=== PATIENT | male | born 1955 | race Caucasian/White ===

== ENCOUNTER 2023-07-15 16:07 | Outpatient (OUT) | payer MEDICARE, SELFPAY ==
[2023-07-15 16:53] LABS: Anion Gap 14.5; Calcium 9.2 mg/dL (8.5-10.1); Carbon Dioxide 23.5 mmol/L (21.0-32.0); Chloride 100 mmol/L (98-107); Estimated GFR (African America >60 (>=60); Estimated GFR (Non-African Ame >60 (>=60); Glucose 136 mg/dL (74-106); Magnesium 2.2 mg/dL (1.8-2.4); Sodium 134 mmol/L (136-145)
== END 2023-07-15 16:08 | disposition home or self-care (01) ==
PROVIDERS: PCP Family Medicine; Visit Provider Internal Medicine Interventional Cardiology
DX: I50.22 Chronic systolic (congestive) heart failure (principal)
CPT/HCPCS: 36415; 80048; 83735; 83880

== ENCOUNTER 2023-08-10 12:55 | Outpatient (OUT) | payer MEDICARE, SELFPAY ==
[2023-08-10 13:34] LABS: Basophils Absolute Auto 0.1 10^3/uL (0.0-0.1); Basophils Percent Auto 0.7 % (0.2-2.0); Eosinophils Absolute Auto 0.1 10^3/uL (0.0-0.7); Eosinophils Percent Auto 1.1 % (0.9-7.0); Hematocrit 38.8 % (42.0-54.0); Hemoglobin 12.3 g/dL (14.0-18.0); Immature Granulocytes Abs Auto 0.03 10^3/uL (0.00-0.03); Immature Granulocytes Pct Auto 0.3 % (0.0-0.5); Lymphocytes Absolute Auto 0.7 10^3/uL (1.2-3.8); Lymphocytes Percent Auto 6.9 % (20.5-60.0); Mean Corpuscular HGB Conc 31.7 g/dL (29.9-35.2); Mean Corpuscular Hemoglobin 27.3 pg (25.9-34.0); Mean Corpuscular Volume 86.2 fL (80.0-94.0); Monocytes Absolute Auto 0.7 10^3/uL (0.3-0.8); Monocytes Percent Auto 6.9 % (1.7-12.0); Neutrophils Absolute Auto 7.9 10^3/uL (1.4-6.5); Neutrophils Percent Auto 84.1 % (43.0-75.0); Platelet Count 334 10^3/uL (150-450); Red Cell Distribution Width 16.2 % (11.0-15.0); White Blood Count 9.4 10^3/uL (4.0-11.0)
[2023-08-10 13:50] LABS: Estimated Average Glucose 183 mg/dL
[2023-08-10 14:00] LABS: Creatinine Urine Random 42.58 mg/dL (20.00-300.00); Microalbumin Urine Random 2.3 mg/dL (<=30.0)
[2023-08-10 14:34] LABS: Alanine Aminotransferase 25 U/L (16-63); Albumin Globulin Ratio 0.7; Alkaline Phosphatase 135 U/L (46-116); Anion Gap 14.8; Aspartate Amino Transferase 17 U/L (15-37); BUN Creatinine Ratio 18.3; Bilirubin Total 0.6 mg/dL (0.2-1.0); Calcium 8.8 mg/dL (8.5-10.1); Carbon Dioxide 24.3 mmol/L (21.0-32.0); Chloride 99 mmol/L (98-107); Cholesterol 127 mg/dL (<=200); Creatine Kinase 49 U/L (39-308); Estimated GFR (African America >60 (>=60); Estimated GFR (Non-African Ame >60 (>=60); Globulin 4.4 g/dL; Glucose 209 mg/dL (74-106); HDL Cholesterol 32 mg/dL (40-60); Potassium 4.1 mmol/L (3.5-5.1); Sodium 134 mmol/L (136-145); Total Protein 7.4 g/dL (6.4-8.2); Triglycerides 53 mg/dL (<=150); VLDL CHOLESTEROL 10.6 mg/dL
== END 2023-08-10 12:56 | disposition home or self-care (01) ==
LOC: LAB 12:56
PROVIDERS: PCP Internal Medicine; Visit Provider Internal Medicine
DX: M79.10 Myalgia, unspecified site (principal); E11.9 Type 2 diabetes mellitus without complications; E78.5 Hyperlipidemia, unspecified
CPT/HCPCS: 36415; 80053; 80061; 82043; 82550; 82570; 83036; 85025

== ENCOUNTER 2023-08-30 10:48 | Outpatient (OUT) | payer MEDICARE, SELFPAY ==
--- OUTSIDE RECORDS SUMMARY | 2023-08-30 10:55 | XMS_ITS | CCD ---
Author Name Unknown Address [address] [place] [address] Organization [facility] Care Team Providers Care Furnace Repairer Name Role Phone DEEP, QUYEN Unavailable Unavailable DEEP, QUYEN Unavailable Unavailable HOUSE, MARK Unavailable Unavailable HOUSE, MARK Unavailable Unavailable CARSON ASHLEY Consulting Unavailable JENNY, FRANCA Attending Unavailable JENNY, FRANCA Admitting Unavailable JENNY, FRANCA Consulting Unavailable House DO, Mark P Primary Care Provider House DOMark P Primary Care Provider HOUSE, MARK P Referring Unavailable HOUSE, MARK P Primary Care Unavailable HOUSE, MARK P Referring Unavailable HOUSE, MARK P Primary Care Unavailable Shaikh Bautista MD Primary Care Provider SHAIKH BAUTISTA Attending Unavailable Zeeshan Carmichael MD Attending Unavailable HOUSE, MARK P Primary Care Unavailable Amol BARRAGAN, Zeeshan Trammell Attending Unavailable HOUSE, MARK P Primary Care Unavailable HOUSE, MARK P Primary Care Unavailable Zeeshan Carmichael MD Attending Unavailable HOUSE, MARK P Primary Care Unavailable Zeeshan Carmichael MD Attending Unavailable HOUSE, MARK P Primary Care Unavailable Zeeshan Carmcihael MD Attending Unavailable HOUSE, MARK P Primary Care Unavailable Zeeshan Carmichael MD Attending Unavailable HOUSE, MARK P Primary Care Unavailable HOUSE, MARK P Attending Unavailable HOUSE, MARK P Referring Unavailable HOUSE, MARK P Primary Care Unavailable HOUSE, MARK P Referring Unavailable HOUSE, MARK P Primary Care Unavailable HOUSE, MARK P Referring Unavailable HOUSE, MARK P Primary Care Unavailable HOUSE, MARK P Referring Unavailable HOUSE, MARK P Primary Care Unavailable HOUSE, MARK P Referring Unavailable HOUSE, MARK P Primary Care Unavailable HOUSE, MARK P Referring Unavailable HOUSE, MARK P Primary Care Unavailable HOUSE, MARK P Referring Unavailable HOUSE, MARK P Primary Care Unavailable HOUSE, MARK P Referring Unavailable HOUSE, MARK P Primary Care Unavailable HOUSE, MARK P Referring Unavailable HOUSE, MARK P Primary Care Unavailable HOUSE, MARK P Referring Unavailable HOUSE, MARK P Primary Care Unavailable HOUSE, MARK P Referring Unavailable HOUSE, MARK P Primary Care Unavailable HOUSE, MARK P Referring Unavailable HOUSE, MARK P Primary Care Unavailable HOUSE, MARK P Referring Unavailable HOUSE, MARK P Primary Care Unavailable HOUSE, MARK P Referring Unavailable HOUSE, MARK P Primary Care Unavailable HOUSE, MARK P Referring Unavailable HOUSE, MARK P Primary Care Unavailable HOUSE, MARK P Referring Unavailable HOUSE, MARK P Primary Care Unavailable HOUSE, MARK P Referring Unavailable HOUSE, MARK P Primary Care Unavailable HOUSE, MARK P Referring Unavailable HOUSE, MARK P Primary Care Unavailable JAVIER, BRI Referring Unavailable DEEP, QUYEN Attending Unavailable DEEP, QUYEN Referring Unavailable SHAWNA, SHELDON Attending Unavailable EFRAIN, SARMED Referring Unavailable SANAULLAH, KATY Referring Unavailable SANAULLAH, KATY Referring Unavailable JAVIER, BRI Referring Unavailable JAVIER, BRI Admitting Unavailable GANGWANI, YUSUF MARISCAL Attending Unavailab le MOUKARBELCLARISSA Attending Unavailable HERCHER, LETICIA Referring Unavailable HERCHER, LETICIA Referring Unavailable JOY, ZAKI Attending Unavailable RENETTA, HANI Referring Unavailable EFRAIN, SARMED Referring Unavailable RICHARD, TOMÁS Referring Unavailable SANAULLAH, KATY Referring Unavailable RENETTA, HANI Referring Unavailable GANGWANI, YUSUF MARISCAL Referring Unavailab le RENETTA, HANI Referring Unavailable EFRAIN, SARMED Referring Unavailable EFRAIN, SARMED Referring Unavailable JAVIER, BRI Admitting Unavailable EFRAIN, SARMED Attending Unavailable LOYOLA, LACEY Referring Unavailable LOYOLA, LACEY Referring Unavailable EFRAIN, SARMED Referring Unavailable EFRAIN, SARMED Referring Unavailable Allergies Allergy Classification Reported Allergen(s) Allergy Type Date of Onset Reaction(s) Facility (2 sources) codeine; Translations: [CODEINE PHOSPHATE] Drug Allergy 05-08-[address] [facility] Repository (4 sources) Codeine; Translations: [CODEINE] Drug Allergy 05-10-2023 [facility] Repository (5 sources) Codeine Drug Allergy 05-10-2023 [facility] Medications Current Medications Medication Drug Class(es) Dates Sig (Normalized) Sig (Original) aspirin 81 mg delayed release oral tablet (3 sources) Platelet Aggregation Inhibitor, Nonsteroidal Anti-inflammatory Drug take 1 tablet by mouth in the morning aspirin 81 MG EC tablet Take 81 mg by mouth in the morning. 0 Active atenolol 25 mg oral tablet (5 sources) beta-Adrenergic Yue take 1 tablet by mouth in the morning atenoloL (TENORMIN) 25 mg tablet Take 1 tablet (25 mg total) by mouth in the morning. 0 Active clopidogrel 75 mg oral tablet (8 sources) P2Y12 Platelet Inhibitor take 1 tablet by mouth in the morning clopidogrel (Plavix) 75 MG tablet Take 75 mg by mouth in the morning. 0 Active empagliflozin 25 mg oral tablet (8 sources) Sodium-Glucose Cotransporter 2 Inhibitor take 25 mg by mouth in the morning empagliflozin (Jardiance) 25 MG Indications: Heart Failure Take 25 mg by mouth in the morning. 0 Active take 1 tablet by mouth in the mo rning empagliflozin (JARDIANCE) 10 mg tablet tablet Take 1 tablet (10 mg total) by mouth in the morning. 0 Active isosorbide dinitrate 5 mg oral tablet (5 sources) Nitrate Vasodilator take 1 tablet by mouth three times daily at mealtime isosorbide dinitrate (ISORDIL) 5 mg tablet Take 1 tablet (5 mg total) by mouth 3 (three) times a day with meals. 0 Active losartan potassium 25 mg oral tablet (5 sources) Angiotensin 2 Receptor Yue take 1 tablet by mouth in the morning losartan (COZAAR) 25 mg tablet Take 1 tablet (25 mg total) by mouth in the morning. 0 Active 24 hr metoprolol succinate 50 mg extended release oral tablet (3 sources) beta-Adrenergic Yue Start: 06-16-20 take 1 tablet by mouth every twenty-four hours in the morning metoprolol succinate XL (Toprol-XL) 50 MG 24 hr tablet Take 50 mg by mouth in the morning. 0 06/16/2023 Active rosuvastatin calcium 20 mg oral tablet (8 sources) HMG-CoA Reductase Inhibitor Start: 06-16-20 End: 06-15-20 24 take 1 tablet by mouth in the morning rosuvastatin (Crestor) 20 MG tablet Take 20 mg by mouth in the morning. 0 06/16/2023 06/15/2024 Active take 1 tablet by mouth in the mo rning rosuvastatin (CRESTOR) 5 mg tablet Take 1 tablet (5 mg total) by mouth in the morning. 0 Active sacubitril 24 mg / valsartan 26 mg oral tablet (3 sources) Angiotensin 2 Receptor Yue Start: 06-16-2023 take 1 tablet by mouth in the morning sacubitril-valsartan (Entresto) 24-26 MG tablet Take 1 tablet by mouth in the morning and 1 tablet before bedtime. 0 06/16/2023 Active spironolactone 25 mg oral tablet (3 sources) Aldosterone Antagonist Start: 06-16-2023 take 1 tablet by mouth in the morning spironolactone (Aldactone) 25 MG tablet Take 25 mg by mouth in the morning. 0 06/16/2023 Active tamsulosin hydrochloride 0.4 mg oral capsule (8 sources) alpha-Adrenergic Yue Start: 02-17-2023 take 1 capsule by mouth every twenty-four hours in the morning tamsulosin (Flomax) 0.4 MG 24 hr capsule Take 0.4 mg by mouth in the morning. 0 02/17/2023 Active take 1 capsule by mouth once kiara ly tamsulosin (FLOMAX) 0.4 mg capsule Take 1 capsule (0.4 mg total) by mouth nightly. 0 Active Completed/Discontinued Medications Medication Drug Class(es) Dates Sig (Normalized) Sig (Original) alogliptin 12.5 mg oral tablet (7 sources) End: 08-09-2023 take 1 tablet by mouth in the morning alogliptin (Nesina) 12.5 MG tablet Take 12.5 mg by mouth in the morning. 0 08/09/2023 Discontinued (Therapy completed) diclofenac sodium 75 mg delayed release oral tablet (2 sources) Nonsteroidal Anti-inflammatory Drug End: 08-09-2023 take 1 tablet by mouth in the morning diclofenac (Voltaren) 75 MG EC tablet Take 75 mg by mouth in the morning and 75 mg before bedtime. Do not crush, chew, or split.. 0 08/09/2023 Discontinued (Side effects) 24 hr isosorbide mononitrate 30 mg extended release oral tablet (2 sources) Nitrate Vasodilator Start: 02-16-2023 End: 08-09-2023 take 1 tablet by mouth in the morning, then take 1 tablet by mouth every twenty-four hours isosorbide mononitrate ER (Imdur) 30 MG 24 hr tablet Take 30 mg by mouth in the morning. 0 02/16/2023 08/09/2023 Discontinued (Therapy completed) Problems Active Problems Problem Classification Problem Date Documented Date Episodic/Chronic Acute myocardial infarction (7 sources) Acute subendocardial infarction; Translations: [Non-ST elevation (NSTEMI) myocardial infarction] Onset: 07-13-2023 07-13-2023 Chronic Administrative/social admission (5 sources) Patient encounter status; Translations: [Persons encountering health services in other specified circumstances] Onset: 08-09-2023 08-09-2023 Episodic Cardiac dysrhythmias (8 sources) Ventricular tachycardia; Translations: [Paroxysmal ventricular tachycardia] Onset: 06-12-2011 08-09-2023 Chronic Chronic obstructive pulmonary disease and bronchiectasis (5 sources) Chronic obstructive lung disease; Translations: [Chronic obstructive pulmonary disease, unspecified] Onset: 06-08-2023 08-09-2023 Chronic Conduction disorders (9 sources) Encounter for adjustment and management of automatic implantable cardiac defibrillator; Translations: [Automatic implantable cardiac defibrillator in situ] Onset: 11-13-2011 08-09-2023 Chronic Congestive heart failure; nonhypertensive (14 sources) Heart failure with reduced ejection fraction; Translations: [Unspecified systolic (congestive) heart failure] Onset: 06-05-2023 08-09-2023 Chronic Coronary atherosclerosis and other heart disease (11 sources) Atherosclerotic heart disease of [place] coronary artery without angina pectoris; Translations: [Coronary arteriosclerosis] Onset: 03-23-2018 08-09-2023 Chronic Coronary atherosclerosis and other heart disease (4 sources) Presence of coronary angioplasty implant and graft; Translations: [Presence of aortocoronary bypass graft] Onset: 03-23-2018 Episodic Diabetes mellitus without complication (5 sources) Type 2 diabetes mellitus without complication; Translations: [Type 2 diabetes mellitus without complications] Onset: 08-09-2023 08-09-2023 Chronic Disorders of lipid metabolism (9 sources) Hyperlipidemia, unspecified; Translations: [Hyperlipidemia] Onset: 01-30-2011 Resolved: 08-09-2023 08-09-2023 Chronic Esophageal disorders (3 sources) Gastroesophageal reflux disease; Translations: [Gastro-esophageal reflux disease without esophagitis] Onset: 06-11-2023 08-09-2023 Chronic Essential hypertension (8 sources) Essential (primary) hypertension; Translations: [Essential hypertension] Onset: 01-30-2011 08-09-2023 Chronic Hypertension with complications and secondary hypertension (2 sources) Hypertensive heart disease with heart failure; Translations: [Hypertensive heart disease with heart failure] Onset: 06-11-2023 Chronic Open wounds of extremities (3 sources) Amputated left lower limb above knee; Translations: [Complete traumatic amputation at level between left hip and knee, initial encounter] Onset: 08-09-2023 08-09-2023 Chronic Osteoarthritis (3 sources) Osteoarthritis; Translations: [Unspecified osteoarthritis, unspecified site] Onset: 06-11-2023 08-09-2023 Chronic Other aftercare (1 source) [facility] (current) use of aspirin; Translations: [RETIREMENT (CURRENT) USE OF ASPIRIN] Onset: 03-23-2018 Episodic Other aftercare (1 source) 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 (current) use of antithrombotics/antipl atelets; Translations: [PLANNER (CURRENT) USE OF ANTITHROMBOTICS/ANTIPL ATELETS] Onset: 03-23-2018 Episodic Other bone disease and musculoskeletal deformities (3 sources) History of amputation of lower limb above knee; Translations: [Acquired absence of unspecified leg above knee] Onset: 03-17-2018 08-09-2023 Chronic Other connective tissue disease (2 sources) Muscle pain; Translations: [Myalgia, unspecified site] 08-09-2023 Episodic Other connective tissue disease (3 sources) Pain in right foot; Translations: [Pain in right foot] Onset: 08-09-2023 08-09-2023 Episodic Other lower respiratory disease (3 sources) Cough; Translations: [COUGH] Onset: 02-24-2021 Episodic Other lower respiratory disease (2 sources) Shortness of breath; Translations: [Shortness of breath] Onset: 06-05-2023 Episodic Other nervous system disorders (3 sources) Phantom limb syndrome with pain; Translations: [Phantom limb syndrome with pain] Onset: 06-11-2023 08-09-2023 Chronic Other non-traumatic joint disorders (4 sources) Pain in right shoulder; Translations: [Pain in joint, shoulder region] Onset: 07-21-2023 08-09-2023 Episodic Other non-traumatic joint disorders (1 source) Pain in left shoulder; Translations: [Pain in left shoulder] Onset: 07-21-2023 Episodic Meli-; endo-; and myocarditis; cardiomyopathy (3 sources) Dilated cardiomyopathy; Translations: [Cardiomyopathy in diseases classified elsewhere] Onset: 03-23-2018 Chronic Screening or history of mental health and substance abuse (2 sources) Personal history of nicotine dependence; Translations: [PERSONAL HISTORY OF NICOTINE DEPENDENCE] Onset: 03-23-2018 Episodic Unclassified (2 sources) Unknown / UNK(Unknown) Onset: 03-23-2018 Unclassified (1 source) Other ventricular tachycardia; Translations: [Other ventricular tachycardia] Onset: 06-08-2023 Viral infection (1 source) COVID-19; Translations: [COVID-19] Onset: 02-26-2021 Past or Other Problems Problem Classification Problem Date Documented Da te Episodic/Chronic Cardiac dysrhythmias (2 sources) Palpitations; Translations: [Palpitations] Onset: 09-03-2022 Episodic Rheumatoid arthritis and related disease (4 sources) Rheumatoid arthritis, unspecified; Translations: [Rheumatoid arthritis] Onset: 01-30-2011 Resolved: 08-09-2023 08-09-2023 Chronic Unclassified (1 source) Other ventricular tachycardia; Translations: [Other ventricular tachycardia] Onset: 06-11-2023 Results Test Name Value Interpretation Reference Range Facility 36on 08-27-2023 36 LM for patient to re turn my call. Note faxed to Jessica at [facility] in [place]. Normal [facility] 36on 08-26-2023 36 [facility] 36 Jessica from [facility] (fax#: [phone]) called requesting clearance for Mr. Bolton to return to cardiac rehab. You can always put it in your note if you prefer, and then let me know once it's finished. I'll fax it over to them. Thanks!! [facility] 36on 08-23-2023 36 [facility] Telephoneon 08-23-2023 Telephone [facility] 30on 08-21-2023 30 [facility] BASIC METABOLIC PANELon 07-30 Anion gap [Moles/Vol] 13 mmol/L Normal 7-20 [facility] Comment on above: Performed By: #### [id number] ####[facility] (BEAKER)[address] [place] [address] Calcium [Mass/Vol] 8.3 mg/dL Low 8.6-10.3 [facility] Comment on above: Performed By: #### [id number] ####[facility] ([facility])[address] [place] [address] Chloride [Moles/Vol] 106 mmol/L Normal 98-107 [facility] Comment on above: Performed By: #### [id number] ####[facility] [place] [address] CO2 [Moles/Vol] 19 mmol/L Low 21-31 [facility] Comment on above: Performed By: #### [id number] ####[facility] [place] [address] Creatinine [Mass/Vol] 0.95 mg/dL Normal 0.70-1.30 [facility] Comment on above: Performed By: #### [id number] ####[facility] [place] [address] GLOMERULAR FILTRATION RATE ML/MIN/1.73 SQ M.PREDICTED 87.2 mL/min/1.73m*2 Normal >60.0 [facility] Comment on above: Result Comment: [facility]???s estimated glomerular filtration rate (eGFR) will no longer include consideration of race in its calculation. The National Kidney Foundation???s eGFR Task Force developed new recommendations for the estimation of the glomerular filtration rate in the [place] They recommend immediate implementation of the new equation refit without the race variable in all laboratories because the calculation does not include race. In addition to not including race in the calculation and reporting, it included diversity in its development, and has acceptable performance characteristics and potential consequences that do not disproportionately affect any one group of individuals. Performed By: #### L [id number] ####[facility] ([facility])[address] [place] [address] Glucose [Mass/Vol] 154 mg/dL High 70-100 [facility] Comment on above: Performed By: #### [id number] ####[facility] (BEAKER)[address] [place] [address] Potassium [Moles/Vol] 3.9 mmol/L Normal 3.5-5.1 [facility] Comment on above: Performed By: #### [id number] ####[facility] ([facility]ER)[address] [place] [address] Sodium [Moles/Vol] 134 mmol/L Low 136-145 [facility] Comment on above: Performed By: #### [id number] ####[facility] ([facility]ER)[address] [place] [address] Urea nitrogen [Mass/Vol] 22 mg/dL Normal 7-25 [facility] Comment on above: Performed By: #### [id number] ####[facility] ([facility]ER)[address] [place] [address] UREA NITROGEN/CREATIN INE (MASS RATIO) IN SER/PLAS 23.[address] [facility] Comment on above: Performed By: #### [id number] ####[facility] ([facility])[address] [place] [address] CBC WITH AUTO DIFFERENTIALon 08-21-2023 Basophils (Bld) [#/Vol] 0.06 10*3/uL Normal 0.00-0.20 [facility] Comment on above: Performed By: #### [id number] ####[facility] (BEAKER)[address] [place] [address] Basophils/100 WBC (Bld) 0.8 % Normal 0.0-1.0 [facility] Comment on above: Performed By: #### [id number] ####[facility] ([facility]ER)[address] [place] [address] Eosinophils (Bld) [#/Vol] 0.38 10*3/uL Normal 0.00-0.50 [facility] Comment on above: Performed By: #### [id number] ####[facility] ([facility]ER)[address] [place] [address] Eosinophils/100 WBC (Bld) 4.8 % Normal 0.0-6.0 [facility] Comment on above: Performed By: #### [id number] ####[facility] (BEAKER)[address] [place] [address] Erythrocyte distribution width (RBC) [Ratio] 18.4 % High 11.5-15.0 [facility] Comment on above: Performed By: #### [id number] ####[facility] (BEAKER)[address] [place] [address] ERYTHROCYTE MEAN CORPUSCULAR HEMOGLOBIN CONCENTRATION (G/DL) BY AUTOMATED 32.6 g/dL Normal 32.0-35.0 [facility] Comment on above: Performed By: #### [id number] ####[facility] (BEAKER)[address] [place] [address] Hematocrit (Bld) [Volume fraction] 35.3 % Low 39.0-55.0 [facility] Comment on above: Performed By: #### [id number] ####[facility] (BE[facility]ER)[address] [place] [address] Hemoglobin (Bld) [Mass/Vol] 11.5 g/dL Low 13.0-17.0 [facility] Comment on above: Performed By: #### [id number] ####[facility] (BE[facility]ER)[address] [place] [address] Immature granulocytes (Bld) [#/Vol] 0.06 10*3/uL Normal 0.00-0.20 [facility] Comment on above: Performed By: #### [id number] ####[facility] (BEAKER)[address] [place] [address] Immature granulocytes/100 WBC (Bld) 0.8 % Normal 0.0-1.0 [facility] Comment on above: Performed By: #### [id number] ####[facility] (BEAKER)[address] [place] [address] Lymphocytes (Bld) [#/Vol] 0.94 10*3/uL Low 1.20-4.00 [facility] Comment on above: Performed By: #### [id number] ####[facility] (BEAKER)[address] [place] [address] Lymphocytes/100 WBC (Bld) 11.8 % Low 20.0-45.0 [facility] Comment on above: Performed By: #### [id number] ####[facility] (BE[facility]ER)[address] [place] [address] MCH (RBC) [Entitic mass] 27.5 pg Normal 27.0-33.0 [facility] Comment on above: Performed By: #### [id number] ####[facility] ([facility]ER)[address] [place] [address] MCV (RBC) [Entitic vol] 84.4 fL Normal 82.0-98.0 [facility] Comment on above: Performed By: #### [id number] ####[facility] ([facility]ER)[address] [place] [address] Monocytes (Bld) [#/Vol] 0.86 10*3/uL Normal 0.10-1.00 [facility] Comment on above: Performed By: #### [id number] ####[facility] ([facility]ER)[address] [place] [address] Monocytes/100 WBC (Bld) 10.8 % Normal 5.0-12.0 [facility] Comment on above: Performed By: #### [id number] ####[facility] ([facility]AKER)[address] [place] [address] Neutrophils (Bld) [#/Vol] 5.67 10*3/uL Normal 1.60-7.60 [facility] Comment on above: Performed By: #### [id number] ####[facility] (BEAKER)[address] [place] [address] Neutrophils/100 WBC (Bld) 71.0 % Normal 40.0-72.0 [facility] Comment on above: Performed By: #### [id number] ####[facility] (BEAKER)[address] [place] [address] NRBC (PER 100 WBCS) BY AUTOMATED COUNT 0.0 % Normal 0 [facility] Comment on above: Performed By: #### [id number] ####[facility] ([facility]ER)[address] [place] [address] PLATELETS (10*3/UL) IN BLOOD AUTOMATED COUNT 288 10*3/uL Normal 150-400 [facility] Comment on above: Performed By: #### [id number] ####[facility] ([facility]ER)[address] [place] [address] RBC (Bld) [#/Vol] 4.18 10*6/uL Low 4.20-5.70 [facility] Comment on above: Performed By: #### [id number] ####[facility] ([facility]ER)[address] [place] [address] WBC (Bld) [#/Vol] 7.97 10*3/uL Normal 4.00-10.60 [facility] Comment on above: Performed By: #### [id number] ####[facility] ([facility])[address] [place] [address] DSon 08-21-[address] [facility] MAGNESIUMon 08-21-2023 Magnesium [Mass/Vol] 2.1 mg/dL Normal 1.9-2.7 [facility] Comment on above: Performed By: #### [id number] ####[facility] (BEAKER)[address] [place] [address] POCT GLUCOSE METER UNSOLICIT ED RESULTSon 08-21-2023 Glucose [Mass/Vol] 141 mg/dL High 70-105 [facility] Comment on above: Order Comment: Waived Testing in the ED is performed under the ED CLIA certificate #[id number]. Result Comment: og hardy Performed By: #### L [id number] ####[facility] ([facility]ER)[address] [place] [address] 30on 08-20-2023 30 The patient is Moder ately Stable - Low risk of patient condition declining or worsening The patient's goals for the shift include comfort, rest The clinical goals for the shift include Stable VS, comfort Normal [facility] [address] [facility] [address] [facility] BASIC METABOLIC PANELon 07-30 Anion gap [Moles/Vol] 13 mmol/L Normal 7-20 [facility] Comment on above: Performed By: #### [id number] ####[facility] (BEAKER)[address] [place] [address] Calcium [Mass/Vol] 8.7 mg/dL Normal 8.6-10.3 [facility] Comment on above: Performed By: #### [id number] ####[facility] ([facility]ER)[address] [place] [address] Chloride [Moles/Vol] 106 mmol/L Normal 98-107 [facility] Comment on above: Performed By: #### [id number] ####[facility] ([facility]ER)[address] [place] [address] CO2 [Moles/Vol] 20 mmol/L Low 21-31 [facility] Comment on above: Performed By: #### [id number] ####[facility] ([facility]AKER)[address] [place] [address] Creatinine [Mass/Vol] 1.12 mg/dL Normal 0.70-1.30 [facility] Comment on above: Performed By: #### [id number] ####[facility] (BEAKER)[address] [place] [address] GLOMERULAR FILTRATION RATE ML/MIN/1.73 SQ M.PREDICTED 71.6 mL/min/1.73m*2 Normal >60.0 [facility] Comment on above: Result Comment: The [facility]???s estimated glomerular filtration rate (eGFR) will no longer include consideration of race in its calculation. The National Kidney Foundation???s eGFR Task Force developed new recommendations for the estimation of the glomerular filtration rate in the [place] They recommend immediate implementation of the new equation refit without the race variable in all laboratories because the calculation does not include race. In addition to not including race in the calculation and reporting, it included diversity in its development, and has acceptable performance characteristics and potential consequences that do not disproportionately affect any one group of individuals. Performed By: #### L [id number] ####[facility] ([facility])[address] [place] [address] Glucose [Mass/Vol] 137 mg/dL High 70-100 [facility] Comment on above: Performed By: #### [id number] ####[facility] ([facility])[address] [place] [address] Potassium [Moles/Vol] 3.9 mmol/L Normal 3.5-5.1 [facility] Comment on above: Performed By: #### [id number] ####[facility] ([facility])[address] [place] [address] Sodium [Moles/Vol] 135 mmol/L Low 136-145 [facility] Comment on above: Performed By: #### [id number] ####[facility] ([facility])[address] [place] [address] Urea nitrogen [Mass/Vol] 25 mg/dL Normal 7-25 [facility] Comment on above: Performed By: #### [id number] ####[facility] ([facility])[address] [place] [address] UREA NITROGEN/CREATIN INE (MASS RATIO) IN SER/PLAS 22.[address] [facility] Comment on above: Performed By: #### [id number] ####[facility] ([facility])[address] [place] [address] CBC WITH AUTO DIFFERENTIALon 08-20-2023 Basophils (Bld) [#/Vol] 0.06 10*3/uL Normal 0.00-0.20 [facility] Comment on above: Performed By: #### [id number] ####[facility] ([facility])[address] [place] [address] Basophils/100 WBC (Bld) 0.7 % Normal 0.0-1.0 [facility] Comment on above: Performed By: #### [id number] ####[facility] (BEAKER)[address] [place] [address] Eosinophils (Bld) [#/Vol] 0.39 10*3/uL Normal 0.00-0.50 [facility] Comment on above: Performed By: #### [id number] ####[facility] (BEAKER)[address] [place] [address] Eosinophils/100 WBC (Bld) 4.3 % Normal 0.0-6.0 [facility] Comment on above: Performed By: #### [id number] ####[facility] (BEAKER)[address] [place] [address] Erythrocyte distribution width (RBC) [Ratio] 18.3 % High 11.5-15.0 [facility] Comment on above: Performed By: #### [id number] ####[facility] (BE[facility]ER)[address] [place] [address] ERYTHROCYTE MEAN CORPUSCULAR HEMOGLOBIN CONCENTRATION (G/DL) BY AUTOMATED 32.5 g/dL Normal 32.0-35.0 [facility] Comment on above: Performed By: #### [id number] ####[facility] (BEAKER)[address] [place] [address] Hematocrit (Bld) [Volume fraction] 36.3 % Low 39.0-55.0 [facility] Comment on above: Performed By: #### [id number] ####[facility] (BE[facility]ER)[address] [place] [address] Hemoglobin (Bld) [Mass/Vol] 11.8 g/dL Low 13.0-17.0 [facility] Comment on above: Performed By: #### [id number] ####[facility] (BEAKER)[address] [place] [address] Immature granulocytes (Bld) [#/Vol] 0.05 10*3/uL Normal 0.00-0.20 [facility] Comment on above: Performed By: #### [id number] ####[facility] (BEAKER)[address] [place] [address] Immature granulocytes/100 WBC (Bld) 0.5 % Normal 0.0-1.0 [facility] Comment on above: Performed By: #### [id number] ####[facility] (BEAKER)[address] [place] [address] Lymphocytes (Bld) [#/Vol] 0.93 10*3/uL Low 1.20-4.00 [facility] Comment on above: Performed By: #### [id number] ####[facility] (BEAKER)[address] [place] [address] Lymphocytes/100 WBC (Bld) 10.2 % Low 20.0-45.0 [facility] Comment on above: Performed By: #### [id number] ####[facility] (BEAKER)[address] [place] [address] MCH (RBC) [Entitic mass] 27.7 pg Normal 27.0-33.0 [facility] Comment on above: Performed By: #### [id number] ####[facility] (BEAKER)[address] [place] [address] MCV (RBC) [Entitic vol] 85.2 fL Normal 82.0-98.0 [facility] Comment on above: Performed By: #### [id number] ####[facility] (BEAKER)[address] [place] [address] Monocytes (Bld) [#/Vol] 0.94 10*3/uL Normal 0.10-1.00 [facility] Comment on above: Performed By: #### [id number] ####[facility] (BEAKER)[address] [place] [address] Monocytes/100 WBC (Bld) 10.3 % Normal 5.0-12.0 [facility] Comment on above: Performed By: #### [id number] ####[facility] (BEAKER)[address] [place] [address] Neutrophils (Bld) [#/Vol] 6.77 10*3/uL Normal 1.60-7.60 [facility] Comment on above: Performed By: #### [id number] ####[facility] (BEAKER)[address] [place] [address] Neutrophils/100 WBC (Bld) 74.0 % High 40.0-72.0 [facility] Comment on above: Performed By: #### [id number] ####[facility] (BEAKER)[address] [place] [address] NRBC (PER 100 WBCS) BY AUTOMATED COUNT 0.0 % Normal 0 [facility] Comment on above: Performed By: #### [id number] ####[facility] (BEAKER)[address] [place] [address] PLATELETS (10*3/UL) IN BLOOD AUTOMATED COUNT 287 10*3/uL Normal 150-400 [facility] Comment on above: Performed By: #### [id number] ####[facility] (BEAKER)[address] [place] [address] RBC (Bld) [#/Vol] 4.26 10*6/uL Normal 4.20-5.70 [facility] Comment on above: Performed By: #### [id number] ####[facility] (BEAKER)[address] [place] [address] WBC (Bld) [#/Vol] 9.14 10*3/uL Normal 4.00-10.60 [facility] Comment on above: Performed By: #### [id number] ####[facility] (BEAKER)[address] [place] [address] MAGNESIUMon 08-20-2023 Magnesium [Mass/Vol] 2.1 mg/dL Normal 1.9-2.7 [facility] Comment on above: Performed By: #### [id number] ####[facility] ([facility])[address] [place] [address] POCT GLUCOSE METER UNSOLICIT ED RESULTSon 08-20-2023 Glucose [Mass/Vol] 229 mg/dL High 70-105 [facility] Comment on above: Order Comment: Waived Testing in the ED is performed under the ED CLIA certificate #[id number]. Result Comment: [email or web address] Performed By: #### L [id number] ####[facility] ([facility])[address] [place] [address] Glucose [Mass/Vol] 179 mg/dL High 70-105 [facility] Comment on above: Order Comment: Waived Testing in the ED is performed under the ED CLIA certificate #[id number]. Result Comment: [email or web address] Performed By: #### L [id number] ####[facility] ([facility])[address] [place] [address] Glucose [Mass/Vol] 242 mg/dL High 70-105 [facility] Comment on above: Order Comment: Waived Testing in the ED is performed under the ED CLIA certificate #[id number]. Result Comment: vcar mon Performed By: #### L [id number] ####[facility] ([facility])[address] [place] [address] Glucose [Mass/Vol] 119 mg/dL High 70-105 [facility] Comment on above: Order Comment: Waived Testing in the ED is performed under the ED CLIA certificate #[id number]. Result Comment: [email or web address] Performed By: #### L [id number] ####[facility] ([facility])[address] [place] [address] 30on 08-19-[address] [facility] [address] [facility] BASIC METABOLIC PANELon 07-30 Anion gap [Moles/Vol] 15 mmol/L Normal 7-20 [facility] Comment on above: Performed By: #### [id number] ####[facility] ([facility])[address] [place] [address] Calcium [Mass/Vol] 8.5 mg/dL Low 8.6-10.3 [facility] Comment on above: Performed By: #### [id number] ####[facility] (BEAKER)[address] [place] [address] Chloride [Moles/Vol] 107 mmol/L Normal 98-107 [facility] Comment on above: Performed By: #### [id number] ####[facility] (BE[facility]ER)[address] [place] [address] CO2 [Moles/Vol] 17 mmol/L Low 21-31 [facility] Comment on above: Performed By: #### [id number] ####[facility] (BE[facility]ER)[address] [place] [address] Creatinine [Mass/Vol] 1.10 mg/dL Normal 0.70-1.30 [facility] Comment on above: Performed By: #### [id number] ####[facility] (BEAKER)[address] [place] [address] GLOMERULAR FILTRATION RATE ML/MIN/1.73 SQ M.PREDICTED 73.1 mL/min/1.73m*2 Normal >60.0 [facility] Comment on above: Result Comment: The [facility]???s estimated glomerular filtration rate (eGFR) will no longer include consideration of race in its calculation. The National Kidney Foundation???s eGFR Task Force developed new recommendations for the estimation of the glomerular filtration rate in the [place] They recommend immediate implementation of the new equation refit without the race variable in all laboratories because the calculation does not include race. In addition to not including race in the calculation and reporting, it included diversity in its development, and has acceptable performance characteristics and potential consequences that do not disproportionately affect any one group of individuals. Performed By: #### L [id number] ####[facility] (BEAKER)[address] [place] [address] Glucose [Mass/Vol] 152 mg/dL High 70-100 [facility] Comment on above: Performed By: #### [id number] ####[facility] (BEAKER)[address] [place] [address] Potassium [Moles/Vol] 3.9 mmol/L Normal 3.5-5.1 [facility] Comment on above: Performed By: #### [id number] ####[facility] (BEAKER)[address] [place] [address] Sodium [Moles/Vol] 135 mmol/L Low 136-145 [facility] Comment on above: Performed By: #### [id number] ####[facility] (BEAKER)[address] [place] [address] Urea nitrogen [Mass/Vol] 24 mg/dL Normal 7-25 [facility] Comment on above: Performed By: #### [id number] ####[facility] (BEAKER)[address] [place] [address] UREA NITROGEN/CREATIN INE (MASS RATIO) IN SER/PLAS 21.[address] [facility] Comment on above: Performed By: #### [id number] ####[facility] (BEAKER)[address] [place] [address] CBC WITH AUTO DIFFERENTIALon 08-19-2023 Basophils (Bld) [#/Vol] 0.05 10*3/uL Normal 0.00-0.20 [facility] Comment on above: Performed By: #### [id number] ####[facility] (BEAKER)[address] [place] [address] Basophils/100 WBC (Bld) 0.5 % Normal 0.0-1.0 [facility] Comment on above: Performed By: #### [id number] ####[facility] (BEAKER)[address] [place] [address] Eosinophils (Bld) [#/Vol] 0.46 10*3/uL Normal 0.00-0.50 [facility] Comment on above: Performed By: #### [id number] ####[facility] (BEAKER)[address] [place] [address] Eosinophils/100 WBC (Bld) 4.7 % Normal 0.0-6.0 [facility] Comment on above: Performed By: #### [id number] ####[facility] (BEAKER)[address] [place] [address] Erythrocyte distribution width (RBC) [Ratio] 18.1 % High 11.5-15.0 [facility] Comment on above: Performed By: #### [id number] ####[facility] (BEAKER)[address] [place] [address] ERYTHROCYTE MEAN CORPUSCULAR HEMOGLOBIN CONCENTRATION (G/DL) BY AUTOMATED 32.0 g/dL Normal 32.0-35.0 [facility] Comment on above: Performed By: #### [id number] ####[facility] (BEAKER)[address] [place] [address] Hematocrit (Bld) [Volume fraction] 36.3 % Low 39.0-55.0 [facility] Comment on above: Performed By: #### [id number] ####[facility] (BEAKER)[address] [place] [address] Hemoglobin (Bld) [Mass/Vol] 11.6 g/dL Low 13.0-17.0 [facility] Comment on above: Performed By: #### [id number] ####[facility] (BEAKER)[address] [place] [address] Immature granulocytes (Bld) [#/Vol] 0.06 10*3/uL Normal 0.00-0.20 [facility] Comment on above: Performed By: #### [id number] ####[facility] (BEAKER)[address] [place] [address] Immature granulocytes/100 WBC (Bld) 0.6 % Normal 0.0-1.0 [facility] Comment on above: Performed By: #### [id number] ####[facility] (BEAKER)[address] [place] [address] Lymphocytes (Bld) [#/Vol] 0.96 10*3/uL Low 1.20-4.00 [facility] Comment on above: Performed By: #### [id number] ####[facility] (BEAKER)[address] [place] [address] Lymphocytes/100 WBC (Bld) 9.9 % Low 20.0-45.0 [facility] Comment on above: Performed By: #### [id number] ####[facility] (BEAKER)[address] [place] [address] MCH (RBC) [Entitic mass] 27.2 pg Normal 27.0-33.0 [facility] Comment on above: Performed By: #### [id number] ####[facility] (BEAKER)[address] [place] [address] MCV (RBC) [Entitic vol] 85.2 fL Normal 82.0-98.0 [facility] Comment on above: Performed By: #### [id number] ####[facility] (BEAKER)[address] [place] [address] Monocytes (Bld) [#/Vol] 1.01 10*3/uL High 0.10-1.00 [facility] Comment on above: Performed By: #### [id number] ####[facility] (BEAKER)[address] [place] [address] Monocytes/100 WBC (Bld) 10.4 % Normal 5.0-12.0 [facility] Comment on above: Performed By: #### [id number] ####[facility] (BEAKER)[address] [place] [address] Neutrophils (Bld) [#/Vol] 7.20 10*3/uL Normal 1.60-7.60 [facility] Comment on above: Performed By: #### [id number] ####[facility] (BEAKER)[address] [place] [address] Neutrophils/100 WBC (Bld) 73.9 % High 40.0-72.0 [facility] Comment on above: Performed By: #### [id number] ####[facility] (BEAKER)[address] [place] [address] NRBC (PER 100 WBCS) BY AUTOMATED COUNT 0.0 % Normal 0 [facility] Comment on above: Performed By: #### [id number] ####[facility] (BEAKER)[address] [place] [address] PLATELETS (10*3/UL) IN BLOOD AUTOMATED COUNT 270 10*3/uL Normal 150-400 [facility] Comment on above: Performed By: #### [id number] ####[facility] (BEAKER)[address] [place] [address] RBC (Bld) [#/Vol] 4.26 10*6/uL Normal 4.20-5.70 [facility] Comment on above: Performed By: #### [id number] ####[facility] (BEAKER)[address] [place] [address] WBC (Bld) [#/Vol] 9.74 10*3/uL Normal 4.00-10.60 [facility] Comment on above: Performed By: #### [id number] ####[facility] (BEAKER)[address] [place] [address] MAGNESIUMon 08-19-2023 Magnesium [Mass/Vol] 2.1 mg/dL Normal 1.9-2.7 [facility] Comment on above: Performed By: #### [id number] ####[facility] (BEAKER)[address] [place] [address] NURSNOTEon 08-19-[address] [facility] POCT GLUCOSE METER UNSOLICIT ED RESULTSon 08-19-2023 Glucose [Mass/Vol] 165 mg/dL High 70-105 [facility] Comment on above: Order Comment: Waived Testing in the ED is performed under the ED CLIA certificate #[id number]. Result Comment: [email or web address] Performed By: #### L [id number] ####[facility] (BEAKER)[address] [place] [address] Glucose [Mass/Vol] 240 mg/dL High 70-105 [facility] Comment on above: Order Comment: Waived Testing in the ED is performed under the ED CLIA certificate #[id number]. Result Comment: [email or web address] Performed By: #### L [id number] ####[facility] (BEAKER)[address] [place] [address] Glucose [Mass/Vol] 244 mg/dL High 70-105 [facility] Comment on above: Order Comment: Waived Testing in the ED is performed under the ED CLIA certificate #[id number]. Result Comment: vcar mon Performed By: #### L [id number] ####[facility] ([facility])[address] [place] [address] Glucose [Mass/Vol] 144 mg/dL High 70-105 [facility] Comment on above: Order Comment: Waived Testing in the ED is performed under the ED CLIA certificate #[id number]. Result Comment: vcar mon Performed By: #### L [id number] ####[facility] ([facility])[address] [place] [address] 30on 08-18-[address] [facility] BASIC METABOLIC PANELon 07-30 Anion gap [Moles/Vol] 11 mmol/L Normal 7-20 [facility] Comment on above: Performed By: #### [id number] ####[facility] (BEAKER)[address] [place] [address] Calcium [Mass/Vol] 8.1 mg/dL Low 8.6-10.3 [facility] Comment on above: Performed By: #### [id number] ####[facility] (BEAKER)[address] [place] [address] Chloride [Moles/Vol] 109 mmol/L High 98-107 [facility] Comment on above: Performed By: #### [id number] ####[facility] (BEAKER)[address] [place] [address] CO2 [Moles/Vol] 17 mmol/L Low 21-31 [facility] Comment on above: Performed By: #### [id number] ####[facility] ([facility])[address] [place] [address] Creatinine [Mass/Vol] 1.16 mg/dL Normal 0.70-1.30 [facility] Comment on above: Performed By: #### [id number] ####[facility] ([facility])[address] [place] [address] GLOMERULAR FILTRATION RATE ML/MIN/1.73 SQ M.PREDICTED 68.6 mL/min/1.73m*2 Normal >60.0 [facility] Comment on above: Result Comment: The [facility]???s estimated glomerular filtration rate (eGFR) will no longer include consideration of race in its calculation. The National Kidney Foundation???s eGFR Task Force developed new recommendations for the estimation of the glomerular filtration rate in the [place] They recommend immediate implementation of the new equation refit without the race variable in all laboratories because the calculation does not include race. In addition to not including race in the calculation and reporting, it included diversity in its development, and has acceptable performance characteristics and potential consequences that do not disproportionately affect any one group of individuals. Performed By: #### L [id number] ####[facility] (BEAKER)[address] [place] [address] Glucose [Mass/Vol] 238 mg/dL High 70-100 [facility] Comment on above: Performed By: #### [id number] ####[facility] [place] [address] Potassium [Moles/Vol] 4.2 mmol/L Normal 3.5-5.1 [facility] Comment on above: Performed By: #### [id number] ####[facility] ([facility])[address] [place] [address] Sodium [Moles/Vol] 133 mmol/L Low 136-145 [facility] Comment on above: Performed By: #### [id number] ####[facility] (BEAKER)[address] [place] [address] Urea nitrogen [Mass/Vol] 22 mg/dL Normal 7-25 [facility] Comment on above: Performed By: #### [id number] ####[facility] (BEAKER)[address] [place] [address] UREA NITROGEN/CREATIN INE (MASS RATIO) IN SER/PLAS 19.[address] [facility] Comment on above: Performed By: #### [id number] ####[facility] (BEAKER)[address] [place] [address] CBC WITH AUTO DIFFERENTIALon 08-18-2023 Basophils (Bld) [#/Vol] 0.05 10*3/uL Normal 0.00-0.20 [facility] Comment on above: Performed By: #### [id number] ####[facility] (BEAKER)[address] [place] [address] Basophils/100 WBC (Bld) 0.6 % Normal 0.0-1.0 [facility] Comment on above: Performed By: #### [id number] ####[facility] (BEAKER)[address] [place] [address] Eosinophils (Bld) [#/Vol] 0.42 10*3/uL Normal 0.00-0.50 [facility] Comment on above: Performed By: #### [id number] ####[facility] (BEAKER)[address] [place] [address] Eosinophils/100 WBC (Bld) 5.0 % Normal 0.0-6.0 [facility] Comment on above: Performed By: #### [id number] ####[facility] (BEAKER)[address] [place] [address] Erythrocyte distribution width (RBC) [Ratio] 17.8 % High 11.5-15.0 [facility] Comment on above: Performed By: #### [id number] ####[facility] LAB (BEAKER)[address] [place] [address] ERYTHROCYTE MEAN CORPUSCULAR HEMOGLOBIN CONCENTRATION (G/DL) BY AUTOMATED 32.6 g/dL Normal 32.0-35.0 [facility] Comment on above: Performed By: #### [id number] ####[facility] (BEAKER)[address] [place] [address] Hematocrit (Bld) [Volume fraction] 34.4 % Low 39.0-55.0 [facility] Comment on above: Performed By: #### [id number] ####[facility] (BEAKER)[address] [place] [address] Hemoglobin (Bld) [Mass/Vol] 11.2 g/dL Low 13.0-17.0 [facility] Comment on above: Performed By: #### [id number] ####[facility] (BEAKER)[address] [place] [address] Immature granulocytes (Bld) [#/Vol] 0.05 10*3/uL Normal 0.00-0.20 [facility] Comment on above: Performed By: #### [id number] ####[facility] ([facility])[address] [place] [address] Immature granulocytes/100 WBC (Bld) 0.6 % Normal 0.0-1.0 [facility] Comment on above: Performed By: #### [id number] ####[facility] ([facility])[address] [place] [address] Lymphocytes (Bld) [#/Vol] 0.69 10*3/uL Low 1.20-4.00 [facility] Comment on above: Performed By: #### [id number] ####[facility] ([facility])[address] [place] [address] Lymphocytes/100 WBC (Bld) 8.2 % Low 20.0-45.0 [facility] Comment on above: Performed By: #### [id number] ####[facility] ([facility])[address] [place] [address] MCH (RBC) [Entitic mass] 27.9 pg Normal 27.0-33.0 [facility] Comment on above: Performed By: #### [id number] ####[facility] ([facility])[address] [place] [address] MCV (RBC) [Entitic vol] 85.6 fL Normal 82.0-98.0 [facility] Comment on above: Performed By: #### [id number] ####[facility] ([facility])[address] [place] [address] Monocytes (Bld) [#/Vol] 0.91 10*3/uL Normal 0.10-1.00 [facility] Comment on above: Performed By: #### [id number] ####[facility] ([facility])[address] [place] [address] Monocytes/100 WBC (Bld) 10.8 % Normal 5.0-12.0 [facility] Comment on above: Performed By: #### [id number] ####[facility] ([facility])[address] [place] [address] Neutrophils (Bld) [#/Vol] 6.34 10*3/uL Normal 1.60-7.60 [facility] Comment on above: Performed By: #### [id number] ####[facility] ([facility])[address] [place] [address] Neutrophils/100 WBC (Bld) 74.8 % High 40.0-72.0 [facility] Comment on above: Performed By: #### [id number] ####[facility] ([facility])[address] [place] [address] NRBC (PER 100 WBCS) BY AUTOMATED COUNT 0.0 % Normal [address] [facility] Comment on above: Performed By: #### [id number] ####[facility] HOSP ITAL LAB (BEAKER)[address] [place] [address] PLATELETS (10*3/UL) IN BLOOD AUTOMATED COUNT 233 10*3/uL Normal 150-400 [facility] Comment on above: Performed By: #### [id number] ####[facility] HOSP ITAL LAB (BEAKER)[address] [place] [address] RBC (Bld) [#/Vol] 4.02 10*6/uL Low 4.20-5.70 [facility] Comment on above: Performed By: #### [id number] ####[facility] HOSP ITAL LAB (BEAKER)[address] [place] [address] WBC (Bld) [#/Vol] 8.46 10*3/uL Normal 4.00-10.60 [facility] Comment on above: Performed By: #### [id number] ####[facility] HOSP ITAL LAB (BEAKER)[address] [place] [address] DIGOXIN LEVELon 08-18-2023 DIGOXIN (NG/ML) IN SER/PLAS 0.9 ng/mL Normal 0.7-2 [facility] Comment on above: Performed By: #### [id number] ####[facility] HOSPIT AL LAB (BEAKER)[address] [place] [address] HEPATIC FUNCTION PANELon Albumin [Mass/Vol] 3.2 g/dL Low 3.5-5.7 [facility] Comment on above: Performed By: #### [id number] ####[facility] HOSPIT AL LAB (BEAKER)[address] [place] [address] ALP [Catalytic activity/Vol] 241 U/L High 34-104 [facility] Comment on above: Performed By: #### [id number] ####[facility] HOSPIT AL LAB (BEAKER)[address] [place] [address] ALT [Catalytic activity/Vol] 690 U/L High 7-52 [facility] Comment on above: Performed By: #### [id number] ####[facility] HOSPIT AL LAB (BEAKER)[address] [place] [address] AST [Catalytic activity/Vol] 111 U/L High 13-39 [facility] Comment on above: Performed By: #### [id number] ####[facility] HOSPIT AL LAB (BEAKER)[address] [place] [address] Bilirubin [Mass/Vol] 0.5 mg/dL Normal 0.3-1.0 [facility] Comment on above: Performed By: #### [id number] ####[facility] HOSPIT AL LAB (BEAKER)[address] [place] [address] Magnesium [Mass/Vol] 0.2 mg/dL Normal 0-0.2 [facility] Comment on above: Performed By: #### [id number] ####[facility] HOSPIT AL LAB (BEAKER)[address] [place] [address] Protein [Mass/Vol] 6.1 g/dL Normal 6.0-8.3 [facility] Comment on above: Performed By: #### [id number] ####[facility] HOSPIT AL LAB (BEAKER)[address] [place] [address] MAGNESIUMon 08-18-2023 Magnesium [Mass/Vol] 2.2 mg/dL Normal 1.9-2.7 [facility] Comment on above: Performed By: #### [id number] ####[facility] HOSPI BRONWYN LAB (BEAKER)[address] [place] [address] NURSNOTEon 08-18-[address] [facility] POCT GLUCOSE METER UNSOLICIT ED RESULTSon 08-18-2023 Glucose [Mass/Vol] 248 mg/dL High 70-105 [facility] Comment on above: Order Comment: Waived Testing in the ED is performed under the ED CLIA certificate #[id number]. Result Comment: [email or web address] Performed By: #### L [id number] ####[facility] HOSPITAL LAB (BEAKER)[address] [place] [address] Glucose [Mass/Vol] 145 mg/dL High 70-105 [facility] Comment on above: Order Comment: Waived Testing in the ED is performed under the ED CLIA certificate #[id number]. Result Comment: [email or web address] mon Performed By: #### L [id number] ####[facility] HOSPITAL LAB (BEAKER)[address] [place] [address] Glucose [Mass/Vol] 240 mg/dL High 70-105 [facility] Comment on above: Order Comment: Waived Testing in the ED is performed under the ED CLIA certificate #[id number]. Result Comment: [email or web address] Performed By: #### L [id number] ####[facility] HOSPITAL LAB (BEAKER)[address] [place] [address] Glucose [Mass/Vol] 188 mg/dL High 70-105 [facility] Comment on above: Order Comment: Waived Testing in the ED is performed under the ED CLIA certificate #[id number]. Result Comment: [email or web address] mon Performed By: #### L [id number] ####[facility] HOSPITAL LAB (BEAKER)[address] [place] [address] 30on 08-17-[address] [facility] CBC WITH AUTO DIFFERENTIALon 08-17-2023 Basophils (Bld) [#/Vol] 0.03 10*3/uL Normal 0.00-0.20 [facility] Comment on above: Performed By: #### [id number] ####[facility] HOSP ITAL LAB (BEAKER)[address] [place] [address] Basophils/100 WBC (Bld) 0.4 % Normal 0.0-1.0 [facility] Comment on above: Performed By: #### [id number] ####[facility] HOSP ITAL LAB (BEAKER)[address] [place] [address] Eosinophils (Bld) [#/Vol] 0.33 10*3/uL Normal 0.00-0.50 [facility] Comment on above: Performed By: #### [id number] ####[facility] HOSP ITAL LAB (BEAKER)[address] [place] [address] Eosinophils/100 WBC (Bld) 3.9 % Normal 0.0-6.0 [facility] Comment on above: Performed By: #### [id number] ####[facility] HOSP ITAL LAB (BEAKER)[address] [place] [address] Erythrocyte distribution width (RBC) [Ratio] 17.2 % High 11.5-15.0 [facility] Comment on above: Performed By: #### [id number] ####[facility] HOSP ITAL LAB (BEAKER)[address] [place] [address] ERYTHROCYTE MEAN CORPUSCULAR HEMOGLOBIN CONCENTRATION (G/DL) BY AUTOMATED 33.4 g/dL Normal 32.0-35.0 [facility] Comment on above: Performed By: #### [id number] ####[facility] HOSP ITAL LAB (BEAKER)[address] [place] [address] Hematocrit (Bld) [Volume fraction] 30.5 % Low 39.0-55.0 [facility] Comment on above: Performed By: #### [id number] ####[facility] HOSP ITAL LAB (BEAKER)[address] [place] [address] Hemoglobin (Bld) [Mass/Vol] 10.2 g/dL Low 13.0-17.0 [facility] Comment on above: Performed By: #### [id number] ####[facility] HOSP ITAL LAB (BEAKER)[address] [place] [address] Immature granulocytes (Bld) [#/Vol] 0.04 10*3/uL Normal 0.00-0.20 [facility] Comment on above: Performed By: #### [id number] ####[facility] HOSP ITAL LAB (BEAKER)[address] [place] [address] Immature granulocytes/100 WBC (Bld) 0.5 % Normal 0.0-1.0 [facility] Comment on above: Performed By: #### [id number] ####[facility] HOSP ITAL LAB (BEAKER)[address] [place] [address] Lymphocytes (Bld) [#/Vol] 0.44 10*3/uL Low 1.20-4.00 [facility] Comment on above: Performed By: #### [id number] ####[facility] HOSP ITAL LAB (BEAKER)[address] [place] [address] Lymphocytes/100 WBC (Bld) 5.2 % Low 20.0-45.0 [facility] Comment on above: Performed By: #### [id number] ####[facility] HOSP ITAL LAB (BEAKER)[address] [place] [address] MCH (RBC) [Entitic mass] 27.9 pg Normal 27.0-33.0 [facility] Comment on above: Performed By: #### [id number] ####[facility] HOSP ITAL LAB (BEAKER)[address] [place] [address] MCV (RBC) [Entitic vol] 83.3 fL Normal 82.0-98.0 [facility] Comment on above: Performed By: #### [id number] ####[facility] HOSP ITAL LAB (BEAKER)[address] [place] [address] Monocytes (Bld) [#/Vol] 0.83 10*3/uL Normal 0.10-1.00 [facility] Comment on above: Performed By: #### [id number] ####[facility] HOSP ITAL LAB (BEAKER)[address] [place] [address] Monocytes/100 WBC (Bld) 9.9 % Normal 5.0-12.0 [facility] Comment on above: Performed By: #### [id number] ####[facility] HOSP ITAL LAB (BEAKER)[address] [place] [address] Neutrophils (Bld) [#/Vol] 6.73 10*3/uL Normal 1.60-7.60 [facility] Comment on above: Performed By: #### [id number] ####[facility] HOSP ITAL LAB (BEAKER)[address] [place] [address] Neutrophils/100 WBC (Bld) 80.1 % High 40.0-72.0 [facility] Comment on above: Performed By: #### [id number] ####[facility] HOSP ITAL LAB (BEAKER)[address] [place] [address] NRBC (PER 100 WBCS) BY AUTOMATED COUNT 0.0 % Normal 0 [facility] Comment on above: Performed By: #### [id number] ####[facility] HOSP ITAL LAB (BEAKER)[address] [place] [address] PLATELETS (10*3/UL) IN BLOOD AUTOMATED COUNT 233 10*3/uL Normal 150-400 [facility] Comment on above: Performed By: #### [id number] ####[facility] HOSP ITAL LAB (BEAKER)[address] [place] [address] RBC (Bld) [#/Vol] 3.66 10*6/uL Low 4.20-5.70 [facility] Comment on above: Performed By: #### [id number] ####[facility] HOSP ITAL LAB (BEAKER)[address] [place] [address] WBC (Bld) [#/Vol] 8.40 10*3/uL Normal 4.00-10.60 [facility] Comment on above: Performed By: #### [id number] ####[facility] HOSP ITAL LAB (BEAKER)[address] [place] [address] COMPREHENSIVE METABOLIC PANE Jayden 08-17-2023 Albumin [Mass/Vol] 2.9 g/dL Low 3.5-5.7 [facility] Comment on above: Performed By: #### [id number] ####[facility] HOSPIT AL LAB (BEAKER)[address] [place] [address] ALP [Catalytic activity/Vol] 216 U/L High 34-104 [facility] Comment on above: Performed By: #### [id number] ####[facility] HOSPIT AL LAB (BEAKER)[address] [place] [address] ALT [Catalytic activity/Vol] 951 U/L High 7-52 [facility] Comment on above: Performed By: #### [id number] ####[facility] HOSPIT AL LAB (BEAKER)[address] [place] [address] Anion gap [Moles/Vol] 11 mmol/L Normal 7-20 [facility] Comment on above: Performed By: #### [id number] ####[facility] HOSPIT AL LAB (BEAKER)[address] [place] [address] AST [Catalytic activity/Vol] 312 U/L High 13-39 [facility] Comment on above: Performed By: #### [id number] ####[facility] HOSPIT AL LAB (BEAKER)[address] [place] [address] Bilirubin [Mass/Vol] 0.6 mg/dL Normal 0.3-1.0 [facility] Comment on above: Performed By: #### [id number] ####[facility] HOSPIT AL LAB (BEAKER)[address] [place] [address] Calcium [Mass/Vol] 7.8 mg/dL Low 8.6-10.3 [facility] Comment on above: Performed By: #### [id number] ####[facility] HOSPIT AL LAB (BEAKER)[address] [place] [address] Chloride [Moles/Vol] 104 mmol/L Normal 98-107 [facility] Comment on above: Performed By: #### [id number] ####[facility] HOSPIT AL LAB (BEAKER)[address] [place] [address] CO2 [Moles/Vol] 20 mmol/L Low 21-31 [facility] Comment on above: Performed By: #### [id number] ####[facility] HOSPIT AL LAB (BEAKER)[address] [place] [address] Creatinine [Mass/Vol] 1.26 mg/dL Normal 0.70-1.30 [facility] Comment on above: Performed By: #### [id number] ####[facility] HOSPIT AL LAB (BEAKER)[address] [place] [address] GLOMERULAR FILTRATION RATE ML/MIN/1.73 SQ M.PREDICTED 62.1 mL/min/1.73m*2 Normal >60.0 [facility] Comment on above: Result Comment: The [facility]???s estimated glomerular filtration rate (eGFR) will no longer include consideration of race in its calculation. The [employer]???s eGFR Task Force developed new recommendations for the estimation of the glomerular filtration rate in the [place] They recommend immediate implementation of the new equation refit without the race variable in all laboratories because the calculation does not include race. In addition to not including race in the calculation and reporting, it included diversity in its development, and has acceptable performance characteristics and potential consequences that do not disproportionately affect any one group of individuals. Performed By: #### L [id number] ####[facility] HOSPITAL LAB ([facility])[address] [place] [address] Glucose [Mass/Vol] 108 mg/dL High 70-100 [facility] Comment on above: Performed By: #### [id number] ####[facility] HOSPIT AL LAB ([facility])[address] [place] [address] Potassium [Moles/Vol] 3.7 mmol/L Normal 3.5-5.1 [facility] Comment on above: Performed By: #### [id number] ####[facility] LAB ([facility])[address] [facility] [address] Protein [Mass/Vol] 5.6 g/dL Low 6.0-8.3 [facility] Comment on above: Performed By: #### [id number] ####[facility] LAB ([facility])[address] [facility] [address] Sodium [Moles/Vol] 131 mmol/L Low 136-145 [facility] Comment on above: Performed By: #### [id number] ####[facility] LAB ([facility])[address] [place] [address] Urea nitrogen [Mass/Vol] 27 mg/dL High 7-25 [facility] Comment on above: Performed By: #### [id number] ####[facility] ([facility])[address] [place] [address] UREA NITROGEN/CREATIN INE (MASS RATIO) IN SER/PLAS 21.[address] [facility] Comment on above: Performed By: #### [id number] ####[facility] HOSPIT AL LAB ([facility])[address] [place] [address] GRAM STAINon 08-17-2023 GRAM STAIN RESULT Normal [facility] Comment on above: Result Comment: >25 Squamous Epithelial Cells Per Low Power Field<10 Polys Per Low Power FieldSpecimen contains >25 Epithelial Cells/LPF, unsuitable for culture. Please submit a new specimen Performed By: #### L [id number] ####[facility] ([facility])[address] [place] [address] MAGNESIUMon 08-17-2023 Magnesium [Mass/Vol] 2.1 mg/dL Normal 1.9-2.7 [facility] Comment on above: Performed By: #### [id number] ####[facility] ([facility])[address] [place] [address] MRSA/MSSA DNA NASALon 2023 MRSA DNA Negative Normal Negative [facility] Comment on above: Order Comment: Testing methodology is an automated qualitative in vitro diagnostic test for the directdetection and differentiation of Staphylococcus aureus (SA) DNA and methicillin-resistant Staphylococcus aureus (MRSA) DNA from nasal swabs in patients at risk for nasal colonization. The test utilizes real-time polymerase chain reaction (PCR) for the amplification of MRSA/SA DNA and fluorogenic target-specific hybridization probes for the detection of the amplified DNA. A negative result does not preclude nasal colonization. Performed By: #### L [id number] ####[facility] LAB ([facility])[address] [place] [address] MSSA DNA Negative Normal Negative [facility] Comment on above: Order Comment: Testing methodology is an automated qualitative in vitro diagnostic test for the directdetection and differentiation of Staphylococcus aureus (SA) DNA and methicillin-resistant Staphylococcus aureus (MRSA) DNA from nasal swabs in patients at risk for nasal colonization. The test utilizes real-time polymerase chain reaction (PCR) for the amplification of MRSA/SA DNA and fluorogenic target-specific hybridization probes for the detection of the amplified DNA. A negative result does not preclude nasal colonization. Performed By: #### L [id number] ####[facility] ([facility])[address] [place] [address] PHOSPHORUSon 08-17-2023 Magnesium [Mass/Vol] 2.5 mg/dL Normal 2.5-5.0 [facility] Comment on above: Performed By: #### [id number] ####[facility] ([facility])[address] [place] [address] POCT GLUCOSE METER UNSOLICIT ED RESULTSon 08-17-2023 Glucose [Mass/Vol] 179 mg/dL High 70-105 [facility] Comment on above: Order Comment: Waived Testing in the ED is performed under the ED CLIA certificate #[id number]. Result Comment: [email or web address] Performed By: #### L [id number] ####[facility] LAB ([facility])[address] [place] [address] Glucose [Mass/Vol] 170 mg/dL High 70-105 [facility] Comment on above: Order Comment: Waived Testing in the ED is performed under the ED CLIA certificate #[id number]. Result Comment: [email or web address] Performed By: #### L [id number] ####[facility] LAB ([facility])[address] [place] [address] Glucose [Mass/Vol] 209 mg/dL High 70-105 [facility] Comment on above: Order Comment: Waived Testing in the ED is performed under the ED CLIA certificate #[id number]. Result Comment: [email or web address] [email or web address] Performed By: #### L [id number] ####[facility] LAB ([facility])[address] [place] [address] Glucose [Mass/Vol] 109 mg/dL High 70-105 [facility] Comment on above: Order Comment: Waived Testing in the ED is performed under the ED CLIA certificate #[id number]. Result Comment: [email or web address] [email or web address] Performed By: #### L [id number] ####[facility] LAB ([facility])[address] [place] [address] VANCOMYCIN TIMEDon VANCOMYCIN IN SER/PLAS - TIMED 10.9 Low 20.0-40.0 [facility] Comment on above: Performed By: #### [id number] ####[facility] HOSP ITAL LAB ([facility])[address] [place] [address] 30on 08-16-[address] [facility] ANESon 08-16-[address] [facility] ARTERIAL BLOOD GAS WITH IONI ZED CALCIUMon 08-16-2023 Base excess Calc (Bld) [Moles/Vol] -0.3000 mmol/L Normal -2.0-3.0 [facility] Comment on above: Performed By: #### [id number] ####[facility] RESP IRATORY [id number] [place] [address] [facility] CALCIUM IONIZED (MMOL/L) IN BLOOD 1.16 mmol/L Normal 1.15-1.33 [facility] Comment on above: Performed By: #### [id number] ####[facility] RESP [facility] [id number] [place] [address] [facility] CO2 (Bld) [Partial pressure] 30 mm[Hg] Low 35-48 [facility] Comment on above: Performed By: #### [id number] ####[facility] RESP IRATORY [id number] [place] [address] [facility] HCO3 (Bld) [Moles/Vol] 22.3 mmol/L Normal 21.0-28.0 [facility] Comment on above: Performed By: #### [id number] ####[facility] RESP [facility] [id number] [place] [address] [facility] Oxygen (Bld) [Partial pressure] 88 mm[Hg] Normal 83-100 [facility] Comment on above: Performed By: #### [id number] ####[facility] RES[facility]ORY [id number] [place] [address] [facility] OXYGEN SATURATION (%) IN ARTERIAL BLOOD 97.5 % Normal 94.0-98.0 [facility] Comment on above: Performed By: #### [id number] ####[facility] RESP IRATORY [id number] [place] [address] [place] pH (Bld) 7.48 [pH] High 7.35-7.45 [facility] Comment on above: Performed By: #### [id number] ####[facility] RESP IRATORY [id number] [place] [address] [place] SOURCE OF OXYGEN Room Air Normal [facility] Comment on above: Performed By: #### [id number] ####[facility] RESP IRATORY [id number] [place] [address] [facility] BLOOD CULTUREon 08-16-2023 Bacteria identified Cx Nom (Bld) No growth at [address] [facility] Comment on above: Order Comment: From a different site avis n #1. Performed By: #### L [id number] ####[facility] HOSPITAL LAB (BEAKER)[address] [place] [address] CBC WITH AUTO DIFFERENTIALon 08-16-2023 Basophils (Bld) [#/Vol] 0.03 10*3/uL Normal 0.00-0.20 [facility] Comment on above: Performed By: #### [id number] ####[facility] HOSP ITAL LAB (BEAKER)[address] [place] [address] Basophils/100 WBC (Bld) 0.3 % Normal 0.0-1.0 [facility] Comment on above: Performed By: #### [id number] ####[facility] ITAL LAB (BEAKER)[address] [place] [address] Eosinophils (Bld) [#/Vol] 0.09 10*3/uL Normal 0.00-0.50 [facility] Comment on above: Performed By: #### [id number] ####[facility] ITAL LAB (BEAKER)[address] [place] [address] Eosinophils/100 WBC (Bld) 0.8 % Normal 0.0-6.0 [facility] Comment on above: Performed By: #### [id number] ####[facility] HOSP ITAL LAB (BEAKER)[address] [place] [address] Erythrocyte distribution width (RBC) [Ratio] 17.2 % High 11.5-15.0 [facility] Comment on above: Performed By: #### [id number] ####[facility] ITAL LAB (BEAKER)[address] [place] [address] ERYTHROCYTE MEAN CORPUSCULAR HEMOGLOBIN CONCENTRATION (G/DL) BY AUTOMATED 33.8 g/dL Normal 32.0-35.0 [facility] Comment on above: Performed By: #### [id number] ####[facility] ITAL LAB (BEAKER)[address] [place] [address] Hematocrit (Bld) [Volume fraction] 32.0 % Low 39.0-55.0 [facility] Comment on above: Performed By: #### [id number] ####[facility] ITAL LAB (BEAKER)[address] [place] [address] Hemoglobin (Bld) [Mass/Vol] 10.8 g/dL Low 13.0-17.0 [facility] Comment on above: Performed By: #### [id number] ####[facility] ITAL LAB (BEAKER)[address] [place] [address] Immature granulocytes (Bld) [#/Vol] 0.07 10*3/uL Normal 0.00-0.20 [facility] Comment on above: Performed By: #### [id number] ####[facility] HOSP ITAL LAB (BEAKER)[address] [place] [address] Immature granulocytes/100 WBC (Bld) 0.7 % Normal 0.0-1.0 [facility] Comment on above: Performed By: #### [id number] ####[facility] HOSP ITAL LAB (BEAKER)[address] [place] [address] Lymphocytes (Bld) [#/Vol] 0.49 10*3/uL Low 1.20-4.00 [facility] Comment on above: Performed By: #### [id number] ####[facility] HOSP ITAL LAB (BEAKER)[address] [place] [address] Lymphocytes/100 WBC (Bld) 4.6 % Low 20.0-45.0 [facility] Comment on above: Performed By: #### [id number] ####[facility] HOSP ITAL LAB (BEAKER)[address] [place] [address] MCH (RBC) [Entitic mass] 27.8 pg Normal 27.0-33.0 [facility] Comment on above: Performed By: #### [id number] ####[facility] HOSP ITAL LAB (BEAKER)[address] [place] [address] MCV (RBC) [Entitic vol] 82.3 fL Normal 82.0-98.0 [facility] Comment on above: Performed By: #### [id number] ####[facility] (BEAKER)[address] [place] [address] Monocytes (Bld) [#/Vol] 0.73 10*3/uL Normal 0.10-1.00 [facility] Comment on above: Performed By: #### [id number] ####[facility]AL [facility] (BEAKER)[address] [place] [address] Monocytes/100 WBC (Bld) 6.8 % Normal 5.0-12.0 [facility] Comment on above: Performed By: #### [id number] ####[facility] ITAL [facility] (BEAKER)[address] [place] [address] Neutrophils (Bld) [#/Vol] 9.34 10*3/uL High 1.60-7.60 [facility] Comment on above: Performed By: #### [id number] ####[facility]AL [facility] (BEAKER)[address] [place] [address] Neutrophils/100 WBC (Bld) 86.8 % High 40.0-72.0 [facility] Comment on above: Performed By: #### [id number] ####[facility]AL [facility] (BEAKER)[address] [place] [address] NRBC (PER 100 WBCS) BY AUTOMATED COUNT 0.0 % Normal 0 [facility] Comment on above: Performed By: #### [id number] ####[facility] ITAL [facility] (BEAKER)[address] [place] [address] PLATELETS (10*3/UL) IN BLOOD AUTOMATED COUNT 233 10*3/uL Normal 150-400 [facility] Comment on above: Performed By: #### [id number] ####[facility] ITAL [facility] (BEAKER)[address] [place] [address] RBC (Bld) [#/Vol] 3.89 10*6/uL Low 4.20-5.70 [facility] Comment on above: Performed By: #### [id number] ####[facility] ITAL [facility] (BEAKER)[address] [place] [address] WBC (Bld) [#/Vol] 10.75 10*3/uL High 4.00-10.60 [facility] Comment on above: Performed By: #### [id number] ####[facility] HOSP ITAL LAB (BEAKER)[address] [place] [address] COMPREHENSIVE METABOLIC PANE Jayden 08-16-2023 Albumin [Mass/Vol] 3.0 g/dL Low 3.5-5.7 [facility] Comment on above: Performed By: #### [id number] ####[facility] HOSPIT AL LAB (BEAKER)[address] [place] [address] ALP [Catalytic activity/Vol] 302 U/L High 34-104 [facility] Comment on above: Performed By: #### [id number] ####[facility] HOSPIT AL LAB (BEAKER)[address] [place] [address] ALT [Catalytic activity/Vol] 1399 U/L High 7-52 [facility] Comment on above: Performed By: #### [id number] ####[facility] HOSPIT AL LAB (BEAKER)[address] [place] [address] Anion gap [Moles/Vol] 12 mmol/L Normal 7-20 [facility] Comment on above: Performed By: #### [id number] ####[facility] HOSPIT AL LAB (BEAKER)[address] [place] [address] AST [Catalytic activity/Vol] 996 U/L High 13-39 [facility] Comment on above: Performed By: #### [id number] ####[facility] HOSPIT AL LAB (BEAKER)[address] [place] [address] Bilirubin [Mass/Vol] 0.7 mg/dL Normal 0.3-1.0 [facility] Comment on above: Performed By: #### [id number] ####[facility] HOSPIT AL LAB (BEAKER)[address] [place] [address] Calcium [Mass/Vol] 8.1 mg/dL Low 8.6-10.3 [facility] Comment on above: Performed By: #### [id number] ####[facility] HOSPIT AL LAB (BEAKER)[address] [place] [address] Chloride [Moles/Vol] 98 mmol/L Normal 98-107 [facility] Comment on above: Performed By: #### [id number] ####[facility] AL LAB (BEAKER)[address] [place] [address] CO2 [Moles/Vol] 23 mmol/L Normal 21-31 [facility] Comment on above: Performed By: #### [id number] ####[facility] AL LAB (BEAKER)[address] [place] [address] Creatinine [Mass/Vol] 1.44 mg/dL High 0.70-1.30 [facility] Comment on above: Performed By: #### [id number] ####[facility] AL LAB (BEAKER)[address] [place] [address] GLOMERULAR FILTRATION RATE ML/MIN/1.73 SQ M.PREDICTED 52.9 mL/min/1.73m*2 Low >60.0 [facility] Comment on above: Result Comment: The [facility]???s estimated glomerular filtration rate (eGFR) will no longer include consideration of race in its calculation. The National Kidney Foundation???s eGFR Task Force developed new recommendations for the estimation of the glomerular filtration rate in the [place] They recommend immediate implementation of the new equation refit without the race variable in all laboratories because the calculation does not include race. In addition to not including race in the calculation and reporting, it included diversity in its development, and has acceptable performance characteristics and potential consequences that do not disproportionately affect any one group of individuals. Performed By: #### L [id number] ####[facility] HOSPITAL LAB (BEAKER)[address] [place] [address] Glucose [Mass/Vol] 145 mg/dL High 70-100 [facility] Comment on above: Performed By: #### [id number] ####[facility] HOSPIT AL LAB (BEAKER)[address] [place] [address] Potassium [Moles/Vol] 3.9 mmol/L Normal 3.5-5.1 [facility] Comment on above: Performed By: #### [id number] ####[facility] HOSPIT AL LAB (BEAKER)[address] [place] [address] Protein [Mass/Vol] 5.9 g/dL Low 6.0-8.3 [facility] Comment on above: Performed By: #### [id number] ####[facility] HOSPIT AL LAB (BEAKER)[address] [place] [address] Sodium [Moles/Vol] 129 mmol/L Low 136-145 [facility] Comment on above: Performed By: #### [id number] ####[facility]OSPIT AL LAB (BEAKER)[address] [place] [address] Urea nitrogen [Mass/Vol] 34 mg/dL High 7-25 [facility] Comment on above: Performed By: #### [id number] ####[facility] HOSPIT AL LAB (BEAKER)[address] [place] [address] UREA NITROGEN/CREATIN INE (MASS RATIO) IN SER/PLAS 23.[address] [facility] Comment on above: Performed By: #### [id number] ####[facility] HOSPIT AL LAB (BEAKER)[address] [place] [address] CORTISOLon 08-16-2023 CORTISOL (UG/DL) IN SER/PLAS 21.6 ug/dL Normal 6-23 [facility] Comment on above: Performed By: #### [id number] ####[facility] HOSPIT AL LAB (BEAKER)[address] [place] [address] HPon 08-16-[address] [facility] LACTIC ACID WITH 4 HOUR REFL EXon 08-16-2023 LACTATE (MMOL/L) IN SER/PLAS 0.6 mmol/L Normal 0.5-2.2 [facility] Comment on above: Performed By: #### [id number] ####[facility] HOS PITAL LAB ([place]uo)[address] [place] [address] LEGIONELLA ANTIGEN, URINEon 08-16-2023 LEGIONELLA AG, UR Negative Normal NEG [facility] Comment on above: Result Comment: L. pneumophila serogroup 1 antigen not detected.A negative result does not exclude infection with Leginella pnemophila serogroup 1 nor does it rule out other microbial-caused respiratory infections of disease caused by other serogroups of Legionella pneumophila.Test Performed by [employer] [id number] [place] [address] - Released 08/17/2023 08:21 Performed By: #### L [id number] ####[facility] [id number] [place] [address] MAGNESIUMon 08-16-2023 Magnesium [Mass/Vol] 2.2 mg/dL Normal 1.9-2.7 [facility] Comment on above: Performed By: #### [id number] ####[facility] HOSPI BRONWYN LAB ([place]uo)[address] [place] [address] PHOSPHORUSon 08-16-2023 Magnesium [Mass/Vol] 2.7 mg/dL Normal 2.5-5.0 [facility] Comment on above: Performed By: #### [id number] ####[facility] ([facility] [place] [address] POCT GLUCOSE METER UNSOLICIT ED RESULTSon 08-16-2023 Glucose [Mass/Vol] 171 mg/dL High 70-105 [facility] Comment on above: Order Comment: Waived Testing in the ED is performed under the ED CLIA certificate #[id number]. Result Comment: anau Performed By: #### L [id number] ####[facility] HOSPITAL LAB ([place]uo)[address] [place] [address] Glucose [Mass/Vol] 114 mg/dL High 70-105 [facility] Comment on above: Order Comment: Waived Testing in the ED is performed under the ED CLIA certificate #[id number]. Result Comment: [email or web address] [email or web address] Performed By: #### L [id number] ####[facility] HOSPITAL LAB (BEAKER)[address] [place] [address] Glucose [Mass/Vol] 137 mg/dL High 70-105 [facility] Comment on above: Order Comment: Waived Testing in the ED is performed under the ED CLIA certificate #[id number]. Result Comment: [email or web address] [email or web address] Performed By: #### L [id number] ####[facility] LAB (BEAKER)[address] [place] [address] Glucose [Mass/Vol] 215 mg/dL High 70-105 [facility] Comment on above: Order Comment: Waived Testing in the ED is performed under the ED CLIA certificate #[id number]. Result Comment: anau Performed By: #### L [id number] ####[facility] LAB (BEAKER)[address] [place] [address] PROCALCITONIN TESTon 024 PROCALCITONIN IN BLOOD 0.88 ng/mL High 0.00-0.10 [facility] Comment on above: Result Comment: Suspected Lower Respirat ory Tract Infection:0.1-0.25 ng/mL - Low likelihood for bacterial infection;Antibiotics discouraged.*>0.25 ng/mL - Increased likelihood bacterial infection;Antibiotics encouraged. Suspected Sepsis: Strongly consider initiating antibiotics in all unstable patients.0.1-0.5 ng/mL - Low likelihood for sepsis; Antibiotics discouraged.*>0.5 ng/mL - Increased likelihood sepsis; Antibiotics encouraged.>2.0 ng/mL - High risk of sepsis/septic shock; Antibiotics strongly encouraged. *Recommend retesting PCT within 6-12 hours if clinically indicated and initial PCT<0.5ng/mL Performed By: #### L [id number] ####[facility] HOSPITAL LAB (BEAKER)[address] [place] [address] STREP PNEUMONIAE ANTIGEN, UR INEon 08-16-2023 STREPTOCOCCUS PNEUMONIAE AG PRESENCE IN URINE Negative Normal Negative [facility] Comment on above: Performed By: #### [id number] ####[facility] HOSP ITAL LAB (BEAKER)[address] [place] [address] URINALYSIS MICROSCOPIC WITH REFLEX CULTUREon 08-16-2023 CASTS IN URINE Normal [facility] Comment on above: Performed By: #### [id number] ####[facility] ITAL LAB (BEAKER)[address] [place] [address] CRYSTALS IN URINE Normal [facility] Comment on above: Performed By: #### [id number] ####[facility] ITAL LAB (BEAKER)[address] [place] [address] OTHER MICROSCOPIC ELEMENTS Normal [facility] Comment on above: Performed By: #### [id number] ####[facility] ITAL LAB (BEAKER)[address] [place] [address] RBC (#/HPF) IN URINE SEDIMENT 6-[address] [facility] Comment on above: Performed By: #### [id number] ####[facility] ITAL LAB (BEAKER)[address] [place] [address] SQUAMOUS EPITHELIAL CELLS (#/HPF) IN URINE SEDIMENT Occasional Normal None Seen, Occasional [facility] Comment on above: Performed By: #### [id number] ####[facility] HOSP ITAL LAB (BEAKER)[address] [place] [address] WBC (LEUKOCYTE) (#/HPF) IN URINE SEDIMENT 3-[address] [facility] Comment on above: Performed By: #### [id number] ####[facility] HOSP ITAL LAB (BEAKER)[address] [place] [address] URINALYSIS WITH REFLEX CULTU REon 08-16-2023 BILIRUBIN, TOTAL PRESENCE IN URINE Negative Normal Negative [facility] Comment on above: Performed By: #### [id number] ####[facility] HOSP ITAL LAB (BEAKER)[address] [place] [address] Clarity (U) Clear Normal Clear [facility] Comment on above: Performed By: #### [id number] ####[facility] HOSP ITAL LAB (BEAKER)[address] [place] [address] Color (U) Yellow Normal Yellow [facility] Comment on above: Performed By: #### [id number] ####[facility] HOSP ITAL LAB (BEAKER)[address] [place] [address] Glucose (U) [Mass/Vol] mg/dL Abnormal Negative [facility] Comment on above: Performed By: #### [id number] ####[facility] HOSP ITAL LAB (BEAKER)[address] [place] [address] HEMOGLOBIN PRESENCE IN URINE Small Abnormal Negative [facility] Comment on above: Performed By: #### [id number] ####[facility] HOSP ITAL LAB (BEAKER)[address] [place] [address] Ketones Ql (U) 20 mg/dL Abnormal Negative [facility] Comment on above: Performed By: #### [id number] ####[facility] HOSP ITAL LAB (BEAKER)[address] [place] [address] LEUKOCYTE ESTERASE PRESENCE IN URINE BY TEST STRIP Negative Normal Negative [facility] Comment on above: Performed By: #### [id number] ####[facility] HOSP ITAL LAB (BEAKER)[address] [place] [address] NITRITE PRESENCE IN URINE Negative Normal Negative [facility] Comment on above: Performed By: #### [id number] ####[facility] HOSP ITAL LAB (BEAKER)[address] [place] [address] pH (U) 7.0 [pH] Normal 5.0-8.0 [facility] Comment on above: Performed By: #### [id number] ####[facility] HOSP ITAL LAB (BEAKER)[address] [place] [address] Protein (U) [Mass/Vol] 100 mg/dL Abnormal Negative [facility] Comment on above: Performed By: #### [id number] ####[facility] HOSP ITAL LAB (BEAKER)[address] [place] [address] Specific gravity (U) [Rel density] 1.013 Low 1.015-1.020 [facility] Comment on above: Performed By: #### [id number] ####[facility] HOSP ITAL LAB (BEAKER)[address] [place] [address] UROBILINOGEN (EU/DL) IN URINE 2.0 EU/dL Abnormal Negative [facility] Comment on above: Performed By: #### [id number] ####[facility] HOSP ITAL LAB (BEAKER)[address] [place] [address] 30on 08-15-[address] [facility] BASIC METABOLIC PANELon 07-29 Anion gap [Moles/Vol] 17 mmol/L Normal 7-20 [facility] Comment on above: Performed By: #### [id number] ####[facility] HOSPIT AL LAB (BEAKER)[address] [place] [address] Calcium [Mass/Vol] 8.7 mg/dL Normal 8.6-10.3 [facility] Comment on above: Performed By: #### [id number] ####[facility] HOSPIT AL LAB (BEAKER)[address] [place] [address] Chloride [Moles/Vol] 95 mmol/L Low 98-107 [facility] Comment on above: Performed By: #### [id number] ####[facility] HOSPIT AL LAB (BEAKER)[address] [place] [address] CO2 [Moles/Vol] 19 mmol/L Low 21-31 [facility] Comment on above: Performed By: #### [id number] ####[facility] HOSPIT AL LAB (BEAKER)[address] [place] [address] Creatinine [Mass/Vol] 1.07 mg/dL Normal 0.70-1.30 [facility] Comment on above: Performed By: #### [id number] ####[facility] [place] [address] GLOMERULAR FILTRATION RATE ML/MIN/1.73 SQ M.PREDICTED 75.6 mL/min/1.73m*2 Normal >60.0 [facility] Comment on above: Result Comment: The [facility]???s estimated glomerular filtration rate (eGFR) will no longer include consideration of race in its calculation. The National Kidney Foundation???s eGFR Task Force developed new recommendations for the estimation of the glomerular filtration rate in the [place] They recommend immediate implementation of the new equation refit without the race variable in all laboratories because the calculation does not include race. In addition to not including race in the calculation and reporting, it included diversity in its development, and has acceptable performance characteristics and potential consequences that do not disproportionately affect any one group of individuals. Performed By: #### L [id number] ####[facility] HOSPITAL LAB ([facility])[address] [facility] [address] Glucose [Mass/Vol] 262 mg/dL High 70-100 [facility] Comment on above: Performed By: #### [id number] ####[facility] AL LAB ([facility] [place] [address] Potassium [Moles/Vol] 4.1 mmol/L Normal 3.5-5.1 [facility] Comment on above: Performed By: #### [id number] ####[facility] AL LAB ([facility] [place] [address] Sodium [Moles/Vol] 127 mmol/L Low 136-145 [facility] Comment on above: Performed By: #### [id number] ####[facility] [place] [address] Urea nitrogen [Mass/Vol] 30 mg/dL High 7-25 [facility] Comment on above: Performed By: #### [id number] ####[facility] HOSPIT AL LAB (BEAKER)[address] [facility] [address] UREA NITROGEN/CREATIN INE (MASS RATIO) IN SER/PLAS 28.[address] [facility] Comment on above: Performed By: #### [id number] ####[facility] HOSPIT AL LAB (BEAKER)[address] [place] [address] CBC WITH AUTO DIFFERENTIALon 08-15-2023 Basophils (Bld) [#/Vol] 0.01 10*3/uL Normal 0.00-0.20 [facility] Comment on above: Performed By: #### [id number] ####[facility] HOSP ITAL LAB (BEAKER)[address] [place] [address] Basophils/100 WBC (Bld) 0.1 % Normal 0.0-1.0 [facility] Comment on above: Performed By: #### [id number] ####[facility] HOSP ITAL LAB (BEAKER)[address] [place] [address] Eosinophils (Bld) [#/Vol] 0.01 10*3/uL Normal 0.00-0.50 [facility] Comment on above: Performed By: #### [id number] ####[facility] HOSP ITAL LAB (BEAKER)[address] [place] [address] Eosinophils/100 WBC (Bld) 0.1 % Normal 0.0-6.0 [facility] Comment on above: Performed By: #### [id number] ####[facility] HOSP ITAL LAB (BEAKER)[address] [place] [address] Erythrocyte distribution width (RBC) [Ratio] 17.2 % High 11.5-15.0 [facility] Comment on above: Performed By: #### [id number] ####[facility] HOSP ITAL LAB (BEAKER)[address] [place] [address] ERYTHROCYTE MEAN CORPUSCULAR HEMOGLOBIN CONCENTRATION (G/DL) BY AUTOMATED 31.9 g/dL Low 32.0-35.0 [facility] Comment on above: Performed By: #### [id number] ####[facility] HOSP ITAL LAB (BEAKER)[address] [place] [address] Hematocrit (Bld) [Volume fraction] 31.0 % Low 39.0-55.0 [facility] Comment on above: Performed By: #### [id number] ####[facility] HOSP ITAL LAB (BEAKER)[address] [place] [address] Hemoglobin (Bld) [Mass/Vol] 9.9 g/dL Low 13.0-17.0 [facility] Comment on above: Performed By: #### [id number] ####[facility] HOSP ITAL LAB (BEAKER)[address] [place] [address] Immature granulocytes (Bld) [#/Vol] 0.15 10*3/uL Normal 0.00-0.20 [facility] Comment on above: Performed By: #### [id number] ####[facility] HOSP ITAL LAB (BEAKER)[address] [place] [address] Immature granulocytes/100 WBC (Bld) 1.6 % High 0.0-1.0 [facility] Comment on above: Performed By: #### [id number] ####[facility] HOSP ITAL LAB (BEAKER)[address] [place] [address] Lymphocytes (Bld) [#/Vol] 0.30 10*3/uL Low 1.20-4.00 [facility] Comment on above: Performed By: #### [id number] ####[facility] HOSP ITAL LAB (BEAKER)[address] [place] [address] Lymphocytes/100 WBC (Bld) 3.2 % Low 20.0-45.0 [facility] Comment on above: Performed By: #### [id number] ####[facility] HOSP ITAL LAB (BEAKER)[address] [place] [address] MCH (RBC) [Entitic mass] 28.0 pg Normal 27.0-33.0 [facility] Comment on above: Performed By: #### [id number] ####[facility] HOSP ITAL LAB (BEAKER)[address] [place] [address] MCV (RBC) [Entitic vol] 87.6 fL Normal 82.0-98.0 [facility] Comment on above: Performed By: #### [id number] ####[facility] HOSP ITAL LAB (BEAKER)[address] [place] [address] Monocytes (Bld) [#/Vol] 0.68 10*3/uL Normal 0.10-1.00 [facility] Comment on above: Performed By: #### [id number] ####[facility] HOSP ITAL LAB (BEAKER)[address] [place] [address] Monocytes/100 WBC (Bld) 7.4 % Normal 5.0-12.0 [facility] Comment on above: Performed By: #### [id number] ####[facility] HOSP ITAL LAB (BEAKER)[address] [place] [address] Neutrophils (Bld) [#/Vol] 8.09 10*3/uL High 1.60-7.60 [facility] Comment on above: Performed By: #### [id number] ####[facility] HOSP ITAL LAB (BEAKER)[address] [place] [address] Neutrophils/100 WBC (Bld) 87.6 % High 40.0-72.0 [facility] Comment on above: Performed By: #### [id number] ####[facility] HOSP ITAL LAB (BEAKER)[address] [place] [address] NRBC (PER 100 WBCS) BY AUTOMATED COUNT 0.3 % High 0 [facility] Comment on above: Performed By: #### [id number] ####[facility] HOSP ITAL LAB (BEAKER)[address] [place] [address] PLATELETS (10*3/UL) IN BLOOD AUTOMATED COUNT 179 10*3/uL Normal 150-400 [facility] Comment on above: Performed By: #### [id number] ####[facility] HOSP ITAL LAB (BEAKER)[address] [place] [address] RBC (Bld) [#/Vol] 3.54 10*6/uL Low 4.20-5.70 [facility] Comment on above: Performed By: #### [id number] ####[facility] HOSP ITAL LAB (BEAKER)[address] [place] [address] WBC (Bld) [#/Vol] 9.24 10*3/uL Normal 4.00-10.60 [facility] Comment on above: Performed By: #### [id number] ####[facility] HOSP ITAL LAB (BEAKER)[address] [place] [address] Basophils (Bld) [#/Vol] 0.03 10*3/uL Normal 0.00-0.20 [facility] Comment on above: Performed By: #### [id number] ####[facility] HOSP ITAL LAB (BEAKER)[address] [place] [address] Basophils/100 WBC (Bld) 0.3 % Normal 0.0-1.0 [facility] Comment on above: Performed By: #### [id number] ####[facility] HOSP ITAL LAB (BEAKER)[address] [place] [address] Eosinophils (Bld) [#/Vol] 0.05 10*3/uL Normal 0.00-0.50 [facility] Comment on above: Performed By: #### [id number] ####[facility] HOSP ITAL LAB (BEAKER)[address] [place] [address] Eosinophils/100 WBC (Bld) 0.5 % Normal 0.0-6.0 [facility] Comment on above: Performed By: #### [id number] ####[facility] HOSP ITAL LAB (BEAKER)[address] [place] [address] Erythrocyte distribution width (RBC) [Ratio] 17.0 % High 11.5-15.0 [facility] Comment on above: Performed By: #### [id number] ####[facility] HOSP ITAL LAB (BEAKER)[address] [place] [address] ERYTHROCYTE MEAN CORPUSCULAR HEMOGLOBIN CONCENTRATION (G/DL) BY AUTOMATED 32.9 g/dL Normal 32.0-35.0 [facility] Comment on above: Performed By: #### [id number] ####[facility] HOSP ITAL LAB (BEAKER)[address] [place] [address] Hematocrit (Bld) [Volume fraction] 35.6 % Low 39.0-55.0 [facility] Comment on above: Performed By: #### [id number] ####[facility] HOSP ITAL LAB (BEAKER)[address] [place] [address] Hemoglobin (Bld) [Mass/Vol] 11.7 g/dL Low 13.0-17.0 [facility] Comment on above: Performed By: #### [id number] ####[facility] ITAL LAB (BEAKER)[address] [place] [address] Immature granulocytes (Bld) [#/Vol] 0.07 10*3/uL Normal 0.00-0.20 [facility] Comment on above: Performed By: #### [id number] ####[facility] ITAL LAB (BEAKER)[address] [place] [address] Immature granulocytes/100 WBC (Bld) 0.6 % Normal 0.0-1.0 [facility] Comment on above: Performed By: #### [id number] ####[facility] ITAL LAB (BEAKER)[address] [place] [address] Lymphocytes (Bld) [#/Vol] 0.38 10*3/uL Low 1.20-4.00 [facility] Comment on above: Performed By: #### [id number] ####[facility] ITAL LAB (BEAKER)[address] [place] [address] Lymphocytes/100 WBC (Bld) 3.4 % Low 20.0-45.0 [facility] Comment on above: Performed By: #### [id number] ####[facility] ITAL LAB (BEAKER)[address] [place] [address] MCH (RBC) [Entitic mass] 27.7 pg Normal 27.0-33.0 [facility] Comment on above: Performed By: #### [id number] ####[facility] ITAL LAB (BEAKER)[address] [place] [address] MCV (RBC) [Entitic vol] 84.4 fL Normal 82.0-98.0 [facility] Comment on above: Performed By: #### [id number] ####[facility] HOS[facility] ITAL LAB (BEAKER)[address] [place] [address] Monocytes (Bld) [#/Vol] 0.73 10*3/uL Normal 0.10-1.00 [facility] Comment on above: Performed By: #### [id number] ####[facility] ITAL [facility] (BEAKER)[address] [place] [address] Monocytes/100 WBC (Bld) 6.6 % Normal 5.0-12.0 [facility] Comment on above: Performed By: #### [id number] ####[facility] ITAL [facility] (BEAKER)[address] [place] [address] Neutrophils (Bld) [#/Vol] 9.82 10*3/uL High 1.60-7.60 [facility] Comment on above: Performed By: #### [id number] ####[facility] ITAL LAB (BEAKER)[address] [place] [address] Neutrophils/100 WBC (Bld) 88.6 % High 40.0-72.0 [facility] Comment on above: Performed By: #### [id number] ####[facility] ITAL LAB (BEAKER)[address] [place] [address] NRBC (PER 100 WBCS) BY AUTOMATED COUNT 0.0 % Normal 0 [facility] Comment on above: Performed By: #### [id number] ####[facility] ITAL LAB (BEAKER)[address] [place] [address] PLATELETS (10*3/UL) IN BLOOD AUTOMATED COUNT 232 10*3/uL Normal 150-400 [facility] Comment on above: Performed By: #### [id number] ####[facility] ITAL LAB (BEAKER)[address] [place] [address] RBC (Bld) [#/Vol] 4.22 10*6/uL Normal 4.20-5.70 [facility] Comment on above: Performed By: #### [id number] ####[facility] ITAL LAB (BEAKER)[address] [place] [address] WBC (Bld) [#/Vol] 11.08 10*3/uL High 4.00-10.60 [facility] Comment on above: Performed By: #### [id number] ####[facility] ITAL LAB (BEAKER)[address] [place] [address] COMPREHENSIVE METABOLIC PANE Jayden 08-15-2023 Albumin [Mass/Vol] 3.2 g/dL Low 3.5-5.7 [facility] Comment on above: Performed By: #### [id number] ####[facility] AL LAB (BEAKER)[address] [place] [id number] ALP [Catalytic activity/Vol] 303 U/L High 34-104 [facility] Comment on above: Performed By: #### [id number] ####[facility] (BEAKER)[address] [place] [address] ALT [Catalytic activity/Vol] 1466 U/L High 7-52 [facility] Comment on above: Performed By: #### [id number] ####[facility] (BEAKER)[address] [place] [address] Anion gap [Moles/Vol] 21 mmol/L High 7-20 [facility] Comment on above: Performed By: #### [id number] ####[facility] (BEAKER)[address] [place] [address] AST [Catalytic activity/Vol] 1141 U/L High 13-39 [facility] Comment on above: Performed By: #### [id number] ####[facility] (BEAKER)[address] [place] [address] Bilirubin [Mass/Vol] 0.9 mg/dL Normal 0.3-1.0 [facility] Comment on above: Performed By: #### [id number] ####[facility] (BEAKER)[address] [place] [address] Calcium [Mass/Vol] 8.0 mg/dL Low 8.6-10.3 [facility] Comment on above: Performed By: #### [id number] ####[facility] ([facility])[address] [place] [address] Chloride [Moles/Vol] 93 mmol/L Low 98-107 [facility] Comment on above: Performed By: #### [id number] ####[facility] ([facility])[address] [place] [address] CO2 [Moles/Vol] 17 mmol/L Low 21-31 [facility] Comment on above: Performed By: #### [id number] ####[facility] ([facility])[address] [place] [address] Creatinine [Mass/Vol] 1.52 mg/dL High 0.70-1.30 [facility] Comment on above: Performed By: #### [id number] ####[facility] ([facility])[address] [place] [address] GLOMERULAR FILTRATION RATE ML/MIN/1.73 SQ M.PREDICTED 49.6 mL/min/1.73m*2 Low >[address].0 [facility] Comment on above: Result Comment: The [facility]???s estimated glomerular filtration rate (eGFR) will no longer include consideration of race in its calculation. The National Kidney Foundation???s eGFR Task Force developed new recommendations for the estimation of the glomerular filtration rate in the [place] They recommend immediate implementation of the new equation refit without the race variable in all laboratories because the calculation does not include race. In addition to not including race in the calculation and reporting, it included diversity in its development, and has acceptable performance characteristics and potential consequences that do not disproportionately affect any one group of individuals. Performed By: #### L [id number] ####[facility] ([facility])[address] [place] [address] Glucose [Mass/Vol] 327 mg/dL High 70-100 [facility] Comment on above: Performed By: #### [id number] ####[facility] (BEAKER)[address] [place] [address] Potassium [Moles/Vol] 4.6 mmol/L Normal 3.5-5.1 [facility] Comment on above: Performed By: #### [id number] ####[facility] (BEAKER)[address] [place] [address] Protein [Mass/Vol] 6.0 g/dL Normal 6.0-8.3 [facility] Comment on above: Performed By: #### [id number] ####[facility] (BEAKER)[address] [place] [address] Sodium [Moles/Vol] 126 mmol/L Low 136-145 [facility] Comment on above: Performed By: #### [id number] ####[facility] (BEAKER)[address] [place] [address] Urea nitrogen [Mass/Vol] 35 mg/dL High 7-25 [facility] Comment on above: Performed By: #### [id number] ####[facility] (BEAKER)[address] [place] [address] UREA NITROGEN/CREATIN INE (MASS RATIO) IN SER/PLAS 23.[address] [facility] Comment on above: Performed By: #### [id number] ####[facility] (BE[facility]ER)[address] [place] [address] HPon 08-15-[address] [facility] MAGNESIUMon 08-15-2023 Magnesium [Mass/Vol] 2.3 mg/dL Normal 1.9-2.7 [facility] Comment on above: Performed By: #### [id number] ####[facility] (BEAKER)[address] [place] [address] Magnesium [Mass/Vol] 2.1 mg/dL Normal 1.9-2.7 [facility] Comment on above: Performed By: #### [id number] ####[facility] ([facility]AKER)[address] [place] [address] PHOSPHORUSon 08-15-2023 Magnesium [Mass/Vol] 4.0 mg/dL Normal 2.5-5.0 [facility] Comment on above: Performed By: #### [id number] ####[facility] ([facility])[address] [place] [address] POCT GLUCOSE METER UNSOLICIT ED RESULTSon 08-15-2023 Glucose [Mass/Vol] 298 mg/dL High 70-105 [facility] Comment on above: Order Comment: Waived Testing in the ED is performed under the ED CLIA certificate #[id number]. Result Comment: [email or web address] Performed By: #### L [id number] ####[facility] (BEAKER)[address] [place] [address] Glucose [Mass/Vol] 367 mg/dL High 70-105 [facility] Comment on above: Order Comment: Waived Testing in the ED is performed under the ED CLIA certificate #[id number]. Result Comment: [email or web address] Performed By: #### L [id number] ####[facility] ([facility] [place] [address] Glucose [Mass/Vol] 264 mg/dL High 70-105 [facility] Comment on above: Order Comment: Waived Testing in the ED is performed under the ED CLIA certificate #[id number]. Result Comment: [email or web address] Performed By: #### L [id number] ####[facility] (BEAKER)[address] [place] [address] 30on 08-14-[address] [facility] BASIC METABOLIC PANELon 07-29 Anion gap [Moles/Vol] 16 mmol/L Normal 7-20 [facility] Comment on above: Performed By: #### [id number] ####[facility] (BEAKER)[address] [place] [address] Calcium [Mass/Vol] 8.8 mg/dL Normal 8.6-10.3 [facility] Comment on above: Performed By: #### [id number] ####[facility] (BEAKER)[address] [place] [address] Chloride [Moles/Vol] 98 mmol/L Normal 98-107 [facility] Comment on above: Performed By: #### [id number] ####[facility] LAB (BEAKER)[address] [place] [address] CO2 [Moles/Vol] 21 mmol/L Normal 21-31 [facility] Comment on above: Performed By: #### [id number] ####[facility] (BEAKER)[address] [place] [address] Creatinine [Mass/Vol] 1.03 mg/dL Normal 0.70-1.30 [facility] Comment on above: Performed By: #### [id number] ####[facility] LAB ([facility])[address] [place] [address] GLOMERULAR FILTRATION RATE ML/MIN/1.73 SQ M.PREDICTED 79.1 mL/min/1.73m*2 Normal >60.0 [facility] Comment on above: Result Comment: The [facility]???s estimated glomerular filtration rate (eGFR) will no longer include consideration of race in its calculation. The National Kidney Foundation???s eGFR Task Force developed new recommendations for the estimation of the glomerular filtration rate in the [place] They recommend immediate implementation of the new equation refit without the race variable in all laboratories because the calculation does not include race. In addition to not including race in the calculation and reporting, it included diversity in its development, and has acceptable performance characteristics and potential consequences that do not disproportionately affect any one group of individuals. Performed By: #### L [id number] ####[facility] (BEAKER)[address] [place] [address] Glucose [Mass/Vol] 118 mg/dL High 70-100 [facility] Comment on above: Performed By: #### [id number] ####[facility] (BE[facility]ER)[address] [place] [address] Potassium [Moles/Vol] 3.7 mmol/L Normal 3.5-5.1 [facility] Comment on above: Performed By: #### [id number] ####[facility] LAB (BEAKER)[address] [place] [address] Sodium [Moles/Vol] 131 mmol/L Low 136-145 [facility] Comment on above: Performed By: #### [id number] ####[facility] (BEAKER)[address] [place] [address] Urea nitrogen [Mass/Vol] 39 mg/dL High 7-25 [facility] Comment on above: Performed By: #### [id number] ####[facility] (BEAKER)[address] [place] [address] UREA NITROGEN/CREATIN INE (MASS RATIO) IN SER/PLAS 37.[address] [facility] Comment on above: Performed By: #### [id number] ####[facility] (BEAKER)[address] [place] [address] CBC WITH AUTO DIFFERENTIALon 08-14-2023 Basophils (Bld) [#/Vol] 0.03 10*3/uL Normal 0.00-0.20 [facility] Comment on above: Performed By: #### [id number] ####[facility] ITAL LAB (BEAKER)[address] [place] [address] Basophils/100 WBC (Bld) 0.3 % Normal 0.0-1.0 [facility] Comment on above: Performed By: #### [id number] ####[facility] ITAL LAB (BEAKER)[address] [place] [address] Eosinophils (Bld) [#/Vol] 0.06 10*3/uL Normal 0.00-0.50 [facility] Comment on above: Performed By: #### [id number] ####[facility] ITAL LAB (BEAKER)[address] [place] [address] Eosinophils/100 WBC (Bld) 0.6 % Normal 0.0-6.0 [facility] Comment on above: Performed By: #### [id number] ####[facility] ITAL LAB (BEAKER)[address] [place] [address] Erythrocyte distribution width (RBC) [Ratio] 16.9 % High 11.5-15.0 [facility] Comment on above: Performed By: #### [id number] ####[facility] ITAL LAB (BEAKER)[address] [place] [address] ERYTHROCYTE MEAN CORPUSCULAR HEMOGLOBIN CONCENTRATION (G/DL) BY AUTOMATED 33.6 g/dL Normal 32.0-35.0 [facility] Comment on above: Performed By: #### [id number] ####[facility] ITAL LAB (BEAKER)[address] [place] [address] Hematocrit (Bld) [Volume fraction] 36.6 % Low 39.0-55.0 [facility] Comment on above: Performed By: #### [id number] ####[facility] ITAL LAB (BEAKER)[address] [place] [address] Hemoglobin (Bld) [Mass/Vol] 12.3 g/dL Low 13.0-17.0 [facility] Comment on above: Performed By: #### [id number] ####[facility] ITAL LAB (BEAKER)[address] [place] [address] Immature granulocytes (Bld) [#/Vol] 0.04 10*3/uL Normal 0.00-0.20 [facility] Comment on above: Performed By: #### [id number] ####[facility] ITAL LAB (BEAKER)[address] [place] [address] Immature granulocytes/100 WBC (Bld) 0.4 % Normal 0.0-1.0 [facility] Comment on above: Performed By: #### [id number] ####[facility] ITAL LAB (BEAKER)[address] [place] [address] Lymphocytes (Bld) [#/Vol] 0.47 10*3/uL Low 1.20-4.00 [facility] Comment on above: Performed By: #### [id number] ####[facility] ITAL LAB (BEAKER)[address] [place] [address] Lymphocytes/100 WBC (Bld) 4.7 % Low 20.0-45.0 [facility] Comment on above: Performed By: #### [id number] ####[facility] ITAL LAB (BEAKER)[address] [place] [address] MCH (RBC) [Entitic mass] 27.8 pg Normal 27.0-33.0 [facility] Comment on above: Performed By: #### [id number] ####[facility] ITAL LAB (BEAKER)[address] [place] [address] MCV (RBC) [Entitic vol] 82.8 fL Normal 82.0-98.0 [facility] Comment on above: Performed By: #### [id number] ####[facility]AL LAB (BEAKER)[address] [place] [address] Monocytes (Bld) [#/Vol] 0.66 10*3/uL Normal 0.10-1.00 [facility] Comment on above: Performed By: #### [id number] ####[facility] ITAL LAB (BEAKER)[address] [place] [address] Monocytes/100 WBC (Bld) 6.7 % Normal 5.0-12.0 [facility] Comment on above: Performed By: #### [id number] ####[facility] ITAL LAB (BEAKER)[address] [place] [address] Neutrophils (Bld) [#/Vol] 8.66 10*3/uL High 1.60-7.60 [facility] Comment on above: Performed By: #### [id number] ####[facility] ITAL LAB (BEAKER)[address] [place] [address] Neutrophils/100 WBC (Bld) 87.3 % High 40.0-72.0 [facility] Comment on above: Performed By: #### [id number] ####[facility] ITAL LAB (BEAKER)[address] [place] [address] NRBC (PER 100 WBCS) BY AUTOMATED COUNT 0.0 % Normal 0 [facility] Comment on above: Performed By: #### [id number] ####[facility] ITAL LAB (BEAKER)[address] [place] [address] PLATELETS (10*3/UL) IN BLOOD AUTOMATED COUNT 268 10*3/uL Normal 150-400 [facility] Comment on above: Performed By: #### [id number] ####[facility] ITAL LAB ([facility])[address] [place] [address] RBC (Bld) [#/Vol] 4.42 10*6/uL Normal 4.20-5.70 [facility] Comment on above: Performed By: #### [id number] ####[facility] ITAL LAB ([facility])[address] [place] [address] WBC (Bld) [#/Vol] 9.92 10*3/uL Normal 4.00-10.60 [facility] Comment on above: Performed By: #### [id number] ####[facility] ITAL LAB ([facility])[address] [place] [address] CONSULTon 08-14-[address] [facility] DIGOXIN LEVELon 08-14-2023 DIGOXIN (NG/ML) IN SER/PLAS <0.3 Low 0.7-2 [facility] Comment on above: Performed By: #### [id number] ####[facility])[address] [place] [address] MAGNESIUMon 08-14-2023 Magnesium [Mass/Vol] 2.2 mg/dL Normal 1.9-2.7 [facility] Comment on above: Performed By: #### [id number] ####[facility] ([facility])[address] [place] [address] POCT GLUCOSE METER UNSOLICIT ED RESULTSon 08-14-2023 Glucose [Mass/Vol] 193 mg/dL High 70-105 [facility] Comment on above: Order Comment: Waived Testing in the ED is performed under the ED CLIA certificate #[id number]. Result Comment: [email or web address] Performed By: #### L [id number] ####[facility] ([facility])[address] [place] [address] Glucose [Mass/Vol] 202 mg/dL High 70-105 [facility] Comment on above: Order Comment: Waived Testing in the ED is performed under the ED CLIA certificate #[id number]. Result Comment: [email or web address] Performed By: #### L [id number] ####[facility] ([facility])[address] [place] [address] Glucose [Mass/Vol] 202 mg/dL High 70-105 [facility] Comment on above: Order Comment: Waived Testing in the ED is performed under the ED CLIA certificate #[id number]. Result Comment: [email or web address] Performed By: #### L [id number] ####[facility] ([facility])[address] [place] [address] Glucose [Mass/Vol] 120 mg/dL High 70-105 [facility] Comment on above: Order Comment: Waived Testing in the ED is performed under the ED CLIA certificate #[id number]. Result Comment: [email or web address] Performed By: #### L [id number] ####[facility] ([facility])[address] [place] [address] 30on 08-13-[address] [facility] ANESon 08-13-[address] [facility] B-TYPE NATRIURETIC PEPTIDEon 08-13-2023 Natriuretic peptide B (Bld) [Mass/Vol] 790 pg/mL High 0-100 [facility] Comment on above: Performed By: #### [id number] ####[facility] ([facility])[address] [place] [address] BASIC METABOLIC PANELon 07-29 Anion gap [Moles/Vol] 18 mmol/L Normal 7-20 [facility] Comment on above: Performed By: #### [id number] ####[facility] ([facility])[address] [place] [address] Calcium [Mass/Vol] 8.7 mg/dL Normal 8.6-10.3 [facility] Comment on above: Performed By: #### [id number] ####[facility] LAB (BEAKER)[address] [place] [address] Chloride [Moles/Vol] 97 mmol/L Low 98-107 [facility] Comment on above: Performed By: #### [id number] ####[facility] (BEAKER)[address] [place] [address] CO2 [Moles/Vol] 19 mmol/L Low 21-31 [facility] Comment on above: Performed By: #### [id number] ####[facility] [place] [address] Creatinine [Mass/Vol] 1.42 mg/dL High 0.70-1.30 [facility] Comment on above: Performed By: #### [id number] ####[facility] (BEAKER)[address] [place] [address] GLOMERULAR FILTRATION RATE ML/MIN/1.73 SQ M.PREDICTED 53.8 mL/min/1.73m*2 Low >60.0 [facility] Comment on above: Result Comment: The [facility]???s estimated glomerular filtration rate (eGFR) will no longer include consideration of race in its calculation. The National Kidney Foundation???s eGFR Task Force developed new recommendations for the estimation of the glomerular filtration rate in the [place] They recommend immediate implementation of the new equation refit without the race variable in all laboratories because the calculation does not include race. In addition to not including race in the calculation and reporting, it included diversity in its development, and has acceptable performance characteristics and potential consequences that do not disproportionately affect any one group of individuals. Performed By: #### L [id number] ####[facility] (BEAKER)[address] [place] [address] Glucose [Mass/Vol] 239 mg/dL High 70-100 [facility] Comment on above: Performed By: #### [id number] ####[facility] (BEAKER)[address] [place] [address] Potassium [Moles/Vol] 4.4 mmol/L Normal 3.5-5.1 [facility] Comment on above: Performed By: #### [id number] ####[facility] LAB (BEAKER)[address] [place] [address] Sodium [Moles/Vol] 130 mmol/L Low 136-145 [facility] Comment on above: Performed By: #### [id number] ####[facility] LAB (BEAKER)[address] [place] [address] Urea nitrogen [Mass/Vol] 47 mg/dL High 7-25 [facility] Comment on above: Performed By: #### [id number] ####[facility] LAB (BEAKER)[address] [place] [address] UREA NITROGEN/CREATIN INE (MASS RATIO) IN SER/PLAS 33.[address] [facility] Comment on above: Performed By: #### [id number] ####[facility] LAB (BEAKER)[address] [place] [address] C-REACTIVE PROTEINon 024 C REACTIVE PROTEIN (MG/L) IN SER/PLAS 154.0 mg/L High 0.0-7.0 [facility] Comment on above: Performed By: #### [id number] ####[facility] (BEAKER)[address] [place] [address] CBCon 08-13-2023 Erythrocyte distribution width (RBC) [Ratio] 16.9 % High 11.5-15.0 [facility] Comment on above: Performed By: #### [id number] ####[facility] (BEAKER)[address] [place] [address] ERYTHROCYTE MEAN CORPUSCULAR HEMOGLOBIN CONCENTRATION (G/DL) BY AUTOMATED 33.0 g/dL Normal 32.0-35.0 [facility] Comment on above: Performed By: #### [id number] ####[facility] (BEAKER)[address] [facility] [address] Hematocrit (Bld) [Volume fraction] 37.3 % Low 39.0-55.0 [facility] Comment on above: Performed By: #### [id number] ####[facility] (BEAKER)[address] [place] [address] Hemoglobin (Bld) [Mass/Vol] 12.3 g/dL Low 13.0-17.0 [facility] Comment on above: Performed By: #### [id number] ####[facility] (BEAKER)[address] [place] [address] MCH (RBC) [Entitic mass] 27.6 pg Normal 27.0-33.0 [facility] Comment on above: Performed By: #### [id number] ####[facility] [place] [address] MCV (RBC) [Entitic vol] 83.8 fL Normal 82.0-98.0 [facility] Comment on above: Performed By: #### [id number] ####[facility] (BEAKER)[address] [place] [address] PLATELETS (10*3/UL) IN BLOOD AUTOMATED COUNT 270 10*3/uL Normal 150-400 [facility] Comment on above: Performed By: #### [id number] ####[facility] [place] [address] RBC (Bld) [#/Vol] 4.45 10*6/uL Normal 4.20-5.70 [facility] Comment on above: Performed By: #### [id number] ####[facility] (BEAKER)[address] [place] [address] WBC (Bld) [#/Vol] 11.46 10*3/uL High 4.00-10.60 [facility] Comment on above: Performed By: #### [id number] ####[facility] (BEAKER)[address] [place] [address] HPon 08-13-[address] [facility] LACTIC ACID WITH 4 HOUR REFL EXon 08-13-2023 LACTATE (MMOL/L) IN SER/PLAS 1.2 mmol/L Normal 0.5-2.2 [facility] Comment on above: Result Comment: M-CHEMISTRY SPECIMEN MOD ERATELY HEMOLYZED RESULTS MAY NOT BE ACCURATE Performed By: #### L [id number] ####[facility] ([facility])[address] [facility] [place] [address] LACTATE (MMOL/L) IN SER/PLAS 3.2 mmol/L Critically high 0.5-2.2 [facility] Comment on above: Performed By: #### [id number] ####[facility] ([facility])[address] [facility] [place] [address] MAGNESIUMon 08-13-2023 Magnesium [Mass/Vol] 2.2 mg/dL Normal 1.9-2.7 [facility] Comment on above: Performed By: #### [id number] ####[facility] ([facility])[address] [facility] [place] [address] NURSNOTEon 08-13-2023 NURSNOTE Report given to Andre burgess RN, RN verbalized understanding. Normal [facility] POCT GLUCOSE METER UNSOLICIT ED RESULTSon 08-13-2023 Glucose [Mass/Vol] 205 mg/dL High 70-105 [facility] Comment on above: Order Comment: Waived Testing in the ED is performed under the ED CLIA certificate #[id number]. Result Comment: [email or web address] [email or web address] Performed By: #### L [id number] ####[facility] ([facility] [facility] [place] [address] Glucose [Mass/Vol] 203 mg/dL High 70-105 [facility] Comment on above: Order Comment: Waived Testing in the ED is performed under the ED CLIA certificate #[id number]. Result Comment: og [email or web address] Performed By: #### L [id number] ####[facility] ([facility])[address] [facility] [place] [address] Glucose [Mass/Vol] 240 mg/dL High 70-105 [facility] Comment on above: Order Comment: Waived Testing in the ED is performed under the ED CLIA certificate #[id number]. Result Comment: og [email or web address] Performed By: #### L [id number] ####[facility] ([facility])[address] [place] [address] Glucose [Mass/Vol] 247 mg/dL High 70-105 [facility] Comment on above: Order Comment: Waived Testing in the ED is performed under the ED CLIA certificate #[id number]. Result Comment: og [email or web address] Performed By: #### L [id number] ####[facility] ([facility])[address] [place] [address] ANTI-XA (HEPARIN LEVEL)on HEPARIN UNFRACTIONATED (U/ML) IN PPP BY CHROMOGENIC METHOD 0.24 IU/mL Low 0.3-0.7 [facility] Comment on above: Order Comment: Check anti-Xa level every 6 hours while on heparin infusion, or per protocol. Result Comment: Yahaira roxaban and Apixaban will interfere with the anti Xa assay used to monitor UFH and LMWH. Performed By: #### L [id number] ####[facility] ([facility] - [place])[address] [place] [address] HEPARIN UNFRACTIONATED (U/ML) IN PPP BY CHROMOGENIC METHOD 0.28 IU/mL Low 0.3-0.7 [facility] Comment on above: Order Comment: Check anti-Xa level every 6 hours while on heparin infusion, or per protocol. Result Comment: Yahaira roxaban and Apixaban will interfere with the anti Xa assay used to monitor UFH and LMWH. Performed By: #### L [id number] ####[facility] ([facility] [place] [address] HEPARIN UNFRACTIONATED (U/ML) IN PPP BY CHROMOGENIC METHOD 0.59 IU/mL Normal 0.3-0.7 [facility] Comment on above: Order Comment: Check anti-Xa level every 6 hours while on heparin infusion, or per protocol. Result Comment: Yahaira roxaban and Apixaban will interfere with the anti Xa assay used to monitor UFH and LMWH. Performed By: #### L [id number] ####[facility] ([facility])[address] [place] [address] BASIC METABOLIC PANELon 02- Anion gap [Moles/Vol] 17 mmol/L Normal 7-20 [facility] Comment on above: Performed By: #### [id number] ####[facility] (BEAKER)[address] [place] [address] Calcium [Mass/Vol] 8.8 mg/dL Normal 8.6-10.3 [facility] Comment on above: Performed By: #### [id number] ####[facility] (BEAKER)[address] [place] [address] Chloride [Moles/Vol] 99 mmol/L Normal 98-107 [facility] Comment on above: Performed By: #### [id number] ####[facility] (BEAKER)[address] [place] [address] CO2 [Moles/Vol] 18 mmol/L Low 21-31 [facility] Comment on above: Performed By: #### [id number] ####[facility] (BEAKER)[address] [place] [address] Creatinine [Mass/Vol] 1.00 mg/dL Normal 0.70-1.30 [facility] Comment on above: Performed By: #### [id number] ####[facility] (BEAKER)[address] [place] [address] GLOMERULAR FILTRATION RATE ML/MIN/1.73 SQ M.PREDICTED 82.0 mL/min/1.73m*2 Normal >60.0 [facility] Comment on above: Result Comment: The [facility]???s estimated glomerular filtration rate (eGFR) will no longer include consideration of race in its calculation. The National Kidney Foundation???s eGFR Task Force developed new recommendations for the estimation of the glomerular filtration rate in the [place] They recommend immediate implementation of the new equation refit without the race variable in all laboratories because the calculation does not include race. In addition to not including race in the calculation and reporting, it included diversity in its development, and has acceptable performance characteristics and potential consequences that do not disproportionately affect any one group of individuals. Performed By: #### L [id number] ####[facility] (BE[facility]ER)[address] [place] [address] Glucose [Mass/Vol] 227 mg/dL High 70-100 [facility] Comment on above: Performed By: #### [id number] ####[facility] (BEAKER)[address] [place] [address] Potassium [Moles/Vol] 3.9 mmol/L Normal 3.5-5.1 [facility] Comment on above: Performed By: #### [id number] ####[facility] (BEAKER)[address] [place] [address] Sodium [Moles/Vol] 130 mmol/L Low 136-145 [facility] Comment on above: Performed By: #### [id number] ####[facility] (BEAKER)[address] [place] [address] Urea nitrogen [Mass/Vol] 31 mg/dL High 7-25 [facility] Comment on above: Performed By: #### [id number] ####[facility] (BEAKER)[address] [place] [address] UREA NITROGEN/CREATIN INE (MASS RATIO) IN SER/PLAS 31.[address] [facility] Comment on above: Performed By: #### [id number] ####[facility] (BEAKER)[address] [place] [address] CBCon 08-12-2023 Erythrocyte distribution width (RBC) [Ratio] 16.5 % High 11.5-15.0 [facility] Comment on above: Performed By: #### [id number] ####[facility] ([facility]ER)[address] [place] [address] ERYTHROCYTE MEAN CORPUSCULAR HEMOGLOBIN CONCENTRATION (G/DL) BY AUTOMATED 32.8 g/dL Normal 32.0-35.0 [facility] Comment on above: Performed By: #### [id number] ####[facility] ([facility]ER)[address] [place] [address] Hematocrit (Bld) [Volume fraction] 36.6 % Low 39.0-55.0 [facility] Comment on above: Performed By: #### [id number] ####[facility] ([facility]ER)[address] [place] [address] Hemoglobin (Bld) [Mass/Vol] 12.0 g/dL Low 13.0-17.0 [facility] Comment on above: Performed By: #### [id number] ####[facility] (BEAKER)[address] [place] [address] MCH (RBC) [Entitic mass] 27.8 pg Normal 27.0-33.0 [facility] Comment on above: Performed By: #### [id number] ####[facility] ([facility]ER)[address] [place] [address] MCV (RBC) [Entitic vol] 84.7 fL Normal 82.0-98.0 [facility] Comment on above: Performed By: #### [id number] ####[facility] ([facility]AKER)[address] [place] [address] PLATELETS (10*3/UL) IN BLOOD AUTOMATED COUNT 319 10*3/uL Normal 150-400 [facility] Comment on above: Performed By: #### [id number] ####[facility] ([facility]AKER)[address] [place] [address] RBC (Bld) [#/Vol] 4.32 10*6/uL Normal 4.20-5.70 [facility] Comment on above: Performed By: #### [id number] ####[facility] ([facility])[address] [place] [address] WBC (Bld) [#/Vol] 9.98 10*3/uL Normal 4.00-10.60 [facility] Comment on above: Performed By: #### [id number] ####[facility] ([facility]AKER)[address] [place] [address] CONSULTon 08-12-[address] [facility] HPon 08-12-[address] [facility] POCT GLUCOSE METER UNSOLICIT ED RESULTSon 08-12-2023 Glucose [Mass/Vol] 234 mg/dL High 70-105 [facility] Comment on above: Order Comment: Waived Testing in the ED is performed under the ED CLIA certificate #[id number]. Result Comment: [email or web address] Performed By: #### L [id number] ####[facility] (BEAKER)[address] [place] [address] Glucose [Mass/Vol] 204 mg/dL High 70-105 [facility] Comment on above: Order Comment: Waived Testing in the ED is performed under the ED CLIA certificate #[id number]. Result Comment: [email or web address] Performed By: #### L [id number] ####[facility] (BEAKER)[address] [place] [address] Glucose [Mass/Vol] 263 mg/dL High 70-105 [facility] Comment on above: Order Comment: Waived Testing in the ED is performed under the ED CLIA certificate #[id number]. Result Comment: [email or web address] Performed By: #### L [id number] ####[facility] (BEAKER)[address] [place] [address] Glucose [Mass/Vol] 245 mg/dL High 70-105 [facility] Comment on above: Order Comment: Waived Testing in the ED is performed under the ED CLIA certificate #[id number]. Result Comment: [email or web address] Performed By: #### L [id number] ####[facility] (BEAKER)[address] [place] [address] Glucose [Mass/Vol] 213 mg/dL High 70-105 [facility] Comment on above: Order Comment: Waived Testing in the ED is performed under the ED CLIA certificate #[id number]. Result Comment: [email or web address] Performed By: #### L [id number] ####[facility] (BEAKER)[address] [place] [address] Glucose [Mass/Vol] 198 mg/dL High 70-105 [facility] Comment on above: Order Comment: Waived Testing in the ED is performed under the ED CLIA certificate #[id number]. Result Comment: [email or web address] Performed By: #### L [id number] ####[facility] ([facility])[address] [facility] [place] [address] APTTon 08-11-2023 ACTIVATED PARTIAL THROMBOPLASTIN TIME IN PPP BY COAGULATION ASSAY >200.0 Critically high 25.0-35.0 [facility] Comment on above: Order Comment: Baseline aPTT before init iating heparin infusion. Result Comment: Clin ical significance of the APTT is questionable in the presence of heparin. Performed By: #### L [id number] ####[facility] ([facility])[address] [facility] [place] [address] ACTIVATED PARTIAL THROMBOPLASTIN TIME IN PPP BY COAGULATION ASSAY 35.0 Seconds Normal 25.0-35.0 [facility] Comment on above: Result Comment: Clinical significance of the APTT is questionable in the presence of heparin. Performed By: #### L [id number] ####[facility] ([facility])[address] [facility] [place] [address] B-TYPE NATRIURETIC PEPTIDEon 08-11-2023 Natriuretic peptide B (Bld) [Mass/Vol] 1000 pg/mL High 0-100 [facility] Comment on above: Performed By: #### [id number] ####[facility] ([facility])[address] [facility] [place] [address] BASIC METABOLIC PANELon 07-29 Anion gap [Moles/Vol] 19 mmol/L Normal 7-20 [facility] Comment on above: Performed By: #### [id number] ####[facility] ([facility])[address] [facility] [place] [address] Calcium [Mass/Vol] 8.9 mg/dL Normal 8.6-10.3 [facility] Comment on above: Performed By: #### [id number] ####[facility] ([employer])[address] [facility] [place] [address] Chloride [Moles/Vol] 99 mmol/L Normal 98-107 [facility] Comment on above: Performed By: #### [id number] ####[facility] (BEAKER)[address] [facility] [address] CO2 [Moles/Vol] 17 mmol/L Low 21-31 [facility] Comment on above: Performed By: #### [id number] ####[facility] (BEAKER)[address] [facility] [place] [address] Creatinine [Mass/Vol] 0.86 mg/dL Normal 0.70-1.30 [facility] Comment on above: Performed By: #### [id number] ####[facility] ([facility] [place] [address] GLOMERULAR FILTRATION RATE ML/MIN/1.73 SQ M.PREDICTED 94.3 mL/min/1.73m*2 Normal >60.0 [facility] Comment on above: Result Comment: The [facility]???s estimated glomerular filtration rate (eGFR) will no longer include consideration of race in its calculation. The National Kidney Foundation???s eGFR Task Force developed new recommendations for the estimation of the glomerular filtration rate in the [place] They recommend immediate implementation of the new equation refit without the race variable in all laboratories because the calculation does not include race. In addition to not including race in the calculation and reporting, it included diversity in its development, and has acceptable performance characteristics and potential consequences that do not disproportionately affect any one group of individuals. Performed By: #### L [id number] ####[facility] ([facility]ER)[address] [facility] [place] [address] Glucose [Mass/Vol] 132 mg/dL High 70-100 [facility] Comment on above: Performed By: #### [id number] ####[facility] [facility] [place] [address] Potassium [Moles/Vol] 4.1 mmol/L Normal 3.5-5.1 [facility] Comment on above: Performed By: #### [id number] ####[facility] (BEAKER)[address] [place] [address] Sodium [Moles/Vol] 131 mmol/L Low 136-145 [facility] Comment on above: Performed By: #### [id number] ####[facility] (BEAKER)[address] [place] [address] Urea nitrogen [Mass/Vol] 25 mg/dL Normal 7-25 [facility] Comment on above: Performed By: #### [id number] ####[facility] (BEAKER)[address] [place] [address] UREA NITROGEN/CREATIN INE (MASS RATIO) IN SER/PLAS 29.[address] [facility] Comment on above: Performed By: #### [id number] ####[facility] (BEAKER)[address] [place] [address] CBCon 08-11-2023 Erythrocyte distribution width (RBC) [Ratio] 16.4 % High 11.5-15.0 [facility] Comment on above: Performed By: #### [id number] ####[facility] ([facility]ER)[address] [place] [address] ERYTHROCYTE MEAN CORPUSCULAR HEMOGLOBIN CONCENTRATION (G/DL) BY AUTOMATED 32.9 g/dL Normal 32.0-35.0 [facility] Comment on above: Performed By: #### [id number] ####[facility] ([facility]ER)[address] [place] [address] Hematocrit (Bld) [Volume fraction] 37.1 % Low 39.0-55.0 [facility] Comment on above: Performed By: #### [id number] ####[facility] ([facility]AKER)[address] [place] [address] Hemoglobin (Bld) [Mass/Vol] 12.2 g/dL Low 13.0-17.0 [facility] Comment on above: Performed By: #### [id number] ####[facility] (BEAKER)[address] [place] [address] MCH (RBC) [Entitic mass] 27.1 pg Normal 27.0-33.0 [facility] Comment on above: Performed By: #### [id number] ####[facility] (BEAKER)[address] [place] [address] MCV (RBC) [Entitic vol] 82.3 fL Normal 82.0-98.0 [facility] Comment on above: Performed By: #### [id number] ####[facility] (BEAKER)[address] [place] [address] PLATELETS (10*3/UL) IN BLOOD AUTOMATED COUNT 362 10*3/uL Normal 150-400 [facility] Comment on above: Performed By: #### [id number] ####[facility] (BEAKER)[address] [place] [address] RBC (Bld) [#/Vol] 4.51 10*6/uL Normal 4.20-5.70 [facility] Comment on above: Performed By: #### [id number] ####[facility] (BEAKER)[address] [place] [address] WBC (Bld) [#/Vol] 11.35 10*3/uL High 4.00-10.60 [facility] Comment on above: Performed By: #### [id number] ####[facility] (BEAKER)[address] [place] [address] CBC WITH AUTO DIFFERENTIALon 08-11-2023 Basophils (Bld) [#/Vol] 0.04 10*3/uL Normal 0.00-0.20 [facility] Comment on above: Performed By: #### [id number] ####[facility] (BEAKER)[address] [place] [address] Basophils/100 WBC (Bld) 0.4 % Normal 0.0-1.0 [facility] Comment on above: Performed By: #### [id number] ####[facility] (BEAKER)[address] [place] [address] Eosinophils (Bld) [#/Vol] 0.02 10*3/uL Normal 0.00-0.50 [facility] Comment on above: Performed By: #### [id number] ####[facility] (BEAKER)[address] [place] [address] Eosinophils/100 WBC (Bld) 0.2 % Normal 0.0-6.0 [facility] Comment on above: Performed By: #### [id number] ####[facility] (BEAKER)[address] [place] [address] Erythrocyte distribution width (RBC) [Ratio] 16.4 % High 11.5-15.0 [facility] Comment on above: Performed By: #### [id number] ####[facility] (BEAKER)[address] [place] [address] ERYTHROCYTE MEAN CORPUSCULAR HEMOGLOBIN CONCENTRATION (G/DL) BY AUTOMATED 33.4 g/dL Normal 32.0-35.0 [facility] Comment on above: Performed By: #### [id number] ####[facility] (BEAKER)[address] [place] [address] Hematocrit (Bld) [Volume fraction] 38.0 % Low 39.0-55.0 [facility] Comment on above: Performed By: #### [id number] ####[facility] (BEAKER)[address] [place] [address] Hemoglobin (Bld) [Mass/Vol] 12.7 g/dL Low 13.0-17.0 [facility] Comment on above: Performed By: #### [id number] ####[facility] (BEAKER)[address] [place] [address] Immature granulocytes (Bld) [#/Vol] 0.03 10*3/uL Normal 0.00-0.20 [facility] Comment on above: Performed By: #### [id number] ####[facility] (BEAKER)[address] [place] [address] Immature granulocytes/100 WBC (Bld) 0.3 % Normal 0.0-1.0 [facility] Comment on above: Performed By: #### [id number] ####[facility] (BEAKER)[address] [place] [address] Lymphocytes (Bld) [#/Vol] 0.51 10*3/uL Low 1.20-4.00 [facility] Comment on above: Performed By: #### [id number] ####[facility] (BEAKER)[address] [place] [address] Lymphocytes/100 WBC (Bld) 4.9 % Low 20.0-45.0 [facility] Comment on above: Performed By: #### [id number] ####[facility] (BEAKER)[address] [place] [address] MCH (RBC) [Entitic mass] 28.1 pg Normal 27.0-33.0 [facility] Comment on above: Performed By: #### [id number] ####[facility] (BEAKER)[address] [place] [address] MCV (RBC) [Entitic vol] 84.1 fL Normal 82.0-98.0 [facility] Comment on above: Performed By: #### [id number] ####[facility] (BEAKER)[address] [place] [address] Monocytes (Bld) [#/Vol] 0.82 10*3/uL Normal 0.10-1.00 [facility] Comment on above: Performed By: #### [id number] ####[facility] (BEAKER)[address] [place] [address] Monocytes/100 WBC (Bld) 7.9 % Normal 5.0-12.0 [facility] Comment on above: Performed By: #### [id number] ####[facility] (BEAKER)[address] [place] [address] Neutrophils (Bld) [#/Vol] 8.99 10*3/uL High 1.60-7.60 [facility] Comment on above: Performed By: #### [id number] ####[facility] (BEAKER)[address] [place] [address] Neutrophils/100 WBC (Bld) 86.3 % High 40.0-72.0 [facility] Comment on above: Performed By: #### [id number] ####[facility] (BEAKER)[address] [place] [address] NRBC (PER 100 WBCS) BY AUTOMATED COUNT 0.0 % Normal 0 [facility] Comment on above: Performed By: #### [id number] ####[facility] (BEAKER)[address] [place] [address] PLATELETS (10*3/UL) IN BLOOD AUTOMATED COUNT 350 10*3/uL Normal 150-400 [facility] Comment on above: Performed By: #### [id number] ####[facility] (BEAKER)[address] [place] [address] RBC (Bld) [#/Vol] 4.52 10*6/uL Normal 4.20-5.70 [facility] Comment on above: Performed By: #### [id number] ####[facility] (BEAKER)[address] [place] [address] WBC (Bld) [#/Vol] 10.41 10*3/uL Normal 4.00-10.60 [facility] Comment on above: Performed By: #### [id number] ####[facility] (BEAKER)[address] [place] [address] COMPREHENSIVE METABOLIC PANE Jayden 08-11-2023 Albumin [Mass/Vol] 3.8 g/dL Normal 3.5-5.7 [facility] Comment on above: Performed By: #### [id number] ####[facility] (BEAKER)[address] [place] [address] ALP [Catalytic activity/Vol] 199 U/L High 34-104 [facility] Comment on above: Performed By: #### [id number] ####[facility] (BEAKER)[address] [place] [address] ALT [Catalytic activity/Vol] 82 U/L High 7-52 [facility] Comment on above: Performed By: #### [id number] ####[facility] (BEAKER)[address] [place] [address] Anion gap [Moles/Vol] 17 mmol/L Normal 7-20 [facility] Comment on above: Performed By: #### [id number] ####[facility] (BEAKER)[address] [place] [address] AST [Catalytic activity/Vol] 74 U/L High 13-39 [facility] Comment on above: Performed By: #### [id number] ####[facility] (BEAKER)[address] [place] [address] Bilirubin [Mass/Vol] 0.6 mg/dL Normal 0.3-1.0 [facility] Comment on above: Performed By: #### [id number] ####[facility] (BEAKER)[address] [place] [address] Calcium [Mass/Vol] 8.9 mg/dL Normal 8.6-10.3 [facility] Comment on above: Performed By: #### [id number] ####[facility] (BEAKER)[address] [place] [address] Chloride [Moles/Vol] 100 mmol/L Normal 98-107 [facility] Comment on above: Performed By: #### [id number] ####[facility] (BEAKER)[address] [place] [address] CO2 [Moles/Vol] 18 mmol/L Low 21-31 [facility] Comment on above: Performed By: #### [id number] ####[facility] (BEAKER)[address] [place] [address] Creatinine [Mass/Vol] 0.86 mg/dL Normal 0.70-1.30 [facility] Comment on above: Performed By: #### [id number] ####[facility] (BEAKER)[address] [place] [address] GLOMERULAR FILTRATION RATE ML/MIN/1.73 SQ M.PREDICTED 94.3 mL/min/1.73m*2 Normal >60.0 [facility] Comment on above: Result Comment: The [facility]???s estimated glomerular filtration rate (eGFR) will no longer include consideration of race in its calculation. The National Kidney Foundation???s eGFR Task Force developed new recommendations for the estimation of the glomerular filtration rate in the [place] They recommend immediate implementation of the new equation refit without the race variable in all laboratories because the calculation does not include race. In addition to not including race in the calculation and reporting, it included diversity in its development, and has acceptable performance characteristics and potential consequences that do not disproportionately affect any one group of individuals. Performed By: #### L [id number] ####[facility] (BEAKER)[address] [place] [address] Glucose [Mass/Vol] 171 mg/dL High 70-100 [facility] Comment on above: Performed By: #### [id number] ####[facility] (BEAKER)[address] [place] [address] Potassium [Moles/Vol] 4.3 mmol/L Normal 3.5-5.1 [facility] Comment on above: Performed By: #### [id number] ####[facility] (BEAKER)[address] [place] [address] Protein [Mass/Vol] 7.2 g/dL Normal 6.0-8.3 [facility] Comment on above: Performed By: #### [id number] ####[facility] (BEAKER)[address] [place] [address] Sodium [Moles/Vol] 131 mmol/L Low 136-145 [facility] Comment on above: Performed By: #### [id number] ####[facility] (BEAKER)[address] [place] [address] Urea nitrogen [Mass/Vol] 24 mg/dL Normal 7-25 [facility] Comment on above: Performed By: #### [id number] ####[facility] ([place])[address] [facility] [place] [address] UREA NITROGEN/CREATIN INE (MASS RATIO) IN SER/PLAS 27.[address] [facility] Comment on above: Performed By: #### [id number] ####[facility] ([place])[address] [facility] [place] [address] EDPROVon 08-11-[address] [facility] GAMMA GTon 08-11-2023 Amylase [Catalytic activity/Vol] 76 U/L High 9-64 [facility] Comment on above: Performed By: #### [id number] ####[facility] ([place])[address] [facility] [place] [address] HEPATITIS PANEL, ACUTEon HEPATITIS A VIRUS IGM AB PRESENCE IN SER/PLAS Non-Reactive Normal Nonreactive [facility] Comment on above: Performed By: #### [id number] ####[facility] ([place])[address] [facility] [place] [address] HEPATITIS B VIRUS CORE AB (PRESENCE) IN SER/PLAS BY IMM Non-Reactive Normal Nonreactive [facility] Comment on above: Performed By: #### [id number] ####[facility] ([place])[address] [facility] [place] [address] HEPATITIS B VIRUS SURFACE AG PRESENCE IN SERUM Non-Reactive Normal Nonreactive [facility] Comment on above: Performed By: #### [id number] ####[facility] ([place])[address] [facility] [place] [address] HEPATITIS C VIRUS AB PRESENCE IN SERUM Non-Reactive Normal Nonreactive [facility] Comment on above: Performed By: #### [id number] ####[facility] (Saiguo)[address] [facility] [address] HPon 08-11-[address] [facility] PROTIME-INRon 08-11-2023 INR IN PPP BY COAGULATION ASSAY 1.32 High 0.90-1.10 [facility] Comment on above: Result Comment: ACC RECOMMENDED INR FO R WARFARIN THERAPY CONDITION INRPROPHYLAXIS OF VENOUS THROMBOSIS 2-3(HIGH-RISK SURGERY)TREATMENT OF VENOUS THROMBOSIS 2-3TREATMENT OF PULMONARY EMBOLISM 2-3PREVENTION OF SYSTEMIC EMBOLISM: 2-3 ACUTE MYOCARDIAL INFARCTION TISSUE HEART VALVES VALVULAR HEART DISEASE ATRIAL FIBRILLATION RECURRENT SYSTEMIC EMBOLISMMECHANICAL HEART VALVE 2.5-3.5 FROM: ORAL ANTICOAGULANTS. MECHANISM OF ACTION, CLINICAL EFFECTIVENESS, AND OPTIMAL THERAPEUTIC RANGE. CHEST 1995;108:231S-246S. Performed By: #### L [id number] ####[facility] (Chartboost)[employer] [address] PROTHROMBIN TIME (PT) IN PPP BY COAGULATION ASSAY 16.5 Seconds High 12.3-14.8 [facility] Comment on above: Performed By: #### [id number] ####[facility] (Sa[place]uo)[address] [place] [address] TROPONIN Ion 08-11-2023 Troponin I.cardiac [Mass/Vol] 0.16 ng/mL Critically high 0.00-0.04 [facility] Comment on above: Result Comment: M-TROPONIN INITIAL CRITI ANNA HIGH; RESPUN AND RETESTED Performed By: #### L [id number] ####[facility] [employer])Chartboost)[address] [place] [address] ALL CBC WITH AUTO DIFFon BASOPHILS ABSOLUTE AUTO 0.1 [facility] Basophils/100 WBC (Bld) 0.7 % 0.2 - 2.0 % [facility] Eosinophils/100 WBC (Bld) 1.1 % 0.9 - 7.0 % [facility] Erythrocyte distribution width (RBC) [Ratio] 16.2 % High 11.0 - 15.0 % [facility] Hematocrit (Bld) [Volume fraction] 38.8 % Low 42.0 - 54.0 % [facility] Hemoglobin (Bld) [Mass/Vol] 12.3 g/dL Low 14.0 - 18.0 g/dL [facility] IMMATURE GRANULOCYTES ABS AUTO 0.03 [facility] Immature granulocytes/100 WBC (Bld) 0.3 % 0.0 - 0.5 % [facility] Interpretation and review of laboratory results Abnormal [facility] LYMPHOCYTES ABSOLUTE AUTO 0.7 Low [facility] Lymphocytes/100 WBC (Bld) 6.9 % Low 20.5 - 60.0 % [facility] MCH (RBC) [Entitic mass] 27.3 pg 25.9 - 34.0 pg [facility] MCHC (RBC) [Mass/Vol] 31.7 g/dL 29.9 - 35.2 g/dL [facility] MCV (RBC) [Entitic vol] 86.2 fL 80.0 - 94.0 fL [facility] MONOCYTES ABSOLUTE AUTO 0.7 [facility] Monocytes/100 WBC (Bld) 6.9 % 1.7 - 12.0 % [facility] NEUTROPHILS ABSOLUTE AUTO 7.9 High [facility] Neutrophils/100 WBC (Bld) 84.1 % High 43.0 - 75.0 % [facility] Platelet mean volume (Bld) [Entitic vol] 10.0 fL 9.5 - 13.5 fL [facility] EO # 0.1 [facility] PLT 334 [facility] RBC 4.50 Low [facility] WBC 9.4 [facility] Rad - Other Radiology Report on 08-09-2023 Rad - Other Radiology Report [id number] [facility] 36on 07-30-2023 36 Spoke with patient a nd he is doing well on half tablet of lasix. Dr. Leal is ok with this and patient was informed. Told him I'd send his info to Dr. Bautista since he'd like to get established with him. [facility] 36on 07-27-2023 36 [facility] XR SHOULDER LT MIN 2 VWSon 0 07-21-2023 XR SHOULDER LT MIN 2 VWS XR SHOULDER LT MIN 2 VWS CLINICAL INFORMATION: Left shoulder pain, unspecified chronicity TECHNIQUE: XR SHOULDER LT MIN 2 VWS 3 views left shoulder were obtained. AC joint degenerative changes noted. There is no acute fracture. No malalignment. IMPRESSION: AC joint degenerative changes. Finalized by Robert Hook MD on 07/21/2023 12:16 PM [facility] XR SHOULDER RT MIN 2 VWSon 0 07-21-2023 XR SHOULDER RT MIN 2 VWS XR SHOULDER RT MIN 2 VWS CLINICAL INFORMATION: Right shoulder pain, unspecified chronicity TECHNIQUE: XR SHOULDER RT MIN 2 VWS 3 views right shoulder were obtained. There is no acute osseous, articular, or soft tissue abnormality. IMPRESSION: No acute findings. Finalized by Robert Hook MD on 07/21/2023 12:15 PM [facility] 36on 07-16-2023 36 [facility] Telephoneon 07-16-2023 Telephone [facility] 36on 07-09-2023 36 Patient called to bebe hardwick aware of shoulder muscle pain and myalgias since starting Crestor. Advised him to stop until his coming apt with Dr. Leal on 07/15/2023. Told him he could further discuss at that time. He verbalized understanding. [facility] 36on 06-09-2023 36 Per Hospitalist team , pt was taking isosorbide 30 mg during the hospital admission, so they discharged him on that dosage. They stated he has multiple med adjustments and Cardiology can increase the isosorbide if they wish to. Pt notified. [facility] 36 [facility] Documentationon 06-09-2023 Documentation [facility] Telephoneon 06-09-2023 Telephone [id number] Judson Bolton 1955 M Date Provider Department Center 06/09/2023 [id number] JUAREZ [facility] VASC LAB [facility] HeartVAS No family history on file Normal [facility] 30on 06-08-[address] [facility] [address] [facility] ANTI-XA (HEPARIN LEVEL)on HEPARIN UNFRACTIONATED (U/ML) IN PPP BY CHROMOGENIC METHOD 0.35 IU/mL Normal 0.3-0.7 [facility] Comment on above: Result Comment: Rivaroxaban and Apixaban will interfere with the anti Xa assay used to monitor UFH and LMWH. Performed By: #### L [id number] ####[facility] (BEAKER)[address] [place] [address] HEPARIN UNFRACTIONATED (U/ML) IN PPP BY CHROMOGENIC METHOD 0.25 IU/mL Low 0.3-0.7 [facility] Comment on above: Result Comment: Rivaroxaban and Apixaban will interfere with the anti Xa assay used to monitor UFH and LMWH. Performed By: #### L [id number] ####[facility] (BEAKER)[address] [place] [address] CBCon 06-08-2023 Erythrocyte distribution width (RBC) [Ratio] 15.7 % High 11.5-15.0 [facility] Comment on above: Performed By: #### [id number] ####[facility] [place] [address] ERYTHROCYTE MEAN CORPUSCULAR HEMOGLOBIN CONCENTRATION (G/DL) BY AUTOMATED 31.1 g/dL Low 32.0-35.0 [facility] Comment on above: Performed By: #### [id number] ####[facility] ([facility]ER)[address] [place] [address] Hematocrit (Bld) [Volume fraction] 44.0 % Normal 39.0-55.0 [facility] Comment on above: Performed By: #### [id number] ####[facility] ([facility]AKER)[address] [place] [address] Hemoglobin (Bld) [Mass/Vol] 13.7 g/dL Normal 13.0-17.0 [facility] Comment on above: Performed By: #### [id number] ####[facility] (BEAKER)[address] [place] [address] MCH (RBC) [Entitic mass] 27.9 pg Normal 27.0-33.0 [facility] Comment on above: Performed By: #### [id number] ####[facility] (BEAKER)[address] [place] [address] MCV (RBC) [Entitic vol] 89.6 fL Normal 82.0-98.0 [facility] Comment on above: Performed By: #### [id number] ####[facility] (BEAKER)[address] [place] [address] PLATELETS (10*3/UL) IN BLOOD AUTOMATED COUNT 247 10*3/uL Normal 150-400 [facility] Comment on above: Performed By: #### [id number] ####[facility] (BEAKER)[address] [place] [address] RBC (Bld) [#/Vol] 4.91 10*6/uL Normal 4.20-5.70 [facility] Comment on above: Performed By: #### [id number] ####[facility] (BEAKER)[address] [place] [address] WBC (Bld) [#/Vol] 6.19 10*3/uL Normal 4.00-10.60 [facility] Comment on above: Performed By: #### [id number] ####[facility] (BEAKER)[address] [place] [address] CONSULTon 06-08-[address] [facility] DSon 06-08-[address] [facility] Letter (Out)on 06-08-2023 Letter (Out) [id number] Judson Bolton E 1955 M Date Provider Department Center 06/08/2023 [id number], GENERIC PRO*INIT None No family history on file Normal [facility] RENAL FUNCTION PANELon 06-08 Albumin [Mass/Vol] 4.1 g/dL Normal 3.5-5.7 [facility] Comment on above: Performed By: #### [id number] ####[facility] AL LAB (BEAKER)[address] [place] [address] Anion gap [Moles/Vol] 18 mmol/L Normal 7-20 [facility] Comment on above: Performed By: #### [id number] ####[facility] AL LAB (BEAKER)[address] [place] [address] CALCIUM (MG/DL) CORRECTED FOR ALBUMIN IN SER/PLAS Normal [facility] Comment on above: Result Comment: Not Calculated Performed By: #### L [id number] ####[facility] (BEAKER)[address] [place] [address] Calcium [Mass/Vol] 9.4 mg/dL Normal 8.6-10.3 [facility] Comment on above: Performed By: #### [id number] ####[facility] AL LAB (BEAKER)[address] [place] [address] Chloride [Moles/Vol] 105 mmol/L Normal 98-107 [facility] Comment on above: Performed By: #### [id number] ####[facility] LAB (BEAKER)[address] [place] [address] CO2 [Moles/Vol] 17 mmol/L Low 21-31 [facility] Comment on above: Performed By: #### [id number] ####[facility] LAB (BEAKER)[address] [place] [address] Creatinine [Mass/Vol] 0.90 mg/dL Normal 0.70-1.30 [facility] Comment on above: Performed By: #### [id number] ####[facility] LAB (BEAKER)[address] [place] [address] FASTING? unknown Normal [facility] Comment on above: Performed By: #### [id number] ####[facility] LAB (BEAKER)[address] [place] [address] GLOMERULAR FILTRATION RATE ML/MIN/1.73 SQ M.PREDICTED 93.0 mL/min/1.73m*2 Normal >60.0 [facility] Comment on above: Result Comment: The [facility]'s estimated glomerular filtration rate (eGFR) will no longer include consideration of race in its calculation. The National Kidney Foundation's eGFR Task Force developed new recommendations for the estimation of the glomerular filtration rate in the [place] They recommend immediate implementation of the new equation refit without the race variable in all laboratories because the calculation does not include race. In addition to not including race in the calculation and reporting, it included diversity in its development, and has acceptable performance characteristics and potential consequences that do not disproportionately affect any one group of individuals. Performed By: #### L [id number] ####[facility] (BEAKER)[address] [place] [address] Glucose [Mass/Vol] 120 mg/dL High 70-100 [facility] Comment on above: Performed By: #### [id number] ####[facility] AL LAB (BEAKER)[address] [place] [address] Magnesium [Mass/Vol] 2.8 mg/dL Normal 2.5-5.0 [facility] Comment on above: Performed By: #### [id number] ####[facility] AL LAB (BEAKER)[address] [place] [address] Potassium [Moles/Vol] 4.2 mmol/L Normal 3.5-5.1 [facility] Comment on above: Performed By: #### [id number] ####[facility] LAB (BEAKER)[address] [place] [address] Sodium [Moles/Vol] 136 mmol/L Normal 136-145 [facility] Comment on above: Performed By: #### [id number] ####[facility] LAB (BEAKER)[address] [place] [address] Urea nitrogen [Mass/Vol] 17 mg/dL Normal 7-25 [facility] Comment on above: Performed By: #### [id number] ####[facility] (BEAKER)[address] [place] [address] UREA NITROGEN/CREATIN INE (MASS RATIO) IN SER/PLAS 18.[address] [facility] Comment on above: Performed By: #### [id number] ####[facility] ([facility])[address] [place] [address] TROPONIN Ion 06-08-2023 Troponin I.cardiac [Mass/Vol] 0.15 ng/mL Critically high 0.00-0.04 [facility] Comment on above: Result Comment: M-PREVIOUS CRITICAL RESU LTPrevious result verified on 06/08/2023 0558 on specimen/case [id number] called with component Troponin I for procedure Troponin I with value 0.17 ng/mL. Performed By: #### L [id number] ####[facility] ([facility])[address] [place] [address] Troponin I.cardiac [Mass/Vol] 0.17 ng/mL Critically high 0.00-0.04 [facility] Comment on above: Result Comment: M-PREVIOUS CRITICAL RESU LTPrevious result verified on 06/07/2023 2231 on specimen/case [id number] called with component Troponin I for procedure Troponin I with value 0.15 ng/mL. Performed By: #### L [id number] ####[facility] ([facility])[address] [place] [address] 30on 06-07-[address] [facility] [address] [facility] [address] [facility] ANTI-XA (HEPARIN LEVEL)on HEPARIN UNFRACTIONATED (U/ML) IN PPP BY CHROMOGENIC METHOD 0.30 IU/mL Normal 0.3-0.7 [facility] Comment on above: Result Comment: Rivaroxaban and Apixaban will interfere with the anti Xa assay used to monitor UFH and LMWH. Performed By: #### L [id number] ####[facility] ([facility])[address] [place] [address] HEPARIN UNFRACTIONATED (U/ML) IN PPP BY CHROMOGENIC METHOD 0.23 IU/mL Low 0.3-0.7 [facility] Comment on above: Result Comment: Rivaroxaban and Apixaban will interfere with the anti Xa assay used to monitor UFH and LMWH. Performed By: #### L [id number] ####[facility] (BEAKER)[address] [facility] [address] HEPARIN UNFRACTIONATED (U/ML) IN PPP BY CHROMOGENIC METHOD 0.20 IU/mL Low 0.3-0.7 [facility] Comment on above: Result Comment: Rivaroxaban and Apixaban will interfere with the anti Xa assay used to monitor UFH and LMWH. Performed By: #### L [id number] ####[facility] (BEAKER)[address] [place] [address] BASIC METABOLIC PANELon 12- Anion gap [Moles/Vol] 12 mmol/L Normal 7-20 [facility] Comment on above: Performed By: #### [id number] ####[facility] AL LAB (BEAKER)[address] [place] [address] Calcium [Mass/Vol] 8.9 mg/dL Normal 8.6-10.3 [facility] Comment on above: Performed By: #### [id number] ####[facility] AL LAB (BEAKER)[address] [place] [address] Chloride [Moles/Vol] 104 mmol/L Normal 98-107 [facility] Comment on above: Performed By: #### [id number] ####[facility] AL LAB (BEAKER)[address] [place] [address] CO2 [Moles/Vol] 23 mmol/L Normal 21-31 [facility] Comment on above: Performed By: #### [id number] ####[facility] AL LAB (BEAKER)[address] [place] [address] Creatinine [Mass/Vol] 0.96 mg/dL Normal 0.70-1.30 [facility] Comment on above: Performed By: #### [id number] ####[facility] LAB (BEAKER)[address] [place] [address] GLOMERULAR FILTRATION RATE ML/MIN/1.73 SQ M.PREDICTED 86.1 mL/min/1.73m*2 Normal >60.0 [facility] Comment on above: Result Comment: The [facility]???s estimated glomerular filtration rate (eGFR) will no longer include consideration of race in its calculation. The National Kidney Foundation???s eGFR Task Force developed new recommendations for the estimation of the glomerular filtration rate in the [place] They recommend immediate implementation of the new equation refit without the race variable in all laboratories because the calculation does not include race. In addition to not including race in the calculation and reporting, it included diversity in its development, and has acceptable performance characteristics and potential consequences that do not disproportionately affect any one group of individuals. Performed By: #### L [id number] ####[facility] ([facility])[address] [place] [address] Glucose [Mass/Vol] 121 mg/dL High 70-100 [facility] Comment on above: Performed By: #### [id number] ####[facility] AL LAB (BEAKER)[address] [place] [address] Potassium [Moles/Vol] 3.6 mmol/L Normal 3.5-5.1 [facility] Comment on above: Performed By: #### [id number] ####[facility] AL LAB (BEAKER)[address] [place] [address] Sodium [Moles/Vol] 135 mmol/L Low 136-145 [facility] Comment on above: Performed By: #### [id number] ####[facility] AL LAB (BEAKER)[address] [place] [address] Urea nitrogen [Mass/Vol] 26 mg/dL High 7-25 [facility] Comment on above: Performed By: #### [id number] ####[facility] AL LAB (BEAKER)[address] [place] [address] UREA NITROGEN/CREATIN INE (MASS RATIO) IN SER/PLAS 27.[address] [facility] Comment on above: Performed By: #### [id number] ####[facility] ([facility])[address] [facility] [place] [address] POCT GLUCOSE METER UNSOLICIT ED RESULTSon 06-07-2023 Glucose [Mass/Vol] 155 mg/dL High 70-105 [facility] Comment on above: Order Comment: Waived Testing in the ED is performed under the ED CLIA certificate #[id number]. Result Comment: sonam [email or web address] Performed By: #### L [id number] ####[facility] ([facility])[address] [facility] [place] [address] TROPONIN Ion 06-07-2023 Troponin I.cardiac [Mass/Vol] 0.15 ng/mL Critically high 0.00-0.04 [facility] Comment on above: Result Comment: M-PREVIOUS CRITICAL RESU LTPrevious result verified on 06/07/2023 1431 on specimen/case [id number] called with component Troponin I for procedure Troponin I with value 0.16 ng/mL. Performed By: #### L [id number] ####[facility] ([facility])[address] [place] [address] Troponin I.cardiac [Mass/Vol] 0.16 ng/mL Critically high 0.00-0.04 [facility] Comment on above: Result Comment: M-PREVIOUS CRITICAL RESU LTPrevious result verified on 06/07/2023 0546 on specimen/case [id number] called with component Troponin I for procedure Troponin I with value 0.16 ng/mL. Performed By: #### L [id number] ####[facility] ([facility])[address] [place] [address] Troponin I.cardiac [Mass/Vol] 0.16 ng/mL Critically high 0.00-0.04 [facility] Comment on above: Result Comment: M-PREVIOUS CRITICAL RESU LTPrevious result verified on 06/07/2023 0130 on specimen/case [id number] called with component Troponin I for procedure Troponin I with value 0.16 ng/mL. Performed By: #### L [id number] ####[facility] ([facility])[address] [place] [address] Troponin I.cardiac [Mass/Vol] 0.16 ng/mL Critically high 0.00-0.04 [facility] Comment on above: Result Comment: M-PREVIOUS CRITICAL RESU LTPrevious result verified on 06/06/2023 1220 on specimen/case [id number] called with component Troponin I for procedure Troponin I with value 0.18 ng/mL. Performed By: #### L [id number] ####[facility] ([facility])[address] [place] [address] 30on 06-06-[address] [facility] [address] [facility] ANTI-XA (HEPARIN LEVEL)on HEPARIN UNFRACTIONATED (U/ML) IN PPP BY CHROMOGENIC METHOD 0.38 IU/mL Normal 0.3-0.7 [facility] Comment on above: Result Comment: Rivaroxaban and Apixaban will interfere with the anti Xa assay used to monitor UFH and LMWH. Performed By: #### L [id number] ####[facility] ([facility])[address] [place] [address] HEPARIN UNFRACTIONATED (U/ML) IN PPP BY CHROMOGENIC METHOD 0.44 IU/mL Normal 0.3-0.7 [facility] Comment on above: Result Comment: Rivaroxaban and Apixaban will interfere with the anti Xa assay used to monitor UFH and LMWH. Performed By: #### L [id number] ####[facility] ([facility])[address] [place] [address] BASIC METABOLIC PANELon 05-28 Anion gap [Moles/Vol] 14 mmol/L Normal 7-20 [facility] Comment on above: Performed By: #### [id number] ####[facility] ([facility])[address] [place] [address] Calcium [Mass/Vol] 9.5 mg/dL Normal 8.6-10.3 [facility] Comment on above: Performed By: #### [id number] ####[facility] LAB (BEAKER)[address] [facility] [place] [address] Chloride [Moles/Vol] 104 mmol/L Normal 98-107 [facility] Comment on above: Performed By: #### [id number] ####[facility] LAB (BEAKER)[address] [place] [address] CO2 [Moles/Vol] 23 mmol/L Normal 21-31 [facility] Comment on above: Performed By: #### [id number] ####[facility] (BEAKER)[address] [place] [address] Creatinine [Mass/Vol] 1.41 mg/dL High 0.70-1.30 [facility] Comment on above: Performed By: #### [id number] ####[facility] (BEAKER)[address] [place] [address] GLOMERULAR FILTRATION RATE ML/MIN/1.73 SQ M.PREDICTED 54.3 mL/min/1.73m*2 Low >[address]0 [facility] Comment on above: Result Comment: The [facility]???s estimated glomerular filtration rate (eGFR) will no longer include consideration of race in its calculation. The National Kidney Foundation???s eGFR Task Force developed new recommendations for the estimation of the glomerular filtration rate in the [place] They recommend immediate implementation of the new equation refit without the race variable in all laboratories because the calculation does not include race. In addition to not including race in the calculation and reporting, it included diversity in its development, and has acceptable performance characteristics and potential consequences that do not disproportionately affect any one group of individuals. Performed By: #### L [id number] ####[facility] (BEAKER)[address] [place] [address] Glucose [Mass/Vol] 124 mg/dL High 70-100 [facility] Comment on above: Performed By: #### [id number] ####[facility] (BEAKER)[address] [place] [address] Potassium [Moles/Vol] 3.9 mmol/L Normal 3.5-5.1 [facility] Comment on above: Performed By: #### [id number] ####[facility] LAB (BEAKER)[address] [place] [address] Sodium [Moles/Vol] 137 mmol/L Normal 136-145 [facility] Comment on above: Performed By: #### [id number] ####[facility] LAB (BEAKER)[address] [place] [address] Urea nitrogen [Mass/Vol] 32 mg/dL High 7-25 [facility] Comment on above: Performed By: #### [id number] ####[facility] LAB (BEAKER)[address] [place] [address] UREA NITROGEN/CREATIN INE (MASS RATIO) IN SER/PLAS 22.[address] [facility] Comment on above: Performed By: #### [id number] ####[facility] LAB (BEAKER)[address] [place] [address] CBCon 06-06-2023 Erythrocyte distribution width (RBC) [Ratio] 15.8 % High 11.5-15.0 [facility] Comment on above: Performed By: #### [id number] ####[facility] (BEAKER)[address] [place] [address] ERYTHROCYTE MEAN CORPUSCULAR HEMOGLOBIN CONCENTRATION (G/DL) BY AUTOMATED 32.8 g/dL Normal 32.0-35.0 [facility] Comment on above: Performed By: #### [id number] ####[facility] (BEAKER)[address] [place] [address] Hematocrit (Bld) [Volume fraction] 42.1 % Normal 39.0-55.0 [facility] Comment on above: Performed By: #### [id number] ####[facility] (BEAKER)[address] [place] [address] Hemoglobin (Bld) [Mass/Vol] 13.8 g/dL Normal 13.0-17.0 [facility] Comment on above: Performed By: #### [id number] ####[facility] (BEAKER)[address] [place] [address] MCH (RBC) [Entitic mass] 28.4 pg Normal 27.0-33.0 [facility] Comment on above: Performed By: #### [id number] ####[facility] [place] [address] MCV (RBC) [Entitic vol] 86.6 fL Normal 82.0-98.0 [facility] Comment on above: Performed By: #### [id number] ####[facility] LAB (BEAKER)[address] [facility] [address] PLATELETS (10*3/UL) IN BLOOD AUTOMATED COUNT 220 10*3/uL Normal 150-400 [facility] Comment on above: Performed By: #### [id number] ####[facility] LAB (BEAKER)[address] [place] [address] RBC (Bld) [#/Vol] 4.86 10*6/uL Normal 4.20-5.70 [facility] Comment on above: Performed By: #### [id number] ####[facility] LAB (BEAKER)[address] [place] [address] WBC (Bld) [#/Vol] 6.09 10*3/uL Normal 4.00-10.60 [facility] Comment on above: Performed By: #### [id number] ####[facility] LAB (BEAKER)[address] [facility] [place] [address] TROPONIN Ion 06-06-2023 Troponin I.cardiac [Mass/Vol] 0.15 ng/mL Critically high 0.00-0.04 [facility] Comment on above: Result Comment: M-PREVIOUS CRITICAL RESU LTPrevious result verified on 06/06/2023 1220 on specimen/case [id number] called with component Troponin I for procedure Troponin I with value 0.18 ng/mL. Performed By: #### L [id number] ####[facility] LAB (BEAKER)[address] [place] [address] Troponin I.cardiac [Mass/Vol] 0.18 ng/mL Critically high 0.00-0.04 [facility] Comment on above: Result Comment: Previous result verified on 06/05/2023 1840 on specimen/case [id number] called with component Troponin I for procedure Troponin I with value 0.14 ng/mL. Performed By: #### L [id number] ####[facility] ([facility])[address] [place] [address] Troponin I.cardiac [Mass/Vol] 0.18 ng/mL Critically high 0.00-0.04 [facility] Comment on above: Result Comment: M-PREVIOUS CRITICAL RESU LTPrevious result verified on 06/05/2023 1840 on specimen/case [id number] called with component Troponin I for procedure Troponin I with value 0.14 ng/mL. Performed By: #### L [id number] ####[facility] ([facility])[address] [place] [address] Troponin I.cardiac [Mass/Vol] 0.16 ng/mL Critically high 0.00-0.04 [facility] Comment on above: Result Comment: M-PREVIOUS CRITICAL RESU LTPrevious result verified on 06/05/2023 1840 on specimen/case [id number] called with component Troponin I for procedure Troponin I with value 0.14 ng/mL. Performed By: #### L [id number] ####[facility] ([facility])[address] [place] [address] 30on 06-05-[address] [facility] ANTI-XA (HEPARIN LEVEL)on HEPARIN UNFRACTIONATED (U/ML) IN PPP BY CHROMOGENIC METHOD 0.63 IU/mL Normal 0.3-0.7 [facility] Comment on above: Result Comment: Rivaroxaban and Apixaban will interfere with the anti Xa assay used to monitor UFH and LMWH. Performed By: #### L [id number] ####[facility] ([facility])[address] [place] [address] HEPARIN UNFRACTIONATED (U/ML) IN PPP BY CHROMOGENIC METHOD 0.98 IU/mL Critically high 0.3-0.7 [facility] Comment on above: Result Comment: Rivaroxaban and Apixaban will interfere with the anti Xa assay used to monitor UFH and LMWH. Performed By: #### L [id number] ####[facility] ([facility])[address] [place] [address] HEPARIN UNFRACTIONATED (U/ML) IN PPP BY CHROMOGENIC METHOD 0.60 IU/mL Normal 0.3-0.7 [facility] Comment on above: Order Comment: Check anti-Xa level every 6 hours while on heparin infusion, or per protocol. Result Comment: Yahaira roxaban and Apixaban will interfere with the anti Xa assay used to monitor UFH and LMWH. Performed By: #### L [id number] ####[facility] ([facility])[address] [place] [address] APTTon 06-05-2023 ACTIVATED PARTIAL THROMBOPLASTIN TIME IN PPP BY COAGULATION ASSAY 44.2 Seconds High 25.0-35.0 [facility] Comment on above: Order Comment: Baseline aPTT before init iating heparin infusion. Result Comment: Clin ical significance of the APTT is questionable in the presence of heparin. Performed By: #### L [id number] ####[facility] ([facility])[address] [place] [address] B-TYPE NATRIURETIC PEPTIDEon 06-05-2023 Natriuretic peptide B (Bld) [Mass/Vol] 1109 pg/mL High 0-100 [facility] Comment on above: Performed By: #### [id number] ####[facility] ([facility])[address] [place] [address] CBC WITH AUTO DIFFERENTIALon 06-05-2023 Basophils (Bld) [#/Vol] 0.05 10*3/uL Normal 0.00-0.20 [facility] Comment on above: Performed By: #### [id number] ####[facility] ([facility])[address] [place] [address] Basophils/100 WBC (Bld) 0.6 % Normal 0.0-1.0 [facility] Comment on above: Performed By: #### [id number] ####[facility] HOSP ITAL LAB (BEAKER)[address] [place] [address] Eosinophils (Bld) [#/Vol] 0.06 10*3/uL Normal 0.00-0.50 [facility] Comment on above: Performed By: #### [id number] ####[facility] ITAL LAB (BEAKER)[address] [place] [address] Eosinophils/100 WBC (Bld) 0.7 % Normal 0.0-6.0 [facility] Comment on above: Performed By: #### [id number] ####[facility] ITAL LAB (BEAKER)[address] [place] [address] Erythrocyte distribution width (RBC) [Ratio] 15.5 % High 11.5-15.0 [facility] Comment on above: Performed By: #### [id number] ####[facility] ITAL LAB (BEAKER)[address] [place] [address] ERYTHROCYTE MEAN CORPUSCULAR HEMOGLOBIN CONCENTRATION (G/DL) BY AUTOMATED 32.7 g/dL Normal 32.0-35.0 [facility] Comment on above: Performed By: #### [id number] ####[facility] ITAL LAB (BEAKER)[address] [place] [address] Hematocrit (Bld) [Volume fraction] 41.6 % Normal 39.0-55.0 [facility] Comment on above: Performed By: #### [id number] ####[facility] ITAL LAB (BEAKER)[address] [place] [address] Hemoglobin (Bld) [Mass/Vol] 13.6 g/dL Normal 13.0-17.0 [facility] Comment on above: Performed By: #### [id number] ####[facility] ITAL LAB (BEAKER)[address] [place] [address] Immature granulocytes (Bld) [#/Vol] 0.03 10*3/uL Normal 0.00-0.20 [facility] Comment on above: Performed By: #### [id number] ####[facility] HOSP ITAL LAB (BEAKER)[address] [place] [address] Immature granulocytes/100 WBC (Bld) 0.3 % Normal 0.0-1.0 [facility] Comment on above: Performed By: #### [id number] ####[facility] HOSP ITAL LAB (BEAKER)[address] [place] [address] Lymphocytes (Bld) [#/Vol] 0.53 10*3/uL Low 1.20-4.00 [facility] Comment on above: Performed By: #### [id number] ####[facility] HOSP ITAL LAB (BEAKER)[address] [place] [address] Lymphocytes/100 WBC (Bld) 5.9 % Low 20.0-45.0 [facility] Comment on above: Performed By: #### [id number] ####[facility]OSP ITAL LAB (BEAKER)[address] [place] [address] MCH (RBC) [Entitic mass] 28.5 pg Normal 27.0-33.0 [facility] Comment on above: Performed By: #### [id number] ####[facility]OS[facility] ITAL LAB (BEAKER)[address] [place] [address] MCV (RBC) [Entitic vol] 87.0 fL Normal 82.0-98.0 [facility] Comment on above: Performed By: #### [id number] ####[facility]OSP ITAL LAB (BEAKER)[address] [place] [address] Monocytes (Bld) [#/Vol] 0.90 10*3/uL Normal 0.10-1.00 [facility] Comment on above: Performed By: #### [id number] ####[facility] HOSP ITAL LAB (BEAKER)[address] [place] [address] Monocytes/100 WBC (Bld) 10.1 % Normal 5.0-12.0 [facility] Comment on above: Performed By: #### [id number] ####[facility] HOSP ITAL LAB (BEAKER)[address] [place] [address] Neutrophils (Bld) [#/Vol] 7.34 10*3/uL Normal 1.60-7.60 [facility] Comment on above: Performed By: #### [id number] ####[facility] HOSP ITAL LAB (BEAKER)[address] [place] [address] Neutrophils/100 WBC (Bld) 82.4 % High 40.0-72.0 [facility] Comment on above: Performed By: #### [id number] ####[facility] HOSP ITAL LAB (BEAKER)[address] [place] [address] NRBC (PER 100 WBCS) BY AUTOMATED COUNT 0.0 % Normal 0 [facility] Comment on above: Performed By: #### [id number] ####[facility] HOSP ITAL LAB (BEAKER)[address] [place] [address] PLATELETS (10*3/UL) IN BLOOD AUTOMATED COUNT 224 10*3/uL Normal 150-400 [facility] Comment on above: Performed By: #### [id number] ####[facility] HOSP ITAL LAB (BEAKER)[address] [place] [address] RBC (Bld) [#/Vol] 4.78 10*6/uL Normal 4.20-5.70 [facility] Comment on above: Performed By: #### [id number] ####[facility] HOSP ITAL LAB (BEAKER)[address] [place] [address] WBC (Bld) [#/Vol] 8.91 10*3/uL Normal 4.00-10.60 [facility] Comment on above: Performed By: #### [id number] ####[facility] HOSP ITAL LAB (BEAKER)[address] [place] [address] COMPREHENSIVE METABOLIC PANE Jayden 06-05-2023 Albumin [Mass/Vol] 4.4 g/dL Normal 3.5-5.7 [facility] Comment on above: Performed By: #### [id number] ####[facility]OSP[facility] AL LAB (BEAKER)[address] [place] [address] ALP [Catalytic activity/Vol] 216 U/L High 34-104 [facility] Comment on above: Performed By: #### [id number] ####[facility]OSP[facility] AL LAB (BEAKER)[address] [place] [address] ALT [Catalytic activity/Vol] 79 U/L High 7-52 [facility] Comment on above: Performed By: #### [id number] ####[facility]OSP[facility] AL LAB (BEAKER)[address] [place] [address] Anion gap [Moles/Vol] 17 mmol/L Normal 7-20 [facility] Comment on above: Performed By: #### [id number] ####[facility]OSP[facility] AL LAB (BEAKER)[address] [place] [address] AST [Catalytic activity/Vol] 67 U/L High 13-39 [facility] Comment on above: Performed By: #### [id number] ####[facility]OSP[facility] AL LAB (BEAKER)[address] [place] [address] Bilirubin [Mass/Vol] 0.7 mg/dL Normal 0.3-1.0 [facility] Comment on above: Performed By: #### [id number] ####[facility]OSPIT AL LAB (BEAKER)[address] [place] [address] Calcium [Mass/Vol] 9.6 mg/dL Normal 8.6-10.3 [facility] Comment on above: Performed By: #### [id number] ####[facility]OS[facility] AL LAB (BEAKER)[address] [place] [address] Chloride [Moles/Vol] 101 mmol/L Normal 98-107 [facility] Comment on above: Performed By: #### [id number] ####[facility] AL LAB (BEAKER)[address] [place] [address] CO2 [Moles/Vol] 18 mmol/L Low 21-31 [facility] Comment on above: Performed By: #### [id number] ####[facility] AL LAB (BEAKER)[address] [place] [address] Creatinine [Mass/Vol] 1.29 mg/dL Normal 0.70-1.30 [facility] Comment on above: Performed By: #### [id number] ####[facility] ([facility])[address] [place] [address] GLOMERULAR FILTRATION RATE ML/MIN/1.73 SQ M.PREDICTED 60.4 mL/min/1.73m*2 Normal >60.0 [facility] Comment on above: Result Comment: The [facility]???s estimated glomerular filtration rate (eGFR) will no longer include consideration of race in its calculation. The [employer]???s eGFR Task Force developed new recommendations for the estimation of the glomerular filtration rate in the [place] They recommend immediate implementation of the new equation refit without the race variable in all laboratories because the calculation does not include race. In addition to not including race in the calculation and reporting, it included diversity in its development, and has acceptable performance characteristics and potential consequences that do not disproportionately affect any one group of individuals. Performed By: #### L [id number] ####[facility] ([facility])[address] [place] [address] Glucose [Mass/Vol] 156 mg/dL High 70-100 [facility] Comment on above: Performed By: #### [id number] ####[facility] ([facility])[address] [place] [address] Potassium [Moles/Vol] 4.3 mmol/L Normal 3.5-5.1 [facility] Comment on above: Performed By: #### [id number] ####[facility] LAB (BEAKER)[address] [place] [address] Protein [Mass/Vol] 7.2 g/dL Normal 6.0-8.3 [facility] Comment on above: Performed By: #### [id number] ####[facility] ([facility] [place] [address] Sodium [Moles/Vol] 132 mmol/L Low 136-145 [facility] Comment on above: Performed By: #### [id number] ####[facility] [place] [address] Urea nitrogen [Mass/Vol] 26 mg/dL High 7-25 [facility] Comment on above: Performed By: #### [id number] ####[facility]OSP[facility] AL LAB (BEAKER)[address] [place] [address] UREA NITROGEN/CREATIN INE (MASS RATIO) IN SER/PLAS 20.[address] [facility] Comment on above: Performed By: #### [id number] ####[facility]OSP[facility] AL LAB (BEAKER)[address] [place] [address] CONSULTon 06-05-[address] [facility] EDNURSon 06-05-[address] [facility] EDPROVon 06-05-[address] [facility] EDPROV Invalid Interpretation Code [facility] HPon 06-05-[address] [facility] LACTIC ACID WITH 4 HOUR REFL EXon 06-05-2023 LACTATE (MMOL/L) IN SER/PLAS 1.7 mmol/L Normal 0.5-2.2 [facility] Comment on above: Performed By: #### [id number] ####[facility] HOS PITAL LAB (BEAKER)[address] [place] [address] LACTATE (MMOL/L) IN SER/PLAS 2.3 mmol/L High 0.5-2.2 [facility] Comment on above: Performed By: #### [id number] ####[facility] HOS PITAL LAB (BEAKER)[address] [place] [address] LIPID PANELon 06-05-2023 CHOL/HDL 2.7 mg/dL Normal [facility] Comment on above: Performed By: #### [id number] ####[facility] AL LAB (BEAKER)[address] [place] [address] Cholesterol [Mass/Vol] 109 mg/dL Low 120-200 [facility] Comment on above: Performed By: #### [id number] ####[facility]OSP[facility] AL LAB (BEAKER)[address] [place] [address] Magnesium [Mass/Vol] 67 mg/dL Normal 40-149 [facility] Comment on above: Result Comment: TRIGLYCERIDE REFERENCE R ZORAN:20 YEARS AND OLDER CARDIOVASCULAR RISKLESS THAN 150 mg/dL LOW [id number] TO 199 mg/dL BORDERLINE [id number] mg/dL AND GREATER HIGH RISK Performed By: #### L [id number] ####[facility]PITAL LAB (BEAKER)[address] [facility] [place] [address] Magnesium [Mass/Vol] 56 mg/dL Normal 0-160 [facility] Comment on above: Performed By: #### [id number] ####[facility] HOSPIT AL LAB (BEAKER)[address] [facility] [place] [address] Magnesium [Mass/Vol] 40 mg/dL Normal 23-92 [facility] Comment on above: Performed By: #### [id number] ####[facility] AL LAB (BEAKER)[address] [facility] [place] [address] NON HDL CHOL. (LDL+VLDL) [address] [facility] Comment on above: Performed By: #### [id number] ####[facility] AL LAB (BEAKER)[address] [facility] [place] [address] TOTAL VLDL-C 13 mg/dL Normal 0-40 [facility] Comment on above: Performed By: #### [id number] ####[facility]OSP[facility] AL LAB (BEAKER)[address] [facility] [place] [address] MAGNESIUMon 06-05-2023 Magnesium [Mass/Vol] 2.0 mg/dL Normal 1.9-2.7 [facility] Comment on above: Performed By: #### [id number] ####[facility] (BEAKER)[address] [facility] [place] [address] PLATELET COUNTon 06-05-2023 PLATELETS (10*3/UL) IN BLOOD AUTOMATED COUNT 204 10*3/uL Normal 150-400 [facility] Comment on above: Performed By: #### [id number] ####[facility] (BEAKER)[address] [facility] [place] [address] STREP PNEUMONIAE ANTIGEN, UR INEon 06-05-2023 STREPTOCOCCUS PNEUMONIAE AG PRESENCE IN URINE Negative Normal Negative [facility] Comment on above: Performed By: #### [id number] ####[facility] ([facility])[address] [facility] [place] [address] TROPONIN Ion 06-05-2023 Troponin I.cardiac [Mass/Vol] 0.14 ng/mL Critically high 0.00-0.04 [facility] Comment on above: Result Comment: M-PREVIOUS CRITICAL RESU LTPrevious result verified on 06/05/2023 0833 on specimen/case [id number] called with component Troponin I for procedure Troponin I with value 0.13 ng/mL. Performed By: #### L [id number] ####[facility] ([facility])[address] [place] [address] Troponin I.cardiac [Mass/Vol] 0.13 ng/mL Critically high 0.00-0.04 [facility] Comment on above: Result Comment: Previous result verified on 06/05/2023 0245 on specimen/case [id number] called with component Troponin I for procedure Troponin I with value 0.13 ng/mL. Performed By: #### L [id number] ####[facility] ([facility])[address] [facility] [place] [address] Troponin I.cardiac [Mass/Vol] 0.13 ng/mL Critically high 0.00-0.04 [facility] Comment on above: Result Comment: M-TROPONIN INITIAL CRITI ANNA HIGH; RESPUN AND RETESTED Performed By: #### L [id number] ####[facility] ([facility])[address] [facility] [place] [address] URINALYSIS MICROSCOPIC WITH REFLEX CULTUREon 06-05-2023 CASTS IN URINE Present Abnormal None Seen [facility] Comment on above: Performed By: #### [id number] ####[facility] ([facility])[address] [facility] [place] [address] CRYSTALS IN URINE Normal [facility] Comment on above: Performed By: #### [id number] ####[facility] ([facility])[address] [place] [address] GRANULAR CASTS (#/LPF) IN URINE 4 LPF High <1 [facility] Comment on above: Result Comment: Checked by manual micros copy. Performed By: #### L [id number] ####[facility]PITAL LAB (BEAKER)[address] [place] [address] MUCUS (#/HPF) IN URINE SEDIMENT Occasional Normal None Seen, Occasional, Few [facility] Comment on above: Performed By: #### [id number] ####[facility] HOS[facility] ITAL LAB (BEAKER)[address] [place] [address] OTHER MICROSCOPIC ELEMENTS Normal [facility] Comment on above: Performed By: #### [id number] ####[facility]OS[facility] ITAL LAB (BEAKER)[address] [place] [address] RBC (#/HPF) IN URINE SEDIMENT 3-[address] [facility] Comment on above: Performed By: #### [id number] ####[facility] ITAL LAB (BEAKER)[address] [place] [address] SQUAMOUS EPITHELIAL CELLS (#/HPF) IN URINE SEDIMENT None Seen Normal None Seen, Occasional [facility] Comment on above: Performed By: #### [id number] ####[facility] HOS[facility] ITAL LAB (BEAKER)[address] [place] [address] WBC (LEUKOCYTE) (#/HPF) IN URINE SEDIMENT 6-[address] [facility] Comment on above: Performed By: #### [id number] ####[facility]OS[facility] ITAL LAB (BEAKER)[address] [place] [address] URINALYSIS WITH REFLEX CULTU REon 06-05-2023 BILIRUBIN, TOTAL PRESENCE IN URINE Negative Normal Negative [facility] Comment on above: Performed By: #### [id number] ####[facility]OS[facility] ITAL LAB (BEAKER)[address] [place] [address] Clarity (U) Slightly Cloudy Abnormal Clear [facility] Comment on above: Performed By: #### [id number] ####[facility] ITAL LAB (BEAKER)[address] [place] [address] Color (U) Yellow Normal Yellow [facility] Comment on above: Performed By: #### [id number] ####[facility] ITAL LAB (BEAKER)[address] [place] [address] Glucose (U) [Mass/Vol] mg/dL Abnormal Negative [facility] Comment on above: Performed By: #### [id number] ####[facility] ITAL LAB (BEAKER)[address] [place] [address] HEMOGLOBIN PRESENCE IN URINE Moderate Abnormal Negative [facility] Comment on above: Performed By: #### [id number] ####[facility] ITAL [facility] (BEAKER)[address] [place] [address] Ketones Ql (U) Negative Normal Negative [facility] Comment on above: Performed By: #### [id number] ####[facility] H[facility] ITAL LAB (BEAKER)[address] [place] [address] LEUKOCYTE ESTERASE PRESENCE IN URINE BY TEST STRIP Negative Normal Negative [facility] Comment on above: Performed By: #### [id number] ####[facility] ITAL LAB (BEAKER)[address] [place] [address] NITRITE PRESENCE IN URINE Negative Normal Negative [facility] Comment on above: Performed By: #### [id number] ####[facility] ITAL LAB (BEAKER)[address] [place] [address] pH (U) 5.0 [pH] Normal 5.0-8.0 [facility] Comment on above: Performed By: #### [id number] ####[facility] ITAL [facility] (BEAKER)[address] [place] [address] Protein (U) [Mass/Vol] 30 mg/dL Abnormal Negative [facility] Comment on above: Performed By: #### [id number] ####[facility] ITAL [facility] (BEAKER)[address] [place] [address] Specific gravity (U) [Rel density] 1.016 Normal 1.015-1.020 [facility] Comment on above: Performed By: #### [id number] ####[facility] HOSP ITAL LAB (BEAKER)[address] [place] [address] Lab - Other Lab [facility] - Other Lab Results [id number]#1.00OTGTIFF Normal [facility] Patient Handouton 02-18-2023 Patient Handout [id number]#1.00OTGTIFF Normal [facility] Patient Handouton 02-10-2023 Patient Handout [id number]#1.00OTGTIFF [facility] SYMPTOMATIC COVID-19 ANTIGEN on 02-24-2021 EUA Statement SEE BELOW Normal [facility] Comment on above: Result Comment: This test has not been F DA cleared or approved, but has been authorized by the FDA under an Emergency Use Authorization (EUA) for use by authorized laboratories certified under CLIA that meet the requirements to perform moderate or high complexity testing. This test has been authorized only for the detection of proteins from SARS-CoV-2, not for any other viruses or pathogens. The emergency use of this test is authorized for the duration of the declaration that circumstances exist justifying the authorization of emergency use of in vitro diagnostic tests for detection and/or diagnosis of Covid-19 under section 564(b)(1) of the Act, 21 U.S.C. 360bbb-3(b)(1), unless the declaration is terminated or authorization is revoked sooner. Performed By: #### C VDAGS #### [facility] [address] [address] Kenji Nieto SARS-CoV-2 (COVID-19) RNA LISSY+probe Ql (Unsp spec) Positive Invalid Interpretation Code NEGATIVE [facility] Comment on above: Performed By: #### CVDAGS #### [facility] [address] [place], [place] [address] Kenji Nieto Cardiovascular Lab Reporton 03-24-2018 Cardiovascular Lab Report [facility] Patient Name: Alan [facility] Lexie MR #: [id number] of Physician: Quyen Adame M.D.Medicine Service Date: 03/23/2018Division of Birthdate: 1955ardiology Room #: CCAdult CardiovascularServicesUniversit y [address] [place], [place] [address]Gslfk Fax Cardiovascular Laboratory ReportICD REPLACEMENT REPORTINDICATIONS FOR ICD REPLACEMENT: The patient is a 62-year-old gentlemanwho has history of dilated ischemic cardiomyopathy, who has an ICD inplace. The current generator is reached its end of life indicator and willrequire replacement.PROCEDURE: After written informed consent was obtained, he was brought tot pacemaker laboratory in the fasting state. The left subclavicularfossa over the site of the previous pulse generator was prepped and drapedin the usual manner. A 1% Xylocaine solution infiltrated for localanesthesia. Following initial sharp incision meticulous blunt dissectionwas employed to open the subfascial pocket wherein the previous device liewas removed, detached from its leads and connected to a new [employer] single chamber ICD of new Dynagen ICD. Because the size andshape of this device were significantly different than the previous one,the pocket had to be revised accordingly. Into the newly revised pocketwas placed the device. Via off field telemetry adequate pacing and sensingthresholds were obtained. The measured R-wave amplitude was 20.7 mV. Theimpedance was 546 ohms and the pacing threshold was 0.6 V at 0.5milliseconds pulse width. The shock impedance was 52 ohms. The pocket wasthen irrigated with an antibiotic solution. The fascia layer closed with acontinuous 2-0 Vicryl suture. The subdermal area with interrupted 3-0Biosyn sutures placed utilizing a buried knot technique and the skinsurface with Dermabond glue. The wound was dressed with a Telfa pad andTegaderm dressing. Sponge and needle counts were correct at the end of thecase and prior to the procedure, the patient received 1 g of intravenousvancomycin as antibiotic prophylaxis. Conscious sedation was maintainedthroughout the case with intravenous midazolam and fentanyl. He wasreturned to the holding area in stable hemodynamic condition.FINAL IMPRESSIONS:1. Removal and replacement of ICD system.2. Revision of pocket.3. Testing of the device.4. Conscious sedation.Electronically Signed by:Quyen Adame M.D. 04/15/2018 02:48 P Quyen Adame M.D.Date Dict: 03/23/2018/02:45 P/Quyen Adame M.D.Date Trans: 03/24/2018 07:31 [id number]: Mark Tam D.O. [address] [place] [address] Pinky sim [facility] [address] [facility] *MRSA/MSSA CULTUREon 018 *MRSA/MSSA CULTURE Clinical Report: (D) Specimen: NASAL SWAB Collected: 03/17/2018 09:49 Status: Final Last Updated: 03/18/2018 14:21 ISO (Final) No Methicillin Resistant Staphylococcus aureus Isolated (MRSA) ISO (Final) Methicillin Sensitive Staphylococcus aureus (MSSA) Normal [facility] Comment on above: Performed By: #### [id number] ####[facility] [place] [address], [facility] BASIC METABOLIC PANELon 02-27 Calcium mass conc 9.1 mg/dL Normal 8.6-10.[address] [facility] Comment on above: Performed By: #### [id number] ####[facility] [place] [address], [facility] Chloride molar conc 101 mmol/L Normal 98-[address] [facility] Comment on above: Performed By: #### [id number] ####[facility] [place] [address], [facility] CO2 molar conc 28 mmol/L Normal 21-[address] [facility] Comment on above: Performed By: #### [id number] ####[facility] [place] [address], [facility] Creatinine mass conc 0.91 mg/dL Normal 0.70-1.[address] [facility] Comment on above: Performed By: #### [id number] ####[address] [place] [address], [facility] GFR/1.73 sq M predicted among blacks MDRD vol rate/area (S/P/Bld) mL/min/{1.73_m2} Normal >[address] [facility] Comment on above: Performed By: #### [id number] ####[address] [place] [address], [facility] GFR/1.73 sq M predicted among non-blacks MDRD vol rate/area (S/P/Bld) mL/min/{1.73_m2} Normal >[address] [facility] Comment on above: Performed By: #### [id number] ####[address] [place] [address], [facility] Glucose mass conc 186 mg/dL High 70-[address] [facility] Comment on above: Performed By: #### [id number] ####[place] [address], [facility] Potassium molar conc 4.2 mmol/L Normal 3.5-5.[address] [facility] Comment on above: Performed By: #### [id number] ####[id number] [place] [address], [facility] Sodium molar conc 134 mmol/L Low 136-[address] [facility] Comment on above: Performed By: #### [id number] ####[address] [place] [address], [facility] Urea nitrogen mass conc 15 mg/dL Normal 7-[address] [facility] Comment on above: Performed By: #### 07120 ####[address] CBC COMPLETE BLOOD COUNTon 0 03-17-2018 Erythrocyte distribution width Auto Ratio (RBC) 13.5 % Normal 11.5-15.[address] [facility] Comment on above: Performed By: #### [id number] ####[facility] Hematocrit Auto Volume Fraction (Bld) 44.6 % Normal 39.0-50.[address] [facility] Comment on above: Performed By: #### 35245 ####[facility] [facility] Hemoglobin mass conc (Bld) 14.6 g/dL Normal 13.0-17.[address] [facility] Comment on above: Performed By: #### [id number] ####[facility] [facility] MCH Auto Entitic mass (RBC) 28.8 pg Normal 27.0-33.[address] [facility] Comment on above: Performed By: #### [id number] ####[facility] [facility] MCHC Auto mass conc (RBC) 32.7 g/dL Normal 32.0-35.[address] [facility] Comment on above: Performed By: #### [id number] ####[facility] [facility] MCV Auto Entitic volume (RBC) 88.0 fL Normal 82.0-98.[address] [facility] Comment on above: Performed By: #### [id number] ####[facility] [facility] Nucleated RBC/100 WBC Ratio (Bld) 0 % Normal 0-[address] [facility] Comment on above: Performed By: #### 12096 ####[facility] [place] [address], [place] PLAT [address] 243 10*3/uL Normal 150-[address] [facility] Comment on above: Performed By: #### [id number] ####[facility] [facility] RBC Auto #/vol (Bld) 5.07 10*6/uL Normal 4.20-5.[address] [facility] Comment on above: Performed By: #### [id number] ####[facility] [facility] WBC Auto #/vol (Bld) 7.94 10*3/uL Normal 4.00-10.[address] [facility] Comment on above: Performed By: #### [id number] ####[facility] Vital Signs Date Time Vital Sign Value Performing Clinician Faci lity 08-09-2023 16:54-0500 Body height 176.8 cm Shaikh Lily BARRAGAN Work Phone: [facility] 08-09-2023 16:54-0500 Body mass index (BMI) [Ratio] 26.13 kg/m2 Shaikh Lily BARRAGAN Work Phone: [facility] 08-09-2023 16:54-0500 Body weight 81.65 kg Shaikh Lily BARRAGAN Work Phone: [facility] 08-09-2023 16:54-0500 Diastolic blood pressure 60 mm[Hg] Shaikh Lily BARRAGAN Work Phone: [facility] 08-09-2023 16:54-0500 Heart rate 68 /min Shaikh Lily BARRAGAN Work Phone: [facility] 08-09-2023 16:54-0500 SaO2% (BldA) [Mass fraction] 98 % Shaikh Lily BARRAGAN Work Phone: [facility] 08-09-2023 16:54-0500 Systolic blood pressure 80 mm[Hg] Shaikh Lily BARRAGAN Work Phone: [facility] Encounters Encounter Date Encounter Type Care Provider Facility Start: 08-24-2023 End: 08-24-[address] [facility] Start: 08-20-2023 Evaluation and manag ement of inpatient YUSUF DAVEY DIXON [facility] Start: 08-17-2023 ambulatory MARK TAM [facility] Start: 08-16-2023 End: 08-17-2023 ambulatory MARK TAM Facility:[facility] Start: 08-16-2023 Evaluation and manag ement of inpatient [facility] Start: 08-15-2023 Evaluation and manag ement of inpatient [facility] Start: 08-14-2023 Evaluation and manag ement of inpatient [facility] Start: 08-13-2023 Evaluation and manag ement of inpatient [facility] Start: 08-13-2023 Evaluation and manag ement of inpatient [facility] Start: 08-13-2023 ambulatory MARK Baird [facility] Start: 08-13-2023 Evaluation and manag ement of inpatient [facility] Start: 08-12-2023 Evaluation and manag ement of inpatient [facility] Start: 08-12-2023 ambulatory MARK Baird [facility] Start: 08-11-2023 Evaluation and manag ement of inpatient TOMÁS RICHARD [facility] Start: 08-11-2023 Emergency department patient visit LACEY LOYOLA [facility] Start: 08-11-2023 End: 08-21-2023 Evaluation and management of inpatient [facility] Start: 08-10-2023 Clinisync Result Encounter Shaikh Lily BARRAGAN Work Phone: [facility] Unsolicited Start: 08-10-2023 Clinisync Result Encounter Shaikh Lily BARRAGAN Work Phone: [facility] Unsolicited Start: 08-10-2023 ambulatory [facility] Start: 08-09-2023 End: 08-09-2023 ambulatory SHAIKH LILY Not Available Start: 08-09-2023 End: 08-09-2023 Office outpatient new 60 minutes Shaikh Lily BARRAGAN Work Phone: [facility] Comment on above: Essential hypertensi on ([facility]/HCC) (Primary Dx); HFrEF (heart failure with reduced ejection fraction) ([facility]); Coronary artery disease involving united auburn coronary artery of united [place]uburn heart without angina pectoris ([facility]); Hyperlipidemia, unspecified hyperlipidemia type ([facility]); Other hyperlipidemia ([facility]); COPD mixed type ([facility]); Type 2 diabetes mellitus without complication, without long-term current use of insulin ([facility]); Generalized muscle ache; Encounter to establish care with new doctor Start: 08-09-2023 Gema Bautista MD Work Phone: [facility] Start: 08-09-2023 Gema Bautista MD Work Phone: [facility] Start: 08-06-2023 ambulatory [facility] Start: 08-05-2023 ambulatory [facility] Start: 08-03-2023 ambulatory [facility] Start: 07-30-2023 ambulatory [facility] Start: 07-29-2023 ambulatory [facility] Start: 07-27-2023 End: 07-29-2023 Clinical Support [facility] Cardiac Rehab Therapist 1 [facility] Comment on above: Acute myocardial inf arction, subendocardial infarction, initial episode of care ([facility]-HCC) Start: 07-23-2023 End: 07-29-2023 Clinical Support [facility] Cardiac Rehab Therapist 1 [facility] Comment on above: Acute myocardial inf arction, subendocardial infarction, initial episode of care ([facility]) Start: 07-22-2023 End: 07-29-2023 Clinical Support [facility] Cardiac Rehab Therapist 1 [facility] Comment on above: Arrived Start: 07-21-2023 End: 07-22-2023 ambulatory [facility] Start: 07-20-2023 End: 07-29-2023 ambulatory [facility] Start: 07-19-2023 End: 07-20-2023 ambulatory Zeeshan Carmichael MD Facility:[facility] Start: 07-16-2023 End: 07-29-2023 ambulatory [facility] Start: 07-15-2023 End: 07-29-2023 Clinical Support [facility] Cardiac Rehab Therapist 1 [facility] Comment on above: Acute myocardial inf arction, subendocardial infarction, initial episode of care ([facility]) Start: 07-13-2023 End: 07-29-2023 Clinical Support [facility] Cardiac Rehab Therapist 1 [facility] Comment on above: Acute myocardial inf arction, subendocardial infarction, initial episode of care ([facility]) Start: 07-09-2023 End: 07-29-2023 ambulatory [facility] Start: 07-08-2023 End: 07-29-2023 ambulatory [facility] Start: 06-11-2023 End: 06-11-[address] [facility] Start: 06-08-2023 Evaluation and manag ement of inpatient RAVEN [facility] Start: 06-07-2023 Evaluation and manag ement of inpatient [facility] Start: 06-07-2023 Evaluation and manag ement of inpatient TRISH JACKSON [facility] Start: 06-07-2023 Evaluation and manag ement of inpatient [facility] Start: 06-06-2023 Evaluation and manag ement of inpatient TRISH JACKSON [facility] Start: 06-05-2023 [facility] 06-05-2023 Emergency department patient visit LETICIA MCCOY [facility] Start: 06-05-2023 End: 06-08-2023 Evaluation and management of inpatient BRI JAVIER [facility] Start: 06-01-2023 End: 06-02-2023 ambulatory Zeeshan Carmichael MD Facility:[facility] Start: 05-27-2023 End: 05-28-2023 ambulatory MARK P HOUSE Facility:[facility] Start: 05-10-2023 End: 05-11-2023 ambulatory MARK P HOUSE Facility:[facility] Start: 03-11-2023 End: 03-12-2023 ambulatory MARK P HOUSE Facility:[facility] Start: 02-11-2023 End: 02-12-2023 ambulatory MARK P HOUSE Facility:[facility] Start: 09-03-[address] [facility] Start: 02-24-2021 End: 02-24-2021 ambulatory CARSON ASHLEY Facility: Start: 03-23-2018 End: 03-24-2018 Patient encounter QUYEN ADAME Facility:[facility] Procedures Date Procedure Procedure Detail Performing Clinician Start: 08-24-2023 Follow-up visit BRI BEBE HMOOD Start: 08-10-2023 ALL CBC WITH AUTO DIFF Shaikh Lily BARRAGAN Work Phone: Start: 07-15-2023 Follow-up visit BRI BEBE HMOOD Start: 06-11-2023 Follow-up visit BRI BEBE HMOOD Start: 09-03-2022 Follow-up visit BRI MA HMOOD Plan of Treatment Date Care Activity Detail Author Start: 06-04-2024 Adult BMI Screening Adult BMI Screen ing [facility] Start: 06-04-2024 Tobacco Screening Tobacco Screening [facility] Start: 10-14-2023 End: 10-14-2023 Clinical Support 10/14/2023 8:00 AM EDT Clinical Support [facility] [address] [place] [address] [facility] Start: 10-12-2023 End: 10-12-2023 Clinical Support 10/12/2023 8:00 AM EDT Clinical Support [facility] [address] [place] [address] [facility] Start: 10-08-2023 End: 10-08-2023 Clinical Support 10/08/2023 8:00 AM EDT Clinical Support [facility] [address] [place] [address] [facility] Start: 10-07-2023 End: 10-07-2023 Clinical Support 10/07/2023 8:00 AM EDT Clinical Support [facility] [address] [place] [address] [facility] Start: 10-05-2023 End: 10-05-2023 Clinical Support 10/05/2023 8:00 AM EDT Clinical Support [facility] [address] [place] [address] [facility] Start: 10-01-2023 End: 10-01-2023 Clinical Support 10/01/2023 8:00 AM EDT Clinical Support [facility] [address] [place] [address] [facility] Start: 09-30-2023 End: 09-30-2023 Clinical Support 09/30/2023 8:00 AM EDT Clinical Support [facility] [address] [place] [address] [facility] Start: 09-28-2023 End: 09-28-2023 Clinical Support 09/28/2023 8:00 AM EDT Clinical Support [facility] [address] [place] [address] [facility] Start: 09-24-2023 End: 09-24-2023 Clinical Support 09/24/2023 8:00 AM EDT Clinical Support [facility] [address] [place] [address] [facility] Start: 09-23-2023 End: 09-23-2023 Clinical Support 09/23/2023 8:00 AM EDT Clinical Support [facility] [address] [place] [address] [facility] Start: 09-21-2023 End: 09-21-2023 Clinical Support 09/21/2023 8:00 AM EDT Clinical Support [facility] [address] [place] [address] [facility] Start: 09-17-2023 End: 09-17-2023 Clinical Support 09/17/2023 8:00 AM EDT Clinical Support [facility] [address] [place] [address] [facility] Start: 09-16-2023 End: 09-16-2023 Clinical Support 09/16/2023 8:00 AM EDT Clinical Support [facility] [address] [place] [address] [facility] Start: 09-14-2023 End: 09-14-2023 Clinical Support 09/14/2023 8:00 AM EDT Clinical Support [facility] [address] [place] [address] [facility] Start: 09-10-2023 End: 09-10-2023 Clinical Support 09/10/2023 8:00 AM EDT Clinical Support [facility] [address] [place] [address] [facility] Start: 09-09-2023 End: 09-09-2023 Clinical Support 09/09/2023 8:00 AM EDT Clinical Support [facility] [address] [place] [address], [place] [address] [facility] Start: 09-07-2023 End: 09-07-2023 Clinical Support [facility] Start: 09-03-2023 End: 09-03-2023 Clinical Support 09/03/2023 8:00 AM EST Clinical Support [facility] [address] [place] [address], [place] [address] [facility] Start: 09-02-2023 End: 09-02-2023 Clinical Support 09/02/2023 8:00 AM EST Clinical Support [facility] [address] [place] [address], [place] [address] [facility] Start: 08-31-2023 End: 08-31-2023 Clinical Support 08/31/2023 8:00 AM EST Clinical Support [facility] [address] [place] [address], [place] [address] [facility] Start: 08-27-2023 End: 08-27-2023 Clinical Support 08/27/2023 8:00 AM EST Clinical Support [facility] [address] [place] [address], [place] [address] [facility] Start: 08-26-2023 End: 08-26-2023 Clinical Support 08/26/2023 8:00 AM EST Clinical Support [facility] [address] [place] [address], [place] [address] [facility] Start: 08-24-2023 End: 08-24-2023 Clinical Support 08/24/2023 8:00 AM EST Clinical Support [facility] [address] [place] [address], [place] [address] [facility] Start: 08-20-2023 End: 08-20-2023 Clinical Support 08/20/2023 8:00 AM EST Clinical Support [facility] [address] [place] [address], [place] [address] [facility] Start: 08-19-2023 End: 08-19-2023 Clinical Support 08/19/2023 8:00 AM EST Clinical Support [facility] [address] [place] [address], [place] [address] [facility] Start: 08-17-2023 End: 08-17-2023 Clinical Support 08/17/2023 8:00 AM EST Clinical Support [facility] [address] [place] [address], [place] [address] [facility] Start: 08-13-2023 End: 08-13-2023 Clinical Support 08/13/2023 8:00 AM EST Clinical Support [facility] [address] [place] [address], [place] [address] [facility] Start: 08-12-2023 End: 08-12-2023 Clinical Support 08/12/2023 8:00 AM EST Clinical Support [facility] [address] [place] [address], [place] [address] [facility] Start: 08-10-2023 End: 08-10-2023 Clinical Support 08/10/2023 8:00 AM EST Clinical Support [facility] [place] [address] [facility] Start: 08-09-2023 End: 08-09-2023 Patient encounter procedure 08/09/2023 4:30 PM EST Office Visit [facility] [address] [place] [address] Shaikh Bautista MD [address] [place] [address] Arrived [facility] Comment on above: Arrived Start: 08-09-2023 End: 08-09-2024 Albumin, urine, random Albumin, urine, random Lab Routine Type 2 diabetes mellitus without complication, without long-term current use of insulin ([facility]/HCC) Expected: 08/09/2023 (Approximate), Expires: 08/09/2024 [facility] Comment on above: Expected: 08/09/2023 (Approximate), Expires: 08/09/2024 Start: 08-09-2023 End: 08-09-2024 CBC W Auto Differential panel - Blood CBC and differential Lab Routine Type 2 diabetes mellitus without complication, without long-term current use of insulin (CMS/HCC) Expected: 08/09/2023 (Approximate), Expires: 08/09/2024 [facility] Comment on above: Expected: 08/09/2023 (Approximate), Expires: 08/09/2024 Start: 08-09-2023 End: 08-09-2024 Comprehensive metabolic 2000 panel - Serum or Plasma Comprehensive metabolic panel Lab Routine Type 2 diabetes mellitus without complication, without long-term current use of insulin (CMS/HCC) Expected: 08/09/2023 (Approximate), Expires: 08/09/2024 [facility] Comment on above: Expected: 08/09/2023 (Approximate), Expires: 08/09/2024 Start: 08-09-2023 End: 08-09-2024 Creatine kinase [Enzymatic activity/volume] in Serum or Plasma CK Lab Routine Generalized muscle ache Expected: 08/09/2023 (Approximate), Expires: 08/09/2024 [facility] Work Phone: Comment on above: Expected: 08/09/2023 (Approximate), Expires: 08/09/2024 Start: 08-09-2023 End: 08-09-2024 Creatinine [Mass/volume] in Urine Creatinine, urine, random Lab Routine Type 2 diabetes mellitus without complication, without long-term current use of insulin ([facility]) Expected: 08/09/2023 (Approximate), Expires: 08/09/2024 [facility] Comment on above: Expected: 08/09/2023 (Approximate), Expires: 08/09/2024 Start: 08-09-2023 End: 08-09-2024 Hemoglobin A1c measurement Hemoglobin A1c Lab Routine Type 2 diabetes mellitus without complication, without long-term current use of insulin ([facility]) Expected: 08/09/2023 (Approximate), Expires: 08/09/2024 [facility] Comment on above: Expected: 08/09/2023 (Approximate), Expires: 08/09/2024 Start: 08-09-2023 End: 08-09-2024 Lipid 1996 panel - Serum or Plasma Lipid panel Lab Routine Hyperlipidemia, unspecified hyperlipidemia type ([facility]/HCC) Expected: 08/09/2023 (Approximate), Expires: 08/09/2024 [facility] Comment on above: Expected: 08/09/2023 (Approximate), Expires: 08/09/2024 Start: 08-06-2023 End: 08-06-2023 Clinical Support 08/06/2023 8:00 AM EST Clinical Support [facility] [address] [place] [phone] [facility] Start: 08-05-2023 End: 08-05-2023 Clinical Support 08/05/2023 8:00 AM EST Clinical Support [facility] [address] [place] [phone] [facility] Start: 08-03-2023 End: 08-03-2023 Clinical Support 08/03/2023 8:00 AM EST Clinical Support [facility] [address] [place] [address], [place] [phone] [facility] Start: 07-30-2023 End: 07-30-2023 Clinical Support 07/30/2023 8:00 AM EST Clinical Support [facility] [address] [place] [address], [place] [phone] [facility] Start: 07-29-2023 End: 07-29-2023 Clinical Support 07/29/2023 8:00 AM EST Clinical Support [facility] [address] [place] [address], [place] [phone] [facility] Start: 07-27-2023 End: 07-27-2023 Clinical Support 07/27/2023 8:00 AM EST Clinical Support [facility] [address] [place] [address], [place] [phone] [facility] Start: 07-23-2023 End: 07-23-2023 Clinical Support 07/23/2023 8:00 AM EST Clinical Support [facility] [address] [place] [address], [place] [phone] [facility] Start: 07-22-2023 End: 07-22-2023 Clinical Support 07/22/2023 8:00 AM EST Clinical Support [facility] [address] [place] [address], [place] [phone] [facility] Start: 07-20-2023 End: 07-20-2023 Clinical Support 07/20/2023 8:00 AM EST Clinical Support [facility] [address] [place] [address] [facility] Start: 07-16-2023 End: 07-16-2023 Clinical Support 07/16/2023 8:00 AM EST Clinical Support [facility] [address] [place] [phone] [facility] Start: 07-15-2023 End: 07-15-2023 Clinical Support 07/15/2023 8:00 AM EST Clinical Support [facility] [address] [place] [phone] [facility] Start: 02-26-2023 Influenza vaccination [facility] Start: 2020 Fall Risk Screening Fall Risk Screen ing [facility] Start: 2005 Administration of varicella zoster vaccine Zoster (Shingles) Vaccine (1 of 2) [facility] Start: 1974 DTaP,Tdap and Td Vac cines (1 - Tdap) DTaP,Tdap and Td Vaccines (1 - Tdap) [facility] Start: 1974 Urine screening for protein Diabetes: Urine Protein Screening [facility] Start: 1973 Adult BMI Follow Up Plan Adult BMI F ollow Up Plan [facility] Start: 1967 Depression Screening Depression Scre ening [facility] Start: 1965 Glaucoma screening Diabetes: R etinopathy Screening [facility] Start: 1961 Pneumococcal Vaccine : 65+ Years (1 - PCV) Pneumococcal Vaccine: 65+ Years (1 - PCV) [facility] Start: 1955 Hemoglobin A1c measurement Diabetes: Hemoglobin A1C [facility] Start: 1955 Medicare Annual Well ness (AWV) Medicare Annual Wellness (AWV) [facility] Start: 1955 Medicare Annual Well ness Visit Medicare Annual Wellness Visit [facility] Start: 1955 Screening for malign ant neoplasm of colon [facility] CARDIOPULMONARY REHABILITATION CARDIOPULMONARY REHABILITATION Cardiac Services Ordered: 07/13/2023 [facility] Comment on above: Ordered: 07/13/2023 CARDIOPULMONARY REHABILITATION CARDIOPULMONARY REHABILITATION Cardiac Services Ordered: 07/15/2023 [facility] Comment on above: Ordered: 07/15/2023 CARDIOPULMONARY REHABILITATION CARDIOPULMONARY REHABILITATION Cardiac Services Ordered: 07/22/2023 [facility] Comment on above: Ordered: 07/22/2023 CARDIOPULMONARY REHABILITATION CARDIOPULMONARY REHABILITATION Cardiac Services Ordered: 07/23/2023 [facility] Comment on above: Ordered: 07/23/2023 CARDIOPULMONARY REHABILITATION CARDIOPULMONARY REHABILITATION Cardiac Services Ordered: 07/27/2023 [facility] Comment on above: Ordered: 07/27/2023 Payers Date Payer Category Payer Medicare [id number] 2021 Medicare [id number] 2019 Unknown [id number] 1998 Unknown [id number] 72 1959 Medicare [id number] 1959 Unknown [id number] 1955 Unknown [id number] 2.16.84 0.1.206338.3.579.2.593 1955 Unknown [id number] 2.16.8 40.1.383392.3.579.2.1286 1955 Unknown [id number] 2.16.8 40.1.804579.3.579.2.1286 1955 Unknown [id number] 2.16.84 0.1.241721.3.579.2.1259 1955 Unknown [id number] 2.16.8 40.1.900453.3.579.2.718 1955 Unknown [id number] 2.16.8 40.1.076181.3.579.2.718 1955 Unknown [id number] 2.16.8 40.1.962775.3.579.2.718 1955 Unknown [id number] 2.16.8 40.1.337316.3.579.2.718 1955 Unknown [id number] 2.16.8 40.1.525982.3.579.2.8 1955 Unknown [id number] 2.16.8 40.1.205578.3.579.2. 1955 Unknown [id number] 2.16.8 40.1.565237.3.579.2.8 1955 Unknown [id number] 2.16.8 40.1.940416.3.579.2.1285 1955 Unknown [id number] 2.16.8 40.1.516279.3.579.2.1285 1955 Unknown [id number] 2.16.8 40.1.128127.3.579.2.1285 1955 Unknown [id number] 2.16.8 40.1.588651.3.579.2.1286 1955 Unknown [id number] 2.16.8 40.1.072049.3.579.2.6 1955 Unknown [id number] 2.16.8 40.1.119614.3.579.2.1286 1955 Unknown [id number] 2.16.8 40.1.850361.3.579.2.1286 1955 Unknown [id number] 2.16.8 40.1.779809.3.579.2.128 1955 Unknown [id number] 2.16.8 40.1.990111.3.579.2.1286 1955 Unknown [id number] 2.16.8 40.1.900349.3.579.2.1286 1955 Unknown [id number] 2.16.8 40.1.690002.3.579.2.128 1955 Unknown [id number] 2.16.8 40.1.323551.3.579.2.1286 1955 Unknown [id number] 2.16.8 40.1.646805.3.579.2.1286 1955 Unknown [id number] 2.16.8 40.1.813328.3.579.2.1286 1955 Unknown [id number] 2.16.8 40.1.449066.3.579.2.1286 1955 Unknown [id number] 2.16.8 40.1.851006.3.579.2.1286 1955 Unknown [id number] 2.16.8 40.1.413202.3.579.2.1286 1955 Unknown [id number] 2.16.8 40.1.293943.3.579.2.1286 Unknown [id number] Social History Date Type Detail Facility Start: 05-10-2023 End: 08-09-2023 Tobacco smoking status MSIS Ex-smoker [facility] History of tobacco use Current smoker [facility] History of tobacco use Cigarette Smoker [facility] Start: 05-10-2023 End: 08-09-2023 Tobacco use and exposure Smokeless tobacco non-user [facility] Start: 06-04-2023 Alcohol intake Current drinke r of alcohol (finding) [facility] Start: 06-04-2023 End: 08-09-2023 History of Social function [facility] Start: 06-04-2023 End: 08-09-[address] [facility] Housing Instability Unknown [facility] Start: 05-10-2023 Alcohol Comment social [facility] Start: 1955 Sex Assigned At Not on file [facility] consumption [facility] Start: 08-09-2023 Alcohol intake Lifetime non-d jessy (finding) [facility] NEGATED: Highlighted rowStart: NINF History of tobacco use Passive smoker [facility] Clinical Notes 09-03-2022 to 08-24-2023 Shaikh Lily MD - 08/09/2023 6:12 PM Pamela Bautista MD - 08/09/2023 6:12 PM Pamela Bautista MD - 08/09/2023 6:11 PM Pamela Bautista MD - 08/09/2023 6:10 PM EST Note Date & Type Note Facility 08-24-2023 Note [facility] 08-24-2023 Note [facility] 08-21-2023 Note [facility] 08-21-2023 Note Declines home health care at this time. [facility] 08-21-2023 Note [facility] 08-20-2023 Note [facility] 08-20-2023 Note [facility] 08-20-2023 Note [facility] 08-19-2023 Note [facility] 08-19-2023 Note [facility] 08-19-2023 Note [facility] 08-18-2023 Note [facility] 08-18-2023 Note [facility] 08-17-2023 Note [facility] 08-17-2023 Note [facility] 08-17-2023 Note [facility] 08-17-2023 Note [facility] 08-16-2023 Note 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 Evelyn kimble [facility] 08-16-2023 Note [facility] 08-16-2023 Note [facility] 08-16-2023 Note [facility] 08-15-2023 Note [facility] 08-15-2023 Note [facility] 08-15-2023 Note [facility] 08-15-2023 Note [facility] 08-14-2023 Note [facility] 08-14-2023 Note [facility] 08-13-2023 Note [facility] 08-13-2023 Note [facility] 08-13-2023 Note [facility] 08-12-2023 Note [facility] 08-12-2023 Note [facility] 08-12-2023 Note [facility] 08-09-2023 History of Present illness Narrative Associated Problem(s): Encounter to establish care with new doctor New Patient, here to establish care. Reviewed medical, surgical and social hx. Reviewed available old records. Reviewed and updated medication list. Associated Problem(s): Other hyperlipidemia (CMS/HCC) On crestor 20 mg. Reports myalgias, aches and pains, proximal muscle weakness. Check CK. Asked patient to stop using crestor and see how he feels w/o it. Follow up appt in one month. If his symptoms are related to crestor, we might have to try a different statin or PSK9 inhibitor. Associated Problem(s): Diabetes (CMS/HCC) Reports Fsbs usually in 100s. No hypoglycemia. discontinue alogliptin. C/w jardiance. Check labs. Associated Problem(s): CAD (coronary artery disease) (CMS/HCC) S/p CABG and multiple stents placed afterwards. Recent Lexiscan 06/19 - no reversible ischemia. C/w ASA, Plavix. Associated Problem(s): Essential hypertension (CMS/HCC) Too tightly controlled and hypotensive since he was started on entresto. Denies orthostasis and denies any symptoms. I suspect his BP is low ever since he was started on entresto. discontinue imdur. C/w rest of his meds. RTC in one month. Will review home BP log and re-assess his medication regimen Associated Problem(s): HFrEF (heart failure with reduced ejection fraction) ([facility]) Hx of HFrEF - EF 20%, recent CHF exacerbation and admitted at [facility] for it. Patient on appropriate GDMT. Following [facility] cardiology. S/p AICD. Recent LEXISCAN - no evidence of ischemia. Subjective Patient ID: Giles Bolton is a 68 y.o. male who presents for Establish Care. New Patient, here to establish care. Reviewed medical, surgical and social hx. Reviewed available old records. Reviewed and updated medication list. Recent hospital admission at [facility] for acute on chronic systolic HF. Patient reports generalized aches and pain, primarily in his upper extremities and shoulders. Current Outpatient Medications on File Prior to Visit Medication Sig Dispense Refill aspirin 81 MG EC tablet Take 81 mg by mouth in the morning. clopidogrel (Plavix) 75 MG tablet Take 75 mg by mouth in the morning. empagliflozin (Jardiance) 25 MG Take 25 mg by mouth in the morning. metoprolol succinate XL (Toprol-XL) 50 MG 24 hr tablet Take 50 mg by mouth in the morning. rosuvastatin (Crestor) 20 MG tablet Take 20 mg by mouth in the morning. sacubitril-valsartan (Entresto) 24-26 MG tablet Take 1 tablet by mouth in the morning and 1 tablet before bedtime. spironolactone (Aldactone) 25 MG tablet Take 25 mg by mouth in the morning. tamsulosin (Flomax) 0.4 MG 24 hr capsule Take 0.4 mg by mouth in the morning. [DISCONTINUED] alogliptin (Nesina) 12.5 MG tablet Take 12.5 mg by mouth in the morning. [DISCONTINUED] diclofenac (Voltaren) 75 MG EC tablet Take 75 mg by mouth in the morning and 75 mg before bedtime. Do not crush, chew, or split.. [DISCONTINUED] isosorbide mononitrate ER (Imdur) 30 MG 24 hr tablet Take 30 mg by mouth in the morning. No current facility-administered medications on file prior to visit. Not on File Review of System All systems negative except as mentioned in HPI. Visit Vitals BP 80/60 (BP Location: Right arm, Patient Position: Sitting, BP Cuff Size: Adult) Pulse 68 Ht 5' 9.6 Wt 180 lb SpO2 98% BMI 26.13 kg/m Smoking Status Former BSA 2 m @LABRESULTS@ No images are attached to the encounter. Objective Comfortable, NAD. Physical Exam General: Comfortable, NAD HEENT: AT/NC. Resp: Normal RR, CTA b/l CVS: Normal HR, No mumur noted. GI: soft, non tender, non distended. Neuro: AAOX 3, moving all extremities. Psych: Calm, co operative, no HI/SI. Ext: left AKA Assessment/Plan Problem List Items Addressed This Visit RESOLVED: HLD (hyperlipidemia) ([facility]) Relevant Orders Lipid panel CAD (coronary artery disease) ([facility]) S/p CABG and multiple stents placed afterwards. Recent Lexiscan 06/19 - no reversible ischemia. C/w ASA, Plavix. COPD mixed type ([facility]) Diabetes ([facility]) Reports Fsbs usually in 100s. No hypoglycemia. discontinue alogliptin. C/w jardiance. Check labs. Relevant Orders CBC and differential Comprehensive metabolic panel Hemoglobin A1c Albumin, urine, random Creatinine, urine, random Essential hypertension ([facility]) - Primary Too tightly controlled and hypotensive since he was started on entresto. Denies orthostasis and denies any symptoms. I suspect his BP is low ever since he was started on entresto. discontinue imdur. C/w rest of his meds. RTC in one month. Will review home BP log and re-assess his medication regimen HFrEF (heart failure with reduced ejection fraction) ([facility]) Hx of HFrEF - EF 20%, recent CHF exacerbation and admitted at [facility] for it. Patient on appropriate GDMT. Following [facility] cardiology. S/p AICD. Recent LEXISCAN - no evidence of ischemia. Other hyperlipidemia ([facility]/HCC) On crestor 20 mg. Reports myalgias, aches and pains, proximal muscle weakness. Check CK. Asked patient to stop using crestor and see how he feels w/o it. Follow up appt in one month. If his symptoms are related to crestor, we might have to try a different statin or PSK9 inhibitor. Encounter to establish care with new doctor New Patient, here to establish care. Reviewed medical, surgical and social hx. Reviewed available old records. Reviewed and updated medication list. Other Visit Diagnoses Generalized muscle ache Relevant Orders CK Follow up in about 4 weeks (around 09/06/2023). documented in this encounter [facility] 07-15-2023 Note [facility] 06-11-2023 Note Device interrogation q [address] [facility] 06-11-2023 Note Currently stable [facility] 06-11-2023 Note [facility] 06-11-2023 Note HTN well controlled 107/74 Continue all medications BMP script sent with pt [facility] 06-11-2023 Note Continue toprol [facility] 06-11-2023 Note [facility] 06-11-2023 Note Patient here for [facility] for NSTEMI and CHF. Denies chest pain, SOB, and LE edema. Review of Systems Respiratory: Positive for cough. All other systems reviewed and are negative. [facility] 06-08-2023 Note [facility] 06-08-2023 Note [facility] 06-07-2023 Note [facility] 06-07-2023 Note This report has been cancelled. [facility] 06-07-2023 Note [facility] 06-07-2023 Note [facility] 06-06-2023 Note [facility] 06-06-2023 Note [facility] 09-03-2022 Note [facility] Evaluation note Diagnosis Acute myocardial infarction, subendocardial infarction, initial episode of care ([facility]) Acute myocardial infarction, subendocardial infarction, initial episode of care documented [facility] this encounter [facility] Diagnosis Acute myocardial infarction, subendocardial infarction, initial episode of care ([facility]) Acute myocardial infarction, subendocardial infarction, initial episode of care [facility] Diagnosis Acute myocardial infarction, subendocardial infarction, initial episode of care ([facility]) Acute myocardial infarction, subendocardial infarction, initial episode of care documented [facility] encounter [facility] Diagnosis Acute myocardial infarction, subendocardial infarction, initial episode of care ([facility]) Acute myocardial infarction, subendocardial infarction, initial episode of [facility] Diagnosis Essential hypertension ([facility] Primary Unspecified essential hypertension HFrEF (heart failure with reduced ejection fraction) ([facility]) Coronary artery disease involving [place] coronary artery of [place] heart without angina pectoris ([facility]) Hyperlipidemia, unspecified hyperlipidemia type ([facility]) COPD mixed type ([facility]) Type 2 diabetes mellitus without complication, without long-term current use of insulin ([facility]) Generalized muscle ache Encounter to establish care with new doctor documented in this encounter [facility]ructionsNot on filedocumented in this encounterPro[facility] SystemInstructionsNot on filedocumented in this encounterProSalem Regional [facility] SystemReason for visit Narrative* Consultation (Routine) - Pending Review Specialty Diagnoses / Procedures Referred By Contac t Referred To Contact Cardiac Rehabilitation Diagnoses Acute myocardial infarction, subendocardial infarction, initial episode of care ([facility]) Procedures Ambulatory referral to Cardiac Rehabilitation (Non[facility]) Marlys Estrada MD [address], [address] [place] [phone] Referral ID Status Reason Start Date Expiration Date V isits Requested Visits Authorized [id number] Pending Review 07/12/2023 07/11/2024 36 [phone] [facility] Summary Purpose Family History No Family History Records FoundNo Family History Records FoundNo Family History Records FoundNo Family History Records FoundNo Family History Records FoundNo Family History Records FoundNo Family History Records Found Advance Directives No Advanced Directives Records FoundNo Advanced Directives Records FoundNo Advanced Directives Records FoundNo Advanced Directives Records FoundNo Advanced Directives Records FoundNo Advanced Directives Records FoundNo Advanced Directives Records Found Additional Source Comments (unrecognized sect ion and content) No Status Records FoundNo Status Records FoundNo Status Records FoundNo Status Records FoundNo Status Records FoundNo Status Records FoundNo Status Records Found INFORMATION SOURCE (unrecogn ized section and content) DATE CREATED AUTHOR 04/25/2018 [facility] DATE CREATED AUTHOR AUTHOR'S ORGANIZ ATION 02/27/2021 [facility] DATE CREATED AUTHOR AUTHOR'S ORGANIZ ATION 07/24/2023 [facility] DATE CREATED AUTHOR AUTHOR'S ORGANIZ ATION 08/10/2023 [facility] DATE CREATED AUTHOR AUTHOR'S ORGANIZ ATION 08/18/2023 [facility] DATE CREATED AUTHOR AUTHOR'S ORGANIZ ATION 08/18/2023 [facility] DATE CREATED AUTHOR AUTHOR'S ORGANIZ ATION 08/29/2023 [facility] Care Teams (unrecognized sec tion and content) 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 Relationship Specialty Start Date End Date Mark Tam DO [address] [place] [address] PCP - General Family Medicine 02/02/19 Furnace Repairer Relationship Specialty Start Date End Date Mark Tam DO [address] [place] [address] PCP - General Family Medicine 02/02/19 Furnace Repairer Relationship Specialty Start Date End Date Mark Tam DO [address] [place] [address] PCP - General Family Medicine 07/21/23 Furnace Repairer Relationship Specialty Start Date End Date Mark Tam DO [address] [place] [address] PCP - General Family Medicine 07/21/23 Furnace Repairer Relationship Specialty Start Date End Date Mark Tam DO [address] [place] [address] PCP - General Family Medicine 07/21/23 Furnace Repairer Relationship Specialty Start Date End Date Shaikh Bautista MD [address] [place] [id number] PCP - General Internal Medicine 08/09/23 Furnace Repairer Relationship Specialty Start Date End Date Shaikh Bautista MD [address] [place] [id number] PCP - General Internal Medicine 08/09/23 Furnace Repairer Relationship Specialty Start Date End Date Shaikh Bautista MD [address] [place] [id number] PCP - General Internal Medicine 08/09/23 Reason for Visit (unrecogniz ed section and content) Reason Comments Establish Care FOR RECORDS PERTAINING TO PATIENTS WHO ARE OR HAVE BEEN ENROLLED IN A CHEMICAL DEPENDENCY/SUBSTANCEABUSE PROGRAM, SOME INFORMATION MAY BE OMITTED. This clinical summary was aggregated from multiple sources. Caution should be exercised in using it in the provision of clinical care. This summary normalizes information from multiple sources, and as a consequence, information in this document may materially change the coding, format and clinical context of patient data. In addition, data may be omitted in some cases. CLINICAL DECISIONS SHOULD BE BASED ON THE PRIMARY CLINICAL RECORDS. [facility] [employer] provides no warranty or guarantee of the accuracy or completeness of information in this document.
[2023-08-30 11:28] LABS: Anion Gap 15.5; BUN Creatinine Ratio 26.1; Calcium 8.8 mg/dL (8.5-10.1); Carbon Dioxide 21.1 mmol/L (21.0-32.0); Chloride 98 mmol/L (98-107); Estimated GFR (African America >60 (>=60); Estimated GFR (Non-African Ame >60 (>=60); Glucose 261 mg/dL (74-106); Potassium 4.6 mmol/L (3.5-5.1); Sodium 130 mmol/L (136-145)
[2023-08-30 11:30] LABS: Basophils Absolute Auto 0.1 10^3/uL (0.0-0.1); Basophils Percent Auto 1.2 % (0.2-2.0); Eosinophils Absolute Auto 0.2 10^3/uL (0.0-0.7); Eosinophils Percent Auto 2.4 % (0.9-7.0); Hematocrit 45.5 % (42.0-54.0); Hemoglobin 14.2 g/dL (14.0-18.0); Immature Granulocytes Abs Auto 0.03 10^3/uL (0.00-0.03); Immature Granulocytes Pct Auto 0.5 % (0.0-0.5); Lymphocytes Absolute Auto 0.7 10^3/uL (1.2-3.8); Lymphocytes Percent Auto 10.8 % (20.5-60.0); Mean Corpuscular HGB Conc 31.2 g/dL (29.9-35.2); Mean Corpuscular Hemoglobin 27.5 pg (25.9-34.0); Mean Platelet Volume 9.2 fL (9.5-13.5); Monocytes Absolute Auto 0.5 10^3/uL (0.3-0.8); Monocytes Percent Auto 6.8 % (1.7-12.0); Neutrophils Absolute Auto 5.2 10^3/uL (1.4-6.5); Neutrophils Percent Auto 78.3 % (43.0-75.0); Platelet Count 289 10^3/uL (150-450); Red Blood Count 5.17 10^6/uL (4.70-6.10); Red Cell Distribution Width 18.8 % (11.0-15.0); White Blood Count 6.7 10^3/uL (4.0-11.0)
== END 2023-08-30 10:49 | disposition home or self-care (01) ==
LOC: LAB 10:49
PROVIDERS: PCP Internal Medicine; Visit Provider Nurse Practitioner Family
DX: I48.0 Paroxysmal atrial fibrillation (principal); I48.91 Unspecified atrial fibrillation; I11.0 Hypertensive heart disease with heart failure
CPT/HCPCS: 36415; 80048; 85025

== ENCOUNTER 2023-10-14 12:33 | Outpatient (OUT) | payer MEDICARE, SELFPAY ==
[2023-10-14 13:40] LABS: Basophils Absolute Auto 0.1 10^3/uL (0.0-0.1); Basophils Percent Auto 0.9 % (0.2-2.0); Eosinophils Absolute Auto 0.2 10^3/uL (0.0-0.7); Eosinophils Percent Auto 2.4 % (0.9-7.0); Hematocrit 43.7 % (42.0-54.0); Hemoglobin 13.9 g/dL (14.0-18.0); Immature Granulocytes Abs Auto 0.04 10^3/uL (0.00-0.03); Immature Granulocytes Pct Auto 0.5 % (0.0-0.5); Lymphocytes Percent Auto 13.2 % (20.5-60.0); Mean Corpuscular HGB Conc 31.8 g/dL (29.9-35.2); Mean Corpuscular Hemoglobin 29.1 pg (25.9-34.0); Mean Corpuscular Volume 91.4 fL (80.0-94.0); Mean Platelet Volume 9.5 fL (9.5-13.5); Monocytes Absolute Auto 0.8 10^3/uL (0.3-0.8); Monocytes Percent Auto 9.7 % (1.7-12.0); Neutrophils Absolute Auto 5.8 10^3/uL (1.4-6.5); Neutrophils Percent Auto 73.3 % (43.0-75.0); Platelet Count 273 10^3/uL (150-450); Red Blood Count 4.78 10^6/uL (4.70-6.10); Red Cell Distribution Width 17.3 % (11.0-15.0); White Blood Count 7.9 10^3/uL (4.0-11.0)
[2023-10-14 13:48] LABS: Anion Gap 15.5; BUN Creatinine Ratio 27.6; Calcium 9.6 mg/dL (8.5-10.1); Carbon Dioxide 23.7 mmol/L (21.0-32.0); Chloride 102 mmol/L (98-107); Estimated GFR (African America >60 (>=60); Estimated GFR (Non-African Ame >60 (>=60); Glucose 132 mg/dL (74-106); Potassium 4.2 mmol/L (3.5-5.1); Sodium 137 mmol/L (136-145)
== END 2023-10-14 12:34 | disposition home or self-care (01) ==
LOC: LAB 12:37
PROVIDERS: PCP Internal Medicine; Visit Provider Internal Medicine Cardiovascular Disease
DX: I48.0 Paroxysmal atrial fibrillation (principal)
CPT/HCPCS: 36415; 80048; 85025

== ENCOUNTER 2023-12-08 08:25 | Outpatient (OUT) | payer MEDICARE, SELFPAY ==
--- OUTSIDE RECORDS SUMMARY | 2023-12-08 08:33 | XMS_ITS | CCD ---
Author Organization [facility] Care Team Providers Care Ethylene Oxide Panelboard Operator Name Role Phone DEEP, QUYEN Unavailable Unavailable DEEP, QUYEN Unavailable Unavailable HOUSE, MARK Unavailable Unavailable HOUSE, MARK Unavailable Unavailable CARSON ASHLEY Consulting Unavailable JENNY, FRANCA Attending Unavailable JENNY, FRANCA Admitting Unavailable FRANCA ALVARADO Consulting Unavailable House Mark LEVY Primary Care Provider Mark Tam DO Primary Care Provider Shaikh Bautista MD Primary Care Provider [phone] Zeeshan Carmichael MD Attending Unavailable HOUSE, MARK Baird Primary Care Unavailable Zeeshan Carmichael MD Attending Unavailable HOUSE, MARK Baird Primary Care Unavailable HOUSE, MARK Baird Primary Care Unavailable Zeeshan Carmichael MD Attending Unavailable HOUSE, MARK Baird Primary Care Unavailable Zeeshan Carmichael MD Attending Unavailable HOUSE, MARK Baird Primary Care Unavailable Zeeshan Carmichael MD Attending Unavailable HOUSE, MARK Baird Primary Care Unavailable Zeeshan Carmichael MD Attending Unavailable HOUSE, MARK Baird Primary Care Unavailable HOUSE, MARK Baird Attending Unavailable Shaikh Bautista MD Primary Care Provider [phone] MARK TAM Referring Unavailable SHAIKH BAUTISTA Primary Care Unavailable SHAIKH BAUTISTA Referring Unavailable SHAIKH BAUTISTA Primary Care Unavailable SHAIKH BAUTISTA Referring Unavailable SHAIKH BAUTISTA Primary Care Unavailable MARK TAM Referring Unavailable HOUSE, MARK Baird Primary Care Unavailable HOUSE, MARK Baird Referring Unavailable HOUSE, MARK Baird Primary Care Unavailable SHAIKH BAUTISTA Attending Unavailable SHAIKH BAUTISTA Attending Unavailable SHAIKH BAUTISTA Attending Unavailable FAWWAD, AVILEZ Attending Unavailable HOUSE, MARK P Referring Unavailable [...] Care Unavailable HOUSE, MARK P Referring Unavailable [facility], [facility] Primary Care Unavailable HOUSE, MARK P Referring Unavailable FAWW[facility], [facility] Primary Care Unavailable HOUSE, MARK P Referring Unavailable [facility], [facility] Primary Care Unavailable HOUSE, MARK P Referring Unavailable [facility], [facility] Primary Care Unavailable HOUSE, MARK P Referring Unavailable FA[facility], [facility] Primary Care Unavailable HOUSE, MARK P Referring Unavailable [facility], [facility] Primary Care Unavailable HOUSE, MARK P Referring Unavailable [facility], [facility] Primary Care Unavailable [facility], [facility] Referring Unavailable [facility], [facility] Primary Care Unavailable [facility], [facility] Referring Unavailable [facility], [facility] Primary Care Unavailable [facility], [facility] Referring Unavailable [facility], [facility] Primary Care Unavailable [facility], [facility] Referring Unavailable [facility], [facility] Primary Care Unavailable [facility], [facility] Referring Unavailable [facility], [facility] Primary Care Unavailable HOUSE, MARK P Referring [...] Unavailable HOUSE, MARK P Primary Care Unavailable [facility], [facility] Referring Unavailable FAW[facility], [facility] Primary Care Unavailable ALI, MARLYS A Referring Unavailable [facility], [facility] Primary Care Unavailable ALI, MARLYS A Referring Unavailable [facility], [facility] Primary Care Unavailable ALI, MARLYS A Referring Unavailable [facility], [facility] Primary Care Unavailable HOUSE, MARK P Referring Unavailable [facility], [facility] Primary Care Unavailable ALI, MARLYS A Referring Unavailable [facility], [facility] Primary Care Unavailable ALI, MARLYS A Referring Unavailable [facility], [facility] Primary Care Unavailable ALI, MARLYS A Referring Unavailable [facility], [facility] Primary Care Unavailable ALI, MARLYS A Referring Unavailable [facility], [facility] Primary Care Unavailable ALI, MARLYS A Referring Unavailable [facility], [facility] Primary Care Unavailable ALI, MARLYS A Referring Unavailable [facility], [facility] Primary Care Unavailable ALI, MARLYS A Referring Unavailable [facility], [facility] Primary Care Unavailable ALI, MARLYS A Referring Unavailable [facility], [facility] Primary Care Unavailable ALI, MARLYS A Referring Unavailable [facility], [facility] Primary Care Unavailable JOHN MALDONADO Referring Unavailable QUYEN ADAME Attending Unavailable EFRAIN, RAVEN Referring Unavailable SHAWNASHELDON Li Attending Unavailable JAVIER, BRI Referring Unavailable LACEY LOYOLA Referring Unavailable EFRAIN, ARVEN Referring Unavailable JOHN MALDONADO Admitting Unavailable JOHN MALDONADO Attending Unavailable JAVIER, BRI Admitting Unavailable YUSUF DIXON Attending Unavailab le EFRAIN, RAVEN Referring Unavailable CLARISSA AGARWAL Attending Unavailable JOHN MALDONADO Referring Unavailable RENETTA, HANI Referring Unavailable EFRAIN, SARMED Referring Unavailable RENETTA, HANI Referring Unavailable SANAULLAH, KATY Referring Unavailable EFRAIN, SARMED Referring Unavailable SANAULLAH, KATY Referring Unavailable LACEY LOYOLA Referring Unavailable JOELJOHN Attending Unavailable HERCHER, LETICIA Referring Unavailable JAVIER, BRI Admitting Unavailable EFRAIN, RAVEN Attending Unavailable EFRAIN, SARMED Referring Unavailable SANAULLAH, KATY Referring Unavailable RENETTA, HANI Referring Unavailable ZAKI HAMILTON Attending Unavailable GANGWANI, YUSUF MARISCAL Referring Unavailab le HERCHER, LETICIA Referring Unavailable TOMÁS RAMOS Referring Unavailable JAVIER, BRI Referring Unavailable JOEL, JOHN Referring Unavailable Allergies Allergy Classification Reported Allergen(s) Allergy Type Date of Onset Reaction(s) Facility Angiotensin Converting Enzyme (BERTA) Inhibitors (1 source) Lisinopril; Translations: [LISINOPRIL] Drug Allergy 03-31-2005 [facility] Repository HMG-CoA Reductase Inhibitors (statins) (3 sources) atorvastatin; Translations: [ATORVASTATIN] Drug Allergy 03-31-2005 [facility] Repository metFORMIN (1 source) metFORMIN; Translations: [METFORMIN] Drug Allergy 11-07-2020 [facility] Repository Opioid Agonists (1 source) Codeine; Translations: [CODEINE PHOSPHATE] Drug Allergy 06-15-2014 [facility] Repository (1 source) codeine Drug Allergy 05-08-2009 [facility] Repository (4 sources) Codeine; Translations: [codeine] Drug Allergy 05-10-2023 [facility] Repository (14 sources) Codeine Drug Allergy 05-10-2023 [facility] Medications Current Medications Medication Drug Class(es) Dates Sig (Normalized) Sig (Original) alogliptin 12.5 mg oral tablet (16 sources) End: 08-09-2023 alogliptin 12.5 mg tablet Take by mouth. 0 Active aspirin 81 mg delayed release oral tablet (3 sources) Platelet Aggregation Inhibitor, Nonsteroidal Anti-inflammatory Drug take 1 tablet by mouth in the morning aspirin 81 MG EC tablet Take 81 mg by mouth in the morning. 0 Active atenolol 25 mg oral tablet (14 sources) beta-Adrenergic Yue take 1 tablet by mouth in the morning atenoloL (TENORMIN) 25 mg tablet Take 1 tablet (25 mg total) by mouth in the morning. 0 Active clopidogrel 75 mg oral tablet (17 sources) P2Y12 Platelet Inhibitor take 1 tablet by mouth in the morning clopidogreL (PLAVIX) 75 mg tablet Take 1 tablet (75 mg total) by mouth in the morning. 0 Active empagliflozin 10 mg oral tablet (17 sources) Sodium-Glucose Cotransporter 2 Inhibitor take 1 tablet by mouth in the morning empagliflozin (JARDIANCE) 10 mg tablet tablet Take 1 tablet (10 mg total) by mouth in the morning. 0 Active take 25 mg by [facility] in [facility] empagliflozin (Jardiance) 25 MG Indications: Heart Failure Take 25 mg by mouth in the morning. 0 Active isosorbide dinitrate 5 mg oral tablet (14 sources) Nitrate Vasodilator take 1 tablet by mouth three times daily at mealtime isosorbide dinitrate (ISORDIL) 5 mg tablet Take 1 tablet (5 mg total) by mouth 3 (three) times a day with meals. 0 Active losartan potassium 25 mg oral tablet (14 sources) Angiotensin 2 Receptor Yue take 1 [...] Active rosuvastatin calcium 20 mg oral tablet (17 sources) HMG-CoA Reductase Inhibitor Start: 06-16-20 End: 06-15-20 24 take 1 tablet by mouth in the morning rosuvastatin (Crestor) 20 MG tablet Take 20 mg by mouth in the morning. 0 06/16/2023 06/15/2024 Active take [facility] rosuvastatin (CRESTOR) 5 mg tablet Take 1 [...] Active tamsulosin hydrochloride 0.4 mg oral capsule (17 sources) alpha-Adrenergic Yue Start: 02-17-2023 take 1 [...] Drug Class(es) Dates Sig (Normalized) Sig (Original) diclofenac sodium 75 mg delayed release oral [...] Date Documented Date Episodic/Chronic Acute myocardial infarction (14 sources) Acute subendocardial infarction; Translations: [Non-ST elevation (NSTEMI) myocardial infarction] Onset: 08-11-2023 07-13-2023 Chronic Administrative/social admission (5 sources) Patient [...] 11-13-2011 08-09-2023 Chronic Congestive heart failure; nonhypertensive (15 sources) Heart failure with reduced ejection fraction; Translations: [Unspecified systolic (congestive) heart failure] Onset: 06-05-2023 08-09-2023 Chronic Coronary atherosclerosis and other heart disease (13 sources) Atherosclerotic heart disease of jamul coronary artery without angina pectoris; Translations: [Coronary arteriosclerosis] Onset: 03-23-2018 08-09-2023 Chronic Diabetes mellitus without complication (5 sources) Type [...] initial encounter] Onset: 08-09-2023 08-09-2023 Chronic Osteoarthritis (5 sources) Osteoarthritis; Translations: [Unspecified osteoarthritis, unspecified site] Onset: 06-11-2023 08-09-2023 Chronic Other aftercare (1 source) 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; Translations: [LAPEL PADDER (CURRENT) USE OF ASPIRIN] Onset: 03-23-2018 Episodic Other aftercare (1 source) supervisor 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 disk quality control (current) use of antithrombotics/antipl atelets; Translations: [CUSTODIAL (CURRENT) USE OF ANTITHROMBOTICS/ANTIPL ATELETS] Onset: 03-23-2018 [...] Cough; Translations: [COUGH] Onset: 02-24-2021 Episodic Other nervous system disorders (3 sources) [...] Classification Problem Date Documented Da te Episodic/Chronic Coronary atherosclerosis and other heart disease (4 sources) Presence of coronary angioplasty implant and graft; Translations: [Presence of aortocoronary bypass graft] Onset: 03-23-2018 Episodic Other lower respiratory disease (2 sources) Shortness of breath; Translations: [Shortness of breath] Onset: 06-05-2023 Episodic Rheumatoid arthritis and related disease (4 sources) Rheumatoid arthritis, unspecified; Translations: [Rheumatoid arthritis] Onset: 01-30-2011 Resolved: 08-09-2023 08-09-2023 Chronic Unclassified (1 source) Other ventricular tachycardia; Translations: [Other ventricular tachycardia] Onset: 06-11-2023 Results Test Name Value Interpretation Reference Range Facility Orders Onlyon 12-01-2023 Orders Only Normal [facility] Telephoneon 11-12-2023 Telephone Normal [facility] Telephoneon 11-11-2023 Telephone Normal [facility] Telephoneon 10-28-2023 Telephone Normal [facility] ANESon 10-21-2023 ANES Normal [facility] ANES Normal [facility] HPon 10-21-2023 HP Normal [facility] POCT GLUCOSE METER UNSOLICIT ED RESULTSon 10-21-2023 Glucose [Mass/Vol] 228 mg/dL High 70-105 [facility] Comment on above: Order Comment: Waived Testing in the ED is performed under the ED CLIA certificate #[id number]. Result Comment: [email or web address] Performed By: #### L [id number] ####[facility] ([facility])[address] [place] [address] Glucose [Mass/Vol] 200 mg/dL High 70-105 [facility] Comment on above: Order Comment: Waived Testing in the ED is performed under the ED CLIA certificate #[id number]. Result Comment: [email or web address] Performed By: #### L [id number] ####[facility] ([facility])[address] [place] [address] PROTIME-INRon 10-21-2023 INR IN PPP BY COAGULATION ASSAY 1.10 Normal 0.90-1.10 [facility] Comment on above: Result Comment: [facility] RECOMMENDED INR FO R WARFARIN THERAPY CONDITION INRPROPHYLAXIS OF VENOUS THROMBOSIS 2-3(HIGH-RISK SURGERY)TREATMENT OF VENOUS THROMBOSIS 2-3TREATMENT OF PULMONARY EMBOLISM 2-3PREVENTION OF SYSTEMIC EMBOLISM: 2-3 ACUTE MYOCARDIAL INFARCTION TISSUE HEART VALVES VALVULAR HEART DISEASE ATRIAL FIBRILLATION RECURRENT SYSTEMIC EMBOLISMMECHANICAL HEART VALVE 2.5-3.5 FROM: ORAL ANTICOAGULANTS. MECHANISM OF ACTION, CLINICAL EFFECTIVENESS, AND OPTIMAL THERAPEUTIC RANGE. CHEST 1995;108:231S-246S. Performed By: #### L [id number] ####[facility] ([facility])[address] [place] [address] PROTHROMBIN TIME (PT) IN PPP BY COAGULATION ASSAY 14.2 Seconds Normal 12.3-14.8 [facility] Comment on above: Performed By: #### [id number] ####[facility] (BEAKER)[address] [place] [address] Prep for Procedureon 10-20-2 024 Prep for Procedure Normal [facility] Prep for Procedureon 024 Prep for Procedure Normal [facility] Prep for Procedureon 024 Prep for Procedure Normal [facility] XR HAND LT MIN 3 VWSon 10-02 XR HAND LT MIN 3 VWS XR HAND LT MIN 3 VWS HISTORY: A 68-year-old male with the history of the bilateral wrist and hand pain. Inflammatory arthritis is suspected. TECHNIQUE: Left hand: 3 views COMPARISON: No relevant prior studies are available for comparison. FINDINGS: There is no evidence of fracture, dislocation or acute bony pathology. There are mild degenerative changes in the wrist joint. Carpophalangeal and interphalangeal joints are intact. There is no evidence of no subarticular cystic changes or abnormal soft tissue calcifications. An osteopenia. 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 * An osteopenia. Finalized by Fran Matias MD on 10/03/2023 8:47 AM Normal [facility] XR HAND RT MIN 3 VWSon 10-02 XR HAND RT MIN 3 VWS XR HAND RT MIN 3 VWS HISTORY: A 68-year-old male with the history of the bilateral hand pain. Inflammatory arthritis is suspected. TECHNIQUE: Right hand: 3 views COMPARISON: No relevant prior studies are available for comparison. FINDINGS: There is no evidence of fracture or acute bony pathology. Changes in the neck of the fifth metacarpal suggestive of sequelae of the prior fracture. There are mild degenerative changes in the wrist joint. Metacarpophalangeal and interphalangeal joints are intact. There is an osteopenia. No other significant soft tissue abnormality seen. IMPRESSION: * Osteoarthritis involving the wrist joint. Other small joints are intact. * An osteopenia. Finalized by Fran Matias MD on 10/03/2023 8:46 AM Normal [facility] BASIC METABOLIC PANLon 09-29 Anion gap [Moles/Vol] 13 mmol/L Normal 5-15 [facility] Comment on above: Performed By: #### EKATERINA, 1987-10, C34, 824 77-1, 38457-4, 73390-7, 16693-5 #### [facility] ([id number]) [address], [address] [place] [address] Calcium [Mass/Vol] 9.1 mg/dL Normal 8.5-10.5 [facility] Comment on above: Performed By: #### EKATERINA, 1987-10, C34, 824 77-1, 16442-0, 25287-2, 70604-5 #### [facility] ([id number]) [address], [address] [place] [address] Chloride [Moles/Vol] 103 mmol/L Normal 98-109 [facility] Comment on above: Performed By: #### EKATERINA, 1987-10, C34, 824 77-1, 47354-0, 42007-6, 31260-9 #### [facility] ([id number]) [address], [address] [place] [address] CO2 [Moles/Vol] 23 mmol/L Normal 22-32 [facility] Comment on above: Performed By: #### EKATERINA, 1987-10, C34, 824 77-1, 94859-4, 47921-1, 25057-9 #### [facility] ([id number]) [address], [address] [place] [address] Creatinine [Mass/Vol] 1.04 mg/dL Normal 0.60-1.30 [facility] Comment on above: Result Comment: METHOD TRACEABLE TO IDMS STANDARD Performed By: #### B DAWNA, 1987-10, C34, 10695-4, 93773-8, 11453-2, 18147-6 #### [facility] ([id number]) [address], [address] [place] [address] GFR/1.73 sq M.predicted among non-blacks MDRD (S/P/Bld) [Vol rate/Area] 78 mL/min/{1.73_m2} Normal >59 [facility] Comment on above: Result Comment: Reported eGFR is based on the CKD-EPI 2020 equation that does not use a race coefficient. Performed By: #### B DAWNA, 1987-10, C34, 53904-5, 15382-4, 02946-9, 01367-8 #### [facility] ([id number]) [address], [address] [place] [address] Glucose [Mass/Vol] 241 mg/dL High 65-99 [facility] Comment on above: Performed By: #### EKATERINA, 1987-10, C34, 824 77-1, 21024-0, 91267-8, 30862-7 #### [facility] ([id number]) [address], [address] [place] [address] Potassium [Moles/Vol] 4.1 mmol/L Normal 3.5-5.0 [facility] Comment on above: Performed By: #### EKATERINA, 1987-10, C34, 824 77-1, 64906-5, 10572-6, 59140-7 #### [facility] ([id number]) [address], [address] [place] [address] Sodium [Moles/Vol] 139 mmol/L Normal 134-146 [facility] Comment on above: Performed By: #### EKATERINA, 1987-10, C34, 824 77-1, 07856-3, 90308-8, 63252-4 #### [facility] ([id number]) [address], [address] [place] [address] Urea nitrogen [Mass/Vol] 25 mg/dL Normal 5-27 [facility] Comment on above: Performed By: #### EKATERINA, 1987-10, C34, 824 77-1, 03152-7, 23390-1, 15103-9 #### [facility] ([id number]) [address], [address] [place] [address] COMPLEMENT PROFILEon 024 COMPLEMENT C3 141 mg/dL Normal 86-184 [facility] Comment on above: Performed By: #### EKATERINA, 1987-10, C34, 824 77-1, 58741-9, 88397-3, 30443-9 #### [facility] ([id number]) [address], [address] [place] [address] COMPLEMENT C4 38 mg/dL Normal 16-47 [facility] Comment on above: Performed By: #### EKATERINA, 1987-10, C34, 824 77-1, 73538-2, 38100-7, 28634-4 #### [facility] ([id number]) [address], [address] [place] [address] CRP [Mass/Vol]on 09-30-2023 C REACTIVE PROTEIN 1.7 mg/dL High 0.000-0.744 [facility] Comment on above: Performed By: #### EKATERINA, 1987-10, C34, 824 77-1, 63489-9, 35648-4, 92587-6 #### [facility] ([id number]) [address] [facility], [address] [address] ESR Photometric method (Bld) [Velocity]on 09-30-2023 ESR, ERYTHROCYTE SEDIMENTATION RATE 40 mm/h High 0-20 [facility] Comment on above: Performed By: #### EKATERINA, 1987-10, C3, [facility] 77-1, 56175-5, 45446-8, 07498-3 #### [facility] ([id number]) [address] [place] [address], [address] [place] [address] Nuclear Ab IA Ql (S)on 09-29 LEO Screen w/reflex Negative Normal NEG [facility] Comment on above: Result Comment: Testing performed using multiplex flow immunoassay. Eleven different antigens associated with systemic autoimmune diseases (dsDNA,Sm,Sm/BELLY DUMP DRIVER,BELLY DUMP DRIVER,Chromatin, SSA,SSB,Maria M-1,Scl70,Ribo P,Centromere B) are included in this screening test. Performed By: #### B DAWNA, 1987-10, C34, 95625-8, 92728-0, 04171-7, 86068-6 #### [facility] ([id number]) [address], [address] [place] [address] Rheumatoid factor Nephelomet ry Qn (S)on 09-30-2023 RHEUMATOID FACTOR 161 IU/mL High <20 [facility] Comment on above: Performed By: #### EKATERINA, 1988-5, C34, 824 77-1, 20697-1, 60223-4, 49878-2 #### [facility] ([id number]) [address] [facility] [facility], [address] [place] [address] Orders Onlyon 09-28-[address] [facility] 36on 09-15-2023 36 Regarding labs from 08/30/2023: PUSHPA Maher MA Please let him know his kidney function is normal/stable along with his blood counts. Thanks! Patient's informed. [facility] Orders Onlyon 08-31-[address] [facility] 08-30-2023 36 The Toprol is for hi s heart failure to help improve his pumping function, not his blood pressure. It can affect his blood pressure which is why I want him to start with low dose at 25mg. Thanks [facility] 08-27-2023 36 LM for patient to re turn my call. Note faxed to Jessica at [facility] in [place]. [facility] 36on 08-26-[address] [facility] [address] Jessica from [facility] (fax#: [phone]) called requesting clearance for Mr. Phillips to return to cardiac rehab. You can always put it in your note if you prefer, and then let me know once it's finished. I'll fax it over to them. Thanks!! [facility] 36on 08-23-[address] [facility] Telephoneon 08-23-[address] [facility] 30on 08-21-[address] [facility] BASIC METABOLIC PANELon 07-30 Anion gap [Moles/Vol] 13 mmol/L Normal - [facility] Comment on above: Performed By: #### [id number] ####[facility] (BEAKER)[address] [place] [address] Calcium [Mass/Vol] 8.3 mg/dL Low 8.6-10.3 [facility] Comment on above: Performed By: #### [id number] ####[facility] (BEAKER)[address] [place] [address] Chloride [Moles/Vol] 106 mmol/L Normal 98-107 [facility] Comment on above: Performed By: #### [id number] ####[facility] (BEAKER)[address] [place] [address] CO2 [Moles/Vol] 19 mmol/L Low 21-31 [facility] Comment on above: Performed By: #### [id number] ####[facility] [place] [address] Creatinine [Mass/Vol] 0.95 mg/dL Normal 0.70-1.30 [facility] Comment on above: Performed By: #### [id number] ####[facility] [place] [address] GLOMERULAR FILTRATION RATE ML/MIN/1.73 SQ M.PREDICTED 87.2 mL/min/1.73m*2 Normal >60.0 [facility] Comment on above: Result Comment: [facility]???s estimated glomerular filtration rate (eGFR) will [...] of individuals. Performed By: #### L [id number] ####[facility] ([facility]ER)[address] [place] [address] Glucose [Mass/Vol] 154 mg/dL High 70-100 [facility] Comment on above: Performed By: #### [id number] ####[facility] (BEAKER)[address] [place] [address] Potassium [Moles/Vol] 3.9 mmol/L Normal 3.5-5.1 [facility] Comment on above: Performed By: #### [id number] ####[facility] (BEAKER)[address] [place] [address] Sodium [Moles/Vol] 134 mmol/L Low 136-145 [facility] Comment on above: Performed By: #### [id number] ####[facility] (BEAKER)[address] [place] [address] Urea nitrogen [Mass/Vol] 22 mg/dL Normal 7-25 [facility] Comment on above: Performed By: #### [id number] ####[facility] (BEAKER)[address] [place] [address] UREA NITROGEN/CREATIN INE (MASS RATIO) IN SER/PLAS 23.2 Normal [facility] Comment on above: Performed By: #### [id number] ####[facility] (BEAKER)[address] [place] [address] CBC WITH AUTO DIFFERENTIALon 08-21-2023 Basophils (Bld) [#/Vol] 0.06 10*3/uL Normal 0.00-0.20 [facility] Comment on above: Performed By: #### [id number] ####[facility] HOSP ITAL LAB (BEAKER)[address] [place] [address] Basophils/100 WBC (Bld) 0.8 % Normal 0.0-1.0 [facility] Comment on above: Performed By: #### [id number] ####[facility] HOSP ITAL LAB (BEAKER)[address] [place] [address] Eosinophils (Bld) [#/Vol] 0.38 10*3/uL Normal 0.00-0.50 [facility] Comment on above: Performed By: #### [id number] ####[facility] HOSP ITAL LAB (BEAKER)[address] [place] [address] Eosinophils/100 WBC (Bld) 4.8 % Normal 0.0-6.0 [facility] Comment on above: Performed By: #### [id number] ####[facility] HOSP ITAL LAB (BEAKER)[address] [place] [address] Erythrocyte distribution width (RBC) [Ratio] 18.4 % High 11.5-15.0 [facility] Comment on above: Performed By: #### [id number] ####[facility] ITAL LAB (BEAKER)[address] [place] [address] ERYTHROCYTE MEAN CORPUSCULAR HEMOGLOBIN CONCENTRATION (G/DL) BY AUTOMATED 32.6 g/dL Normal 32.0-35.0 [facility] Comment on above: Performed By: #### [id number] ####[facility] ITAL LAB (BEAKER)[address] [place] [address] Hematocrit (Bld) [Volume fraction] 35.3 % Low 39.0-55.0 [facility] Comment on above: Performed By: #### [id number] ####[facility] ITAL LAB (BEAKER)[address] [place] [address] Hemoglobin (Bld) [Mass/Vol] 11.5 g/dL Low 13.0-17.0 [facility] Comment on above: Performed By: #### [id number] ####[facility] ITAL LAB (BEAKER)[address] [place] [address] Immature granulocytes (Bld) [#/Vol] 0.06 10*3/uL Normal 0.00-0.20 [facility] Comment on above: Performed By: #### [id number] ####[facility] ITAL LAB (BEAKER)[address] [place] [address] Immature granulocytes/100 WBC (Bld) 0.8 % Normal 0.0-1.0 [facility] Comment on above: Performed By: #### [id number] ####[facility] ITAL LAB (BEAKER)[address] [place] [address] Lymphocytes (Bld) [#/Vol] 0.94 10*3/uL Low 1.20-4.00 [facility] Comment on above: Performed By: #### [id number] ####[facility] HOSP ITAL LAB (BEAKER)[address] [place] [address] Lymphocytes/100 WBC (Bld) 11.8 % Low 20.0-45.0 [facility] Comment on above: Performed By: #### [id number] ####[facility] HOSP ITAL LAB (BEAKER)[address] [place] [address] MCH (RBC) [Entitic mass] 27.5 pg Normal 27.0-33.0 [facility] Comment on above: Performed By: #### [id number] ####[facility] HOSP ITAL LAB (BEAKER)[address] [place] [address] MCV (RBC) [Entitic vol] 84.4 fL Normal 82.0-98.0 [facility] Comment on above: Performed By: #### [id number] ####[facility] HOSP ITAL LAB (BEAKER)[address] [place] [address] Monocytes (Bld) [#/Vol] 0.86 10*3/uL Normal 0.10-1.00 [facility] Comment on above: Performed By: #### [id number] ####[facility] HOSP ITAL LAB (BEAKER)[address] [place] [address] Monocytes/100 WBC (Bld) 10.8 % Normal 5.0-12.0 [facility] Comment on above: Performed By: #### [id number] ####[facility] HOSP ITAL LAB (BEAKER)[address] [place] [address] Neutrophils (Bld) [#/Vol] 5.67 10*3/uL Normal 1.60-7.60 [facility] Comment on above: Performed By: #### [id number] ####[facility] HOSP ITAL LAB (BEAKER)[address] [place] [address] Neutrophils/100 WBC (Bld) 71.0 % Normal 40.0-72.0 [facility] Comment on above: Performed By: #### [id number] ####[facility] HOSP ITAL LAB (BEAKER)[address] [place] [address] NRBC (PER 100 WBCS) BY AUTOMATED COUNT 0.0 % Normal 0 [facility] Comment on above: Performed By: #### [id number] ####[facility] HOSP ITAL LAB (BEAKER)[address] [place] [address] PLATELETS (10*3/UL) IN BLOOD AUTOMATED COUNT 288 10*3/uL Normal 150-400 [facility] Comment on above: Performed By: #### [id number] ####[facility] ITAL LAB (BEAKER)[address] [place] [address] RBC (Bld) [#/Vol] 4.18 10*6/uL Low 4.20-5.70 [facility] Comment on above: Performed By: #### [id number] ####[facility] ITAL LAB (BEAKER)[address] [place] [address] WBC (Bld) [#/Vol] 7.97 10*3/uL Normal 4.00-10.60 [facility] Comment on above: Performed By: #### [id number] ####[facility] ITAL LAB (BEAKER)[address] [place] [address] DSon 08-21-2023 DS Normal [facility] MAGNESIUMon 08-21-2023 Magnesium [Mass/Vol] 2.1 mg/dL Normal 1.9-2.7 [facility] Comment on above: Performed By: #### [id number] ####[facility] (BE[facility]ER)[address] [place] [address] POCT GLUCOSE METER UNSOLICIT ED RESULTSon 08-21-2023 Glucose [Mass/Vol] 141 mg/dL High 70-105 [facility] Comment on above: Order Comment: Waived Testing in the ED is performed under the ED CLIA certificate #[id number]. Result Comment: [email or web address] Performed By: #### L [id number] ####[facility] HOSPITAL LAB (BEAKER)[address] [place] [address] 30on 08-20-2023 30 The patient is Moder ately Stable - Low risk of patient condition declining or worsening The patient's goals for the shift include comfort, rest The clinical goals for the shift include Stable VS, comfort Normal [facility] 30 Normal [facility] 30 Normal [facility] BASIC METABOLIC PANELon 02- Anion gap [Moles/Vol] 13 mmol/L Normal 7-20 [facility] Comment on above: Performed By: #### [id number] ####[facility] HOSPIT AL LAB (BEAKER)[address] [place] [address] Calcium [Mass/Vol] 8.7 mg/dL Normal 8.6-10.3 [facility] Comment on above: Performed By: #### [id number] ####[facility] HOSPIT AL LAB (BEAKER)[address] [employer] [place] [address] Chloride [Moles/Vol] 106 mmol/L Normal 98-107 [facility] Comment on above: Performed By: #### [id number] ####[facility] HOSPIT AL LAB (BEAKER)[address] [employer] [place] [address] CO2 [Moles/Vol] 20 mmol/L Low 21-31 [facility] Comment on above: Performed By: #### [id number] ####[facility] HOSPIT AL LAB (BEAKER)[address] [employer] [place] [place] [address] Creatinine [Mass/Vol] 1.12 mg/dL Normal 0.70-1.30 [facility] Comment on above: Performed By: #### [id number] ####[facility] HOSPIT AL LAB (BEAKER)[address] [place] [address] GLOMERULAR FILTRATION RATE ML/MIN/1.73 SQ M.PREDICTED 71.6 mL/min/1.73m*2 Normal >60.0 [facility] Comment on above: Result Comment: The [facility]???s estimated glomerular filtration rate (eGFR) will [...] of individuals. Performed By: #### L [id number] ####[facility] HOSPITAL LAB (BEAKER)[address] [place] [address] Glucose [Mass/Vol] 137 mg/dL High 70-100 [facility] Comment on above: Performed By: #### [id number] ####[facility] HOSPIT AL LAB (BEAKER)[address] [place] [address] Potassium [Moles/Vol] 3.9 mmol/L Normal 3.5-5.1 [facility] Comment on above: Performed By: #### [id number] ####[facility] [place] [address] Sodium [Moles/Vol] 135 mmol/L Low 136-145 [facility] Comment on above: Performed By: #### [id number] ####[facility] ([facility])[address] [place] [address] Urea nitrogen [Mass/Vol] 25 mg/dL Normal 7-25 [facility] Comment on above: Performed By: #### [id number] ####[facility] HOSPIT AL LAB (BEAKER)[address] [place] [address] UREA NITROGEN/CREATIN INE (MASS RATIO) IN SER/PLAS 22.3 Normal [facility] Comment on above: Performed By: #### [id number] ####[facility] HOSPIT AL LAB (BEAKER)[address] [place] [address] CBC WITH AUTO DIFFERENTIALon 08-20-2023 Basophils (Bld) [#/Vol] 0.06 10*3/uL Normal 0.00-0.20 [facility] Comment on above: Performed By: #### [id number] ####[facility] HOSP ITAL LAB (BEAKER)[address] [place] [address] Basophils/100 WBC (Bld) 0.7 % Normal 0.0-1.0 [facility] Comment on above: Performed By: #### [id number] ####[facility] HOSP ITAL LAB (BEAKER)[address] [place] [address] Eosinophils (Bld) [#/Vol] 0.39 10*3/uL Normal 0.00-0.50 [facility] Comment on above: Performed By: #### [id number] ####[facility] HOSP ITAL LAB (BEAKER)[address] [place] [address] Eosinophils/100 WBC (Bld) 4.3 % Normal 0.0-6.0 [facility] Comment on above: Performed By: #### [id number] ####[facility] ITAL LAB (BEAKER)[address] [place] [address] Erythrocyte distribution width (RBC) [Ratio] 18.3 % High 11.5-15.0 [facility] Comment on above: Performed By: #### [id number] ####[facility] ITAL LAB (BEAKER)[address] [place] [address] ERYTHROCYTE MEAN CORPUSCULAR HEMOGLOBIN CONCENTRATION (G/DL) BY AUTOMATED 32.5 g/dL Normal 32.0-35.0 [facility] Comment on above: Performed By: #### [id number] ####[facility] ITAL LAB (BEAKER)[address] [place] [address] Hematocrit (Bld) [Volume fraction] 36.3 % Low 39.0-55.0 [facility] Comment on above: Performed By: #### [id number] ####[facility] ITAL LAB (BEAKER)[address] [place] [address] Hemoglobin (Bld) [Mass/Vol] 11.8 g/dL Low 13.0-17.0 [facility] Comment on above: Performed By: #### [id number] ####[facility] ITAL LAB (BEAKER)[address] [place] [address] Immature granulocytes (Bld) [#/Vol] 0.05 10*3/uL Normal 0.00-0.20 [facility] Comment on above: Performed By: #### [id number] ####[facility] HOSP ITAL LAB (BEAKER)[address] [place] [address] Immature granulocytes/100 WBC (Bld) 0.5 % Normal 0.0-1.0 [facility] Comment on above: Performed By: #### [id number] ####[facility] HOSP ITAL LAB (BEAKER)[address] [place] [address] Lymphocytes (Bld) [#/Vol] 0.93 10*3/uL Low 1.20-4.00 [facility] Comment on above: Performed By: #### [id number] ####[facility] HOSP ITAL LAB (BEAKER)[address] [place] [address] Lymphocytes/100 WBC (Bld) 10.2 % Low 20.0-45.0 [facility] Comment on above: Performed By: #### [id number] ####[facility] HOSP ITAL LAB (BEAKER)[address] [place] [address] MCH (RBC) [Entitic mass] 27.7 pg Normal 27.0-33.0 [facility] Comment on above: Performed By: #### [id number] ####[facility] HOSP ITAL LAB (BEAKER)[address] [place] [address] MCV (RBC) [Entitic vol] 85.2 fL Normal 82.0-98.0 [facility] Comment on above: Performed By: #### [id number] ####[facility] HOSP ITAL LAB (BEAKER)[address] [place] [address] Monocytes (Bld) [#/Vol] 0.94 10*3/uL Normal 0.10-1.00 [facility] Comment on above: Performed By: #### [id number] ####[facility] HOSP ITAL LAB (BEAKER)[address] [place] [address] Monocytes/100 WBC (Bld) 10.3 % Normal 5.0-12.0 [facility] Comment on above: Performed By: #### [id number] ####[facility] HOSP ITAL LAB (BEAKER)[address] [place] [address] Neutrophils (Bld) [#/Vol] 6.77 10*3/uL Normal 1.60-7.60 [facility] Comment on above: Performed By: #### [id number] ####[facility] HOSP ITAL LAB (BEAKER)[address] [place] [address] Neutrophils/100 WBC (Bld) 74.0 % High 40.0-72.0 [facility] Comment on above: Performed By: #### [id number] ####[facility] HOSP ITAL LAB (BEAKER)[address] [place] [address] NRBC (PER 100 WBCS) BY AUTOMATED COUNT 0.0 % Normal 0 [facility] Comment on above: Performed By: #### [id number] ####[facility] HOSP ITAL LAB (BEAKER)[address] [place] [address] PLATELETS (10*3/UL) IN BLOOD AUTOMATED COUNT 287 10*3/uL Normal 150-400 [facility] Comment on above: Performed By: #### [id number] ####[facility] HOSP ITAL LAB (BEAKER)[address] [place] [address] RBC (Bld) [#/Vol] 4.26 10*6/uL Normal 4.20-5.70 [facility] Comment on above: Performed By: #### [id number] ####[facility] HOSP ITAL LAB (BEAKER)[address] [place] [address] WBC (Bld) [#/Vol] 9.14 10*3/uL Normal 4.00-10.60 [facility] Comment on above: Performed By: #### [id number] ####[facility] HOSP ITAL LAB (BEAKER)[address] [place] [address] MAGNESIUMon 08-20-2023 Magnesium [Mass/Vol] 2.1 mg/dL Normal 1.9-2.7 [facility] Comment on above: Performed By: #### [id number] ####[facility]OSPI BRONWYN LAB (BEAKER)[address] [place] [address] POCT GLUCOSE METER UNSOLICIT ED RESULTSon 08-20-2023 Glucose [Mass/Vol] 229 mg/dL High 70-105 [facility] Comment on above: Order Comment: Waived Testing in the ED is performed under the ED CLIA certificate #[id number]. Result Comment: [email or web address] Performed By: #### L [id number] ####[facility] HOSPITAL LAB (BEAKER)[address] [place] [address] Glucose [Mass/Vol] 179 mg/dL High 70-105 [facility] Comment on above: Order Comment: Waived Testing in the ED is performed under the ED CLIA certificate #[id number]. Result Comment: [email or web address] Performed By: #### L [id number] ####[facility]OSPITAL LAB (Myreks)[address] [place] [address] Glucose [Mass/Vol] 242 mg/dL High 70-105 [facility] Comment on above: Order Comment: Waived Testing in the ED is performed under the ED CLIA certificate #[id number]. Result Comment: [email or web address] Performed By: #### L [id number] ####[facility]OSPITAL LAB (BEMyreks)[address] [place] [address] Glucose [Mass/Vol] 119 mg/dL High 70-105 [facility] Comment on above: Order Comment: Waived Testing in the ED is performed under the ED CLIA certificate #[id number]. Result Comment: [email or web address] Performed By: #### L [id number] ####[facility]PITAL LAB (BEMyreks)[address] [place] [address] 30on 08-19-2023 30 Normal [facility] 30 Normal [facility] BASIC METABOLIC PANELon 07-30 Anion gap [Moles/Vol] 15 mmol/L Normal 7-20 [facility] Comment on above: Performed By: #### [id number] ####[facility] AL LAB [facility] [place] [address] Calcium [Mass/Vol] 8.5 mg/dL Low 8.6-10.3 [facility] Comment on above: Performed By: #### [id number] ####[facility] HOSPIT AL LAB (BEAKER)[address] [place] [address] Chloride [Moles/Vol] 107 mmol/L Normal 98-107 [facility] Comment on above: Performed By: #### [id number] ####[facility] AL LAB (BEAKER)[address] [place] [address] CO2 [Moles/Vol] 17 mmol/L Low 21-31 [facility] Comment on above: Performed By: #### [id number] ####[facility] AL LAB (BEAKER)[address] [place] [address] Creatinine [Mass/Vol] 1.10 mg/dL Normal 0.70-1.30 [facility] Comment on above: Performed By: #### [id number] ####[facility] AL LAB (BEAKER)[address] [place] [address] GLOMERULAR FILTRATION RATE ML/MIN/1.73 SQ M.PREDICTED 73.1 mL/min/1.73m*2 Normal >60.0 [facility] Comment on above: Result Comment: The [facility]???s estimated glomerular filtration rate (eGFR) will [...] of individuals. Performed By: #### L [id number] ####[facility] HOSPITAL LAB (BEAKER)[address] [place] [address] Glucose [Mass/Vol] 152 mg/dL High 70-100 [facility] Comment on above: Performed By: #### [id number] ####[facility] HOSPIT AL LAB (BEAKER)[address] [place] [address] Potassium [Moles/Vol] 3.9 mmol/L Normal 3.5-5.1 [facility] Comment on above: Performed By: #### [id number] ####[facility] HOSPIT AL LAB (BEAKER)[address] [place] [address] Sodium [Moles/Vol] 135 mmol/L Low 136-145 [facility] Comment on above: Performed By: #### [id number] ####[facility] AL LAB (BEAKER)[address] [place] [address] Urea nitrogen [Mass/Vol] 24 mg/dL Normal 7-25 [facility] Comment on above: Performed By: #### [id number] ####[facility] AL LAB (BEAKER)[address] [place] [address] UREA NITROGEN/CREATIN INE (MASS RATIO) IN SER/PLAS 21.8 Normal [facility] Comment on above: Performed By: #### [id number] ####[facility] AL LAB (BEAKER)[address] [place] [address] CBC WITH AUTO DIFFERENTIALon 08-19-2023 Basophils (Bld) [#/Vol] 0.05 10*3/uL Normal 0.00-0.20 [facility] Comment on above: Performed By: #### [id number] ####[facility]OSP ITAL LAB (BEAKER)[address] [place] [address] Basophils/100 WBC (Bld) 0.5 % Normal 0.0-1.0 [facility] Comment on above: Performed By: #### [id number] ####[facility] ITAL LAB (BEAKER)[address] [place] [address] Eosinophils (Bld) [#/Vol] 0.46 10*3/uL Normal 0.00-0.50 [facility] Comment on above: Performed By: #### [id number] ####[facility] ITAL LAB (BEAKER)[address] [place] [address] Eosinophils/100 WBC (Bld) 4.7 % Normal 0.0-6.0 [facility] Comment on above: Performed By: #### [id number] ####[facility] ITAL LAB (BEAKER)[address] [place] [address] Erythrocyte distribution width (RBC) [Ratio] 18.1 % High 11.5-15.0 [facility] Comment on above: Performed By: #### [id number] ####[facility] ITAL LAB (BEAKER)[address] [place] [address] ERYTHROCYTE MEAN CORPUSCULAR HEMOGLOBIN CONCENTRATION (G/DL) BY AUTOMATED 32.0 g/dL Normal 32.0-35.0 [facility] Comment on above: Performed By: #### [id number] ####[facility] ITAL LAB (BEAKER)[address] [place] [address] Hematocrit (Bld) [Volume fraction] 36.3 % Low 39.0-55.0 [facility] Comment on above: Performed By: #### [id number] ####[facility] ITAL LAB (BEAKER)[address] [place] [address] Hemoglobin (Bld) [Mass/Vol] 11.6 g/dL Low 13.0-17.0 [facility] Comment on above: Performed By: #### [id number] ####[facility] ITAL LAB (BEAKER)[address] [place] [address] Immature granulocytes (Bld) [#/Vol] 0.06 10*3/uL Normal 0.00-0.20 [facility] Comment on above: Performed By: #### [id number] ####[facility] ITAL LAB (BEAKER)[address] [place] [address] Immature granulocytes/100 WBC (Bld) 0.6 % Normal 0.0-1.0 [facility] Comment on above: Performed By: #### [id number] ####[facility] ITAL LAB (BEAKER)[address] [place] [address] Lymphocytes (Bld) [#/Vol] 0.96 10*3/uL Low 1.20-4.00 [facility] Comment on above: Performed By: #### [id number] ####[facility] HOSP ITAL LAB (BEAKER)[address] [place] [address] Lymphocytes/100 WBC (Bld) 9.9 % Low 20.0-45.0 [facility] Comment on above: Performed By: #### [id number] ####[facility] ITAL LAB (BEAKER)[address] [place] [address] MCH (RBC) [Entitic mass] 27.2 pg Normal 27.0-33.0 [facility] Comment on above: Performed By: #### [id number] ####[facility] ITAL LAB (BEAKER)[address] [place] [address] MCV (RBC) [Entitic vol] 85.2 fL Normal 82.0-98.0 [facility] Comment on above: Performed By: #### [id number] ####[facility] ITAL LAB (BEAKER)[address] [place] [address] Monocytes (Bld) [#/Vol] 1.01 10*3/uL High 0.10-1.00 [facility] Comment on above: Performed By: #### [id number] ####[facility] ITAL LAB (BEAKER)[address] [place] [address] Monocytes/100 WBC (Bld) 10.4 % Normal 5.0-12.0 [facility] Comment on above: Performed By: #### [id number] ####[facility] ITAL LAB (BEAKER)[address] [place] [address] Neutrophils (Bld) [#/Vol] 7.20 10*3/uL Normal 1.60-7.60 [facility] Comment on above: Performed By: #### [id number] ####[facility] ITAL LAB (BEAKER)[address] [place] [address] Neutrophils/100 WBC (Bld) 73.9 % High 40.0-72.0 [facility] Comment on above: Performed By: #### [id number] ####[facility] ITAL LAB (BEAKER)[address] [place] [address] NRBC (PER 100 WBCS) BY AUTOMATED COUNT 0.0 % Normal 0 [facility] Comment on above: Performed By: #### [id number] ####[facility] ITAL LAB (BEAKER)[address] [place] [address] PLATELETS (10*3/UL) IN BLOOD AUTOMATED COUNT 270 10*3/uL Normal 150-400 [facility] Comment on above: Performed By: #### [id number] ####[facility] ITAL LAB (BEAKER)[address] [place] [address] RBC (Bld) [#/Vol] 4.26 10*6/uL Normal 4.20-5.70 [facility] Comment on above: Performed By: #### [id number] ####[facility] ITAL LAB (BEAKER)[address] [place] [address] WBC (Bld) [#/Vol] 9.74 10*3/uL Normal 4.00-10.60 [facility] Comment on above: Performed By: #### [id number] ####[facility] ITAL LAB (BEAKER)[address] [place] [address] MAGNESIUMon 08-19-2023 Magnesium [Mass/Vol] 2.1 mg/dL Normal 1.9-2.7 [facility] Comment on above: Performed By: #### [id number] ####[facility] [place] [address] POCT GLUCOSE METER UNSOLICIT ED RESULTSon 08-19-2023 Glucose [Mass/Vol] 165 mg/dL High 70-105 [facility] Comment on above: Order Comment: Waived Testing in the ED is performed under the ED CLIA certificate #[id number]. Result Comment: [email or web address] Performed By: #### [id number] ####[facility] LAB (BEAKER)[address] [place] [address] Glucose [Mass/Vol] 240 mg/dL High 70-105 [facility] Comment on above: Order Comment: Waived Testing in the ED is performed under the ED CLIA certificate #[id number]. Result Comment: [email or web address] Performed By: #### [id number] ####[facility] (BEAKER)[address] [place] [address] Glucose [Mass/Vol] 244 mg/dL High 70-105 [facility] Comment on above: Order Comment: Waived Testing in the ED is performed under the ED CLIA certificate #[id number]. Result Comment: vcar mon Performed By: #### L [id number] ####[facility] (BEAKER)[address] [place] [address] Glucose [Mass/Vol] 144 mg/dL High 70-105 [facility] Comment on above: Order Comment: Waived Testing in the ED is performed under the ED CLIA certificate #[id number]. Result Comment: vcar mon Performed By: #### L [id number] ####[facility] ([facility]ER)[address] [place] [address] 30on 08-18-2023 30 Normal [facility] BASIC METABOLIC PANELon - Anion gap [Moles/Vol] 11 mmol/L Normal 7-20 [facility] Comment on above: Performed By: #### [id number] ####[facility] LAB (BEAKER)[address] [place] [address] Calcium [Mass/Vol] 8.1 mg/dL Low 8.6-10.3 [facility] Comment on above: Performed By: #### [id number] ####[facility] LAB (BEAKER)[address] [place] [address] Chloride [Moles/Vol] 109 mmol/L High 98-107 [facility] Comment on above: Performed By: #### [id number] ####[facility] (BEAKER)[address] [place] [address] CO2 [Moles/Vol] 17 mmol/L Low 21-31 [facility] Comment on above: Performed By: #### [id number] ####[facility] LAB (BEAKER)[address] [place] [address] Creatinine [Mass/Vol] 1.16 mg/dL Normal 0.70-1.30 [facility] Comment on above: Performed By: #### [id number] ####[facility] ([facility])[address] [place] [address] GLOMERULAR FILTRATION RATE ML/MIN/1.73 SQ M.PREDICTED 68.6 mL/min/1.73m*2 Normal >60.0 [facility] Comment on above: Result Comment: The [facility]???s estimated glomerular filtration rate (eGFR) will [...] of individuals. Performed By: #### L [id number] ####[facility] ([facility])[address] [place] [address] Glucose [Mass/Vol] 238 mg/dL High 70-100 [facility] Comment on above: Performed By: #### [id number] ####[facility] ([facility])[address] [address] Potassium [Moles/Vol] 4.2 mmol/L Normal 3.5-5.1 [facility] Comment on above: Performed By: #### [id number] ####[facility] [address] Sodium [Moles/Vol] 133 mmol/L Low 136-145 [facility] Comment on above: Performed By: #### [id number] ####[facility] ([facility])[address] [place] [address] Urea nitrogen [Mass/Vol] 22 mg/dL Normal 7-25 [facility] Comment on above: Performed By: #### [id number] ####[facility] [place] [address] UREA NITROGEN/CREATIN INE (MASS RATIO) IN SER/PLAS 19.0 Normal [facility] Comment on above: Performed By: #### [id number] ####[facility] (BEAKER)[address] [place] [address] CBC WITH AUTO DIFFERENTIALon 08-18-2023 Basophils (Bld) [#/Vol] 0.05 10*3/uL Normal 0.00-0.20 [facility] Comment on above: Performed By: #### [id number] ####[facility] LAB (BEAKER)[address] [place] [address] Basophils/100 WBC (Bld) 0.6 % Normal 0.0-1.0 [facility] Comment on above: Performed By: #### [id number] ####[facility] LAB (BEAKER)[address] [place] [address] Eosinophils (Bld) [#/Vol] 0.42 10*3/uL Normal 0.00-0.50 [facility] Comment on above: Performed By: #### [id number] ####[facility] LAB (BEAKER)[address] [place] [address] Eosinophils/100 WBC (Bld) 5.0 % Normal 0.0-6.0 [facility] Comment on above: Performed By: #### [id number] ####[facility] LAB (BEAKER)[address] [place] [address] Erythrocyte distribution width (RBC) [Ratio] 17.8 % High 11.5-15.0 [facility] Comment on above: Performed By: #### [id number] ####[facility] ITAL LAB (BEAKER)[address] [place] [address] ERYTHROCYTE MEAN CORPUSCULAR HEMOGLOBIN CONCENTRATION (G/DL) BY AUTOMATED 32.6 g/dL Normal 32.0-35.0 [facility] Comment on above: Performed By: #### [id number] ####[facility] LAB (BEAKER)[address] [place] [address] Hematocrit (Bld) [Volume fraction] 34.4 % Low 39.0-55.0 [facility] Comment on above: Performed By: #### [id number] ####[facility]AL LAB (BEAKER)[address] [place] [address] Hemoglobin (Bld) [Mass/Vol] 11.2 g/dL Low 13.0-17.0 [facility] Comment on above: Performed By: #### [id number] ####[facility] ITAL LAB (BEAKER)[address] [place] [address] Immature granulocytes (Bld) [#/Vol] 0.05 10*3/uL Normal 0.00-0.20 [facility] Comment on above: Performed By: #### [id number] ####[facility] ITAL LAB (BEAKER)[address] [place] [address] Immature granulocytes/100 WBC (Bld) 0.6 % Normal 0.0-1.0 [facility] Comment on above: Performed By: #### [id number] ####[facility] ITAL LAB (BEAKER)[address] [place] [address] Lymphocytes (Bld) [#/Vol] 0.69 10*3/uL Low 1.20-4.00 [facility] Comment on above: Performed By: #### [id number] ####[facility]AL LAB (BEAKER)[address] [place] [address] Lymphocytes/100 WBC (Bld) 8.2 % Low 20.0-45.0 [facility] Comment on above: Performed By: #### [id number] ####[facility] ITAL LAB (BEAKER)[address] [place] [address] MCH (RBC) [Entitic mass] 27.9 pg Normal 27.0-33.0 [facility] Comment on above: Performed By: #### [id number] ####[facility]AL LAB (BEAKER)[address] [place] [address] MCV (RBC) [Entitic vol] 85.6 fL Normal 82.0-98.0 [facility] Comment on above: Performed By: #### [id number] ####[facility]AL LAB (BEAKER)[address] [place] [address] Monocytes (Bld) [#/Vol] 0.91 10*3/uL Normal 0.10-1.00 [facility] Comment on above: Performed By: #### [id number] ####[facility] LAB (BEAKER)[address] [place] [address] Monocytes/100 WBC (Bld) 10.8 % Normal 5.0-12.0 [facility] Comment on above: Performed By: #### [id number] ####[facility] LAB (BEAKER)[address] [place] [address] Neutrophils (Bld) [#/Vol] 6.34 10*3/uL Normal 1.60-7.60 [facility] Comment on above: Performed By: #### [id number] ####[facility]AL LAB (BEAKER)[address] [place] [address] Neutrophils/100 WBC (Bld) 74.8 % High 40.0-72.0 [facility] Comment on above: Performed By: #### [id number] ####[facility]AL LAB (BEAKER)[address] [place] [address] NRBC (PER 100 WBCS) BY AUTOMATED COUNT 0.0 % Normal 0 [facility] Comment on above: Performed By: #### [id number] ####[facility] LAB (BEAKER)[address] [place] [address] PLATELETS (10*3/UL) IN BLOOD AUTOMATED COUNT 233 10*3/uL Normal 150-400 [facility] Comment on above: Performed By: #### [id number] ####[facility] LAB (BEAKER)[address] [place] [address] RBC (Bld) [#/Vol] 4.02 10*6/uL Low 4.20-5.70 [facility] Comment on above: Performed By: #### [id number] ####[facility] LAB (BEAKER)[address] [place] [address] WBC (Bld) [#/Vol] 8.46 10*3/uL Normal 4.00-10.60 [facility] Comment on above: Performed By: #### [id number] ####[facility] LAB (BEAKER)[address] [place] [address] DIGOXIN LEVELon 08-18-2023 DIGOXIN (NG/ML) IN SER/PLAS 0.9 ng/mL Normal 0.7-2 [facility] Comment on above: Performed By: #### [id number] ####[facility] (BEAKER)[address] [place] [address] HEPATIC FUNCTION PANELon Albumin [Mass/Vol] 3.2 g/dL Low 3.5-5.7 [facility] Comment on above: Performed By: #### [id number] ####[facility] (BEAKER)[address] [place] [address] ALP [Catalytic activity/Vol] 241 U/L High 34-104 [facility] Comment on above: Performed By: #### [id number] ####[facility] (BEAKER)[address] [place] [address] ALT [Catalytic activity/Vol] 690 U/L High 7-52 [facility] Comment on above: Performed By: #### [id number] ####[facility] (BEAKER)[address] [place] [address] AST [Catalytic activity/Vol] 111 U/L High 13-39 [facility] Comment on above: Performed By: #### [id number] ####[facility] (BEAKER)[address] [place] [address] Bilirubin [Mass/Vol] 0.5 mg/dL Normal 0.3-1.0 [facility] Comment on above: Performed By: #### [id number] ####[facility] (BEAKER)[address] [place] [address] Magnesium [Mass/Vol] 0.2 mg/dL Normal 0-0.2 [facility] Comment on above: Performed By: #### [id number] ####[facility] (BEAKER)[address] [place] [address] Protein [Mass/Vol] 6.1 g/dL Normal 6.0-8.3 [facility] Comment on above: Performed By: #### [id number] ####[facility] ([facility]ER)[address] [place] [address] MAGNESIUMon 08-18-2023 Magnesium [Mass/Vol] 2.2 mg/dL Normal 1.9-2.7 [facility] Comment on above: Performed By: #### [id number] ####[facility] ([facility])[address] [place] [address] NURSNOTEon 08-18-2023 NURSNOTE Normal [facility] NURSNOTE Normal [facility] POCT GLUCOSE METER UNSOLICIT ED RESULTSon 08-18-2023 Glucose [Mass/Vol] 248 mg/dL High 70-105 [facility] Comment on above: Order Comment: Waived Testing in the ED is performed under the ED CLIA certificate #[id number]. Result Comment: [email or web address] Performed By: #### L [id number] ####[facility] ([facility])[address] [place] [address] Glucose [Mass/Vol] 145 mg/dL High 70-105 [facility] Comment on above: Order Comment: Waived Testing in the ED is performed under the ED CLIA certificate #[id number]. Result Comment: vcar mon Performed By: #### L [id number] ####[facility] [place] [address] Glucose [Mass/Vol] 240 mg/dL High 70-105 [facility] Comment on above: Order Comment: Waived Testing in the ED is performed under the ED CLIA certificate #[id number]. Result Comment: [email or web address] Performed By: #### L [id number] ####[facility] (BEAKER)[address] [place] [address] Glucose [Mass/Vol] 188 mg/dL High 70-105 [facility] Comment on above: Order Comment: Waived Testing in the ED is performed under the ED CLIA certificate #[id number]. Result Comment: vcar mon Performed By: #### L [id number] ####[facility] ([facility]ER)[address] [place] [address] 30on 08-17-2023 30 Normal [facility] CBC WITH AUTO DIFFERENTIALon 08-17-2023 Basophils (Bld) [#/Vol] 0.03 10*3/uL Normal 0.00-0.20 [facility] Comment on above: Performed By: #### [id number] ####[facility] (BEAKER)[address] [place] [address] Basophils/100 WBC (Bld) 0.4 % Normal 0.0-1.0 [facility] Comment on above: Performed By: #### [id number] ####[facility] (BEAKER)[address] [place] [address] Eosinophils (Bld) [#/Vol] 0.33 10*3/uL Normal 0.00-0.50 [facility] Comment on above: Performed By: #### [id number] ####[facility]AL LAB (BEAKER)[address] [place] [address] Eosinophils/100 WBC (Bld) 3.9 % Normal 0.0-6.0 [facility] Comment on above: Performed By: #### [id number] ####[facility]AL LAB (BEAKER)[address] [place] [address] Erythrocyte distribution width (RBC) [Ratio] 17.2 % High 11.5-15.0 [facility] Comment on above: Performed By: #### [id number] ####[facility] ITAL LAB (BEAKER)[address] [place] [address] ERYTHROCYTE MEAN CORPUSCULAR HEMOGLOBIN CONCENTRATION (G/DL) BY AUTOMATED 33.4 g/dL Normal 32.0-35.0 [facility] Comment on above: Performed By: #### [id number] ####[facility] LAB (BEAKER)[address] [place] [address] Hematocrit (Bld) [Volume fraction] 30.5 % Low 39.0-55.0 [facility] Comment on above: Performed By: #### [id number] ####[facility] (BEAKER)[address] [place] [address] Hemoglobin (Bld) [Mass/Vol] 10.2 g/dL Low 13.0-17.0 [facility] Comment on above: Performed By: #### [id number] ####[facility] ITAL LAB (BEAKER)[address] [place] [address] Immature granulocytes (Bld) [#/Vol] 0.04 10*3/uL Normal 0.00-0.20 [facility] Comment on above: Performed By: #### [id number] ####[facility]AL LAB (BEAKER)[address] [place] [address] Immature granulocytes/100 WBC (Bld) 0.5 % Normal 0.0-1.0 [facility] Comment on above: Performed By: #### [id number] ####[facility] ITAL LAB (BEAKER)[address] [place] [address] Lymphocytes (Bld) [#/Vol] 0.44 10*3/uL Low 1.20-4.00 [facility] Comment on above: Performed By: #### [id number] ####[facility]AL LAB (BEAKER)[address] [place] [address] Lymphocytes/100 WBC (Bld) 5.2 % Low 20.0-45.0 [facility] Comment on above: Performed By: #### [id number] ####[facility]AL LAB (BEAKER)[address] [place] [address] MCH (RBC) [Entitic mass] 27.9 pg Normal 27.0-33.0 [facility] Comment on above: Performed By: #### [id number] ####[facility]AL LAB (BEAKER)[address] [place] [address] MCV (RBC) [Entitic vol] 83.3 fL Normal 82.0-98.0 [facility] Comment on above: Performed By: #### [id number] ####[facility] ITAL LAB (BEAKER)[address] [place] [address] Monocytes (Bld) [#/Vol] 0.83 10*3/uL Normal 0.10-1.00 [facility] Comment on above: Performed By: #### [id number] ####[facility] ITAL LAB (BEAKER)[address] [place] [address] Monocytes/100 WBC (Bld) 9.9 % Normal 5.0-12.0 [facility] Comment on above: Performed By: #### [id number] ####[facility] ITAL LAB (BEAKER)[address] [place] [address] Neutrophils (Bld) [#/Vol] 6.73 10*3/uL Normal 1.60-7.60 [facility] Comment on above: Performed By: #### [id number] ####[facility] ITAL LAB (BEAKER)[address] [place] [address] Neutrophils/100 WBC (Bld) 80.1 % High 40.0-72.0 [facility] Comment on above: Performed By: #### [id number] ####[facility] ITAL LAB (BEAKER)[address] [place] [address] NRBC (PER 100 WBCS) BY AUTOMATED COUNT 0.0 % Normal 0 [facility] Comment on above: Performed By: #### [id number] ####[facility]AL LAB (BEAKER)[address] [place] [address] PLATELETS (10*3/UL) IN BLOOD AUTOMATED COUNT 233 10*3/uL Normal 150-400 [facility] Comment on above: Performed By: #### [id number] ####[facility] ITAL LAB (BEAKER)[address] [place] [address] RBC (Bld) [#/Vol] 3.66 10*6/uL Low 4.20-5.70 [facility] Comment on above: Performed By: #### [id number] ####[facility] ITAL LAB (BEAKER)[address] [place] [address] WBC (Bld) [#/Vol] 8.40 10*3/uL Normal 4.00-10.60 [facility] Comment on above: Performed By: #### [id number] ####[facility] ITAL LAB (BEAKER)[address] [place] [address] COMPREHENSIVE METABOLIC PANE Jayden 08-17-2023 Albumin [Mass/Vol] 2.9 g/dL Low 3.5-5.7 [facility] Comment on above: Performed By: #### [id number] ####[facility] LAB (BEAKER)[address] [place] [address] ALP [Catalytic activity/Vol] 216 U/L High 34-104 [facility] Comment on above: Performed By: #### [id number] ####[facility] LAB (BEAKER)[address] [place] [address] ALT [Catalytic activity/Vol] 951 U/L High 7-52 [facility] Comment on above: Performed By: #### [id number] ####[facility] LAB (BEAKER)[address] [place] [address] Anion gap [Moles/Vol] 11 mmol/L Normal 7-20 [facility] Comment on above: Performed By: #### [id number] ####[facility] LAB (BEAKER)[address] [place] [address] AST [Catalytic activity/Vol] 312 U/L High 13-39 [facility] Comment on above: Performed By: #### [id number] ####[facility] LAB (BEAKER)[address] [place] [address] Bilirubin [Mass/Vol] 0.6 mg/dL Normal 0.3-1.0 [facility] Comment on above: Performed By: #### [id number] ####[facility] [place] [address] Calcium [Mass/Vol] 7.8 mg/dL Low 8.6-10.3 [facility] Comment on above: Performed By: #### [id number] ####[facility] ([facility])[address] [place] [address] Chloride [Moles/Vol] 104 mmol/L Normal 98-107 [facility] Comment on above: Performed By: #### [id number] ####[facility] LAB ([facility])[address] [place] [address] CO2 [Moles/Vol] 20 mmol/L Low 21-31 [facility] Comment on above: Performed By: #### [id number] ####[facility] LAB ([facility])[address] [place] [address] Creatinine [Mass/Vol] 1.26 mg/dL Normal 0.70-1.30 [facility] Comment on above: Performed By: #### [id number] ####[facility] LAB ([facility])[address] [place] [address] GLOMERULAR FILTRATION RATE ML/MIN/1.73 SQ M.PREDICTED 62.1 mL/min/1.73m*2 Normal >60.0 [facility] Comment on above: Result Comment: The [facility]???s estimated glomerular filtration rate (eGFR) will [...] of individuals. Performed By: #### L [id number] ####[facility] (BEAKER)[address] [place] [address] Glucose [Mass/Vol] 108 mg/dL High 70-100 [facility] Comment on above: Performed By: #### [id number] ####[facility] LAB (BEAKER)[address] [place] [address] Potassium [Moles/Vol] 3.7 mmol/L Normal 3.5-5.1 [facility] Comment on above: Performed By: #### [id number] ####[facility] (BEAKER)[address] [place] [address] Protein [Mass/Vol] 5.6 g/dL Low 6.0-8.3 [facility] Comment on above: Performed By: #### [id number] ####[facility] [place] [address] Sodium [Moles/Vol] 131 mmol/L Low 136-145 [facility] Comment on above: Performed By: #### [id number] ####[facility] LAB (BEAKER)[address] [facility] [place] [address] Urea nitrogen [Mass/Vol] 27 mg/dL High 7-25 [facility] Comment on above: Performed By: #### [id number] ####[facility] LAB (BEAKER)[address] [place] [address] UREA NITROGEN/CREATIN INE (MASS RATIO) IN SER/PLAS 21.4 Normal [facility] Comment on above: Performed By: #### [id number] ####[facility] (BEAKER)[address] [place] [address] GRAM STAINon 08-17-2023 GRAM STAIN RESULT Normal [facility] Comment on above: Result Comment: >25 Squamous Epithelial Cells Per Low Power Field<10 Polys Per Low Power FieldSpecimen contains >25 Epithelial Cells/LPF, unsuitable for culture. Please submit a new specimen Performed By: #### L [id number] ####[facility] ([facility]ER)[address] [place] [address] MAGNESIUMon 08-17-2023 Magnesium [Mass/Vol] 2.1 mg/dL Normal 1.9-2.7 [facility] Comment on above: Performed By: #### [id number] ####[facility] ([facility])[address] [place] [address] MRSA/MSSA DNA NASALon 2023 MRSA DNA Negative Normal Negative [facility] Comment on above: Order Comment: Testing [...] preclude nasal colonization. Performed By: #### L [id number] ####[facility] ([facility])[address] [place] [address] MSSA DNA Negative Normal Negative [facility] Comment on above: Order Comment: Testing [...] preclude nasal colonization. Performed By: #### L [id number] ####[facility] ([facility])[address] [place] [address] PHOSPHORUSon 08-17-2023 Magnesium [Mass/Vol] 2.5 mg/dL Normal 2.5-5.0 [facility] Comment on above: Performed By: #### [id number] ####[facility] ([facility])[address] [place] [address] POCT GLUCOSE METER UNSOLICIT ED RESULTSon 08-17-2023 Glucose [Mass/Vol] 179 mg/dL High 70-105 [facility] Comment on above: Order Comment: Waived Testing in the ED is performed under the ED CLIA certificate #[id number]. Result Comment: [email or web address] Performed By: #### L [id number] ####[facility] ([facility])[address] [place] [address] Glucose [Mass/Vol] 170 mg/dL High 70-105 [facility] Comment on above: Order Comment: Waived Testing in the ED is performed under the ED CLIA certificate #[id number]. Result Comment: [email or web address] Performed By: #### L [id number] ####[facility] ([facility])[address] [place] [address] Glucose [Mass/Vol] 209 mg/dL High 70-105 [facility] Comment on above: Order Comment: Waived Testing in the ED is performed under the ED CLIA certificate #[id number]. Result Comment: [email or web address] Performed By: #### L [id number] ####[facility] ([facility])[address] [place] [address] Glucose [Mass/Vol] 109 mg/dL High 70-105 [facility] Comment on above: Order Comment: Waived Testing in the ED is performed under the ED CLIA certificate #[id number]. Result Comment: [email or web address] Performed By: #### L [id number] ####[facility] ([facility])[address] [place], [place] [id number] VANCOMYCIN TIMEDon 4 VANCOMYCIN IN SER/PLAS - TIMED 10.9 Low 20.0-40.0 [facility] Comment on above: Performed By: #### [id number] ####[facility] HOSP ITAL LAB ([facility])[address] [place] [address] 30on 08-16-2023 30 Normal [facility] ANESon 08-16-2023 ANES Normal [facility] ARTERIAL BLOOD GAS WITH IONI ZED CALCIUMon 08-16-2023 Base excess Calc (Bld) [Moles/Vol] -0.3000 mmol/L Normal -2.0-3.0 [facility] Comment on above: Performed By: #### [id number] ####[facility] RESP IRATORY [id number] [place] [address] [facility] CALCIUM IONIZED (MMOL/L) IN BLOOD 1.16 mmol/L Normal 1.15-1.33 [facility] Comment on above: Performed By: #### [id number] ####[facility] RESP IRATORY [id number] [place] [address] [facility] CO2 (Bld) [Partial pressure] 30 mm[Hg] Low 35-48 [facility] Comment on above: Performed By: #### [id number] ####[facility] RESP IRATORY [id number] [place] [address] [facility] HCO3 (Bld) [Moles/Vol] 22.3 mmol/L Normal 21.0-28.0 [facility] Comment on above: Performed By: #### [id number] ####[facility] RESP IRATORY [id number] [place] [address] [facility] Oxygen (Bld) [Partial pressure] 88 mm[Hg] Normal 83-100 [facility] Comment on above: Performed By: #### [id number] ####[facility] RESP IRATORY [id number] [place] [place] [address] [facility] OXYGEN SATURATION (%) IN ARTERIAL BLOOD 97.5 % Normal 94.0-98.0 [facility] Comment on above: Performed By: #### [id number] ####[facility] RESP IRATORY [id number] [place] [address] [facility] pH (Bld) 7.48 [pH] High 7.35-7.45 [facility] Comment on above: Performed By: #### [id number] ####[facility] RESP IRATORY [id number] [place] [address] [facility] SOURCE OF OXYGEN Room Air Normal [facility] Comment on above: Performed By: #### [id number] ####[facility] RESP IRATORY [id number] [place] [address] [facility] BLOOD CULTUREon 08-16-2023 Bacteria identified Cx Nom (Bld) No growth at 5 days Normal [facility] Comment on above: Order Comment: From a different site avis n #1. Performed By: #### L [id number] ####[facility] HOSPITAL LAB ([facility])[address] [place] [address] CBC WITH AUTO DIFFERENTIALon 08-16-2023 Basophils (Bld) [#/Vol] 0.03 10*3/uL Normal 0.00-0.20 [facility] Comment on above: Performed By: #### [id number] ####[facility] ITAL LAB ([facility])[address] [place] [address] Basophils/100 WBC (Bld) 0.3 % Normal 0.0-1.0 [facility] Comment on above: Performed By: #### [id number] ####[facility] ITAL LAB (BE[facility])[address] [place] [address] Eosinophils (Bld) [#/Vol] 0.09 10*3/uL Normal 0.00-0.50 [facility] Comment on above: Performed By: #### [id number] ####[facility] ITAL LAB ([facility])[address] [place] [address] Eosinophils/100 WBC (Bld) 0.8 % Normal 0.0-6.0 [facility] Comment on above: Performed By: #### [id number] ####[facility] ITAL LAB ([facility])[address] [place] [address] Erythrocyte distribution width (RBC) [Ratio] 17.2 % High 11.5-15.0 [facility] Comment on above: Performed By: #### [id number] ####[facility] ITAL LAB (BE[facility])[address] [place] [address] ERYTHROCYTE MEAN CORPUSCULAR HEMOGLOBIN CONCENTRATION (G/DL) BY AUTOMATED 33.8 g/dL Normal 32.0-35.0 [facility] Comment on above: Performed By: #### [id number] ####[facility] ITAL LAB ([facility])[address] [place] [address] Hematocrit (Bld) [Volume fraction] 32.0 % Low 39.0-55.0 [facility] Comment on above: Performed By: #### [id number] ####[facility] HOSP ITAL LAB ([facility])[address] [place] [address] Hemoglobin (Bld) [Mass/Vol] 10.8 g/dL Low 13.0-17.0 [facility] Comment on above: Performed By: #### [id number] ####[facility] HOSP ITAL LAB ([facility])[address] [place] [address] Immature granulocytes (Bld) [#/Vol] 0.07 10*3/uL Normal 0.00-0.20 [facility] Comment on above: Performed By: #### [id number] ####[facility] ITAL LAB ([facility])[address] [place] [address] Immature granulocytes/100 WBC (Bld) 0.7 % Normal 0.0-1.0 [facility] Comment on above: Performed By: #### [id number] ####[facility] HOSP ITAL LAB ([facility])[address] [place] [address] Lymphocytes (Bld) [#/Vol] 0.49 10*3/uL Low 1.20-4.00 [facility] Comment on above: Performed By: #### [id number] ####[facility] HOSP ITAL LAB ([facility])[address] [place] [address] Lymphocytes/100 WBC (Bld) 4.6 % Low 20.0-45.0 [facility] Comment on above: Performed By: #### [id number] ####[facility] HOSP ITAL LAB ([facility])[address] [place] [address] MCH (RBC) [Entitic mass] 27.8 pg Normal 27.0-33.0 [facility] Comment on above: Performed By: #### [id number] ####[facility] HOSP ITAL LAB ([facility])[address] [place] [address] MCV (RBC) [Entitic vol] 82.3 fL Normal 82.0-98.0 [facility] Comment on above: Performed By: #### [id number] ####[facility] HOSP ITAL LAB ([facility])[address] [place] [address] Monocytes (Bld) [#/Vol] 0.73 10*3/uL Normal 0.10-1.00 [facility] Comment on above: Performed By: #### [id number] ####[facility] HOSP ITAL LAB ([facility])[address] [place] [address] Monocytes/100 WBC (Bld) 6.8 % Normal 5.0-12.0 [facility] Comment on above: Performed By: #### [id number] ####[facility] HOSP ITAL LAB ([facility])[address] [place] [address] Neutrophils (Bld) [#/Vol] 9.34 10*3/uL High 1.60-7.60 [facility] Comment on above: Performed By: #### [id number] ####[facility] HOSP ITAL LAB ([facility])[address] [place] [address] Neutrophils/100 WBC (Bld) 86.8 % High 40.0-72.0 [facility] Comment on above: Performed By: #### [id number] ####[facility] HOSP ITAL LAB ([facility])[address] [place] [address] NRBC (PER 100 WBCS) BY AUTOMATED COUNT 0.0 % Normal 0 [facility] Comment on above: Performed By: #### [id number] ####[facility] HOSP ITAL LAB ([facility])[address] [place] [address] PLATELETS (10*3/UL) IN BLOOD AUTOMATED COUNT 233 10*3/uL Normal 150-400 [facility] Comment on above: Performed By: #### [id number] ####[facility] HOSP ITAL LAB ([facility])[address] [place] [address] RBC (Bld) [#/Vol] 3.89 10*6/uL Low 4.20-5.70 [facility] Comment on above: Performed By: #### [id number] ####[facility] HOSP ITAL LAB ([facility])[address] [place] [address] WBC (Bld) [#/Vol] 10.75 10*3/uL High 4.00-10.60 [facility] Comment on above: Performed By: #### [id number] ####[facility] HOSP ITAL LAB ([facility])[address] [place] [address] COMPREHENSIVE METABOLIC PANE Jayden 08-16-2023 Albumin [Mass/Vol] 3.0 g/dL Low 3.5-5.7 [facility] Comment on above: Performed By: #### [id number] ####[facility] HOSPIT AL LAB (BE[facility]ER)[address] [place] [address] ALP [Catalytic activity/Vol] 302 U/L High 34-104 [facility] Comment on above: Performed By: #### [id number] ####[facility] HOSPIT AL LAB (BE[facility]ER)[address] [place] [address] ALT [Catalytic activity/Vol] 1399 U/L High 7-52 [facility] Comment on above: Performed By: #### [id number] ####[facility] HOSPIT AL LAB (BE[facility]ER)[address] [place] [address] Anion gap [Moles/Vol] 12 mmol/L Normal 7-20 [facility] Comment on above: Performed By: #### [id number] ####[facility] HOSPIT AL LAB (BE[facility]ER)[address] [place] [address] AST [Catalytic activity/Vol] 996 U/L High 13-39 [facility] Comment on above: Performed By: #### [id number] ####[facility] HOSPIT AL LAB (BEAKER)[address] [place] [address] Bilirubin [Mass/Vol] 0.7 mg/dL Normal 0.3-1.0 [facility] Comment on above: Performed By: #### [id number] ####[facility] HOSPIT AL LAB (BEAKER)[address] [place] [address] Calcium [Mass/Vol] 8.1 mg/dL Low 8.6-10.3 [facility] Comment on above: Performed By: #### [id number] ####[facility] [place] [address] Chloride [Moles/Vol] 98 mmol/L Normal 98-107 [facility] Comment on above: Performed By: #### [id number] ####[facility] LAB (BEAKER)[address] [place] [address] CO2 [Moles/Vol] 23 mmol/L Normal 21-31 [facility] Comment on above: Performed By: #### [id number] ####[facility] AL LAB (BEAKER)[address] [place] [address] Creatinine [Mass/Vol] 1.44 mg/dL High 0.70-1.30 [facility] Comment on above: Performed By: #### [id number] ####[facility] LAB (BEAKER)[address] [place] [address] GLOMERULAR FILTRATION RATE ML/MIN/1.73 SQ M.PREDICTED 52.9 mL/min/1.73m*2 Low >60.0 [facility] Comment on above: Result Comment: The [facility]???s estimated glomerular filtration rate (eGFR) will [...] of individuals. Performed By: #### L [id number] ####[facility] HOSPITAL LAB (BE[facility]ER)[address] [place] [address] Glucose [Mass/Vol] 145 mg/dL High 70-100 [facility] Comment on above: Performed By: #### [id number] ####[facility] AL LAB (BEAKER)[address] [place] [address] Potassium [Moles/Vol] 3.9 mmol/L Normal 3.5-5.1 [facility] Comment on above: Performed By: #### [id number] ####[facility] HOSPIT AL LAB (BE[facility])[address] [place] [address] Protein [Mass/Vol] 5.9 g/dL Low 6.0-8.3 [facility] Comment on above: Performed By: #### [id number] ####[facility] HOSPIT AL LAB ([facility])[address] [facility] [address] Sodium [Moles/Vol] 129 mmol/L Low 136-145 [facility] Comment on above: Performed By: #### [id number] ####[facility] HOSPIT AL LAB ([facility])[address] [facility] [address] Urea nitrogen [Mass/Vol] 34 mg/dL High 7-25 [facility] Comment on above: Performed By: #### [id number] ####[facility] HOSPIT AL LAB ([facility])[address] [place] [address] UREA NITROGEN/CREATIN INE (MASS RATIO) IN SER/PLAS 23.6 Normal [facility] Comment on above: Performed By: #### [id number] ####[facility] HOSPIT AL LAB ([facility])[address] [place] [address] CORTISOLon 08-16-2023 CORTISOL (UG/DL) IN SER/PLAS 21.6 ug/dL Normal 6-23 [facility] Comment on above: Performed By: #### [id number] ####[facility] HOSPIT AL LAB ([facility])[address] [place] [address] HPon 08-16-2023 HP Normal [facility] LACTIC ACID WITH 4 HOUR REFL EXon 08-16-2023 LACTATE (MMOL/L) IN SER/PLAS 0.6 mmol/L Normal 0.5-2.2 [facility] Comment on above: Performed By: #### [id number] ####[facility] HOS PITAL LAB ([facility])[address] [facility] [address] LEGIONELLA ANTIGEN, URINEon 08-16-2023 LEGIONELLA AG, UR Negative Normal NEG [facility] Comment on above: Result Comment: L. pneumophila serogroup 1 antigen not detected.A negative result does not exclude infection with Leginella pnemophila serogroup 1 nor does it rule out other microbial-caused respiratory infections of disease caused by other serogroups of Legionella pneumophila.Test Performed by [employer] [address] [place] [id number] - Released 08/17/2023 08:21 Performed By: #### [id number] ####[facility] [id number] [place] [address] MAGNESIUMon 08-16-2023 Magnesium [Mass/Vol] 2.2 mg/dL Normal 1.9-2.7 [facility] Comment on above: Performed By: #### [id number] ####[facility] HOSPI BRONWYN LAB ([facility])[address] [place] [address] PHOSPHORUSon 08-16-2023 Magnesium [Mass/Vol] 2.7 mg/dL Normal 2.5-5.0 [facility] Comment on above: Performed By: #### [id number] ####[facility] [place] [address] POCT GLUCOSE METER UNSOLICIT ED RESULTSon 08-16-2023 Glucose [Mass/Vol] 171 mg/dL High 70-105 [facility] Comment on above: Order Comment: Waived Testing in the ED is performed under the ED CLIA certificate #[id number]. Result Comment: anau Performed By: #### L [id number] ####[facility] ([facility] [place] [address] Glucose [Mass/Vol] 114 mg/dL High 70-105 [facility] Comment on above: Order Comment: Waived Testing in the ED is performed under the ED CLIA certificate #[id number]. Result Comment: [email or web address] Performed By: #### L [id number] ####[facility] LAB (BEAKER)[address] [place] [address] Glucose [Mass/Vol] 137 mg/dL High 70-105 [facility] Comment on above: Order Comment: Waived Testing in the ED is performed under the ED CLIA certificate #[id number]. Result Comment: [email or web address] Performed By: #### L [id number] ####[facility] ([facility])[address] [place] [address] PROCALCITONIN TESTon 024 PROCALCITONIN IN BLOOD 0.88 ng/mL High 0.00-0.10 [facility] Comment on above: Result Comment: Suspected [...] and initial PCT<0.5ng/mL Performed By: #### L [id number] ####[facility] LAB (BE[facility])[address] [place] [address] STREP PNEUMONIAE ANTIGEN, UR INEon 08-16-2023 STREPTOCOCCUS PNEUMONIAE AG PRESENCE IN URINE Negative Normal Negative [facility] Comment on above: Performed By: #### [id number] ####[facility] ITAL LAB (BEAKER)[address] [place] [address] URINALYSIS MICROSCOPIC WITH REFLEX CULTUREon 02-19-2024 CASTS IN URINE Normal [facility] Comment on above: Performed By: #### [id number] ####[facility] HOSP ITAL LAB (BEAKER)[address] [place] [address] CRYSTALS IN URINE Normal [facility] Comment on above: Performed By: #### [id number] ####[facility] HOSP ITAL LAB (BEAKER)[address] [place] [address] OTHER MICROSCOPIC ELEMENTS Normal [facility] Comment on above: Performed By: #### [id number] ####[facility] HOSP ITAL LAB (BE[facility])[address] [place] [address] RBC (#/HPF) IN URINE SEDIMENT 6-10 Abnormal None Seen [facility] Comment on above: Performed By: #### [id number] ####[facility] HOSP ITAL LAB (BE[facility])[address] [place] [address] SQUAMOUS EPITHELIAL CELLS (#/HPF) IN URINE SEDIMENT Occasional Normal None Seen, Occasional [facility] Comment on above: Performed By: #### [id number] ####[facility] HOSP ITAL LAB (BEAKER)[address] [place] [address] WBC (LEUKOCYTE) (#/HPF) IN URINE SEDIMENT 3-5 Abnormal None Seen [facility] Comment on above: Performed By: #### [id number] ####[facility] HOSP ITAL LAB (BEAKER)[address] [place] [address] URINALYSIS WITH REFLEX CULTU REon 08-16-2023 BILIRUBIN, TOTAL PRESENCE IN URINE Negative Normal Negative [facility] Comment on above: Performed By: #### [id number] ####[facility] HOSP ITAL LAB (BEAKER)[address] [place] [address] Clarity (U) Clear Normal Clear [facility] Comment on above: Performed By: #### [id number] ####[facility] HOSP ITAL LAB (BEAKER)[address] [place] [address] Color (U) Yellow Normal Yellow [facility] Comment on above: Performed By: #### [id number] ####[facility] HOSP ITAL LAB (BEAKER)[address] [place] [address] Glucose (U) [Mass/Vol] mg/dL Abnormal Negative [facility] Comment on above: Performed By: #### [id number] ####[facility] HOSP ITAL LAB (BEAKER)[address] [place] [address] HEMOGLOBIN PRESENCE IN URINE Small Abnormal Negative [facility] Comment on above: Performed By: #### [id number] ####[facility] HOSP ITAL LAB (BEAKER)[address] [place] [address] Ketones Ql (U) 20 mg/dL Abnormal Negative [facility] Comment on above: Performed By: #### [id number] ####[facility] HOSP ITAL LAB (BEAKER)[address] [place] [address] LEUKOCYTE ESTERASE PRESENCE IN URINE BY TEST STRIP Negative Normal Negative [facility] Comment on above: Performed By: #### [id number] ####[facility] HOSP ITAL LAB (BEAKER)[address] [place] [address] NITRITE PRESENCE IN URINE Negative Normal Negative [facility] Comment on above: Performed By: #### [id number] ####[facility] HOSP ITAL LAB (BEAKER)[address] [place] [address] pH (U) 7.0 [pH] Normal 5.0-8.0 [facility] Comment on above: Performed By: #### [id number] ####[facility] HOSP ITAL LAB (BEAKER)[address] [place] [address] Protein (U) [Mass/Vol] 100 mg/dL Abnormal Negative [facility] Comment on above: Performed By: #### [id number] ####[facility] HOSP ITAL LAB (BEAKER)[address] [place] [address] Specific gravity (U) [Rel density] 1.013 Low 1.015-1.020 [facility] Comment on above: Performed By: #### [id number] ####[facility] HOSP ITAL LAB (BEAKER)[address] [place] [address] UROBILINOGEN (EU/DL) IN URINE 2.0 EU/dL Abnormal Negative [facility] Comment on above: Performed By: #### [id number] ####[facility] HOSP ITAL LAB (BEAKER)[address] [place] [address] BASIC METABOLIC PANELon 07-29 Anion gap [Moles/Vol] 17 mmol/L Normal 7-20 [facility] Comment on above: Performed By: #### [id number] ####[facility] HOSPIT AL LAB (BEAKER)[address] [place] [address] Calcium [Mass/Vol] 8.7 mg/dL Normal 8.6-10.3 [facility] Comment on above: Performed By: #### [id number] ####[facility] ([facility] [place] [address] Chloride [Moles/Vol] 95 mmol/L Low 98-107 [facility] Comment on above: Performed By: #### [id number] ####[facility] HOSP[facility] AL LAB (BEAKER)[address] [place] [address] CO2 [Moles/Vol] 19 mmol/L Low 21-31 [facility] Comment on above: Performed By: #### [id number] ####[facility] HOSP[facility] AL LAB (BEAKER)[address] [place] [address] Creatinine [Mass/Vol] 1.07 mg/dL Normal 0.70-1.30 [facility] Comment on above: Performed By: #### [id number] ####[facility] HOSP[facility] AL LAB (BEAKER)[address] [place] [address] GLOMERULAR FILTRATION RATE ML/MIN/1.73 SQ M.PREDICTED 75.6 mL/min/1.73m*2 Normal >60.0 [facility] Comment on above: Result Comment: The [facility]???s estimated glomerular filtration rate (eGFR) will [...] of individuals. Performed By: #### L [id number] ####[facility] LAB (BEAKER)[address] [place] [address] Glucose [Mass/Vol] 262 mg/dL High 70-100 [facility] Comment on above: Performed By: #### [id number] ####[facility] AL LAB ([facility])[address] [place] [address] Potassium [Moles/Vol] 4.1 mmol/L Normal 3.5-5.1 [facility] Comment on above: Performed By: #### [id number] ####[facility] ([facility] [place] [address] Sodium [Moles/Vol] 127 mmol/L Low 136-145 [facility] Comment on above: Performed By: #### [id number] ####[facility] ([facility])[address] [place] [address] Urea nitrogen [Mass/Vol] 30 mg/dL High 7-25 [facility] Comment on above: Performed By: #### [id number] ####[facility] AL LAB (BEAKER)[address] [place] [address] UREA NITROGEN/CREATIN INE (MASS RATIO) IN SER/PLAS 28.0 Normal [facility] Comment on above: Performed By: #### [id number] ####[facility] AL LAB (BEAKER)[address] [place] [address] CBC WITH AUTO DIFFERENTIALon 08-15-2023 Basophils (Bld) [#/Vol] 0.01 10*3/uL Normal 0.00-0.20 [facility] Comment on above: Performed By: #### [id number] ####[facility] HOSP ITAL LAB (BEAKER)[address] [place] [address] Basophils/100 WBC (Bld) 0.1 % Normal 0.0-1.0 [facility] Comment on above: Performed By: #### [id number] ####[facility] H[facility] ITAL LAB (BEAKER)[address] [place] [address] Eosinophils (Bld) [#/Vol] 0.01 10*3/uL Normal 0.00-0.50 [facility] Comment on above: Performed By: #### [id number] ####[facility] ITAL LAB (BEAKER)[address] [place] [address] Eosinophils/100 WBC (Bld) 0.1 % Normal 0.0-6.0 [facility] Comment on above: Performed By: #### [id number] ####[facility] ITAL LAB (BEAKER)[address] [place] [address] Erythrocyte distribution width (RBC) [Ratio] 17.2 % High 11.5-15.0 [facility] Comment on above: Performed By: #### [id number] ####[facility] ITAL LAB (BEAKER)[address] [place] [address] ERYTHROCYTE MEAN CORPUSCULAR HEMOGLOBIN CONCENTRATION (G/DL) BY AUTOMATED 31.9 g/dL Low 32.0-35.0 [facility] Comment on above: Performed By: #### [id number] ####[facility] ITAL LAB (BEAKER)[address] [place] [address] Hematocrit (Bld) [Volume fraction] 31.0 % Low 39.0-55.0 [facility] Comment on above: Performed By: #### [id number] ####[facility] ITAL LAB (BEAKER)[address] [place] [address] Hemoglobin (Bld) [Mass/Vol] 9.9 g/dL Low 13.0-17.0 [facility] Comment on above: Performed By: #### [id number] ####[facility] ITAL LAB (BEAKER)[address] [place] [address] Immature granulocytes (Bld) [#/Vol] 0.15 10*3/uL Normal 0.00-0.20 [facility] Comment on above: Performed By: #### [id number] ####[facility] ITAL [facility] (BEAKER)[address] [place] [address] Immature granulocytes/100 WBC (Bld) 1.6 % High 0.0-1.0 [facility] Comment on above: Performed By: #### [id number] ####[facility] ITAL [facility] (BEAKER)[address] [place] [address] Lymphocytes (Bld) [#/Vol] 0.30 10*3/uL Low 1.20-4.00 [facility] Comment on above: Performed By: #### [id number] ####[facility] HOS[facility] ITAL LAB (BEAKER)[address] [place] [address] Lymphocytes/100 WBC (Bld) 3.2 % Low 20.0-45.0 [facility] Comment on above: Performed By: #### [id number] ####[facility] HOSP ITAL LAB (BEAKER)[address] [place] [address] MCH (RBC) [Entitic mass] 28.0 pg Normal 27.0-33.0 [facility] Comment on above: Performed By: #### [id number] ####[facility] HOSP ITAL LAB (BEAKER)[address] [place] [address] MCV (RBC) [Entitic vol] 87.6 fL Normal 82.0-98.0 [facility] Comment on above: Performed By: #### [id number] ####[facility] HOSP ITAL LAB (BEAKER)[address] [place] [address] Monocytes (Bld) [#/Vol] 0.68 10*3/uL Normal 0.10-1.00 [facility] Comment on above: Performed By: #### [id number] ####[facility] HOSP ITAL LAB (BEAKER)[address] [place] [address] Monocytes/100 WBC (Bld) 7.4 % Normal 5.0-12.0 [facility] Comment on above: Performed By: #### [id number] ####[facility] HOSP ITAL LAB (BEAKER)[address] [place] [address] Neutrophils (Bld) [#/Vol] 8.09 10*3/uL High 1.60-7.60 [facility] Comment on above: Performed By: #### [id number] ####[facility] HOSP ITAL LAB (BEAKER)[address] [place] [address] Neutrophils/100 WBC (Bld) 87.6 % High 40.0-72.0 [facility] Comment on above: Performed By: #### [id number] ####[facility] HOSP ITAL LAB (BEAKER)[address] [place] [address] NRBC (PER 100 WBCS) BY AUTOMATED COUNT 0.3 % High 0 [facility] Comment on above: Performed By: #### [id number] ####[facility] HOSP ITAL LAB (BEAKER)[address] [place] [address] PLATELETS (10*3/UL) IN BLOOD AUTOMATED COUNT 179 10*3/uL Normal 150-400 [facility] Comment on above: Performed By: #### [id number] ####[facility] HOSP ITAL LAB (BEAKER)[address] [place] [address] RBC (Bld) [#/Vol] 3.54 10*6/uL Low 4.20-5.70 [facility] Comment on above: Performed By: #### [id number] ####[facility] HOSP ITAL LAB (BEAKER)[address] [place] [address] WBC (Bld) [#/Vol] 9.24 10*3/uL Normal 4.00-10.60 [facility] Comment on above: Performed By: #### [id number] ####[facility] HOSP ITAL LAB (BEAKER)[address] [place] [address] Basophils (Bld) [#/Vol] 0.03 10*3/uL Normal 0.00-0.20 [facility] Comment on above: Performed By: #### [id number] ####[facility] HOSP ITAL LAB (BEAKER)[address] [place] [address] Basophils/100 WBC (Bld) 0.3 % Normal 0.0-1.0 [facility] Comment on above: Performed By: #### [id number] ####[facility] HOSP ITAL LAB (BEAKER)[address] [place] [address] Eosinophils (Bld) [#/Vol] 0.05 10*3/uL Normal 0.00-0.50 [facility] Comment on above: Performed By: #### [id number] ####[facility] HOSP ITAL LAB (BEAKER)[address] [place] [address] Eosinophils/100 WBC (Bld) 0.5 % Normal 0.0-6.0 [facility] Comment on above: Performed By: #### [id number] ####[facility] ITAL LAB (BEAKER)[address] [place] [address] Erythrocyte distribution width (RBC) [Ratio] 17.0 % High 11.5-15.0 [facility] Comment on above: Performed By: #### [id number] ####[facility] ITAL LAB (BEAKER)[address] [place] [address] ERYTHROCYTE MEAN CORPUSCULAR HEMOGLOBIN CONCENTRATION (G/DL) BY AUTOMATED 32.9 g/dL Normal 32.0-35.0 [facility] Comment on above: Performed By: #### [id number] ####[facility] ITAL LAB (BEAKER)[address] [place] [address] Hematocrit (Bld) [Volume fraction] 35.6 % Low 39.0-55.0 [facility] Comment on above: Performed By: #### [id number] ####[facility] ITAL LAB (BEAKER)[address] [place] [address] Hemoglobin (Bld) [Mass/Vol] 11.7 g/dL Low 13.0-17.0 [facility] Comment on above: Performed By: #### [id number] ####[facility] ITAL LAB (BEAKER)[address] [place] [address] Immature granulocytes (Bld) [#/Vol] 0.07 10*3/uL Normal 0.00-0.20 [facility] Comment on above: Performed By: #### [id number] ####[facility] HOSP ITAL LAB (BEAKER)[address] [place] [address] Immature granulocytes/100 WBC (Bld) 0.6 % Normal 0.0-1.0 [facility] Comment on above: Performed By: #### [id number] ####[facility] HOSP ITAL LAB (BEAKER)[address] [place] [address] Lymphocytes (Bld) [#/Vol] 0.38 10*3/uL Low 1.20-4.00 [facility] Comment on above: Performed By: #### [id number] ####[facility] HOSP ITAL LAB (BEAKER)[address] [place] [address] Lymphocytes/100 WBC (Bld) 3.4 % Low 20.0-45.0 [facility] Comment on above: Performed By: #### [id number] ####[facility] HOSP ITAL LAB (BEAKER)[address] [place] [address] MCH (RBC) [Entitic mass] 27.7 pg Normal 27.0-33.0 [facility] Comment on above: Performed By: #### [id number] ####[facility] ITAL LAB (BEAKER)[address] [place] [address] MCV (RBC) [Entitic vol] 84.4 fL Normal 82.0-98.0 [facility] Comment on above: Performed By: #### [id number] ####[facility] HOSP ITAL LAB (BEAKER)[address] [place] [address] Monocytes (Bld) [#/Vol] 0.73 10*3/uL Normal 0.10-1.00 [facility] Comment on above: Performed By: #### [id number] ####[facility] HOSP ITAL LAB (BEAKER)[address] [place] [address] Monocytes/100 WBC (Bld) 6.6 % Normal 5.0-12.0 [facility] Comment on above: Performed By: #### [id number] ####[facility] HOSP ITAL LAB (BEAKER)[address] [place] [address] Neutrophils (Bld) [#/Vol] 9.82 10*3/uL High 1.60-7.60 [facility] Comment on above: Performed By: #### [id number] ####[facility] HOSP ITAL LAB (BEAKER)[address] [place] [address] Neutrophils/100 WBC (Bld) 88.6 % High 40.0-72.0 [facility] Comment on above: Performed By: #### [id number] ####[facility] HOSP ITAL LAB (BEAKER)[address] [place] [address] NRBC (PER 100 WBCS) BY AUTOMATED COUNT 0.0 % Normal 0 [facility] Comment on above: Performed By: #### [id number] ####[facility] HOSP ITAL LAB (BEAKER)[address] [place] [address] PLATELETS (10*3/UL) IN BLOOD AUTOMATED COUNT 232 10*3/uL Normal 150-400 [facility] Comment on above: Performed By: #### [id number] ####[facility] HOSP ITAL LAB (BEAKER)[address] [place] [address] RBC (Bld) [#/Vol] 4.22 10*6/uL Normal 4.20-5.70 [facility] Comment on above: Performed By: #### [id number] ####[facility] HOSP ITAL LAB (BEAKER)[address] [place] [address] WBC (Bld) [#/Vol] 11.08 10*3/uL High 4.00-10.60 [facility] Comment on above: Performed By: #### [id number] ####[facility] HOSP ITAL LAB (BEAKER)[address] [place] [address] COMPREHENSIVE METABOLIC PANE Jayden 08-15-2023 Albumin [Mass/Vol] 3.2 g/dL Low 3.5-5.7 [facility] Comment on above: Performed By: #### [id number] ####[facility] HOSPIT AL LAB (BEAKER)[address] [place] [address] ALP [Catalytic activity/Vol] 303 U/L High 34-104 [facility] Comment on above: Performed By: #### [id number] ####[facility] HOSPIT AL LAB (BEAKER)[address] [place] [address] ALT [Catalytic activity/Vol] 1466 U/L High 7-52 [facility] Comment on above: Performed By: #### [id number] ####[facility] AL LAB (BEAKER)[address] [place] [address] Anion gap [Moles/Vol] 21 mmol/L High 7-20 [facility] Comment on above: Performed By: #### [id number] ####[facility] AL LAB (BEAKER)[address] [place] [address] AST [Catalytic activity/Vol] 1141 U/L High 13-39 [facility] Comment on above: Performed By: #### [id number] ####[facility] AL LAB (BEAKER)[address] [place] [address] Bilirubin [Mass/Vol] 0.9 mg/dL Normal 0.3-1.0 [facility] Comment on above: Performed By: #### [id number] ####[facility] AL LAB (BEAKER)[address] [place] [address] Calcium [Mass/Vol] 8.0 mg/dL Low 8.6-10.3 [facility] Comment on above: Performed By: #### [id number] ####[facility] AL LAB (BEAKER)[address] [place] [address] Chloride [Moles/Vol] 93 mmol/L Low 98-107 [facility] Comment on above: Performed By: #### [id number] ####[facility] AL LAB (BEAKER)[address] [place] [address] CO2 [Moles/Vol] 17 mmol/L Low 21-31 [facility] Comment on above: Performed By: #### [id number] ####[facility] HOSPIT AL LAB (BEAKER)[address] [place] [address] Creatinine [Mass/Vol] 1.52 mg/dL High 0.70-1.30 [facility] Comment on above: Performed By: #### [id number] ####[facility] AL LAB ([facility])[address] [place] [address] GLOMERULAR FILTRATION RATE ML/MIN/1.73 SQ M.PREDICTED 49.6 mL/min/1.73m*2 Low >60.0 [facility] Comment on above: Result Comment: The [facility]???s estimated glomerular filtration rate (eGFR) will [...] of individuals. Performed By: #### L [id number] ####[facility] LAB ([facility])[address] [place] [address] Glucose [Mass/Vol] 327 mg/dL High 70-100 [facility] Comment on above: Performed By: #### [id number] ####[facility] [place] [address] Potassium [Moles/Vol] 4.6 mmol/L Normal 3.5-5.1 [facility] Comment on above: Performed By: #### [id number] ####[facility] [place] [address] Protein [Mass/Vol] 6.0 g/dL Normal 6.0-8.3 [facility] Comment on above: Performed By: #### [id number] ####[facility] AL LAB (BEAKER)[address] [place] [address] Sodium [Moles/Vol] 126 mmol/L Low 136-145 [facility] Comment on above: Performed By: #### [id number] ####[facility] HOSPIT AL LAB (BEAKER)[address] [place] [address] Urea nitrogen [Mass/Vol] 35 mg/dL High 7-25 [facility] Comment on above: Performed By: #### [id number] ####[facility]OSPIT AL LAB (BEAKER)[address] [place] [address] UREA NITROGEN/CREATIN INE (MASS RATIO) IN SER/PLAS 23.0 Normal [facility] Comment on above: Performed By: #### [id number] ####[facility] HOSPIT AL LAB (BEAKER)[address] [place] [address] HPon 08-15-2023 HP Normal [facility] MAGNESIUMon 08-15-2023 Magnesium [Mass/Vol] 2.3 mg/dL Normal 1.9-2.7 [facility] Comment on above: Performed By: #### [id number] ####[facility] HOSPI BRONWYN LAB (BEAKER)[address] [place] [address] Magnesium [Mass/Vol] 2.1 mg/dL Normal 1.9-2.7 [facility] Comment on above: Performed By: #### [id number] ####[facility] BRONWYN LAB (BEAKER)[address] [place] [address] PHOSPHORUSon 08-15-2023 Magnesium [Mass/Vol] 4.0 mg/dL Normal 2.5-5.0 [facility] Comment on above: Performed By: #### [id number] ####[facility] BRONWYN LAB (BEAKER)[address] [place] [address] POCT GLUCOSE METER UNSOLICIT ED RESULTSon 08-15-2023 Glucose [Mass/Vol] 215 mg/dL High 70-105 [facility] Comment on above: Order Comment: Waived Testing in the ED is performed under the ED CLIA certificate #[id number]. Result Comment: [email or web address] Performed By: #### L [id number] ####[facility]OSPITAL LAB (BEAKER)[address] [place] [address] Glucose [Mass/Vol] 298 mg/dL High 70-105 [facility] Comment on above: Order Comment: Waived Testing in the ED is performed under the ED CLIA certificate #[id number]. Result Comment: [email or web address] Performed By: #### L [id number] ####[facility] HOSPITAL LAB (BEAKER)[address] [place] [address] Glucose [Mass/Vol] 367 mg/dL High 70-105 [facility] Comment on above: Order Comment: Waived Testing in the ED is performed under the ED CLIA certificate #[id number]. Result Comment: [email or web address] Performed By: #### [id number] ####[facility] HOSPITAL LAB (BEAKER)[address] [place] [address] Glucose [Mass/Vol] 264 mg/dL High 70-105 [facility] Comment on above: Order Comment: Waived Testing in the ED is performed under the ED CLIA certificate #[id number]. Result Comment: [email or web address] Performed By: #### L [id number] ####[facility] HOSPITAL LAB (BEAKER)[address] [place] [address] 30on 08-14-2023 30 Normal [facility] 30 Normal [facility] BASIC METABOLIC PANELon 07-29 Anion gap [Moles/Vol] 16 mmol/L Normal 7-20 [facility] Comment on above: Performed By: #### [id number] ####[facility] HOSPIT AL LAB (BEAKER)[address] [place] [address] Calcium [Mass/Vol] 8.8 mg/dL Normal 8.6-10.3 [facility] Comment on above: Performed By: #### [id number] ####[facility] HOSPIT AL LAB (BEAKER)[address] [place] [address] Chloride [Moles/Vol] 98 mmol/L Normal 98-107 [facility] Comment on above: Performed By: #### [id number] ####[facility] HOSPIT AL LAB (BEAKER)[address] [place] [address] CO2 [Moles/Vol] 21 mmol/L Normal 21-31 [facility] Comment on above: Performed By: #### [id number] ####[facility] AL LAB ([facility])[address] [place] [address] Creatinine [Mass/Vol] 1.03 mg/dL Normal 0.70-1.30 [facility] Comment on above: Performed By: #### [id number] ####[facility] AL LAB ([facility])[address] [place] [address] GLOMERULAR FILTRATION RATE ML/MIN/1.73 SQ M.PREDICTED 79.1 mL/min/1.73m*2 Normal >60.0 [facility] Comment on above: Result Comment: The [facility]???s estimated glomerular filtration rate (eGFR) will [...] of individuals. Performed By: #### L [id number] ####[facility] LAB ([facility])[address] [place] [address] Glucose [Mass/Vol] 118 mg/dL High 70-100 [facility] Comment on above: Performed By: #### [id number] ####[facility] [place] [address] Potassium [Moles/Vol] 3.7 mmol/L Normal 3.5-5.1 [facility] Comment on above: Performed By: #### [id number] ####[facility] [place] [address] Sodium [Moles/Vol] 131 mmol/L Low 136-145 [facility] Comment on above: Performed By: #### [id number] ####[facility] ([facility])[address] [place] [address] Urea nitrogen [Mass/Vol] 39 mg/dL High 7-25 [facility] Comment on above: Performed By: #### [id number] ####[facility] AL LAB (BEAKER)[address] [place] [address] UREA NITROGEN/CREATIN INE (MASS RATIO) IN SER/PLAS 37.9 Normal [facility] Comment on above: Performed By: #### [id number] ####[facility] AL LAB (BEAKER)[address] [place] [address] CBC WITH AUTO DIFFERENTIALon 08-14-2023 Basophils (Bld) [#/Vol] 0.03 10*3/uL Normal 0.00-0.20 [facility] Comment on above: Performed By: #### [id number] ####[facility] HOSP ITAL LAB (BEAKER)[address] [place] [address] Basophils/100 WBC (Bld) 0.3 % Normal 0.0-1.0 [facility] Comment on above: Performed By: #### [id number] ####[facility] HOSP ITAL LAB (BEAKER)[address] [place] [address] Eosinophils (Bld) [#/Vol] 0.06 10*3/uL Normal 0.00-0.50 [facility] Comment on above: Performed By: #### [id number] ####[facility] H[facility] ITAL LAB (BEAKER)[address] [place] [address] Eosinophils/100 WBC (Bld) 0.6 % Normal 0.0-6.0 [facility] Comment on above: Performed By: #### [id number] ####[facility] H[facility] ITAL LAB (BEAKER)[address] [place] [address] Erythrocyte distribution width (RBC) [Ratio] 16.9 % High 11.5-15.0 [facility] Comment on above: Performed By: #### [id number] ####[facility] ITAL LAB (BEAKER)[address] [place] [address] ERYTHROCYTE MEAN CORPUSCULAR HEMOGLOBIN CONCENTRATION (G/DL) BY AUTOMATED 33.6 g/dL Normal 32.0-35.0 [facility] Comment on above: Performed By: #### [id number] ####[facility] ITAL LAB (BEAKER)[address] [place] [address] Hematocrit (Bld) [Volume fraction] 36.6 % Low 39.0-55.0 [facility] Comment on above: Performed By: #### [id number] ####[facility] ITAL LAB (BEAKER)[address] [place] [address] Hemoglobin (Bld) [Mass/Vol] 12.3 g/dL Low 13.0-17.0 [facility] Comment on above: Performed By: #### [id number] ####[facility] ITAL LAB (BEAKER)[address] [place] [address] Immature granulocytes (Bld) [#/Vol] 0.04 10*3/uL Normal 0.00-0.20 [facility] Comment on above: Performed By: #### [id number] ####[facility] ITAL LAB (BEAKER)[address] [place] [address] Immature granulocytes/100 WBC (Bld) 0.4 % Normal 0.0-1.0 [facility] Comment on above: Performed By: #### [id number] ####[facility] ITAL LAB (BEAKER)[address] [place] [address] Lymphocytes (Bld) [#/Vol] 0.47 10*3/uL Low 1.20-4.00 [facility] Comment on above: Performed By: #### [id number] ####[facility] ITAL LAB (BEAKER)[address] [place] [address] Lymphocytes/100 WBC (Bld) 4.7 % Low 20.0-45.0 [facility] Comment on above: Performed By: #### [id number] ####[facility] ITAL LAB (BEAKER)[address] [place] [address] MCH (RBC) [Entitic mass] 27.8 pg Normal 27.0-33.0 [facility] Comment on above: Performed By: #### [id number] ####[facility] ITAL LAB (BEAKER)[address] [place] [address] MCV (RBC) [Entitic vol] 82.8 fL Normal 82.0-98.0 [facility] Comment on above: Performed By: #### [id number] ####[facility] ITAL LAB (BEAKER)[address] [place] [address] Monocytes (Bld) [#/Vol] 0.66 10*3/uL Normal 0.10-1.00 [facility] Comment on above: Performed By: #### [id number] ####[facility] ITAL LAB (BEAKER)[address] [place] [address] Monocytes/100 WBC (Bld) 6.7 % Normal 5.0-12.0 [facility] Comment on above: Performed By: #### [id number] ####[facility] ITAL LAB (BEAKER)[address] [place] [address] Neutrophils (Bld) [#/Vol] 8.66 10*3/uL High 1.60-7.60 [facility] Comment on above: Performed By: #### [id number] ####[facility] ITAL LAB (BEAKER)[address] [place] [address] Neutrophils/100 WBC (Bld) 87.3 % High 40.0-72.0 [facility] Comment on above: Performed By: #### [id number] ####[facility] ITAL LAB (BEAKER)[address] [place] [address] NRBC (PER 100 WBCS) BY AUTOMATED COUNT 0.0 % Normal 0 [facility] Comment on above: Performed By: #### [id number] ####[facility] ITAL LAB (BEAKER)[address] [place] [address] PLATELETS (10*3/UL) IN BLOOD AUTOMATED COUNT 268 10*3/uL Normal 150-400 [facility] Comment on above: Performed By: #### [id number] ####[facility] ITAL LAB ([facility] [place] [address] RBC (Bld) [#/Vol] 4.42 10*6/uL Normal 4.20-5.70 [facility] Comment on above: Performed By: #### [id number] ####[facility] ITAL LAB ([facility])[address] [place] [address] WBC (Bld) [#/Vol] 9.92 10*3/uL Normal 4.00-10.60 [facility] Comment on above: Performed By: #### [id number] ####[facility] ITAL LAB ([facility])[address] [place] [address] CONSULTon 08-14-2023 CONSULT Normal [facility] DIGOXIN LEVELon 08-14-2023 DIGOXIN (NG/ML) IN SER/PLAS <0.3 Low 0.7-2 [facility] Comment on above: Performed By: #### [id number] ####[facility] AL LAB ([facility])[address] [place] [address] MAGNESIUMon 08-14-2023 Magnesium [Mass/Vol] 2.2 mg/dL Normal 1.9-2.7 [facility] Comment on above: Performed By: #### [id number] ####[facility]YN [facility] ([facility])[address] [place] [address] POCT GLUCOSE METER UNSOLICIT ED RESULTSon 08-14-2023 Glucose [Mass/Vol] 193 mg/dL High 70-105 [facility] Comment on above: Order Comment: Waived Testing in the ED is performed under the ED CLIA certificate #[id number]. Result Comment: [email or web address] Performed By: #### L [id number] ####[facility] ([facility])[address] [place] [address] Glucose [Mass/Vol] 202 mg/dL High 70-105 [facility] Comment on above: Order Comment: Waived Testing in the ED is performed under the ED CLIA certificate #[id number]. Result Comment: [email or web address] Performed By: #### L [id number] ####[facility] ([facility])[address] [place] [address] Glucose [Mass/Vol] 202 mg/dL High 70-105 [facility] Comment on above: Order Comment: Waived Testing in the ED is performed under the ED CLIA certificate #[id number]. Result Comment: [email or web address] Performed By: #### L [id number] ####[facility] ([facility])[address] [place] [address] Glucose [Mass/Vol] 120 mg/dL High 70-105 [facility] Comment on above: Order Comment: Waived Testing in the ED is performed under the ED CLIA certificate #[id number]. Result Comment: [email or web address] Performed By: #### L [id number] ####[facility] ([facility])[address] [place] [address] 30on 08-13-2023 30 Normal [facility] ANESon 08-13-2023 ANES Normal [facility] BASIC METABOLIC PANELon - Anion gap [Moles/Vol] 18 mmol/L Normal 7-20 [facility] Comment on above: Performed By: #### [id number] ####[facility] ([facility])[address] [place] [address] Calcium [Mass/Vol] 8.7 mg/dL Normal 8.6-10.3 [facility] Comment on above: Performed By: #### [id number] ####[facility] (BEAKER)[address] [place] [address] Chloride [Moles/Vol] 97 mmol/L Low 98-107 [facility] Comment on above: Performed By: #### [id number] ####[facility] LAB (BEAKER)[address] [place] [address] CO2 [Moles/Vol] 19 mmol/L Low 21-31 [facility] Comment on above: Performed By: #### [id number] ####[facility] LAB (BEAKER)[address] [place] [address] Creatinine [Mass/Vol] 1.42 mg/dL High 0.70-1.30 [facility] Comment on above: Performed By: #### [id number] ####[facility] [place] [address] GLOMERULAR FILTRATION RATE ML/MIN/1.73 SQ M.PREDICTED 53.8 mL/min/1.73m*2 Low >60.0 [facility] Comment on above: Result Comment: The [facility]???s estimated glomerular filtration rate (eGFR) will [...] of individuals. Performed By: #### L [id number] ####[facility] ([facility])[address] [place] [address] Glucose [Mass/Vol] 239 mg/dL High 70-100 [facility] Comment on above: Performed By: #### [id number] ####[facility] [place] [place] [address] Potassium [Moles/Vol] 4.4 mmol/L Normal 3.5-5.1 [facility] Comment on above: Performed By: #### [id number] ####[facility] ([facility] [place] [address] Sodium [Moles/Vol] 130 mmol/L Low 136-145 [facility] Comment on above: Performed By: #### [id number] ####[facility] ([facility] [place] [address] Urea nitrogen [Mass/Vol] 47 mg/dL High 7-25 [facility] Comment on above: Performed By: #### [id number] ####[facility] (BEAKER)[address] [place] [address] UREA NITROGEN/CREATIN INE (MASS RATIO) IN SER/PLAS 33.1 Normal [facility] Comment on above: Performed By: #### [id number] ####[facility] ([facility])[address] [place] [address] C-REACTIVE PROTEINon 024 C REACTIVE PROTEIN (MG/L) IN SER/PLAS 154.0 mg/L High 0.0-7.0 [facility] Comment on above: Performed By: #### [id number] ####[facility] LAB (BEAKER)[address] [address] CBCon 08-13-2023 Erythrocyte distribution width (RBC) [Ratio] 16.9 % High 11.5-15.0 [facility] Comment on above: Performed By: #### [id number] ####[facility] (BEAKER)[address] [address] ERYTHROCYTE MEAN CORPUSCULAR HEMOGLOBIN CONCENTRATION (G/DL) BY AUTOMATED 33.0 g/dL Normal 32.0-35.0 [facility] Comment on above: Performed By: #### [id number] ####[facility] (BEAKER)[address] [place] [address] Hematocrit (Bld) [Volume fraction] 37.3 % Low 39.0-55.0 [facility] Comment on above: Performed By: #### [id number] ####[facility] (BEAKER)[address] [address] Hemoglobin (Bld) [Mass/Vol] 12.3 g/dL Low 13.0-17.0 [facility] Comment on above: Performed By: #### [id number] ####[facility] (BEAKER)[address] [place] [address] MCH (RBC) [Entitic mass] 27.6 pg Normal 27.0-33.0 [facility] Comment on above: Performed By: #### [id number] ####[facility] (BEAKER)[address] [place] [address] MCV (RBC) [Entitic vol] 83.8 fL Normal 82.0-98.0 [facility] Comment on above: Performed By: #### [id number] ####[facility] (BEAKER)[address] [place] [address] PLATELETS (10*3/UL) IN BLOOD AUTOMATED COUNT 270 10*3/uL Normal 150-400 [facility] Comment on above: Performed By: #### [id number] ####[facility] (BEAKER)[address] [place] [address] RBC (Bld) [#/Vol] 4.45 10*6/uL Normal 4.20-5.70 [facility] Comment on above: Performed By: #### [id number] ####[facility] (BEAKER)[address] [place] [address] WBC (Bld) [#/Vol] 11.46 10*3/uL High 4.00-10.60 [facility] Comment on above: Performed By: #### [id number] ####[facility] (BEAKER)[address] [place] [address] HPon 08-13-2023 HP Normal [facility] LACTIC ACID WITH 4 HOUR REFL EXon 08-13-2023 LACTATE (MMOL/L) IN SER/PLAS 1.2 mmol/L Normal 0.5-2.2 [facility] Comment on above: Result Comment: M-CHEMISTRY SPECIMEN MOD ERATELY HEMOLYZED RESULTS MAY NOT BE ACCURATE Performed By: #### L [id number] ####[facility] (BEAKER)[address] [place] [address] LACTATE (MMOL/L) IN SER/PLAS 3.2 mmol/L Critically high 0.5-2.2 [facility] Comment on above: Performed By: #### [id number] ####[facility] LAB (BEAKER)[address] [place] [address] NURSNOTEon 02-16-2024 NURSNOTE Report given to Andre burgess RN, RN verbalized understanding. Normal [facility] POCT GLUCOSE METER UNSOLICIT ED RESULTSon 08-13-2023 Glucose [Mass/Vol] 205 mg/dL High 70-105 [facility] Comment on above: Order Comment: Waived Testing in the ED is performed under the ED CLIA certificate #[id number]. Result Comment: [email or web address] Performed By: #### L [id number] ####[facility] (BEAKER)[address] [place] [address] Glucose [Mass/Vol] 203 mg/dL High 70-105 [facility] Comment on above: Order Comment: Waived Testing in the ED is performed under the ED CLIA certificate #[id number]. Result Comment: [email or web address] Performed By: #### L [id number] ####[facility] (BEAKER)[address] [place] [address] Glucose [Mass/Vol] 240 mg/dL High 70-105 [facility] Comment on above: Order Comment: Waived Testing in the ED is performed under the ED CLIA certificate #[id number]. Result Comment: [email or web address] Performed By: #### L [id number] ####[facility] (BEAKER)[address] [place] [address] Glucose [Mass/Vol] 247 mg/dL High 70-105 [facility] Comment on above: Order Comment: Waived Testing in the ED is performed under the ED CLIA certificate #[id number]. Result Comment: [email or web address] Performed By: #### L [id number] ####[facility] (BEAKER)[address] [place] [address] ANTI-XA (HEPARIN LEVEL)on HEPARIN UNFRACTIONATED (U/ML) IN PPP BY CHROMOGENIC METHOD 0.24 IU/mL Low 0.3-0.7 [facility] Comment on above: Order Comment: Check anti-Xa level every 6 hours while on heparin infusion, or per protocol. Result Comment: [place] roxaban and Apixaban will interfere with the anti Xa assay used to monitor UFH and LMWH. Performed By: #### L [id number] ####[facility] (BEAKER)[address] [place] [address] HEPARIN UNFRACTIONATED (U/ML) IN PPP BY CHROMOGENIC METHOD 0.28 IU/mL Low 0.3-0.7 [facility] Comment on above: Order Comment: Check anti-Xa level every 6 hours while on heparin infusion, or per protocol. Result Comment: [place] roxaban and Apixaban will interfere with the anti Xa assay used to monitor UFH and LMWH. Performed By: #### L [id number] ####[facility] (BEAKER)[address] [place] [address] B-TYPE NATRIURETIC PEPTIDEon 08-12-2023 Natriuretic peptide B (Bld) [Mass/Vol] 790 pg/mL High 0-100 [facility] Comment on above: Performed By: #### [id number] ####[facility] (BEAKER)[address] [place] [address] BASIC METABOLIC PANELon 07-29 Anion gap [Moles/Vol] 17 mmol/L Normal 7-20 [facility] Comment on above: Performed By: #### [id number] ####[facility] AL LAB (BEAKER)[address] [place] [address] Calcium [Mass/Vol] 8.8 mg/dL Normal 8.6-10.3 [facility] Comment on above: Performed By: #### [id number] ####[facility] LAB (BEAKER)[address] [place] [address] Chloride [Moles/Vol] 99 mmol/L Normal 98-107 [facility] Comment on above: Performed By: #### [id number] ####[facility] LAB (BEAKER)[address] [place] [address] CO2 [Moles/Vol] 18 mmol/L Low 21-31 [facility] Comment on above: Performed By: #### [id number] ####[facility] LAB (BEAKER)[address] [place] [address] Creatinine [Mass/Vol] 1.00 mg/dL Normal 0.70-1.30 [facility] Comment on above: Performed By: #### [id number] ####[facility] LAB (BEAKER)[address] [place] [address] GLOMERULAR FILTRATION RATE ML/MIN/1.73 SQ M.PREDICTED 82.0 mL/min/1.73m*2 Normal >60.0 [facility] Comment on above: Result Comment: The [facility]???s estimated glomerular filtration rate (eGFR) will [...] of individuals. Performed By: #### L [id number] ####[facility] (BEAKER)[address] [place] [address] Glucose [Mass/Vol] 227 mg/dL High 70-100 [facility] Comment on above: Performed By: #### [id number] ####[facility] LAB (BEAKER)[address] [place] [address] Potassium [Moles/Vol] 3.9 mmol/L Normal 3.5-5.1 [facility] Comment on above: Performed By: #### [id number] ####[facility] LAB (BEAKER)[address] [place] [address] Sodium [Moles/Vol] 130 mmol/L Low 136-145 [facility] Comment on above: Performed By: #### [id number] ####[facility] ([facility])[address] [place] [address] Urea nitrogen [Mass/Vol] 31 mg/dL High 7-25 [facility] Comment on above: Performed By: #### [id number] ####[facility] LAB (BEAKER)[address] [place] [address] UREA NITROGEN/CREATIN INE (MASS RATIO) IN SER/PLAS 31.0 Normal [facility] Comment on above: Performed By: #### [id number] ####[facility] LAB (BEAKER)[address] [place] [address] CBCon 08-12-2023 Erythrocyte distribution width (RBC) [Ratio] 16.5 % High 11.5-15.0 [facility] Comment on above: Performed By: #### [id number] ####[facility] (BEAKER)[address] [place] [address] ERYTHROCYTE MEAN CORPUSCULAR HEMOGLOBIN CONCENTRATION (G/DL) BY AUTOMATED 32.8 g/dL Normal 32.0-35.0 [facility] Comment on above: Performed By: #### [id number] ####[facility] (BEAKER)[address] [place] [address] Hematocrit (Bld) [Volume fraction] 36.6 % Low 39.0-55.0 [facility] Comment on above: Performed By: #### [id number] ####[facility] (BEAKER)[address] [place] [address] Hemoglobin (Bld) [Mass/Vol] 12.0 g/dL Low 13.0-17.0 [facility] Comment on above: Performed By: #### [id number] ####[facility] (BEAKER)[address] [place] [address] MCH (RBC) [Entitic mass] 27.8 pg Normal 27.0-33.0 [facility] Comment on above: Performed By: #### [id number] ####[facility] (BEAKER)[address] [place] [address] MCV (RBC) [Entitic vol] 84.7 fL Normal 82.0-98.0 [facility] Comment on above: Performed By: #### [id number] ####[facility] LAB (BEAKER)[address] [place] [address] PLATELETS (10*3/UL) IN BLOOD AUTOMATED COUNT 319 10*3/uL Normal 150-400 [facility] Comment on above: Performed By: #### [id number] ####[facility] ([facility]ER)[address] [place] [address] RBC (Bld) [#/Vol] 4.32 10*6/uL Normal 4.20-5.70 [facility] Comment on above: Performed By: #### [id number] ####[facility] ([facility])[address] [place] [address] WBC (Bld) [#/Vol] 9.98 10*3/uL Normal 4.00-10.60 [facility] Comment on above: Performed By: #### [id number] ####[facility] ([facility])[address] [place] [address] CONSULTon 08-12-2023 CONSULT Normal [facility] HPon 08-12-2023 HP Normal [facility] MAGNESIUMon 08-12-2023 Magnesium [Mass/Vol] 2.2 mg/dL Normal 1.9-2.7 [facility] Comment on above: Performed By: #### [id number] ####[facility] ([facility])[address] [place] [address] POCT GLUCOSE METER UNSOLICIT ED RESULTSon 08-12-2023 Glucose [Mass/Vol] 234 mg/dL High 70-105 [facility] Comment on above: Order Comment: Waived Testing in the ED is performed under the ED CLIA certificate #[id number]. Result Comment: [email or web address] Performed By: #### L [id number] ####[facility] ([facility])[address] [place] [address] Glucose [Mass/Vol] 204 mg/dL High 70-105 [facility] Comment on above: Order Comment: Waived Testing in the ED is performed under the ED CLIA certificate #[id number]. Result Comment: [email or web address] Performed By: #### L [id number] ####[facility] (BEAKER)[address] [place] [address] Glucose [Mass/Vol] 263 mg/dL High 70-105 [facility] Comment on above: Order Comment: Waived Testing in the ED is performed under the ED CLIA certificate #[id number]. Result Comment: [email or web address] Performed By: #### L [id number] ####[facility] ([facility])[address] [place] [address] Glucose [Mass/Vol] 245 mg/dL High 70-105 [facility] Comment on above: Order Comment: Waived Testing in the ED is performed under the ED CLIA certificate #[id number]. Result Comment: [email or web address] Performed By: #### L [id number] ####[facility] ([facility])[address] [place] [address] Glucose [Mass/Vol] 213 mg/dL High 70-105 [facility] Comment on above: Order Comment: Waived Testing in the ED is performed under the ED CLIA certificate #[id number]. Result Comment: [email or web address] Performed By: #### L [id number] ####[facility] ([facility])[address] [place] [address] Glucose [Mass/Vol] 198 mg/dL High 70-105 [facility] Comment on above: Order Comment: Waived Testing in the ED is performed under the ED CLIA certificate #[id number]. Result Comment: [email or web address] Performed By: #### L [id number] ####[facility] (BEAKER)[address] [place] [address] ANTI-XA (HEPARIN LEVEL)on HEPARIN UNFRACTIONATED (U/ML) IN PPP BY CHROMOGENIC METHOD 0.59 IU/mL Normal 0.3-0.7 [facility] Comment on above: Order Comment: Check anti-Xa level every 6 hours while on heparin infusion, or per protocol. Result Comment: [place] roxaban and Apixaban will interfere with the anti Xa assay used to monitor UFH and LMWH. Performed By: #### L [id number] ####[facility] ([facility])[address] [place] [address] APTTon 08-11-2023 ACTIVATED PARTIAL THROMBOPLASTIN TIME IN PPP BY COAGULATION ASSAY >200.0 Critically high 25.0-35.0 [facility] Comment on above: Order Comment: Baseline aPTT before init iating heparin infusion. Result Comment: Clin ical significance of the APTT is questionable in the presence of heparin. Performed By: #### L [id number] ####[facility] ([facility])[address] [place] [address] ACTIVATED PARTIAL THROMBOPLASTIN TIME IN PPP BY COAGULATION ASSAY 35.0 Seconds Normal 25.0-35.0 [facility] Comment on above: Result Comment: Clinical significance of the APTT is questionable in the presence of heparin. Performed By: #### L [id number] ####[facility] ([facility])[address] [place] [address] B-TYPE NATRIURETIC PEPTIDEon 08-11-2023 Natriuretic peptide B (Bld) [Mass/Vol] 1000 pg/mL High 0-100 [facility] Comment on above: Performed By: #### [id number] ####[facility] ([facility])[address] [place] [address] BASIC METABOLIC PANELon 07-29 Anion gap [Moles/Vol] 19 mmol/L Normal 7-20 [facility] Comment on above: Performed By: #### [id number] ####[facility] ([facility])[address] [place] [address] Calcium [Mass/Vol] 8.9 mg/dL Normal 8.6-10.3 [facility] Comment on above: Performed By: #### [id number] ####[facility] ([facility])[address] [place] [address] Chloride [Moles/Vol] 99 mmol/L Normal 98-107 [facility] Comment on above: Performed By: #### [id number] ####[facility] ([facility])[address] [place] [address] CO2 [Moles/Vol] 17 mmol/L Low 21-31 [facility] Comment on above: Performed By: #### [id number] ####[facility] AL LAB (BEAKER)[address] [place] [address] Creatinine [Mass/Vol] 0.86 mg/dL Normal 0.70-1.30 [facility] Comment on above: Performed By: #### [id number] ####[facility] AL LAB (BEAKER)[address] [place] [address] GLOMERULAR FILTRATION RATE ML/MIN/1.73 SQ M.PREDICTED 94.3 mL/min/1.73m*2 Normal >60.0 [facility] Comment on above: Result Comment: The [facility]???s estimated glomerular filtration rate (eGFR) will [...] of individuals. Performed By: #### L [id number] ####[facility] (BEAKER)[address] [facility] [place] [address] Glucose [Mass/Vol] 132 mg/dL High 70-100 [facility] Comment on above: Performed By: #### [id number] ####[facility] ([facility])[address] [place] [address] Potassium [Moles/Vol] 4.1 mmol/L Normal 3.5-5.1 [facility] Comment on above: Performed By: #### [id number] ####[facility] ([facility])[address] [place] [address] Sodium [Moles/Vol] 131 mmol/L Low 136-145 [facility] Comment on above: Performed By: #### [id number] ####[facility] LAB (BEAKER)[address] [place] [address] Urea nitrogen [Mass/Vol] 25 mg/dL Normal 7-25 [facility] Comment on above: Performed By: #### [id number] ####[facility] AL LAB (BEAKER)[address] [place] [address] UREA NITROGEN/CREATIN INE (MASS RATIO) IN SER/PLAS 29.1 Normal [facility] Comment on above: Performed By: #### [id number] ####[facility] AL LAB (BEAKER)[address] [place] [address] CBCon 08-11-2023 Erythrocyte distribution width (RBC) [Ratio] 16.4 % High 11.5-15.0 [facility] Comment on above: Performed By: #### [id number] ####[facility] (BEAKER)[address] [place] [address] ERYTHROCYTE MEAN CORPUSCULAR HEMOGLOBIN CONCENTRATION (G/DL) BY AUTOMATED 32.9 g/dL Normal 32.0-35.0 [facility] Comment on above: Performed By: #### [id number] ####[facility] (BEAKER)[address] [place] [address] Hematocrit (Bld) [Volume fraction] 37.1 % Low 39.0-55.0 [facility] Comment on above: Performed By: #### [id number] ####[facility] (BEAKER)[address] [place] [address] Hemoglobin (Bld) [Mass/Vol] 12.2 g/dL Low 13.0-17.0 [facility] Comment on above: Performed By: #### [id number] ####[facility] (BEAKER)[address] [place] [address] MCH (RBC) [Entitic mass] 27.1 pg Normal 27.0-33.0 [facility] Comment on above: Performed By: #### [id number] ####[facility] (BEAKER)[address] [place] [address] MCV (RBC) [Entitic vol] 82.3 fL Normal 82.0-98.0 [facility] Comment on above: Performed By: #### [id number] ####[facility] (BEAKER)[address] [place] [address] PLATELETS (10*3/UL) IN BLOOD AUTOMATED COUNT 362 10*3/uL Normal 150-400 [facility] Comment on above: Performed By: #### [id number] ####[facility] (BEAKER)[address] [place] [address] RBC (Bld) [#/Vol] 4.51 10*6/uL Normal 4.20-5.70 [facility] Comment on above: Performed By: #### [id number] ####[facility] (BEAKER)[address] [place] [address] WBC (Bld) [#/Vol] 11.35 10*3/uL High 4.00-10.60 [facility] Comment on above: Performed By: #### [id number] ####[facility] (BEAKER)[address] [place] [address] CBC WITH AUTO DIFFERENTIALon 08-11-2023 Basophils (Bld) [#/Vol] 0.04 10*3/uL Normal 0.00-0.20 [facility] Comment on above: Performed By: #### [id number] ####[facility] ITAL LAB (BEAKER)[address] [place] [address] Basophils/100 WBC (Bld) 0.4 % Normal 0.0-1.0 [facility] Comment on above: Performed By: #### [id number] ####[facility] ITAL LAB (BEAKER)[address] [place] [address] Eosinophils (Bld) [#/Vol] 0.02 10*3/uL Normal 0.00-0.50 [facility] Comment on above: Performed By: #### [id number] ####[facility] ITAL LAB (BEAKER)[address] [place] [address] Eosinophils/100 WBC (Bld) 0.2 % Normal 0.0-6.0 [facility] Comment on above: Performed By: #### [id number] ####[facility] ITAL LAB (BEAKER)[address] [place] [address] Erythrocyte distribution width (RBC) [Ratio] 16.4 % High 11.5-15.0 [facility] Comment on above: Performed By: #### [id number] ####[facility] ITAL LAB (BEAKER)[address] [place] [address] ERYTHROCYTE MEAN CORPUSCULAR HEMOGLOBIN CONCENTRATION (G/DL) BY AUTOMATED 33.4 g/dL Normal 32.0-35.0 [facility] Comment on above: Performed By: #### [id number] ####[facility] ITAL LAB (BEAKER)[address] [place] [address] Hematocrit (Bld) [Volume fraction] 38.0 % Low 39.0-55.0 [facility] Comment on above: Performed By: #### [id number] ####[facility] ITAL LAB (BEAKER)[address] [place] [address] Hemoglobin (Bld) [Mass/Vol] 12.7 g/dL Low 13.0-17.0 [facility] Comment on above: Performed By: #### [id number] ####[facility] ITAL LAB (BEAKER)[address] [place] [address] Immature granulocytes (Bld) [#/Vol] 0.03 10*3/uL Normal 0.00-0.20 [facility] Comment on above: Performed By: #### [id number] ####[facility] ITAL LAB (BEAKER)[address] [place] [address] Immature granulocytes/100 WBC (Bld) 0.3 % Normal 0.0-1.0 [facility] Comment on above: Performed By: #### [id number] ####[facility] ITAL LAB (BEAKER)[address] [place] [address] Lymphocytes (Bld) [#/Vol] 0.51 10*3/uL Low 1.20-4.00 [facility] Comment on above: Performed By: #### [id number] ####[facility] HOS[facility] ITAL LAB (BEAKER)[address] [place] [address] Lymphocytes/100 WBC (Bld) 4.9 % Low 20.0-45.0 [facility] Comment on above: Performed By: #### [id number] ####[facility] HOS[facility] ITAL LAB (BEAKER)[address] [place] [address] MCH (RBC) [Entitic mass] 28.1 pg Normal 27.0-33.0 [facility] Comment on above: Performed By: #### [id number] ####[facility] HOSP ITAL LAB (BEAKER)[address] [place] [address] MCV (RBC) [Entitic vol] 84.1 fL Normal 82.0-98.0 [facility] Comment on above: Performed By: #### [id number] ####[facility] HOSP ITAL LAB (BEAKER)[address] [place] [address] Monocytes (Bld) [#/Vol] 0.82 10*3/uL Normal 0.10-1.00 [facility] Comment on above: Performed By: #### [id number] ####[facility] HOS[facility] ITAL LAB (BEAKER)[address] [place] [address] Monocytes/100 WBC (Bld) 7.9 % Normal 5.0-12.0 [facility] Comment on above: Performed By: #### [id number] ####[facility] HOSP ITAL LAB (BEAKER)[address] [place] [address] Neutrophils (Bld) [#/Vol] 8.99 10*3/uL High 1.60-7.60 [facility] Comment on above: Performed By: #### [id number] ####[facility] HOSP ITAL LAB (BEAKER)[address] [place] [address] Neutrophils/100 WBC (Bld) 86.3 % High 40.0-72.0 [facility] Comment on above: Performed By: #### [id number] ####[facility] HOSP ITAL LAB (BEAKER)[address] [place] [address] NRBC (PER 100 WBCS) BY AUTOMATED COUNT 0.0 % Normal 0 [facility] Comment on above: Performed By: #### [id number] ####[facility] HOSP ITAL LAB (BEAKER)[address] [place] [address] PLATELETS (10*3/UL) IN BLOOD AUTOMATED COUNT 350 10*3/uL Normal 150-400 [facility] Comment on above: Performed By: #### [id number] ####[facility] HOSP ITAL LAB (BEAKER)[address] [place] [address] RBC (Bld) [#/Vol] 4.52 10*6/uL Normal 4.20-5.70 [facility] Comment on above: Performed By: #### [id number] ####[facility] HOSP ITAL LAB (BEAKER)[address] [place] [address] WBC (Bld) [#/Vol] 10.41 10*3/uL Normal 4.00-10.60 [facility] Comment on above: Performed By: #### [id number] ####[facility] HOSP ITAL LAB (BEAKER)[address] [place] [address] COMPREHENSIVE METABOLIC PANE Jayden 08-11-2023 Albumin [Mass/Vol] 3.8 g/dL Normal 3.5-5.7 [facility] Comment on above: Performed By: #### [id number] ####[facility] HOSPIT AL LAB (BEAKER)[address] [place] [address] ALP [Catalytic activity/Vol] 199 U/L High 34-104 [facility] Comment on above: Performed By: #### [id number] ####[facility] AL LAB (BEAKER)[address] [place] [address] ALT [Catalytic activity/Vol] 82 U/L High 7-52 [facility] Comment on above: Performed By: #### [id number] ####[facility]OSPIT AL LAB (BEAKER)[address] [place] [address] Anion gap [Moles/Vol] 17 mmol/L Normal 7-20 [facility] Comment on above: Performed By: #### [id number] ####[facility] AL LAB (BEAKER)[address] [place] [address] AST [Catalytic activity/Vol] 74 U/L High 13-39 [facility] Comment on above: Performed By: #### [id number] ####[facility] AL LAB (BEAKER)[address] [place] [address] Bilirubin [Mass/Vol] 0.6 mg/dL Normal 0.3-1.0 [facility] Comment on above: Performed By: #### [id number] ####[facility] AL LAB (BEAKER)[address] [place] [address] Calcium [Mass/Vol] 8.9 mg/dL Normal 8.6-10.3 [facility] Comment on above: Performed By: #### [id number] ####[facility] AL LAB (BEAKER)[address] [place] [address] Chloride [Moles/Vol] 100 mmol/L Normal 98-107 [facility] Comment on above: Performed By: #### [id number] ####[facility] AL LAB (BEAKER)[address] [place] [address] CO2 [Moles/Vol] 18 mmol/L Low 21-31 [facility] Comment on above: Performed By: #### [id number] ####[facility] AL LAB (BEAKER)[address] [place] [address] Creatinine [Mass/Vol] 0.86 mg/dL Normal 0.70-1.30 [facility] Comment on above: Performed By: #### [id number] ####[facility] AL LAB (BEAKER)[address] [place] [address] GLOMERULAR FILTRATION RATE ML/MIN/1.73 SQ M.PREDICTED 94.3 mL/min/1.73m*2 Normal >60.0 [facility] Comment on above: Result Comment: [facility]???s estimated glomerular filtration rate (eGFR) will [...] of individuals. Performed By: #### L [id number] ####[facility] HOSPITAL LAB (BEAKER)[address] [place] [address] Glucose [Mass/Vol] 171 mg/dL High 70-100 [facility] Comment on above: Performed By: #### [id number] ####[facility]OS[facility] AL LAB (BEAKER)[address] [place] [address] Potassium [Moles/Vol] 4.3 mmol/L Normal 3.5-5.1 [facility] Comment on above: Performed By: #### [id number] ####[facility]PIT AL LAB (BEAKER)[address] [place] [address] Protein [Mass/Vol] 7.2 g/dL Normal 6.0-8.3 [facility] Comment on above: Performed By: #### [id number] ####[facility] AL LAB (BEAKER)[address] [place] [address] Sodium [Moles/Vol] 131 mmol/L Low 136-145 [facility] Comment on above: Performed By: #### [id number] ####[facility] AL LAB (BEAKER)[address] [place] [address] Urea nitrogen [Mass/Vol] 24 mg/dL Normal 7-25 [facility] Comment on above: Performed By: #### [id number] ####[facility] AL LAB (BEAKER)[address] [place] [address] UREA NITROGEN/CREATIN INE (MASS RATIO) IN SER/PLAS 27.9 Normal [facility] Comment on above: Performed By: #### [id number] ####[facility]OSP[facility] AL LAB ([employer])[address] [place] [address] EDPROVon 08-11-2023 EDPROV Normal [facility] GAMMA GTon 08-11-2023 Amylase [Catalytic activity/Vol] 76 U/L High 9-64 [facility] Comment on above: Performed By: #### [id number] ####[facility] HOSPIT AL LAB ([employer])[address] [place] [address] HEPATITIS PANEL, ACUTEon HEPATITIS A VIRUS IGM AB PRESENCE IN SER/PLAS Non-Reactive Normal Nonreactive [facility] Comment on above: Performed By: #### [id number] ####[facility] BRONWYN LAB ([employer])[address] [place] [address] HEPATITIS B VIRUS CORE AB (PRESENCE) IN SER/PLAS BY IMM Non-Reactive Normal Nonreactive [facility] Comment on above: Performed By: #### [id number] ####[facility] BR[facility]YN LAB ([employer])[address] [place] [address] HEPATITIS B VIRUS SURFACE AG PRESENCE IN SERUM Non-Reactive Normal Nonreactive [facility] Comment on above: Performed By: #### [id number] ####[facility] BRON[facility]YN LAB ([employer])[address] [place] [address] HEPATITIS C VIRUS AB PRESENCE IN SERUM Non-Reactive Normal Nonreactive [facility] Comment on above: Performed By: #### [id number] ####[facility] BRON[facility]YN LAB ([employer])[address] [place] [address] HPon 08-11-2023 HP Normal [facility] PROTIME-INRon 08-11-2023 INR IN PPP BY COAGULATION ASSAY 1.32 High 0.90-1.10 [facility] Comment on above: Result Comment: [facility] RECOMMENDED INR FO R WARFARIN THERAPY CONDITION INRPROPHYLAXIS OF VENOUS THROMBOSIS 2-3(HIGH-RISK SURGERY)TREATMENT OF VENOUS THROMBOSIS 2-3TREATMENT OF PULMONARY EMBOLISM 2-3PREVENTION OF SYSTEMIC EMBOLISM: 2-3 ACUTE MYOCARDIAL INFARCTION TISSUE HEART VALVES VALVULAR HEART DISEASE ATRIAL FIBRILLATION RECURRENT SYSTEMIC EMBOLISMMECHANICAL HEART VALVE 2.5-3.5 FROM: ORAL ANTICOAGULANTS. MECHANISM OF ACTION, CLINICAL EFFECTIVENESS, AND OPTIMAL THERAPEUTIC RANGE. CHEST 1995;108:231S-246S. Performed By: #### L [id number] ####[facility] ([facility])[address] [place] [address] PROTHROMBIN TIME (PT) IN PPP BY COAGULATION ASSAY 16.5 Seconds High 12.3-14.8 [facility] Comment on above: Performed By: #### [id number] ####[facility] BRONWYN LAB ([employer])[address] [place] [address] TROPONIN Ion 08-11-2023 Troponin I.cardiac [Mass/Vol] 0.16 ng/mL Critically high 0.00-0.04 [facility] Comment on above: Result Comment: M-TROPONIN INITIAL CRITI ANNA HIGH; RESPUN AND RETESTED Performed By: #### L [id number] ####[facility] ([facility])[address] [place] [address] ALL CBC WITH AUTO DIFFon BASOPHILS ABSOLUTE AUTO 0.1 [facility] Healthcare Basophils/100 WBC (Bld) 0.7 % 0.2 - 2.0 % [facility] Eosinophils/100 WBC (Bld) 1.1 % 0.9 - 7.0 % [facility] Erythrocyte distribution width (RBC) [Ratio] 16.2 % High 11.0 - 15.0 % [facility] Hematocrit (Bld) [Volume fraction] 38.8 % Low 42.0 - 54.0 % [facility] Hemoglobin (Bld) [Mass/Vol] 12.3 g/dL Low 14.0 - 18.0 g/dL [facility] IMMATURE GRANULOCYTES ABS AUTO 0.03 [facility] Immature granulocytes/100 WBC (Bld) 0.3 % 0.0 - 0.5 % [facility] Interpretation and review of laboratory results Abnormal [facility] LYMPHOCYTES ABSOLUTE AUTO 0.7 Low [facility] Lymphocytes/100 WBC (Bld) 6.9 % Low 20.5 - 60.0 % [facility] MCH (RBC) [Entitic mass] 27.3 pg 25.9 - 34.0 pg [facility] MCHC (RBC) [Mass/Vol] 31.7 g/dL 29.9 - 35.2 g/dL [facility] MCV (RBC) [Entitic vol] 86.2 fL 80.0 - 94.0 fL [facility] MONOCYTES ABSOLUTE AUTO 0.7 [facility] Monocytes/100 WBC (Bld) 6.9 % 1.7 - 12.0 % [facility] NEUTROPHILS ABSOLUTE AUTO 7.9 High [facility] Neutrophils/100 WBC (Bld) 84.1 % High 43.0 - 75.0 % [facility] Platelet mean volume (Bld) [Entitic vol] 10.0 fL 9.5 - 13.5 fL [facility] TBH EO # 0.1 [facility] TB PLT 334 [facility] RBC 4.50 Low [facility] WBC 9.4 [facility] Rad - Other Radiology Report on 08-09-2023 Rad - Other Radiology Report [id number] [facility] 36on 07-30-2023 36 Spoke with patient a nd he is doing well on half tablet of lasix. Dr. Agarwal is ok with this and patient was informed. Told him I'd send his info to Dr. Bautista since he'd like to get established with him. [facility] 36on 07-27-[address] [facility] XR SHOULDER LT MIN 2 VWSon 0 [...] Robert Hook MD on 07/21/2023 12:16 PM [facility] XR SHOULDER RT MIN 2 VWSon 0 07-21-2023 XR SHOULDER RT MIN 2 VWS XR SHOULDER RT MIN 2 VWS CLINICAL INFORMATION: Right shoulder pain, unspecified chronicity TECHNIQUE: XR SHOULDER RT MIN 2 VWS 3 views right shoulder were obtained. There is no acute osseous, articular, or soft tissue abnormality. IMPRESSION: No acute findings. Finalized by Robert Hook MD on 07/21/2023 12:15 PM [facility] 36on 07-16-[address] [facility] Telephoneon 07-16-[address] [facility] 36on 07-09-2023 36 Patient called to bebe hardwick aware of shoulder muscle pain and myalgias since starting Crestor. Advised him to stop until his coming apt with Dr. Agarwal on 07/15/2023. Told him he could further discuss at that time. He verbalized understanding. [facility] 36on 06-09-2023 36 Per Hospitalist team , pt was taking isosorbide 30 mg during the hospital admission, so they discharged him on that dosage. They stated he has multiple med adjustments and Cardiology can increase the isosorbide if they wish to. Pt notified. [facility] 36 [facility] Documentationon 06-09-[address] [facility] Telephoneon 06-09-2023 Telephone [id number] Judson Phillips 1955 M Date Provider Department Center 06/09/[id number] TAVAREZ [facility] V[facility] HeartVAS No family history on file [facility] 30on 06-08-[address] [facility] 30 [facility] ANTI-XA (HEPARIN LEVEL)on HEPARIN UNFRACTIONATED (U/ML) IN PPP BY CHROMOGENIC METHOD 0.35 IU/mL Normal 0.3-0.7 [facility] Comment on above: Result Comment: Rivaroxaban and Apixaban will interfere with the anti Xa assay used to monitor UFH and LMWH. Performed By: #### L [id number] ####[facility] LAB (BEAKER)[address] [facility] [address] HEPARIN UNFRACTIONATED (U/ML) IN PPP BY CHROMOGENIC METHOD 0.25 IU/mL Low 0.3-0.7 [facility] Comment on above: Result Comment: Rivaroxaban and Apixaban will interfere with the anti Xa assay used to monitor UFH and LMWH. Performed By: #### L [id number] ####[facility] LAB (BEAKER)[address] [place] [address] CBCon 06-08-2023 Erythrocyte distribution width (RBC) [Ratio] 15.7 % High 11.5-15.0 [facility] Comment on above: Performed By: #### [id number] ####[facility] BRONWYN LAB (BEAKER)[address] [facility] [address] ERYTHROCYTE MEAN CORPUSCULAR HEMOGLOBIN CONCENTRATION (G/DL) BY AUTOMATED 31.1 g/dL Low 32.0-35.0 [facility] Comment on above: Performed By: #### [id number] ####[facility] [place] [address] Hematocrit (Bld) [Volume fraction] 44.0 % Normal 39.0-55.0 [facility] Comment on above: Performed By: #### [id number] ####[facility] BRONWYN LAB (BEAKER)[address] [place] [address] Hemoglobin (Bld) [Mass/Vol] 13.7 g/dL Normal 13.0-17.0 [facility] Comment on above: Performed By: #### [id number] ####[facility] BRONWYN LAB (BEAKER)[address] [place] [address] MCH (RBC) [Entitic mass] 27.9 pg Normal 27.0-33.0 [facility] Comment on above: Performed By: #### [id number] ####[facility] BRONWYN LAB (BEAKER)[address] [place] [address] MCV (RBC) [Entitic vol] 89.6 fL Normal 82.0-98.0 [facility] Comment on above: Performed By: #### [id number] ####[facility] BR[facility]YN LAB (BEAKER)[address] [place] [address] PLATELETS (10*3/UL) IN BLOOD AUTOMATED COUNT 247 10*3/uL Normal 150-400 [facility] Comment on above: Performed By: #### [id number] ####[facility] BR[facility]YN LAB (BEAKER)[address] [place] [address] RBC (Bld) [#/Vol] 4.91 10*6/uL Normal 4.20-5.70 [facility] Comment on above: Performed By: #### [id number] ####[facility] BR[facility]YN LAB (BEAKER)[address] [place] [address] WBC (Bld) [#/Vol] 6.19 10*3/uL Normal 4.00-10.60 [facility] Comment on above: Performed By: #### [id number] ####[facility] BRONWYN LAB (BEAKER)[address] [place] [address] CONSULTon 06-08-2023 CONSULT Normal [facility] DSon 06-08-2023 DS Normal [facility] Letter (Out)on 06-08-2023 Letter (Out) [id number] Judson Phillips E 1955 M Date Provider Department Center 06/08/2023 [id number], GENERIC PRO*INIT None No family history on file Normal [facility] RENAL FUNCTION PANELon 06-08 Albumin [Mass/Vol] 4.1 g/dL Normal 3.5-5.7 [facility] Comment on above: Performed By: #### [id number] ####[facility] LAB (BEAKER)[address] [place] [address] Anion gap [Moles/Vol] 18 mmol/L Normal 7-20 [facility] Comment on above: Performed By: #### [id number] ####[facility] AL LAB (BEAKER)[address] [place] [address] CALCIUM (MG/DL) CORRECTED FOR ALBUMIN IN SER/PLAS Normal [facility] Comment on above: Result Comment: Not Calculated Performed By: #### L [id number] ####[facility] (BEAKER)[address] [place] [address] Calcium [Mass/Vol] 9.4 mg/dL Normal 8.6-10.3 [facility] Comment on above: Performed By: #### [id number] ####[facility] AL LAB (BEAKER)[address] [place] [address] Chloride [Moles/Vol] 105 mmol/L Normal 98-107 [facility] Comment on above: Performed By: #### [id number] ####[facility] AL LAB (BEAKER)[address] [place] [address] CO2 [Moles/Vol] 17 mmol/L Low 21-31 [facility] Comment on above: Performed By: #### [id number] ####[facility] AL LAB (BEAKER)[address] [place] [address] Creatinine [Mass/Vol] 0.90 mg/dL Normal 0.70-1.30 [facility] Comment on above: Performed By: #### [id number] ####[facility] AL LAB (BEAKER)[address] [place] [address] FASTING? unknown Normal [facility] Comment on above: Performed By: #### [id number] ####[facility] AL LAB (BEAKER)[address] [place] [address] GLOMERULAR FILTRATION RATE ML/MIN/1.73 SQ M.PREDICTED 93.0 mL/min/1.73m*2 Normal >60.0 [facility] Comment on above: Result Comment: The [facility]'s estimated glomerular filtration rate (eGFR) will [...] of individuals. Performed By: #### L [id number] ####[facility] (BEAKER)[address] [place] [address] Glucose [Mass/Vol] 120 mg/dL High 70-100 [facility] Comment on above: Performed By: #### [id number] ####[facility] LAB (BEAKER)[address] [place] [address] Magnesium [Mass/Vol] 2.8 mg/dL Normal 2.5-5.0 [facility] Comment on above: Performed By: #### [id number] ####[facility] LAB (BEAKER)[address] [place] [address] Potassium [Moles/Vol] 4.2 mmol/L Normal 3.5-5.1 [facility] Comment on above: Performed By: #### [id number] ####[facility] LAB (BEAKER)[address] [place] [address] Sodium [Moles/Vol] 136 mmol/L Normal 136-145 [facility] Comment on above: Performed By: #### [id number] ####[facility] LAB (BEAKER)[address] [place] [address] Urea nitrogen [Mass/Vol] 17 mg/dL Normal 7-25 [facility] Comment on above: Performed By: #### [id number] ####[facility] AL LAB (BEAKER)[address] [place] [address] UREA NITROGEN/CREATIN INE (MASS RATIO) IN SER/PLAS 18.9 Normal [facility] Comment on above: Performed By: #### [id number] ####[facility] ([facility])[address] [place] [address] TROPONIN Ion 06-08-2023 Troponin I.cardiac [Mass/Vol] 0.15 ng/mL Critically high 0.00-0.04 [facility] Comment on above: Result Comment: M-PREVIOUS CRITICAL RESU LTPrevious result verified on 06/08/2023 0558 on specimen/case [id number] called with component Troponin I for procedure Troponin I with value 0.17 ng/mL. Performed By: #### L [id number] ####[facility] ([facility])[address] [place] [address] Troponin I.cardiac [Mass/Vol] 0.17 ng/mL Critically high 0.00-0.04 [facility] Comment on above: Result Comment: M-PREVIOUS CRITICAL RESU LTPrevious result verified on 06/07/2023 2231 on specimen/case [id number] called with component Troponin I for procedure Troponin I with value 0.15 ng/mL. Performed By: #### L [id number] ####[facility] ([facility])[address] [place] [address] 30on 06-07-2023 30 Normal [facility] 30 Normal [facility] ANTI-XA (HEPARIN LEVEL)on HEPARIN UNFRACTIONATED (U/ML) IN PPP BY CHROMOGENIC METHOD 0.30 IU/mL Normal 0.3-0.7 [facility] Comment on above: Result Comment: Rivaroxaban and Apixaban will interfere with the anti Xa assay used to monitor UFH and LMWH. Performed By: #### L [id number] ####[facility] ([facility])[address] [place] [address] HEPARIN UNFRACTIONATED (U/ML) IN PPP BY CHROMOGENIC METHOD 0.23 IU/mL Low 0.3-0.7 [facility] Comment on above: Result Comment: Rivaroxaban and Apixaban will interfere with the anti Xa assay used to monitor UFH and LMWH. Performed By: #### L [id number] ####[facility] (BEAKER)[address] [place] [address] HEPARIN UNFRACTIONATED (U/ML) IN PPP BY CHROMOGENIC METHOD 0.20 IU/mL Low 0.3-0.7 [facility] Comment on above: Result Comment: Rivaroxaban and Apixaban will interfere with the anti Xa assay used to monitor UFH and LMWH. Performed By: #### L [id number] ####[facility] ([facility])[address] [place] [address] BASIC METABOLIC PANELon 12- Anion gap [Moles/Vol] 12 mmol/L Normal 7-20 [facility] Comment on above: Performed By: #### [id number] ####[facility] ([facility])[address] [place] [address] Calcium [Mass/Vol] 8.9 mg/dL Normal 8.6-10.3 [facility] Comment on above: Performed By: #### [id number] ####[facility] [place] [address] Chloride [Moles/Vol] 104 mmol/L Normal 98-107 [facility] Comment on above: Performed By: #### [id number] ####[facility] ([facility])[address] [place] [address] CO2 [Moles/Vol] 23 mmol/L Normal 21-31 [facility] Comment on above: Performed By: #### [id number] ####[facility] ([facility])[address] [place] [address] Creatinine [Mass/Vol] 0.96 mg/dL Normal 0.70-1.30 [facility] Comment on above: Performed By: #### [id number] ####[facility] ([facility])[address] [place] [address] GLOMERULAR FILTRATION RATE ML/MIN/1.73 SQ M.PREDICTED 86.1 mL/min/1.73m*2 Normal >60.0 [facility] Comment on above: Result Comment: The [facility]???s estimated glomerular filtration rate (eGFR) will [...] of individuals. Performed By: #### L [id number] ####[facility] ([facility])[address] [place] [address] Glucose [Mass/Vol] 121 mg/dL High 70-100 [facility] Comment on above: Performed By: #### [id number] ####[facility] LAB (BEAKER)[address] [place] [address] Potassium [Moles/Vol] 3.6 mmol/L Normal 3.5-5.1 [facility] Comment on above: Performed By: #### [id number] ####[facility] LAB (BEAKER)[address] [place] [address] Sodium [Moles/Vol] 135 mmol/L Low 136-145 [facility] Comment on above: Performed By: #### [id number] ####[facility] AL LAB (BEAKER)[address] [place] [address] Urea nitrogen [Mass/Vol] 26 mg/dL High 7-25 [facility] Comment on above: Performed By: #### [id number] ####[facility] AL LAB (BEAKER)[address] [place] [address] UREA NITROGEN/CREATIN INE (MASS RATIO) IN SER/PLAS 27.1 Normal [facility] Comment on above: Performed By: #### [id number] ####[facility] AL LAB (BEAKER)[address] [place] [address] POCT GLUCOSE METER UNSOLICIT ED RESULTSon 06-07-2023 Glucose [Mass/Vol] 155 mg/dL High 70-105 [facility] Comment on above: Order Comment: Waived Testing in the ED is performed under the ED CLIA certificate #[id number]. Result Comment: sonam [email or web address] Performed By: #### L [id number] ####[facility] ([facility])[address] [place] [address] TROPONIN Ion 06-07-2023 Troponin I.cardiac [Mass/Vol] 0.15 ng/mL Critically high 0.00-0.04 [facility] Comment on above: Result Comment: M-PREVIOUS CRITICAL RESU LTPrevious result verified on 06/07/2023 1431 on specimen/case [id number] called with component Troponin I for procedure Troponin I with value 0.16 ng/mL. Performed By: #### L [id number] ####[facility] ([facility])[address] [place] [address] Troponin I.cardiac [Mass/Vol] 0.16 ng/mL Critically high 0.00-0.04 [facility] Comment on above: Result Comment: M-PREVIOUS CRITICAL RESU LTPrevious result verified on 06/07/2023 0546 on specimen/case [id number] called with component Troponin I for procedure Troponin I with value 0.16 ng/mL. Performed By: #### L [id number] ####[facility] ([facility])[address] [place] [address] Troponin I.cardiac [Mass/Vol] 0.16 ng/mL Critically high 0.00-0.04 [facility] Comment on above: Result Comment: M-PREVIOUS CRITICAL RESU LTPrevious result verified on 06/07/2023 0130 on specimen/case [id number] called with component Troponin I for procedure Troponin I with value 0.16 ng/mL. Performed By: #### L [id number] ####[facility] ([facility])[address] [place] [address] 30on 06-06-2023 30 Normal [facility] 30 Normal [facility] 30 Normal [facility] ANTI-XA (HEPARIN LEVEL)on 12 -10-2023 HEPARIN UNFRACTIONATED (U/ML) IN PPP BY CHROMOGENIC METHOD 0.38 IU/mL Normal 0.3-0.7 [facility] Comment on above: Result Comment: Rivaroxaban and Apixaban will interfere with the anti Xa assay used to monitor UFH and LMWH. Performed By: #### L [id number] ####[facility] LAB (BEAKER)[address] [place] [address] BASIC METABOLIC PANELon 12 Anion gap [Moles/Vol] 14 mmol/L Normal 7-20 [facility] Comment on above: Performed By: #### [id number] ####[facility] AL LAB (BEAKER)[address] [employer] [place] [address] Calcium [Mass/Vol] 9.5 mg/dL Normal 8.6-10.3 [facility] Comment on above: Performed By: #### [id number] ####[facility] AL LAB (BEAKER)[address] [facility] [address] Chloride [Moles/Vol] 104 mmol/L Normal 98-107 [facility] Comment on above: Performed By: #### [id number] ####[facility] AL LAB (BEAKER)[address] [facility] [address] CO2 [Moles/Vol] 23 mmol/L Normal 21-31 [facility] Comment on above: Performed By: #### [id number] ####[facility] AL LAB (BEAKER)[address] [facility] [address] Creatinine [Mass/Vol] 1.41 mg/dL High 0.70-1.30 [facility] Comment on above: Performed By: #### [id number] ####[facility] AL LAB (BEAKER)[address] [employer] [place] [address] GLOMERULAR FILTRATION RATE ML/MIN/1.73 SQ M.PREDICTED 54.3 mL/min/1.73m*2 Low >60.0 [facility] Comment on above: Result Comment: The [facility]???s estimated glomerular filtration rate (eGFR) will [...] of individuals. Performed By: #### L [id number] ####[facility] ([facility])[address] [place] [address] Glucose [Mass/Vol] 124 mg/dL High 70-100 [facility] Comment on above: Performed By: #### [id number] ####[facility] [place] [address] Potassium [Moles/Vol] 3.9 mmol/L Normal 3.5-5.1 [facility] Comment on above: Performed By: #### [id number] ####[facility] [place] [address] Sodium [Moles/Vol] 137 mmol/L Normal 136-145 [facility] Comment on above: Performed By: #### [id number] ####[facility] [place] [address] Urea nitrogen [Mass/Vol] 32 mg/dL High 7-25 [facility] Comment on above: Performed By: #### [id number] ####[facility] ([facility] [place] [address] UREA NITROGEN/CREATIN INE (MASS RATIO) IN SER/PLAS 22.7 Normal [facility] Comment on above: Performed By: #### [id number] ####[facility] ([facility])[address] [place] [address] CBCon 06-06-2023 Erythrocyte distribution width (RBC) [Ratio] 15.8 % High 11.5-15.0 [facility] Comment on above: Performed By: #### [id number] ####[facility] LAB (BEAKER)[address] [place] [address] ERYTHROCYTE MEAN CORPUSCULAR HEMOGLOBIN CONCENTRATION (G/DL) BY AUTOMATED 32.8 g/dL Normal 32.0-35.0 [facility] Comment on above: Performed By: #### [id number] ####[facility] LAB (BEAKER)[address] [place] [address] Hematocrit (Bld) [Volume fraction] 42.1 % Normal 39.0-55.0 [facility] Comment on above: Performed By: #### [id number] ####[facility] LAB (BEAKER)[address] [place] [address] Hemoglobin (Bld) [Mass/Vol] 13.8 g/dL Normal 13.0-17.0 [facility] Comment on above: Performed By: #### [id number] ####[facility] LAB (BEAKER)[address] [place] [address] MCH (RBC) [Entitic mass] 28.4 pg Normal 27.0-33.0 [facility] Comment on above: Performed By: #### [id number] ####[facility] LAB (BEAKER)[address] [place] [address] MCV (RBC) [Entitic vol] 86.6 fL Normal 82.0-98.0 [facility] Comment on above: Performed By: #### [id number] ####[facility] LAB (BEAKER)[address] [place] [address] PLATELETS (10*3/UL) IN BLOOD AUTOMATED COUNT 220 10*3/uL Normal 150-400 [facility] Comment on above: Performed By: #### [id number] ####[facility] LAB (BEAKER)[address] [place] [address] RBC (Bld) [#/Vol] 4.86 10*6/uL Normal 4.20-5.70 [facility] Comment on above: Performed By: #### [id number] ####[facility] LAB (BEAKER)[address] [place] [address] WBC (Bld) [#/Vol] 6.09 10*3/uL Normal 4.00-10.60 [facility] Comment on above: Performed By: #### [id number] ####[facility] ([facility])[address] [place] [address] TROPONIN Ion 06-06-2023 Troponin I.cardiac [Mass/Vol] 0.16 ng/mL Critically high 0.00-0.04 [facility] Comment on above: Result Comment: M-PREVIOUS CRITICAL RESU LTPrevious result verified on 06/06/2023 1220 on specimen/case [id number] called with component Troponin I for procedure Troponin I with value 0.18 ng/mL. Performed By: #### L [id number] ####[facility] ([facility])[address] [place] [address] Troponin I.cardiac [Mass/Vol] 0.15 ng/mL Critically high 0.00-0.04 [facility] Comment on above: Result Comment: M-PREVIOUS CRITICAL RESU LTPrevious result verified on 06/06/2023 1220 on specimen/case [id number] called with component Troponin I for procedure Troponin I with value 0.18 ng/mL. Performed By: #### L [id number] ####[facility] ([facility])[address] [place] [address] Troponin I.cardiac [Mass/Vol] 0.18 ng/mL Critically high 0.00-0.04 [facility] Comment on above: Result Comment: Previous result verified on 06/05/2023 1840 on specimen/case [id number] called with component Troponin I for procedure Troponin I with value 0.14 ng/mL. Performed By: #### L [id number] ####[facility] ([facility])[address] [place] [address] Troponin I.cardiac [Mass/Vol] 0.18 ng/mL Critically high 0.00-0.04 [facility] Comment on above: Result Comment: M-PREVIOUS CRITICAL RESU LTPrevious result verified on 06/05/2023 1840 on specimen/case [id number] called with component Troponin I for procedure Troponin I with value 0.14 ng/mL. Performed By: #### L [id number] ####[facility] ([facility])[address] [place] [address] 30on 06-05-2023 30 Normal [facility] ANTI-XA (HEPARIN LEVEL)on HEPARIN UNFRACTIONATED (U/ML) IN PPP BY CHROMOGENIC METHOD 0.44 IU/mL Normal 0.3-0.7 [facility] Comment on above: Result Comment: Rivaroxaban and Apixaban will interfere with the anti Xa assay used to monitor UFH and LMWH. Performed By: #### L [id number] ####[facility] ([facility])[address] [place] [address] HEPARIN UNFRACTIONATED (U/ML) IN PPP BY CHROMOGENIC METHOD 0.63 IU/mL Normal 0.3-0.7 [facility] Comment on above: Result Comment: Rivaroxaban and Apixaban will interfere with the anti Xa assay used to monitor UFH and LMWH. Performed By: #### L [id number] ####[facility] ([facility])[address] [place] [address] HEPARIN UNFRACTIONATED (U/ML) IN PPP BY CHROMOGENIC METHOD 0.98 IU/mL Critically high 0.3-0.7 [facility] Comment on above: Result Comment: Rivaroxaban and Apixaban will interfere with the anti Xa assay used to monitor UFH and LMWH. Performed By: #### L [id number] ####[facility] ([facility])[address] [place] [address] HEPARIN UNFRACTIONATED (U/ML) IN PPP BY CHROMOGENIC METHOD 0.60 IU/mL Normal 0.3-0.7 [facility] Comment on above: Order Comment: Check anti-Xa level every 6 hours while on heparin infusion, or per protocol. Result Comment: [place] roxaban and Apixaban will interfere with the anti Xa assay used to monitor UFH and LMWH. Performed By: #### L [id number] ####[facility] LAB (BEAKER)[address] [place] [address] APTTon 06-05-2023 ACTIVATED PARTIAL THROMBOPLASTIN TIME IN PPP BY COAGULATION ASSAY 44.2 Seconds High 25.0-35.0 [facility] Comment on above: Order Comment: Baseline aPTT before init iating heparin infusion. Result Comment: Clin ical significance of the APTT is questionable in the presence of heparin. Performed By: #### L [id number] ####[facility] (BEAKER)[address] [place] [address] B-TYPE NATRIURETIC PEPTIDEon 06-05-2023 Natriuretic peptide B (Bld) [Mass/Vol] 1109 pg/mL High 0-100 [facility] Comment on above: Performed By: #### [id number] ####[facility] [place] [address] CBC WITH AUTO DIFFERENTIALon 06-05-2023 Basophils (Bld) [#/Vol] 0.05 10*3/uL Normal 0.00-0.20 [facility] Comment on above: Performed By: #### [id number] ####[facility] ITAL LAB (BEAKER)[address] [place] [address] Basophils/100 WBC (Bld) 0.6 % Normal 0.0-1.0 [facility] Comment on above: Performed By: #### [id number] ####[facility] ITAL LAB (BEAKER)[address] [place] [address] Eosinophils (Bld) [#/Vol] 0.06 10*3/uL Normal 0.00-0.50 [facility] Comment on above: Performed By: #### [id number] ####[facility] ITAL LAB (BEAKER)[address] [place] [address] Eosinophils/100 WBC (Bld) 0.7 % Normal 0.0-6.0 [facility] Comment on above: Performed By: #### [id number] ####[facility] ITAL LAB (BEAKER)[address] [place] [address] Erythrocyte distribution width (RBC) [Ratio] 15.5 % High 11.5-15.0 [facility] Comment on above: Performed By: #### [id number] ####[facility] ITAL LAB (BEAKER)[address] [place] [address] ERYTHROCYTE MEAN CORPUSCULAR HEMOGLOBIN CONCENTRATION (G/DL) BY AUTOMATED 32.7 g/dL Normal 32.0-35.0 [facility] Comment on above: Performed By: #### [id number] ####[facility] LAB (BEAKER)[address] [place] [address] Hematocrit (Bld) [Volume fraction] 41.6 % Normal 39.0-55.0 [facility] Comment on above: Performed By: #### [id number] ####[facility] ITAL LAB (BEAKER)[address] [place] [address] Hemoglobin (Bld) [Mass/Vol] 13.6 g/dL Normal 13.0-17.0 [facility] Comment on above: Performed By: #### [id number] ####[facility] ITAL LAB (BEAKER)[address] [place] [address] Immature granulocytes (Bld) [#/Vol] 0.03 10*3/uL Normal 0.00-0.20 [facility] Comment on above: Performed By: #### [id number] ####[facility] ITAL LAB (BEAKER)[address] [place] [address] Immature granulocytes/100 WBC (Bld) 0.3 % Normal 0.0-1.0 [facility] Comment on above: Performed By: #### [id number] ####[facility] ITAL LAB (BEAKER)[address] [place] [address] Lymphocytes (Bld) [#/Vol] 0.53 10*3/uL Low 1.20-4.00 [facility] Comment on above: Performed By: #### [id number] ####[facility] ITAL LAB (BEAKER)[address] [place] [address] Lymphocytes/100 WBC (Bld) 5.9 % Low 20.0-45.0 [facility] Comment on above: Performed By: #### [id number] ####[facility] ITAL LAB (BEAKER)[address] [place] [address] MCH (RBC) [Entitic mass] 28.5 pg Normal 27.0-33.0 [facility] Comment on above: Performed By: #### [id number] ####[facility] ITAL LAB (BEAKER)[address] [place] [address] MCV (RBC) [Entitic vol] 87.0 fL Normal 82.0-98.0 [facility] Comment on above: Performed By: #### [id number] ####[facility] ITAL LAB (BEAKER)[address] [place] [address] Monocytes (Bld) [#/Vol] 0.90 10*3/uL Normal 0.10-1.00 [facility] Comment on above: Performed By: #### [id number] ####[facility] ITAL LAB (BEAKER)[address] [place] [address] Monocytes/100 WBC (Bld) 10.1 % Normal 5.0-12.0 [facility] Comment on above: Performed By: #### [id number] ####[facility] ITAL LAB (BEAKER)[address] [place] [address] Neutrophils (Bld) [#/Vol] 7.34 10*3/uL Normal 1.60-7.60 [facility] Comment on above: Performed By: #### [id number] ####[facility] ITAL LAB (BEAKER)[address] [place] [address] Neutrophils/100 WBC (Bld) 82.4 % High 40.0-72.0 [facility] Comment on above: Performed By: #### [id number] ####[facility] ITAL LAB (BEAKER)[address] [place] [address] NRBC (PER 100 WBCS) BY AUTOMATED COUNT 0.0 % Normal 0 [facility] Comment on above: Performed By: #### [id number] ####[facility] ITAL LAB (BEAKER)[address] [place] [address] PLATELETS (10*3/UL) IN BLOOD AUTOMATED COUNT 224 10*3/uL Normal 150-400 [facility] Comment on above: Performed By: #### [id number] ####[facility] ITAL LAB (BEAKER)[address] [place] [address] RBC (Bld) [#/Vol] 4.78 10*6/uL Normal 4.20-5.70 [facility] Comment on above: Performed By: #### [id number] ####[facility] ITAL LAB (BEAKER)[address] [place] [address] WBC (Bld) [#/Vol] 8.91 10*3/uL Normal 4.00-10.60 [facility] Comment on above: Performed By: #### [id number] ####[facility] ITAL LAB (BEAKER)[address] [place] [address] COMPREHENSIVE METABOLIC PANE Jayden 06-05-2023 Albumin [Mass/Vol] 4.4 g/dL Normal 3.5-5.7 [facility] Comment on above: Performed By: #### [id number] ####[facility] AL LAB (BEAKER)[address] [place] [address] ALP [Catalytic activity/Vol] 216 U/L High 34-104 [facility] Comment on above: Performed By: #### [id number] ####[facility] AL LAB (BEAKER)[address] [place] [address] ALT [Catalytic activity/Vol] 79 U/L High 7-52 [facility] Comment on above: Performed By: #### [id number] ####[facility] AL LAB (BEAKER)[address] [place] [address] Anion gap [Moles/Vol] 17 mmol/L Normal 7-20 [facility] Comment on above: Performed By: #### [id number] ####[facility] AL LAB (BEAKER)[address] [place] [address] AST [Catalytic activity/Vol] 67 U/L High 13-39 [facility] Comment on above: Performed By: #### [id number] ####[facility] AL LAB (BEAKER)[address] [place] [address] Bilirubin [Mass/Vol] 0.7 mg/dL Normal 0.3-1.0 [facility] Comment on above: Performed By: #### [id number] ####[facility] AL LAB (BEAKER)[address] [place] [address] Calcium [Mass/Vol] 9.6 mg/dL Normal 8.6-10.3 [facility] Comment on above: Performed By: #### [id number] ####[facility] LAB (BEAKER)[address] [place] [address] Chloride [Moles/Vol] 101 mmol/L Normal 98-107 [facility] Comment on above: Performed By: #### [id number] ####[facility] LAB (BEAKER)[address] [place] [address] CO2 [Moles/Vol] 18 mmol/L Low 21-31 [facility] Comment on above: Performed By: #### [id number] ####[facility] AL LAB (BEAKER)[address] [place] [address] Creatinine [Mass/Vol] 1.29 mg/dL Normal 0.70-1.30 [facility] Comment on above: Performed By: #### [id number] ####[facility] AL LAB (BEAKER)[address] [place] [address] GLOMERULAR FILTRATION RATE ML/MIN/1.73 SQ M.PREDICTED 60.4 mL/min/1.73m*2 Normal >60.0 [facility] Comment on above: Result Comment: The [facility]???s estimated glomerular filtration rate (eGFR) will [...] of individuals. Performed By: #### L [id number] ####[facility] (BEAKER)[address] [place] [address] Glucose [Mass/Vol] 156 mg/dL High 70-100 [facility] Comment on above: Performed By: #### [id number] ####[facility] AL LAB (BEAKER)[address] [place] [address] Potassium [Moles/Vol] 4.3 mmol/L Normal 3.5-5.1 [facility] Comment on above: Performed By: #### [id number] ####[facility] AL LAB (BEAKER)[address] [place] [address] Protein [Mass/Vol] 7.2 g/dL Normal 6.0-8.3 [facility] Comment on above: Performed By: #### [id number] ####[facility] AL LAB (BEAKER)[address] [place] [address] Sodium [Moles/Vol] 132 mmol/L Low 136-145 [facility] Comment on above: Performed By: #### [id number] ####[facility] AL LAB (BEAKER)[address] [place] [address] Urea nitrogen [Mass/Vol] 26 mg/dL High 7-25 [facility] Comment on above: Performed By: #### [id number] ####[facility] AL LAB (BEAKER)[address] [place] [address] UREA NITROGEN/CREATIN INE (MASS RATIO) IN SER/PLAS 20.2 [facility] Comment on above: Performed By: #### [id number] ####[facility] AL LAB (BEAKER)[address] [place] [address] CONSULTon 06-05-2023 CONSULT Normal [facility] EDPROVon 06-05-2023 EDPROV Normal [facility] EDPROV Invalid Interpretation Code [facility] HPon 06-05-2023 HP Normal [facility] LACTIC ACID WITH 4 HOUR REFL EXon 06-05-2023 LACTATE (MMOL/L) IN SER/PLAS 1.7 mmol/L Normal 0.5-2.2 [facility] Comment on above: Performed By: #### [id number] ####[facility] (BEAKER)[address] [place] [address] LACTATE (MMOL/L) IN SER/PLAS 2.3 mmol/L High 0.5-2.2 [facility] Comment on above: Performed By: #### [id number] ####[facility] (BEAKER)[address] [place] [address] LIPID PANELon 06-05-2023 CHOL/HDL 2.7 mg/dL Normal [facility] Comment on above: Performed By: #### [id number] ####[facility] LAB (BEAKER)[address] [place] [address] Cholesterol [Mass/Vol] 109 mg/dL Low 120-200 [facility] Comment on above: Performed By: #### [id number] ####[facility] LAB (BEAKER)[address] [place] [address] Magnesium [Mass/Vol] 67 mg/dL Normal 40-149 [facility] Comment on above: Result Comment: TRIGLYCERIDE REFERENCE R ZORAN:20 YEARS AND OLDER CARDIOVASCULAR RISKLESS THAN 150 mg/dL LOW [id number] TO 199 mg/dL BORDERLINE [id number] mg/dL AND GREATER HIGH RISK Performed By: #### L [id number] ####[facility] (BEAKER)[address] [place] [address] Magnesium [Mass/Vol] 56 mg/dL Normal 0-160 [facility] Comment on above: Performed By: #### [id number] ####[facility] (BEAKER)[address] [place] [address] Magnesium [Mass/Vol] 40 mg/dL Normal 23-92 [facility] Comment on above: Performed By: #### [id number] ####[facility] ([facility])[address] [place] [address] NON HDL CHOL. (LDL+VLDL) 69 Normal [facility] Comment on above: Performed By: #### [id number] ####[facility] ([facility])[address] [place] [address] TOTAL VLDL-C 13 mg/dL Normal 0-40 [facility] Comment on above: Performed By: #### [id number] ####[facility] [place] [address] MAGNESIUMon 06-05-2023 Magnesium [Mass/Vol] 2.0 mg/dL Normal 1.9-2.7 [facility] Comment on above: Performed By: #### [id number] ####[facility] ([facility])[address] [place] [address] PLATELET COUNTon 06-05-2023 PLATELETS (10*3/UL) IN BLOOD AUTOMATED COUNT 204 10*3/uL Normal 150-400 [facility] Comment on above: Performed By: #### [id number] ####[facility] [place] [address] STREP PNEUMONIAE ANTIGEN, UR INEon 06-05-2023 STREPTOCOCCUS PNEUMONIAE AG PRESENCE IN URINE Negative Normal Negative [facility] Comment on above: Performed By: #### [id number] ####[facility] ITAL [facility] ([facility])[address] [place] [address] TROPONIN Ion 06-05-2023 Troponin I.cardiac [Mass/Vol] 0.16 ng/mL Critically high 0.00-0.04 [facility] Comment on above: Result Comment: M-PREVIOUS CRITICAL RESU LTPrevious result verified on 06/05/2023 1840 on specimen/case [id number] called with component Troponin I for procedure Troponin I with value 0.14 ng/mL. Performed By: #### L [id number] ####[facility] ([facility])[address] [place] [address] Troponin I.cardiac [Mass/Vol] 0.14 ng/mL Critically high 0.00-0.04 [facility] Comment on above: Result Comment: M-PREVIOUS CRITICAL RESU LTPrevious result verified on 06/05/2023 0833 on specimen/case [id number] called with component Troponin I for procedure Troponin I with value 0.13 ng/mL. Performed By: #### L [id number] ####[facility] ([facility])[address] [place] [address] Troponin I.cardiac [Mass/Vol] 0.13 ng/mL Critically high 0.00-0.04 [facility] Comment on above: Result Comment: Previous result verified on 06/05/2023 0245 on specimen/case [id number] called with component Troponin I for procedure Troponin I with value 0.13 ng/mL. Performed By: #### L [id number] ####[facility] ([facility])[address] [place] [address] Troponin I.cardiac [Mass/Vol] 0.13 ng/mL Critically high 0.00-0.04 [facility] Comment on above: Result Comment: M-TROPONIN INITIAL CRITI ANNA HIGH; RESPUN AND RETESTED Performed By: #### L [id number] ####[facility] ([facility])[address] [place] [address] URINALYSIS MICROSCOPIC WITH REFLEX CULTUREon 06-05-2023 CASTS IN URINE Present Abnormal None Seen [facility] Comment on above: Performed By: #### [id number] ####[facility] ITAL [facility] ([facility])[address] [place] [address] CRYSTALS IN URINE Normal [facility] Comment on above: Performed By: #### [id number] ####[facility]AL [facility] ([facility])[address] [place] [address] GRANULAR CASTS (#/LPF) IN URINE 4 LPF High <1 [facility] Comment on above: Result Comment: Checked by manual micros copy. Performed By: #### L [id number] ####[facility] ([facility])[address] [place] [address] MUCUS (#/HPF) IN URINE SEDIMENT Occasional Normal None Seen, Occasional, Few [facility] Comment on above: Performed By: #### [id number] ####[facility] ITAL LAB ([facility])[address] [place] [address] OTHER MICROSCOPIC ELEMENTS Normal [facility] Comment on above: Performed By: #### [id number] ####[facility] ITAL LAB ([facility])[address] [place] [address] RBC (#/HPF) IN URINE SEDIMENT 3-5 Abnormal None Seen [facility] Comment on above: Performed By: #### [id number] ####[facility] ITAL LAB ([facility])[address] [place] [address] SQUAMOUS EPITHELIAL CELLS (#/HPF) IN URINE SEDIMENT None Seen Normal None Seen, Occasional [facility] Comment on above: Performed By: #### [id number] ####[facility] ITAL LAB ([facility])[address] [place] [address] WBC (LEUKOCYTE) (#/HPF) IN URINE SEDIMENT 6-10 Abnormal None Seen [facility] Comment on above: Performed By: #### [id number] ####[facility] ITAL [facility] ([facility])[address] [place] [address] URINALYSIS WITH REFLEX CULTU REon 06-05-2023 BILIRUBIN, TOTAL PRESENCE IN URINE Negative Normal Negative [facility] Comment on above: Performed By: #### [id number] ####[facility] ITAL LAB ([facility])[address] [place] [address] Clarity (U) Slightly Cloudy Abnormal Clear [facility] Comment on above: Performed By: #### [id number] ####[facility] ITAL LAB ([facility])[address] [place] [address] Color (U) Yellow Normal Yellow [facility] Comment on above: Performed By: #### [id number] ####[facility] ITAL LAB ([facility])[address] [place] [address] Glucose (U) [Mass/Vol] mg/dL Abnormal Negative [facility] Comment on above: Performed By: #### [id number] ####[facility] ITAL LAB ([facility])[address] [place] [address] HEMOGLOBIN PRESENCE IN URINE Moderate Abnormal Negative [facility] Comment on above: Performed By: #### [id number] ####[facility] ITAL [facility] ([facility])[address] [place] [address] Ketones Ql (U) Negative Normal Negative [facility] Comment on above: Performed By: #### [id number] ####[facility] ITAL LAB ([facility])[address] [place] [address] LEUKOCYTE ESTERASE PRESENCE IN URINE BY TEST STRIP Negative Normal Negative [facility] Comment on above: Performed By: #### [id number] ####[facility] ITAL LAB ([facility])[address] [place] [address] NITRITE PRESENCE IN URINE Negative Normal Negative [facility] Comment on above: Performed By: #### [id number] ####[facility] ITAL LAB ([facility])[address] [place] [address] pH (U) 5.0 [pH] Normal 5.0-8.0 [facility] Comment on above: Performed By: #### [id number] ####[facility] ITAL LAB ([facility])[address] [place] [address] Protein (U) [Mass/Vol] 30 mg/dL Abnormal Negative [facility] Comment on above: Performed By: #### [id number] ####[facility] ITAL LAB ([facility])[address] [place] [address] Specific gravity (U) [Rel density] 1.016 Normal 1.015-1.020 [facility] Comment on above: Performed By: #### [id number] ####[facility] ITAL LAB ([facility])[address] [place] [address] EDNURSon 06-04-2023 EDNURS Normal [facility] Lab - Other Lab Resultson Lab - Other Lab Results [id number]#1.00OTGTIFF Normal [facility] Patient Handouton 02-18-2023 Patient Handout [id number]#1.00OTGTIFF Normal [facility] Patient Handouton 02-10-2023 Patient Handout [id number]#1.00OTGTIFF [facility] SYMPTOMATIC COVID-19 ANTIGEN on 02-24-2021 EUA Statement SEE BELOW Normal [facility] Comment on above: Result Comment: This test [...] sooner. Performed By: #### C VDAGS #### [facility] [address] [place], [place] [address] Kenji Nieto SARS-CoV-2 (COVID-19) RNA LISSY+probe Ql (Unsp spec) Positive Invalid Interpretation Code NEGATIVE [facility] Comment on above: Performed By: #### [id number] #### [facility] [address] [place], [place] [address] Kenji Nieto Cardiovascular Lab Reporton 03-24-2018 Cardiovascular Lab Report [facility] MR #: [id number] of Physician: Quyen Adame M.D.Medicine Service Date: 03/23/2018Division of Birthdate: 5Cardiology Room #: CCAdult CardiovascularServicesUniversit y XfweypsAysptf[address], [place] [address]Esjnb Fax Cardiovascular Laboratory ReportICD REPLACEMENT REPORTINDICATIONS FOR [...] 03/23/2018/02:45 P/Quyen Adame M.D.Date Trans: 03/24/2018 07:31 A/MaggiN_JN:[id number]: Mark Tam D.O. [address] [place] [address] Normal [facility] *MRSA/MSSA CULTUREon 018 *MRSA/MSSA CULTURE Clinical Report: (D) Specimen: NASAL SWAB Collected: 03/17/2018 09:49 Status: Final Last Updated: 03/18/2018 14:21 ISO (Final) No Methicillin Resistant Staphylococcus aureus Isolated (MRSA) ISO (Final) Methicillin Sensitive Staphylococcus aureus (MSSA) Normal [facility] Comment on above: Performed By: #### [id number] ####[facility] [facility].[address] BASIC METABOLIC PANELon 02-27 Calcium mass conc 9.1 mg/dL Normal 8.6-10.3 [facility] Comment on above: Performed By: #### [id number] ####[facility] [facility] [place] [address], [facility] Chloride molar conc 101 mmol/L Normal 98-107 [facility] Comment on above: Performed By: #### [id number] ####[facility] [facility] [place] [address], [facility] CO2 molar conc 28 mmol/L Normal 21-31 [facility] Comment on above: Performed By: #### [id number] ####[facility] [facility] [place] [address], [facility] Creatinine mass conc 0.91 mg/dL Normal 0.70-1.30 [facility] Comment on above: Performed By: #### [id number] ####[facility] [place] [address], [facility] GFR/1.73 sq M predicted among blacks MDRD vol rate/area (S/P/Bld) mL/min/{1.73_m2} Normal >60 [facility] Comment on above: Performed By: #### [id number] ####[facility] [place] [address], [facility] GFR/1.73 sq M predicted among non-blacks MDRD vol rate/area (S/P/Bld) mL/min/{1.73_m2} Normal >60 [facility] Comment on above: Performed By: #### [id number] ####[facility] [place] [address], [facility] Glucose mass conc 186 mg/dL High 70-100 [facility] Comment on above: Performed By: #### [id number] ####[facility] [place] [address], [facility] Potassium molar conc 4.2 mmol/L Normal 3.5-5.1 [facility] Comment on above: Performed By: #### [id number] ####[place] [address] [place] [address], [facility] Sodium molar conc 134 mmol/L Low 136-145 [facility] Comment on above: Performed By: #### [id number] ####[place] [address] [place] [address], [facility] Urea nitrogen mass conc 15 mg/dL Normal 7-25 [facility] Comment on above: Performed By: #### [id number] ####[place] [id number] [facility] CBC COMPLETE BLOOD COUNTon 0 03-17-2018 Erythrocyte distribution width Auto Ratio (RBC) 13.5 % Normal 11.5-15.0 [facility] Comment on above: Performed By: #### [id number] ####[facility] Hematocrit Auto Volume Fraction (Bld) 44.6 % Normal 39.0-50.0 [facility] Comment on above: Performed By: #### [id number] ####[facility] Hemoglobin mass conc (Bld) 14.6 g/dL Normal 13.0-17.0 [facility] Comment on above: Performed By: #### [id number] ####[address] MCH Auto Entitic mass (RBC) 28.8 pg Normal 27.0-33.0 [facility] Comment on above: Performed By: #### [id number] ####[place] [id number] MCHC Auto mass conc (RBC) 32.7 g/dL Normal 32.0-35.0 [facility] Comment on above: Performed By: #### [id number] ####[address] MCV Auto Entitic volume (RBC) 88.0 fL Normal 82.0-98.0 [facility] Comment on above: Performed By: #### [id number] ####[place] [id number] Nucleated RBC/100 WBC Ratio (Bld) 0 % Normal 0-0 [facility] Comment on above: Performed By: #### [id number] ####[address] PLAT CNT 243 10*3/uL Normal 150-400 [facility] Comment on above: Performed By: #### [id number] ####[place] [address], [place] RBC Auto #/vol (Bld) 5.07 10*6/uL Normal 4.20-5.70 [facility] Comment on above: Performed By: #### [id number] ####[facility] [place] [address], [facility] WBC Auto #/vol (Bld) 7.94 10*3/uL Normal 4.00-10.60 [facility] Comment on above: Performed By: #### [id number] ####[facility] Vital Signs Date Time Vital Sign Value Performing Clinician Faci lity 08-09-2023 16:54-0500 Body height 176.8 cm Shaikh Lily BARRAGAN Work Phone: [facility] 08-09-2023 16:54-0500 Body mass index (BMI) [Ratio] 26.13 kg/m2 Shaikh Lily BARRAGAN Work Phone: [facility] 08-09-2023 16:54-0500 Body weight 81.65 kg Shaikh Lily BARRAGAN Work Phone: [facility] 08-09-2023 16:54-0500 Diastolic blood pressure 60 mm[Hg] Shaikh Lily BARRAGAN Work Phone: [facility] 08-09-2023 16:54-0500 Heart rate 68 /min Shaikh Lily BARRAGAN Work Phone: [facility] 08-09-2023 16:54-0500 SaO2% (BldA) [Mass fraction] 98 % Shaikh Lily BARRAGAN Work Phone: [facility] 08-09-2023 16:54-0500 Systolic blood pressure 80 mm[Hg] Shaikh Lily BARRAGAN Work Phone: [facility] Healthcare Encounters Encounter Date Encounter Type Care Provider Facility Start: 11-26-2023 End: 11-27-2023 ambulatory MARLYS A [facility] Start: 11-25-2023 End: 11-27-2023 ambulatory MARLYS Bernal [facility] Start: 11-23-2023 End: 11-27-2023 ambulatory MARLYS Bernal [facility] Start: 11-18-2023 End: 11-27-2023 ambulatory MARLYS Bernal [facility] Start: 11-16-2023 End: 11-27-2023 ambulatory MARLYS ESTRADA [facility] Start: 11-12-2023 End: 11-27-2023 ambulatory MARLYS Bernal [facility] Start: 11-11-2023 End: 11-27-2023 ambulatory MARLYS Bernal [facility] Start: 11-09-2023 End: 11-27-2023 ambulatory MARLYS A [facility] Start: 11-05-2023 End: 11-06-2023 ambulatory MARK Baird [facility] Start: 11-05-2023 End: 11-27-2023 ambulatory MARLYS Bernal [facility] Start: 11-04-2023 End: 11-27-2023 ambulatory MARLYS Bernal [facility] Start: 11-02-2023 End: 11-27-2023 ambulatory MARLYS A [facility] Start: 11-01-2023 End: 11-01-2023 ambulatory AVILEZ FACHARLINE Not Available Start: 10-29-2023 End: 11-27-2023 ambulatory [facility] Start: 10-28-2023 End: 11-27-2023 ambulatory [facility] Start: 10-26-2023 End: 10-27-2023 ambulatory [facility] Start: 10-25-2023 ambulatory QUYEN [facility] Start: 10-21-2023 End: 10-27-2023 ambulatory [facility] Start: 10-21-2023 End: 10-27-2023 ambulatory SHAIKH LILY [facility] Start: 10-19-2023 End: 10-27-2023 ambulatory SHAIKH LILY [facility] Start: 10-14-2023 End: 10-27-2023 ambulatory MARK P HOUSE [facility] Start: 10-12-2023 End: 10-27-2023 ambulatory MARK P HOUSE [facility] Start: 10-08-2023 End: 10-08-2023 ambulatory [facility] Start: 10-08-2023 End: 10-27-2023 ambulatory MARK P HOUSE [facility] Start: 10-07-2023 End: 10-27-2023 ambulatory MARK P HOUSE [facility] Start: 10-05-2023 End: 10-27-2023 ambulatory MARK P HOUSE [facility] Start: 10-01-2023 End: 10-27-2023 ambulatory MARK P HOUSE [facility] Start: 09-30-2023 End: 10-27-2023 Clinical Support [facility] Comment on above: Acute myocardial inf arction, subendocardial infarction, initial episode of care ([facility]) Start: 09-29-2023 End: 09-29-2023 ambulatory SHAIKH LILY Not Available Start: 09-28-2023 End: 09-28-2023 ambulatory [facility] Start: 09-28-2023 End: 10-27-2023 ambulatory MARK P [facility] Start: 09-24-2023 End: 09-27-2023 Clinical Support [facility] Comment on above: Acute myocardial inf arction, subendocardial infarction, initial episode of care ([facility]) Start: 09-23-2023 End: 09-27-2023 ambulatory MARK P [facility] Start: 09-21-2023 End: 09-27-2023 Clinical Support [facility] Comment on above: Acute myocardial inf arction, subendocardial infarction, initial episode of care ([facility]) Start: 09-17-2023 End: 09-27-2023 Clinical Support [facility] Comment on above: Acute myocardial inf arction, subendocardial infarction, initial episode of care ([facility]) Start: 09-16-2023 End: 09-27-2023 ambulatory MARK [facility] Start: 09-14-2023 End: 09-27-2023 Clinical Support [facility] Comment on above: Acute myocardial inf arction, subendocardial infarction, initial episode of care ([facility]) Start: 09-10-2023 End: 09-27-2023 Clinical Support [facility] Comment on above: Acute myocardial inf arction, subendocardial infarction, initial episode of care ([facility]) Start: 09-09-2023 End: 09-27-2023 Clinical Support [facility] Therapist [address] [facility] Comment on above: Arrived Start: 09-07-2023 End: 09-27-2023 Clinical Support [facility] Therapist [address] [facility] Comment on above: Arrived Start: 09-03-2023 End: 09-27-2023 Clinical Support [facility] Therapist [address] [facility] Comment on above: Acute myocardial inf arction, subendocardial infarction, initial episode of care ([facility]) Start: 09-02-2023 End: 09-27-2023 ambulatory MARK P [facility] Start: 08-31-2023 End: 09-27-2023 ambulatory MARK [facility] Start: 08-30-2023 End: 08-30-2023 ambulatory SHAIKH LILY Not Available Start: 08-27-2023 End: 09-27-2023 ambulatory MARK P HOUSE [facility] Start: 08-26-2023 End: 08-27-2023 ambulatory MARK P HOUSE [facility] Start: 08-24-2023 End: [facility]: 08-24-[facility]23 End: 08-27-2023 ambulatory MARK P HOUSE [facility] Start: 08-20-2023 Evaluation and manag ement of inpatient YUSUF DAVEY DIXON [facility] Start: 08-20-2023 End: 08-27-2023 ambulatory MARK Baird HOU[facility] Start: 08-19-2023 End: 08-27-2023 ambulatory MARK P HOUSE [facility] Start: 08-17-2023 End: 08-27-2023 ambulatory MARK P [facility] Start: 08-16-2023 End: 08-17-2023 ambulatory MARK TAM Facility:[facility] Start: 08-16-2023 Evaluation and manag ement of inpatient [facility] Start: 08-15-2023 Evaluation and manag ement of inpatient [facility] Start: 08-14-2023 Evaluation and manag ement of inpatient [facility] Start: 08-13-2023 Evaluation and manag ement of inpatient [facility] Start: 08-13-2023 Evaluation and manag ement of inpatient [facility] Start: 08-13-2023 End: 08-27-2023 ambulatory MARK Baird [facility] Start: 08-13-2023 Evaluation and manag ement of inpatient [facility] Start: 08-12-2023 Evaluation and manag ement of inpatient [facility] Start: 08-12-2023 End: 08-27-2023 ambulatory MARK P [facility] Start: 08-11-2023 Evaluation and manag ement of inpatient TOMÁS RICHARD [facility] Start: 08-11-2023 Emergency department patient visit LACEY LOYOLA [facility] Start: 08-11-2023 End: 08-21-2023 Evaluation and management of inpatient BRI JAVIER [facility] Start: 08-10-2023 Clinisync Result Encounter Shaikh Lily BARRAGAN Work Phone: [facility] External Department Unsolicited Start: 08-10-2023 Clinisync Result Encounter Shaikh Lily BARRAGAN Work Phone: [facility] External Department Unsolicited Start: 08-09-2023 End: 08-27-2023 ambulatory SHAIKH LILY Not Available Start: 08-09-2023 End: 08-09-2023 Office outpatient new 60 minutes Shaikh Lily BARRAGAN Work Phone: [facility] Comment on above: Essential hypertensi on (CMS/HCC) (Primary Dx); HFrEF (heart failure with reduced ejection fraction) (CMS/HCC); Coronary artery disease involving jamul coronary artery of jamul heart without angina pectoris (CMS/HCC); Hyperlipidemia, unspecified hyperlipidemia type (CMS/HCC); Other hyperlipidemia (CMS/HCC); COPD mixed type (CMS/HCC); Type 2 diabetes mellitus without complication, without long-term current use of insulin (CMS/HCC); Generalized muscle ache; Encounter to establish care with new doctor Start: 08-09-2023 Gema Bautista MD Work Phone: [facility] Start: 08-09-2023 Gema Bautista MD Work Phone: [facility] Start: 08-06-2023 End: 08-27-2023 ambulatory [facility] Start: 08-05-2023 End: 08-27-2023 ambulatory [facility] Start: 08-03-2023 End: 08-27-2023 ambulatory [facility] Start: 07-30-2023 End: 08-27-2023 ambulatory MARK [facility] Start: 07-29-2023 End: 08-27-2023 ambulatory [facility] Start: 07-27-2023 End: 07-29-2023 Clinical Support [facility] Comment on above: Acute myocardial inf arction, subendocardial infarction, initial episode of care ([facility]) Start: 07-23-2023 End: 07-29-2023 Clinical Support [facility] The[facility] Comment on above: Acute myocardial inf arction, subendocardial infarction, initial episode of care ([facility]) Start: 07-22-2023 End: 07-29-2023 Clinical Support [facility] The[facility] Comment on above: Arrived Start: 07-21-2023 End: 07-22-2023 ambulatory MARK [facility] Start: 07-19-2023 End: 07-29-2023 ambulatory Zeeshan Carmichael MD Facility:[facility] Start: 07-16-2023 End: 07-29-2023 ambulatory MARK [facility] Start: 07-15-2023 End: 07-29-2023 Clinical Support [facility] The[facility] Comment on above: Acute myocardial inf arction, subendocardial infarction, initial episode of care ([facility]) Start: 07-13-2023 End: 07-29-2023 Clinical Support [facility] Therap[facility] Comment on above: Acute myocardial inf arction, subendocardial infarction, initial episode of care ([facility]) Start: 07-09-2023 End: 07-29-2023 ambulatory [facility] Start: 07-08-2023 End: 07-29-2023 ambulatory [facility] Start: 06-11-2023 End: 06-11-2023 ambulatory [facility] Start: 06-08-2023 Evaluation and manag ement of inpatient RAVEN ZUNIGA [facility] Start: 06-07-2023 Evaluation and manag ement of inpatient [facility] Start: 06-07-2023 Evaluation and manag ement of inpatient [facility] Start: 06-07-2023 Evaluation and manag ement of inpatient [facility] Start: 06-06-2023 Evaluation and manag ement of inpatient [facility] Start: 06-05-2023 Emergency department patient visit [facility] Start: 06-05-2023 Emergency department patient visit LETICIA MCCOY [facility] Start: 06-05-2023 End: 06-08-2023 Evaluation and management of inpatient BRI [facility] Start: 06-01-2023 End: 06-02-2023 ambulatory Zeeshan Carmichael MD Facility:[facility] Start: 05-27-2023 End: 05-28-2023 ambulatory MARK TAM Facility:[facility] Start: 05-10-2023 End: 05-11-2023 ambulatory MARK TAM Facility:[facility] Start: 03-11-2023 End: 03-12-2023 ambulatory MARK TAM Facility:[facility] Start: 02-11-2023 End: 02-12-2023 ambulatory MARK TAM Facility:[facility] Start: 02-24-2021 End: 02-24-2021 ambulatory CARSON ASHLEY Facility: Start: 03-23-2018 End: 03-24-2018 Patient encounter QUYEN ADAME Facility:[facility] Procedures Date Procedure Procedure Detail Performing Clinician Start: 10-25-2023 Follow-up visit JOHN PERRY Start: 09-30-2023 Cyclic citrullinated peptide antibody MARK TAM Comment on above: Result Comment: Interpretation-------- <3 Negative >=3 Positive Performed By: #### B MP, 1988-5, C34, 55358-3, 51795-1, 77659-5, 76917-2 #### [facility] ([id number]) [address] [place] [address], [address] [place] [address] Start: 09-28-2023 Follow-up visit JOHN PERRY Start: 08-24-2023 Follow-up visit JOHN PERRY Start: 08-10-2023 ALL CBC WITH AUTO DIFF Shaikh Lily BARRAGAN Work Phone: Start: 07-15-2023 Follow-up visit JOHN PERRY Start: 06-11-2023 Follow-up visit JOHN PERRY Plan of Treatment Date Care Activity Detail Author Start: 06-04-2024 Adult BMI Screening Adult BMI Screen ing [facility] Start: 06-04-2024 Tobacco Screening Tobacco Screening [facility] Start: 02-27-2024 Influenza vaccination Influenza Vacc ine [facility] Start: 10-14-2023 End: 10-14-2023 Clinical Support 10/14/2023 8:00 AM EDT Clinical Support [facility] [address] [place] [phone] [facility] Start: 10-12-2023 End: 10-12-2023 Clinical Support 10/12/2023 8:00 AM EDT Clinical Support [facility] [address] [place] [phone] [facility] Start: 10-08-2023 End: 10-08-2023 Clinical Support 10/08/2023 8:00 AM EDT Clinical Support [facility] [address] [place] [phone] [facility] Start: 10-07-2023 End: 10-07-2023 Clinical Support 10/07/2023 8:00 AM EDT Clinical [facility] [address] [facility] [place] [address] [facility] Start: 10-05-2023 End: 10-05-2023 Clinical Support 10/05/2023 8:00 AM EDT Clinical Support [facility] [address] [place] [address] [facility] Start: 10-01-2023 End: 10-01-2023 Clinical Support 10/01/2023 8:00 AM EDT Clinical Support [facility] [address] [place] [address] [facility] Start: 09-30-2023 End: 09-30-2023 Clinical Support 09/30/2023 8:00 AM EDT Clinical Support [facility] [address] [place] [address] [facility] Start: 09-28-2023 End: 09-28-2023 Clinical Support 09/28/2023 8:00 AM EDT Clinical Support [facility] [address] [place] [address] [facility] Start: 09-24-2023 End: 09-24-2023 Clinical Support 09/24/2023 8:00 AM EDT Clinical Support [facility] [address] [place] [address] [facility] Start: 09-23-2023 End: 09-23-2023 Clinical Support 09/23/2023 8:00 AM EDT Clinical Support [facility] [address] [place] [address] [facility] Start: 09-21-2023 End: 09-21-2023 Clinical Support 09/21/2023 8:00 AM EDT Clinical Support [facility] [address] [place] [address] [facility] Start: 09-17-2023 End: 09-17-2023 Clinical Support 09/17/2023 8:00 AM EDT Clinical Support [facility] [address] [place] [address] [facility] Start: 09-16-2023 End: 09-16-2023 Clinical Support 09/16/2023 8:00 AM EDT Clinical Support [facility] [address] [place] [address] [facility] Start: 09-14-2023 End: 09-14-2023 Clinical Support 09/14/2023 8:00 AM EDT Clinical Support [facility] [address] [place] [address] [facility] Start: 09-10-2023 End: 09-10-2023 Clinical Support 09/10/2023 8:00 AM EDT Clinical Support [facility] [address] [place] [address], [place] [address] [facility] Start: 09-09-2023 End: 09-09-2023 Clinical Support 09/09/2023 8:00 AM EDT Clinical Support [facility] [address] [place] [address] [facility] Start: 09-07-2023 End: 09-07-[address] [facility] Start: 09-03-2023 End: 09-03-2023 Clinical Support 09/03/2023 8:00 AM EST Clinical Support [facility] [address] [place] [address] [facility] Start: 09-02-2023 End: 09-02-2023 Clinical Support 09/02/2023 8:00 AM EST Clinical Support [facility] [address] [place] [address] [facility] Start: 08-31-2023 End: 08-31-2023 Clinical Support 08/31/2023 8:00 AM EST Clinical Support [facility] [address] [place] [address] [facility] Start: 08-27-2023 End: 08-27-2023 Clinical Support 08/27/2023 8:00 AM EST Clinical Support [facility] [address] [place] [address], [place] [address] [facility] Start: 08-26-2023 End: 08-26-2023 Clinical Support 08/26/2023 8:00 AM EST Clinical Support [facility] [address] [place] [address], [place] [address] [facility] Start: 08-24-2023 End: 08-24-2023 Clinical Support 08/24/2023 8:00 AM EST Clinical Support [facility] [address] [place] [address], [place] [address] [facility] Start: 08-20-2023 End: 08-20-2023 Clinical Support 08/20/2023 8:00 AM EST Clinical Support [facility] [address] [place] [address], [place] [address] [facility] Start: 08-19-2023 End: 08-19-2023 Clinical Support 08/19/2023 8:00 AM EST Clinical Support [facility] [address] [place] [address], [place] [address] [facility] Start: 08-17-2023 End: 08-17-2023 Clinical Support 08/17/2023 8:00 AM EST Clinical Support [facility] [address] [place] [address], [place] [address] [facility] Start: 08-13-2023 End: 08-13-2023 Clinical Support 08/13/2023 8:00 AM EST Clinical Support [facility] [address] [place] [address], [place] [address] [facility] Start: 08-12-2023 End: 08-12-2023 Clinical Support 08/12/2023 8:00 AM EST Clinical Support [facility] [address] [place] [address], [place] [address] [facility] Start: 08-10-2023 End: 08-10-2023 Clinical Support 08/10/2023 8:00 AM EST Clinical Support [facility] [address] [place] [address], [place] [address] [facility] Start: 08-09-2023 End: 08-09-2023 Patient encounter procedure 08/09/2023 4:30 PM EST Office Visit [facility] [address] [place] [address] Shaikh Bautista MD [address] [place] [address] Arrived [facility] Comment on above: Arrived Start: 08-09-2023 End: 08-09-2024 Albumin, urine, random Albumin, urine, random Lab Routine Type 2 diabetes mellitus without complication, without long-term current use of insulin ([facility]) Expected: 08/09/2023 (Approximate), Expires: 08/09/2024 [facility] Comment on above: Expected: 08/09/2023 (Approximate), Expires: 08/09/2024 Start: 08-09-2023 End: 08-09-2024 CBC W Auto Differential panel - Blood CBC and differential Lab Routine Type 2 diabetes mellitus without complication, without long-term current use of insulin ([facility]) Expected: 08/09/2023 (Approximate), Expires: 08/09/2024 [facility] Comment on above: Expected: 08/09/2023 (Approximate), Expires: 08/09/2024 Start: 08-09-2023 End: 08-09-2024 Comprehensive metabolic 2000 panel - Serum or Plasma Comprehensive metabolic panel Lab Routine Type 2 diabetes mellitus without complication, without long-term current use of insulin ([facility]) Expected: 08/09/2023 (Approximate), Expires: 08/09/2024 [facility] Comment on above: Expected: 08/09/2023 (Approximate), Expires: 08/09/2024 Start: 08-09-2023 End: 08-09-2024 Creatine kinase [Enzymatic activity/volume] in Serum or Plasma CK Lab Routine Generalized muscle ache Expected: 08/09/2023 (Approximate), Expires: 08/09/2024 [facility] Work Phone: Comment on above: Expected: 08/09/2023 (Approximate), Expires: 08/09/2024 Start: 08-09-2023 End: 08-09-2024 Creatinine [Mass/volume] in Urine Creatinine, urine, random Lab Routine Type 2 diabetes mellitus without complication, without long-term current use of insulin ([facility]) Expected: 08/09/2023 (Approximate), Expires: 08/09/2024 [facility] Comment on above: Expected: 08/09/2023 (Approximate), Expires: 08/09/2024 Start: 08-09-2023 End: 08-09-2024 Hemoglobin A1c measurement Hemoglobin A1c Lab Routine Type 2 diabetes mellitus without complication, without long-term current use of insulin (CMS/HCC) Expected: 08/09/2023 (Approximate), Expires: 08/09/2024 [facility] Comment on above: Expected: 08/09/2023 (Approximate), Expires: 08/09/2024 Start: 08-09-2023 End: 08-09-2024 Lipid 1996 panel - Serum or Plasma Lipid panel Lab Routine Hyperlipidemia, unspecified hyperlipidemia type (CMS/HCC) Expected: 08/09/2023 (Approximate), Expires: 08/09/2024 [facility] Comment on above: Expected: 08/09/2023 (Approximate), Expires: 08/09/2024 Start: 08-06-2023 End: 08-06-2023 Clinical Support 08/06/2023 8:00 AM EST Clinical Support [facility] [address] [place] [address], [place] [address] [facility] Start: 08-05-2023 End: 08-05-2023 Clinical Support 08/05/2023 8:00 AM EST [facility] [address] [place] [address], [place] [address] [facility] Start: 08-03-2023 End: 08-03-2023 Clinical Support 08/03/2023 8:00 AM EST Clinical Support [facility] [address] [place] [address], [place] [address] [facility] Start: 07-30-2023 End: 07-30-2023 Clinical Support 07/30/2023 8:00 AM EST Clinical Support [facility] [address] [facility] [address] [facility] Start: 07-29-2023 End: 07-29-2023 Clinical Support 07/29/2023 8:00 AM EST Clinical Support [facility] [address] [place] [address], [place] [address] [facility] Start: 07-27-2023 End: 07-27-2023 Clinical Support 07/27/2023 8:00 AM EST Clinical Support [facility] [address] [place] [address], [place] [address] [facility] Start: 07-23-2023 End: 07-23-2023 Clinical Support 07/23/2023 8:00 AM EST Clinical Support [facility] [address] [place] [address], [place] [address] [facility] Start: 07-22-2023 End: 07-22-2023 Clinical Support 07/22/2023 8:00 AM EST Clinical Support [facility] [address] [place] [address], [place] [address] [facility] Start: 07-20-2023 End: 07-20-2023 Clinical Support 07/20/2023 8:00 AM EST Clinical Support [facility] [address] [place] [address], [place] [address] [facility] Start: 07-16-2023 End: 07-16-2023 Clinical Support 07/16/2023 8:00 AM EST Clinical Support [facility] [address] [place] [address] [facility] Start: 07-15-2023 End: 07-15-2023 Clinical Support 07/15/2023 8:00 AM EST Clinical Support [facility] [address] [place] [address] [facility] Start: 02-26-2023 Influenza vaccination [facility] Start: 2020 Fall Risk Screening Fall Risk Screen ing [facility] Start: 12-26-2017 DTaP,Tdap and Td Vac cines (2 - Td or Tdap) DTaP,Tdap and Td Vaccines (2 - Td or Tdap) [facility] Start: 2005 Administration of varicella zoster vaccine Zoster (Shingles) Vaccine (1 of 2) [facility] Start: 1974 DTaP,Tdap and Td Vac cines (1 - Tdap) DTaP,Tdap and Td Vaccines (1 - Tdap) [facility] Start: 1974 Urine screening for protein Diabetes: Urine Protein Screening [facility] Start: 1973 Adult BMI Follow Up Plan Adult BMI F ollow Up Plan [facility] Start: 1967 Depression Screening Depression Scre ening [facility] Start: 1965 Glaucoma screening Diabetes: R etinopathy Screening [facility] Start: 1961 Pneumococcal Vaccine : 65+ Years (1 - PCV) Pneumococcal Vaccine: 65+ Years (1 - PCV) [facility] Start: 1955 Hemoglobin A1c measurement Diabetes: Hemoglobin A1C [facility] Start: 1955 Medicare Annual Well ness (AWV) Medicare Annual Wellness (AWV) [facility] Start: 1955 Medicare Annual Well ness Visit Medicare Annual Wellness Visit [facility] Start: 1955 Screening for malign ant neoplasm of colon [facility] CARDIOPULMONARY REHABILITATION CARDIOPULMONARY REHABILITATION Cardiac Services Ordered: [...] 07/27/2023 [facility] Comment on above: Ordered: 07/27/2023 CARDIOPULMONARY REHABILITATION CARDIOPULMONARY REHABILITATION Cardiac Services Ordered: 09/03/2023 [facility] Comment on above: Ordered: 09/03/2023 CARDIOPULMONARY REHABILITATION CARDIOPULMONARY REHABILITATION Cardiac Services Ordered: 09/07/2023 [facility] Comment on above: Ordered: 09/07/2023 CARDIOPULMONARY REHABILITATION CARDIOPULMONARY REHABILITATION Cardiac Services Ordered: 09/09/2023 [facility] Comment on above: Ordered: 09/09/2023 CARDIOPULMONARY REHABILITATION CARDIOPULMONARY REHABILITATION Cardiac Services Ordered: 09/10/2023 [facility] Comment on above: Ordered: 09/10/2023 CARDIOPULMONARY REHABILITATION CARDIOPULMONARY REHABILITATION Cardiac Services Ordered: 09/14/2023 [facility] Comment on above: Ordered: 09/14/2023 CARDIOPULMONARY REHABILITATION CARDIOPULMONARY REHABILITATION Cardiac Services Ordered: 09/17/2023 [facility] Comment on above: Ordered: 09/17/2023 CARDIOPULMONARY REHABILITATION CARDIOPULMONARY REHABILITATION Cardiac Services Ordered: 09/21/2023 [facility] Comment on above: Ordered: 09/21/2023 CARDIOPULMONARY REHABILITATION CARDIOPULMONARY REHABILITATION Cardiac Services Ordered: 09/24/2023 [facility] Comment on above: Ordered: 09/24/2023 CARDIOPULMONARY REHABILITATION CARDIOPULMONARY REHABILITATION Cardiac Services Ordered: 09/30/2023 [facility] Comment on above: Ordered: 09/30/2023 Payers Date Payer Category Payer Medicare [id number] 2021 Unknown [id number] 2019 Unknown [id number] 2019 Unknown [id number] 2019 Unknown [id number] 1998 Unknown [id number] 72 1959 Medicare [id number] 1959 Unknown [id number] 1955 Unknown [id number] 2.16.84 0.1.320792.3.579.2.593 1955 Unknown [id number] 2.16.8 40.1.810469.3.579.2.718 1955 Unknown [id number] 2.16.8 40.1.743836.3.579.2.718 1955 Unknown [id number] 2.16.8 40.1.117301.3.579.2.718 1955 Unknown [id number] 2.16.8 40.1.016322.3.579.2.718 1955 Unknown [id number] 2.16.8 40.1.704487.3.579.2.8 1955 Unknown [id number] 2.16.8 40.1.671369.3.579.2.718 1955 Unknown [id number] 2.16.8 40.1.488656.3.579.2.718 1955 Unknown [id number] 2.16.8 40.1.259031.3.579.2.1286 1955 Unknown [id number] 2.16.8 40.1.911191.3.579.2.1286 1955 Unknown [id number] 2.16.8 40.1.790500.3.579.2.1286 1955 Unknown [id number] 2.16.8 40.1.654812.3.579.2.1286 1955 Unknown [id number] 2.16.8 40.1.155975.3.579.2.1286 1955 Unknown [id number] 2.16.84 0.1.781587.3.579.2.1259 1955 Unknown [id number] 2.16.84 0.1.790753.3.579.2.1259 1955 Unknown [id number] 2.16.84 0.1.963255.3.579.2.1259 1955 Unknown [id number] 2.16.84 0.1.359452.3.579.2.1259 1955 Unknown [id number] 2.16.8 40.1.275578.3.579.2.1286 1955 Unknown [id number] 2.16.8 40.1.273937.3.579.2.1286 1955 Unknown [id number] 2.16.8 40.1.792561.3.579.2.1286 1955 Unknown [id number] 2.16.8 40.1.449180.3.579.2.1285 1955 Unknown [id number] 2.16.8 40.1.895847.3.579.2.1285 1955 Unknown [id number] 2.16.8 40.1.409703.3.579.2.1285 1955 Unknown [id number] 2.16.8 40.1.979007.3.579.2.1285 1955 Unknown [id number] 2.16.8 40.1.388257.3.579.2.1285 1955 Unknown [id number] 2.16.8 40.1.077806.3.579.2.1285 1955 Unknown [id number] 2.16.8 40.1.449542.3.579.2.1285 1955 Unknown [id number] 2.16.8 40.1.808674.3.579.2.1285 1955 Unknown [id number] 2.16.8 40.1.707887.3.579.2.1285 1955 Unknown [id number] 2.16.8 40.1.723089.3.579.2.1285 1955 Unknown [id number] 2.16.8 40.1.246406.3.579.2.1285 1955 Unknown [id number] 2.16.8 40.1.348459.3.579.2.1285 1955 Unknown [id number] 2.16.8 40.1.121456.3.579.2.1285 1955 Unknown [id number] 2.16.8 40.1.892642.3.579.2.1285 1955 Unknown [id number] 2.16.8 40.1.376159.3.579.2.1286 1955 Unknown [id number] 2.16.8 40.1.213788.3.579.2.1286 1955 Unknown [id number] 2.16.8 40.1.676986.3.579.2.1286 1955 Unknown [id number] 2.16.8 40.1.062402.3.579.2.128 1955 Unknown [id number] 2.16.8 40.1.423170.3.579.2.128 1955 Unknown [id number] 2.16.8 40.1.899420.3.579.2.128 1955 Unknown [id number] 2.16.8 40.1.157917.3.579.2.1285 1955 Unknown [id number] 2.16.8 40.1.650901.3.579.2.1285 1955 Unknown [id number] 2.16.8 40.1.930861.3.579.2.1285 1955 Unknown [id number] 2.16.8 40.1.519398.3.579.2.1285 1955 Unknown [id number] 2.16.8 40.1.378179.3.579.2.128 1955 Unknown [id number] 2.16.8 40.1.464362.3.579.2.128 1955 Unknown [id number] 2.16.8 40.1.851084.3.579.2.1285 1955 Unknown [id number] 2.16.8 40.1.023510.3.579.2.1285 1955 Unknown [id number] 2.16.8 40.1.872263.3.579.2.128 1955 Unknown [id number] 2.16.8 40.1.081611.3.579.2.1286 1955 Unknown [id number] 2.16.8 40.1.866341.3.579.2.1285 1955 Unknown [id number] 2.16.8 40.1.882957.3.579.2.1285 1955 Unknown [id number] 2.16.8 40.1.830340.3.579.2.1285 1955 Unknown [id number] 2.16.8 40.1.051650.3.579.2.1285 1955 Unknown [id number] 2.16.8 40.1.267815.3.579.2.1285 1955 Unknown [id number] 2.16.8 40.1.791150.3.579.2.1285 1955 Unknown [id number] 2.16.8 40.1.611047.3.579.2.1285 1955 Unknown [id number] 2.16.8 40.1.231364.3.579.2.128 1955 Unknown [id number] 2.16.8 40.1.115831.3.579.2.1285 1955 Unknown [id number] 2.16.8 40.1.412515.3.579.2.1285 1955 Unknown [id number] 2.16.8 40.1.081131.3.579.2.1285 1955 Unknown [id number] 2.16.8 40.1.391743.3.579.2.128 1955 Unknown [id number] 2.16.8 40.1.545343.3.579.2.1285 1955 Unknown [id number] 2.16.8 40.1.961670.3.579.2.1285 1955 Unknown [id number] 2.16.8 40.1.527210.3.579.2.1285 1955 Unknown [id number] 2.16.8 40.1.537867.3.579.2.1286 1955 Unknown [id number] 2.16.8 40.1.109228.3.579.2.1286 1955 Unknown [id number] 2.16.8 40.1.474386.3.579.2.1286 1955 Unknown [id number] 2.16.8 40.1.025469.3.579.2.1286 1955 Unknown [id number] 2.16.8 40.1.914389.3.579.2.1286 1955 Unknown [id number] 2.16.8 40.1.794456.3.579.2.1286 1955 Unknown [id number] 2.16.8 40.1.097968.3.579.2.128 1955 Unknown [id number] 2.16.8 40.1.364234.3.579.2.1286 1955 Unknown [id number] 2.16.8 40.1.199805.3.579.2.1286 1955 Unknown [id number] 2.16.8 40.1.000387.3.579.2.1286 1955 Unknown [id number] 2.16.8 40.1.107441.3.579.2.1286 1955 Unknown [id number] 2.16.8 40.1.868541.3.579.2.1286 1955 Unknown [id number] 2.16.8 40.1.478363.3.579.2.1286 1955 Unknown [id number] 2.16.8 40.1.883731.3.579.2.1286 Social History Date Type Detail Facility Start: 05-10-2023 End: 08-09-2023 Tobacco smoking status NHIS [facility] of [facility] History of tobacco use Cigarette Smoker P [facility] Start: 05-10-2023 End: 08-09-2023 Tobacco use and exposure Smokeless tobacco non-user [facility] Start: 06-04-2023 Alcohol intake Current drinke r of alcohol (finding) [facility] Start: 08-08-2020 End: 06-04-2023 History of Social function [facility] Start: 08-08-2020 End: 06-04-2023 Tobacco use panel [facility] Housing Instability Unknown [facility] Start: 05-10-2023 Alcohol Comment social [facility] Start: 1955 Sex Assigned At Not on file P [facility] smoking consumption unknown [facility] Start: 08-09-2023 Alcohol intake Lifetime non-d jessy (finding) [facility] NEGATED: Highlighted rowStart: NINF History of tobacco use Passive smoker [facility] Clinical Notes 06-06-2023 to 10-27-2023 Shaikh Lily MD - 08/09/2023 6:12 PM Pamela Bautista MD - 08/09/2023 6:12 PM Pamela Bautista MD - 08/09/2023 6:11 PM Pamela Bautista MD - 08/09/2023 6:10 PM EST Note Date & Type Note Facility 10-27-2023 Note Note faxed to resume cardiac pulmonary rehab per Dr. Adame's request. Faxed to [phone] [facility] 10-25-2023 Note [facility] 10-21-2023 Note [facility] 10-21-2023 Note [facility] 10-21-2023 Note [facility] 09-28-2023 Note [facility] 08-24-2023 Note [facility] 08-24-2023 Note [facility] 08-21-2023 Note [facility] 08-21-2023 Note [facility] 08-21-2023 Note Declines home health care at this time. 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 [facility] 08-16-2023 Note [facility] 08-16-2023 Note [facility] 08[facility]16-2023 Note [facility] 08-15-2023 Note [facility] 08[facility]15-2023 Note [facility] 08-15-2023 Note [facility] 08-15-2023 Note [facility] 08-14-2023 Note [facility] 08-14-2023 Note [facility] 08-13-2023 Note [facility] 08-13-2023 Note [facility] 08-13-2023 Note [facility] 08-12-2023 Note [facility] 08-12-2023 Note [facility] 08-11-2023 Note [facility] 08-09-2023 History of Present illness Narrative [...] labs. Associated Problem(s): CAD (coronary artery disease) ([facility]) S/p CABG and multiple stents placed [...] (heart failure with reduced ejection fraction) ([facility]) Hx of HFrEF - EF 20%, recent CHF exacerbation and admitted at [facility] for it. Patient on appropriate GDMT. Following [facility] cardiology. S/p AICD. Recent LEXISCAN - no evidence of ischemia. Subjective Patient ID: Giles Phillips is a 68 y.o. male who presents for Establish Care. New Patient, here to establish care. Reviewed medical, surgical and social hx. Reviewed available old records. Reviewed and updated medication list. Recent hospital admission at [facility] for acute on chronic systolic HF. Patient [...] Addressed This Visit RESOLVED: HLD (hyperlipidemia) ([facility]) Relevant Orders Lipid panel CAD (coronary artery disease) ([facility]) S/p CABG and multiple stents placed afterwards. Recent Lexiscan 06/19 - no reversible ischemia. C/w ASA, Plavix. COPD mixed type ([facility]) Diabetes ([facility]) Reports Fsbs usually in 100s. No hypoglycemia. discontinue alogliptin. C/w jardiance. Check labs. Relevant Orders CBC and differential Comprehensive metabolic panel Hemoglobin A1c Albumin, urine, random Creatinine, urine, random Essential hypertension ([facility]) - Primary Too tightly controlled and hypotensive since he was started on entresto. Denies orthostasis and denies any symptoms. I suspect his BP is low ever since he was started on entresto. discontinue imdur. C/w rest of his meds. RTC in one month. Will review home BP log and re-assess his medication regimen HFrEF (heart failure with reduced ejection fraction) ([facility]) Hx of HFrEF - EF 20%, recent CHF exacerbation and admitted at [facility] for it. Patient on appropriate GDMT. Following [facility] cardiology. S/p AICD. Recent LEXISCAN - no evidence of ischemia. Other hyperlipidemia ([facility]) On crestor 20 mg. Reports myalgias, aches [...] weeks (around 09/06/2023). documented in this encounter [facility] 07-15-2023 Note [facility] 06-11-2023 Note Device interrogation q 6 months [facility] 06-11-2023 Note Currently stable [facility] 06-11-2023 Note [facility] 06-11-2023 Note HTN well controlled 107/74 Continue all medications BMP script sent with pt [facility] 06-11-2023 Note Continue toprol [facility] 06-11-2023 Note [facility] 06-11-2023 Note Patient here for [facility] for NSTEMI and CHF. Denies chest pain, SOB, and LE edema. Review of Systems Respiratory: Positive for cough. All other systems reviewed and are negative. [facility] 06-08-2023 Note [facility] 06-08-2023 Note [facility] 06-07-2023 Note [facility] 06-07-2023 Note This report has been cancelled. [facility] 06-07-2023 Note [facility] 06-07-2023 Note [facility] 06-06-2023 Note [facility] 06-06-2023 Note [facility] Evaluation note Diagnosis Acute myocardial infarction, subendocardial infarction, initial episode of care (CMS-HCC) Acute myocardial infarction, subendocardial infarction, initial episode of care [facility] Acute myocardial infarction, subendocardial infarction, initial episode of care (CMS-HCC) Acute myocardial infarction, subendocardial infarction, initial episode of care [facility] Diagnosis Acute myocardial infarction, subendocardial infarction, initial episode of care (CMS-HCC) Acute myocardial infarction, subendocardial infarction, initial episode of care [facility] Diagnosis Acute myocardial infarction, subendocardial infarction, initial episode of care (CMS-HCC) Acute myocardial infarction, subendocardial infarction, initial episode of care [facility] Diagnosis Essential hypertension (CMS/HCC)- Primary Unspecified essential hypertension HFrEF (heart failure with reduced ejection fraction) ([facility]) Coronary artery disease involving jamul coronary artery of jamul heart without angina pectoris ([facility]) Hyperlipidemia, unspecified hyperlipidemia type ([facility]) COPD mixed type ([facility]) Type 2 diabetes mellitus without complication, without long-term current use of insulin ([facility]) Generalized muscle ache Encounter to establish care with new doctor documented in this encounter [facility] HealthcareEvaluation note* Diagnosis Acute myocardial infarction, subendocardial infarction, initial episode of care ([facility]) Acute myocardial infarction, subendocardial infarction, initial episode of care [facility] Diagnosis Acute myocardial infarction, subendocardial infarction, initial episode of care ([facility]) Acute myocardial infarction, subendocardial infarction, initial episode of care [facility] Diagnosis Acute myocardial infarction, subendocardial infarction, initial episode of care ([facility]) Acute myocardial infarction, subendocardial infarction, initial episode of care [facility] Diagnosis Acute myocardial infarction, subendocardial infarction, initial episode of care ([facility]) Acute myocardial infarction, subendocardial infarction, initial episode of care [facility] Diagnosis Acute myocardial infarction, subendocardial infarction, initial episode of care ([facility]) Acute myocardial infarction, subendocardial infarction, initial episode of care [facility] Diagnosis Acute myocardial infarction, subendocardial infarction, initial episode of care ([facility]) Acute myocardial infarction, subendocardial infarction, initial episode of care [facility] Diagnosis Acute myocardial infarction, subendocardial infarction, initial episode of care ([facility]) Acute myocardial infarction, subendocardial infarction, initial episode of care [facility] filedocumented in this encounter [facility]ructionsNot on filedocumented in this encounter [facility] Narrative* Consultation (Routine) - Pending Review Specialty Diagnoses / Procedures Referred By Lauri t Referred To Contact Cardiac Rehabilitation Diagnoses Acute myocardial infarction, subendocardial infarction, initial episode of care ([facility]) Procedures Ambulatory referral to Cardiac Rehabilitation ([facility]) Marlys Estrada MD [address] [facility], [address] [place] [address] Referral ID Status Reason Start Date Expiration Date V isits Requested Visits Authorized [id number] Pending Review 07/12/2023 07/11/2024 36 36 [facility] Summary Purpose Family History No Family [...] and content) DATE CREATED AUTHOR 04/25/2018 [facility] DATE CREATED AUTHOR AUTHOR'S ORGANIZ ATION 02/27/2021 [facility] DATE CREATED AUTHOR AUTHOR'S ORGANIZ ATION 08/18/2023 [facility] DATE CREATED AUTHOR AUTHOR'S ORGANIZ ATION 10/03/2023 [facility] DATE CREATED AUTHOR AUTHOR'S ORGANIZ ATION 11/02/2023 [facility] EPIC DATE CREATED AUTHOR AUTHOR'S ORGANIZ ATION 11/28/2023 [facility] DATE CREATED AUTHOR AUTHOR'S ORGANIZ ATION 12/06/2023 [facility] Care Teams (unrecognized sec tion and content) [employer] Panelboard Operator Relationship Specialty Start Date End Date Mark Tam DO [address] [place] [address] PCP - General Family Medicine 02/02/19 [employer] Operator Relationship Specialty Start Date End Date Mark Tam DO [address] [place] [address] PCP - General Family Medicine 02/02/19 [employer] Panelboard Operator Relationship Specialty Start Date End Date Mark Tam DO [address] [place] [address] PCP - General Family Medicine 07/21/23 [employer] Panelboard Operator Relationship Specialty Start Date End Date Mark Tam DO [address] [place] [address] PCP - General Family Medicine 07/21/23 [employer] Panelboard Operator Relationship Specialty Start Date End Date Mark Tam DO [address] [place] [address] PCP - General Family Medicine 07/21/23 [employer] Panelboard Operator Relationship Specialty Start Date End Date Shaikh Bautista MD [address] [place] [id number] PCP - General Internal Medicine 08/09/23 [employer] Panelboard Operator Relationship Specialty Start Date End Date Shaikh Bautista MD [address] [place] [phone] PCP - General Internal Medicine 08/09/23 [employer] Panelboard Operator Relationship Specialty Start Date End Date Shaikh Bautista MD [address] [phone] PCP - General Internal Medicine 08/09/23 Ethylene [employer] Panelboard Operator Relationship Specialty Start Date End Date Mark Tam DO [address] [place] [address] PCP - General Family Medicine 07/21/23 Eth[employer] Panelboard Operator Relationship Specialty Start Date End Date Mark Tam DO [address] [place] [address] PCP - General Family Medicine 07/21/23 [employer] Panelboard Operator Relationship Specialty Start Date End Date Mark Tam DO [address] [place] [address] PCP - General Family Medicine 07/21/23 Ethylene [employer] Panelboard Operator Relationship Specialty Start Date End Date Mark Tam DO [address] [place] [address] PCP - General Family Medicine 07/21/23 Ethylene [employer] Panelboard Operator Relationship Specialty Start Date End Date Mark Tam DO [address] [place] [address] PCP - General Family Medicine 07/21/23 Ethylene [employer] Panelboard Operator Relationship Specialty Start Date End Date Mark Tam DO [address] [place] [address] PCP - General Family Medicine 07/21/23 Ethylene [employer] Panelboard Operator Relationship Specialty Start Date End Date Mark Tam DO [address] [place] [address] PCP - General Family Medicine 07/21/23 Ethylene Oxide Panelboard Operator Relationship Specialty Start Date End Date Shaikh Bautista MD [address] [place] [address] PCP - General Internal Medicine 09/30/23 Reason for Visit (unrecogniz ed section and [...] BE BASED ON THE PRIMARY CLINICAL RECORDS. [facility] provides no warranty or guarantee of the accuracy or completeness of information in this document.
[2023-12-08 09:30] LABS: Basophils Absolute Auto 0.1 10^3/uL (0.0-0.1); Basophils Percent Auto 1.1 % (0.2-2.0); Eosinophils Absolute Auto 0.3 10^3/uL (0.0-0.7); Eosinophils Percent Auto 4.1 % (0.9-7.0); Hematocrit 47.4 % (42.0-54.0); Hemoglobin 15.4 g/dL (14.0-18.0); Immature Granulocytes Abs Auto 0.04 10^3/uL (0.00-0.03); Immature Granulocytes Pct Auto 0.5 % (0.0-0.5); Lymphocytes Absolute Auto 0.9 10^3/uL (1.2-3.8); Lymphocytes Percent Auto 11.7 % (20.5-60.0); Mean Corpuscular HGB Conc 32.5 g/dL (29.9-35.2); Mean Corpuscular Hemoglobin 29.9 pg (25.9-34.0); Mean Platelet Volume 9.7 fL (9.5-13.5); Monocytes Absolute Auto 0.6 10^3/uL (0.3-0.8); Monocytes Percent Auto 7.7 % (1.7-12.0); Neutrophils Absolute Auto 5.6 10^3/uL (1.4-6.5); Neutrophils Percent Auto 74.9 % (43.0-75.0); Platelet Count 247 10^3/uL (150-450); Red Blood Count 5.15 10^6/uL (4.70-6.10); Red Cell Distribution Width 14.8 % (11.0-15.0); White Blood Count 7.5 10^3/uL (4.0-11.0)
[2023-12-08 09:59] LABS: Alanine Aminotransferase 43 U/L (16-63); Albumin Globulin Ratio 0.9; Albumin Level 3.7 g/dL (3.4-5.0); Alkaline Phosphatase 96 U/L (46-116); Anion Gap 15.9; Aspartate Amino Transferase 28 U/L (15-37); BUN Creatinine Ratio 26.4; Bilirubin Total 0.5 mg/dL (0.2-1.0); Calcium 9.1 mg/dL (8.5-10.1); Carbon Dioxide 22.7 mmol/L (21.0-32.0); Chloride 101 mmol/L (98-107); Estimated GFR (African America >60 (>=60); Estimated GFR (Non-African Ame >60 (>=60); Globulin 4.3 g/dL; Glucose 199 mg/dL (74-106); Potassium 4.6 mmol/L (3.5-5.1); Sodium 135 mmol/L (136-145)
[2023-12-08 11:41] LABS: Erythrocyte Sedimentation Rate 77 mm/hr (<=20)
== END 2023-12-08 08:26 | disposition home or self-care (01) ==
LOC: LAB 08:27
PROVIDERS: PCP Internal Medicine; Visit Provider Internal Medicine Rheumatology
DX: M06.9 Rheumatoid arthritis, unspecified (principal); M19.90 Unspecified osteoarthritis, unspecified site
CPT/HCPCS: 36415; 80053; 85025; 85652

== ENCOUNTER 2024-03-20 12:53 | Outpatient (OUT) | payer MEDICARE, SELFPAY ==
[2024-03-20 14:08] LABS: Erythrocyte Sedimentation Rate 41 mm/hr (<=20)
[2024-03-20 14:20] LABS: Basophils Absolute Auto 0.1 10^3/uL (0.0-0.1); Basophils Percent Auto 0.7 % (0.2-2.0); Eosinophils Absolute Auto 0.3 10^3/uL (0.0-0.7); Eosinophils Percent Auto 3.4 % (0.9-7.0); Hematocrit 44.5 % (42.0-54.0); Hemoglobin 14.4 g/dL (14.0-18.0); Immature Granulocytes Abs Auto 0.04 10^3/uL (0.00-0.03); Immature Granulocytes Pct Auto 0.5 % (0.0-0.5); Lymphocytes Absolute Auto 0.9 10^3/uL (1.2-3.8); Lymphocytes Percent Auto 11.4 % (20.5-60.0); Mean Corpuscular HGB Conc 32.4 g/dL (29.9-35.2); Mean Corpuscular Hemoglobin 31.2 pg (25.9-34.0); Mean Corpuscular Volume 96.3 fL (80.0-94.0); Mean Platelet Volume 9.3 fL (9.5-13.5); Monocytes Absolute Auto 0.7 10^3/uL (0.3-0.8); Monocytes Percent Auto 9.7 % (1.7-12.0); Neutrophils Absolute Auto 5.7 10^3/uL (1.4-6.5); Neutrophils Percent Auto 74.3 % (43.0-75.0); Platelet Count 234 10^3/uL (150-450); Red Blood Count 4.62 10^6/uL (4.70-6.10); Red Cell Distribution Width 15.6 % (11.0-15.0); White Blood Count 7.6 10^3/uL (4.0-11.0)
[2024-03-20 14:47] LABS: Alanine Aminotransferase 39 U/L (16-63); Albumin Level 3.7 g/dL (3.4-5.0); Alkaline Phosphatase 82 U/L (46-116); Anion Gap 10.4; Aspartate Amino Transferase 25 U/L (15-37); BUN Creatinine Ratio 18.2; Bilirubin Total 0.4 mg/dL (0.2-1.0); Chloride 102 mmol/L (98-107); Estimated GFR (African America >60 (>=60); Estimated GFR (Non-African Ame 60 (>=60); Globulin 3.7 g/dL; Glucose 127 mg/dL (74-106); Potassium 4.4 mmol/L (3.5-5.1); Sodium 137 mmol/L (136-145); Total Protein 7.4 g/dL (6.4-8.2)
== END 2024-03-20 12:54 | disposition home or self-care (01) ==
LOC: LAB 12:56
PROVIDERS: PCP Nurse Practitioner; Visit Provider Internal Medicine Rheumatology
DX: M06.9 Rheumatoid arthritis, unspecified (principal); M19.90 Unspecified osteoarthritis, unspecified site; Z79.899 Other long term (current) drug therapy
CPT/HCPCS: 36415; 80053; 85025; 85652

== ENCOUNTER 2024-07-03 11:22 | Outpatient (OUT) | payer MEDICARE, SELFPAY ==
[2024-07-03 12:35] LABS: Anion Gap 14.2; BUN Creatinine Ratio 20.7; Calcium 8.9 mg/dL (8.5-10.1); Carbon Dioxide 25.3 mmol/L (21.0-32.0); Chloride 103 mmol/L (98-107); Estimated GFR (African America >60 (>=60 mL/min/1.73m^2); Estimated GFR (Non-African Ame 52 (>=60 mL/min/1.73m^2); Glucose 215 mg/dL (74-106); Potassium 4.5 mmol/L (3.5-5.1); Sodium 138 mmol/L (136-145)
== END 2024-07-03 11:23 | disposition home or self-care (01) ==
LOC: LAB 11:24
PROVIDERS: PCP Nurse Practitioner
DX: T82.7XXA Infection and inflammatory reaction due to other cardiac and vascular devices, implants and grafts, initial encounter (principal)
CPT/HCPCS: 36415; 80048

== ENCOUNTER 2024-10-12 10:05 | Outpatient (OUT) | payer MEDICARE, SELFPAY ==
--- OUTSIDE RECORDS SUMMARY | 2024-10-12 10:13 | XMS_ITS | CCD ---
Author Organization [facility] Care Team Providers Care Us Administrative Law Judge Name Role Phone DEEP, QUYEN Unavailable Unavailable DEEP, QUYEN Unavailable Unavailable HOUSE, MARK Unavailable Unavailable HOUSE, MARK Unavailable Unavailable CARSON ASHLEY Consulting Unavailable FRANCA ALVARADO Attending Unavailable JENNY, FRANCA Admitting Unavailable JENNY, FRANCA Consulting Unavailable Lily BARRAGAN, [facility] Primary Care Provider Amol BARRAGAN, Zeeshan Trammell Attending Unavailable HOUSE, [...] Attending Unavailable HOUSE, MARK P Referring Unavailable FAWWAD, AVILEZ Primary Care Unavailable FAWWAD, AVILEZ Referring Unavailable FAWWAD, AVILEZ Primary Care Unavailable FAWWAD, AVILEZ Referring Unavailable FAWWAD, AVILEZ Primary Care Unavailable HOUSE, MARK P Referring [...] Unavailable HOUSE, MARK P Referring Unavailable FAWWAD, [facility] Primary Care Unavailable HOUSE, MARK P Referring Unavailable FAWWAD, [facility] Primary Care Unavailable HOUSE, MARK P Referring Unavailable FAWWAD, [facility] Primary Care Unavailable HOUSE, MARK P Referring Unavailable FAWWAD, [facility] Primary Care Unavailable HOUSE, MARK P Referring Unavailable FAWWAD, [facility] Primary Care Unavailable HOUSE, MARK P Referring Unavailable FAWWAD, [facility] Primary Care Unavailable HOUSE, MARK P Referring Unavailable FAWWAD, [facility] Primary Care Unavailable FAWWAD, [facility] Referring Unavailable FAWWAD, [facility] Primary Care Unavailable FAWWAD, [facility] Referring Unavailable FAWWAD, [facility] Primary Care Unavailable FAWWAD, [facility] Referring Unavailable FAWWAD, [facility] Primary Care Unavailable FAWWAD, [facility] Referring Unavailable FAWWAD, [facility] Primary Care Unavailable FAWWAD, [facility] Referring Unavailable FAWWAD, [facility] Primary Care Unavailable HOUSE, MARK P Referring [...] Unavailable HOUSE, MARK P [facility] Referring Unavailable FAWWAD, [facility] Primary Care Unavailable ALI, MARLYS A Referring Unavailable FAWWAD, [facility] Primary Care Unavailable ALI, MARLYS A Referring Unavailable FAWWAD, [facility] Primary Care Unavailable ALI, MARLYS A Referring Unavailable FAWWAD, [facility] Primary Care Unavailable HOUSE, MARK P Referring Unavailable FAWWAD, [facility] Primary Care Unavailable ALI, MARLYS A Referring Unavailable FAWWAD, [facility] Primary Care Unavailable ALI, MARLYS A Referring Unavailable FAWWAD, [facility] Primary Care Unavailable ALI, MARLYS A Referring Unavailable FAWWAD, [facility] Primary Care Unavailable ALI, MARLYS A Referring Unavailable FAWWAD, [facility] Primary Care Unavailable ALI, MARLYS A Referring Unavailable FAWWAD, [facility] Primary Care Unavailable ALI, MARLYS A Referring Unavailable FAWWAD, [facility] Primary Care Unavailable ALI, MARLYS A Referring Unavailable FAWWAD, [facility] Primary Care Unavailable ALI, MARLYS A Referring Unavailable FAWWAD, [facility] Primary Care Unavailable ALI, MARLYS A Referring Unavailable FAWVTD, [facility] Primary Care Unavailable Unavailable Primary Care Provider UnavailQuyen Ramirez Primary Care Provider Natalie BARRAGAN, Maryls Burroughs Unavailable [phone] [facility] Mark Tam DO Primary Care Provider Mark Tam DO Primary Care Provider Lily BARRAGAN, [facility] Primary Care Provider [phone] Mark Tam DO Primary Care Provider LAKESHA JARRETT Referring Unavailable CHRISTOPHER FAY Attending Unavailable NAYANA DOLL Admitting Unavailable PROVIDER, UNKNOWN Primary Care Unavailable PROVIDER, UNKNOWN Primary Care Unavailable PROVIDER, UNKNOWN Primary Care Unavailable NAKHLA, SHADY Referring Unavailable PRATEEK HOWELL Attending Unavailable PROVIDER, UNKNOWN Primary Care Unavailable PROVIDER, UNKNOWN Primary Care Unavailable PROVIDER, UNKNOWN Primary Care Unavailable LAKESHA JARRETT Attending Unavailable PROVIDER, UNKNOWN Primary Care Unavailable PROVIDER, UNKNOWN Referring Unavailable KOCHAR, ARSHNEEL Referring Unavailable PROVIDER, UNKNOWN Primary Care Unavailable PRATEEK HOWELL Attending Unavailable PROVIDER, UNKNOWN Primary Care Unavailable PROVIDER, UNKNOWN Primary Care Unavailable NAKHLA, SHADY Referring Unavailable PROVIDER, UNKNOWN Primary Care Unavailable EDUARDO HOLLAND Referring Unavailable PROVIDER, UNKNOWN Primary Care Unavailable CHRISTOPHER FAY Referring Unavailable PROVIDER, UNKNOWN Primary Care Unavailable NUSRAT BAÑUELOS Referring Unavailable JOSE ALFREDO JACK Attending Unavailable PROVIDER, UNKNOWN Primary Care Unavailable NAKHLA, SHADY Referring Unavailable PROVIDER, UNKNOWN Primary Care Unavailable NAKHLA, SHADY Referring Unavailable Anel BARRAGAN, Christiano Primary Care Provider [phone] Eliza GLASS INSTALLER TECHNICIAN, Lana Unavailable [phone] Lily BARRAGAN, Avilez Unavailable MAAME THAKKAR Attending Unavailable LILY, Attending Unavailable LILY, Attending Unavailable LANA KAY Attending Unavailallegra Thakkar APRN-HOLLOW WARE MAKER, Maame Hernandez Primary Care Provider DEEP, QUYEN Attending Unavailable VIGNESH, SAMAR Attending Unavailable VIGNESH, SAMAR Attending Unavailable DEEP, QUYEN Referring Unavailable DEEP, QUYEN Referring Unavailable VIGNESH, SAMAR Attending Unavailable DEEP, QUYEN Referring Unavailable JOEL, AMANDO Referring Unavailable JOEL, AMANDO Referring Unavailable DEEP, QUYEN Attending Unavailable DEEP, QUYEN Attending Unavailable DEEP, QUYEN Referring Unavailable DEEP, QUYEN Attending Unavailable DEEP, QUYEN Admitting Unavailable DEEP, QUYEN Attending Unavailable JOEL, AMANDO Admitting Unavailable JOEL, AMANDO Attending Unavailable DEEP, QUYEN Attending Unavailable Allergies Allergy Classification Reported Allergen(s) Allergy Type Date of Onset Reaction(s) Facility (2 sources) codeine; Translations: [CODEINE PHOSPHATE] Drug Allergy 9 [facility] Repository (4 sources) Codeine; Translations: [codeine] Drug Allergy 3 [facility] Repository (20 sources) Codeine Drug Allergy 4 Dizziness, Other [facility] (4 sources) Lisinopril; Translations: [LISINOPRIL] Propensity to adverse reactions 5 [facility] (4 sources) metFORMIN; Translations: [METFORMIN] Drug Allergy 1 Diarrhea [facility] (1 source) atorvastatin; Translations: [ATORVASTATIN] Drug Allergy 3 [facility] Repository (1 source) Lovastatin; Translations: [LOVASTATIN] Drug Allergy 5 [facility] Repository (1 source) Simvastatin; Translations: [SIMVASTATIN] Drug Allergy 5 [facility] Repository Medications Current Medications Medication Drug Class(es) Dates Sig (Normalized) Sig (Original) amiodarone hydrochloride 200 mg oral tablet (19 sources) Antiarrhythmic Start: 09-17-2023 take 1 tablet by mouth once daily amiodarone (Pacerone) 200 MG tablet Take 200 mg by mouth Daily 09/23/2023 Active apixaban 5 mg oral tablet (20 sources) Factor Xa Inhibitor Start: 08-31-2023 End: 06-29-2024 take 1 tablet by mouth in the morning apixaban (Eliquis) 5 MG tablet Take 5 mg by mouth in the morning and 5 mg before bedtime. 09/29/2023 Active aspirin 81 mg delayed release oral tablet (3 sources) Platelet Aggregation Inhibitor, Nonsteroidal Anti-inflammatory Drug take 1 tablet by mouth in the morning aspirin 81 MG EC tablet Take 81 mg by mouth in the morning. 0 Active cholecalciferol 0.025 mg oral tablet (1 source) Vitamin D take 1 tablet by mouth in the morning cholecalciferol 1,000 units tablet Take 1 tablet (1,000 Units total) by mouth in the morning. Active ciprofloxacin 750 mg oral tablet (3 sources) Quinolone Antimicrobial Start: 06-27-2024 End: 07-05-2024 take 1 tablet by mouth twice daily ciprofloxacin HCl (CIPRO) 750 mg tablet Take 1 tablet by mouth two times a day for 15 doses. 15 tablet 06/27/2024 07/05/2024 Active clopidogrel 75 mg oral tablet (20 sources) P2Y12 Platelet Inhibitor take 1 tablet by mouth in the morning clopidogreL (PLAVIX) 75 mg tablet Take 1 tablet (75 mg total) by mouth in the morning. Active digoxin 0.125 mg oral tablet (4 sources) Cardiac Glycoside Start: 09-16-2023 take 0.125 mg by mouth once daily digoxin (Lanoxin) 125 MCG tablet Take 0.125 mg by mouth Daily 09/16/2023 Active Start: 09-16-2023 End: 06-13-2024 digoxin (LANOXIN) 125 mcg (0 .125 mg) tablet Take 0.125 mg by mouth. 09/16/2023 06/13/2024 Discontinued empagliflozin 10 mg oral tablet (20 sources) Sodium-Glucose Cotransporter 2 Inhibitor Start: 08-31-2023 End: 10-11-2024 take 1 tablet by mouth once daily at breakfast empagliflozin (JARDIANCE) 10 mg tablet Take 1 tablet by mouth daily with breakfast. 06/29/2024 Active take 1 tablet by mouth in the mo rning empagliflozin (JARDIANCE) 25 mg tablet tablet Take 1 tablet (25 mg total) by mouth in the morning. Active famotidine 20 mg oral tablet (3 sources) Histamine-2 Receptor Antagonist Start: 10-21-2023 take 1 tablet by mouth once daily famotidine (Pepcid) 20 MG tablet Take 20 mg by mouth Daily 10/21/2023 Active folic acid 1 mg oral tablet (15 sources) take 1 tablet by mouth once daily folic acid 1 mg tablet Take 1 mg by mouth once daily. Active furosemide 20 mg oral tablet (19 sources) Loop Diuretic Start: 08-25-2023 take 1 tablet by mouth in the morning furosemide (Lasix) 20 MG tablet Take 20 mg by mouth in the morning and 20 mg before bedtime. 08/25/2023 Active magnesium oxide 400 mg oral tablet (12 sources) Start: 06-28-2024 take 1 tablet by mouth in the morning magnesium oxide (Mag-Ox) 400 MG tablet Take 400 mg by mouth in the morning. 06/28/2024 Active Start: 06-28-2024 magnesium oxid e (MAG-OX) 400 mg (241.3 mg magnesium) tablet Take 1 tablet by mouth once daily. Patient should start on June 28, 2024. 06/28/2024 Active methotrexate 2.5 mg oral tablet (10 sources) Folate Analog Metabolic Inhibitor take 6 tablets by mouth every week methotrexate 2.5 mg chemo tablet Take 6 tablets by mouth once a week Active methotrexate 2.5 MG tablet Take 15 mg by mouth 1 (one) time per week. Active 24 hr metoprolol succinate 25 mg extended release oral tablet (20 sources) beta-Adrenergic Carlee Start: 08-30-2023 take 1 tablet by mouth once daily metoprolol succinate XL (Toprol-XL) 25 MG 24 hr tablet Indications: HFrEF (heart failure with reduced ejection fraction) (CMS/HCC) Take 1 tablet (25 mg) by mouth Daily 90 tablet 08/30/2023 Active Start: 06-16-2023 take 1 tablet by jh th every twenty-four hours in the morning metoprolol succinate XL (Toprol-XL) 50 MG 24 hr tablet Take 50 mg by mouth in the morning. 0 06/16/2023 Active take 0.5 tablet by m outh in the morning metoprolol tartrate (LOPRESSOR) 25 mg tablet Take 0.5 tablets (12.5 mg total) by mouth in the morning. Active multivitamin/iron/folic acid (CENTRUM ORAL) (1 source) multivitamin/iro n/folic acid (CENTRUM ORAL) Take by mouth. Active pantoprazole 40 mg delayed release oral tablet (16 sources) Proton Pump Inhibitor take 1 tablet by mouth in the morning pantoprazole (PROTONIX) 40 mg EC tablet Take 1 tablet (40 mg total) by mouth in the morning. Active rosuvastatin calcium 20 mg oral tablet (20 sources) HMG-CoA Reductase Inhibitor Start : 06-16 End: 06-15 take 1 tablet by mouth in the morning rosuvastatin (Crestor) 20 MG tablet Take 20 mg by mouth in the morning. 06/16/2023 Active End: 10-11-2024 take 1 tablet by mouth in the morning rosuvastatin (CRESTOR) 5 mg tablet Take 1 tablet (5 mg total) by mouth in the morning. 10/11/2024 Discontinued (Alternate therapy) sacubitril 24 mg / valsartan 26 mg oral tablet (20 sources) Angiotensin 2 Receptor Carlee Start: 06-29-2024 take 1 tablet by mouth twice daily sacubitril-valsartan (ENTRESTO) 24-26 mg tablet Take 1 tablet by mouth two times a day. 06/29/2024 Active Start: 06-16-2023 End: 06-29-2024 take 1 tablet by mouth in the morning sacubitril-valsartan (Entresto) 24-26 MG tablet Take 1 tablet by mouth in the morning and 1 tablet before bedtime. 06/16/2023 Active take 24 mg by mouth in the morning sacubitril/valsartan (ENTRESTO ORAL) Take 24 mg by mouth in the morning and 24 mg before bedtime. Active sod sulf-pot chloride-mag sulf 1.479-0.188- 0.225 gram tablet (1 source) Start: 10-11-2024 sod sulf-pot chloride-mag sulf 1.479-0.188- 0.225 gram tablet Indications: Positive colorectal cancer screening using Cologuard test Please see instructional sheet given by physicians office. 24 tablet 10/11/2024 Active spironolactone 25 mg oral tablet (20 sources) Aldosterone Antagonist Start: 06-29-2024 take 0.5 tablet by mouth once daily spironolactone (ALDACTONE) 25 mg tablet Take 0.5 tablets by mouth once daily. 06/29/2024 Active Start: 06-16-2023 End: 06-29-2024 take 1 tablet by mouth in the morning spironolactone (Aldactone) 25 MG tablet Take 25 mg by mouth in the morning. 06/16/2023 Active sulfamethoxazole 800 mg / trimethoprim 160 mg oral tablet (5 sources) Dihydrofolate Reductase Inhibitor Antibacterial, Sulfonamide Antimicrobial Start: 06-27-2024 End: 07-25-2024 take 1 tablet by mouth twice daily sulfamethoxazole-trimethoprim (BACTRIM DS) 800-160 mg per tablet Take 1 tablet by mouth two times a day for 28 days. 56 tablet 06/27/2024 07/25/2024 Active tamsulosin hydrochloride 0.4 mg oral capsule (20 sources) alpha-Adrenergic Carlee Start: 02-17-2023 End: 10-11-2024 take 1 tablet by mouth once daily tamsulosin (FLOMAX) 0.4 mg Take 1 tablet by mouth once daily. 02/17/2023 Active Start: 02-17-2023 take 1 capsule by [facility] every twenty-four hours in the morning tamsulosin (Flomax) 0.4 MG 24 hr capsule Take 0.4 mg by mouth in the morning. 02/17/2023 Active Completed/Discontinued Medications Medication Drug Class(es) Dates Sig (Normalized) Sig (Original) alogliptin 12.5 mg oral tablet (20 sources) End: 10-11-2024 alogliptin 12.5 mg tablet Take by mouth. 10/11/2024 Discontinued (Therapy completed) atenolol 25 mg oral tablet (20 sources) beta-Adrenergic Carlee End: 10-11-2024 take 1 tablet by mouth in the morning atenoloL (TENORMIN) 25 mg tablet Take 1 tablet (25 mg total) by mouth in the morning. 10/11/2024 Discontinued (Therapy completed) diclofenac sodium 75 mg delayed release oral tablet (2 sources) Nonsteroidal Anti-inflammatory Drug End: 08-09-2023 take 1 tablet by mouth in the morning diclofenac (Voltaren) 75 MG EC tablet Take 75 mg by mouth in the morning and 75 mg before bedtime. Do not crush, chew, or split.. 0 08/09/2023 Discontinued (Side effects) doxycycline hyclate 100 mg oral tablet (6 sources) Tetracycline-class Drug Start: 06-06-2024 doxycycline (VIBRA-TABS) 100 mg tablet Take 100 mg by mouth. 06/06/2024 Suspended etodolac 400 mg oral tablet (3 sources) Nonsteroidal Anti-inflammatory Drug Start: 07-28-2023 End: 09-18-2024 take 1 tablet by mouth in the morning etodolac (Lodine) 400 MG tablet Take 400 mg by mouth in the morning and 400 mg before bedtime. 07/28/2023 09/18/2024 Discontinued (Therapy completed) 24 hr isosorbide mononitrate 30 mg extended release oral tablet (2 sources) Nitrate Vasodilator Start: 02-16-2023 End: 08-09-2023 take 1 tablet by mouth in the morning, then take 1 tablet by mouth every twenty-four hours isosorbide mononitrate ER (Imdur) 30 MG 24 hr tablet Take 30 mg by mouth in the morning. 0 02/16/2023 08/09/2023 Discontinued (Therapy completed) isosorbide dinitrate 5 mg oral tablet (20 sources) Nitrate Vasodilator End: 10-11-2024 take 1 tablet by mouth three times daily at mealtime isosorbide dinitrate (ISORDIL) 5 mg tablet Take 1 tablet (5 mg total) by mouth 3 (three) times a day with meals. 10/11/2024 Discontinued (Therapy completed) losartan potassium 25 mg oral tablet (20 sources) Angiotensin 2 Receptor Carlee End: 10-11-2024 take 1 tablet by mouth in the morning losartan (COZAAR) 25 mg tablet Take 1 tablet (25 mg total) by mouth in the morning. 10/11/2024 Discontinued (Therapy completed) End: 06-13-2024 take 0.5 tablet by mouth once daily losartan (COZAAR) 50 mg tablet Take 0.5 tablets every day by oral route. 06/13/2024 Discontinued sucralfate 1000 mg oral tablet (3 sources) Aluminum Complex Start: 10-21-2023 End: 09-18-2024 sucralfate (Carafate) 1 g tablet 10/21/2023 09/18/2024 Discontinued (Therapy completed) Problems Active Problems Problem Classification Problem Date Documented Da te Episodic/Chronic Acute myocardial infarction (14 sources) Non-ST elevation (NSTEMI) myocardial infarction; Translations: [Acute subendocardial infarction] Onset: 4 07-13-2023 Chronic Administrative/social admission (14 sources) Patient encounter status; Translations: [Persons encountering health services in other specified circumstances] Onset: 4 Resolved: 5 08-09-2023 Episodic Anxiety disorders (16 sources) Anxiety; Translations: [Anxiety disorder, unspecified] Onset: 4 06-13-2024 Chronic Cardiac dysrhythmias (20 sources) Ventricular tachycardia; Translations: [Paroxysmal ventricular tachycardia] Onset: 1 Resolved: 5 08-09-2023 Chronic Cardiac dysrhythmias (2 sources) Palpitations; Translations: [Palpitations] Onset: 4 05-29-2024 Episodic Chronic obstructive pulmonary disease and bronchiectasis (20 sources) Chronic obstructive lung disease; Translations: [Chronic obstructive pulmonary disease, unspecified] Onset: 3 08-09-2023 Chronic Conduction disorders (20 sources) Encounter for adjustment and management of automatic implantable cardiac defibrillator; Translations: [Automatic implantable cardiac defibrillator in situ] Onset: 2 08-09-2023 Chronic Congestive heart failure; nonhypertensive (20 sources) Heart failure with reduced ejection fraction; Translations: [Unspecified systolic (congestive) heart failure] Onset: 4 Resolved: 5 08-09-2023 Chronic Coronary atherosclerosis and other heart disease (20 sources) Atherosclerotic heart disease of ute coronary artery without angina pectoris; Translations: [Coronary arteriosclerosis] Onset: 8 Resolved: 5 08-09-2023 Chronic Coronary atherosclerosis and other heart disease (2 sources) Presence of coronary angioplasty implant and graft; Translations: [Presence of aortocoronary bypass graft] Onset: 8 Episodic Diabetes mellitus without complication (20 sources) Type 2 diabetes mellitus without complication; Translations: [Type 2 diabetes mellitus without complications] Onset: 4 08-09-2023 Chronic Disorders of lipid metabolism (20 sources) Hyperlipidemia, unspecified; Translations: [Hyperlipidemia] Onset: 1 Resolved: 5 08-09-2023 Chronic Esophageal disorders (8 sources) Gastroesophageal reflux disease; Translations: [Gastro-esophageal reflux disease without esophagitis] Onset: 3 08-09-2023 Chronic Essential hypertension (20 sources) Essential (primary) hypertension; Translations: [Essential hypertension] Onset: 1 08-09-2023 Chronic Hyperplasia of prostate (20 sources) Benign prostatic hyperplasia; Translations: [Benign prostatic hyperplasia without lower urinary tract symptoms] Onset: 4 06-13-2024 Chronic Nausea and vomiting (1 source) Nausea and vomiting Onset: 4 Episodic Osteoarthritis (11 sources) Osteoarthritis; Translations: [Unspecified osteoarthritis, unspecified site] Onset: 3 08-09-2023 Chronic Other aftercare (1 source) director long term care (current) use of aspirin; Translations: [LONG-TERM (CURRENT) USE OF ASPIRIN] Onset: 8 Episodic Other aftercare (1 source) director long term care (current) use of antithrombotics/antipl atelets; Translations: [SALES ACCOUNT COORDINATOR (CURRENT) USE OF ANTITHROMBOTICS/ANTIPL ATELETS] Onset: 8 Episodic Other bone disease and musculoskeletal deformities (19 sources) History of amputation of left leg through femur; Translations: [Acquired absence of left leg above knee] Onset: 4 06-13-2024 Chronic Other connective tissue disease (2 sources) Muscle pain; Translations: [Myalgia, unspecified site] 08-09-2023 Episodic Other connective tissue disease (3 sources) Bilateral plantar fasciitis; Translations: [Plantar fascial fibromatosis] Onset: 5 09-18-2024 Episodic Other connective tissue disease (4 sources) Pain in right lower limb; Translations: [Pain in right leg] Onset: 5 09-18-2024 Episodic Other gastrointestinal disorders (7 sources) Stool DNA-based colorectal cancer screening positive; Translations: [Other fecal abnormalities] Onset: 5 09-18-2024 Episodic Other lower respiratory disease (3 sources) Cough; Translations: [COUGH] Onset: 1 Episodic Other nervous system disorders (8 sources) Phantom limb syndrome with pain; Translations: [Phantom limb syndrome with pain] Onset: 3 08-09-2023 Chronic Other non-traumatic joint disorders (1 source) Pain in left shoulder; Translations: [Pain in left shoulder] Onset: 4 Episodic Meli-; endo-; and myocarditis; cardiomyopathy (3 sources) Dilated cardiomyopathy; Translations: [DILATED CARDIOMYOPATHY] Onset: 8 Chronic Residual codes; unclassified (12 sources) H/O: atrial fibrillation; Translations: [Other specified postprocedural states] Onset: 4 06-22-2024 Episodic Rheumatoid arthritis and related disease (12 sources) Rheumatoid arthritis, unspecified; Translations: [Rheumatoid arthritis] Onset: 1 Resolved: 4 08-09-2023 Chronic Screening or history of mental health and substance abuse (2 sources) Personal history of nicotine dependence; Translations: [PERSONAL HISTORY OF NICOTINE DEPENDENCE] Onset: 8 Episodic Unclassified (2 sources) Unknown / UNK(Unknown) Onset: 8 Viral infection (1 source) COVID-19; Translations: [COVID-19] Onset: Past or Other Problems Problem Classification Problem Date Documented Da te Episodic/Chronic Complication of device; implant or graft (20 sources) Infection associated with cardiac implant; Translations: [Infection and inflammatory reaction due to other cardiac and vascular devices, implants and grafts, initial encounter] Onset: 05-12-2024 06-13-2024 Episodic Mood disorders (3 sources) Mood disorders Onset: 11-01-2023 11-01-2023 Open wounds of extremities (6 sources) Amputated left lower limb above knee; Translations: [Complete traumatic amputation at level between left hip and knee, initial encounter] Onset: 08-09-2023 Resolved: 09-18-2024 08-09-2023 Chronic Other aftercare (13 sources) Long-term current use of anticoagulant; Translations: [director long term care (current) use of anticoagulants] Onset: 11-01-2023 06-23-2024 Episodic Other bone disease and musculoskeletal deformities (6 sources) History of amputation of lower limb above knee; Translations: [Acquired absence of unspecified leg above knee] Onset: 03-17-2018 Resolved: 09-18-2024 08-09-2023 Chronic Other connective tissue disease (6 sources) Pain in right foot; Translations: [Pain in right foot] Onset: 08-09-2023 08-09-2023 Episodic Other non-traumatic joint disorders (7 sources) Pain in right shoulder; Translations: [Pain in joint, shoulder region] Onset: 07-21-2023 08-09-2023 Episodic Otitis media and related conditions (3 sources) Acute suppurative otitis media without spontaneous rupture of ear drum; Translations: [Acute suppurative otitis media without spontaneous rupture of ear drum, left ear] Onset: 09-29-2023 Resolved: 09-18-2024 09-18-2024 Episodic Results Test Name Value Interpretation Reference Range Facility Office Visiton 10-09-2024 Follow-up visit [id number] Judson Phillips 1955 M Date Provider Department Center 10/09/2024 [id number] [facility] Family History Problem Relation Age of Onset Coronary artery disease Mother Coronary artery disease Father Family Status - Relation Status Age at Mother Father Level of Service:[address] [place] OFFICE/OUTPATIENT ESTABLISHED MOD MDM 30 MIN Reason for Visit and Comments: 6 month follow up [Other] Congestive Heart Failure [127] Hypertension [244614] Cardiomyopathy [104] Coronary Artery Disease [187] Hyperlipidemia [182] Atrial Fibrillation [80] Normal [facility] HbA1c (Bld) [Mass fraction]o n 09-18-2024 Interpretation and review of laboratory results Abnormal [facility] Laboratory - Hematology and Cell countson 09-18-2024 HbA1c (Bld) [Mass fraction] 7.80 % [facility] Healthcare Office Visiton 09-07-2024 Follow-up visit [id number] Judson Phillips E 1955 M Date Provider Department Center 09/07/2024 [facility] CARD DE HeartVAS Family History Problem Relation Age of Onset Coronary artery disease Mother Coronary artery disease Father Family Status - Relation Status Age at Mother Father Level of Service:69366 [place] OFFICE/OUTPATIENT ESTABLISHED MOD MDM 30 MIN Normal [facility] 36on 08-30-2024 36 Pt called to sandra lexie with Dr Jackson he was advised to call back on a weekly or biweekly basis. Pt was scheduled for device check 08/31 at 7:30 but states that when he lays on his right side he can feel his stomach jump with the pacemaker. Normal [facility] CNPNon 07-31-2024 CNPN Normal [facility] CNPNon 07-14-2024 CNPN Normal [facility] CNPNon 07-06-2024 CNPN Normal [facility] CNPNon 07-05-2024 CNPN Normal [facility] CNPNon 07-03-2024 CNPN Normal [facility] CNPTOUTREACHon 06-29-2024 CNPTOUTREACH Normal [facility] CASE MANAGEMon 06-27-2024 CASE MANAGEM Normal [facility] CBC panel Auto (Bld)on 06-27 Erythrocyte distribution width (RBC) [Ratio] 15.0 % Normal 11.5-15.0 [facility] Comment on above: Order Comment: Speci men Type: BLOOD SPECIMENOrdering Facility: [facility] Address: [address] [place] [address] Performed By: #### 5 8410-2 ####[facility] LABCLIA [id number] [place] [address] [place] Hematocrit (Bld) [Volume fraction] 38.6 % Low 39.0-51.0 [facility] Comment on above: Order Comment: Speci men Type: BLOOD SPECIMENOrdering Facility: [facility] Address: [address] [place] [address] Performed By: #### 5 8410-2 ####[facility] LABIA [id number] [place] [address] [place] Hemoglobin (Bld) [Mass/Vol] 12.6 g/dL Low 13.0-17.0 [facility] Comment on above: Order Comment: Speci men Type: BLOOD SPECIMENOrdering Facility: [facility] Address: [address] [place] [address] Performed By: #### 5 8410-2 ####[facility] LABIA [id number] [place] [address] [place] MCH (RBC) [Entitic mass] 31.9 pg Normal 26.0-34.0 [facility] Comment on above: Order Comment: Speci men Type: BLOOD SPECIMENOrdering Facility: [facility] Address: [address] [place] [address] Performed By: #### 5 8410-2 ####[facility] LABIA [id number] [place] [address] [place] MCHC (RBC) [Mass/Vol] 32.6 g/dL Normal 30.5-36.0 [facility] Comment on above: Order Comment: Speci men Type: BLOOD SPECIMENOrdering Facility: [facility] Address: [address] [place] [address] Performed By: #### 5 8410-2 ####[facility] LABIA [id number] [place] [address] [place] MCV (RBC) [Entitic vol] 97.7 fL Normal 80.0-100.0 [facility] Comment on above: Order Comment: Speci men Type: BLOOD SPECIMENOrdering Facility: [facility] Address: [address] [place] [address] Performed By: #### 5 8410-2 ####[facility] LABCLIA [id number] [place] [address] [place] Nucleated RBC (Bld) [#/Vol] 10*3/uL Normal <0.01 [facility] Comment on above: Order Comment: Speci men Type: BLOOD SPECIMENOrdering Facility: [facility] Address: [address] [place] [address] Performed By: #### 5 8410-2 ####[facility] LABCLIA [id number] [place] [address] [place] Platelet mean volume (Bld) [Entitic vol] 9.3 fL Normal 9.0-12.7 [facility] Comment on above: Order Comment: Speci men Type: BLOOD SPECIMENOrdering Facility: [facility] Address: [address] [place] [address] Performed By: #### 5 8410-2 ####[facility] LABIA [id number] [place] [address] [place] Platelets (Bld) [#/Vol] 249 10*3/uL Normal 150-400 [facility] Comment on above: Order Comment: Speci men Type: BLOOD SPECIMENOrdering Facility: [facility] Address: [address] [place] [address] Performed By: #### 5 8410-2 ####[facility] LABCLIA [id number] [place] [address] [place] RBC (Bld) [#/Vol] 3.95 10*6/uL Low 4.20-6.00 [facility] Comment on above: Order Comment: Speci men Type: BLOOD SPECIMENOrdering Facility: [facility] Address: [address] [place] [address] Performed By: #### 5 8410-2 ####[facility] LABCLIA [id number] [place] [address] [place] WBC (Bld) [#/Vol] 7.25 10*3/uL Normal 3.70-11.00 [facility] Comment on above: Order Comment: Speci men Type: BLOOD SPECIMENOrdering Facility: [facility] Address: [address] [place] [address] Performed By: #### 5 8410-2 ####[facility] LABCLIA [id number] [place] [address] [place] CNDSon 06-27-2024 CNDS Normal [facility] CONSULT PROGon 06-27-2024 CONSULT PROG Normal [facility] CONSULT PROG Normal [facility] CONSULT PROG Normal [facility] Comprehensive metabolic 2000 panelon 06-27-2024 Albumin [Mass/Vol] 3.6 g/dL Low 3.9-4.9 [facility] Comment on above: Order Comment: Speci men Type: BLOOD SPECIMENOrdering Facility: [facility] Address: [address] [place] [address] Performed By: #### 2 4323-8 ####[facility] LABCLIA [id number] [place] [address] [place] ALP [Catalytic activity/Vol] 94 U/L Normal 38-113 [facility] Comment on above: Order Comment: Speci men Type: BLOOD SPECIMENOrdering Facility: [facility] Address: [address] [place] [address] Performed By: #### 2 4323-8 ####[facility] LABCLIA [id number] [place] [address] [place] ALT [Catalytic activity/Vol] 44 U/L Normal 10-54 [facility] Comment on above: Order Comment: Speci men Type: BLOOD SPECIMENOrdering Facility: [facility] Address: [address] [place] [id number] Performed By: #### 2 4323-8 ####[facility] LABCLIA [id number] [address] [address] [place] Anion gap [Moles/Vol] 16 mmol/L High 8-15 [facility] Comment on above: Order Comment: Speci men Type: BLOOD SPECIMENOrdering Facility: [facility] Address: [address] [place] [address] Performed By: #### 2 4323-8 ####[facility] LABCLIA [id number] [place] [address] [place] AST [Catalytic activity/Vol] 29 U/L Normal 14-40 [facility] Comment on above: Order Comment: Speci men Type: BLOOD SPECIMENOrdering Facility: [facility] Address: [address] [place] [address] Performed By: #### 2 4323-8 ####[facility] LABCLIA [id number] [place] [address] [place] Bilirubin [Mass/Vol] 0.3 mg/dL Normal 0.2-1.3 [facility] Comment on above: Order Comment: Speci men Type: BLOOD SPECIMENOrdering Facility: [facility] Address: [address] [place], [place] [address] Performed By: #### 2 4323-8 ####[facility] LABCLIA [id number] [place] [id number] [place] Calcium [Mass/Vol] 8.8 mg/dL Normal 8.5-10.2 [facility] Comment on above: Order Comment: Speci men Type: BLOOD SPECIMENOrdering Facility: [facility] Address: [address] [place], [place] [address] Performed By: #### 2 4323-8 ####[facility] LABCLIA [id number] [place] [address] [place] Chloride [Moles/Vol] 101 mmol/L Normal 98-107 [facility] Comment on above: Order Comment: Speci men Type: BLOOD SPECIMENOrdering Facility: [facility] Address: [address] [place] [address] Performed By: #### 2 4323-8 ####[facility] LABCLIA [id number] [place] [address] [place] CO2 [Moles/Vol] 16 mmol/L Low 22-30 [facility] Comment on above: Order Comment: Speci men Type: BLOOD SPECIMENOrdering Facility: [facility] Address: [address] [place] [address] Performed By: #### 2 4323-8 ####[facility] LABCLIA [id number] [place] [address] [place] Creatinine [Mass/Vol] 1.05 mg/dL Normal 0.73-1.22 [facility] Comment on above: Order Comment: Speci men Type: BLOOD SPECIMENOrdering Facility: [facility] Address: [address] [place] [address] Performed By: #### 2 4323-8 ####[facility] LABIA [id number] [place] [address] [place] Creatinine and Glomerular filtration rate.predicted panel (S/P/Bld) 77 mL/min/1.73m??? Normal >=60 [facility] Comment on above: Order Comment: Speci men Type: BLOOD SPECIMENOrdering Facility: [facility] Address: [address] [place] [address] Result Comment: Elvia mated Glomerular Filtration Rate (eGFR) is calculated using the 2020 CKD-EPI creatinine equation. This equation utilizes serum creatinine, sex, and age as parameters. The creatinine assay has traceable calibration to isotope dilution-mass spectrometry. Refer to KDIGO guidelines for clinical interpretation. In patients with unstable renal function, e.g. those with acute kidney injury, the eGFR may not accurately reflect actual GFR. Performed By: #### 2 4323-8 ####[facility] LABIA [id number] [place] [address] [place] Glucose [Mass/Vol] 150 mg/dL High 74-99 [facility] Comment on above: Order Comment: Speci men Type: BLOOD SPECIMENOrdering Facility: [facility] Address: [address] [place] [address] Result Comment: The [place] [employer] (ADA) provides guidance for cutoff values for fasting glucose and random glucose. The ADA defines fasting as no caloric intake for at least 8 hours. Fasting plasma glucose results between 100 to 125 mg/dL indicate increased risk for diabetes (prediabetes).Fasting plasma glucose results greater than or equal to 126 mg/dL meet the criteria for diagnosis of diabetes. In the absence of unequivocal hyperglycemia, results should be confirmed by repeat testing. In a patient with classic symptoms of hyperglycemia or hyperglycemic crisis, random plasma glucose results greater than or equal to 200 mg/dL meet the criteria for diagnosis of diabetes.Reference: Standards of Medical Care in Diabetes 2016, [place] [employer]. Diabetes Care. 2016.39(Suppl 1). Performed By: #### 2 4323-8 ####[facility] LABIA [id number] [place] [address] [place] Potassium [Moles/Vol] 4.5 mmol/L Normal 3.7-5.1 [facility] Comment on above: Order Comment: Rubiai men Type: BLOOD SPECIMENOrdering Facility: [facility] Address: [address] [place] [address] Performed By: #### 2 4323-8 ####[facility] LABIA [id number] [place] [address] [place] Protein [Mass/Vol] 7.0 g/dL Normal 6.3-8.0 [facility] Comment on above: Order Comment: Rubiai men Type: BLOOD SPECIMENOrdering Facility: [facility] Address: [address] [place] [address] Performed By: #### 2 4323-8 ####[facility] LABCLIA [id number] [address] [address] [place] Sodium [Moles/Vol] 133 mmol/L Low 136-144 [facility] Comment on above: Order Comment: Speci men Type: BLOOD SPECIMENOrdering Facility: [facility] Address: [address] [place] [address] Performed By: #### 2 4323-8 ####[facility] LABCLIA [id number] [place] [address] [place] Urea nitrogen [Mass/Vol] 17 mg/dL Normal 9-24 [facility] Comment on above: Order Comment: Speci men Type: BLOOD SPECIMENOrdering Facility: [facility] Address: [address] [place] [address] Performed By: #### 2 4323-8 ####[facility] LABCLIA [id number] [place] [address] [place] NUTRITIONon 06-27-2024 NUTRITION Normal [facility] Basic metabolic 2000 panelon 06-26-2024 Anion gap [Moles/Vol] 14 mmol/L Normal 8-15 [facility] Comment on above: Order Comment: Speci men Type: BLOOD SPECIMENOrdering Facility: [facility] Address: [address] [place] [address] Performed By: #### 2 4321-2, ####[facility] LABCLIA [id number] [address] [address] [place] Calcium [Mass/Vol] 9.0 mg/dL Normal 8.5-10.2 [facility] Comment on above: Order Comment: Speci men Type: BLOOD SPECIMENOrdering Facility: [facility] Address: [address] [place] [address] Performed By: #### 2 4321-2, ####[facility] LABCLIA [id number] [place] [address] [place] Chloride [Moles/Vol] 103 mmol/L Normal 98-107 [facility] Comment on above: Order Comment: Speci men Type: BLOOD SPECIMENOrdering Facility: [facility] Address: [address] [place] [address] Performed By: #### 2 4321-2, 91044-8 ####[facility] LABCLIA [id number] [place] [address] [place] CO2 [Moles/Vol] 20 mmol/L Low 22-30 [facility] Comment on above: Order Comment: Speci men Type: BLOOD SPECIMENOrdering Facility: [facility] Address: [address] [place] [address] Performed By: #### 2 4321-2, ####[facility] LABIA [id number] [place] [address] [place] Creatinine [Mass/Vol] 1.00 mg/dL Normal 0.73-1.22 [facility] Comment on above: Order Comment: Speci men Type: BLOOD SPECIMENOrdering Facility: [facility] Address: [address] [place] [address] Performed By: #### 2 4321-2, 82017-1 ####[facility] LABIA [id number] [place] [address] [place] Creatinine and Glomerular filtration rate.predicted panel (S/P/Bld) 81 mL/min/1.73m??? Normal >=60 [facility] Comment on above: Order Comment: Speci men Type: BLOOD SPECIMENOrdering Facility: [facility] Address: [address] [place] [address] Result Comment: Elvia mated Glomerular Filtration Rate (eGFR) is calculated using the 2020 CKD-EPI creatinine equation. This equation utilizes serum creatinine, sex, and age as parameters. The creatinine assay has traceable calibration to isotope dilution-mass spectrometry. Refer to KDIGO guidelines for clinical interpretation. In patients with unstable renal function, e.g. those with acute kidney injury, the eGFR may not accurately reflect actual GFR. Performed By: #### 2 4320-07, ####[facility] LABCLIA [id number] [address] [address] [place] Glucose [Mass/Vol] 163 mg/dL High 74-99 [facility] Comment on above: Order Comment: Speci men Type: BLOOD SPECIMENOrdering Facility: [facility] Address: [address] [place] [address] Result Comment: The [place] Diabetes Association (ADA) provides guidance for cutoff values for fasting glucose and random glucose. The ADA defines fasting as no caloric intake for at least 8 hours. Fasting plasma glucose results between 100 to 125 mg/dL indicate increased risk for diabetes (prediabetes).Fasting plasma glucose results greater than or equal to 126 mg/dL meet the criteria for diagnosis of diabetes. In the absence of unequivocal hyperglycemia, results should be confirmed by repeat testing. In a patient with classic symptoms of hyperglycemia or hyperglycemic crisis, random plasma glucose results greater than or equal to 200 mg/dL meet the criteria for diagnosis of diabetes.Reference: Standards of Medical Care in Diabetes 2016, [place] [employer]. Diabetes Care. 2016.39(Suppl 1). Performed By: #### 2 4320-07, ####[facility] LABCLIA [id number] [address] [address] [place] Potassium [Moles/Vol] 4.1 mmol/L Normal 3.7-5.1 [facility] Comment on above: Order Comment: Rubiai men Type: BLOOD SPECIMENOrdering Facility: [facility] Address: [address] [place] [address] Performed By: #### 2 4320-07, ####[facility] LABCLIA [id number] [address] [address] [place] Sodium [Moles/Vol] 137 mmol/L Normal 136-144 [facility] Comment on above: Order Comment: Speci men Type: BLOOD SPECIMENOrdering Facility: [facility] Address: [address] [place], [place] [address] Performed By: #### 2 4321-2, ####[facility] LABCLIA [id number] [place] [address] [place] Urea nitrogen [Mass/Vol] 16 mg/dL Normal 9-24 [facility] Comment on above: Order Comment: Speci men Type: BLOOD SPECIMENOrdering Facility: [facility] Address: [address] [place] [address] Performed By: #### 2 4321-2, ####[facility] LABIA [id number] [place] [address] [place] CASE MANAGEMon 06-26-2024 CASE MANAGEM Normal [facility] CONSULT PROGon 06-26-2024 CONSULT PROG Normal [facility] CONSULT PROG Normal [facility] ECG COMPLETEon 06-26-2024 ECG COMPLETE Normal [facility] Magnesium SerPl-mCncon 06-26 Magnesium [Mass/Vol] 2.4 mg/dL High 1.7-2.3 [facility] Comment on above: Order Comment: Speci men Type: BLOOD SPECIMENOrdering Facility: [facility] Address: [address] [place] [address] Performed By: #### 2 4321-2, ####[facility] LABCLIA [id number] [place] [id number] [place] THERAPY NTon 06-26-2024 THERAPY NT Normal [facility] Vancomycin [place] SerPl-mCncon 06-26-2024 Vancomycin random [Mass/Vol] 19.1 ug/mL Normal 10.0-20.0 [facility] Comment on above: Order Comment: Speci men Type: BLOOD SPECIMENOrdering Facility: [facility] Address: [address] [place] [address] Result Comment: Refe rence ranges and high/low indicator flags are provided as general guidelines only. The treating physician must determine appropriate target levels/dosing based on the specific clinical situation. Performed By: #### 4 091-5 ####[facility] LABCLIA [id number] [place] [address] [place] Basic metabolic 2000 panelon 06-25-2024 Anion gap [Moles/Vol] 13 mmol/L Normal 8-15 [facility] Comment on above: Order Comment: Speci men Type: BLOOD SPECIMENOrdering Facility: [facility] Address: [address] [place] [address] Performed By: #### 2 4321-2 ####[facility] LABCLIA [id number] [place] [address] [place] Calcium [Mass/Vol] 9.0 mg/dL Normal 8.5-10.2 [facility] Comment on above: Order Comment: Speci men Type: BLOOD SPECIMENOrdering Facility: [facility] Address: [address] [place] [address] Performed By: #### 2 4321-2 ####[facility] LABCLIA [id number] [place] [address] [place] Chloride [Moles/Vol] 103 mmol/L Normal 98-107 [facility] Comment on above: Order Comment: Speci men Type: BLOOD SPECIMENOrdering Facility: [facility] Address: [address] [place] [address] Performed By: #### 2 4321-2 ####[facility] LABCLIA [id number] [facility] [place] [id number] [place] CO2 [Moles/Vol] 20 mmol/L Low 22-30 [facility] Comment on above: Order Comment: Speci men Type: BLOOD SPECIMENOrdering Facility: [facility] Address: [address] [place] [address] Performed By: #### 2 4321-2 ####[facility] LABCLIA [id number] [place] [address] [place] Creatinine [Mass/Vol] 1.00 mg/dL Normal 0.73-1.22 [facility] Comment on above: Order Comment: Wes guerin Type: BLOOD SPECIMENOrdering Facility: [facility] Address: [address] [place] [address] Performed By: #### 2 4321-2 ####[facility] LABIA [id number] [place] [address] [facility] [place] Creatinine and Glomerular filtration rate.predicted panel (S/P/Bld) 81 mL/min/1.73m??? Normal >=60 [facility] Comment on above: Order Comment: Wes guerin Type: BLOOD SPECIMENOrdering Facility: [facility] Address: [address] [place] [address] Result Comment: Elvia mated Glomerular Filtration Rate (eGFR) is calculated using the 2020 CKD-EPI creatinine equation. This equation utilizes serum creatinine, sex, and age as parameters. The creatinine assay has traceable calibration to isotope dilution-mass spectrometry. Refer to KDIGO guidelines for clinical interpretation. In patients with unstable renal function, e.g. those with acute kidney injury, the eGFR may not accurately reflect actual GFR. Performed By: #### 2 4321-2 ####[facility] LABIA [id number] [place] [address] [place] Glucose [Mass/Vol] 181 mg/dL High 74-99 [facility] Comment on above: Order Comment: Wes guerin Type: BLOOD SPECIMENOrdering Facility: [facility] Address: [address] [place] [address] Result Comment: The [place] [employer] (ADA) provides guidance for cutoff values for fasting glucose and random glucose. The ADA defines fasting as no caloric intake for at least 8 hours. Fasting plasma glucose results between 100 to 125 mg/dL indicate increased risk for diabetes (prediabetes).Fasting plasma glucose results greater than or equal to 126 mg/dL meet the criteria for diagnosis of diabetes. In the absence of unequivocal hyperglycemia, results should be confirmed by repeat testing. In a patient with classic symptoms of hyperglycemia or hyperglycemic crisis, random plasma glucose results greater than or equal to 200 mg/dL meet the criteria for diagnosis of diabetes.Reference: Standards of Medical Care in Diabetes 2016, [place] [employer]. Diabetes Care. 2016.39(Suppl 1). Performed By: #### 2 4321-2 ####[facility] LABCLIA [id number] [place] [address] [place] Potassium [Moles/Vol] 3.9 mmol/L Normal 3.7-5.1 [facility] Comment on above: Order Comment: Speci men Type: BLOOD SPECIMENOrdering Facility: [facility] Address: [address] [place] [address] Performed By: #### 2 4321-2 ####[facility] LABIA [id number] [place] [address] [place] Sodium [Moles/Vol] 136 mmol/L Normal 136-144 [facility] Comment on above: Order Comment: Speci men Type: BLOOD SPECIMENOrdering Facility: [facility] Address: [address] [place] [address] Performed By: #### 2 4321-2 ####[facility] LABIA [id number] [place] [address] [place] Urea nitrogen [Mass/Vol] 17 mg/dL Normal 9-24 [facility] Comment on above: Order Comment: Speci men Type: BLOOD SPECIMENOrdering Facility: [facility] Address: [address] [place] [address] Performed By: #### 2 4321-2 ####[facility] LABIA [id number] [place] [address] [place] CBC W Auto Differential pane l (Bld)on 06-25-2024 Basophils (Bld) [#/Vol] 0.04 10*3/uL Normal <0.11 [facility] Comment on above: Order Comment: Speci men Type: BLOOD SPECIMENOrdering Facility: [facility] Address: [address] [place] [address] Performed By: #### 5 7021-8 ####[facility] LABCLIA [id number] [place] [address] [place] Basophils/100 WBC (Bld) 0.6 % Normal [facility] Comment on above: Order Comment: Speci men Type: BLOOD SPECIMENOrdering Facility: [facility] Address: [address] [place] [address] Performed By: #### 5 7021-8 ####[facility] LABCLIA [id number] [place] [address] [place] Differential cell count method Nom (Bld) Auto Normal [facility] Comment on above: Order Comment: Speci men Type: BLOOD SPECIMENOrdering Facility: [facility] Address: [address] [place] [address] Performed By: #### 5 7021-8 ####[facility] LABCLIA [id number] [place] [address] [place] Eosinophils (Bld) [#/Vol] 0.21 10*3/uL Normal <0.46 [facility] Comment on above: Order Comment: Speci men Type: BLOOD SPECIMENOrdering Facility: [facility] Address: [address] [place] [address] Performed By: #### 5 7021-8 ####[facility] LABCLIA [id number] [place] [address] [place] Eosinophils/100 WBC (Bld) 2.9 % Normal [facility] Comment on above: Order Comment: Speci men Type: BLOOD SPECIMENOrdering Facility: [facility] Address: [address] [place] [address] Performed By: #### 5 7021-8 ####[facility] LABCLIA [id number] [place] [address] [place] Erythrocyte distribution width (RBC) [Ratio] 15.0 % Normal 11.5-15.0 [facility] Comment on above: Order Comment: Speci men Type: BLOOD SPECIMENOrdering Facility: [facility] Address: [address] [place] [address] Performed By: #### 5 7021-8 ####[facility] LABIA [id number] [place] [address] [place] Hematocrit (Bld) [Volume fraction] 34.7 % Low 39.0-51.0 [facility] Comment on above: Order Comment: Speci men Type: BLOOD SPECIMENOrdering Facility: [facility] Address: [address] [place] [address] Performed By: #### 5 7021-8 ####[facility] LABIA [id number] [place] [address] [place] Hemoglobin (Bld) [Mass/Vol] 11.5 g/dL Low 13.0-17.0 [facility] Comment on above: Order Comment: Speci men Type: BLOOD SPECIMENOrdering Facility: [facility] Address: [address] [place] [address] Performed By: #### 5 7021-8 ####[facility] LABIA [id number] [place] [address] [place] Immature granulocytes (Bld) [#/Vol] 0.08 10*3/uL Normal <0.10 [facility] Comment on above: Order Comment: Speci men Type: BLOOD SPECIMENOrdering Facility: [facility] Address: [address] [place] [address] Performed By: #### 5 7021-8 ####[facility] LABIA [id number] [place] [address] [place] Immature granulocytes/100 WBC (Bld) 1.1 % Normal [facility] Comment on above: Order Comment: Speci men Type: BLOOD SPECIMENOrdering Facility: [facility] Address: [address] [place] [address] Performed By: #### 5 7021-8 ####[facility] LABCLIA [id number] [place] [address] [place] Lymphocytes (Bld) [#/Vol] 0.66 10*3/uL Low 1.00-4.00 [facility] Comment on above: Order Comment: Speci men Type: BLOOD SPECIMENOrdering Facility: [facility] Address: [address] [place] [address] Performed By: #### 5 7021-8 ####[facility] LABCLIA [id number] [place] [address] [place] Lymphocytes/100 WBC (Bld) 9.2 % Normal [facility] Comment on above: Order Comment: Speci men Type: BLOOD SPECIMENOrdering Facility: [facility] Address: [address] [place] [address] Performed By: #### 5 7021-8 ####[facility] LABIA [id number] [place] [address] [place] MCH (RBC) [Entitic mass] 31.3 pg Normal 26.0-34.0 [facility] Comment on above: Order Comment: Speci men Type: BLOOD SPECIMENOrdering Facility: [facility] Address: [address] [place] [address] Performed By: #### 5 7021-8 ####[facility] LABCLIA [id number] [place] [address] [place] MCHC (RBC) [Mass/Vol] 33.1 g/dL Normal 30.5-36.0 [facility] Comment on above: Order Comment: Speci men Type: BLOOD SPECIMENOrdering Facility: [facility] Address: [address] [place] [address] Performed By: #### 5 7021-8 ####[facility] LABCLIA [id number] [id number] [address] [place] MCV (RBC) [Entitic vol] 94.6 fL Normal 80.0-100.0 [facility] Comment on above: Order Comment: Speci men Type: BLOOD SPECIMENOrdering Facility: [facility] Address: [address] [place] [address] Performed By: #### 5 7021-8 ####[facility] LABCLIA [id number] [place] [address] [place] Monocytes (Bld) [#/Vol] 0.89 10*3/uL High <0.87 [facility] Comment on above: Order Comment: Speci men Type: BLOOD SPECIMENOrdering Facility: [facility] Address: [address] [place] [address] Performed By: #### 5 7021-8 ####[facility] LABCLIA [id number] [place] [address] [place] Monocytes/100 WBC (Bld) 12.4 % Normal [facility] Comment on above: Order Comment: Speci men Type: BLOOD SPECIMENOrdering Facility: [facility] Address: [address] [place] [address] Performed By: #### 5 7021-8 ####[facility] LABCLIA [id number] [place] [address] [place] Neutrophils (Bld) [#/Vol] 5.32 10*3/uL Normal 1.45-7.50 [facility] Comment on above: Order Comment: Speci men Type: BLOOD SPECIMENOrdering Facility: [facility] Address: [address] [place] [address] Performed By: #### 5 7021-8 ####[facility] LABCLIA [id number] [place] [address] [place] Neutrophils/100 WBC (Bld) 73.8 % Normal [facility] Comment on above: Order Comment: Speci men Type: BLOOD SPECIMENOrdering Facility: [facility] Address: [address] [place] [address] Performed By: #### 5 7021-8 ####[facility] LABCLIA [id number] [place] [id number] [place] Nucleated RBC (Bld) [#/Vol] 10*3/uL Normal <0.01 [facility] Comment on above: Order Comment: Speci men Type: BLOOD SPECIMENOrdering Facility: [facility] Address: [address] [place] [address] Performed By: #### 5 7021-8 ####[facility] LABIA [id number] [place] [address] [place] Nucleated RBC/100 WBC (Bld) [Ratio] 0.0 /100 WBC Normal [facility] Comment on above: Order Comment: Speci men Type: BLOOD SPECIMENOrdering Facility: [facility] Address: [address] [place] [address] Performed By: #### 5 7021-8 ####[facility] LABIA [id number] [place] [address] [place] Platelet mean volume (Bld) [Entitic vol] 9.8 fL Normal 9.0-12.7 [facility] Comment on above: Order Comment: Speci men Type: BLOOD SPECIMENOrdering Facility: [facility] Address: [address] [place] [address] Performed By: #### 5 7021-8 ####[facility] LABIA [id number] [place] [address] [place] Platelets (Bld) [#/Vol] 187 10*3/uL Normal 150-400 [facility] Comment on above: Order Comment: Speci men Type: BLOOD SPECIMENOrdering Facility: [facility] Address: [address] [place] [address] Performed By: #### 5 7021-8 ####[facility] LABIA [id number] [place] [id number] [place] RBC (Bld) [#/Vol] 3.67 10*6/uL Low 4.20-6.00 [facility] Comment on above: Order Comment: Speci men Type: BLOOD SPECIMENOrdering Facility: [facility] Address: [address] [place] [address] Performed By: #### 5 7021-8 ####[facility] LABCLIA [id number] [place] [address] [place] WBC (Bld) [#/Vol] 7.20 10*3/uL Normal 3.70-11.00 [facility] Comment on above: Order Comment: Speci men Type: BLOOD SPECIMENOrdering Facility: [facility] Address: [address] [place] [address] Performed By: #### 5 7021-8 ####[facility] LABCLIA [id number] [place] [address] [place] Hepatic function 2000 panelo n 06-25-2024 Albumin [Mass/Vol] 3.6 g/dL Low 3.9-4.9 [facility] Comment on above: Order Comment: Speci men Type: BLOOD SPECIMENOrdering Facility: [facility] Address: [address] [place] [address] Performed By: #### 2 4325-3 ####[facility] LABCLIA [id number] [place] [address] [place] ALP [Catalytic activity/Vol] 92 U/L Normal 38-113 [facility] Comment on above: Order Comment: Speci men Type: BLOOD SPECIMENOrdering Facility: [facility] Address: [address] [place] [address] Performed By: #### 2 4325-3 ####[facility] LABCLIA [id number] [place] [address] [place] ALT [Catalytic activity/Vol] 52 U/L Normal 10-54 [facility] Comment on above: Order Comment: Speci men Type: BLOOD SPECIMENOrdering Facility: [facility] Address: [address] [place], [place] [address] Performed By: #### 2 4325-3 ####[facility] LABCLIA [id number] [place] [id number] [place] AST [Catalytic activity/Vol] 23 U/L Normal 14-40 [facility] Comment on above: Order Comment: Speci men Type: BLOOD SPECIMENOrdering Facility: [facility] Address: [address] [place] [address] Performed By: #### 2 4325-3 ####[facility] LABCLIA [id number] [place] [address] [place] Bilirubin [Mass/Vol] 0.3 mg/dL Normal 0.2-1.3 [facility] Comment on above: Order Comment: Speci men Type: BLOOD SPECIMENOrdering Facility: [facility] Address: [address] [place] [address] Performed By: #### 2 4325-3 ####[facility] LABCLIA [id number] [place] [address] [place] Bilirubin.conjugat ed [Mass/Vol] mg/dL Normal <0.2 [facility] Comment on above: Order Comment: Speci men Type: BLOOD SPECIMENOrdering Facility: [facility] Address: [address] [place], [place] [address] Performed By: #### 2 4325-3 ####[facility] LABCLIA [id number] [place] [id number] [place] Protein [Mass/Vol] 6.8 g/dL Normal 6.3-8.0 [facility] Comment on above: Order Comment: Speci men Type: BLOOD SPECIMENOrdering Facility: [facility] Address: [address] [place], [place] [address] Performed By: #### 2 4325-3 ####[facility] LABCLIA [id number] [address] [address] [place] Magnesium SerPl-mCncon 06-25 Magnesium [Mass/Vol] 2.3 mg/dL Normal 1.7-2.3 [facility] Comment on above: Order Comment: Speci men Type: BLOOD SPECIMENOrdering Facility: [facility] Address: [address] [place] [address] Performed By: #### 1 9123-9 ####[facility] LABCLIA [id number] [place] [id number] [place] XR CHEST 1V FRONTAL PORTon 1 08-26-2023 XR CHEST 1V FRONTAL PORT Normal [facility] Basic metabolic 2000 panelon 06-24-2024 Anion gap [Moles/Vol] 14 mmol/L Normal 8-15 [facility] Comment on above: Order Comment: Speci men Type: BLOOD SPECIMENOrdering Facility: [facility] Address: [address] [place] [address] Performed By: #### 2 4321-2, ####[facility] LABCLIA [id number] [place] [address] [place] Calcium [Mass/Vol] 8.8 mg/dL Normal 8.5-10.2 [facility] Comment on above: Order Comment: Speci men Type: BLOOD SPECIMENOrdering Facility: [facility] Address: [address] [place], [place] [address] Performed By: #### 2 4321-2, ####[facility] LABIA [id number] [place] [id number] [place] Chloride [Moles/Vol] 103 mmol/L Normal 98-107 [facility] Comment on above: Order Comment: Speci men Type: BLOOD SPECIMENOrdering Facility: [facility] Address: [address] [place], [place] [address] Performed By: #### 2 4321-2, ####[facility] LABCLIA [id number] [place] [address] [place] CO2 [Moles/Vol] 21 mmol/L Low 22-30 [facility] Comment on above: Order Comment: Speci men Type: BLOOD SPECIMENOrdering Facility: [facility] Address: [address] [place] [address] Performed By: #### 2 4320-2, ####[facility] LABIA [id number] [place] [address] [place] Creatinine [Mass/Vol] 0.94 mg/dL Normal 0.73-1.22 [facility] Comment on above: Order Comment: Speci men Type: BLOOD SPECIMENOrdering Facility: [facility] Address: [address] [place] [address] Performed By: #### 2 4320-07, ####[facility] LABIA [id number] [place] [address] [place] Creatinine and Glomerular filtration rate.predicted panel (S/P/Bld) 88 mL/min/1.73m??? Normal >=60 [facility] Comment on above: Order Comment: Speci men Type: BLOOD SPECIMENOrdering Facility: [facility] Address: [address] [place] [address] Result Comment: Elvia mated Glomerular Filtration Rate (eGFR) is calculated using the 2020 CKD-EPI creatinine equation. This equation utilizes serum creatinine, sex, and age as parameters. The creatinine assay has traceable calibration to isotope dilution-mass spectrometry. Refer to KDIGO guidelines for clinical interpretation. In patients with unstable renal function, e.g. those with acute kidney injury, the eGFR may not accurately reflect actual GFR. Performed By: #### 2 2, ####[facility] LABCLIA [id number] [place] [id number] [place] Glucose [Mass/Vol] 144 mg/dL High 74-99 [facility] Comment on above: Order Comment: Speci men Type: BLOOD SPECIMENOrdering Facility: [facility] Address: [address] [place] [address] Result Comment: The [place] [employer] (ADA) provides guidance for cutoff values for fasting glucose and random glucose. The ADA defines fasting as no caloric intake for at least 8 hours. Fasting plasma glucose results between 100 to 125 mg/dL indicate increased risk for diabetes (prediabetes).Fasting plasma glucose results greater than or equal to 126 mg/dL meet the criteria for diagnosis of diabetes. In the absence of unequivocal hyperglycemia, results should be confirmed by repeat testing. In a patient with classic symptoms of hyperglycemia or hyperglycemic crisis, random plasma glucose results greater than or equal to 200 mg/dL meet the criteria for diagnosis of diabetes.Reference: Standards of Medical Care in Diabetes 2016, [place] [employer]. Diabetes Care. 2016.39(Suppl 1). Performed By: #### 2 4320-07, ####[facility] LABCLIA [id number] [place] [address] [place] Potassium [Moles/Vol] 4.0 mmol/L Normal 3.7-5.1 [facility] Comment on above: Order Comment: Speci men Type: BLOOD SPECIMENOrdering Facility: [facility] Address: [address] [place] [address] Performed By: #### 2 4320-07, ####[facility] LABCLIA [id number] [place] [address] [place] Sodium [Moles/Vol] 138 mmol/L Normal 136-144 [facility] Comment on above: Order Comment: Speci men Type: BLOOD SPECIMENOrdering Facility: [facility] Address: [address] [place] [address] Performed By: #### 2 4320-07, ####[facility] LABCLIA [id number] [place] [id number] [place] Urea nitrogen [Mass/Vol] 15 mg/dL Normal 9-24 [facility] Comment on above: Order Comment: Speci men Type: BLOOD SPECIMENOrdering Facility: [facility] Address: [address] [place] [address] Performed By: #### 2 4321-2, ####[facility] LABCLIA [id number] [address] [address] [place] ECG COMPLETEon 06-24-2024 ECG COMPLETE Normal [facility] [id number] 06-24-2024 ECG01 Normal [facility] MEDICAL EMERon 06-24-2024 MEDICAL [place] Normal [facility] Magnesium SerPl-mCncon 06-24 Magnesium [Mass/Vol] 2.1 mg/dL Normal 1.7-2.3 [facility] Comment on above: Order Comment: Speci men Type: BLOOD SPECIMENOrdering Facility: [facility] Address: [address] [place] [address] Performed By: #### 2 432-2, ####[facility] LABCLIA [id number] [address] [address] [place] THERAPY NTon 06-24-2024 THERAPY NT Normal [facility] Basic metabolic 2000 panelon 06-23-2024 Anion gap [Moles/Vol] 11 mmol/L Normal 8-15 [facility] Comment on above: Order Comment: Speci men Type: BLOOD SPECIMENOrdering Facility: [facility] Address: [address] [place] [address] Performed By: #### 2 4321-2, ####[facility] LABCLIA [id number] [address] [address] [place] Calcium [Mass/Vol] 9.4 mg/dL Normal 8.5-10.2 [facility] Comment on above: Order Comment: Speci men Type: BLOOD SPECIMENOrdering Facility: [facility] Address: [address] [place] [address] Performed By: #### 2 432-2, ####[facility] LABCLIA [id number] [place] [address] [place] Chloride [Moles/Vol] 100 mmol/L Normal 98-107 [facility] Comment on above: Order Comment: Speci men Type: BLOOD SPECIMENOrdering Facility: [facility] Address: [address] [place] [address] Performed By: #### 2 4321-2, ####[facility] LABIA [id number] [place] [address] [place] CO2 [Moles/Vol] 22 mmol/L Normal 22-30 [facility] Comment on above: Order Comment: Speci men Type: BLOOD SPECIMENOrdering Facility: [facility] Address: [address] [place] [address] Performed By: #### 2 4321-2, ####[facility] LABIA [id number] [place] [address] [place] Creatinine [Mass/Vol] 0.94 mg/dL Normal 0.73-1.22 [facility] Comment on above: Order Comment: Speci men Type: BLOOD SPECIMENOrdering Facility: [facility] Address: [address] [place] [address] Performed By: #### 2 4321-2, ####[facility] [id number] [place] [address] [place] Creatinine and Glomerular filtration rate.predicted panel (S/P/Bld) 88 mL/min/1.73m??? Normal >=60 [facility] Comment on above: Order Comment: Speci men Type: BLOOD SPECIMENOrdering Facility: [facility] Address: [address] [place] [address] Result Comment: Elvia mated Glomerular Filtration Rate (eGFR) is calculated using the 2020 CKD-EPI creatinine equation. This equation utilizes serum creatinine, sex, and age as parameters. The creatinine assay has traceable calibration to isotope dilution-mass spectrometry. Refer to KDIGO guidelines for clinical interpretation. In patients with unstable renal function, e.g. those with acute kidney injury, the eGFR may not accurately reflect actual GFR. Performed By: #### 2 4320-07, ####[facility] LABCLIA [id number] [address] [address] [place] Glucose [Mass/Vol] 190 mg/dL High 74-99 [facility] Comment on above: Order Comment: Speci men Type: BLOOD SPECIMENOrdering Facility: [facility] Address: [address] [place] [address] Result Comment: The [place] [employer] (ADA) provides guidance for cutoff values for fasting glucose and random glucose. The ADA defines fasting as no caloric intake for at least 8 hours. Fasting plasma glucose results between 100 to 125 mg/dL indicate increased risk for diabetes (prediabetes).Fasting plasma glucose results greater than or equal to 126 mg/dL meet the criteria for diagnosis of diabetes. In the absence of unequivocal hyperglycemia, results should be confirmed by repeat testing. In a patient with classic symptoms of hyperglycemia or hyperglycemic crisis, random plasma glucose results greater than or equal to 200 mg/dL meet the criteria for diagnosis of diabetes.Reference: Standards of Medical Care in Diabetes 2016, [place] [employer]. Diabetes Care. 2016.39(Suppl 1). Performed By: #### 2 4320-07, ####[facility] LABCLIA [id number] [address] [address] [place] Potassium [Moles/Vol] 4.3 mmol/L Normal 3.7-5.1 [facility] Comment on above: Order Comment: Speci men Type: BLOOD SPECIMENOrdering Facility: [facility] Address: [address] [place] [address] Performed By: #### 2 4320-07, ####[facility] LABCLIA [id number] [address] [address] [place] Sodium [Moles/Vol] 133 mmol/L Low 136-144 [facility] Comment on above: Order Comment: Speci men Type: BLOOD SPECIMENOrdering Facility: [facility] Address: [address] [place] [address] Performed By: #### 2 4321-2, 18397-9 ####[facility] LABIA [id number] [place] [address] [place] Urea nitrogen [Mass/Vol] 14 mg/dL Normal 9-24 [facility] Comment on above: Order Comment: Speci men Type: BLOOD SPECIMENOrdering Facility: [facility] Address: [address] [place] [address] Performed By: #### 2 4321-2, ####[facility] LABIA [id number] [place] [address] [place] CASE MANAGEMon 06-23-2024 CASE MANAGEM Normal [facility] CBC panel Auto (Bld)on 06-23 Erythrocyte distribution width (RBC) [Ratio] 14.9 % Normal 11.5-15.0 [facility] Comment on above: Order Comment: Speci men Type: BLOOD SPECIMENOrdering Facility: [facility] Address: [address] [place] [address] Performed By: #### 5 8410-2 ####[facility] LABIA [id number] [place] [address] [place] Hematocrit (Bld) [Volume fraction] 38.6 % Low 39.0-51.0 [facility] Comment on above: Order Comment: Speci men Type: BLOOD SPECIMENOrdering Facility: [facility] Address: [address] [place] [address] Performed By: #### 5 8410-2 ####[facility] LABIA [id number] [place] [address] [place] Hemoglobin (Bld) [Mass/Vol] 12.4 g/dL Low 13.0-17.0 [facility] Comment on above: Order Comment: Speci men Type: BLOOD SPECIMENOrdering Facility: [facility] Address: [address] [place] [address] Performed By: #### 5 8410-2 ####[facility] LABIA [id number] [place] [address] [place] MCH (RBC) [Entitic mass] 31.6 pg Normal 26.0-34.0 [facility] Comment on above: Order Comment: Speci men Type: BLOOD SPECIMENOrdering Facility: [facility] Address: [address] [place] [address] Performed By: #### 5 8410-2 ####[facility] LABIA [id number] [place] [address] [place] MCHC (RBC) [Mass/Vol] 32.1 g/dL Normal 30.5-36.0 [facility] Comment on above: Order Comment: Speci men Type: BLOOD SPECIMENOrdering Facility: [facility] Address: [address] [place] [address] Performed By: #### 5 8410-2 ####[facility] LABIA [id number] [place] [address] [place] MCV (RBC) [Entitic vol] 98.5 fL Normal 80.0-100.0 [facility] Comment on above: Order Comment: Speci men Type: BLOOD SPECIMENOrdering Facility: [facility] Address: [address] [place] [address] Performed By: #### 5 8410-2 ####[facility] LABCLIA [id number] [place] [address] [place] Nucleated RBC (Bld) [#/Vol] 10*3/uL Normal <0.01 [facility] Comment on above: Order Comment: Speci men Type: BLOOD SPECIMENOrdering Facility: [facility] Address: [address] [place] [address] Performed By: #### 5 8410-2 ####[facility] LABCLIA [id number] [place] [address] [place] Platelet mean volume (Bld) [Entitic vol] 10.0 fL Normal 9.0-12.7 [facility] Comment on above: Order Comment: Speci men Type: BLOOD SPECIMENOrdering Facility: [facility] Address: [address] [place] [address] Performed By: #### 5 8410-2 ####[facility] LABCLIA [id number] [place] [address] [place] Platelets (Bld) [#/Vol] 179 10*3/uL Normal 150-400 [facility] Comment on above: Order Comment: Speci men Type: BLOOD SPECIMENOrdering Facility: [facility] Address: [address] [place] [address] Performed By: #### 5 8410-2 ####[facility] LABIA [id number] [place] [address] [place] RBC (Bld) [#/Vol] 3.92 10*6/uL Low 4.20-6.00 [facility] Comment on above: Order Comment: Speci men Type: BLOOD SPECIMENOrdering Facility: [facility] Address: [address] [place] [address] Performed By: #### 5 8410-2 ####[facility] LABIA [id number] [place] [address] [place] WBC (Bld) [#/Vol] 9.33 10*3/uL Normal 3.70-11.00 [facility] Comment on above: Order Comment: Speci men Type: BLOOD SPECIMENOrdering Facility: [facility] Address: [address] [place] [address] Performed By: #### 5 8410-2 ####[facility] LABCLIA [id number] [place] [address] [place] CONSULT PROGon 06-23-2024 CONSULT PROG Normal [facility] CONSULT PROG Normal [facility] ECG COMPLETEon 06-23-2024 ECG COMPLETE Normal [facility] Magnesium SerPl-mCncon 06-23 Magnesium [Mass/Vol] 1.8 mg/dL Normal 1.7-2.3 [facility] Comment on above: Order Comment: Speci men Type: BLOOD SPECIMENOrdering Facility: [facility] Address: [address] [place] [address] Performed By: #### 2 4321-2, 25403-1 ####[facility] LABCLIA [id number] [place] [address] [place] THERAPY NTon 06-23-2024 THERAPY NT Normal [facility] THERAPY NT Normal [facility] BRIEF OP NOTon 06-22-2024 BRIEF OP NOT Normal [facility] CASE MANAGEMon 06-22-2024 CASE MANAGEM Normal [facility] CBC panel Auto (Bld)on 06-22 Erythrocyte distribution width (RBC) [Ratio] 15.1 % High 11.5-15.0 [facility] Comment on above: Order Comment: Speci men Type: BLOOD SPECIMENOrdering Facility: [facility] Address: [address] [place] [address] Performed By: #### 5 8410-2 ####[facility] LABIA [id number] [place] [address] [place] Hematocrit (Bld) [Volume fraction] 40.0 % Normal 39.0-51.0 [facility] Comment on above: Order Comment: Speci men Type: BLOOD SPECIMENOrdering Facility: [facility] Address: [address] [place] [address] Performed By: #### 5 8410-2 ####[facility] LABCLIA [id number] [address] [address] [place] Hemoglobin (Bld) [Mass/Vol] 12.7 g/dL Low 13.0-17.0 [facility] Comment on above: Order Comment: Speci men Type: BLOOD SPECIMENOrdering Facility: [facility] Address: [address] [place] [address] Performed By: #### 5 8410-2 ####[facility] LABIA [id number] [place] [address] [place] MCH (RBC) [Entitic mass] 31.3 pg Normal 26.0-34.0 [facility] Comment on above: Order Comment: Speci men Type: BLOOD SPECIMENOrdering Facility: [facility] Address: [address] [place] [address] Performed By: #### 5 8410-2 ####[facility] LABIA [id number] [place] [address] [place] MCHC (RBC) [Mass/Vol] 31.8 g/dL Normal 30.5-36.0 [facility] Comment on above: Order Comment: Speci men Type: BLOOD SPECIMENOrdering Facility: [facility] Address: [address] [place] [address] Performed By: #### 5 8410-2 ####[facility] LABIA [id number] [place] [address] [place] MCV (RBC) [Entitic vol] 98.5 fL Normal 80.0-100.0 [facility] Comment on above: Order Comment: Speci men Type: BLOOD SPECIMENOrdering Facility: [facility] Address: [address] [place] [address] Performed By: #### 5 8410-2 ####[facility] LABIA [id number] [place] [address] [place] Nucleated RBC (Bld) [#/Vol] 10*3/uL Normal <0.01 [facility] Comment on above: Order Comment: Speci men Type: BLOOD SPECIMENOrdering Facility: [facility] Address: [address] [place] [address] Performed By: #### 5 8410-2 ####[facility] LABCLIA [id number] [place] [address] [place] Platelet mean volume (Bld) [Entitic vol] 9.9 fL Normal 9.0-12.7 [facility] Comment on above: Order Comment: Speci men Type: BLOOD SPECIMENOrdering Facility: [facility] Address: [address] [place] [address] Performed By: #### 5 8410-2 ####[facility] LABCLIA [id number] [place] [address] [place] Platelets (Bld) [#/Vol] 168 10*3/uL Normal 150-400 [facility] Comment on above: Order Comment: Speci men Type: BLOOD SPECIMENOrdering Facility: [facility] Address: [address] [place] [address] Performed By: #### 5 8410-2 ####[facility] LABIA [id number] [place] [address] [place] RBC (Bld) [#/Vol] 4.06 10*6/uL Low 4.20-6.00 [facility] Comment on above: Order Comment: Speci men Type: BLOOD SPECIMENOrdering Facility: [facility] Address: [address] [place] [address] Performed By: #### 5 8410-2 ####[facility] LABIA [id number] [place] [address] [place] WBC (Bld) [#/Vol] 9.64 10*3/uL Normal 3.70-11.00 [facility] Comment on above: Order Comment: Speci men Type: BLOOD SPECIMENOrdering Facility: [facility] Address: [address] [place] [address] Performed By: #### 5 8410-2 ####[facility] LABIA [id number] [place] [address] [place] CONSULT PROGon 12-26-2024 CONSULT PROG Normal [facility] Comprehensive metabolic 2000 panelon 06-22-2024 Albumin [Mass/Vol] 3.8 g/dL Low 3.9-4.9 [facility] Comment on above: Order Comment: Speci men Type: BLOOD SPECIMENOrdering Facility: [facility] Address: [address] [place] [address] Performed By: #### 1 9123-9, 18348-2 ####[facility] LABCLIA [id number] [place] [address] [place] ALP [Catalytic activity/Vol] 84 U/L Normal 38-113 [facility] Comment on above: Order Comment: Speci men Type: BLOOD SPECIMENOrdering Facility: [facility] Address: [address] [place] [address] Performed By: #### 1 9123-9, 68495-2 ####[facility] LABCLIA [id number] [place] [address] [place] ALT [Catalytic activity/Vol] 81 U/L High 10-54 [facility] Comment on above: Order Comment: Speci men Type: BLOOD SPECIMENOrdering Facility: [facility] Address: [address] [place] [address] Performed By: #### 1 9123-9, 99630-0 ####[facility] LABCLIA [id number] [place] [address] [place] Anion gap [Moles/Vol] 11 mmol/L Normal 8-15 [facility] Comment on above: Order Comment: Speci men Type: BLOOD SPECIMENOrdering Facility: [facility] Address: [address] [place] [address] Performed By: #### 1 9123-9, 54105-2 ####[facility] LABCLIA [id number] [place] [id number] [place] AST [Catalytic activity/Vol] 37 U/L Normal 14-40 [facility] Comment on above: Order Comment: Speci men Type: BLOOD SPECIMENOrdering Facility: [facility] Address: [address] [place] [address] Result Comment: Resu lts may be falsely increased due to interference from hemolysis. Suggest reorder as clinically indicated. Performed By: #### 1 9123-9, ####[facility] LABCLIA [id number] [place] [address] [place] Bilirubin [Mass/Vol] 0.5 mg/dL Normal 0.2-1.3 [facility] Comment on above: Order Comment: Speci men Type: BLOOD SPECIMENOrdering Facility: [facility] Address: [address] [place] [address] Performed By: #### 1 9123-9, ####[facility] LABCLIA [id number] [place] [address] [place] Calcium [Mass/Vol] 8.6 mg/dL Normal 8.5-10.2 [facility] Comment on above: Order Comment: Speci men Type: BLOOD SPECIMENOrdering Facility: [facility] Address: [address] [place] [address] Performed By: #### 1 9123-9, ####[facility] LABCLIA [id number] [place] [address] [place] Chloride [Moles/Vol] 104 mmol/L Normal 98-107 [facility] Comment on above: Order Comment: Speci men Type: BLOOD SPECIMENOrdering Facility: [facility] Address: [address] [place] [address] Performed By: #### 1 9123-9, ####[facility] LABCLIA [id number] [place] [address] [place] CO2 [Moles/Vol] 20 mmol/L Low 22-30 [facility] Comment on above: Order Comment: Speci men Type: BLOOD SPECIMENOrdering Facility: [facility] Address: [address] [place] [address] Performed By: #### 1 9123-9, 86358-5 ####[facility] LABIA [id number] [address] [address] [place] Creatinine [Mass/Vol] 0.77 mg/dL Normal 0.73-1.22 [facility] Comment on above: Order Comment: Speci men Type: BLOOD SPECIMENOrdering Facility: [facility] Address: [address] [place] [address] Performed By: #### 1 9123-9, ####[facility] LABW[facility] [id number] [place] [address] [place] Creatinine and Glomerular filtration rate.predicted panel (S/P/Bld) 97 mL/min/1.73m??? Normal >=60 [facility] Comment on above: Order Comment: [facility] Type: BLOOD SPECIMENOrdering Facility: [facility] Address: [address] [place] [address] Result Comment: Elvia mated Glomerular Filtration Rate (eGFR) is calculated using the 2020 CKD-EPI creatinine equation. This equation utilizes serum creatinine, sex, and age as parameters. The creatinine assay has traceable calibration to isotope dilution-mass spectrometry. Refer to KDIGO guidelines for clinical interpretation. In patients with unstable renal function, e.g. those with acute kidney injury, the eGFR may not accurately reflect actual GFR. Performed By: #### 1 9123-9, ####[facility] LABIA [id number] [place] [id number] [place] Glucose [Mass/Vol] 148 mg/dL High 74-99 [facility] Comment on above: Order Comment: Wes guerin Type: BLOOD SPECIMENOrdering Facility: [facility] Address: [address] [place] [address] Result Comment: The [place] [employer] (ADA) provides guidance for cutoff values for fasting glucose and random glucose. The ADA defines fasting as no caloric intake for at least 8 hours. Fasting plasma glucose results between 100 to 125 mg/dL indicate increased risk for diabetes (prediabetes).Fasting plasma glucose results greater than or equal to 126 mg/dL meet the criteria for diagnosis of diabetes. In the absence of unequivocal hyperglycemia, results should be confirmed by repeat testing. In a patient with classic symptoms of hyperglycemia or hyperglycemic crisis, random plasma glucose results greater than or equal to 200 mg/dL meet the criteria for diagnosis of diabetes.Reference: Standards of Medical Care in Diabetes 2016, [place] [employer]. Diabetes Care. 2016.39(Suppl 1). Performed By: #### 1 23-9, ####[facility] LABCLIA [id number] [place] [address] [place] Potassium [Moles/Vol] 4.6 mmol/L Normal 3.7-5.1 [facility] Comment on above: Order Comment: Speci men Type: BLOOD SPECIMENOrdering Facility: [facility] Address: [address] [place] [address] Performed By: #### 1 239, ####[facility] LABCLIA [id number] [place] [address] [place] Protein [Mass/Vol] 6.3 g/dL Normal 6.3-8.0 [facility] Comment on above: Order Comment: Speci men Type: BLOOD SPECIMENOrdering Facility: [facility] Address: [address] [place] [address] Performed By: #### 1 239, ####[facility] LABCLIA [id number] [place] [id number] [place] Sodium [Moles/Vol] 135 mmol/L Low 136-144 [facility] Comment on above: Order Comment: Speci men Type: BLOOD SPECIMENOrdering Facility: [facility] Address: [address] [place] [address] Performed By: #### 1 239, ####[facility] LABCLIA [id number] [place] [address] [place] Urea nitrogen [Mass/Vol] 15 mg/dL Normal 9-24 [facility] Comment on above: Order Comment: Wes guerin Type: BLOOD SPECIMENOrdering Facility: [facility] Address: [address] [place] [address] Performed By: #### 1 9123-9, 05880-9 ####[facility] [id number] [place] [address] [place] ECG COMPLETEon 06-22-2024 ECG COMPLETE Normal [facility] Magnesium SerPl-mCncon 06-22 Magnesium [Mass/Vol] 1.8 mg/dL Normal 1.7-2.3 [facility] Comment on above: Order Comment: Wes guerin Type: BLOOD SPECIMENOrdering Facility: [facility] Address: [address] [place] [address] Performed By: #### 1 9123-9, 83125-2 ####[facility] [id number] [place] [address] [place] PT EDon 06-22-2024 PT ED Normal [facility] PT panel Coag (PPP)on 2023 INR Coag (PPP) [Relative time] 1.1 {INR} Normal 0.9-1.3 [facility] Comment on above: Order Comment: Wes guerin Type: BLOOD SPECIMENOrdering Facility: [facility] Address: [address] [place] [address] Result Comment: Mere min K Antagonist (VKA) Therapeutic Range: INR 2 to 3 (Target INR of 2.5)Note: For patients treated with VKA drugs, such as warfarin, the [place] [employer] 2012 Guideline recommends a therapeutic INR range of 2 to 3 (target INR of 2.5). This recommendation includes high-risk patients with antiphospholipid syndrome with previous arterial or venous thromboembolism, current-generation mechanical or bioprosthetic aortic heart valve replacement.Note: Patients with mechanical aortic valve replacement and additional risk factors for thromboembolic events (atrial fibrillation, previous thromboembolism, LV dysfunction, hypercoagulable conditions) or an older generation mechanical AVR (i.e., ball in-Cage) or any mechanical MVR should have a INR therapeutic range of 2.5 to 3.5 (target INR of 3).Tara HAMILTON, et al. Chest 2012, 141:7S-47SJimmie RA, et al. [facility] 2017, 70: 252-289 Performed By: #### 1 4979-9, 19701-1 ####[facility] LABCLIA [id number] [place] [address] [place] PT Coag (PPP) [Time] 12.2 s Normal 9.7-13.0 [facility] Comment on above: Order Comment: Speci men Type: BLOOD SPECIMENOrdering Facility: [facility] Address: [address] [place] [address] Performed By: #### 1 4979-9, 66609-5 ####[facility] LABCLIA [id number] [place] [address] [place] TYPE + SCREENon 06-22-2024 ABO A Normal [facility] Comment on above: Order Comment: Speci men Type: BLOOD SPECIMENOrdering Facility: [facility] Address: [address] [place] [address] Performed By: #### T SCR ####[facility] BLOOD BANKCLIA [id number] [place] [address] [place] Rh Nom (Bld) Positive Normal [facility] Comment on above: Order Comment: Speci men Type: BLOOD SPECIMENOrdering Facility: [facility] Address: [address] [place] [address] Performed By: #### T SCR ####[facility] BLOOD BANKCLIA [id number] [place] [address] [place] TYPE AND SCREEN EXPIRATION 06/25/2024 23:59 Normal [facility] Comment on above: Order Comment: Speci men Type: BLOOD SPECIMENOrdering Facility: [facility] Address: [address] [place] [address] Performed By: #### T SCR ####[facility] BANKIA [id number] [place] [address] [place] XR CHEST 2V FRONTAL/LATon XR CHEST 2V FRONTAL/LAT Normal [facility] aPTT PPPon 06-22-2024 aPTT Coag (PPP) [Time] 31.0 s Normal 23.0-32.4 [facility] Comment on above: Order Comment: Speci men Type: BLOOD SPECIMENOrdering Facility: [facility] Address: [address] [place] [address] Performed By: #### 1 4979-9, 83932-3 ####[facility] LABCLIA [id number] [place] [address] [place] Basic metabolic 2000 panelon 06-21-2024 Anion gap [Moles/Vol] 11 mmol/L Normal 8-15 [facility] Comment on above: Order Comment: Speci men Type: BLOOD SPECIMENOrdering Facility: [facility] Address: [address] [place] [address] Performed By: #### 2 4321-2 ####[facility] LABCLIA [id number] [place] [address] [place] Calcium [Mass/Vol] 9.0 mg/dL Normal 8.5-10.2 [facility] Comment on above: Order Comment: Speci men Type: BLOOD SPECIMENOrdering Facility: [facility] Address: [address] [place] [address] Performed By: #### 2 4321-2 ####[facility] LABCLIA [id number] [place] [id number] [place] Chloride [Moles/Vol] 104 mmol/L Normal 98-107 [facility] Comment on above: Order Comment: Speci men Type: BLOOD SPECIMENOrdering Facility: [facility] Address: [address] [place] [address] Performed By: #### 2 4321-2 ####[facility] LABCLIA [id number] [place] [address] [place] CO2 [Moles/Vol] 22 mmol/L Normal 22-30 [facility] Comment on above: Order Comment: Speci men Type: BLOOD SPECIMENOrdering Facility: [facility] Address: [address] [place] [address] Performed By: #### 2 4321-2 ####[facility] LABIA [id number] [place] [address] [place] Creatinine [Mass/Vol] 0.82 mg/dL Normal 0.73-1.22 [facility] Comment on above: Order Comment: Speci men Type: BLOOD SPECIMENOrdering Facility: [facility] Address: [address] [place] [address] Performed By: #### 2 4321-2 ####[facility] LABIA [id number] [place] [address] [place] Creatinine and Glomerular filtration rate.predicted panel (S/P/Bld) 95 mL/min/1.73m??? Normal >=60 [facility] Comment on above: Order Comment: Speci men Type: BLOOD SPECIMENOrdering Facility: [facility] Address: [address] [place] [address] Result Comment: Elvia mated Glomerular Filtration Rate (eGFR) is calculated using the 2020 CKD-EPI creatinine equation. This equation utilizes serum creatinine, sex, and age as parameters. The creatinine assay has traceable calibration to isotope dilution-mass spectrometry. Refer to KDIGO guidelines for clinical interpretation. In patients with unstable renal function, e.g. those with acute kidney injury, the eGFR may not accurately reflect actual GFR. Performed By: #### 2 4321-2 ####[facility] LABCLIA [id number] [place] [address] [place] Glucose [Mass/Vol] 161 mg/dL High 74-99 [facility] Comment on above: Order Comment: Speci men Type: BLOOD SPECIMENOrdering Facility: [facility] Address: [address] [place] [address] Result Comment: The [place] [employer] (ADA) provides guidance for cutoff values for fasting glucose and random glucose. The ADA defines fasting as no caloric intake for at least 8 hours. Fasting plasma glucose results between 100 to 125 mg/dL indicate increased risk for diabetes (prediabetes).Fasting plasma glucose results greater than or equal to 126 mg/dL meet the criteria for diagnosis of diabetes. In the absence of unequivocal hyperglycemia, results should be confirmed by repeat testing. In a patient with classic symptoms of hyperglycemia or hyperglycemic crisis, random plasma glucose results greater than or equal to 200 mg/dL meet the criteria for diagnosis of diabetes.Reference: Standards of Medical Care in Diabetes 2016, [place] [employer]. Diabetes Care. 2016.39(Suppl 1). Performed By: #### 2 4321-2 ####[facility] LABCLIA [id number] [place] [address] [place] Potassium [Moles/Vol] 4.2 mmol/L Normal 3.7-5.1 [facility] Comment on above: Order Comment: Speci men Type: BLOOD SPECIMENOrdering Facility: [facility] Address: [address] [place] [address] Performed By: #### 2 4321-2 ####[facility] LABCLIA [id number] [place] [address] [place] Sodium [Moles/Vol] 137 mmol/L Normal 136-144 [facility] Comment on above: Order Comment: Speci men Type: BLOOD SPECIMENOrdering Facility: [facility] Address: [address] [place] [address] Performed By: #### 2 4321-2 ####[facility] LABCLIA [id number] [place] [address] [place] Urea nitrogen [Mass/Vol] 15 mg/dL Normal 9-24 [facility] Comment on above: Order Comment: Speci men Type: BLOOD SPECIMENOrdering Facility: [facility] Address: [address] [place] [address] Performed By: #### 2 4321-2 ####[facility] LABIA [id number] [place] [address] [place] CBC panel Auto (Bld)on 06-21 Erythrocyte distribution width (RBC) [Ratio] 15.3 % High 11.5-15.0 [facility] Comment on above: Order Comment: Speci men Type: BLOOD SPECIMENOrdering Facility: [facility] Address: [address] [place] [address] Performed By: #### 5 8410-2 ####[facility] [id number] [address] [place] Hematocrit (Bld) [Volume fraction] 39.0 % Normal 39.0-51.0 [facility] Comment on above: Order Comment: Speci men Type: BLOOD SPECIMENOrdering Facility: [facility] Address: [address] [place] [address] Performed By: #### 5 8410-2 ####[facility] [id number] [place] [address] [place] Hemoglobin (Bld) [Mass/Vol] 12.8 g/dL Low 13.0-17.0 [facility] Comment on above: Order Comment: Speci men Type: BLOOD SPECIMENOrdering Facility: [facility] Address: [address] [place] [address] Performed By: #### 5 8410-2 ####[facility]IA [id number] [place] [address] [place] MCH (RBC) [Entitic mass] 31.2 pg Normal 26.0-34.0 [facility] Comment on above: Order Comment: Speci men Type: BLOOD SPECIMENOrdering Facility: [facility] Address: [address] [place] [address] Performed By: #### 5 8410-2 ####[facility] [id number] [place] [address] [place] MCHC (RBC) [Mass/Vol] 32.8 g/dL Normal 30.5-36.0 [facility] Comment on above: Order Comment: Speci men Type: BLOOD SPECIMENOrdering Facility: [facility] Address: [address] [place] [address] Performed By: #### 5 8410-2 ####[facility] [id number] [place] [address] [place] MCV (RBC) [Entitic vol] 95.1 fL Normal 80.0-100.0 [facility] Comment on above: Order Comment: Speci men Type: BLOOD SPECIMENOrdering Facility: [facility] Address: [address] [place] [address] Performed By: #### 5 8410-2 ####[facility] [id number] [place] [address] [place] Nucleated RBC (Bld) [#/Vol] 10*3/uL Normal <0.01 [facility] Comment on above: Order Comment: Speci men Type: BLOOD SPECIMENOrdering Facility: [facility] Address: [address] [place] [address] Performed By: #### 5 8410-2 ####[facility] [id number] [place] [address] [place] Platelet mean volume (Bld) [Entitic vol] 9.7 fL Normal 9.0-12.7 [facility] Comment on above: Order Comment: Speci men Type: BLOOD SPECIMENOrdering Facility: [facility] Address: [address] [place] [address] Performed By: #### 5 8410-2 ####[facility]IA [id number] [address] [id number] [address] [place] Platelets (Bld) [#/Vol] 142 10*3/uL Low 150-400 [facility] Comment on above: Order Comment: Speci men Type: BLOOD SPECIMENOrdering Facility: [facility] Address: [address] [place] [address] Performed By: #### 5 8410-2 ####[facility] LABCLIA [id number] [place] [address] [place] RBC (Bld) [#/Vol] 4.10 10*6/uL Low 4.20-6.00 [facility] Comment on above: Order Comment: Speci men Type: BLOOD SPECIMENOrdering Facility: [facility] Address: [address] [place] [address] Performed By: #### 5 8410-2 ####[facility] LABCLIA [id number] [place] [address] [place] WBC (Bld) [#/Vol] 6.70 10*3/uL Normal 3.70-11.00 [facility] Comment on above: Order Comment: Speci men Type: BLOOD SPECIMENOrdering Facility: [facility] Address: [address] [place] [address] Performed By: #### 5 8410-2 ####[facility] [id number] [place] [address] [place] ECG COMPLETEon 06-21-2024 ECG COMPLETE Normal [facility] XR CHEST 1V FRONTAL PORTon 1 08-22-2023 XR CHEST 1V FRONTAL PORT Normal [facility] CBC panel Auto (Bld)on 06-20 Erythrocyte distribution width (RBC) [Ratio] 15.2 % High 11.5-15.0 [facility] Comment on above: Order Comment: Speci men Type: BLOOD SPECIMENOrdering Facility: [facility] Address: [address] [place] [address] Performed By: #### 5 8410-2 ####[facility] LABCLIA [id number] [place] [address] [place] Hematocrit (Bld) [Volume fraction] 39.0 % Normal 39.0-51.0 [facility] Comment on above: Order Comment: Speci men Type: BLOOD SPECIMENOrdering Facility: [facility] Address: [address] [place] [address] Performed By: #### 5 8410-2 ####[facility] [id number] [place] [address] [place] Hemoglobin (Bld) [Mass/Vol] 12.7 g/dL Low 13.0-17.0 [facility] Comment on above: Order Comment: Speci men Type: BLOOD SPECIMENOrdering Facility: [facility] Address: [address] [place] [address] Performed By: #### 5 8410-2 ####[facility] [id number] [place] [address] [place] MCH (RBC) [Entitic mass] 31.5 pg Normal 26.0-34.0 [facility] Comment on above: Order Comment: Speci men Type: BLOOD SPECIMENOrdering Facility: [facility] Address: [address] [place] [address] Performed By: #### 5 8410-2 ####[facility] [id number] [place] [address] [place] MCHC (RBC) [Mass/Vol] 32.6 g/dL Normal 30.5-36.0 [facility] Comment on above: Order Comment: Speci men Type: BLOOD SPECIMENOrdering Facility: [facility] Address: [address] [place] [address] Performed By: #### 5 8410-2 ####[facility] [id number] [place] [address] [place] MCV (RBC) [Entitic vol] 96.8 fL Normal 80.0-100.0 [facility] Comment on above: Order Comment: Speci men Type: BLOOD SPECIMENOrdering Facility: [facility] Address: [address] [place] [address] Performed By: #### 5 8410-2 ####[facility] [id number] [place] [address] [place] Nucleated RBC (Bld) [#/Vol] 10*3/uL Normal <0.01 [facility] Comment on above: Order Comment: Speci men Type: BLOOD SPECIMENOrdering Facility: [facility] Address: [address] [place] [address] Performed By: #### 5 8410-2 ####[facility] [id number] [place] [address] [place] Platelet mean volume (Bld) [Entitic vol] 9.7 fL Normal 9.0-12.7 [facility] Comment on above: Order Comment: Speci men Type: BLOOD SPECIMENOrdering Facility: [facility] Address: [address] [place] [address] Performed By: #### 5 8410-2 ####[facility] [id number] [place] [address] [place] Platelets (Bld) [#/Vol] 144 10*3/uL Low 150-400 [facility] Comment on above: Order Comment: Speci men Type: BLOOD SPECIMENOrdering Facility: [facility] Address: [address] [place] [address] Performed By: #### 5 8410-2 ####[facility] [id number] [place] [address] [place] RBC (Bld) [#/Vol] 4.03 10*6/uL Low 4.20-6.00 [facility] Comment on above: Order Comment: Speci men Type: BLOOD SPECIMENOrdering Facility: [facility] Address: [address] [place] [address] Performed By: #### 5 8410-2 ####[facility] [id number] [place] [address] [place] WBC (Bld) [#/Vol] 6.75 10*3/uL Normal 3.70-11.00 [facility] Comment on above: Order Comment: Speci men Type: BLOOD SPECIMENOrdering Facility: [facility] Address: [address] [place] [address] Performed By: #### 5 8410-2 ####[facility] [id number] [place] [address] [place] CONSULT PROGon 06-20-2024 CONSULT PROG Normal [facility] CONSULT PROG Normal [facility] ECG COMPLETEon 06-20-2024 ECG COMPLETE Normal [facility] NUTRITIONon 06-20-2024 NUTRITION Normal [facility] PT EDon 06-20-2024 PT ED Normal [facility] PTT, ANTICOAGULANT THERAPYon 06-20-2024 aPTT Coag (PPP) [Time] 53.1 s High 23.0-32.4 [facility] Comment on above: Order Comment: Speci men Type: BLOOD SPECIMENOrdering Facility: [facility] Address: [address] [place] [address] Performed By: #### P TTAC ####[facility] [id number] [place] [address] [place] Vancomycin [place] SerPl-mCncon 06-20-2024 Vancomycin random [Mass/Vol] 19.3 ug/mL Normal 10.0-20.0 [facility] Comment on above: Order Comment: Speci men Type: BLOOD SPECIMENOrdering Facility: [facility] Address: [address] [place] [address] Result Comment: Refe rence ranges and high/low indicator flags are provided as general guidelines only. The treating physician must determine appropriate target levels/dosing based on the specific clinical situation. Performed By: #### 4 091-5 ####[facility] [id number] [place] [address] [place] ANES POSTPROC EVALon 024 ANES POSTPROC EVAL Normal [facility] ANES PRE-OPon 06-19-2024 ANES PRE-OP Normal [facility] ARTERIAL BLOOD GASES WITH IO NIZED MAGNESIUMon 06-19-2024 Base deficit (BldA) [Moles/Vol] -3 mmol/L Low -2-0 [facility] Comment on above: Order Comment: Speci men Type: ARTERIAL BLOOD SPECIMENOrdering Facility: [facility] Address: [address] [place] [address] Performed By: #### A LLMG ####[facility] [id number] [place] [address] [place] Calcium.ionized (Bld) [Mass/Vol] 1.19 mmol/L Normal 1.08-1.30 [facility] Comment on above: Order Comment: Speci men Type: ARTERIAL BLOOD SPECIMENOrdering Facility: [facility] Address: [address] [place] [address] Performed By: #### A LLMG ####[facility] [id number] [place] [address] [place] Calcium.ionized adjusted to pH 7.4 (BldA) [Moles/Vol] 1.18 mmol/L Normal 1.08-1.30 [facility] Comment on above: Order Comment: Speci men Type: ARTERIAL BLOOD SPECIMENOrdering Facility: [facility] Address: [address] [place] [address] Performed By: #### A LLMG ####[facility] [id number] [place] [address] [place] Carboxyhemoglobin (BldA) [Mass fraction] <0.0 Low 0.0-2.0 [facility] Comment on above: Order Comment: Speci men Type: ARTERIAL BLOOD SPECIMENOrdering Facility: [facility] Address: [address] [place] [address] Result Comment: Carb oxyhemoglobin Reference Range for Smokers: 2.0-8.0% Performed By: #### A LLMG ####[facility] LABCLIA [id number] [place] [address] [place] CO2 (Bld) [Partial pressure] 37 mm Hg Normal 36-46 [facility] Comment on above: Order Comment: Speci men Type: ARTERIAL BLOOD SPECIMENOrdering Facility: [facility] Address: [address] [place] [address] Performed By: #### A LLMG ####[facility] LABCLIA [id number] [place] [address] [place] CO2 adjusted to patient's actual temperature (Bld) [Partial pressure] 37 mmHg Normal 36-46 [facility] Comment on above: Order Comment: Speci men Type: ARTERIAL BLOOD SPECIMENOrdering Facility: [facility] Address: [address] [place] [address] Performed By: #### A LLMG ####[facility] LABCLIA [id number] [place] [address] [place] Glucose [Mass/Vol] 216 mg/dL High 60-105 [facility] Comment on above: Order Comment: Speci men Type: ARTERIAL BLOOD SPECIMENOrdering Facility: [facility] Address: [address] [place] [address] Performed By: #### A LLMG ####[facility] LABCLIA [id number] [place] [address] [place] HCO3 (Bld) [Moles/Vol] 21 mmol/L Low 22-26 [facility] Comment on above: Order Comment: Speci men Type: ARTERIAL BLOOD SPECIMENOrdering Facility: [facility] Address: [address] [place] [address] Performed By: #### A LLMG ####[facility] LABCLIA [id number] [place] [address] [place] Hematocrit (Bld) [Volume fraction] 40.5 % Normal 39.0-51.0 [facility] Comment on above: Order Comment: Speci men Type: ARTERIAL BLOOD SPECIMENOrdering Facility: [facility] Address: [address] [place] [address] Performed By: #### A LLMG ####[facility] LABCLIA [id number] [place] [address] [place] Hemoglobin (Bld) [Mass/Vol] 13.2 g/dL Normal 13.0-17.0 [facility] Comment on above: Order Comment: Speci men Type: ARTERIAL BLOOD SPECIMENOrdering Facility: [facility] Address: [address] [place] [address] Performed By: #### A LLMG ####[facility] [id number] [place] [address] [place] Lactate [Moles/Vol] 0.8 mmol/L Normal 0.5-2.2 [facility] Comment on above: Order Comment: Speci men Type: ARTERIAL BLOOD SPECIMENOrdering Facility: [facility] Address: [address] [place] [address] Performed By: #### A LLMG ####[facility] [id number] [place] [address] [place] Magnesium [Moles/Vol] 0.47 mmol/L Normal 0.45-0.60 [facility] Comment on above: Order Comment: Speci men Type: ARTERIAL BLOOD SPECIMENOrdering Facility: [facility] Address: [address] [place] [address] Performed By: #### A LLMG ####[facility] LABCLIA [id number] [place] [address] [place] Methemoglobin (Bld) [Mass fraction] 0.4 % Normal 0.0-1.5 [facility] Comment on above: Order Comment: Speci men Type: ARTERIAL BLOOD SPECIMENOrdering Facility: [facility] Address: [address] [place] [address] Performed By: #### A LLMG ####[facility] LABCLIA [id number] [address] [address] [place] Oxygen (Bld) [Partial pressure] 209 mm Hg High 85-95 [facility] Comment on above: Order Comment: Speci men Type: ARTERIAL BLOOD SPECIMENOrdering Facility: [facility] Address: [address] [place] [address] Performed By: #### A LLMG ####[facility] LABCLIA [id number] [place] [address] [place] Oxygen adjusted to patient's actual temperature (Bld) [Partial pressure] 209 mmHg High 85-95 [facility] Comment on above: Order Comment: Speci men Type: ARTERIAL BLOOD SPECIMENOrdering Facility: [facility] Address: [address] [place] [address] Performed By: #### A LLMG ####[facility] LABCLIA [id number] [place] [address] [place] Oxyhemoglobin (BldA) [Mass fraction] 97 % Normal 95-98 [facility] Comment on above: Order Comment: Speci men Type: ARTERIAL BLOOD SPECIMENOrdering Facility: [facility] Address: [address] [place] [address] Performed By: #### A LLMG ####[facility] LABCLIA [id number] [place] [address] [place] pH (Bld) 7.38 [pH] Normal 7.35-7.45 [facility] Comment on above: Order Comment: Speci men Type: ARTERIAL BLOOD SPECIMENOrdering Facility: [facility] Address: [address] [place] [address] Performed By: #### A LLMG ####[facility] LABCLIA [id number] [place] [address] [place] pH adjusted to patient's actual temperature (Bld) 7.38 Normal 7.35-7.45 [facility] Comment on above: Order Comment: Speci men Type: ARTERIAL BLOOD SPECIMENOrdering Facility: [facility] Address: [address] [place] [address] Performed By: #### A LLMG ####[facility] LABCLIA [id number] [place] [address] [place] Potassium [Moles/Vol] 4.9 mmol/L Normal 3.5-5.0 [facility] Comment on above: Order Comment: Speci men Type: ARTERIAL BLOOD SPECIMENOrdering Facility: [facility] Address: [address] [place] [address] Performed By: #### A LLMG ####[facility] [id number] [place] [address] [place] Sodium [Moles/Vol] 135 mmol/L Low 136-144 [facility] Comment on above: Order Comment: Speci men Type: ARTERIAL BLOOD SPECIMENOrdering Facility: [facility] Address: [address] [place] [address] Performed By: #### A LLMG ####[facility] [id number] [place] [address] [place] Base deficit (BldA) [Moles/Vol] -2 mmol/L Normal -2-0 [facility] Comment on above: Order Comment: Speci men Type: ARTERIAL BLOOD SPECIMENOrdering Facility: [facility] Address: [address] [place] [address] Performed By: #### A LLMG ####[facility] [id number] [place] [address] [place] Calcium.ionized (Bld) [Mass/Vol] 1.25 mmol/L Normal 1.08-1.30 [facility] Comment on above: Order Comment: Speci men Type: ARTERIAL BLOOD SPECIMENOrdering Facility: [facility] Address: [address] [place] [address] Performed By: #### A LLMG ####[facility] LABCLIA [id number] [place] [address] [place] Calcium.ionized adjusted to pH 7.4 (BldA) [Moles/Vol] 1.23 mmol/L Normal 1.08-1.30 [facility] Comment on above: Order Comment: Speci men Type: ARTERIAL BLOOD SPECIMENOrdering Facility: [facility] Address: [address] [place] [address] Performed By: #### A LLMG ####[facility] [id number] [place] [address] [place] Carboxyhemoglobin (BldA) [Mass fraction] <0.0 Low 0.0-2.0 [facility] Comment on above: Order Comment: Speci men Type: ARTERIAL BLOOD SPECIMENOrdering Facility: [facility] Address: [address] [place] [address] Result Comment: Carb oxyhemoglobin Reference Range for Smokers: 2.0-8.0% Performed By: #### A LLMG ####[facility] [id number] [place] [address] [place] CO2 (Bld) [Partial pressure] 38 mm Hg Normal 36-46 [facility] Comment on above: Order Comment: Speci men Type: ARTERIAL BLOOD SPECIMENOrdering Facility: [facility] Address: [address] [place] [address] Performed By: #### A LLMG ####[facility] LABCLIA [id number] [place] [address] [place] CO2 adjusted to patient's actual temperature (Bld) [Partial pressure] 38 mmHg Normal 36-46 [facility] Comment on above: Order Comment: Speci men Type: ARTERIAL BLOOD SPECIMENOrdering Facility: [facility] Address: [address] [place] [address] Performed By: #### A LLMG ####[facility] LABCLIA [id number] [place] [address] [place] Glucose [Mass/Vol] 195 mg/dL High 60-105 [facility] Comment on above: Order Comment: Speci men Type: ARTERIAL BLOOD SPECIMENOrdering Facility: [facility] Address: [address] [place] [address] Performed By: #### A LLMG ####[facility] LABCLIA [id number] [place] [address] [place] HCO3 (Bld) [Moles/Vol] 22 mmol/L Normal 22-26 [facility] Comment on above: Order Comment: Speci men Type: ARTERIAL BLOOD SPECIMENOrdering Facility: [facility] Address: [address] [place] [address] Performed By: #### A LLMG ####[facility] LABCLIA [id number] [place] [address] [place] Hematocrit (Bld) [Volume fraction] 40.2 % Normal 39.0-51.0 [facility] Comment on above: Order Comment: Speci men Type: ARTERIAL BLOOD SPECIMENOrdering Facility: [facility] Address: [address] [place] [address] Performed By: #### A LLMG ####[facility] LABCLIA [id number] [place] [address] [place] Hemoglobin (Bld) [Mass/Vol] 13.1 g/dL Normal 13.0-17.0 [facility] Comment on above: Order Comment: Speci men Type: ARTERIAL BLOOD SPECIMENOrdering Facility: [facility] Address: [address] [place] [address] Performed By: #### A LLMG ####[facility] LABCLIA [id number] [place] [address] [place] Lactate [Moles/Vol] 1.5 mmol/L Normal 0.5-2.2 [facility] Comment on above: Order Comment: Speci men Type: ARTERIAL BLOOD SPECIMENOrdering Facility: [facility] Address: [address] [place] [address] Performed By: #### A LLMG ####[facility] LABCLIA [id number] [place] [address] [place] Magnesium [Moles/Vol] 0.50 mmol/L Normal 0.45-0.60 [facility] Comment on above: Order Comment: Speci men Type: ARTERIAL BLOOD SPECIMENOrdering Facility: [facility] Address: [address] [place] [address] Performed By: #### A LLMG ####[facility] LABCLIA [id number] [place] [address] [place] Methemoglobin (Bld) [Mass fraction] 0.6 % Normal 0.0-1.5 [facility] Comment on above: Order Comment: Speci men Type: ARTERIAL BLOOD SPECIMENOrdering Facility: [facility] Address: [address] [place] [address] Performed By: #### A LLMG ####[facility] LABCLIA [id number] [place] [address] [place] Oxygen (Bld) [Partial pressure] 215 mm Hg High 85-95 [facility] Comment on above: Order Comment: Speci men Type: ARTERIAL BLOOD SPECIMENOrdering Facility: [facility] Address: [address] [place] [address] Performed By: #### A LLMG ####[facility] LABCLIA [id number] [place] [address] [place] Oxygen adjusted to patient's actual temperature (Bld) [Partial pressure] 215 mmHg High 85-95 [facility] Comment on above: Order Comment: Speci men Type: ARTERIAL BLOOD SPECIMENOrdering Facility: [facility] Address: [address] [place] [address] Performed By: #### A LLMG ####[facility]IA [id number] [place] [address] [place] Oxyhemoglobin (BldA) [Mass fraction] 97 % Normal 95-98 [facility] Comment on above: Order Comment: Speci men Type: ARTERIAL BLOOD SPECIMENOrdering Facility: [facility] Address: [address] [place] [address] Performed By: #### A LLMG ####[facility] [id number] [place] [address] [place] pH (Bld) 7.38 [pH] Normal 7.35-7.45 [facility] Comment on above: Order Comment: Speci men Type: ARTERIAL BLOOD SPECIMENOrdering Facility: [facility] Address: [address] [place] [address] Performed By: #### A LLMG ####[facility] LABIA [id number] [place] [address] [place] pH adjusted to patient's actual temperature (Bld) 7.38 Normal 7.35-7.45 [facility] Comment on above: Order Comment: Speci men Type: ARTERIAL BLOOD SPECIMENOrdering Facility: [facility] Address: [address] [place] [address] Performed By: #### A LLMG ####[facility] LABCLIA [id number] [place] [address] [place] Potassium [Moles/Vol] 4.4 mmol/L Normal 3.5-5.0 [facility] Comment on above: Order Comment: Speci men Type: ARTERIAL BLOOD SPECIMENOrdering Facility: [facility] Address: [address] [place] [address] Performed By: #### A LLMG ####[facility] LABCLIA [id number] [place] [address] [place] Sodium [Moles/Vol] 135 mmol/L Low 136-144 [facility] Comment on above: Order Comment: Speci men Type: ARTERIAL BLOOD SPECIMENOrdering Facility: [facility] Address: [address] [place] [address] Performed By: #### A LLMG ####[facility] LABCLIA [id number] [place] [address] [place] BRIEF OP NOTon 06-19-2024 BRIEF OP NOT Normal [facility] Bacteria Tiss Culton 024 Bacteria identified Cx Nom (Tiss) Abnormal [facility] Comment on above: Performed By: #### 4 3408-4 ####[facility] LABCLIA [id number] [place] [address] [place] Bacteria Wnd Culton 06-19-20 24 Bacteria identified Cx Nom (Wound) ORGANISM ID: 1 Few Bacillus species, not bacillus anthracis No susceptibility testing done. GRAM STAIN: No organisms seen No Polymorphonuclear Leukocytes Abnormal [facility] Comment on above: Performed By: #### 6 462-6 ####[facility] LABCLIA [id number] [place] [address] [place] Bacteria identified Cx Nom (Wound) ORGANISM ID: 1 Staphylococcus epidermidis Growth in Enrichment Broth Only Refer to specimen collected on 06/19/2024 at 1152 [[id number]] GRAM STAIN: No organisms seen No Polymorphonuclear Leukocytes Abnormal [facility] Comment on above: Performed By: #### 6 462-6 ####[facility] LABCLIA [id number] [place] [address] [place] Bacteria identified Cx Nom (Wound) Abnormal [facility] Comment on above: Performed By: #### 6 462-6 ####[facility] LABCLIA [id number] [place] [address] [place] CASE MANAGEMon 06-19-2024 CASE MANAGEM Normal [facility] CBC panel Auto (Bld)on 06-19 Erythrocyte distribution width (RBC) [Ratio] 15.4 % High 11.5-15.0 [facility] Comment on above: Order Comment: Speci men Type: BLOOD SPECIMENOrdering Facility: [facility] Address: [address] [place] [address] Performed By: #### 5 8410-2 ####[facility] LABIA [id number] [address] [place] Hematocrit (Bld) [Volume fraction] 41.3 % Normal 39.0-51.0 [facility] Comment on above: Order Comment: Speci men Type: BLOOD SPECIMENOrdering Facility: [facility] Address: [address] [place] [address] Performed By: #### 5 8410-2 ####[facility] LABIA [id number] [place] [address] [place] Hemoglobin (Bld) [Mass/Vol] 13.3 g/dL Normal 13.0-17.0 [facility] Comment on above: Order Comment: Speci men Type: BLOOD SPECIMENOrdering Facility: [facility] Address: [address] [place] [address] Performed By: #### 5 8410-2 ####[facility] LABIA [id number] [place] [address] [place] MCH (RBC) [Entitic mass] 31.5 pg Normal 26.0-34.0 [facility] Comment on above: Order Comment: Speci men Type: BLOOD SPECIMENOrdering Facility: [facility] Address: [address] [place] [address] Performed By: #### 5 8410-2 ####[facility] LABIA [id number] [place] [address] [place] MCHC (RBC) [Mass/Vol] 32.2 g/dL Normal 30.5-36.0 [facility] Comment on above: Order Comment: Speci men Type: BLOOD SPECIMENOrdering Facility: [facility] Address: [address] [place] [address] Performed By: #### 5 8410-2 ####[facility] LABIA [id number] [place] [address] [place] MCV (RBC) [Entitic vol] 97.9 fL Normal 80.0-100.0 [facility] Comment on above: Order Comment: Speci men Type: BLOOD SPECIMENOrdering Facility: [facility] Address: [address] [place] [address] Performed By: #### 5 8410-2 ####[facility] [id number] [place] [address] [place] Nucleated RBC (Bld) [#/Vol] 10*3/uL Normal <0.01 [facility] Comment on above: Order Comment: Speci men Type: BLOOD SPECIMENOrdering Facility: [facility] Address: [address] [place] [address] Performed By: #### 5 8410-2 ####[facility] LABIA [id number] [place] [address] [place] Platelet mean volume (Bld) [Entitic vol] 10.0 fL Normal 9.0-12.7 [facility] Comment on above: Order Comment: Speci men Type: BLOOD SPECIMENOrdering Facility: [facility] Address: [address] [place] [address] Performed By: #### 5 8410-2 ####[facility] LABIA [id number] [place] [address] [place] Platelets (Bld) [#/Vol] 154 10*3/uL Normal 150-400 [facility] Comment on above: Order Comment: Speci men Type: BLOOD SPECIMENOrdering Facility: [facility] Address: [address] [place] [address] Performed By: #### 5 8410-2 ####[facility] LABIA [id number] [place] [address] [place] RBC (Bld) [#/Vol] 4.22 10*6/uL Normal 4.20-6.00 [facility] Comment on above: Order Comment: Speci men Type: BLOOD SPECIMENOrdering Facility: [facility] Address: [address] [place] [address] Performed By: #### 5 8410-2 ####[facility] LABIA [id number] [place] [address] [place] WBC (Bld) [#/Vol] 3.76 10*3/uL Normal 3.70-11.00 [facility] Comment on above: Order Comment: Speci men Type: BLOOD SPECIMENOrdering Facility: [facility] Address: [address] [place] [address] Performed By: #### 5 8410-2 ####[facility] LABIA [id number] [place] [address] [place] CONSULT PROGon 06-19-2024 CONSULT PROG Normal [facility] CONSULT PROG Normal [facility] CREATININE BLDon 06-19-2024 Creatinine [Mass/Vol] 0.93 mg/dL Normal 0.73-1.22 [facility] Comment on above: Order Comment: Speci men Type: BLOOD SPECIMENOrdering Facility: [facility] Address: [address] [place] [address] Performed By: #### C RET1 ####[facility] [id number] [place] [address] [place] Creatinine and Glomerular filtration rate.predicted panel (S/P/Bld) 89 mL/min/1.73m??? Normal >=60 [facility] Comment on above: Order Comment: Speci men Type: BLOOD SPECIMENOrdering Facility: [facility] Address: [address] [place] [address] Result Comment: Elvia mated Glomerular Filtration Rate (eGFR) is calculated using the 2020 CKD-EPI creatinine equation. This equation utilizes serum creatinine, sex, and age as parameters. The creatinine assay has traceable calibration to isotope dilution-mass spectrometry. Refer to KDIGO guidelines for clinical interpretation. In patients with unstable renal function, e.g. those with acute kidney injury, the eGFR may not accurately reflect actual GFR. Performed By: #### C RET1 ####[facility] LABCLIA [id number] [place] [address] [place] ECG COMPLETEon 06-19-2024 ECG COMPLETE Normal [facility] [id number] 06-19-2024 ECG01 Normal [facility] INTRAOPERATIVE ECHO PREon INTRAOPERATIVE ECHO PRE Normal [facility] PTT, ANTICOAGULANT THERAPYon 06-19-2024 aPTT Coag (PPP) [Time] 51.0 s High 23.0-32.4 [facility] Comment on above: Order Comment: Speci men Type: BLOOD SPECIMENOrdering Facility: [facility] Address: [address] [place] [address] Performed By: #### P TTAC ####[facility] LABIA [id number] [address] [place] aPTT Coag (PPP) [Time] 29.0 s Normal 23.0-32.4 [facility] Comment on above: Order Comment: Speci men Type: BLOOD SPECIMENOrdering Facility: [facility] Address: [address] [place] [address] Performed By: #### P TTAC ####[facility] LABIA [id number] [place] [address] [place] SURGICAL PATHOLOGYon 024 CASE REPORT Normal [facility] Comment on above: Order Comment: Speci men Type: DEVICE SPECIMENOrdering Facility: [facility] Address: [address] [place] [address] Result Comment: Surg ical Pathology Report Case: [id number] Provider: Lui Cooper MD Collected: 06/19/2024 10:51 AMOrdering Location: Admitting Received: 06/20/2024 10:09 AMPathologist: Christiano Proctor MD, PhDSpecimens: A) - Hardware/Device/Foreign Body, RA Lead B) - Hardware/Device/Foreign Body, LV Lead C) - Hardware/Device/Foreign Body, old RV Lead D) - Hardware/Device/Foreign Body, old Device Performed By: #### S ####[facility] LABCLIA [id number] [address] [place] CLINICAL HISTORY Normal [facility] Comment on above: Order Comment: Speci truong Type: DEVICE SPECIMENOrdering Facility: [facility] Address: [address] [place] [address] Result Comment: Pre- op diagnosis:Infection and inflammatory reaction due to cardiac device, implant, and graft, initial encounter ([facility]) [T82.7XXA]Ischemic cardiomyopathy [I25.5]Chronic systolic CHF (congestive heart failure) ([facility]) [I50.22] Performed By: #### S ####[facility] LABCLIA [id number] [address] DIAGNOSIS COMMENT Normal [facility] Comment on above: Order Comment: Speci truong Type: DEVICE SPECIMENOrdering Facility: [facility] Address: [address] [place] [address] Result Comment: C. A Movat stain demonstrates a split level thickness of vein wall. Separately pieces of calcified fibrous cuff are present. There is no evidence of acute inflammation.Laboratory Developed Test (LDT) Disclaimer:Performance characteristics of immunohistochemical, immunofluorescent and chromogenic in-situ hybridization tests have been determined by the performing laboratory within [facility]???s [facility] Department ([facility], [facility], [facility], [facility], [facility], [facility], or [facility]) in a manner consistent with CLIA requirements. One or more of these tests have not been cleared or approved by the FDA. [facility] is regulated under CLIA as qualified to perform high-complexity testing. These tests are used for clinical purposes. They should not be regarded as investigational or for research. Positive and negative controls stain appropriately. Performed By: #### S ####[facility] LABCLIA [id number] [place] [address] [place] FINAL DIAGNOSIS Normal [facility] Comment on above: Order Comment: Speci men Type: DEVICE SPECIMENOrdering Facility: [facility] Address: [address] [place] [address] Result Comment: A. R ight atrium, lead, extraction- Pacing or defibrillator lead wire without attached soft tissue (gross examination only).ERMELINDA/BILL 06/22/24 11:47 AMB. Left ventricle, lead, extraction- Pacing or defibrillator lead wire without attached soft tissue (gross examination only).ERMELINDA/BILL 06/22/24 11:47 AMC. Right ventricle, lead, extraction-Lead wire with calcified fibrous cuff and split level thickness of vein wall.D. Chest pocket, device, removal:- Pulse generator (gross examination only)./BILL 06/22/24 11:48 AM Performed By: #### S ####[facility] LABIA [id number] [place] [address] [place] FINAL PERFORMING LAB Normal [facility] Comment on above: Order Comment: Speci men Type: DEVICE SPECIMENOrdering Facility: [facility] Address: [address] [place] [address] Result Comment: Diag nostic interpretation performed at [facility], [address] [place] [address] CLIA# [id number] Director: Nomi Burrows M.D. Performed By: #### S ####[facility] LABCLIA [id number] [place] [address] [place] GROSS DESCRIPTION Normal [facility] Comment on above: Order Comment: Speci men Type: DEVICE SPECIMENOrdering Facility: [facility] Address: [place] [address] Result Comment: Monica Granados ardware/Device/Foreign BodyReceived in formalin, labeled RA lead is a segment of lead wire measuring 44.5 cm in length and 0.2 cm in diameter. The tip is absent. The screw tip is not present. A connector pin is present with the following inscriptions: [id number] 52 cm [employer] I-S-1B I. The body of the lead is fully insulated. There are no coils present. There is no soft tissue present. The specimen is for gross examination only and is reviewed with Dr. Proctor.B. Hardware/Device/Foreign BodyReceived in formalin, labeled LV lead is a segment of lead wire measuring 73.5 cm in length and 0.2 cm in diameter. The tip is absent. The screw tip is not present. A connector pin is present with the following inscriptions: [employer] I-S 4-LL LL 4674 167412 86 cm. The body of the lead is fully insulated. There are no coils present. There is no soft tissue present. The specimen is for gross examination only and is reviewed with Dr. Proctor.C. Hardware/Device/Foreign BodyReceived in formalin, labeled old RV lead is a segment of lead wire measuring 39 cm in length and 0.3 cm in diameter. The tip is absent. The screw tip is not present. A connector pin is not present. The body of the lead is fully insulated. There is 1 coil present. A segment of soft tissue is present, measuring 11.0 x 0.3 x 0.3 cm, located 5.0 cm from the closest end. The soft tissue is entirely submitted in cassettes C1-C2 (C2 following light decalcification in formic acid).D. Hardware/Device/Foreign BodyReceived in formalin, labeled old device is a [employer] X4 DIRECT[employer] OF FIELD [employer]ICE-D metallic pulse generator device, inscribed with the serial number [id number]. The device is also inscribed with model G138 type DDDR Kaylee . There is no tissue. No sections are submitted. The specimen is reviewed with Dr. Proctor.BILL June 22, 2024 10:13 AMGross examination performed at [facility], [address] [place] [address] Performed By: #### S ####[facility] LABIA [id number] [place] [address] [place] CBC panel Auto (Bld)on 06-18 Erythrocyte distribution width (RBC) [Ratio] 15.4 % High 11.5-15.0 [facility] Comment on above: Order Comment: Speci men Type: BLOOD SPECIMENOrdering Facility: [facility] Address: [address] [place] [address] Performed By: #### 5 8410-2 ####[facility] LABW[facility] [id number] [place] [address] [place] Hematocrit (Bld) [Volume fraction] 45.1 % Normal 39.0-51.0 [facility] Comment on above: Order Comment: Speci men Type: BLOOD SPECIMENOrdering Facility: [facility] Address: [address] [place] [address] Performed By: #### 5 8410-2 ####[facility] [id number] [place] [address] [place] Hemoglobin (Bld) [Mass/Vol] 14.6 g/dL Normal 13.0-17.0 [facility] Comment on above: Order Comment: Speci men Type: BLOOD SPECIMENOrdering Facility: [facility] Address: [address] [place] [address] Performed By: #### 5 8410-2 ####[facility] LABIA [id number] [place] [address] [place] MCH (RBC) [Entitic mass] 31.4 pg Normal 26.0-34.0 [facility] Comment on above: Order Comment: Speci men Type: BLOOD SPECIMENOrdering Facility: [facility] Address: [address] [place] [address] Performed By: #### 5 8410-2 ####[facility] LABCLIA [id number] [place] [address] [place] MCHC (RBC) [Mass/Vol] 32.4 g/dL Normal 30.5-36.0 [facility] Comment on above: Order Comment: Speci men Type: BLOOD SPECIMENOrdering Facility: [facility] Address: [address] [place] [address] Performed By: #### 5 8410-2 ####[facility] LABIA [id number] [place] [address] [place] MCV (RBC) [Entitic vol] 97.0 fL Normal 80.0-100.0 [facility] Comment on above: Order Comment: Speci men Type: BLOOD SPECIMENOrdering Facility: [facility] Address: [address] [place] [address] Performed By: #### 5 8410-2 ####[facility] LABIA [id number] [place] [address] [place] Nucleated RBC (Bld) [#/Vol] 10*3/uL Normal <0.01 [facility] Comment on above: Order Comment: Speci men Type: BLOOD SPECIMENOrdering Facility: [facility] Address: [address] [place] [address] Performed By: #### 5 8410-2 ####[facility] LABIA [id number] [place] [address] [place] Platelet mean volume (Bld) [Entitic vol] 9.8 fL Normal 9.0-12.7 [facility] Comment on above: Order Comment: Speci men Type: BLOOD SPECIMENOrdering Facility: [facility] Address: [address] [place] [address] Performed By: #### 5 8410-2 ####[facility] LABIA [id number] [place] [address] [place] Platelets (Bld) [#/Vol] 157 10*3/uL Normal 150-400 [facility] Comment on above: Order Comment: Speci men Type: BLOOD SPECIMENOrdering Facility: [facility] Address: [address] [place] [address] Performed By: #### 5 8410-2 ####[facility] LABCLIA [id number] [place] [address] [place] RBC (Bld) [#/Vol] 4.65 10*6/uL Normal 4.20-6.00 [facility] Comment on above: Order Comment: Speci men Type: BLOOD SPECIMENOrdering Facility: [facility] Address: [address] [place] [address] Performed By: #### 5 8410-2 ####[facility] LABCLIA [id number] [place] [address] [place] WBC (Bld) [#/Vol] 4.57 10*3/uL Normal 3.70-11.00 [facility] Comment on above: Order Comment: Speci men Type: BLOOD SPECIMENOrdering Facility: [facility] Address: [address] [place] [address] Performed By: #### 5 8410-2 ####[facility] LABIA [id number] [place] [address] [place] PTT, ANTICOAGULANT THERAPYon 06-18-2024 aPTT Coag (PPP) [Time] 66.5 s High 23.0-32.4 [facility] Comment on above: Order Comment: Speci men Type: BLOOD SPECIMENOrdering Facility: [facility] Address: [address] [place] [address] Performed By: #### P TTAC ####[facility] LABCLIA [id number] [place] [address] [place] aPTT Coag (PPP) [Time] 59.4 s High 23.0-32.4 [facility] Comment on above: Order Comment: Speci men Type: BLOOD SPECIMENOrdering Facility: [facility] Address: [address] [place] [address] Performed By: #### P TTAC ####[facility] LABCLIA [id number] [place] [address] [place] TYPE + SCREENon 06-18-2024 ABO A Normal [facility] Comment on above: Order Comment: Speci men Type: BLOOD SPECIMENOrdering Facility: [facility] Address: [address] [place] [address] Performed By: #### T SCR ####[facility] BLOOD BANKCLIA [id number] [place] [address] [place] Rh Nom (Bld) Positive Normal [facility] Comment on above: Order Comment: Speci men Type: BLOOD SPECIMENOrdering Facility: [facility] Address: [address] [place] [address] Performed By: #### T SCR ####[facility] BLOOD BANKCLIA [id number] [place] [address] [place] TYPE AND SCREEN EXPIRATION 06/21/2024 23:59 Normal [facility] Comment on above: Order Comment: Speci men Type: BLOOD SPECIMENOrdering Facility: [facility] Address: [address] [place] [address] Performed By: #### T SCR ####[facility] BLOOD BANKCLIA [id number] [place] [address] [place] CBC panel Auto (Bld)on 06-17 Erythrocyte distribution width (RBC) [Ratio] 15.3 % High 11.5-15.0 [facility] Comment on above: Order Comment: Speci men Type: BLOOD SPECIMENOrdering Facility: [facility] Address: [address] [place] [address] Performed By: #### 5 8410-2 ####[facility] LABCLIA [id number] [place] [address] [place] Hematocrit (Bld) [Volume fraction] 46.7 % Normal 39.0-51.0 [facility] Comment on above: Order Comment: Speci men Type: BLOOD SPECIMENOrdering Facility: [facility] Address: [address] [place] [address] Performed By: #### 5 8410-2 ####[facility] LABCLIA [id number] [place] [address] [place] Hemoglobin (Bld) [Mass/Vol] 14.9 g/dL Normal 13.0-17.0 [facility] Comment on above: Order Comment: Speci men Type: BLOOD SPECIMENOrdering Facility: [facility] Address: [address] [place] [address] Performed By: #### 5 8410-2 ####[facility] LABCLIA [id number] [place] [address] [place] MCH (RBC) [Entitic mass] 31.1 pg Normal 26.0-34.0 [facility] Comment on above: Order Comment: Speci men Type: BLOOD SPECIMENOrdering Facility: [facility] Address: [address] [place] [address] Performed By: #### 5 8410-2 ####[facility] LABIA [id number] [place] [address] [place] MCHC (RBC) [Mass/Vol] 31.9 g/dL Normal 30.5-36.0 [facility] Comment on above: Order Comment: Speci men Type: BLOOD SPECIMENOrdering Facility: [facility] Address: [address] [place] [address] Performed By: #### 5 8410-2 ####[facility] LABCLIA [id number] [place] [address] [place] MCV (RBC) [Entitic vol] 97.5 fL Normal 80.0-100.0 [facility] Comment on above: Order Comment: Speci men Type: BLOOD SPECIMENOrdering Facility: [facility] Address: [address] [place] [address] Performed By: #### 5 8410-2 ####[facility] LABIA [id number] [place] [address] [place] Nucleated RBC (Bld) [#/Vol] 10*3/uL Normal <0.01 [facility] Comment on above: Order Comment: Speci men Type: BLOOD SPECIMENOrdering Facility: [facility] Address: [address] [place] [address] Performed By: #### 5 8410-2 ####[facility] LABIA [id number] [place] [address] [place] Platelet mean volume (Bld) [Entitic vol] 9.9 fL Normal 9.0-12.7 [facility] Comment on above: Order Comment: Speci men Type: BLOOD SPECIMENOrdering Facility: [facility] Address: [address] [place] [address] Performed By: #### 5 8410-2 ####[facility] LABIA [id number] [place] [address] [place] Platelets (Bld) [#/Vol] 166 10*3/uL Normal 150-400 [facility] Comment on above: Order Comment: Speci men Type: BLOOD SPECIMENOrdering Facility: [facility] Address: [address] [place] [address] Performed By: #### 5 8410-2 ####[facility] LABIA [id number] [place] [address] [place] RBC (Bld) [#/Vol] 4.79 10*6/uL Normal 4.20-6.00 [facility] Comment on above: Order Comment: Speci men Type: BLOOD SPECIMENOrdering Facility: [facility] Address: [address] [place] [address] Performed By: #### 5 8410-2 ####[facility] LABIA [id number] [place] [address] [place] WBC (Bld) [#/Vol] 4.27 10*3/uL Normal 3.70-11.00 [facility] Comment on above: Order Comment: Speci men Type: BLOOD SPECIMENOrdering Facility: [facility] Address: [address] [place] [address] Performed By: #### 5 8410-2 ####[facility] LABIA [id number] [place] [address] [place] ECG COMPLETEon 06-17-2024 ECG COMPLETE Normal [facility] PTT, ANTICOAGULANT THERAPYon 06-17-2024 aPTT Coag (PPP) [Time] 47.9 s High 23.0-32.4 [facility] Comment on above: Order Comment: Speci men Type: BLOOD SPECIMENOrdering Facility: [facility] Address: [address] [place] [address] Performed By: #### P TTAC ####[facility] LABIA [id number] [address] [place] aPTT Coag (PPP) [Time] 71.0 s High 23.0-32.4 [facility] Comment on above: Order Comment: Speci men Type: BLOOD SPECIMENOrdering Facility: [facility] Address: [address] [place] [address] Performed By: #### P TTAC ####[facility] LABIA [id number] [place] [address] [place] aPTT Coag (PPP) [Time] 82.2 s High 23.0-32.4 [facility] Comment on above: Order Comment: Speci men Type: BLOOD SPECIMENOrdering Facility: [facility] Address: [address] [place] [address] Result Comment: Inte rpret with caution. Sample centrifuged greater than 1 hour from collection time. According to Clinical and Laboratory Standards [place] guidelines, results could be falsely decreased due to heparin neutralization by in vitro release of platelet factor 4. Suggest correlation with clinical findings and redraw if indicated. Performed By: #### P [facility] ####[facility] LABCLIA [id number] [address] [address] [place] Basic metabolic 2000 panelon 06-16-2024 Anion gap [Moles/Vol] 13 mmol/L Normal 8-15 [facility] Comment on above: Order Comment: Speci men Type: BLOOD SPECIMENOrdering Facility: [facility] Address: [address] [place] [address] Performed By: #### 2 4321-2, ####[facility] LABCLIA [id number] [place] [address] [place] Calcium [Mass/Vol] 9.0 mg/dL Normal 8.5-10.2 [facility] Comment on above: Order Comment: Speci men Type: BLOOD SPECIMENOrdering Facility: [facility] Address: [address] [place] [address] Performed By: #### 2 432-2, ####[facility] LABCLIA [id number] [address] [address] [place] Chloride [Moles/Vol] 101 mmol/L Normal 98-107 [facility] Comment on above: Order Comment: Speci men Type: BLOOD SPECIMENOrdering Facility: [facility] Address: [address] [place] [address] Performed By: #### 2 432-2, ####[facility] LABCLIA [id number] [address] [address] [place] CO2 [Moles/Vol] 20 mmol/L Low 22-30 [facility] Comment on above: Order Comment: Speci men Type: BLOOD SPECIMENOrdering Facility: [facility] Address: [address] [place] [address] Performed By: #### 2 432-2, ####[facility] LABCLIA [id number] [place] [id number] [place] Creatinine [Mass/Vol] 1.10 mg/dL Normal 0.73-1.22 [facility] Comment on above: Order Comment: Wes guerin Type: BLOOD SPECIMENOrdering Facility: [facility] Address: [address] [place] [address] Performed By: #### 2 432-, ####[facility] LABIA [id number] [place] [address] [place] Creatinine and Glomerular filtration rate.predicted panel (S/P/Bld) 73 mL/min/1.73m??? Normal >=60 [facility] Comment on above: Order Comment: Wes guerin Type: BLOOD SPECIMENOrdering Facility: [facility] Address: [address] [place] [address] Result Comment: Elvia mated Glomerular Filtration Rate (eGFR) is calculated using the 2020 CKD-EPI creatinine equation. This equation utilizes serum creatinine, sex, and age as parameters. The creatinine assay has traceable calibration to isotope dilution-mass spectrometry. Refer to KDIGO guidelines for clinical interpretation. In patients with unstable renal function, e.g. those with acute kidney injury, the eGFR may not accurately reflect actual GFR. Performed By: #### 2 4321-, ####[facility] LABIA [id number] [place] [address] [place] Glucose [Mass/Vol] 133 mg/dL High 74-99 [facility] Comment on above: Order Comment: Wes guerin Type: BLOOD SPECIMENOrdering Facility: [facility] Address: [address] [place] [address] Result Comment: The [place] [employer] (ADA) provides guidance for cutoff values for fasting glucose and random glucose. The ADA defines fasting as no caloric intake for at least 8 hours. Fasting plasma glucose results between 100 to 125 mg/dL indicate increased risk for diabetes (prediabetes).Fasting plasma glucose results greater than or equal to 126 mg/dL meet the criteria for diagnosis of diabetes. In the absence of unequivocal hyperglycemia, results should be confirmed by repeat testing. In a patient with classic symptoms of hyperglycemia or hyperglycemic crisis, random plasma glucose results greater than or equal to 200 mg/dL meet the criteria for diagnosis of diabetes.Reference: Standards of Medical Care in Diabetes 2016, [place] [employer]. Diabetes Care. 2016.39(Suppl 1). Performed By: #### 2 4320-07, ####[facility] LABCLIA [id number] [place] [id number] [place] Potassium [Moles/Vol] 4.2 mmol/L Normal 3.7-5.1 [facility] Comment on above: Order Comment: Speci men Type: BLOOD SPECIMENOrdering Facility: [facility] Address: [address] [place] [address] Performed By: #### 2 4320-07, ####[facility] LABCLIA [id number] [place] [id number] [place] Sodium [Moles/Vol] 134 mmol/L Low 136-144 [facility] Comment on above: Order Comment: Speci men Type: BLOOD SPECIMENOrdering Facility: [facility] Address: [address] [place] [address] Performed By: #### 2 4320-07, ####[facility] LABCLIA [id number] [place] [id number] [place] Urea nitrogen [Mass/Vol] 27 mg/dL High 9-24 [facility] Comment on above: Order Comment: Speci men Type: BLOOD SPECIMENOrdering Facility: [facility] Address: [address] [place] [address] Performed By: #### 2 4320-07, ####[facility] LABCLIA [id number] [place] [id number] [place] CONSULTon 06-16-2024 CONSULT Normal [facility] CONSULT Normal [facility] CONSULT PROGon 06-16-2024 CONSULT PROG Normal [facility] CONSULT PROG Normal [facility] Magnesium SerPl-mCncon 06-16 Magnesium [Mass/Vol] 2.0 mg/dL Normal 1.7-2.3 [facility] Comment on above: Order Comment: Speci men Type: BLOOD SPECIMENOrdering Facility: [facility] Address: [address] [place] [address] Performed By: #### 2 4321-2, 04047-9 ####[facility] LABCLIA [id number] [place] [address] [place] NM PET/CT CARD PERF REST/STR ESSon 06-16-2024 NM PET/CT CARD PERF REST/STRESS Normal [facility] NM PET/CT CARDIAC VIABILITYo n 06-16-2024 NM PET/CT CARDIAC VIABILITY Normal [facility] PTT, ANTICOAGULANT THERAPYon 06-16-2024 aPTT Coag (PPP) [Time] 46.9 s High 23.0-32.4 [facility] Comment on above: Order Comment: Speci men Type: BLOOD SPECIMENOrdering Facility: [facility] Address: [address] [place] [address] Performed By: #### P TTAC ####[facility] LABIA [id number] [place] [address] [place] Vancomycin [place] SerPl-mCncon 06-16-2024 Vancomycin random [Mass/Vol] 14.7 ug/mL Normal 10.0-20.0 [facility] Comment on above: Order Comment: Speci men Type: BLOOD SPECIMENOrdering Facility: [facility] Address: [address] [place] [address] Result Comment: Refe rence ranges and high/low indicator flags are provided as general guidelines only. The treating physician must determine appropriate target levels/dosing based on the specific clinical situation. Performed By: #### 4 091-5 ####[facility] LABCLIA [id number] [place] [address] [place] Basic metabolic 2000 panelon 06-15-2024 Anion gap [Moles/Vol] 14 mmol/L Normal 8-15 [facility] Comment on above: Order Comment: Speci men Type: BLOOD SPECIMENOrdering Facility: [facility] Address: [address] [place] [address] Performed By: #### 2 4321-2, ####[facility] LABCLIA [id number] [place] [address] [place] Calcium [Mass/Vol] 9.2 mg/dL Normal 8.5-10.2 [facility] Comment on above: Order Comment: Speci men Type: BLOOD SPECIMENOrdering Facility: [facility] Address: [address] [place] [address] Performed By: #### 2 4321-2, ####[facility] LABCLIA [id number] [place] [address] [place] Chloride [Moles/Vol] 104 mmol/L Normal 98-107 [facility] Comment on above: Order Comment: Speci men Type: BLOOD SPECIMENOrdering Facility: [facility] Address: [address] [place] [address] Performed By: #### 2 4321-2, ####[facility] LABCLIA [id number] [place] [id number] [place] CO2 [Moles/Vol] 19 mmol/L Low 22-30 [facility] Comment on above: Order Comment: Speci men Type: BLOOD SPECIMENOrdering Facility: [facility] Address: [address] [place] [address] Performed By: #### 2 4321-2, ####[facility] LABCLIA [id number] [place] [id number] [place] Creatinine [Mass/Vol] 0.97 mg/dL Normal 0.73-1.22 [facility] Comment on above: Order Comment: Wes guerin Type: BLOOD SPECIMENOrdering Facility: [facility] Address: [address] [place] [address] Performed By: #### 2 4321-2, ####[facility] LABCLIA [id number] [place] [address] [place] Creatinine and Glomerular filtration rate.predicted panel (S/P/Bld) 85 mL/min/1.73m??? Normal >=60 [facility] Comment on above: Order Comment: Wes guerin Type: BLOOD SPECIMENOrdering Facility: [facility] Address: [address] [place] [address] Result Comment: Elvia mated Glomerular Filtration Rate (eGFR) is calculated using the 2020 CKD-EPI creatinine equation. This equation utilizes serum creatinine, sex, and age as parameters. The creatinine assay has traceable calibration to isotope dilution-mass spectrometry. Refer to KDIGO guidelines for clinical interpretation. In patients with unstable renal function, e.g. those with acute kidney injury, the eGFR may not accurately reflect actual GFR. Performed By: #### 2 4321-2, ####[facility] LABCLIA [id number] [place] [address] [place] Glucose [Mass/Vol] 163 mg/dL High 74-99 [facility] Comment on above: Order Comment: Wes guerin Type: BLOOD SPECIMENOrdering Facility: [facility] Address: [address] [place] [address] Result Comment: The [place] Diabetes [employer] (ADA) provides guidance for cutoff values for fasting glucose and random glucose. The ADA defines fasting as no caloric intake for at least 8 hours. Fasting plasma glucose results between 100 to 125 mg/dL indicate increased risk for diabetes (prediabetes).Fasting plasma glucose results greater than or equal to 126 mg/dL meet the criteria for diagnosis of diabetes. In the absence of unequivocal hyperglycemia, results should be confirmed by repeat testing. In a patient with classic symptoms of hyperglycemia or hyperglycemic crisis, random plasma glucose results greater than or equal to 200 mg/dL meet the criteria for diagnosis of diabetes.Reference: Standards of Medical Care in Diabetes 2016, [place] [employer]. Diabetes Care. 2016.39(Suppl 1). Performed By: #### 2 432-2, ####[facility] LABCLIA [id number] [address] [address] [place] Potassium [Moles/Vol] 4.4 mmol/L Normal 3.7-5.1 [facility] Comment on above: Order Comment: Speci men Type: BLOOD SPECIMENOrdering Facility: [facility] Address: [address] [place] [address] Performed By: #### 2 4322, ####[facility] LABIA [id number] [place] [id number] [place] Sodium [Moles/Vol] 137 mmol/L Normal 136-144 [facility] Comment on above: Order Comment: Speci men Type: BLOOD SPECIMENOrdering Facility: [facility] Address: [address] [place], [place] [address] Performed By: #### 2 2, ####[facility] LABIA [id number] [place] [address] [place] Urea nitrogen [Mass/Vol] 26 mg/dL High 9-24 [facility] Comment on above: Order Comment: Speci men Type: BLOOD SPECIMENOrdering Facility: [facility] Address: [address] [place] [address] Performed By: #### 2 2, ####[facility] LABIA [id number] [address] [address] [place] CARD CATH DIAGNOSTICon 06-15 CARD CATH DIAGNOSTIC Normal [facility] CASE MANAGEMon 06-15-2024 CASE MANAGEM Normal [facility] CONSULT PROGon 06-15-2024 CONSULT PROG Normal [facility] Magnesium SerPl-mCncon 06-15 Magnesium [Mass/Vol] 2.0 mg/dL Normal 1.7-2.3 [facility] Comment on above: Order Comment: Speci men Type: BLOOD SPECIMENOrdering Facility: [facility] Address: [address] [place] [address] Performed By: #### 2 4321-2, ####[facility] LABCLIA [id number] [facility] [place] [address] [place] PT EDon 06-15-2024 PT ED Normal [facility] Basic metabolic 2000 panelon 06-14-2024 Anion gap [Moles/Vol] 12 mmol/L Normal 8-15 [facility] Comment on above: Order Comment: Speci men Type: BLOOD SPECIMENOrdering Facility: [facility] Address: [address] [place] [address] Performed By: #### 2 4321-2, ####[facility] LABCLIA [id number] [facility] [place] [address] [place] Calcium [Mass/Vol] 9.0 mg/dL Normal 8.5-10.2 [facility] Comment on above: Order Comment: Speci men Type: BLOOD SPECIMENOrdering Facility: [facility] Address: [address] [place] [address] Performed By: #### 2 4321-2, ####[facility] LABCLIA [id number] [facility]ICD AVENUEKAISER S[facility] [place] [address] [place] Chloride [Moles/Vol] 106 mmol/L Normal 98-107 [facility] Comment on above: Order Comment: Speci men Type: BLOOD SPECIMENOrdering Facility: [facility] Address: [address] [place] [address] Performed By: #### 2 4321-2, ####[facility] LABCLIA [id number] [address] [facility]OSPITALLID AVENUEDESK [address] [address] [place] CO2 [Moles/Vol] 22 mmol/L Normal 22-30 [facility] Comment on above: Order Comment: Speci men Type: BLOOD SPECIMENOrdering Facility: [facility] Address: [address] [place] [address] Performed By: #### 2 43206-29, ####[facility] LABCLIA [id number] [place] [address] [place] Creatinine [Mass/Vol] 0.96 mg/dL Normal 0.73-1.22 [facility] Comment on above: Order Comment: Speci men Type: BLOOD SPECIMENOrdering Facility: [facility] Address: [address] [place] [address] Performed By: #### 2 4320-07, ####[facility] LABIA [id number] [place] [address] [place] Creatinine and Glomerular filtration rate.predicted panel (S/P/Bld) 86 mL/min/1.73m??? Normal >=60 [facility] Comment on above: Order Comment: Speci men Type: BLOOD SPECIMENOrdering Facility: [facility] Address: [address] [place] [address] Result Comment: Elvia mated Glomerular Filtration Rate (eGFR) is calculated using the 2020 CKD-EPI creatinine equation. This equation utilizes serum creatinine, sex, and age as parameters. The creatinine assay has traceable calibration to isotope dilution-mass spectrometry. Refer to KDIGO guidelines for clinical interpretation. In patients with unstable renal function, e.g. those with acute kidney injury, the eGFR may not accurately reflect actual GFR. Performed By: #### 2 432-2, ####[facility] LABIA [id number] [place] [address] [place] Glucose [Mass/Vol] 119 mg/dL High 74-99 [facility] Comment on above: Order Comment: Speci men Type: BLOOD SPECIMENOrdering Facility: [facility] Address: [address] [place] [address] Result Comment: The [place] Diabetes Association (ADA) provides guidance for cutoff values for fasting glucose and random glucose. The ADA defines fasting as no caloric intake for at least 8 hours. Fasting plasma glucose results between 100 to 125 mg/dL indicate increased risk for diabetes (prediabetes).Fasting plasma glucose results greater than or equal to 126 mg/dL meet the criteria for diagnosis of diabetes. In the absence of unequivocal hyperglycemia, results should be confirmed by repeat testing. In a patient with classic symptoms of hyperglycemia or hyperglycemic crisis, random plasma glucose results greater than or equal to 200 mg/dL meet the criteria for diagnosis of diabetes.Reference: Standards of Medical Care in Diabetes 2016, [place] [employer]. Diabetes Care. 2016.39(Suppl 1). Performed By: #### 2 4320-07, ####[facility] LABCLIA [id number] [place] [address] [place] Potassium [Moles/Vol] 4.4 mmol/L Normal 3.7-5.1 [facility] Comment on above: Order Comment: Speci men Type: BLOOD SPECIMENOrdering Facility: [facility] Address: [address] [place] [address] Performed By: #### 2 4320-07, ####[facility] LABCLIA [id number] [place] [address] [place] Sodium [Moles/Vol] 140 mmol/L Normal 136-144 [facility] Comment on above: Order Comment: Rubiai men Type: BLOOD SPECIMENOrdering Facility: [facility] Address: [address] [place] [address] Performed By: #### 2 4320-07, ####[facility] LABCLIA [id number] [place] [id number] [place] Urea nitrogen [Mass/Vol] 24 mg/dL Normal 9-24 [facility] Comment on above: Order Comment: Speci men Type: BLOOD SPECIMENOrdering Facility: [facility] Address: [address] [place] [address] Performed By: #### 2 4320-07, ####[facility] LABCLIA [id number] [place] [address] [place] CASE MGT INIT ASSESon 2023 CASE MGT INIT ASSES Normal [facility] CONFIRM BLOOD TYPEon 024 ABO A Normal [facility] Comment on above: Order Comment: Speci men Type: BLOOD SPECIMENOrdering Facility: [facility] Address: [address] [place] [address] Performed By: #### C ONABO ####[facility] BLOOD BANKCLIA [id number] [place] [address] [place] Rh Nom (Bld) Positive Normal [facility] Comment on above: Order Comment: Speci men Type: BLOOD SPECIMENOrdering Facility: [facility] Address: [address] [place] [address] Performed By: #### C ONABO ####[facility] BLOOD BANKIA [id number] [place] [address] [place] CONSULTon 06-14-2024 CONSULT Normal [facility] CONSULT PROGon 06-14-2024 CONSULT PROG Normal [facility] CTA ABD/PELV W IVCONon 06-14 CTA ABD/PELV W IVCON Normal [facility] CTA CHEST (GATED) W IVCONon 06-14-2024 CTA CHEST (GATED) W IVCON Normal [facility] [id number] 06-14-2024 ECG01 Normal [facility] Magnesium SerPl-mCncon 06-14 Magnesium [Mass/Vol] 2.1 mg/dL Normal 1.7-2.3 [facility] Comment on above: Order Comment: Speci men Type: BLOOD SPECIMENOrdering Facility: [facility] Address: [address] [place] [address] Performed By: #### 2 4321-2, 08804-3 ####[facility] LABCLIA [id number] [place] [address] [place] Bacteria Bld Culton 06-13-20 24 Bacteria identified Cx Nom (Bld) CULTURE, BLOOD: No growth 5 days Normal [facility] Comment on above: Performed By: #### 6 00-7 ####[facility] LABCLIA [id number] [place] [address] [place] Bacteria identified Cx Nom (Bld) CULTURE, BLOOD: No growth 5 days Normal [facility] Comment on above: Performed By: #### 6 00-7 ####[facility] LABCLIA [id number] [place] [address] [place] CBC W Auto Differential pane l (Bld)on 06-13-2024 Basophils (Bld) [#/Vol] 0.06 10*3/uL Normal <0.11 [facility] Comment on above: Order Comment: Speci men Type: BLOOD SPECIMENOrdering Facility: [facility] Address: [address] [place] [address] Performed By: #### 5 7021-8, 41664-5 ####[facility] LABCLIA [id number] [address] [place] Basophils/100 WBC (Bld) 1.0 % Normal [facility] Comment on above: Order Comment: Speci men Type: BLOOD SPECIMENOrdering Facility: [facility] Address: [address] [place] [address] Performed By: #### 5 7021-8, 93607-0 ####[facility] LABCLIA [id number] [place] [address] [place] Differential cell count method Nom (Bld) Auto Normal [facility] Comment on above: Order Comment: Speci men Type: BLOOD SPECIMENOrdering Facility: [facility] Address: [address] [place] [address] Performed By: #### 5 7021-8, 48143-5 ####[facility] LABCLIA [id number] [place] [address] [place] Eosinophils (Bld) [#/Vol] 0.19 10*3/uL Normal <0.46 [facility] Comment on above: Order Comment: Speci men Type: BLOOD SPECIMENOrdering Facility: [facility] Address: [address] [place] [address] Performed By: #### 5 7021-8, 99623-3 ####[facility] LABCLIA [id number] [place] [address] [place] Eosinophils/100 WBC (Bld) 3.2 % Normal [facility] Comment on above: Order Comment: Speci men Type: BLOOD SPECIMENOrdering Facility: [facility] Address: [address] [place] [address] Performed By: #### 5 7021-8, 86781-3 ####[facility] LABCLIA [id number] [place] [address] [place] Erythrocyte distribution width (RBC) [Ratio] 15.6 % High 11.5-15.0 [facility] Comment on above: Order Comment: Speci men Type: BLOOD SPECIMENOrdering Facility: [facility] Address: [address] [place] [address] Performed By: #### 5 7021-8, 47181-9 ####[facility] LABCLIA [id number] [place] [address] [place] Hematocrit (Bld) [Volume fraction] 43.8 % Normal 39.0-51.0 [facility] Comment on above: Order Comment: Speci men Type: BLOOD SPECIMENOrdering Facility: [facility] Address: [address] [place] [address] Performed By: #### 5 7021-8, 21772-5 ####[facility] LABCLIA [id number] [place] [address] [place] Hemoglobin (Bld) [Mass/Vol] 14.4 g/dL Normal 13.0-17.0 [facility] Comment on above: Order Comment: Speci men Type: BLOOD SPECIMENOrdering Facility: [facility] Address: [address] [place] [address] Performed By: #### 5 7021-8, 60361-4 ####[facility] LABCLIA [id number] [facility] [place] [place] [address] [place] Immature granulocytes (Bld) [#/Vol] 0.04 10*3/uL Normal <0.10 [facility] Comment on above: Order Comment: Speci men Type: BLOOD SPECIMENOrdering Facility: [facility] Address: [address] [place] [address] Performed By: #### 5 7021-8, 89842-1 ####[facility] LABCLIA [id number] [place] [address] [place] Immature granulocytes/100 WBC (Bld) 0.7 % Normal [facility] Comment on above: Order Comment: Speci men Type: BLOOD SPECIMENOrdering Facility: [facility] Address: [address] [place] [address] Performed By: #### 5 7021-8, 72453-2 ####[facility] LABCLIA [id number] [place] [address] [place] Lymphocytes (Bld) [#/Vol] 0.68 10*3/uL Low 1.00-4.00 [facility] Comment on above: Order Comment: Speci men Type: BLOOD SPECIMENOrdering Facility: [facility] Address: [address] [place] [address] Performed By: #### 5 7021-8, 15215-3 ####[facility] LABCLIA [id number] [place] [address] [place] Lymphocytes/100 WBC (Bld) 11.4 % Normal [facility] Comment on above: Order Comment: Speci men Type: BLOOD SPECIMENOrdering Facility: [facility] Address: [address] [place] [address] Performed By: #### 5 7021-8, 03895-1 ####[facility] LABIA [id number] [place] [address] [place] MCH (RBC) [Entitic mass] 31.4 pg Normal 26.0-34.0 [facility] Comment on above: Order Comment: Speci men Type: BLOOD SPECIMENOrdering Facility: [facility] Address: [address] [place] [address] Performed By: #### 5 7021-8, 43561-2 ####[facility] LABIA [id number] [place] [address] [place] MCHC (RBC) [Mass/Vol] 32.9 g/dL Normal 30.5-36.0 [facility] Comment on above: Order Comment: Speci men Type: BLOOD SPECIMENOrdering Facility: [facility] Address: [address] [place] [address] Performed By: #### 5 7021-8, 01330-0 ####[facility] LABIA [id number] [place] [address] [place] MCV (RBC) [Entitic vol] 95.6 fL Normal 80.0-100.0 [facility] Comment on above: Order Comment: Speci men Type: BLOOD SPECIMENOrdering Facility: [facility] Address: [address] [place] [address] Performed By: #### 5 7021-8, 41860-9 ####[facility] LABIA [id number] [place] [address] [place] Monocytes (Bld) [#/Vol] 0.51 10*3/uL Normal <0.87 [facility] Comment on above: Order Comment: Speci men Type: BLOOD SPECIMENOrdering Facility: [facility] Address: [address] [place], [place] [address] Performed By: #### 5 7021-8, 75575-0 ####[facility] LABCLIA [id number] [place] [address] [place] Monocytes/100 WBC (Bld) 8.6 % Normal [facility] Comment on above: Order Comment: Speci men Type: BLOOD SPECIMENOrdering Facility: [facility] Address: [address] [place] [address] Performed By: #### 5 7021-8, 79690-6 ####[facility] LABCLIA [id number] [place] [address] [place] Neutrophils (Bld) [#/Vol] 4.47 10*3/uL Normal 1.45-7.50 [facility] Comment on above: Order Comment: Speci men Type: BLOOD SPECIMENOrdering Facility: [facility] Address: [address] [place] [address] Performed By: #### 5 7021-8, 55309-7 ####[facility] LABCLIA [id number] [place] [address] [place] Neutrophils/100 WBC (Bld) 75.1 % Normal [facility] Comment on above: Order Comment: Speci men Type: BLOOD SPECIMENOrdering Facility: [facility] Address: [address] [place] [address] Performed By: #### 5 7021-8, 72614-7 ####[facility] LABCLIA [id number] [place] [address] [place] Nucleated RBC (Bld) [#/Vol] 10*3/uL Normal <0.01 [facility] Comment on above: Order Comment: Speci men Type: BLOOD SPECIMENOrdering Facility: [facility] Address: [address] [place] [address] Performed By: #### 5 7021-8, 78715-2 ####[facility] LABCLIA [id number] [place] [address] [place] Nucleated RBC/100 WBC (Bld) [Ratio] 0.0 /100 WBC Normal [facility] Comment on above: Order Comment: Speci men Type: BLOOD SPECIMENOrdering Facility: [facility] Address: [address] [place] [address] Performed By: #### 5 7021-8, 06649-5 ####[facility] LABIA [id number] [place] [address] [place] Platelet mean volume (Bld) [Entitic vol] 9.5 fL Normal 9.0-12.7 [facility] Comment on above: Order Comment: Speci men Type: BLOOD SPECIMENOrdering Facility: [facility] Address: [address] [place] [address] Performed By: #### 5 7021-8, 92857-4 ####[facility] LABIA [id number] [place] [address] [place] Platelets (Bld) [#/Vol] 199 10*3/uL Normal 150-400 [facility] Comment on above: Order Comment: Speci men Type: BLOOD SPECIMENOrdering Facility: [facility] Address: [address] [place] [address] Performed By: #### 5 7021-8, 44732-4 ####[facility] LABIA [id number] [place] [address] [place] RBC (Bld) [#/Vol] 4.58 10*6/uL Normal 4.20-6.00 [facility] Comment on above: Order Comment: Speci men Type: BLOOD SPECIMENOrdering Facility: [facility] Address: [address] [place] [address] Performed By: #### 5 7021-8, 14841-7 ####[facility] LABIA [id number] [place] [address] [place] WBC (Bld) [#/Vol] 5.95 10*3/uL Normal 3.70-11.00 [facility] Comment on above: Order Comment: Speci men Type: BLOOD SPECIMENOrdering Facility: [facility] Address: [address] [place] [address] Performed By: #### 5 7021-8, 86587-7 ####[facility] LABCLIA [id number] [place] [address] [place] CNOVon 06-13-2024 CNOV Normal [facility] CONSULTon 06-13-2024 CONSULT Normal [facility] Comprehensive metabolic 2000 panelon 06-13-2024 Albumin [Mass/Vol] 4.3 g/dL Normal 3.9-4.9 [facility] Comment on above: Order Comment: Speci men Type: BLOOD SPECIMENOrdering Facility: [facility] Address: [address] [place] [address] Performed By: #### 2 4323-8, 73338-7, 92398-3 ####[facility] LABCLIA [id number] [place] [address] [place] ALP [Catalytic activity/Vol] 77 U/L Normal 38-113 [facility] Comment on above: Order Comment: Speci men Type: BLOOD SPECIMENOrdering Facility: [facility] Address: [address] [place] [address] Performed By: #### 2 4323-8, 38569-6, 06159-9 ####[facility] LABCLIA [id number] [place] [id number] [place] ALT [Catalytic activity/Vol] 39 U/L Normal 10-54 [facility] Comment on above: Order Comment: Speci men Type: BLOOD SPECIMENOrdering Facility: [facility] Address: [address] [place] [address] Performed By: #### 2 4323-8, 17030-4, 79634-3 ####[facility] LABCLIA [id number] [address] [address] [place] Anion gap [Moles/Vol] 13 mmol/L Normal 8-15 [facility] Comment on above: Order Comment: Speci men Type: BLOOD SPECIMENOrdering Facility: [facility] Address: [address] [place] [address] Performed By: #### 2 4323-8, 28175-7, 38461-4 ####[facility] LABCLIA [id number] [place] [address] [place] AST [Catalytic activity/Vol] 31 U/L Normal 14-40 [facility] Comment on above: Order Comment: Speci men Type: BLOOD SPECIMENOrdering Facility: [facility] Address: [address] [place] [address] Performed By: #### 2 4323-8, 27720-9, 26114-7 ####[facility] LABCLIA [id number] [place] [address] [place] Bilirubin [Mass/Vol] 0.3 mg/dL Normal 0.2-1.3 [facility] Comment on above: Order Comment: Speci men Type: BLOOD SPECIMENOrdering Facility: [facility] Address: [address] [place] [address] Performed By: #### 2 4323-8, 55217-7, 72863-4 ####[facility] LABCLIA [id number] [place] [address] [place] Calcium [Mass/Vol] 9.2 mg/dL Normal 8.5-10.2 [facility] Comment on above: Order Comment: Speci men Type: BLOOD SPECIMENOrdering Facility: [facility] Address: [address] [place] [address] Performed By: #### 2 4323-8, 04151-1, 33805-7 ####[facility] LABCLIA [id number] [place] [address] [place] Chloride [Moles/Vol] 105 mmol/L Normal 98-107 [facility] Comment on above: Order Comment: Speci men Type: BLOOD SPECIMENOrdering Facility: [facility] Address: [address] [place] [address] Performed By: #### 2 4323-8, 78881-4, 98212-9 ####[facility] LABCLIA [id number] [place] [address] [place] CO2 [Moles/Vol] 21 mmol/L Low 22-30 [facility] Comment on above: Order Comment: Speci men Type: BLOOD SPECIMENOrdering Facility: [facility] Address: [address] [place] [address] Performed By: #### 2 4323-8, 30346-3, 27521-5 ####[facility] LABCLIA [id number] [place] [address] [place] Creatinine [Mass/Vol] 1.02 mg/dL Normal 0.73-1.22 [facility] Comment on above: Order Comment: Speci men Type: BLOOD SPECIMENOrdering Facility: [facility] Address: [address] [place] [address] Performed By: #### 2 4323-8, 90468-4, 14314-1 ####[facility] LABIA [id number] [place] [address] [place] Creatinine and Glomerular filtration rate.predicted panel (S/P/Bld) 80 mL/min/1.73m??? Normal >=60 [facility] Comment on above: Order Comment: Speci men Type: BLOOD SPECIMENOrdering Facility: [facility] Address: [address] [place] [address] Result Comment: Elvia mated Glomerular Filtration Rate (eGFR) is calculated using the 2020 CKD-EPI creatinine equation. This equation utilizes serum creatinine, sex, and age as parameters. The creatinine assay has traceable calibration to isotope dilution-mass spectrometry. Refer to KDIGO guidelines for clinical interpretation. In patients with unstable renal function, e.g. those with acute kidney injury, the eGFR may not accurately reflect actual GFR. Performed By: #### 2 4323-8, , 56340-4 ####[facility] LABCLIA [id number] [facility] [address] [address] [place] Glucose [Mass/Vol] 131 mg/dL High 74-99 [facility] Comment on above: Order Comment: Wes guerin Type: BLOOD SPECIMENOrdering Facility: [facility] Address: [address] [place] [address] Result Comment: The [place] Diabetes Association (ADA) provides guidance for cutoff values for fasting glucose and random glucose. The ADA defines fasting as no caloric intake for at least 8 hours. Fasting plasma glucose results between 100 to 125 mg/dL indicate increased risk for diabetes (prediabetes).Fasting plasma glucose results greater than or equal to 126 mg/dL meet the criteria for diagnosis of diabetes. In the absence of unequivocal hyperglycemia, results should be confirmed by repeat testing. In a patient with classic symptoms of hyperglycemia or hyperglycemic crisis, random plasma glucose results greater than or equal to 200 mg/dL meet the criteria for diagnosis of diabetes.Reference: Standards of Medical Care in Diabetes 2016, [place] [employer]. Diabetes Care. 2016.39(Suppl 1). Performed By: #### 2 4323-8, , 29008-5 ####[facility] LABCLIA [id number] [facility] [address] [address] [place] Potassium [Moles/Vol] 4.4 mmol/L Normal 3.7-5.1 [facility] Comment on above: Order Comment: Wes guerin Type: BLOOD SPECIMENOrdering Facility: [facility] Address: [address] [place] [address] Performed By: #### 2 4323-8, , 15015-4 ####[facility] LABCLIA [id number] [facility] [address] [address] [place] Protein [Mass/Vol] 7.2 g/dL Normal 6.3-8.0 [facility] Comment on above: Order Comment: Speci men Type: BLOOD SPECIMENOrdering Facility: [facility] Address: [address] [place] [address] Performed By: #### 2 4323-8, , 45277-8 ####[facility] LABCLIA [id number] [place] [id number] [place] Sodium [Moles/Vol] 139 mmol/L Normal 136-144 [facility] Comment on above: Order Comment: Speci men Type: BLOOD SPECIMENOrdering Facility: [facility] Address: [address] [place] [address] Performed By: #### 2 4323-8, , 05298-6 ####[facility] LABCLIA [id number] [place] [address] [place] Urea nitrogen [Mass/Vol] 24 mg/dL Normal 9-24 [facility] Comment on above: Order Comment: Speci men Type: BLOOD SPECIMENOrdering Facility: [facility] Address: [address] [place] [address] Performed By: #### 2 4323-8, , 24327-9 ####[facility] LABIA [id number] [place] [address] [place] ECG COMPLETEon 06-13-2024 ECG COMPLETE Normal [facility] ECG COMPLETE Normal [facility] HISTORY PHYSICALon HISTORY PHYSICAL Normal [facility] HbA1c (Bld)on 06-13-2024 Average glucose Estimated from glycated hemoglobin (Bld) [Mass/Vol] 186 mg/dL Normal [facility] Comment on above: Order Comment: Speci men Type: BLOOD SPECIMENOrdering Facility: [facility] Address: [address] [place] [address] Result Comment: eAG: (Estimated average glucose) is a calculated value from HgbA1c and is customer retention representative of the average blood glucose level in the last 2-3 month period. Performed By: #### 5 7021-8, 69338-3 ####[facility] LABCLIA [id number] [place] [address] [place] HbA1c (Bld) [Mass fraction] 8.1 % High 4.3-5.6 [facility] Comment on above: Order Comment: Speci men Type: BLOOD SPECIMENOrdering Facility: [facility] Address: [address] [place] [address] Result Comment: [place] Diabetes Association guidelines indicate that patients with HgbA1c in the range 5.7-6.4% are at increased risk for development of diabetes, and intervention by lifestyle modification may be beneficial. HgbA1c greater or equal to 6.5% is considered diagnostic of diabetes. Performed By: #### 5 7021-8, 55289-7 ####[facility] LABIA [id number] [place] [address] [place] Magnesium [facility] 06-13 Magnesium [Mass/Vol] 2.0 mg/dL Normal 1.7-2.3 [facility] Comment on above: Order Comment: Rubiai men Type: BLOOD SPECIMENOrdering Facility: [facility] Address: [address] [place] [address] Performed By: #### 2 4323-8, 40100-5, 79551-4 ####[facility] LABIA [id number] [place] [address] [place] NT-proBNP SerPl-ncon 06-13 Natriuretic peptide.B prohormone N-Terminal [Mass/Vol] 643 pg/mL High <125 [facility] Comment on above: Order Comment: Rubiai men Type: BLOOD SPECIMENOrdering Facility: [facility] Address: [address] [place] [address] Performed By: #### 2 4323-8, 79584-7, 35919-2 ####[facility] LABIA [id number] [address] [place] PT panel Coag (PPP)on 2023 INR Coag (PPP) [Relative time] 1.1 {INR} Normal 0.9-1.3 [facility] Comment on above: Order Comment: Wes guerin Type: BLOOD SPECIMENOrdering Facility: [facility] Address: [address] [place] [address] Result Comment: Mere min K Antagonist (VKA) Therapeutic Range: INR 2 to 3 (Target INR of 2.5)Note: For patients treated with VKA drugs, such as warfarin, the [place] [employer] 2012 Guideline recommends a therapeutic INR range of 2 to 3 (target INR of 2.5). This recommendation includes high-risk patients with antiphospholipid syndrome with previous arterial or venous thromboembolism, current-generation mechanical or bioprosthetic aortic heart valve replacement.Note: Patients with mechanical aortic valve replacement and additional risk factors for thromboembolic events (atrial fibrillation, previous thromboembolism, LV dysfunction, hypercoagulable conditions) or an older generation mechanical AVR (i.e., ball in-Cage) or any mechanical MVR should have a INR therapeutic range of 2.5 to 3.5 (target INR of 3).Tara GH, et al. Chest 2012, 141:7S-47SNishimura RA, et al. [facility] 2017, 70: 252-289 Performed By: #### 3 4528-0 ####[facility] LABCLIA [id number] [place] [address] [place] PT Coag (PPP) [Time] 11.7 s Normal 9.7-13.0 [facility] Comment on above: Order Comment: Wes guerin Type: BLOOD SPECIMENOrdering Facility: [facility] Address: [address] [place] [id number] Performed By: #### 3 4528-0 ####[facility] LABIA [id number] [place] [address] [place] TYPE + SCREENon 06-13-2024 ABO A Normal [facility] Comment on above: Order Comment: Wes guerin Type: BLOOD SPECIMENOrdering Facility: [facility] Address: [address] [place], [place] [address] Performed By: #### T SCR ####CC MAIN BLOOD BANKCLIA [id number] [place] [id number] [place] Rh Nom (Bld) Positive Normal [facility] Comment on above: Order Comment: Speci men Type: BLOOD SPECIMENOrdering Facility: [facility] Address: [address] [place] [address] Performed By: #### T SCR ####CC MAIN BLOOD BANKCLIA [id number] [place] [address] [place] TYPE AND SCREEN EXPIRATION 06/16/2024 23:59 Normal [facility] Comment on above: Order Comment: Speci men Type: BLOOD SPECIMENOrdering Facility: [facility] Address: [address] [place] [address] Performed By: #### T SCR ####CC MAIN BLOOD BANKCLIA [id number] [place] [id number] [place] XR CHEST 2V FRONTAL/LATon XR CHEST 2V FRONTAL/LAT Normal [facility] 36on 06-06-2024 36 Rx sent [facility] [address] Mckay bb office [facility]. He was instructed by Dr Jackson to continue taking the antibiotic until he goes to [facility]. He have enough for 4 more days not enough till his 06/13 appt at the [facility] CNCOon 05-29-2024 CNCO Letter Text Normal [facility] CNPNon 05-29-2024 CNPN Normal [facility] Follow-Upon 05-19-2024 Follow-Up [id number] Judson Phillips 1955 M Date Provider Department Center 05/19/2024 Ada[facility]QU[facility]EN [facility] Family History Problem Relation Age of Onset Coronary artery disease Mother Coronary artery disease Father Family Status - Relation Status Age at Mother Father Level of Service:01363 ND OFFICE/OUTPATIENT ESTABLISHED MOD MDM 30 MIN [facility] Follow-Upon 05-12-2024 Follow-Up [id number] Judson Phillips E 1955 M Date Provider Department Center 05/12/2024 Ada-QUYEN [facility] Family History Problem Relation Age of Onset Coronary artery disease Mother Coronary artery disease Father Family Status - Relation Status Age at Mother Father Level of Service:73454 ND OFFICE/OUTPATIENT ESTABLISHED LOW MDM 20 MIN [facility] Follow-Upon 03-09-2024 Follow-Up [id number] Judson Phillips ey E 1955 M Date Provider Department Center 03/09/2024 287-DEEPQUYEN [place] C[facility] Family History Problem Relation Age of Onset Coronary artery disease Mother Coronary artery disease Father Family Status - Relation Status Age at Mother Father Level of Service:86146 ND OFFICE/OUTPATIENT ESTABLISHED LOW MDM 20 MIN [facility] Telephoneon 01-11-2024 Telephone [id number] Judson Phillips ey E 1955 M Date Provider Department [place] 01/11/2024 [facility] Family History Problem Relation Age of Onset Coronary artery disease Mother Coronary artery disease Father Family Status - Relation Status Age at Mother Father [facility] Office Visiton 12-17-2023 Follow-up visit [id number] Judson Phillips E 1955 M Date Provider Department [place] 12/17/2023 [facility] Family History Problem Relation Age of Onset Coronary artery disease Mother Coronary artery disease Father Family Status - Relation Status Age at Mother Father Level of Service:22588 ND POSTOP FOLLOW UP VISIT RELATED TO ORIGINAL PX [facility] HPon 12-10-2023 HP History Of Present I marcmartha Phillips is a 68 y.o. male presenting with chf. Past Medical History He has a past medical history of Anxiety, Arthritis, BPH (benign prostatic hyperplasia), Coronary artery disease, Diabetes mellitus (CMS/HCC), HLD (hyperlipidemia), and Hypertension. Surgical History He has a past surgical history that includes Amputation (Left); Coronary artery bypass graft; Coronary stent placement; Cardiac pacemaker placement; and Cardiac catheterization. Social History He reports that he has quit smoking. His smoking use included cigarettes. He has been exposed to tobacco smoke. He has never used smokeless tobacco. He reports current alcohol use. He reports that he does not currently use drugs. Allergies Atorvastatin, Codeine phosphate, Lisinopril, Lovastatin, Metformin, and Simvastatin Medications Medications Prior to Admission Medication Sig Dispense Refill Last Dose amiodarone (Pacerone) 200 mg tablet Take 1 tablet (200 mg) by mouth once daily as directed for 14 days. (Patient taking differently: Take 200 mg by mouth in the morning.) 14 tablet 0 12/09/2023 apixaban (Eliquis) 5 mg tablet Take 1 tablet (5 mg) by mouth in the morning and at bedtime. 180 tablet 3 Past Week clopidogrel (Plavix) 75 mg tablet clopidogrel 75 mg tablet 12/09/2023 digoxin (Lanoxin) 125 MCG tablet Take 125 mcg by mouth. 12/09/2023 empagliflozin (Jardiance) 10 mg Take 1 tablet (10 mg) by mouth in the morning. 90 tablet 3 12/10/2023 folic acid (Folvite) 1 mg tablet folic acid 1 mg tablet 12/10/2023 furosemide (Lasix) 20 mg tablet Take 1 tablet (20 mg) by mouth in the morning. 30 tablet 0 12/09/2023 methotrexate 2.5 mg tablet Take 15 mg by mouth 1 (one) time per week Past Week metoprolol succinate XL (Toprol-XL) 25 mg 24 hr tablet Take 1 tablet (25 mg) by mouth in the morning. 90 tablet 3 12/09/2023 pantoprazole (ProtoNix) 40 mg EC tablet Take 40 mg by mouth before breakfast. Do not crush, chew, or split. 12/09/2023 rosuvastatin (Crestor) 20 mg tablet Take 1 tablet (20 mg) by mouth in the morning. 30 tablet 0 12/10/2023 sacubitril-valsartan (Entresto) 24-26 mg tablet Take 1 tablet by mouth in the morning and at bedtime. 60 tablet 3 12/10/2023 spironolactone (Aldactone) 25 mg tablet Take 1 tablet (25 mg) by mouth in the morning. (Patient taking differently: Take 0.5 tablets by mouth in the morning.) 30 tablet 0 12/10/2023 tamsulosin (Flomax) 0.4 mg 24 hr capsule tamsulosin 0.4 mg capsule TAKE 1 CAPSULE BY MOUTH EVERY DAY Past Week blood pressure test kit-large kit 1 kit once daily as directed. 1 kit 0 Review of Systems Physical Exam Last Recorded Vitals Blood pressure 128/77, pulse 76, resp. rate 16, SpO2 99 %. Relevant Results CHF Assessment/Plan Principal Problem: Ischemic cardiomyopathy BiV ICD Quyen Jackson MD [facility] NURSNOTEon 12-10-2023 NURSNOTE RN educated pt on d/ c instructions. RN encouraged pt to voice any questions or concerns. Pt verbalizes no questions or concerns at this time. Pt was wheeled off of unit with all of belongings. [facility] NURSNOTE Pt received CXR as per order [facility] NURSNOTE CHG wipes and betadi ne nasal swabs completed. ' [facility] Orders Onlyon 12-10-2023 Orders Only [id number] Judson Phillips 1955 M Date Provider Department Center 12/10/2023 CM [facility] VASC [facility] DE [facility] Family History Problem Relation Age of Onset Coronary artery disease Mother Coronary artery disease Father Family Status - Relation Status Age at Mother Father [facility] 29on 12-08-2023 29 Addended by: FINESSE MEDELLIN on: 12/08/2023 12:32 PM Modules accepted: Orders [facility] Follow-Upon 12-08-2023 Follow-Up [id number] Judson Phillips E 1955 M Date Provider Department Center 12/08/2023 [id number] MEDELLIN [facility] Annabella Kingston Family History Problem Relation Age of Onset Coronary artery disease Mother Coronary artery disease Father Family Status - Relation Status Age at Mother Father Level of Service:27857 ND OFFICE/OUTPATIENT ESTABLISHED MOD MDM 30 MIN [facility] Orders Onlyon 12-01-2023 Orders Only [id number] Judson Phillips E 1955 M Date Provider Department Center 12/01/2023 Odalis-SHAUNNAAXEL C VASC [facility] DE [facility] Family History Problem Relation Age of Onset Coronary artery disease Mother Coronary artery disease Father Family Status - Relation Status Age at Mother Father Normal [facility] Telephoneon 11-12-2023 Telephone [phone] AlanJudson ey E 1955 M Date Provider Department Center 11/12/2023 1987-[facility] VASC [facility] DE [facility] Family History Problem Relation Age of Onset Coronary artery disease Mother Coronary artery disease Father Family Status - Relation Status Age at Mother Father Reason for Visit and Comments: 3 week f/u post ablation [Other] Normal [facility] Telephoneon 11-11-2023 Telephone [phone] AlanJudson ey E 1955 M Date Provider Department Center 11/11/2023 1987-[facility] Family History Problem Relation Age of Onset Coronary artery disease Mother Coronary artery disease Father Family Status - Relation Status Age at Mother Father Reason for Visit and Comments: 3 week post ablation f/u [Other] Normal [facility] Telephoneon 10-28-2023 Telephone [phone] AlanJudson watson E 1955 M Date Provider Department Center 10/28/2023 1987-[facility] Family History Problem Relation Age of Onset Coronary artery disease Mother Coronary artery disease Father Family Status - Relation Status Age at Mother Father Reason for Visit and Comments: week f/u post ablation [Other] Normal [facility] Office Visiton 10-25-2023 Follow-up visit [id number] AlanJudson ey E 1955 M Date Provider Department Center 10/25/2023 QUYEN BRANCH [facility] CARD DE Heart[facility] Family History Problem Relation Age of Onset Coronary artery disease Mother Coronary artery disease Father Family Status - Relation Status Age at Mother Father Level of Service:29886 ND OFFICE/OUTPATIENT ESTABLISHED LOW MDM 20 MIN Normal [facility] ANESon 10-21-2023 ANES Patient: Giles calabrese with past medical history of CAD s/p CABG x 4 and subsequent PCI's, ischemic cardiomyopathy with an EF of 20% s/p AICD, diabetes mellitus type 2,he had undergone a stress test at that time which did not show any ischemia. Patient states that he rides his bike frequently without any chest pain or shortness of breath. 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 Global left ventricular systolic function is severely reduced. EF range is estimated at 10 % -15 %. Left ventricular wall thickness is normal. Diffuse global hypokinesis. No thrombus is identified in the left ventricle. Right Ventricle: The right ventricle is enlarged. Right ventricular systolic function appears reduced. Left Atrium: The left atrium appears enlarged. 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 -> Beta Block Use : metoprolol , not taken this morning (-) Renal; ESRD or CKD (+) GI; DMII Relevant Problems Cardio (+) Acute non-ST segment elevation myocardial infarction (CMS/HCC) (+) Atherosclerosis of coronary artery (+) Atrial fibrillation with RVR (CMS/HCC) (+) Conduction disorder of the heart (+) Essential hypertension (+) Ischemic congestive cardiomyopathy (CMS/HCC) (+) Paroxysmal atrial fibrillation (CMS/HCC) (+) Paroxysmal ventricular tachycardia (CMS/HCC) Endo (+) Type 2 diabetes mellitus (CMS/HCC) GI (+) Gastroesophageal reflux disease Pulmonary (+) COPD mixed type (CMS/HCC) Other (+) Rheumatoid arthritis ([facility]) Clinical information reviewed: Tobacco Allergies Meds Med Hx Surg Hx Fam Hx Soc Hx Physical Exam Airway Mallampati: I TM distance: >3 FB Neck ROM: full Cardiovascular - normal exam Rhythm: regular Rate: normal Dental (+) upper dentures, lower dentures Pulmonary - normal exam Breath sounds clear to auscultation Abdominal - normal exam Abdomen: soft Anesthesia Plan ASA 4 general (Discussed with patient the risk of general anesthesia such as but not limited to risk of sore throat, neurological, cardiac injury, pulmonary injury, and prolonged intubation and ) The patient is not a current smoker. Patient was not previously instructed to abstain from smoking on day of procedure. Patient did not smoke on day of procedure. intravenous induction Anesthetic plan and risks discussed with patient. Use of blood products discussed with patient who consented to blood products. Plan discussed with resident and attending. Additional Equipment Requests Normal [facility] 10-21-2023 [facility] Electrophysiology Consult Note Reason for visit: atrial fibrillation, ischemic cardiomyopathy s/p ICD HPI: Giles Phillips is a 68 y.o. year old with past medical history of CAD s/p CABG x 4 and subsequent PCI's, ischemic cardiomyopathy with an EF of 20% s/p AICD, diabetes mellitus type 2 was admitted to [facility] with atrial fibrillation with rapid ventricular rate. he was noted to be in cardiogenic shock at that time and was admitted to the ICU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 06-22-2024 Follow-up encounter Eric Alarcon [facility] Infectious Disease Comment on above: Medication Follow-up (Dalbavancin) Persistent atrial fi brillation (HCC) (Primary Dx) Start: 06-20-2024 End: 06-20-2024 ambulatory Nusrat Irby MD Work Phone: Infectious Disease Comment on above: CoPat Start Start: 06-16-2024 End: 06-16-2024 Evaluation and management of inpatient UNKNOWN PROVIDER Facility:[facility] Start: 06-16-2024 End: 06-16-2024 Evaluation and management of inpatient UNKNOWN PROVIDER Facility:[facility] Start: 06-15-2024 End: 06-15-2024 Evaluation and management of inpatient JOSE ALFREDO JACK Facility:[facility] Start: 06-14-2024 End: 06-14-2024 Evaluation and management of inpatient [facility] Work Phone: Cardiology Start: 06-13-2024 End: 06-27-2024 Evaluation and management of inpatient LAKESHA JARRETT Facility:[facility] Start: 06-13-2024 End: 06-13-2024 Subsequent hospital visit by physician [facility] Work Phone: Cardiology Comment on above: Pacemaker reprogramm ing/check [Z45.018] Start: 06-13-2024 End: 06-13-2024 Patient encounter procedure Lakesha Jarrett MD Work Phone: Cardiology Comment on above: Cardiac resynchroniz ation therapy defibrillator (DIRECTOR OF FIELD SERVICE-D) in place (Primary Dx); Infection of biventricular implantable cardioverter-defibrillator (ICD), initial encounter ([facility]); HFrEF (heart failure with reduced ejection fraction) (HCC); Cardiomyopathy, ischemic; Infection involving implantable cardioverter-defibrillator (ICD), initial encounter ([facility]) Start: 06-13-2024 End: 06-13-2024 ambulatory LAKESHA JARRETT Facility:[facility] Start: 05-29-2024 End: 05-29-2024 Telephone encounter Lakesha Jarrtet MD Work Phone: Cardiology Comment on above: Patient Update (From Dr. Darnell- Records are in Care Everywhere) Start: 05-19-2024 ambulatory [facility] Start: 05-12-2024 ambulatory [facility] Start: 04-21-2024 End: 04-21-2024 ambulatory [facility] Start: 03-09-2024 ambulatory [facility] Start: 02-03-2024 End: 02-03-2024 ambulatory LANA KAY Not Available Start: 01-11-2024 End: 01-11-2024 ambulatory [facility] Start: 12-17-2023 End: 12-17-2023 ambulatory [facility] Start: 12-10-2023 End: 12-10-2023 ambulatory [facility] Start: 12-10-2023 End: 12-10-2023 ambulatory [facility] Start: 12-08-2023 End: 12-08-2023 ambulatory [facility] Start: 11-26-2023 End: 11-27-2023 ambulatory MARLYS A [facility] Start: 11-25-2023 End: 11-27-2023 ambulatory [facility] Start: 11-23-2023 End: 11-27-2023 ambulatory MARLYS A [facility] Start: 11-18-2023 End: 11-27-2023 ambulatory [facility] Comment on above: Arrived Start: 11-16-2023 End: 11-27-2023 ambulatory MARLYS A [facility] Comment on above: Arrived Start: 11-12-2023 End: 11-27-2023 ambulatory MARLYS A [facility] Comment on above: Arrived Start: 11-11-2023 End: 11-27-2023 ambulatory MARLYS Bernal [facility] Comment on above: Arrived Start: 11-09-2023 End: 11-27-2023 ambulatory [facility] Start: 11-05-2023 End: 11-06-2023 ambulatory MARK Baird [facility] Start: 11-05-2023 End: 11-27-2023 ambulatory MRALYS Bernal [facility] Comment on above: Arrived Start: 11-04-2023 End: 11-27-2023 ambulatory MARLYS A [facility] Start: 11-02-2023 End: 11-27-2023 ambulatory MARLYS A [facility] Comment on above: Arrived Start: 11-01-2023 End: 11-01-2023 ambulatory SHAIKH LILY Not Available Start: 11-01-2023 Patient encounter procedure Yadi Thakkar GLASS INSTALLER TECHNICIAN Work Phone: [facility] Start: 10-29-2023 End: 11-27-2023 ambulatory [facility] Start: 10-28-2023 End: 11-27-2023 ambulatory [facility] Comment on above: Arrived Start: 10-26-2023 End: 10-27-2023 ambulatory [facility] Start: 10-25-2023 ambulatory [facility] Start: 10-21-2023 End: 10-27-2023 ambulatory [facility] Start: 10-21-2023 End: 10-27-2023 ambulatory [facility] Start: 10-19-2023 End: 10-27-2023 ambulatory [facility] Start: 10-14-2023 End: 10-27-2023 ambulatory [facility] Comment on above: Acute myocardial inf arction, subendocardial infarction, initial episode of care ([facility]) Start: 10-12-2023 End: 10-27-2023 ambulatory [facility] P HOUSE [facility] Comment on above: Arrived Start: 10-08-2023 End: 10-27-2023 ambulatory [facility] Comment on above: Arrived Start: 10-07-2023 End: 10-27-2023 ambulatory [facility] Comment on above: Arrived Start: 10-05-2023 End: 10-27-2023 ambulatory [facility] Comment on above: Arrived Start: 10-01-2023 End: 10-27-2023 ambulatory [facility] Comment on above: Acute myocardial inf arction, subendocardial infarction, initial episode of care ([facility]) Start: 09-30-2023 End: 10-01-2023 ambulatory [facility] Start: 09-30-2023 End: 10-27-2023 ambulatory [facility] Comment on above: Acute myocardial inf arction, subendocardial infarction, initial episode of care (CMS-HCC) Start: 09-29-2023 End: 09-29-2023 ambulatory SHAIKH LILY Not Available Start: 09-28-2023 End: 10-27-2023 ambulatory [facility] Comment on above: Arrived Start: 09-24-2023 End: 09-27-2023 ambulatory [facility] Comment on above: Acute myocardial inf arction, subendocardial infarction, initial episode of care (CMS-HCC) Start: 09-23-2023 End: 09-27-2023 [facility] Start: 09-21-2023 End: 09-27-2023 [facility] Comment on above: Acute myocardial inf arction, subendocardial infarction, initial episode of care (CMS-HCC) Start: 09-17-2023 End: 09-27-2023 [facility] Comment on above: Acute myocardial inf arction, subendocardial infarction, initial episode of care (CMS-HCC) Start: 09-16-2023 End: 09-27-2023 [facility] Start: 09-14-2023 End: 09-27-2023 [facility] Comment on above: Acute myocardial inf arction, subendocardial infarction, initial episode of care (CMS-HCC) Start: 09-10-2023 End: 09-27-2023 [facility] Comment on above: Acute myocardial inf arction, subendocardial infarction, initial episode of care (CMS-HCC) Start: 09-09-2023 End: 09-27-2023 ambulatory [facility] Comment on above: Arrived Start: 09-07-2023 End: 09-27-2023 [facility] Comment on above: Arrived Start: 09-03-2023 End: 09-27-2023 ambulatory [facility] Comment on above: Acute myocardial inf arction, subendocardial infarction, initial episode of care (CMS-HCC) Start: 09-02-2023 End: 09-27-2023 ambulatory MARK P [facility] Start: 08-31-2023 End: 09-27-2023 ambulatory [facility] P HOUSE [facility] Start: 08-27-2023 End: 09-27-2023 ambulatory [facility] Start: 08-26-2023 End: 08-27-2023 ambulatory MARK P [facility] Start: 08-24-2023 End: 08-27-2023 ambulatory MARK P HOUSE [facility] Start: 08-20-2023 End: 08-27-2023 ambulatory MARK P HOUSE [facility] Start: 08-19-2023 End: 08-27-2023 ambulatory [facility] P HOUSE [facility] Start: 08-17-2023 End: 08-27-2023 ambulatory MARK P [facility] Start: 08-16-2023 End: 08-17-2023 ambulatory MARK P DOLA Facility:[facility] Start: 08-13-2023 End: 08-27-2023 ambulatory MARK P [facility] Start: 08-12-2023 End: 08-27-2023 ambulatory MARK P [facility] Start: 08-10-2023 Clinisync Result Encounter Aiden Bautista MD Work Phone: [facility] Unsolicited Start: 08-10-2023 Clinisync Result Encounter Aiden Bautista MD Work Phone: [facility] Unsolicited Start: 08-10-2023 End: 08-27-2023 ambulatory MARK P [facility] Start: 08-09-2023 End: 08-09-2023 Office outpatient new 60 minutes Shaikh Lily BARRAGAN Work Phone: [facility] Comment on above: Essential hypertensi on ([facility]) (Primary Dx); HFrEF (heart failure with reduced ejection fraction) ([facility]); 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 ([facility]); Hyperlipidemia, unspecified hyperlipidemia type ([facility]); Other hyperlipidemia ([facility]); COPD mixed type ([facility]); Type 2 diabetes mellitus without complication, without long-term current use of insulin ([facility]); Generalized muscle ache; Encounter to establish care with new doctor Start: 08-09-2023 Gema Bautista MD Work Phone: [facility] Start: 08-09-2023 Gema Bautista MD Work Phone: [facility] Start: 08-06-2023 End: 08-27-2023 ambulatory [facility] Start: 08-05-2023 End: 08-27-2023 ambulatory [facility] Start: 08-03-2023 End: 08-27-2023 ambulatory [facility] Start: 07-30-2023 End: 08-27-2023 ambulatory [facility] Start: 07-29-2023 End: 08-27-2023 ambulatory [facility] Start: 07-27-2023 End: 07-29-2023 [facility] Comment on above: Acute myocardial inf arction, subendocardial infarction, initial episode of care ([facility]) Start: 07-23-2023 End: 07-29-2023 ambulatory [facility] Comment on above: Acute myocardial inf arction, subendocardial infarction, initial episode of care ([facility]) Start: 07-22-2023 End: 07-29-2023 ambulatory [facility] Comment on above: Arrived Start: 07-21-2023 End: 07-22-2023 ambulatory [facility] Start: 07-19-2023 End: 07-29-2023 ambulatory Zeeshan Carmichael MD Facility:[facility] Start: 07-16-2023 End: 07-29-2023 ambulatory MARK P [facility] Start: 07-15-2023 End: 07-29-2023 ambulatory MARK Baird [facility] Comment on above: Acute myocardial inf arction, subendocardial infarction, initial episode of care ([facility]) Start: 07-13-2023 End: 07-29-2023 ambulatory MARK TAM [facility] Comment on above: Acute myocardial inf arction, subendocardial infarction, initial episode of care ([facility]) Start: 07-09-2023 End: 07-29-2023 ambulatory MARK TAM [facility] Start: 07-08-2023 End: 07-29-2023 ambulatory MARK Baird [facility] Comment on above: Arrived Start: 06-01-2023 End: 06-02-2023 ambulatory Zeeshan Carmichael MD Facility:[facility] Start: 05-27-2023 End: 05-28-2023 ambulatory MARK TAM Facility:[facility] Start: 05-10-2023 End: 05-11-2023 ambulatory MARK TAM Facility:[facility] Start: 03-11-2023 End: 03-12-2023 ambulatory MARK P YONATAN Facility:[facility] Start: 02-11-2023 End: 02-12-2023 ambulatory MARK TAM Facility:[facility] Start: 02-24-2021 End: 02-24-2021 ambulatory CARSON ASHLEY Facility: Start: 03-23-2018 End: 03-24-2018 Patient encounter QUYEN JACKSON Facility:[facility] Procedures Date Procedure Procedure Detail Performing Clinician Start: 09-18-2024 Hemoglobin glycosylated a1c Maame Thakkar GLASS INSTALLER TECHNICIAN Work Phone: Start: 07-26-2024 Prgrmg dev eval impl antable subq lead dfb system [facility] Provider Start: 06-26-2024 Prgrmg dev eval impl antable subq lead dfb system Christopher Fay MD Work Phone: Start: 06-22-2024 History of coronary artery bypass grafting Hx of CABG Lakesha Jarrett MD Work Phone: Start: 06-22-2024 Antibody screen MAURA JARRETT Comment on above: Order Comment: Speci men Type: BLOOD SPECIMENOrdering Facility: [facility] Address: [address] [place] [address] Performed By: #### T SCR ####CC MAIN BLOOD BANKCLIA [id number] [address] Start: 06-18-2024 Antibody screen MAURA JARRETT Comment on above: Order Comment: Speci men Type: BLOOD SPECIMENOrdering Facility: [facility] Address: [address] [place] [address] Performed By: #### T SCR ####CC MAIN BLOOD BANKCLIA [id number] [address] Start: 06-14-2024 Echocardiography KIRSTIE JARRETT Start: 06-13-2024 Antibody screen MAURA JARRETT Comment on above: Order Comment: Speci men Type: BLOOD SPECIMENOrdering Facility: [facility] Address: [address] [place] [address] Performed By: #### T SCR ####CC MAIN BLOOD BANKCLIA [id number] [address] Start: 06-13-2024 Prgrmg dev eval impl antable subq lead dfb system [facility] [place] Provider Start: 09-30-2023 Cyclic citrullinated peptide antibody MARK TAM Comment on above: Result Comment: Interpretation-------- <3 Negative >=3 Positive Performed By: #### B MP, 1988-5, C34, 86909-2, 53393-6, 51861-8, 02332-1 #### [facility] ([id number]) [address] [place] [address], [address] [place] [address] Start: 08-10-2023 ALL CBC WITH AUTO DIFF Shaikh Lily BARRAGAN Work Phone: Start: 06-05-2023 Lipid 1996 panel - S eva or Plasma Lakesha Jarrett MD Work Phone: Plan of Treatment Date Care Activity Detail Author Start: 2030 RSV Vaccine (1 - 1-dose 75+ series) RSV Vaccine (1 - 1-dose 75+ series) [facility] Start: 06-05-2028 Lipid panel Lipid Screening [facility] Start: 11-10-2026 Screening for malignant neoplasm of colon [facility] Start: 08-21-2026 Diabetes Screening Diabetes Screening [facility] Start: 04-04-2026 Glaucoma screening Diabetes: Retinopathy Screening [facility] Start: 10-11-2025 Adult BMI Screening Adult BMI Screening [facility] Start: 10-11-2025 Tobacco Screening Tobacco Screening [facility] Start: 08-24-2025 Urine screening for protein Diabetes: Urine Protein Screening [facility] Start: 02-26-2025 Influenza vaccination Influenza Vaccine [facility] Start: 12-19-2024 Hemoglobin A1c measurement Diabetes: Hemoglobin A1C [facility] Start: 11-23-2024 End: 11-23-2024 Patient encounter procedure 11/23/2024 12:30 PM EDT Office Visit Cardiology [address] [place] [address] Tatyana Guillory, SPECIAL AGENT [employer] [address] [place] [address] AFIB Cardiology Comment on above: AFIB Start: 11-23-2024 End: 11-23-2024 ambulatory 11/23/2024 10:30 AM EDT Results Only Cardiology [address] [place] [address] AFIB Cardiology Comment on above: AFIB Start: 11-23-2024 End: 11-23-2024 Patient encounter procedure Cardiology Comment on above: DEVICE CHECK AFIB Start: 10-31-2024 Medicare Annual Wellness (AWV) Medicare Annual Wellness (AWV) [facility] Start: 09-18-2024 End: 09-18-2024 Patient encounter procedure 09/18/2024 1:40 PM EDT Office Visit [facility] [address] [place] [address] Maame Thakkar NP [address] [place] [address] 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 (CMS/HCC) (Primary Dx); Paroxysmal atrial fibrillation (CMS/HCC); Other ventricular tachycardia (CMS/HCC); Phantom limb syndrome with pain (CMS/HCC); 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); HFrEF (heart failure with reduced ejection fraction) (CMS/HCC); Essential hypertension (CMS/HCC); Persistent atrial fibrillation (HCC) (CMS/HCC); Gastroesophageal reflux disease, unspecified whether esophagitis present; Benign prostatic hyperplasia, unspecified whether lower urinary tract symptoms present; Type 2 diabetes mellitus without complication, without long-term current use of insulin (CMS/HCC); Prostate cancer screening [facility] Comment on above: 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 (CMS/HCC) (Primary Dx); Paroxysmal atrial fibrillation (CMS/HCC); Other ventricular tachycardia (CMS/HCC); Phantom limb syndrome with pain (CMS/HCC); 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); HFrEF (heart failure with reduced ejection fraction) (CMS/HCC); Essential hypertension (CMS/HCC); Persistent atrial fibrillation (HCC) (CMS/HCC); Gastroesophageal reflux disease, unspecified whether esophagitis present; Benign prostatic hyperplasia, unspecified whether lower urinary tract symptoms present; Type 2 diabetes mellitus without complication, without long-term current use of insulin (CMS/HCC); Prostate cancer screening Start: 09-11-2024 Hemoglobin A1c measurement [facility] Start: 09-04-2024 End: 09-04-2024 Telephone encounter 09/04/2024 9:00 AM EDT [facility] Infectious Disease [address] [place] [address] Prateek Howell MD [address] [place] [address] Virtual visit/telephone call. Infectious Disease Comment on above: Virtual visit/telephone call. Start: 08-03-2024 End: 08-03-2024 Patient encounter procedure Cardiology Comment on above: OUTPATIENT 4-6 WEEK DEVICE CHECK ICD hospital follow up Start: 07-31-2024 End: 07-31-2024 ambulatory Infectious Disease Comment on above: vv hospital f/u est transplant Start: 07-26-2024 End: 07-26-2024 Patient encounter procedure 07/26/2024 11:15 AM EST Appointment Cardiology [address] [place] [address] OUTPATIENT 4-6 WEEK DEVICE CHECK ICD Cardiology Comment on above: OUTPATIENT 4-6 WEEK DEVICE CHECK ICD Start: 07-14-2024 End: 07-14-2024 Patient encounter procedure 07/14/2024 10:00 AM EST Office Visit Infectious Disease [address] [id number] Sam King MD [address] [place] [address] hospital follow up Infectious Disease Comment on above: hospital follow up Start: 06-28-2024 Advance Directive Discussion Advance Directive Discussion [facility] Start: 06-22-2024 End: 06-22-2024 Insj eltrd car haroon sys tm insj dfb/pm pls gen INSERTION CORONARY SINUS/LT VENTRICULAR LEAD W/INITIAL INSERTION OF PACEMAKER/DEFIB GENERATOR Ischemic cardiomyopathy Chronic systolic CHF (congestive heart failure) (HCC) NSVT (nonsustained ventricular tachycardia) (HCC) Persistent atrial fibrillation (HCC) 06/22/2024 11:50 AM EST [facility] Start: 06-22-2024 End: 06-22-2024 Insj/rplcmt perm dfb w/trnsvns lds 1/dual chmbr INSERTION PERM IMPLANTABLE DEFIBRILLATOR SYSTEM, W/TRANSVENOUS LEAD(S) Ischemic cardiomyopathy Chronic systolic CHF (congestive heart failure) (HCC) NSVT (nonsustained ventricular tachycardia) (HCC) Persistent atrial fibrillation (HCC) 06/22/2024 11:50 AM EST [facility] Start: 06-19-2024 End: 06-19-2024 Anesthesia consultation 06/19/2024 6:30 AM EST Anesthesia Event Admitting [address] [id number] Carlton García MD [address] [place] [address] Admitting Start: 06-19-2024 End: 06-19-2024 Evaluation and management of inpatient 06/19/2024 6:30 AM EST - 06/19/2024 12:36 PM EST Surgery Admitting [address] [id number] Lui Cooper MD [address] [id number] REMOVAL OF IMPLANTABLE DEFIBRILLATOR PULSE GENERATOR ONLY Admitting Comment on above: REMOVAL OF IMPLANTABLE DEFIBRILLATOR PUL SE GENERATOR ONLY Start: 06-19-2024 End: 06-19-2024 Removal implantable defib pulse generator only REMOVAL OF IMPLANTABLE DEFIBRILLATOR PULSE GENERATOR ONLY Infection and inflammatory reaction due to cardiac device, implant, and graft, initial encounter ([facility]) Ischemic cardiomyopathy Chronic systolic CHF (congestive heart failure) ([facility]) 06/19/2024 6:30 AM EST [facility] Start: 06-19-2024 End: 06-19-2024 Rmvl1/dual chmbr impltbl dfb eltrd transvns xtrj REMOVAL ELECTRODE(S) IMPLANTABLE DEFIBRILLATOR TRANSVENOUS EXTRACTION Infection and inflammatory reaction due to cardiac device, implant, and graft, initial encounter ([facility]) Ischemic cardiomyopathy Chronic systolic CHF (congestive heart failure) ([facility]) 06/19/2024 6:30 AM EST [facility] Start: 06-15-2024 End: 06-15-2024 Cath plmt l hrt & arts w/njx & angio img s&i CORONARY ANGIO W CATH PLACE W IMAGE INJECT & INTERP W LT HEART CATH W INJECT LT VENTRGRAPHY Pre-op evaluation 06/15/2024 10:35 PM EST 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 Start: 06-15-2024 End: 06-15-2024 ambulatory 06/15/2024 7:30 AM EST Procedure Cardiology [address] [id number] Jose Alfredo Jack DO [address] [place] [address] [id number] Cardiology Comment on above: [id number] Start: 06-13-2024 End: 06-13-2024 Patient encounter procedure 06/13/2024 2:15 PM EST Appointment Cardiology [address] [place] [address] DX:AFIB Cardiology Comment on above: DX:AFIB Start: 06-13-2024 End: 06-13-2024 ambulatory 06/13/2024 12:00 PM EST Results Only Cardiology [address] [place] [address] DX:AFIB Cardiology Comment on above: DX:AFIB Start: 06-13-2024 End: 06-13-2024 Patient encounter procedure Cardiology Comment on above: DX:AFIB Start: 06-05-2024 Hepatitis B surface antibody level LDL Cholesterol [facility] Start: 06-04-2024 Adult BMI Screening Adult BMI Screening [facility] Start: 06-04-2024 Tobacco Screening Tobacco Screening [facility] Start: 02-27-2024 Covid-19 Vaccine ( season) Covid-19 Vaccine ( season) [facility] Start: 02-27-2024 Influenza vaccination [facility] Start: 11-26-2023 End: 11-26-2023 Clinical Support 11/26/2023 9:00 AM EDT Clinical Support [facility] [address] [place] [phone] [facility] Start: 11-25-2023 End: 11-25-2023 Clinical Support 11/25/2023 9:00 AM EDT Clinical Support [facility] [address] [place] [phone] [facility] Start: 11-23-2023 End: 11-23-2023 Clinical Support 11/23/2023 9:00 AM EDT Clinical Support [facility] [address] [place] [address] [facility] Start: 11-19-2023 End: 11-19-2023 Clinical Support 11/19/2023 9:00 AM EDT Clinical Support [facility] [address] [place] [address] [facility] Start: 11-18-2023 End: 11-18-2023 Clinical Support 11/18/2023 9:00 AM EDT Clinical Support [facility] [address] [place] [address] [facility] Start: 11-16-2023 End: 11-16-2023 Clinical Support 11/16/2023 9:00 AM EDT Clinical Support [facility] [address] [place] [address] [facility] Start: 11-12-2023 End: 11-12-2023 Clinical Support 11/12/2023 9:00 AM EDT Clinical Support [facility] [address] [place] [address] [facility] Start: 11-11-2023 End: 11-11-2023 Clinical Support 11/11/2023 9:00 AM EDT Clinical Support [facility] [address] [place] [address] [facility] Start: 11-09-2023 End: 11-09-2023 Clinical Support 11/09/2023 9:00 AM EDT Clinical Support [facility] [address] [place] [address] [facility] Start: 11-05-2023 End: 11-05-2023 Clinical Support 11/05/2023 9:00 AM EDT Clinical Support [facility] [address] [place] [address] [facility] Start: 11-04-2023 End: 11-04-2023 Clinical Support 11/04/2023 9:00 AM EDT Clinical Support [facility] [address] [place] [address] [facility] Start: 11-02-2023 End: 11-02-2023 Clinical Support 11/02/2023 9:00 AM EDT Clinical Support [facility] [address] [place] [address] [facility] Start: 10-28-2023 End: 10-28-2023 Clinical Support 10/28/2023 9:00 AM EDT Clinical Support [facility] [address] [place] [address] [facility] Start: 10-26-2023 End: 10-26-2023 Clinical Support 10/26/2023 8:00 AM EDT Clinical Support [facility] [address] [place] [address], [place] [address] [facility] Start: 10-22-2023 End: 10-22-2023 Clinical Support 10/22/2023 8:00 AM EDT Clinical Support [facility] [address] [place] [address] [facility] Start: 10-21-2023 End: 10-21-2023 Clinical Support 10/21/2023 8:00 AM EDT Clinical Support [facility] [address] [place] [address] [facility] Start: 10-19-2023 End: 10-19-2023 Clinical Support 10/19/2023 8:00 AM EDT Clinical Support [facility] [address] [place] [address], [place] [address] [facility] Start: 10-14-2023 End: 10-14-2023 Clinical Support 10/14/2023 8:00 AM EDT Clinical Support [facility] [address] [place] [address], [place] [address] [facility] Start: 10-12-2023 End: 10-12-2023 Clinical Support 10/12/2023 8:00 AM EDT Clinical Support [facility] [address] [place] [address], [place] [address] [facility] Start: 10-08-2023 End: 10-08-2023 Clinical Support 10/08/2023 8:00 AM EDT Clinical Support [facility] [address] [place] [address], [place] [address] [facility] Start: 10-07-2023 End: 10-07-2023 Clinical Support 10/07/2023 8:00 AM EDT Clinical Support [facility] [address] [place] [address], [place] [address] [facility] Start: 10-05-2023 End: 10-05-2023 Clinical Support 10/05/2023 8:00 AM EDT Clinical Support [facility] [address] [place] [address], [place] [address] [facility] Start: 10-01-2023 End: 10-01-2023 Clinical Support 10/01/2023 8:00 AM EDT Clinical Support [facility] [address] [place] [address] [facility] Start: 09-30-2023 End: 09-30-2023 Clinical Support 09/30/2023 8:00 AM EDT Clinical Support [facility] [address] [place] [address] [facility] Start: 09-28-2023 End: 09-28-2023 Clinical Support 09/28/2023 8:00 AM EDT Clinical Support [facility] [address] [place] [address] [facility] Start: 09-24-2023 End: 09-24-2023 Clinical Support 09/24/2023 8:00 AM EDT Clinical Support [facility] [address] [place] [address] [facility] Start: 09-23-2023 End: 09-23-2023 Clinical Support 09/23/2023 8:00 AM EDT Clinical Support [facility] [address] [place] [address] [facility] Start: 09-21-2023 End: 09-21-2023 Clinical Support 09/21/2023 8:00 AM EDT Clinical Support [facility] [address] [place] [address] [facility] Start: 09-17-2023 End: 09-17-2023 Clinical Support 09/17/2023 8:00 AM EDT Clinical Support [facility] [address] [place] [address] [facility] Start: 09-16-2023 End: 09-16-2023 Clinical Support 09/16/2023 8:00 AM EDT Clinical Support [facility] [address] [place] [address], [place] [address] [facility] Start: 09-14-2023 End: 09-14-2023 Clinical Support 09/14/2023 8:00 AM EDT Clinical Support [facility] [address] [place] [address], [place] [address] [facility] Start: 09-10-2023 End: 09-10-2023 Clinical Support 09/10/2023 8:00 AM EDT Clinical Support [facility] [address] [place] [address], [place] [address] [facility] Start: 09-09-2023 End: 09-09-2023 Clinical Support 09/09/2023 8:00 AM EDT Clinical Support [facility] [address] [place] [address], [place] [address] [facility] Start: 09-07-2023 End: 09-07-2023 Patient encounter procedure [facility] Start: 09-03-2023 End: 09-03-2023 Clinical Support 09/03/2023 8:00 AM EST Clinical Support [facility] [address] [place] [address], [place] [address] [facility] Start: 09-02-2023 End: 09-02-2023 Clinical Support 09/02/2023 8:00 AM EST Clinical Support [facility] [address] [place] [address], [place] [address] [facility] Start: 08-31-2023 End: 08-31-2023 Clinical Support 08/31/2023 8:00 AM EST Clinical Support [facility] [address] [place] [address] [facility] Start: 08-27-2023 End: 08-27-2023 Clinical Support 08/27/2023 8:00 AM EST Clinical Support [facility] [address] [place] [address] [facility] Start: 08-26-2023 End: 08-26-2023 Clinical Support 08/26/2023 8:00 AM EST Clinical Support [facility] [address] [place] [address] [facility] Start: 08-24-2023 End: 08-24-2023 Clinical Support 08/24/2023 8:00 AM EST Clinical Support [facility] [address] [place] [address], [place] [address] [facility] Start: 08-20-2023 End: 08-20-2023 Clinical Support 08/20/2023 8:00 AM EST Clinical Support [facility] [address] [place] [address], [place] [address] [facility] Start: 08-19-2023 End: 08-19-2023 Clinical Support 08/19/2023 8:00 AM EST Clinical Support [facility] [address] [place] [address], [place] [address] [facility] Start: 08-17-2023 End: 08-17-2023 Clinical Support 08/17/2023 8:00 AM EST Clinical Support [facility] [address] [place] [address], [place] [address] [facility] Start: 08-13-2023 End: 08-13-2023 Clinical Support 08/13/2023 8:00 AM EST Clinical Support [facility] [address] [place] [phone] [facility] Start: 08-12-2023 End: 08-12-2023 Clinical Support 08/12/2023 8:00 AM EST Clinical Support [facility] [address] [place] [phone] [facility] Start: 08-10-2023 End: 08-10-2023 Clinical Support 08/10/2023 8:00 AM EST Clinical Support [facility] [address] [place] [address], [place] [address] [facility] Start: 08-09-2023 End: 08-09-2023 Patient encounter procedure 08/09/2023 4:30 PM EST Office Visit [facility] [address] [place] [address] Shaikh Bautista MD [address] [place] [address] Arrived [facility] Comment on above: Arrived Start: 08-09-2023 End: 08-09-2024 Albumin, urine, random Albumin, urine, random Lab Routine Type 2 diabetes mellitus without complication, without long-term current use of insulin ([facility]) Expected: 08/09/2023 (Approximate), Expires: 08/09/2024 [facility] Comment on above: Expected: 08/09/2023 (Approximate), Expi res: 08/09/2024 Start: 08-09-2023 End: 08-09-2024 CBC W Auto Differential panel - Blood CBC and differential Lab Routine Type 2 diabetes mellitus without complication, without long-term current use of insulin (CMS/HCC) Expected: 08/09/2023 (Approximate), Expires: 08/09/2024 [facility] Comment on above: Expected: 08/09/2023 (Approximate), Expi res: 08/09/2024 Start: 08-09-2023 End: 08-09-2024 Comprehensive metabolic 2000 panel - Serum or Plasma Comprehensive metabolic panel Lab Routine Type 2 diabetes mellitus without complication, without long-term current use of insulin (CMS/HCC) Expected: 08/09/2023 (Approximate), Expires: 08/09/2024 [facility] Comment on above: Expected: 08/09/2023 (Approximate), Expi res: 08/09/2024 Start: 08-09-2023 End: 08-09-2024 Creatine kinase [Enzymatic activity/volume] in Serum or Plasma CK Lab Routine Generalized muscle ache Expected: 08/09/2023 (Approximate), Expires: 08/09/2024 [facility] Work Phone: Comment on above: Expected: 08/09/2023 (Approximate), Expi res: 08/09/2024 Start: 08-09-2023 End: 08-09-2024 Creatinine [Mass/volume] in Urine Creatinine, urine, random Lab Routine Type 2 diabetes mellitus without complication, without long-term current use of insulin (CMS/HCC) Expected: 08/09/2023 (Approximate), Expires: 08/09/2024 [facility] Comment on above: Expected: 08/09/2023 (Approximate), Expi res: 08/09/2024 Start: 08-09-2023 End: 08-09-2024 Hemoglobin A1c measurement Hemoglobin A1c Lab Routine Type 2 diabetes mellitus without complication, without long-term current use of insulin (CMS/HCC) Expected: 08/09/2023 (Approximate), Expires: 08/09/2024 [facility] Comment on above: Expected: 08/09/2023 (Approximate), Expi res: 08/09/2024 Start: 08-09-2023 End: 08-09-2024 Lipid 1996 panel - Serum or Plasma Lipid panel Lab Routine Hyperlipidemia, unspecified hyperlipidemia type (CMS/HCC) Expected: 08/09/2023 (Approximate), Expires: 08/09/2024 [facility] Comment on above: Expected: 08/09/2023 (Approximate), Expi res: 08/09/2024 Start: 08-06-2023 End: 08-06-2023 Clinical Support 08/06/2023 8:00 AM EST Clinical Support [facility] [address] [place] [address] [facility] Start: 08-05-2023 End: 08-05-2023 Clinical Support 08/05/2023 8:00 AM EST Clinical Support [facility] [address] [place] [address], [place] [address] [facility] Start: 08-03-2023 End: 08-03-2023 Clinical Support 08/03/2023 8:00 AM EST Clinical Support [facility] [address] [place] [address], [place] [address] [facility] Start: 07-30-2023 End: 07-30-2023 Clinical Support 07/30/2023 8:00 AM EST Clinical Support [facility] [address] [place] [address], [place] [address] [facility] Start: 07-29-2023 End: 07-29-2023 Clinical Support 07/29/2023 8:00 AM EST Clinical Support [facility] [address] [place] [address], [place] [address] [facility] Start: 07-27-2023 End: 07-27-2023 Clinical Support 07/27/2023 8:00 AM EST Clinical Support [facility] [address] [place] [address], [place] [address] [facility] Start: 07-23-2023 End: 07-23-2023 Clinical Support 07/23/2023 8:00 AM EST Clinical Support [facility] [address] [place] [address], [place] [address] [facility] Start: 07-22-2023 End: 07-22-2023 Clinical Support 07/22/2023 8:00 AM EST Clinical Support [facility] [address] [place] [address] [facility] Start: 07-20-2023 End: 07-20-2023 Clinical Support 07/20/2023 8:00 AM EST Clinical Support [facility] [address] [place] [address] [facility] Start: 07-16-2023 End: 07-16-2023 Clinical Support 07/16/2023 8:00 AM EST Clinical Support [facility] [address] [place] [address], [place] [address] [facility] Start: 07-15-2023 End: 07-15-2023 Clinical Support 07/15/2023 8:00 AM EST Clinical Support [facility] [address] [place] [address], [place] [address] [facility] Start: 06-28-2023 Advance Directive Discussion Advance Directive Discussion [facility] Start: 02-26-2023 Influenza vaccination [facility] Start: 2020 Abdominal aortic aneurysm screening Abdominal Aortic Aneurysm (AAA) Screen [facility] Start: 2020 Fall Risk Screening Fall Risk Screening [facility] Start: 2020 Pneumococcal Vaccine: 65+ (1 of 1 - PCV) Pneumococcal Vaccine: 65+ (1 of 1 - PCV) [facility] Start: 12-26-2017 DTaP,Tdap and Td Vaccines (2 - Td or Tdap) DTaP,Tdap and Td Vaccines (2 - Td or Tdap) [facility] Start: 12-26-2017 Urine microalbumin profile DTaP,Tdap,Td Vaccine (2 - Td or Tdap) [facility] Start: 2015 RSV Vaccine (1 - Risk 60-74 years 1-dose series) RSV Vaccine (1 - Risk 60-74 years 1-dose series) [facility] Start: 2005 Administration of varicella zoster vaccine Zoster (Shingles) Vaccine (1 of 2) [facility] [facility] Start: 2005 Shingrix Vaccine (1 of 2) Shingrix Vaccine (1 of 2) [facility] Start: 2000 Screening for malignant neoplasm of colon [facility] Start: 1985 Zoledronic acid therapy Alpha-1 Antitrypsin Deficiency Screening [facility] Start: 1974 DTaP,Tdap and Td Vaccines (1 - Tdap) DTaP,Tdap and Td Vaccines (1 - Tdap) [facility] Start: 1974 Pneumococcal Vaccine: 50+ (1 of 2 - PCV) Pneumococcal Vaccine: 50+ (1 of 2 - PCV) [facility] Start: 1974 Urine screening for protein Diabetes: Urine Protein Screening [facility] Start: 1973 Adult BMI Follow Up Plan Adult BMI Follow Up Plan [facility] Start: 1973 Annual PCP Team Chronic Disease Visit Annual PCP Team Chronic Disease Visit [facility] Start: 1973 Anxiety Screening Anxiety Screening [facility] Start: 1973 BP Controlled (<130/80) BP Controlled (<130/80) [facility] Start: 1973 Depression Screening Depression Screening [facility] Start: 1973 Hepatitis C screening Hepatitis C Screening [facility] Start: 1973 Spirometry Spirometry [facility] Start: 1967 Depression Screening Depression Screening [facility] Start: 1965 Diabetic foot examination Diabetic Foot Exam [facility] Start: 1965 Glaucoma screening [facility] Start: 1965 Hepatitis B screening Urine Albumin:Creatinine Ratio [facility] Start: 1961 Pneumococcal Vaccine: 65+ Years (1 - PCV) Pneumococcal Vaccine: 65+ Years (1 - PCV) [facility] Start: 1961 Pneumococcal Vaccine: 65+ Years (1 of 2 - PCV) Pneumococcal Vaccine: 65+ Years (1 of 2 - PCV) [facility] Start: 1960 Hemoglobin A1c measurement HbA1C [facility] Start: 1955 Hemoglobin A1c measurement Diabetes: Hemoglobin A1C [facility] Start: 1955 Medicare Annual Wellness (AWV) Medicare Annual Wellness (AWV) [facility] Start: 1955 Medicare Annual Wellness Visit Medicare Annual Wellness Visit [facility] Start: 1955 Screening for malignant neoplasm of colon [facility] CARDIAC IMPLANTABLE DEVICE CHECK CARDIAC IMPLANTABLE DEVICE CHECK PACEART Routine Pacemaker reprogramming/check 06/13/2024 1:26 PM EST [facility] CARDIAC IMPLANTABLE DEVICE CHECK CARDIAC IMPLANTABLE DEVICE CHECK PACEART Routine 06/26/2024 1:55 PM [facility] Work Phone: CARDIAC IMPLANTABLE DEVICE CHECK CARDIAC IMPLANTABLE DEVICE CHECK PACEART Routine Pacemaker reprogramming/check 07/26/2024 12:00 PM EST [facility] CARDIOPULMONARY REHABILITATION CARDIOPULMONARY REHABILITATION Cardiac Services Ordered: 07/08/2023 [facility] Comment on above: Ordered: 07/08/2023 CARDIOPULMONARY REHABILITATION CARDIOPULMONARY REHABILITATION Cardiac Services [facility] Ordered: 07/08/2023 CARDIOPULMONARY REHABILITATION CARDIOPULMONARY REHABILITATION Cardiac Services Ordered: [...] 09/30/2023 [facility] Comment on above: Ordered: 09/30/2023 CARDIOPULMONARY REHABILITATION CARDIOPULMONARY REHABILITATION Cardiac Services Ordered: 10/01/2023 [facility] Comment on above: Ordered: 10/01/2023 CARDIOPULMONARY REHABILITATION CARDIOPULMONARY REHABILITATION Cardiac Services Ordered: 10/01/2023 [facility] Comment on above: Ordered: 10/01/2023 CARDIOPULMONARY REHABILITATION CARDIOPULMONARY REHABILITATION Cardiac Services Ordered: 10/05/2023 [facility] Comment on above: Ordered: 10/05/2023 Cardiopulmonary rehabilitation Cardiopulmonary rehabilitation Cardiac Services Ordered: 10/07/2023 [facility] Comment on above: Ordered: 10/07/2023 Cardiopulmonary rehabilitation Cardiopulmonary rehabilitation Cardiac Services Ordered: 10/08/2023 [facility] Comment on above: Ordered: 10/08/2023 Cardiopulmonary rehabilitation Cardiopulmonary rehabilitation Cardiac Services Ordered: 10/12/2023 [facility] Comment on above: Ordered: 10/12/2023 Cardiopulmonary rehabilitation Cardiopulmonary rehabilitation Cardiac Services Ordered: 10/14/2023 [facility] Comment on above: Ordered: 10/14/2023 Cardiopulmonary rehabilitation Cardiopulmonary rehabilitation Cardiac Services Ordered: 10/19/2023 [facility] Comment on above: Ordered: 10/19/2023 Cardiopulmonary rehabilitation Cardiopulmonary rehabilitation Cardiac Services Ordered: 10/29/2023 [facility] Comment on above: Ordered: 10/29/2023 Cardiopulmonary rehabilitation Cardiopulmonary rehabilitation Cardiac Services Ordered: 11/02/2023 [facility] Comment on above: Ordered: 11/02/2023 Cardiopulmonary rehabilitation Cardiopulmonary rehabilitation Cardiac Services Ordered: 11/12/2023 [facility] Comment on above: Ordered: 11/12/2023 Cardiopulmonary rehabilitation Cardiopulmonary rehabilitation Cardiac Services Ordered: 11/05/2023 [facility] Comment on above: Ordered: 11/05/2023 Cardiopulmonary rehabilitation Cardiopulmonary rehabilitation Cardiac Services Ordered: 11/11/2023 [facility] Comment on above: Ordered: 11/11/2023 Cardiopulmonary rehabilitation Cardiopulmonary rehabilitation Cardiac Services Ordered: 11/04/2023 [facility] Comment on above: Ordered: 11/04/2023 Cardiopulmonary rehabilitation Cardiopulmonary rehabilitation Cardiac Services Ordered: 11/16/2023 [facility] Comment on above: Ordered: 11/16/2023 Cardiopulmonary rehabilitation Cardiopulmonary rehabilitation Cardiac Services Ordered: 11/18/2023 [facility] Comment on above: Ordered: 11/18/2023 End: 10-11-2025 Colonoscopy Colonoscopy GI Routine Positive colorectal cancer screening using Cologuard test 1 Occurrences starting 10/11/2024 until 10/11/2025 [facility] Work Phone: Comment on above: 1 Occurrences starting 10/11/2024 until 10/11/2025 End: 05-29-2025 ECG COMPLETE ECG COMPLETE ECG Routine Palpitations 1 Occurrences starting 05/29/2024 until 05/29/2025 [facility] Work Phone: Comment on above: 1 Occurrences starting 05/29/2024 until 05/29/2025 End: 06-22-2025 ECG COMPLETE ECG COMPLETE ECG Routine Persistent atrial fibrillation (HCC) 1 Occurrences starting 06/22/2024 until 06/22/2025 [facility] Work Phone: Comment on above: 1 Occurrences starting 06/22/2024 until 06/22/2025 End: 06-22-2025 Echocardiography ECHO Cardiology Routine Persistent atrial fibrillation (HCC) 1 Occurrences starting 06/22/2024 until 06/22/2025 [facility] Comment on above: 1 Occurrences starting 06/22/2024 until 06/22/2025 Immunizations Immunization Date Immunization Notes Care Provider Fa [facility] 12-27-2007 tetanus toxoid, redu humphrey diphtheria toxoid, and acellular pertussis vaccine, adsorbed Maame Thakkar NP Work Phone: [facility] 06-28-2001 TD(adult) unspecifie d formulation Maame Thakkar NP Work Phone: [facility] Payers Date Payer Category Payer Unknown [id number] 2023 Medicare (Managed Care) 1.2. [id number] 2021 Medicare [id number] 2021 Medicare [facility]MO [facility] [id number] 2021 Unknown [id number] 2019 Unknown [id number]. 1.13.693.2 .[id number] 2018 Unknown [id number] 1998 Unknown [id number] 72 1959 Medicare [id number] 1959 Unknown [id number] 1955 Unknown [id number] 2..840.1.899296.3.579.2 .593 1955 Unknown [id number] 2.16.840.1.811964.3.579.2 .718 1955 Unknown [id number] 2.16.840.1.196904.3.579.2 .718 1955 Unknown [id number] 2.16.840.1.913021.3.579.2 .718 1955 Unknown [id number] 2.16.840.1.644059.3.579.2 .718 1955 Unknown [id number] 2.16.840.1.453756.3.579.2 .718 1955 Unknown [id number] 2.16.840.1.388418.3.579.2 .8 1955 Unknown [id number] 2.16.840.1.454363.3.579.2 .8 1955 Unknown [id number] 2.16.840.1.485847.3.579.2 .1285 1955 Unknown [id number] 2.16.840.1.244669.3.579.2 .1285 1955 Unknown [id number] 2.16.840.1.397123.3.579.2 .1285 1955 Unknown [id number] 2.16840.1.314727.3.579.2 .1285 1955 Unknown [id number] 2.16.840.1.668119.3.579.2 .1285 1955 Unknown [id number] 2.16.840.1.451472.3.579.2 .1285 1955 Unknown [id number] 2.16.840.1.595679.3.579.2 .1285 1955 Unknown [id number] 2.16840.1.815102.3.579.2 .1285 1955 Unknown [id number] 2.16.840.1.422188.3.579.2 .1285 1955 Unknown [id number] 2.16.840.1.887603.3.579.2 .1285 1955 Unknown [id number] 2.16.840.1.050629.3.579.2 .1285 1955 Unknown [id number] 2.16.840.1.279011.3.579.2 .1285 1955 Unknown [id number] 2.16.840.1.229431.3.579.2 .1286 1955 Unknown [id number] 2.16.840.1.763312.3.579.2 .1285 1955 Unknown [id number] 2.16.840.1.233559.3.579.2 .1285 1955 Unknown [id number] 2.16.840.1.671449.3.579.2 .1285 1955 Unknown [id number] 2.16.840.1.591382.3.579.2 .1285 1955 Unknown [id number] 2.16.840.1.247081.3.579.2 .1285 1955 Unknown [id number] 2.16.840.1.281148.3.579.2 .1285 1955 Unknown [id number] 2.16.840.1.170904.3.579.2 .1285 1955 Unknown [id number] 2.16.840.1.941788.3.579.2 .1285 1955 Unknown [id number] 2.16.840.1.228772.3.579.2 .1285 1955 Unknown [id number] 2.16.840.1.252856.3.579.2 .1285 1955 Unknown [id number] 2.16.840.1.891589.3.579.2 .1285 1955 Unknown [id number] 2.16.840.1.573522.3.579.2 .1285 1955 Unknown [id number] 2.16.840.1.720651.3.579.2 .1285 1955 Unknown [id number] 2.16.840.1.595249.3.579.2 .1285 1955 Unknown [id number] 2.16.840.1.997162.3.579.2 .1286 1955 Unknown [id number] 2.16.840.1.436034.3.579.2 .1285 1955 Unknown [id number] 2.16.840.1.339464.3.579.2 .1285 1955 Unknown [id number] 2.16.840.1.552980.3.579.2 .1285 1955 Unknown [id number] 2.16.840.1.462078.3.579.2 .1285 1955 Unknown [id number] 2.16.840.1.111859.3.579.2 .1285 1955 Unknown [id number] 2.16.840.1.820599.3.579.2 .1285 1955 Unknown [id number] 2.16840.1.386042.3.579.2 .1285 1955 Unknown [id number] 2.16.840.1.151245.3.579.2 .1285 1955 Unknown [id number] 2.16.840.1.568515.3.579.2 .1285 1955 Unknown [id number] 2.16.840.1.036723.3.579.2 .1285 1955 Unknown [id number] 2.16.840.1.471495.3.579.2 .1285 1955 Unknown [id number] 2.16.840.1.297881.3.579.2 .1285 1955 Unknown [id number] 2.16.840.1.657050.3.579.2 .1285 1955 Unknown [id number] 2.16.840.1.904340.3.579.2 .1285 1955 Unknown [id number] 2.16.840.1.867476.3.579.2 .1286 1955 Unknown [id number] 2.16.840.1.462712.3.579.2 .1286 1955 Unknown [id number] 2.16.840.1.563542.3.579.2 .6 1955 Unknown [id number] 2.16.840.1.003547.3.579.2 .1286 1955 Unknown [id number] 2.16.840.1.270660.3.579.2 .128 1955 Unknown [id number] 2.16.840.1.560277.3.579.2 .1285 1955 Unknown [id number] 2.16.840.1.833731.3.579.2 .1285 1955 Unknown [id number] 2.16.840.1.550242.3.579.2 .1285 1955 Unknown [id number] 2.16.840.1.779346.3.579.2 .128 1955 Unknown [id number] 2.16.840.1.572060.3.579.2 .1285 1955 Unknown [id number] 2.16.840.1.336086.3.579.2 .1286 1955 Unknown [id number] 2.16.840.1.604323.3.579.2 .1285 1955 Unknown [id number] 2.16.840.1.809978.3.579.2 .128 1955 Unknown [id number] 2.16.840.1.970351.3.579.2 .1285 1955 Unknown [id number] 2.16.840.1.064387.3.579.2 .128 1955 Unknown [id number] 2.16.840.1.611598.3.579.2 .1285 1955 Unknown [id number] 2.16.840.1.982207.3.579.2 .1286 1955 Unknown [id number] 2.16.840.1.963445.3.579.2 .1286 1955 Unknown [id number] 2.16.840.1.442400.3.579.2 .1286 1955 Unknown [id number] 2.16.840.1.251586.3.579.2 .1286 1955 Unknown [id number] 2.16.840.1.537587.3.579.2 .1286 1955 Unknown [id number] 2.16.840.1.013684.3.579.2 .1286 1955 Unknown [id number] 2.16.840.1.890864.3.579.2 .1286 1955 Unknown [id number] 2.16.840.1.824653.3.579.2 .1286 1955 Unknown [id number] 2.16.840.1.251385.3.579.2 .1286 1955 Unknown [id number] 2.16.840.1.051955.3.579.2 .1259 1955 Unknown [id number] 2.16.840.1.472178.3.579.2 .1259 1955 Unknown [id number] 2.16.840.1.863611.3.579.2 .1259 1955 Unknown [id number] 2.16.840.1.806478.3.579.2 .1259 Social History Date Type Detail Facility Tobacco smoking status IAIS Tobacco smoking consumption unknown [facility] Start: 1955 Sex Assigned At Not on file [facility] Start: 08-08-2020 End: 08-09-2023 Gender identity Not on file [facility] Start: 05-10-2023 End: 08-09-2023 Tobacco smoking status IAIS Ex-smoker [facility] History of tobacco use Current smoker [facility] History of tobacco use Cigarette Smoker [facility] Start: 05-10-2023 End: 08-09-2023 Tobacco use and exposure Smokeless tobacco non-user [facility] Start: 08-09-2023 End: 09-18-2024 Alcohol intake Lifetime non-drinker (finding) [facility] Start: 08-08-2020 End: 08-09-2023 History of Social function [facility] National Score (1-100), lower number is lower risk 88 [facility] Start: 1955 Sex assigned at Male [facility] Start: 07-30-2024 Gender identity Identifies as male gender (finding) [facility] Start: 06-04-2023 End: 10-11-2024 Alcohol intake Current drinker of alcohol (finding) [facility] Start: 05-10-2023 Alcohol Comment social [facility] Start: 01-31-2015 Sex Male (finding) [facility] NEGATED: Highlighted rowStart: NINF History of tobacco use Passive smoker [facility] Medical Equipment Procedure Code Equipment Code Equipment Origin al Text Equipment Identifier Dates [id number] Start : 12-10-2023 Other [id number] Start: 12-27-2003 [id number] [facility] Star t: 11-27-2023 [id number] Start : 11-27-2023 [id number] Jeremy H f [id number] Start: 06-22-2024 Other [id number] Start: 06-22-2024 Other 7120q Dura ta [id number] Start: 06-22-2024 Other 1457q Quar tet [id number] Start: 06-22-2024 Goals Date Patient Goal Desired Activity /State Personal health goal Functional Status Date Assessment Result Facility 06-27-2024 Are you deaf, or do you have serious difficulty hearing No 06/27/2024 5:00 PM Faviola Connelly RN No [facility] 06-27-2024 Are you blind, or do you have serious difficulty seeing, even when wearing glasses No 06/27/2024 5:00 PM Faviola Connelly, MELISSA No [facility] 06-27-2024 Do you have serious difficulty walking or climbing stairs No 06/27/2024 5:00 PM Faviola Connelly, MELISSA No [facility] 06-27-2024 Do you have difficul ty dressing or bathing No 06/27/2024 5:00 PM Faviola Connelly RN No [facility] 06-27-2024 Because of a physica l, mental, or emotional condition, do you have difficulty doing errands alone such as visiting a physician's office or shopping No 06/27/2024 5:00 PM Faviola Connelly RN No [facility] Mental Status Date Assessment Result Facility 06-27-2024 Because of a physica l, mental, or emotional condition, do you have serious difficulty concentrating, remembering, or making decisions No 06/27/2024 5:00 PM Faviola Connelly RN No [facility] Clinical Notes 08-09-2023 to 10-11-2024 Nusrat Santos APRN-[employer] - 10/11/2024 11:30 AM EDTTelephone Encounter - Jackie Brooks - 09/25/2024 2:13 PM EDTTelephone Encounter - Jackie Brooks - 09/25/2024 2:13 PM EDTPatient Instructions Note Date & Type Note Facility 10-11-2024 History of Present illness Narrative Images from the original note were not included. Chief Complaint: Positive Cologuard History of Present Illness Giles Phillips is a 69 y.o. male who presents to the office for positive Cologuard. He has never had colonoscopy. He denies any concerns or changes in his bowel habits. No black or bright red blood in his stool. No abdominal pain, constipation or diarrhea. He has significant cardiac history with heart failure and reduced ejection fraction 18% as of May 2024. He follows with Dr. Jackson. He denies chest pain and shortness of breath. He has pacer AICD in place. On Eliquis and Plavix. Review of Systems Constitutional: Negative for fever and unexpected weight change. HENT: Negative for trouble swallowing. Respiratory: Negative for shortness of breath. Cardiovascular: Negative for chest pain. Gastrointestinal: Negative for nausea, vomiting, abdominal pain, diarrhea, constipation and blood in stool. Genitourinary: Negative for dysuria and difficulty urinating. Musculoskeletal: Negative for gait problem. Skin: Negative for rash and wound. Neurological: Negative for dizziness, weakness and light-headedness. Hematological: Does not bruise/bleed easily. Psychiatric/Behavioral: Negative for confusion. Past Medical History: Diagnosis Date Atrial fibrillation ([facility] BPH (benign prostatic hyperplasia) CAD (coronary artery disease) Chronic HFrEF (heart failure with reduced ejection fraction) ([facility]) Diabetes ([facility]) GERD (gastroesophageal reflux disease) History of heart artery stent Hypertension Presence of combination internal cardiac defibrillator (ICD) and pacemaker Rheumatoid arthritis ([facility] Past Surgical History: Procedure Laterality Date CORONARY ARTERY BYPASS GRAFT LEG AMPUTATION Left AKA Allergies Allergen Reactions Codeine Dizziness Current Outpatient Medications: amiodarone (PACERONE) 200 mg tablet, Take 1 tablet (200 mg total) by mouth in the morning., Disp: , Rfl: apixaban (ELIQUIS) 5 mg tablet, Take 1 tablet (5 mg total) by mouth in the morning and 1 tablet (5 mg total) before bedtime., Disp: , Rfl: cholecalciferol 1,000 units tablet, Take 1 tablet (1,000 Units total) by mouth in the morning., Disp: , Rfl: clopidogreL (PLAVIX) 75 mg tablet, Take 1 tablet (75 mg total) by mouth in the morning., Disp: , Rfl: empagliflozin (JARDIANCE) 25 mg tablet tablet, Take 1 tablet (25 mg total) by mouth in the morning., Disp: , Rfl: furosemide (LASIX) 20 mg tablet, Take 1 tablet (20 mg total) by mouth daily., Disp: , Rfl: methotrexate 2.5 mg chemo tablet, Take 6 tablets by mouth once a week, Disp: , Rfl: metoprolol tartrate (LOPRESSOR) 25 mg tablet, Take 0.5 tablets (12.5 mg total) by mouth in the morning., Disp: , Rfl: multivitamin/iron/folic acid (CENTRUM ORAL), Take by mouth., Disp: , Rfl: pantoprazole (PROTONIX) 40 mg EC tablet, Take 1 tablet (40 mg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 Organization Meetings: Never Marital Status: Intimate Partner Violence: Not At Risk (09/07/2024) Humiliation, Afraid, Rape, and Kick questionnaire Fear of Current or Ex-Partner: No Emotionally Abused: No Physically Abused: No Sexually Abused: No Depression: Not at risk (09/07/2024) PHQ-2 PHQ-2 Score: 0 Housing Stability: Low Risk (08/11/2023) Housing Stability Vital Sign Unable to Pay for Housing in the Last Year: No Number of Times Moved in the Last Year: Not on file Homeless in the Last Year: Not on file Utilities: Not At Risk (08/11/2023) [facility] Utilities Threatened with loss of utilities: No Health Literacy: Not on file Meds: Current Outpatient Medications on File Prior to Visit Medication Sig Dispense Refill amiodarone (Pacerone) 200 mg tablet Take 1 tablet (200 mg) by mouth once daily as directed for 14 days. (Patient taking differently: Take 200 mg by mouth in the morning.) 14 tablet 0 apixaban (Eliquis) 5 mg tablet Take 1 tablet (5 mg) by mouth in the morning and at bedtime. 180 tablet 3 blood pressure test kit-large kit 1 kit once daily as directed. 1 kit 0 clopidogrel (Plavix) 75 mg tablet clopidogrel 75 mg tablet digoxin (Lanoxin) 125 MCG tablet Take 125 mcg by mouth. empagliflozin (Jardiance) 10 mg Take 1 tablet (10 mg) by mouth in the morning. 90 tablet 3 folic acid (Folvite) 1 mg tablet folic acid 1 mg tablet furosemide (Lasix) 20 mg tablet Take 1 tablet (20 mg) by mouth in the morning. 30 tablet 0 methotrexate 2.5 mg tablet Take 15 mg by mouth 1 (one) time per week metoprolol succinate XL (Toprol-XL) 25 mg 24 hr tablet Take 1 tablet (25 mg) by mouth in the morning. 90 tablet 3 pantoprazole (ProtoNix) 40 mg EC tablet Take 40 mg by mouth before breakfast. Do not crush, chew, or split. rosuvastatin (Crestor) 20 mg tablet Take 1 tablet (20 mg) by mouth in the morning. 30 tablet 0 sacubitril-valsartan (Entresto) 24-26 mg tablet Take 1 tablet by mouth in the morning and at bedtime. 60 tablet 3 spironolactone (Aldactone) 25 mg tablet Take 1 tablet (25 mg) by mouth in the morning. (Patient taking differently: Take 12.5 mg by mouth in the morning.) 30 tablet 0 tamsulosin (Flomax) 0.4 mg 24 hr capsule tamsulosin 0.4 mg capsule TAKE 1 CAPSULE BY JH (more content not included)... [facility] 09-04-2024 Note [facility] 09-04-2024 History of Present illness Narrative VIRTUAL VISIT PROGRESS NOTE This is a virtual visit using [employer] I/O Zoom Video Visit. It required patient-provider interaction for the medical decision making as documented below. I have communicated my name and active licensure. The patient's identity and physical location were verified at the time of this visit. Either the patient or their legal customer retention representative has been informed of the risks and benefits of -- and alternatives to -- treatment through a remote evaluation and consents to proceed with the evaluation remotely. Giles Phillips is a 69 year old male seen for hospital follow-up. Last visit with me 07/31/24. Overall he has done well since last visit. There has not been fever, chills, sweats, or other constitutional symptoms. Device extraction site and new device site have healed well. Still having some issues with diaphragmatic stimulation which his local team is working through. He has a good appetite. Energy level is good. No problems with his stump. He has now been off antibiotics for at least a month. HISTORY REVIEWED (electronic chart updated): PAST MEDICAL HISTORY Diagnosis Date Atrial fibrillation (HCC) Atrial flutter (HCC) CAD (coronary artery disease) No past surgical history on file. No family history on file. Current Outpatient Medications Medication Sig apixaban (ELIQUIS) 5 mg tab(s) Take 1 tablet by mouth two times a day. empagliflozin (JARDIANCE) 10 mg tablet Take 1 tablet by mouth daily with breakfast. sacubitril-valsartan (ENTRESTO) 24-26 mg tablet Take 1 tablet by mouth two times a day. spironolactone (ALDACTONE) 25 mg tablet Take 0.5 tablets by mouth once daily. magnesium oxide (MAG-OX) 400 mg (241.3 mg magnesium) tablet Take 1 tablet by mouth once daily. Patient should start on June 28, 2024. amiodarone (PACERONE) 200 mg tablet Take 1 tablet by mouth once daily. tamsulosin (FLOMAX) 0.4 mg Take 1 tablet by mouth once daily. clopidogrel (PLAVIX) 75 mg tablet Take 75 mg by mouth once daily. folic acid 1 mg tablet Take 1 mg by mouth once daily. furosemide (LASIX) 20 mg tablet Take 20 mg by mouth once daily. metoprolol succinate ER (TOPROL XL) 25 mg 24 hr tablet Take 25 mg by mouth once daily. pantoprazole DR (PROTONIX) 40 mg tablet Take 40 mg by mouth once daily. rosuvastatin (CRESTOR) 20 mg tablet Take 20 mg by mouth once daily. No current facility-administered medications for this visit. ALLERGIES No Known Allergies REVIEW OF SYSTEMS: In addition to those reviewed and documented in the HPI all other systems reviewed and were negative. PHYSICAL EXAMINATION: VIDEO EXAM: (if completed, performed via video enabled technology) Looks well, no distress Extraction site intact New device site intact ASSESSMENT: (T82.7XXA) ICD (implantable cardioverter-defibrillator) infection, initial encounter (HCC) (primary encounter diagnosis) @ALLNAHID@ 69-year-old with a past medical history including but not limited to diabetes, COPD, peripheral vascular disease status post left AKA, atrial fibrillation/flutter, and ischemic cardiomyopathy status post CABG is seen today in follow-up after hospital stay for CIED infection. Patient has a history of ICD placement with upgrade to a biventricular device 12/10/2023. He developed a device erosion. He presented for an opinion here and was admitted to the hospital. He had been treated prior to hospital stay with doxycycline. There was no associated systemic illness. Admitted to our hospital on 06/13. Blood cultures were without growth. Echocardiography with a dilated left ventricular with severely reduced ejection fraction. He was taken to the operating room on 06/19 and underwent CIED explant. Cultures from the procedure revealed a few Bacillus species, Staphylococcus epidermidis, and 1 colony of Pseudomonas putida from an RV lead tip culture. Logistics of home IV antibiotics were challenging. He received vancomycin and ciprofloxacin in the hospital. On day of discharge he was given dalbavancin 1.5 g IV x 1. He was discharged to complete a course of ciprofloxacin 750 mg p.o. every 12 hours to run until 07/04/2024. On 07/04/2024 he started Bactrim DS 1 p.o. every 12 hours and took that for 4 weeks finishing on or around 08/01/24. On evaluation today he is clinically well without symptoms or signs suggestive of uncontrolled infection. PLAN: No further antibiotics. Discussed with patient symptoms and signs that would suggest relapse, asked him to call me if these were to occur or if he has any other questions. We will not schedule ID follow-up at this time. He has an open invitation to contact me if issues arise. There are no Patient Instructions on file for this visit. Prateek Howell MD documented in this encounter [facility] 07-31-2024 Telephone encounter Note Spoke with patient. Patient accepted Virtual appt. 09/04 at 9:00 am [facility] 07-31-2024 Miscellaneous Notes Spoke with patient. Patient accepted Virtual appt. 09/04 at 9:00 am documented in this encounter [facility] 07-31-2024 Note [facility] 07-31-2024 History of Present illness Narrative VIRTUAL VISIT PROGRESS NOTE This is a virtual visit using [email or web address] Video Visit. It required patient-provider interaction for the medical decision making as documented below. I have communicated my name and active licensure. The patient's identity and physical location were verified at the time of this visit. Either the patient or their legal customer retention representative has been informed of the risks and benefits of -- and alternatives to -- treatment through a remote evaluation and consents to proceed with the evaluation remotely. Giles Phillips is a 69 year old male seen for hospital follow-up. He has done well since discharge from the hospital. There has not been fever, chills, sweats, or other constitutional symptoms. His new device site has healed well. He has a good appetite. He currently has 2 days of Bactrim left. He has tolerated it reasonably well thus far. No other new health care events since discharge. He had some diaphragmatic stimulation from his device. He had a device check on 07/26. Diaphragmatic stimulation was unable to be provoked. HISTORY REVIEWED (electronic chart updated): PAST MEDICAL HISTORY Diagnosis Date Atrial fibrillation (HCC) Atrial flutter (HCC) CAD (coronary artery disease) No past surgical history on file. No family history on file. Current Outpatient Medications Medication Sig apixaban (ELIQUIS) 5 mg tab(s) Take 1 tablet by mouth two times a day. empagliflozin (JARDIANCE) 10 mg tablet Take 1 tablet by mouth daily with breakfast. sacubitril-valsartan (ENTRESTO) 24-26 mg tablet Take 1 tablet by mouth two times a day. spironolactone (ALDACTONE) 25 mg tablet Take 0.5 tablets by mouth once daily. magnesium oxide (MAG-OX) 400 mg (241.3 mg magnesium) tablet Take 1 tablet by mouth once daily. Patient should start on June 28, 2024. amiodarone (PACERONE) 200 mg tablet Take 1 tablet by mouth once daily. tamsulosin (FLOMAX) 0.4 mg Take 1 tablet by mouth once daily. clopidogrel (PLAVIX) 75 mg tablet Take 75 mg by mouth once daily. folic acid 1 mg tablet Take 1 mg by mouth once daily. furosemide (LASIX) 20 mg tablet Take 20 mg by mouth once daily. metoprolol succinate ER (TOPROL XL) 25 mg 24 hr tablet Take 25 mg by mouth once daily. pantoprazole DR (PROTONIX) 40 mg tablet Take 40 mg by mouth once daily. rosuvastatin (CRESTOR) 20 mg tablet Take 20 mg by mouth once daily. No current facility-administered medications for this visit. ALLERGIES No Known Allergies REVIEW OF SYSTEMS: In addition to those reviewed and documented in the HPI all other systems reviewed and were negative. PHYSICAL EXAMINATION: VIDEO EXAM: (if completed, performed via video enabled technology) Looks well, no distress ASSESSMENT: (T82.7XXA) ICD (implantable cardioverter-defibrillator) infection, initial encounter (HCC) (primary encounter diagnosis) @ALLSL@ 69-year-old with a past medical history including but not limited to diabetes, COPD, peripheral vascular disease status post left AKA, atrial fibrillation/flutter, and ischemic cardiomyopathy status post CABG is seen today in follow-up after hospital stay for CIED infection. Patient has a history of ICD placement with upgrade to a biventricular device 12/10/2023. He developed a device erosion. He presented for an opinion here and was admitted to the hospital. He had been treated prior to hospital stay with doxycycline. There was no associated systemic illness. Admitted to our hospital on 06/13. Blood cultures were without growth. Echocardiography with a dilated left ventricular with severely reduced ejection fraction. He was taken to the operating room on 06/19 and underwent CIED explant. Cultures from the procedure revealed a few Bacillus species, Staphylococcus epidermidis, and 1 colony of Pseudomonas putida from an RV lead tip culture. Logistics of home IV antibiotics were challenging. He received vancomycin and ciprofloxacin in the hospital. On day of discharge he was given dalbavancin 1.5 g IV x 1. He was discharged to complete a course of ciprofloxacin 750 mg p.o. every 12 hours to run until 07/04/2024. On 07/04/2024 he started Bactrim DS 1 p.o. every 12 hours. He was to take that for 4 weeks. On evaluation today he is clinically well. He has tolerated Bactrim. His last day of therapy is tomorrow. PLAN: Finish Bactrim DS as planned. Discussed with patient symptoms and signs that would suggest relapse, asked him to call me if these were to occur or if he has any other questions. Virtual visit follow-up with me in 4 to 6 weeks, sooner as needed. There are no Patient Instructions on file for this visit. Prateek Howell MD documented in this encounter [facility] 07-14-2024 Telephone encounter Note Spoke to patient and scheduled an appointment to come in for vector testing. [facility] 07-14-2024 Miscellaneous Notes Spoke to patient and scheduled an appointment to come in for vector testing. Pt have questions regarding his device causing his stomach to contract, it makes him nauseous. Pt can be reached at [phone] documented in this encounter [facility] 07-14-2024 Telephone encounter Note Pt have questions regarding his device causing his stomach to contract, it makes him nauseous. Pt can be reached at [phone] [facility] 07-06-2024 Telephone encounter Note Post Implant follow up call: Date: 07/06/2024 Name: Giles Phillips Is your incision: Red: No Open: No Swollen: No Draining: No Steri Strips: still intact If the device is an ICD, have you received any shocks: No Have you received your temporary or permanent ID card: Yes Do you have your f/u appointment: Yes Appointments for Next 60 Days Date Time Provider Location Dept Phone 07/31/2024 9:30 AM PRATEEK HOWELL [facility] [phone] 08/03/2024 1:30 PM [facility] [phone] Any scheduling issues:No Questions moving forward: No Alyse Sutton MA [facility] 07-06-2024 Miscellaneous Notes Post Implant follow up call: Date: 07/06/2024 Name: Giles Phillips Is your incision: Red: No Open: No Swollen: No Draining: No Steri Strips: still intact If the device is an ICD, have you received any shocks: No Have you received your temporary or permanent ID card: Yes Do you have your f/u appointment: Yes Appointments for Next 60 Days Date Time Provider Location Dept Phone 07/31/2024 9:30 AM PRATEEK HOWELL [facility] [phone] 08/03/2024 1:30 PM DEVICE CLINIC [facility] [phone] Any scheduling issues:No Questions moving forward: No Alyse Sutton MA documented in this encounter [facility] 07-05-[address] Jarrett reviewed. He recommends patient increase his lasix for 3 days if having fluid retention and follow up with local radiology tech. Spoke to patient who reports he is feeling well, does not have any swelling, denies shortness of breath. He reports weight gain over the last week but attributes it to eating well. He does not feel he is retaining fluid. Advised patient to take his weight in the morning everyday, after going to the bathroom but before he eats or drinks and to watch for weight gain of 3 or more pounds from one day to the next. He expresses understanding. Tootie Delatorre RN [facility] 07-05-[address] Jarrett reviewed. He recommends patient increase his lasix for 3 days if having fluid retention and follow up with local radiology tech. Spoke to patient who reports he is feeling well, does not have any swelling, denies shortness of breath. He reports weight gain over the last week but attributes it to eating well. He does not feel he is retaining fluid. Advised patient to take his weight in the morning everyday, after going to the bathroom but before he eats or drinks and to watch for weight gain of 3 or more pounds from one day to the next. He expresses understanding. Tootie Delatorre RN Attempted to reach patient at [phone]. Left detailed message with office number. Tootie Delatorre RN Pt have questions regarding weight gain. Pt can be reached at documented in this encounter [facility] 07-05-2024 Telephone encounter Note Attempted to reach patient at [phone]. Left detailed message with office number. Tootie Delatorre RN [facility] 07-05-2024 Telephone encounter Note Pt have questions regarding weight gain. Pt can be reached at [facility] 07-03-2024 Telephone encounter Note Images from the original note were not included. Outside ep Jo Poole [facility] 07-03-2024 Miscellaneous Notes Images from the original note were not included. Outside ep Jo Poole documented in this encounter [facility] 06-29-2024 History of Present illness Narrative TRANSITION CARE MANAGEMENT (TCM) HEART FAILURE PHARMACY CONTACT Provider Action/FYI: TCM Medication Reconciliation completed for patient. See medication list table below for details. No further action required at this time Patient Workup: HF medication classes present on medication list: BERTA/ARB/ARNI YES - sacubitril-valsartan Beta carlee YES - metoprolol succinate ER Aldosterone antagonist YES - spironolactone SGLT2i YES - empagliflozin Hydralazine/Isosorbide NO Ivabradine NO Loop diuretics YES - furosemide Digoxin NO New HF medication class(es) added this admission: No (Patient to be counseled on new medications if full medication review completed) Last documented LVEF: LV Ejection Fraction (%) Date Value 06/14/2024 18 Last documented weight: Last Wt 06/27/24 77.2 kg (170 lb 3.1 oz) Patient was sent a message via [employer] including the link to the [facility] Heart Failure education video: No Initial contact with patient post discharge, spoke to patient, and verified that any applicable caregiver is active in patient's medical care. Patient identified by name and . Summary: -Pt discharged from [facility] on 06/27/24. -Medication review done Full medication review completed Patient Concerns: Patient states he received his new medications and has no questions or concerns regarding his medication list. ROS: Denies new or worsening shortness of breath at rest and on exertion (orthopnea, PND, bendopnea, wheezing/coughing). Denies new or worsening symptoms of edema (abdominal, early satiety, lower extremity, or abnormal weight gain). Denies new or worsening CP, palpitations, KHOURY, blurred vision. Denies new or worsening dizziness, lightheadedness, syncope. Denies new or worsening N/V, diarrhea, abdominal pain. Denies potential medication adverse effects. Red flag symptom(s) identified during call: No History of Present Illness: The following content has been copied and pasted from patient's discharge summary. If discharge summary unavailable, After Visit Summary or last pertinent inpatient notes are copied and pasted. 69 y/o/m with ICM and longstanding HFrEF s/p VVI ICD 2003 and upgrade to DIRECTOR OF FIELD SERVICE-D with addition of RA and LV leads on 11/27/2023. He developed erosion of medial aspect of his incision with a pinpoint opening that progressed to device being exposed. He was treated with Doxycycline for three weeks without improvement. He was referred to [facility] for extraction. HOSPITAL COURSE: The patient was admitted to a [facility] under the EP service. Blood cultures were obtained and ID was consulted. ID recommended IV vancomycin for skin su coverage for 4 weeks. Blood cultures from 06/13 remained negative. He had a transthoracic echocardiogram on 06/14 that showed LVEF 18% with akinetic apical septal segment and apex and severe hypokinesis of the entire anterior wall, entire lateral wall, anterior septum, entire inferior wall and mid inferoseptal and basal inferoseptal segments. CT surgery was consulted for backup. Pre-extraction LHC on 06/15 revealed severe diffuse LM disease, patent SIMPSON-LAD graft which supplies the diagonals and small rPDA, total occlusion in proximal Cx, occluded SVG-OM graft and PRODUCT MANAGEMENT MANAGER of proximal RCA with occluded SVG-rPDA. This was followed with a cardiac PET with viability that showed small scars (<10% )in the LAD, RCA, and LCX territories with mild periinfarct ischemia without hibernating myocardium. CT chest/abdomen/pelvis showed close anatomical proximity of the RV to the sternum and calcifications in the abdominal aorta and both femoral arteries. CT surgery determined he was not an ideal candidate for surgical salvage but Dr. Mohr was willing to intervene in case of an emergency. On 06/19 the patient was taken to the hybrid OR and underwent a successful extraction of complete DIRECTOR OF FIELD SERVICE-D system without complications. Tissue and lead hardware cultures grew few Bacillus species and Staph epidermidis as well as one colony of Pseudomonas. Patient continued on IV vancomycin with plan to continue for 4 weeks post-extraction (through 07/17/23). Ciprofloxacin was added for coverage of Pseudomonas putida. ID cleared patient for right-sided DIRECTOR OF FIELD SERVICE-D reimplantation. The patient was taken to the EP lab on 06/22/24 and underwent right-sided DIRECTOR OF FIELD SERVICE-D reimplantation ([employer] device). Following the procedure, cardiac device interrogation demonstrated appropriate capture, sensing and lead impedances. Post-procedure chest xray was unremarkable with leads appropriately positioned. Due to challenges with insurance coverage of long-term home antibiotics, Infectious Disease recommended a one time dose of Dalbavancin on the day of discharge followed by 4 weeks of coverage with Bactrim DS to start on 07/04/24. Patient will also continue the 14-day course of ciprofloxacin to be completed on 07/04/24. Patient will follow up virtually with Dr. Howell on 07/31/24. Medication Reconciliation: Legend: Stopped, New, Changed, Added to list Medication List Medication Directions Comments Action/Plan amiodarone (PACERONE) 200 mg tablet Take 1 tablet by mouth once daily. apixaban (ELIQUIS) 5 mg tab(s) Take 5 mg by mouth. Twice daily Updated sig ciprofloxacin HCl (CIPRO) 750 mg tablet Take 1 tablet by mouth two times a day for 15 doses. Culture sensitive Taking as prescribed without any issues clopidogrel (PLAVIX) 75 mg tablet Take 75 mg by mouth once daily. Discontinued: 06/27/2024 2:56 PM Aware empagliflozin (JARDIANCE) 10 mg tablet Take 10 mg by mouth. Once daily Updated sig folic acid 1 mg tablet Take 1 mg by mouth once daily. furosemide (LASIX) 20 mg tablet Take 20 mg by mouth once daily. Last 3 Encounter BP Readings: Date: BP: 06/27/2024 101/62 06/13/2024 124/68 Potassium Date Value Ref Range Status 06/27/2024 4.5 3.7 - 5.1 mmol/L Final magnesium oxide (MAG-OX) 400 mg (241.3 mg magnesium) tablet Take 1 tablet by mouth once daily. Patient should start on June 28, 2024. Avoid taking with antibiotics Magnesium Date Value Ref Range Status 06/26/2024 2.4 (H) 1.7 - 2.3 mg/dL Final Taking as prescribed without any issues Advised to take at lunch Discontinued: 06/27/2024 3:10 PM Aware metoprolol succinate ER (TOPROL XL) 25 mg 24 hr tablet Take 25 mg by mouth once daily. Last 3 Encounter BP Readings: Date: BP: 06/27/2024 101/62 06/13/2024 124/[address] (PROTONIX) 40 mg tablet Take 40 mg by mouth once daily. rosuvastatin (CRESTOR) 20 mg tablet Take 20 mg by mouth once daily. sacubitril-valsartan (ENTRESTO) 24-26 mg tablet Take by mouth. Twice daily Last 3 Encounter BP Readings: Date: BP: 06/27/2024/62 06/13/2024 124/68 Potassium Date Value Ref Range Status 06/27/2024 4.5 3.7 - 5.1 mmol/L Final Updated sig spironolactone (ALDACTONE) 25 mg tablet Take 25 mg by mouth. 12.5mg Once daily Last 3 Encounter BP Readings: Date: BP: 06/27/2024 101/62 06/13/2024 124/68 Potassium Date Value Ref Range Status 06/27/2024 4.5 3.7 - 5.1 mmol/L Final Updated sig sulfamethoxazole-trimethoprim (BACTRIM DS) 800-160 mg per tablet Take 1 tablet by mouth two times a day for 28 days. Culture sensitive Taking as prescribed without any issues tamsulosin (FLOMAX) 0.4 mg Take 1 tablet by mouth once daily. Preferred pharmacy: No Pharmacies Listed Estimated Creatinine Clearance: 66.4 mL/min (based on SCr of 1.05 mg/dL). Estimated Glomerular Filtration Rate (mL/min/1.73m ) Date Value 06/27/2024 77 Additional follow up: Next 5 Appointments Date and Time Provider Department Dept Phone 07/31/2024 9:00 AM Prateek Howell MAIN [phone] 08/03/2024 1:30 PM [facility] [phone] 11/23/2024 9:45 AM [facility] EP [facility] [phone] 11/23/2024 10:30 AM EKGJ1-4 MAIN EKG MAIN J1-4 11/23/2024 11:00 AM HVI DISCHARGE ECHO J3-5 [facility] MAIN [phone] Interventions Made: Patient education/Medication counseling Pharmacist Recommendations Made None Care Coordination: None at this time Time spent on patient: 30-45 minutes Lui Alberto RPh June 29, 2024 9:51 AM documented in this encounter [facility] 06-29-2024 Note [facility] 06-26-2024 Note [facility] 06-25-2024 Note [facility] 06-24-2024 Note [facility] 06-24-2024 Note [facility] 06-24-2024 Note [facility] 06-23-2024 Note [facility] 06-22-2024 History of Present illness Narrative Dalbavancin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 subendocardial infarction, initial episode of care ([facility]) Acute myocardial infarction, subendocardial infarction, initial episode of care [facility] Diagnosis Acute myocardial infarction, subendocardial infarction, initial episode of care ([facility]) Acute myocardial infarction, subendocardial infarction, initial episode of care [facility] Diagnosis Acute myocardial infarction, subendocardial infarction, initial episode of care ([facility]) Acute myocardial infarction, subendocardial infarction, initial episode of care [facility] Acute myocardial infarction, subendocardial infarction, initial episode of care ([facility]) Acute myocardial infarction, subendocardial infarction, initial episode of care [facility] Diagnosis Acute myocardial infarction, subendocardial infarction, initial episode of care ([facility]) Acute myocardial infarction, subendocardial infarction, initial episode of care [facility] Diagnosis Acute myocardial infarction, subendocardial infarction, initial episode of care ([facility]) Acute myocardial infarction, subendocardial infarction, initial episode of care [facility] Acute myocardial infarction, subendocardial infarction, initial episode of care ([facility]) Acute myocardial infarction, subendocardial infarction, initial episode of care [facility] Diagnosis Acute myocardial infarction, subendocardial infarction, initial episode of care ([facility]) Acute myocardial infarction, subendocardial infarction, initial episode of care documented [facility] Diagnosis ICD (implantable cardioverter-defibrillator) infection, initial encounter ([facility])- Primary Pacemaker reprogramming/check Fitting and adjustment of cardiac pacemaker [facility] Essential hypertension ([facility])- Primary Unspecified essential hypertension HFrEF (heart failure with reduced ejection fraction) ([facility]) 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 ([facility]) Hyperlipidemia, unspecified hyperlipidemia type ([facility]) COPD mixed type ([facility]) Type 2 diabetes mellitus without complication, without long-term current use of insulin ([facility]) Generalized muscle ache Encounter to establish care with new doctor HFrEF (heart failure with reduced ejection fraction) (CMS/HCC)- Primary Essential hypertension (CMS/HCC) Unspecified essential hypertension Paroxysmal atrial fibrillation (CMS/HCC) Atrial fibrillation Other hyperlipidemia (CMS/HCC) Non-recurrent acute suppurative otitis media of left ear without spontaneous rupture of tympanic membrane- Primary Inflammatory arthritis Unspecified inflammatory polyarthropathy Arthritis of hand HFrEF (heart failure with reduced ejection fraction) (CMS/HCC) Rheumatoid arthritis involving multiple sites with positive rheumatoid factor (CMS/HCC)- Primary Rheumatoid arthritis involving multiple sites with positive rheumatoid factor (CMS/HCC)- Primary HFrEF (heart failure with reduced ejection fraction) (CMS/HCC) Paroxysmal atrial fibrillation (CMS/HCC) Atrial fibrillation Encounter to establish care with new doctor Encounter for screening for malignant neoplasm of colon Medicare annual wellness visit, subsequent Essential hypertension (CMS/HCC)- Primary Unspecified essential hypertension HFrEF (heart failure with reduced ejection fraction) (CMS/HCC) Other hyperlipidemia (CMS/HCC) Type 2 diabetes mellitus without complication, without long-term current use of insulin (CMS/HCC) Right leg pain- Primary Pain in soft tissues of limb Paroxysmal atrial fibrillation (CMS/HCC) Atrial fibrillation Other ventricular tachycardia (CMS/HCC) Phantom limb syndrome with pain (CMS/HCC) Phantom limb (syndrome) 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) 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 (CMS/HCC) HFrEF (heart failure with reduced ejection fraction) (CMS/HCC) Essential hypertension (CMS/HCC) Unspecified essential hypertension Persistent atrial fibrillation (HCC) (CMS/HCC) Atrial fibrillation Gastroesophageal reflux disease, unspecified whether esophagitis present Benign prostatic hyperplasia, unspecified whether lower urinary tract symptoms present Type 2 diabetes mellitus without complication, without long-term current use of insulin (CMS/HCC) Positive colorectal cancer screening using Cologuard test [facility] Diagnosis Positive colorectal cancer screening using Cologuard test- Primary [facility] this [facility] filed[facility] this [facility] on filedocumented in this encounter [facility]Not on filedocumented in this encounter [facility]Not on filedocumented in this encounter [facility] (narrative)* Outpatient Procedure (Routine) - Authorized Specialty Diagnoses / Procedures Referred By Contac t Referred To Contact [facility] Diagnoses Palpitations Procedures ECG COMPLETE ECG ROUTINE ECG W/LEAST 12 LDS W/I&R Lakesha Jarrett MD [id number] [place] [address] Referral ID Status Reason Start Date Expiration Date Visits Requested Visits Authorized [id number] Authorized Auto-Generat ed Referral 05/29/2024 05/29/2025 1 1 [facility] for referral (narrative)* Outpatient Procedure (Routine) - Closed Specialty Diagnoses / Procedures Referred By Contac t Referred To Contact [facility] Diagnoses Pacemaker reprogramming/check Procedures CARDIAC IMPLANTABLE DEVICE CHECK Card Ep Device [facility] Main [address] [place] [address] [phone] Referral ID Status Reason Start Date Expiration Date V isits Requested Visits Authorized [id number] Closed Auto-Generate d Referral 05/29/2024 05/29/2025 1 1 * Outpatient Procedure (Routine) - Closed Specialty Diagnoses / Procedures Referred By Contac t Referred To Contact [facility] Diagnoses Pacemaker reprogramming/check Procedures CARDIAC IMPLANTABLE DEVICE CHECK Card Ep Device [facility] Main [id number] [place] [phone] Referral ID Status Reason Start Date Expiration Date V isits Requested Visits Authorized [id number] Closed Auto-Generate d Referral 05/29/2024 05/29/2025 1 1 [facility] for referral (narrative)* Outpatient Procedure (Routine) - Pending Review Specialty Diagnoses / Procedures Referred By Contac t Referred To Contact [facility] Diagnoses Persistent atrial fibrillation (HCC) Procedures ECHO ECHO TTHRC R-T 2D W/WOM-MODE COMPL SPEC&COLR D Lakesha Jarrett MD [address] [place] [address] [address] Referral ID Status Reason Start Date Expiration Date Visits Requested Visits Authorized [id number] Pending Review Auto-Generat ed Referral 4 06/22/2025 1 1 * Outpatient Procedure (Routine) - Pending Review Specialty Diagnoses / Procedures Referred By Contac t Referred To Contact [facility] [place] Diagnoses Persistent atrial fibrillation (HCC) Procedures ECG COMPLETE ECG ROUTINE ECG W/LEAST 12 LDS W/I&R Lakesha Jarrett MD [phone] [address] Referral ID Status Reason Start Date Expiration Date Visits Requested Visits Authorized [id number] Pending Review Auto-Generat ed Referral 4 06/22/2025 1 1 [facility] for referral (narrative)* Outpatient Procedure (Routine) - Closed Specialty Diagnoses / Procedures Referred By Contac t Referred To Contact [facility] Diagnoses Pacemaker reprogramming/check Procedures CARDIAC IMPLANTABLE DEVICE CHECK Card Ep Device [facility] Main [address] [place] [address] [phone] Referral ID Status Reason Start Date Expiration Date V isits Requested Visits Authorized [id number] Closed Auto-Generate d Referral 06/22/2024 06/22/2025 1 1 [facility] for visit Narrative* Outpatient Procedure (Routine) - Closed Specialty Diagnoses / Procedures Referred By Contac t Referred To Contact [facility] Diagnoses Pacemaker reprogramming/check Procedures CARDIAC IMPLANTABLE DEVICE CHECK Card Ep Device [facility] Main [address] [place] [address] [facility] [place] [address] [place] [address] Referral ID Status Reason Start Date Expiration Date V isits Requested Visits Authorized [id number] Closed Auto-Generate d Referral 05/29/2024 05/29/2025 1 1 [facility] for visit Narrative* Outpatient Procedure (Routine) - Closed Specialty Diagnoses / Procedures Referred By Lauri t Referred To [facility] Diagnoses Pacemaker reprogramming/check Procedures CARDIAC IMPLANTABLE DEVICE CHECK Card Ep Device [facility] Main [address] [place] [address] [facility] [place] [address] [place] [address] Referral ID Status Reason Start Date Expiration Date V isits Requested Visits Authorized [id number] Closed Auto-Generate d Referral 06/22/2024 06/22/2025 1 1 [facility] for visit Narrative* Consultation (Routine) - Pending Review Specialty Diagnoses / Procedures Referred By Lauri t Referred To Contact [facility] Diagnoses Acute myocardial infarction, subendocardial infarction, initial episode of care ([facility]) Procedures Ambulatory referral to [facility]iac Rehabilitation ([facility]) Marlys Estrada MD [address] [facility], 1st [place] [address] Referral ID Status Reason Start Date Expiration Date V isits Requested Visits Authorized [id number] Pending Review 07/12/2023 07/11/2024 36 36 [facility] System Summary Purpose Family History No Family History Records FoundNo Family History Records FoundNo Family History Records FoundNo Family History Records FoundNo Family History Records FoundNo Family History Records FoundNo Family History Records FoundNo Family History Records Found Advance Directives Date Activated Date Inactivated Comments 06/13/2024 2:59 PM 06/27/2024 7:15 PM Question Answer Comments Full Code Order Discussed With: Patient Date Activated Date Inactivated Comments 06/13/2024 2:59 PM Question Answer Comments Full Code Order Discussed With: Patient Date Activated Date Inactivated Comments 06/13/2024 2:59 PM Date Activated Date Inactivated Comments 06/13/2024 2:59 PM 06/27/2024 7:15 PM Reason for Referral Specialty Diagnoses / Procedures Referred By Contac t Referred To Contact [facility] [place] Diagnoses Cardiac resynchronization therapy defibrillator (DIRECTOR OF FIELD SERVICE-D) in place Infection of biventricular implantable cardioverter-defibrillator (ICD), initial encounter (HCC) HFrEF (heart failure with reduced ejection fraction) (HCC) Cardiomyopathy, ischemic Infection involving implantable cardioverter-defibrillator (ICD), initial encounter ([facility]) Procedures CARDIOVASCULAR MEDICINE OP FOLLOW UP APPT ORDER Lakesha Jarrett MD [address] [place] [address] [facility] [address] [address] Referral ID Status Reason Start Date Expiration Date Visits Requested Visits Authorized [id number] Authorized PCP Requested Referral 4 06/18/2025 1 1 Additional Source Comments (unrecognized sect ion and content) No Status Records FoundNo Status Records FoundNo Status Records FoundNo Status Records FoundNo Status Records FoundNo Status Records FoundNo Status Records FoundNo Status Records Found INFORMATION SOURCE (unrecogn ized section and content) DATE CREATED AUTHOR 04/25/2018 [facility] DATE CREATED AUTHOR AUTHOR'S ORGANIZ ATION 02/27/2021 [facility] DATE CREATED AUTHOR AUTHOR'S ORGANIZ ATION 08/18/2023 [facility] DATE CREATED AUTHOR AUTHOR'S ORGANIZ ATION 10/03/2023 [facility] DATE CREATED AUTHOR AUTHOR'S ORGANIZ ATION 11/28/2023 [facility] DATE CREATED AUTHOR AUTHOR'S ORGANIZ ATION 09/05/2024 [facility] DATE CREATED AUTHOR AUTHOR'S ORGANIZ ATION 09/19/2024 [facility] EPIC DATE CREATED AUTHOR AUTHOR'S ORGANIZ ATION 10/10/2024 [facility] Care Teams (unrecognized sec tion and content) Us Administrative Law Judge Relationship Specialty Start Date End Date Shaikh Bautista MD [address] [facility] [place] [address] PCP - General Internal Medicine 08/09/23 Us Administrative Law Judge Relationship Specialty Start Date End Date Shaikh Bautista MD [address] [place] [phone] PCP - General Internal Medicine 08/09/23 Us Administrative Law Judge Relationship Specialty Start Date End Date Shaikh Bautista MD [address] [place] [phone] PCP - General Internal Medicine 08/09/23 Us Administrative Law Judge Relationship Specialty Start Date End Date Quyen Jackson [address] [place] [address] PCP - General Cardiology 06/13/24 Marlys Estrada MD [address] [place] [address] Internal Medicine 06/13/24 Us Administrative Law Judge Relationship Specialty Start Date End Date Quyen Jackson [address] [place] [address] PCP - General Cardiology 06/13/24 Marlys Estrada MD [address] [facility] [place] [address] Internal Medicine 06/13/24 Us Administrative Law Judge Relationship Specialty Start Date End Date Quyen Jackson [address] [facility] [place] [address] PCP - General Cardiology 06/13/24 Marlys Estrada MD [address] [place] [address] Internal Medicine 06/13/24 Us Administrative Law Judge Relationship Specialty Start Date End Date Quyen Jackson [address] [place] [address] PCP - General Cardiology 06/13/24 Marlys Estrada MD [address] [place] [address] Internal Medicine 06/13/24 Us Administrative Law Judge Relationship Specialty Start Date End Date Quyen Jackson [address] [place] [address] PCP - General Cardiology 06/13/24 Marlys Estrada MD [address] [place] [address] Internal Medicine 06/13/24 Us Administrative Law Judge Relationship Specialty Start Date End Date Quyen Jackson [address] [place] [address] PCP - General Cardiology 06/13/24 Marlys Estrada MD [address] [place] [address] Internal Medicine 06/13/24 Us Administrative Law Judge Relationship Specialty Start Date End Date Quyen Jackson [address] [place] [address] PCP - General Cardiology 06/13/24 Marlys Estrada MD [address] [place] [address] Internal Medicine 06/13/24 Us Administrative Law Judge Relationship Specialty Start Date End Date Quyen Jackson [address] [place] [address] PCP - General Cardiology 06/13/24 Marlys Estrada MD [address] [place] [address] Internal Medicine 06/13/24 [facility] [address] [place] [address] Transitional Care Pharmacist Pharmacy 06/29/24 07/30/24 Us Administrative Law Judge Relationship Specialty Start Date End Date Quyen Jackson [address] [place] [address] PCP - General Cardiology 06/13/24 Marlys Estrada MD [address] [place] [address] Internal Medicine 06/13/24 [facility] [address] [facility] [place] [address] Transitional Care Pharmacist Pharmacy 06/29/24 07/30/24 Us Administrative Law Judge Relationship Specialty Start Date End Date Quyen Jackson [address] [facility] [place] [address] PCP - General Cardiology 06/13/24 Marlys Estrada MD [address] [place], [place] [phone] Internal Medicine 06/13/24 [facility] [address] [place] [address] Transitional Care Pharmacist Pharmacy 06/29/24 07/30/24 Us Administrative Law Judge Relationship Specialty Start Date End Date Quyen Jackson [address] [place] [address] PCP - General Cardiology 06/13/24 Marlys Estrada MD [address] [facility] [place], [place] [phone] Internal Medicine 06/13/24 [facility] [address] [place] [address] Transitional Care Pharmacist Pharmacy 06/29/24 07/30/24 Us Administrative Law Judge Relationship Specialty Start Date End Date Quyen Jackson [address] [place] [address] PCP - General Cardiology 06/13/24 Marlys Estrada MD [address] [place], [place] [address] Internal Medicine 06/13/24 [facility] [address] [place] [address] Transitional Care Pharmacist Pharmacy 06/29/24 07/30/24 Us Administrative Law Judge Relationship Specialty Start Date End Date Quyen Jackson [address] [facility] [place] [address] PCP - General Cardiology 06/13/24 Marlys Estrada MD [address] [place] [address] Internal Medicine 06/13/24 Us Administrative Law Judge Relationship Specialty Start Date End Date Quyen Jackson [address] [facility] [place] [address] PCP - General Cardiology 06/13/24 Marlys Estrada MD [address] [place] [address] Internal Medicine 06/13/24 Us Administrative Law Judge Relationship Specialty Start Date End Date Mark Tam DO [address] [place] [address] PCP - General Family Medicine 02/02/19 Us Administrative Law Judge Relationship Specialty Start Date End Date Mark Tam DO [address] [place] [address] PCP - General Family Medicine 02/02/19 Us Administrative Law Judge Relationship Specialty Start Date End Date Mark Tam DO [address] [place] [address] PCP - General Family Medicine 02/02/19 Us Administrative Law Judge Relationship Specialty Start Date End Date Mark Tam DO [address] [place] [address] PCP - General Family Medicine 07/21/23 Us Administrative Law Judge Relationship Specialty Start Date End Date Mark Tam DO [address] [place] [address] PCP - General Family Medicine 07/21/23 Us Administrative Law Judge Relationship Specialty Start Date End Date Mark Tam DO [address] [place] [address] PCP - General Family Medicine 07/21/23 Us Administrative Law Judge Relationship Specialty Start Date End Date Mark Tam DO [address] [place] [address] PCP - General Family Medicine 07/21/23 Us Administrative Law Judge Relationship Specialty Start Date End Date Mark Tam DO [address] [place] [address] PCP - General Family Medicine 07/21/23 Us Administrative Law Judge Relationship Specialty Start Date End Date Mark Tam DO [address] [place] [address] PCP - General Family Medicine 07/21/23 Us Administrative Law Judge Relationship Specialty Start Date End Date Mark Tam DO [address] [place] [address] PCP - General Family Medicine 07/21/23 Us Administrative Law Judge Relationship Specialty Start Date End Date Mark Tam DO [address] [place] [address] PCP - General Family Medicine 07/21/23 Us Administrative Law Judge Relationship Specialty Start Date End Date Mark Tam DO [address] [place] [address] PCP - General Family Medicine 07/21/23 Us Administrative Law Judge Relationship Specialty Start Date End Date Mark Tam DO [address] [place] [address] PCP - General Family Medicine 07/21/23 Us Administrative Law Judge Relationship Specialty Start Date End Date Shaikh Bautista MD [facility] [place] [address] PCP - General Internal Medicine 09/30/23 Us Administrative Law Judge Relationship Specialty Start Date End Date Mark Tam DO [address] [place] [address] PCP - General Family Medicine 07/21/23 09/29/23 Us Administrative Law Judge Relationship Specialty Start Date End Date Shaikh Bautista MD [address] [place] [address] PCP - General Internal Medicine 09/30/23 Us Administrative Law Judge Relationship Specialty Start Date End Date Shaikh Bautista MD [address] [place] [address] PCP - General Internal Medicine 09/30/23 Us Administrative Law Judge Relationship Specialty Start Date End Date Shaikh Bautista MD [address] [place] [address] PCP - General Internal Medicine 09/30/23 Us Administrative Law Judge Relationship Specialty Start Date End Date Shaikh Bautista MD [address] [place] [address] PCP - General Internal Medicine 09/30/23 Us Administrative Law Judge Relationship Specialty Start Date End Date Shaikh Bautista MD [address] [place] [address] PCP - General Internal Medicine 09/30/23 Us Administrative Law Judge Relationship Specialty Start Date End Date Shaikh Bautista MD [address] [place] [address] PCP - General Internal Medicine 09/30/23 Us Administrative Law Judge Relationship Specialty Start Date End Date Shaikh Bautista MD [address] [place] [address] PCP - General Internal Medicine 09/30/23 Us Administrative Law Judge Relationship Specialty Start Date End Date Shaikh Bautista MD [address] [place] [address] PCP - General Internal Medicine 09/30/23 Us Administrative Law Judge Relationship Specialty Start Date End Date Shaikh Bautista MD [address] [place] [address] PCP - General Internal Medicine 09/30/23 Us Administrative Law Judge Relationship Specialty Start Date End Date Shaikh Bautista MD [address] [place] [address] PCP - General Internal Medicine 09/30/23 Us Administrative Law Judge Relationship Specialty Start Date End Date Christiano Tam MD [address] [place] [address] PCP - General Family Medicine 02/21/24 Shaikh Bautista MD [address] [place] [address] PCP - José Miguel HER 07/29/24 Lana Kay NP [address] [place] [address] Nurse Practitioner Family Medicine 02/21/24 Us Administrative Law Judge Relationship Specialty Start Date End Date Christiano Tam MD [address] [place] [address] PCP - General Family Medicine 02/21/24 Shaikh Bautista MD [address] [place] [address] PCP - José Miguel HER 07/29/24 Lana Kay NP [address] [place] [address] Nurse Practitioner Family Medicine 02/21/24 Us Administrative Law Judge Relationship Specialty Start Date End Date Maame Thakkar APRN-[facility] [address] [place] [address] PCP - General Nurse Practitioner 09/18/24 Us Administrative Law Judge Relationship Specialty Start Date End Date [facility] [address] [place] [address] PCP - General Nurse Practitioner 09/18/24 Reason for Visit (unrecogniz ed section and content) Reason Comments Establish Care Reason Comments Patient Update From Dr. Manolo Leon ds are in Care Everywhere Reason Onset Date Comments Cardiomyopathy 06/18/2024 ICD 06/18/2024 Reason Comments CoPat Start Reason Comments Medication Follow-up Dalbavancin Reason Onset Date Comments Transition Of Care 06/29/2024 TCM Pharmacy- Hospital discharge 06/27/24 Reason Comments Received Outside Medical Records Labs [facility] Reason Comments courtesy call Reason Comments Infection Follow Up Reason Comments Appointment Specialty Diagnoses / Procedures Referred By Lauri perez Referred To Contact Diagnoses Acute myocardial infarction, subendocardial infarction, initial episode of care ([facility]) Procedures AMB REFERRAL TO CARDIAC REHAB Referral ID Status Reason Start Date Expiration Date Visits Re quested Visits Authorized [id number] 1 1 Referral ID Status Reason Start Date Expiration Date Visits Re quested Visits Authorized [id number] 1 1 Reason Comments Positive Cologuard POSITIVE COLOGUARD, REFERRED BY MAAME THAKKAR NP Specialty Diagnoses / Procedures Referred By Lauri perez Referred To Contact General Surgery Diagnoses Positive colorectal cancer screening using Cologuard test Procedures ND OFFICE OUTPATIENT VISIT 60-74 MINS HIGH MDM [id number] (SNOMED CT) - AMB REFERRAL TO GENERAL SURGERY Maame Thakkar, SPECIAL AGENT [employer] [address] [place] [address] Phone: tel: fax: Westley Johnson, DO [facility] [place] [address] Phone: tel: fax: Referral ID Status Reason Start Date Expiration Date Visits Re quested Visits Authorized [id number] Closed 09/18/2024 03/17/2025 1 1 Source Comments (unrecognize d section and content) In the event this informatio n is protected by the Federal Confidentiality of Alcohol and Drug Abuse Patient Records regulations: The Federal rules restrict any use of the information to criminally investigate or prosecute any alcohol or drug abuse patient.[facility] the event this information is protected by the Federal Confidentiality of Alcohol and Drug Abuse Patient Records regulations: The Federal rules restrict any use of the information to criminally investigate or prosecute any alcohol or drug abuse patient.[facility] HospitalIn the event this information is protected by the Federal Confidentiality of Alcohol and Drug Abuse Patient Records regulations: The Federal rules restrict any use of the information to criminally investigate or prosecute any alcohol or drug abuse patient.[facility] HospitalIn the event this information is protected by the Federal Confidentiality of Alcohol and Drug Abuse Patient Records regulations: The Federal rules restrict any use of the information to criminally investigate or prosecute any alcohol or drug abuse patient.[facility] HospitalIn the event this information is protected by the Federal Confidentiality of Alcohol and Drug Abuse Patient Records regulations: The Federal rules restrict any use of the information to criminally investigate or prosecute any alcohol or drug abuse patient.[facility] HospitalIn the event this information is protected by the Federal Confidentiality of Alcohol and Drug Abuse Patient Records regulations: The Federal rules restrict any use of the information to criminally investigate or prosecute any alcohol or drug abuse patient.[facility] HospitalIn the event this information is protected by the Federal Confidentiality of Alcohol and Drug Abuse Patient Records regulations: The Federal rules restrict any use of the information to criminally investigate or prosecute any alcohol or drug abuse patient.[facility]In the event this information is protected by the Federal Confidentiality of Alcohol and Drug Abuse Patient Records regulations: The Federal rules restrict any use of the information to criminally investigate or prosecute any alcohol or drug abuse patient.[facility] HospitalIn the event this information is protected by the Federal Confidentiality of Alcohol and Drug Abuse Patient Records regulations: The Federal rules restrict any use of the information to criminally investigate or prosecute any alcohol or drug abuse patient.[facility] HospitalIn the event this information is protected by the Federal Confidentiality of Alcohol and Drug Abuse Patient Records regulations: The Federal rules restrict any use of the information to criminally investigate or prosecute any alcohol or drug abuse patient.[facility] HospitalIn the event this information is protected by the Federal Confidentiality of Alcohol and Drug Abuse Patient Records regulations: The Federal rules restrict any use of the information to criminally investigate or prosecute any alcohol or drug abuse patient.[facility] HospitalIn the event this information is protected by the Federal Confidentiality of Alcohol and Drug Abuse Patient Records regulations: The Federal rules restrict any use of the information to criminally investigate or prosecute any alcohol or drug abuse patient.[facility] HospitalIn the event this information is protected by the Federal Confidentiality of Alcohol and Drug Abuse Patient Records regulations: The Federal rules restrict any use of the information to criminally investigate or prosecute any alcohol or drug abuse patient.[facility] HospitalIn the event this information is protected by the Federal Confidentiality of Alcohol and Drug Abuse Patient Records regulations: The Federal rules restrict any use of the information to criminally investigate or prosecute any alcohol or drug abuse patient.[facility] HospitalIn the event this information is protected by the Federal Confidentiality of Alcohol and Drug Abuse Patient Records regulations: The Federal rules restrict any use of the information to criminally investigate or prosecute any alcohol or drug abuse patient.[facility] HospitalIn the event this information is protected by the Federal Confidentiality of Alcohol and Drug Abuse Patient Records regulations: The Federal rules restrict any use of the information to criminally investigate or prosecute any alcohol or drug abuse patient.[facility] HospitalIn the event this information is protected by the Federal Confidentiality of Alcohol and Drug Abuse Patient Records regulations: The Federal rules restrict any use of the information to criminally investigate or prosecute any alcohol or drug abuse patient.[facility] FOR RECORDS PERTAINING TO PATIENTS WHO ARE [...] BE BASED ON THE PRIMARY CLINICAL RECORDS. [facility] [employer] [facility]. provides no warranty or guarantee of the accuracy or completeness of information in this document.
[2024-10-12 11:11] LABS: Alanine Aminotransferase 57 U/L (16-63); Aspartate Amino Transferase 32 U/L (15-37); Chol HDL Ratio 3.2; Cholesterol 159 mg/dL (<=200); HDL Cholesterol 50 mg/dL (40-60); LDL Cholesterol Calculated 90.6 mg/dL; Triglycerides 92 mg/dL (<=150); VLDL CHOLESTEROL 18.4 mg/dL
== END 2024-10-12 10:06 | disposition home or self-care (01) ==
PROVIDERS: PCP Nurse Practitioner; Visit Provider Internal Medicine Cardiovascular Disease
DX: E78.00 Pure hypercholesterolemia, unspecified (principal)
CPT/HCPCS: 36415; 80061; 84450; 84460

== ENCOUNTER 2024-10-25 07:48 | Outpatient (OUT) | payer MEDICARE, SELFPAY ==
--- NOTE | 2024-10-25 08:00 | CA_ITS ---
Patient Name: EUGENE BOLTON MR#: [id number] : 1955 Exam Date: 10/25/2024 Ordering Doctor: DR. FINESSE MEDELLIN M.D. ECHOCARDIOGRAM REPORT PROCEDURE: CA ECHO DOPPLER COMPLETE INDICATIONS: Chronic combined systolic and diastolic heart failure, CABG, stent, defibrillator, hypertension, diabetes COMPARISON: None. DESCRIPTION: COMPLETE ECHOCARDIOGRAM Real-time transthoracic echocardiography with 2D, M-mode, spectral and color flow Doppler performed. QUALITY: Technical quality was good. LEFT VENTRICLE: Moderate to severe dilatation. Normal left ventricular wall thickness. Systolic function is severely reduced. There is akinesis to hypokinesis of the mid to distal and apical segments. LV EF: Calculated left ventricular ejection fraction is 22%. Severely reduced left ventricular ejection fraction, (<25%). DIASTOLIC: Grade III diastolic dysfunction. ATRIAL SEPTUM: Visually appears intact. LEFT ATRIUM: Moderate dilatation. RIGHT ATRIUM: Moderate dilatation. RIGHT VENTRICLE: Mild dilatation. Systolic function appears reduced. Pacer wire present. TRICUSPID VALVE: Normal mobility and thickness. No stenosis with mild to moderate regurgitation. Doppler studies reveal moderately (45-60) elevated right sided pressures. RVSP 50 mmHg MITRAL VALVE: Mild mitral valve stenosis. There is no mitral annular calcification. Moderate mitral regurgitation. Normal thickness with decreased mobility. AORTIC VALVE: Normal trileaflet appearance. No visible sclerosis. Normal leaflet mobility. No evidence of aortic valve stenosis. No aortic regurgitation. AORTIC ROOT: Normal diameter and appearance, measuring 3.2 cm. PULMONIC VALVE: Normal thickness and mobility. No stenosis. No regurgitation. PERICARDIUM: No evidence of pericardial effusion. IVC: IVC is normal in size, does not fully collapse. PLEURA: CONCLUSION: 1. The left ventricle is moderately to severely dilated and exhibits severely reduced systolic function with segmental wall motion abnormalities. LVEF is calculated at 22%. 2. The right ventricle is mildly dilated with reduced systolic function. 3. Moderate mitral regurgitation. 4. Mild to moderate tricuspid regurgitation. 5. Grade 3 diastolic dysfunction. 6. Moderately elevated right-sided pressures. RVSP is 50 mmHg. Adult Echocardiography Procedure Report Left Ventricle LVEDD (3.7 - 5.6 cm): 6.55 cm LVESD (2.2 - 4.0 cm): 5.88 cm LVIVS thickness (0.6 - 1.2 cm): 0.83 cm LVPW thickness (0.5 - 1.0 cm): 0.97 cm LVOT Max Gradient: 1.59 mm[Hg] LVOT Area (cm2): 0.63 m/s Peak Velocity (LVOT): 0.63 m/s Mean Velocity (LVOT): 0.36 m/s LVOT Diameter 2.46 cm Left Atrium LA Volume Index (2D A2C): 44.37 ml/m2 Left Atrium Systolic Dimension: 4.53 cm Mitral Valve MV E to A Ratio: 4.85 Mitral Valve A-Wave Peak Velocity: 0.25 m/s Mitral Valve E-Wave Peak Velocity: 1.22 m/s Right Ventricle Aorta AO Root Diam: 3.17 cm Aortic Valve AoV Area (Peak Laith): 2.46 cm2, 2.46 cm2 AoV Area (VTI): 2.50 cm2, 2.50 cm2 Peak Velocity(Antegrade Flow): 1.22 m/s Peak Gradient(Antegrade Flow): 5.92 mm[Hg] Mean Velocity(Antegrade Flow): 0.85 m/s Mean Gradient(Antegrade Flow): 3.24 mm[Hg] Velocity Time Integral: 20.26 cm Tricuspid Valve Peak Velocity (Regurgitant Flow): 2.54 m/s, 3.18 m/s, 3.23 m/s Pulmonic Valve Mean Gradient: 0.87 mm[Hg] Mean Velocity: 0.43 m/s Peak Velocity: 0.68 m/s, 0.67 m/s Peak Gradient: 1.81 mm[Hg], 1.86 mm[Hg] Right Atrium Right Atrium Systolic Pressure: 95.34 ml, 95.34 ml Dictated by: Arnel Leal M.D. on 10/25/2024 at 18:36 Approved by: Arnel Leal M.D. on 10/25/2024 at 18:39
== END 2024-10-25 07:49 | disposition home or self-care (01) ==
LOC: CARD 07:48
PROVIDERS: PCP Nurse Practitioner; Visit Provider Internal Medicine Cardiovascular Disease
DX: I50.42 Chronic combined systolic (congestive) and diastolic (congestive) heart failure (principal)
CPT/HCPCS: 93306

== ENCOUNTER 2025-04-05 11:04 | Outpatient (OUT) | payer MEDICARE, SELFPAY ==
--- OUTSIDE RECORDS SUMMARY | 2025-04-05 11:13 | XMS_ITS | CCD ---
Author Organization [facility] CliniSyia Care Team Providers Care Laboratory Inspector Name Role Phone MANUEL, QUYEN Unavailable Unavailable MANUEL, QUYEN Unavailable Unavailable HOUSE, MARK Unavailable Unavailable HOUSE, MARK Unavailable Unavailable CARSON ASHLEY Consulting Unavailable JENNY, FRANCA Attending Unavailable JENNY, FRANCA Admitting Unavailable JENNY, FRANCA Consulting Unavailable Lily BARRAGAN, Serra Primary Care Provider Amol BARRAGAN, Zeeshan Trammell [...] Unavailable HOUSE, MARK P Referring Unavailable [facility], [facility] Primary Care Unavailable HOUSE, MARK P Referring Unavailable [facility], [facility] Primary Care Unavailable HOUSE, MARK P Referring Unavailable [facility], [facility] Primary Care Unavailable HOUSE, MARK P Referring Unavailable [facility], [facility] Primary Care Unavailable HOUSE, MARK P Referring Unavailable [facility], [facility] Primary Care Unavailable HOUSE, MARK P Referring Unavailable [facility], [facility] Primary Care Unavailable HOUSE, MARK P Referring Unavailable [facility], [facility] Primary Care Unavailable [facility], [facility] Referring Unavailable [facility], [facility] Primary Care Unavailable [facility], [facility] Referring Unavailable [facility], [facility] Primary Care Unavailable [facility], [facility] Referring Unavailable [facility], [facility] Primary Care Unavailable [facility], [facility] Referring Unavailable [facility], [facility] Primary Care Unavailable [facility], [facility] Referring Unavailable [facility], [facility] Primary Care Unavailable HOUSE, MARK P [...] Unavailable HOUSE, MARK P Primary Care Unavailable [facility], [facility] Referring Unavailable [facility]AD, [facility] Primary Care Unavailable ALI, MARLYS A Referring Unavailable [facility], [facility] Primary Care Unavailable ALI, MARLYS A Referring Unavailable [facility], [facility] Primary Care Unavailable ALI, MARLYS A Referring Unavailable [facility], [facility] Primary Care Unavailable HOUSE, MARK P Referring Unavailable [facility], [facility] Primary Care Unavailable ALI, MARLYS A Referring Unavailable [facility], [facility] Primary Care Unavailable ALI, MARLYS A Referring Unavailable [facility], [facility] Primary Care Unavailable ALI, MARLYS A Referring Unavailable [facility], [facility] Primary Care Unavailable ALI, MARLYS A Referring Unavailable [facility], [facility] Primary Care Unavailable ALI, MARLYS A Referring Unavailable [facility], [facility] Primary Care Unavailable ALI, MARLYS A Referring Unavailable [facility], [facility] Primary Care Unavailable ALI, MARLYS A Referring Unavailable [facility], [facility] Primary Care Unavailable ALI, MARLYS A Referring Unavailable [facility], [facility] Primary Care Unavailable ALI, MARLYS A Referring Unavailable [facility], [facility] Primary Care Unavailable Unavailable Primary Care Provider UnavailQuyen Ramirez Primary Care Provider Natalie BARRAGAN, Marlys Burroughs Unavailable [facility] Lui Unavailable Mark Tam DO Primary Care Provider Mark Tam DO Primary Care Provider Lily BARRAGAN, Primary Care Provider [phone] Mark Tam DO Primary Care Provider Christiano Tam MD Primary Care Provider [phone] Eliza BARROW, Lana Unavailable [phone] Shaikh Bautista MD Unavailable Ariane PRODUCT MARKETING MANAGER-BOOK EDITORMaame Primary Care Provider NUSRAT SANTOS Attending Unavailable MAAME THAKKAR Referring Unavailable MAAME THAKKAR Primary Care Unavailable Aichholz PRODUCT MARKETING MANAGER-BOOK EDITOR, Maame J Primary Care Provider MAAME THAKKAR Attending Unavailable MAAME THAKKAR Attending Unavailable LANA KAY Attending UnavailLAKESHA Frederick Referring Unavailable PROVIDER, UNKNOWN Primary Care Unavailable PRATEEK HOWELL Attending Unavailable PROVIDER, UNKNOWN Primary Care Unavailable PRATEEK HOWELL Attending Unavailable PROVIDER, UNKNOWN Primary Care Unavailable PROVIDER, UNKNOWN Primary Care Unavailable PROVIDER, UNKNOWN Primary Care Unavailable PROVIDER, UNKNOWN Primary Care Unavailable JOSE ALFREDO JACK Attending Unavailable NAKHLA, SHADY Referring Unavailable PROVIDER, UNKNOWN Primary Care Unavailable NAKHLA, SHADY Referring Unavailable PROVIDER, UNKNOWN Primary Care Unavailable NAKHLA, SHADY Referring Unavailable NAKHLA, SHADY Referring Unavailable PROVIDER, UNKNOWN Primary Care Unavailable EDUARDO HOLLAND Referring Unavailable PROVIDER, UNKNOWN Primary Care Unavailable KD CHRISTOPHER A Referring Unavailable PROVIDER, UNKNOWN Primary Care Unavailable PROVIDER, UNKNOWN Primary Care Unavailable NUSRAT BAÑUELOS Referring Unavailable ADIEL, ARSHNEEL Referring Unavailable PROVIDER, UNKNOWN Primary Care Unavailable ADIEL, ARSHNEEL Referring Unavailable KD CHRISTOPHER A Attending Unavailable PROVIDER, UNKNOWN Primary Care Unavailable NAKHLA, SHADY Admitting Unavailable PROVIDER, UNKNOWN Primary Care Unavailable PROVIDER, UNKNOWN Primary Care Unavailable PROVIDER, UNKNOWN Primary Care Unavailable MAURA JARRETTL Attending Unavailable PROVIDER, UNKNOWN Referring Unavailable AICHHOLZ, MAAME J Referring Unavailable AICHHOLZ, MAAME J Primary Care Unavailable MISYS, LOUIS Referring Unavailable AICHHOLZ, MAAME J Primary Care Unavailable NELLY MUNIZ E Admitting Unavailable NELLY MUNIZ Attending Unavailable GENEVAS NELLY E Referring Unavailable AICHHOLZ, MAAME J Primary Care Unavailable LOUIS, LOUIS Referring Unavailable AICHHOLZ, MAAME J Primary Care Unavailable VIGNESH, DIANELYSAR Attending Unavailable MANUEL, QUYEN Referring Unavailable MANUEL, QUYEN Attending Unavailable MANUEL, QUYEN Attending Unavailable MANUEL, QUYEN Referring Unavailable VIGNESH, SAMAR Attending Unavailable MANUEL, QUYEN Attending Unavailable JOEL, JOHN Referring Unavailable JOEL JOHN Referring Unavailable Allergies Allergy Classification Reported Allergen(s) Allergy Type Date of Onset Reaction(s) Facility (2 sources) codeine; Translations: [CODEINE PHOSPHATE] Drug Allergy 9 [facility] Repository (5 sources) Codeine; Translations: [codeine] Drug Allergy 3 [facility] Repository (20 sources) Codeine Drug Allergy 4 Dizziness, Other [facility] (7 sources) Lisinopril; Translations: [LISINOPRIL] Propensity to adverse reactions 5 [facility] (7 sources) metFORMIN; Translations: [METFORMIN] Drug Allergy 1 Diarrhea [facility] (1 source) atorvastatin; Translations: [ATORVASTATIN] Drug Allergy 3 [facility] Repository (1 source) Lovastatin; Translations: [LOVASTATIN] Drug Allergy 5 [facility] Repository (1 source) Simvastatin; Translations: [SIMVASTATIN] Drug Allergy 5 [facility] Repository Medications Current Medications Medication Drug Class(es) Dates Sig (Normalized) Sig (Original) amiodarone hydrochloride 200 mg oral tablet (20 sources) Antiarrhythmic Start: 09-17-2023 End: 11-13-2024 take 1 tablet by mouth once daily amiodarone (PACERONE) 200 mg tablet Take 1 tablet by mouth once daily. 09/17/2023 Active amoxicillin 875 mg / clavulanate 125 mg oral tablet (2 sources) Penicillin-class Antibacterial Start: 11-13-2024 End: 11-23-2024 take 1 tablet by mouth in the morning amoxicillin-clavula noman (Augmentin) 875-125 MG tablet Indications: Subacute maxillary sinusitis Take 1 tablet (875 mg) by mouth in the morning and 1 tablet (875 mg) before bedtime. Do all this for 10 days. Take with food. 20 tablet 11/13/2024 11/23/2024 Active apixaban 5 mg oral tablet (20 sources) Factor Xa Inhibitor Start: 08-31-2023 End: 06-29-2024 take 1 tablet by mouth twice daily apixaban (ELIQUIS) 5 mg tab(s) Take 1 tablet by mouth two times a day. 06/29/2024 Active aspirin 81 mg delayed release oral tablet (3 sources) Platelet Aggregation Inhibitor, Nonsteroidal Anti-inflammatory Drug take 1 tablet by mouth in the morning aspirin 81 MG EC tablet Take 81 mg by mouth in the morning. 0 Active cholecalciferol 0.025 mg oral tablet (3 sources) Vitamin D take 1 tablet by mouth [...] Platelet Inhibitor take 1 tablet by mouth once daily clopidogrel (PLAVIX) 75 mg tablet Take 75 mg by mouth once daily. Active digoxin 0.125 mg oral tablet (7 sources) Cardiac Glycoside Start: 09-16-2023 take 0.125 [...] mouth daily with breakfast. 06/29/2024 Active take 25 mg by mouth in the morni ng empagliflozin (Jardiance) 25 MG Indications: Heart Failure Take 25 mg by mouth in the morning. Active famotidine 20 mg oral tablet (6 sources) Histamine-2 Receptor Antagonist Start: 10-21-2023 take 1 tablet by mouth once daily famotidine (Pepcid) 20 MG tablet Take 20 mg by mouth Daily 10/21/2023 Active folic acid 1 mg oral tablet (16 sources) take 1 tablet by mouth once daily folic acid 1 mg tablet Take 1 mg by mouth once daily. Active furosemide 20 mg oral tablet (20 sources) Loop Diuretic Start: 08-25-2023 take 1 tablet by mouth in the morning furosemide (Lasix) 20 MG tablet Take 20 mg by mouth in the morning and 20 mg before bedtime. 08/25/2023 Active magnesium oxide 400 mg oral tablet (16 sources) Start: 06-28-2024 magnesium oxid e (MAG-OX) 400 mg (241.3 mg magnesium) tablet Take 1 tablet by mouth once daily. Patient should start on June 28, 2024. 06/28/2024 Active Start: 06-28-2024 take 1 tablet by jh th in the morning magnesium oxide (Mag-Ox) 400 MG tablet Take 400 mg by mouth in the morning. 06/28/2024 Active methotrexate 2.5 mg oral tablet (15 sources) Folate Analog Metabolic Inhibitor methotrexate 2.5 MG tablet Take 15 mg by mouth 1 (one) time per week. Active take 6 tablets by mouth every we ek methotrexate 2.5 mg chemo tablet Take 6 tablets by mouth once a week Active 24 hr metoprolol succinate 25 mg extended release oral tablet (20 sources) beta-Adrenergic Carlee Start: 08-30-2023 take 1 tablet by mouth once daily metoprolol succinate XL (Toprol-XL) 25 MG 24 hr tablet Indications: HFrEF (heart failure with reduced ejection fraction) ([facility]) Take 1 tablet (25 mg) by mouth [...] the morning. Active multivitamin/iron/folic acid (CENTRUM ORAL) (3 sources) multivitamin/iro n/folic acid (CENTRUM ORAL) Take by mouth. Active pantoprazole 40 mg delayed release oral tablet (19 sources) Proton Pump Inhibitor take 1 tablet by mouth once daily pantoprazole DR (PROTONIX) 40 mg tablet Take 40 mg by mouth once daily. Active rosuvastatin calcium 20 mg oral tablet [...] sulf-pot chloride-mag sulf 1.479-0.188- 0.225 gram tablet (3 sources) Start: 10-11-2024 sod sulf-pot chloride-mag sulf 1.479-0.188- [...] Active Start: 02-17-20[address] [facility] every twenty-four hours in the morning tamsulosin [...] infarction] Onset: 4 07-13-2023 Chronic Administrative/social admission (20 sources) Patient encounter status; Translations: [Persons encountering health services in other specified circumstances] Onset: 4 Resolved: 5 08-09-2023 Episodic Anxiety disorders (17 sources) Anxiety; Translations: [Anxiety disorder, unspecified] Onset: 4 06-13-2024 Chronic Cardiac dysrhythmias (20 sources) Ventricular tachycardia; Translations: [Paroxysmal ventricular tachycardia] Onset: 1 Resolved: 5 08-09-2023 Chronic Chronic obstructive pulmonary disease and bronchiectasis (20 [...] disease (20 sources) Atherosclerotic heart disease of [place] coronary artery without angina pectoris; Translations: [Coronary [...] 1 Resolved: 5 08-09-2023 Chronic Esophageal disorders (11 sources) Gastroesophageal reflux disease; Translations: [Gastro-esophageal reflux disease without esophagitis] Onset: 3 08-09-2023 Chronic Essential hypertension (20 sources) Essential (primary) hypertension; Translations: [Essential hypertension] Onset: 1 08-09-2023 Chronic Hyperplasia of prostate (20 sources) Benign prostatic hyperplasia; Translations: [Benign prostatic hyperplasia without lower urinary tract symptoms] Onset: 4 06-13-2024 Chronic Osteoarthritis (15 sources) Osteoarthritis; Translations: [Unspecified osteoarthritis, unspecified site] Onset: 3 08-09-2023 Chronic Other aftercare (1 source) prison (current) use of aspirin; Translations: [[employer] (CURRENT) USE OF ASPIRIN] Onset: 8 Episodic Other aftercare (1 source) prison (current) use of antithrombotics/antipl atelets; Translations: [CARE HOME (CURRENT) USE OF ANTITHROMBOTICS/ANTIPL ATELETS] Onset: 8 Episodic Other bone disease and musculoskeletal deformities (20 sources) History of amputation of left leg through femur; Translations: [Acquired absence of left leg above knee] Onset: 4 06-13-2024 Chronic Other connective tissue disease (2 sources) Muscle pain; Translations: [Myalgia, unspecified site] 08-09-2023 Episodic Other connective tissue disease (6 sources) Bilateral plantar fasciitis; Translations: [Plantar fascial fibromatosis] Onset: 5 09-18-2024 Episodic Other connective tissue disease (7 sources) Pain in right lower limb; Translations: [Pain in right leg] Onset: 5 09-18-2024 Episodic Other gastrointestinal disorders (10 sources) Stool DNA-based colorectal cancer screening positive; Translations: [Other fecal abnormalities] Onset: 5 09-18-2024 Episodic Other lower respiratory disease (3 sources) Cough; Translations: [COUGH] Onset: 1 Episodic Other nervous system disorders (11 sources) Phantom limb syndrome with pain; Translations: [Phantom limb syndrome with pain] Onset: 3 08-09-2023 Chronic Other nutritional; endocrine; and metabolic disorders (1 source) Ocular albinism, unspecified; 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, unspecified] Onset: 5 Chronic Other upper respiratory disease (4 sources) Allergic disposition; Translations: [Other allergic rhinitis] Onset: 5 11-13-2024 Chronic Other upper respiratory infections (4 sources) Acute maxillary sinusitis; Translations: [Acute maxillary sinusitis, unspecified] Onset: 5 11-13-2024 Episodic Meli-; endo-; and myocarditis; cardiomyopathy (3 sources) Dilated cardiomyopathy; Translations: [DILATED CARDIOMYOPATHY] Onset: 8 Chronic Residual codes; unclassified (2 sources) Other specified postprocedural states; Translations: [Other specified postprocedural states] Onset: 4 Episodic Rheumatoid arthritis and related disease (20 sources) Rheumatoid arthritis, unspecified; Translations: [Rheumatoid arthritis] Onset: 1 Resolved: 4 08-09-2023 Chronic Screening or history of mental health and substance abuse (2 sources) Personal history of nicotine dependence; Translations: [PERSONAL HISTORY OF NICOTINE DEPENDENCE] Onset: 8 Episodic Unclassified (2 sources) Unknown / UNK(Unknown) Onset: 8 Unclassified (2 sources) Positive Cologuard Onset: 5 Unclassified (2 sources) Autogenerated Problem Onset: 5 10-17-2024 Unclassified (1 source) Other persistent atrial fibrillation; Translations: [Persistent atrial fibrillation (HCC)] Onset: 4 Unclassified (2 sources) Longstanding persistent atrial fibrillation; Translations: [Longstanding persistent atrial fibrillation] Onset: 5 Unclassified (1 source) Ventricular tachycardia, unspecified; Translations: [Ventricular tachycardia, unspecified] Onset: 3 Viral infection (1 source) COVID-19; Translations: [COVID-19] Onset: 1 Past or Other Problems Problem Classification Problem Date Documented Da te Episodic/Chronic Cardiac dysrhythmias (2 sources) Palpitations; Translations: [Palpitations] Onset: 06-13-2024 05-29-2024 Episodic Complication of device; implant or graft (20 sources) Infection associated with cardiac implant; Translations: [Infection and inflammatory reaction due to other cardiac and vascular devices, implants and grafts, initial encounter] Onset: 06-13-2024 06-13-2024 Episodic Mood disorders (6 sources) Mood disorders Onset: 11-01-2023 11-01-2023 Nausea and vomiting (1 source) Nausea and vomiting Onset: 06-27-2024 Episodic Neoplasms of unspecified nature or uncertain behavior (1 source) Refractory anemia, unspecified; Translations: [Refractory anemia, unspecified] Onset: 10-30-2024 Episodic Open wounds of extremities (9 sources) Amputated left lower limb above knee; Translations: [Complete traumatic amputation at level between left hip and knee, initial encounter] Onset: 08-09-2023 Resolved: 09-18-2024 08-09-2023 Chronic Other aftercare (17 sources) Long-term current use of anticoagulant; Translations: [prison (current) use of anticoagulants] Onset: 11-01-2023 06-23-2024 Episodic Other aftercare (1 source) Encounter for therapeutic drug level monitoring; Translations: [Encounter for therapeutic drug level monitoring] Onset: 10-30-2024 Episodic Other bone disease and musculoskeletal deformities (9 sources) History of amputation of lower limb above knee; Translations: [Acquired absence of unspecified leg above knee] Onset: 03-17-2018 Resolved: 09-18-2024 08-09-2023 Chronic Other connective tissue disease (9 sources) Pain in right foot; Translations: [Pain in right foot] Onset: 08-09-2023 08-09-2023 Episodic Other gastrointestinal disorders (2 sources) Other fecal abnormalities; Translations: [Other fecal abnormalities] Onset: 10-11-2024 Episodic Other non-traumatic joint disorders (9 sources) Pain in right shoulder; Translations: [Pain in joint, shoulder region] Onset: 08-09-2023 08-09-2023 Episodic Otitis media and related conditions (6 sources) Acute suppurative otitis media without spontaneous rupture of ear drum; Translations: [Acute suppurative otitis media without spontaneous rupture of ear drum, left ear] Onset: 09-29-2023 Resolved: 09-18-2024 09-18-2024 Episodic Residual codes; unclassified (13 sources) H/O: atrial fibrillation; Translations: [Other specified postprocedural states] Onset: 06-22-2024 06-22-2024 Episodic Unclassified (2 sources) Patient encounter status 11-23-2024 Unclassified (1 source) Ventricular tachycardia, unspecified; Translations: [Ventricular tachycardia, unspecified] Onset: 03-30-2025 Results Test Name Value Interpretation Reference Range Facility Office Visiton 03-30-2025 Follow-up visit [id number] Judson Bolton 1955 M Date Provider Department Center 03/30/2025 [id number] MEDELLIN KENZIE [facility] Family History Problem Relation Age of Onset Coronary artery disease Mother Coronary artery disease Father Family Status - Relation Status Age at Mother Father Level of Service:78064 [place] OFFICE/OUTPATIENT ESTABLISHED MOD MDM 30 MIN Reason for Visit and Comments: Follow-up [201029] - Patient is here today for a routine 6 month follow up appointment. Patient states he feels fantastic. No cardiac complaints at this time Paroxysmal ventricular tachycardia [Other] Coronary Artery Disease [187] Hyperlipidemia [182] Hypertension [239230] Cardiomyopathy [104] - Ischemic Congestive Heart Failure [127] Atrial Fibrillation [80] COPD [313] Diabetes [34] Pacemaker [Other] Normal [facility] Orders Onlyon 03-30-2025 Orders Only [id number] Judson Bolton 1955 M Date Provider Department Center 03/30/2025 [facility]EL[facility] Family History Problem Relation Age of Onset Coronary artery disease Mother Coronary artery disease Father Family Status - Relation Status Age at Mother Father Normal [facility] C-REACTIVE PROTEINon 025 C REACTIVE PROTEIN 1.0 mg/dL High <=0.7 [facility] Comment on above: Performed By: #### C RP #### [facility] ([facility]) [address] [place] [id number] VIR CBC WITH AUTO DIFFERENTIALon 03-07-2025 BASOPHILS ABSOLUTE COUNT (10*3/UL) BY AUTOMATED COUNT 0.0 10*3/uL Normal 0.0-0.2 [facility] Comment on above: Performed By: #### C BCA #### [facility] ([facility]) [address] [place] [address] VIR BASOPHILS RELATIVE PERCENT BY AUTOMATED COUNT 0.7 % Normal [facility] Comment on above: Performed By: #### C BCA #### [facility] ([facility]) [address] [place] [address] VIR CELLAVISION DIFFERENTIAL TYPE AUTOMATED DIFFERENTIAL Normal [facility] Comment on above: Performed By: #### C BCA #### [facility] ([facility]) [address] [place] [address] VIR Eosinophils (Bld) [#/Vol] 0.1 10*3/uL Normal 0.0-0.4 [facility] Comment on above: Performed By: #### C BCA #### [facility] ([facility]) [address] [place] [address] VIR EOSINOPHILS RELATIVE PERCENT BY AUTOMATED COUNT 1.8 % Normal [facility] Comment on above: Performed By: #### C BCA #### [facility] ([facility]) [address] [place] [address] VIR Erythrocyte distribution width (RBC) [Ratio] 19.7 % High 11.5-15 [facility] Comment on above: Performed By: #### C BCA #### [facility] ([facility]) [address] [place] [address] VIR Hematocrit (Bld) [Volume fraction] 44.7 % Normal 39-50 [facility] Comment on above: Performed By: #### C BCA #### [facility] ([facility]) [address] [place] [address] VIR Hemoglobin (Bld) [Mass/Vol] 14.7 g/dL Normal 13-17 [facility] Comment on above: Performed By: #### C BCA #### [facility] ([facility]) [address] [place] [address] VIR LYMPHOCYTES ABSOLUTE COUNT (10*3/UL) BY AUTOMATED COUNT 0.7 10*3/uL Low 1.0-3.5 [facility] Comment on above: Performed By: #### C BCA #### [facility] ([facility]) [address] [place] [address] VIR LYMPHOCYTES RELATIVE PERCENT BY AUTOMATED COUNT 12.2 % Normal [facility] Comment on above: Performed By: #### C BCA #### [facility] ([facility]) [address] [place] [address] VIR MCH (RBC) [Entitic mass] 29.4 pg Normal 27-34 [facility] Comment on above: Performed By: #### C BCA #### [facility] ([facility]) [address] [place] [address] VIR MCHC (RBC) [Mass/Vol] 32.9 g/dL Normal 32-36 [facility] Comment on above: Performed By: #### C BCA #### [facility] ([facility]) [address] [place] [address] VIR MCV (RBC) [Entitic vol] 89 fL Normal 80-100 [facility] Comment on above: Performed By: #### C BCA #### [facility] ([facility]) [address] [place] [address] VIR MONOCYTES ABSOLUTE COUNT (10*3/UL) BY AUTOMATED COUNT 0.5 10*3/uL Normal 0.0-0.9 [facility] Comment on above: Performed By: #### C BCA #### [facility] ([facility]) [address] [place] [address] VIR MONOCYTES RELATIVE PERCENT BY AUTOMATED COUNT 7.7 % Normal [facility] Comment on above: Performed By: #### C BCA #### [facility] ([facility]) [address] [place] [address] VIR NEUTROPHILS ABSOLUTE COUNT BY AUTOMATED COUNT 4.6 10*3/uL Normal 1.5-6.6 [facility] Comment on above: Performed By: #### C BCA #### [facility] ([facility]) [address] [place] [address] VIR NEUTROPHILS RELATIVE PERCENT BY AUTOMATED COUNT 77.6 % Normal [facility] [facility] Comment on above: Performed By: #### C BCA #### [facility] ([facility]) [address] [place] [address] VIR Platelet mean volume (Bld) [Entitic vol] 8.4 fL Normal 7-12 [facility] Comment on above: Performed By: #### C BCA #### [facility] ([facility]) [address] [place] [address] VIR Platelets (Bld) [#/Vol] 240 10*3/uL Normal 150-450 [facility] Comment on above: Performed By: #### C BCA #### [facility] ([facility]) [address] [place] [address] VIR RBC COUNT 5.01 X10E12/L Normal 4.1-5.7 [facility] Comment on above: Performed By: #### C BCA #### [facility] ([facility]) [address] [place] [address] VIR WBC (Bld) [#/Vol] 6.0 10*3/uL Normal 4-11 [facility] Comment on above: Performed By: #### C BCA #### [facility] ([facility]) [address] [place] [address] VIR COMPREHENSIVE METABOLIC PANE Jayden 03-07-2025 Albumin [Mass/Vol] 4.3 g/dL Normal 3.2-5.3 [facility] Comment on above: Performed By: #### C MP #### [facility] ([facility]) [address] [place] [address] VIR ALP [Catalytic activity/Vol] 69 U/L Normal 39-130 [facility] Comment on above: Performed By: #### C MP #### [facility] ([facility]) [address] [place] [address] VIR ALT [Catalytic activity/Vol] 16 U/L Normal <=40 [facility] Comment on above: Performed By: #### C MP #### [facility] ([facility]) [address] [place] [address] VIR Anion gap [Moles/Vol] 12 mmol/L Normal 5-15 [facility] Comment on above: Performed By: #### C MP #### [facility] ([facility]) [address] [place] [address] VIR AST [Catalytic activity/Vol] 18 U/L Normal <=41 [facility] Comment on above: Performed By: #### C MP #### [facility] ([facility]) [address] [place] [address] VIR Bilirubin [Mass/Vol] 0.4 mg/dL Normal 0.3-1.2 [facility] Comment on above: Performed By: #### C MP #### [facility] ([facility]) [address] [place] [address] VIR Calcium [Mass/Vol] 8.7 mg/dL Normal 8.5-10.5 [facility] Comment on above: Performed By: #### C MP #### [facility] ([facility]) [address] [place] [address] VIR Chloride [Moles/Vol] 106 mmol/L Normal 98-109 [facility] Comment on above: Performed By: #### C MP #### [facility] ([facility]) [address] [place] [address] VIR CO2 [Moles/Vol] 20 mmol/L Low 22-32 [facility] Comment on above: Performed By: #### C MP #### [facility] ([facility]) [address] [place] [address] VIR Creatinine [Mass/Vol] 1.10 mg/dL Normal 0.60-1.30 [facility] Comment on above: Result Comment: METH OD TRACEABLE TO IDMS STANDARD Performed By: #### C MP #### [facility] ([facility]) [address] [place] [address] VIR GFR/1.73 sq M.predicted among non-blacks MDRD (S/P/Bld) [Vol rate/Area] 73 mL/min/{1.73_m2} Normal >=60 [facility] Comment on above: Result Comment: Repo rted eGFR is based on the CKD-EPI 2020 equation that does not use a race coefficient. Performed By: #### C MP #### [facility] ([facility]) [address] [place] [address] VIR Glucose [Mass/Vol] 187 mg/dL High 65-99 [facility] Comment on above: Performed By: #### C MP #### [facility] ([facility]) [address] [place] [address] VIR Potassium [Moles/Vol] 4.6 mmol/L Normal 3.5-5.0 [facility] Comment on above: Performed By: #### C MP #### [facility] ([facility]) [address] [place] [address] VIR Protein [Mass/Vol] 7.3 g/dL Normal 6.0-8.0 [facility] Comment on above: Performed By: #### C MP #### [facility] ([facility]) [address] [place] [address] VIR Sodium [Moles/Vol] 138 mmol/L Normal 134-146 [facility] Comment on above: Performed By: #### C MP #### [facility] ([facility]) [address] [place] [address] VIR Urea nitrogen [Mass/Vol] 23 mg/dL Normal 5-27 [facility] Comment on above: Performed By: #### C MP #### [facility] ([facility]) [address] [place] [address] VIR ERYTHROCYTE SEDIMENTATION RA TE (ESR)on 03-07-2025 ESR, ERYTHROCYTE SEDIMENTATION RATE 36 mm/h High 0-20 [facility] Comment on above: Performed By: #### E SR #### [facility] ([facility]) [address] [place] [address] VIR 36on 11-27-2024 36 Regarding echo from 10/25/2024: MD Lary Curry MA Ejection fraction remains low at 22%. Mitral regurgitation is moderate which we will continue to follow with echo, continue current management. Patient informed. Normal [facility] ECG COMPLETEon 11-23-2024 ECG COMPLETE Normal [facility] C-REACTIVE PROTEINon 025 C REACTIVE PROTEIN 0.9 mg/dL High <=0.7 [facility] Comment on above: Performed By: #### C RP #### [facility] ([facility]) [address] [place] [address] VIR CBC WITH AUTO DIFFERENTIALon 10-30-2024 BASOPHILS ABSOLUTE COUNT (10*3/UL) BY AUTOMATED COUNT 0.0 10*3/uL Normal [facility] Comment on above: Performed By: #### C BCA #### [facility] ([facility]) [address] [place] [address] VIR BASOPHILS RELATIVE PERCENT BY AUTOMATED COUNT 0.6 % Normal [facility] Comment on above: Performed By: #### C BCA #### [facility] ([facility]) [address] [place] [address] VIR CELLAVISION DIFFERENTIAL TYPE AUTOMATED DIFFERENTIAL Normal [facility] Comment on above: Performed By: #### C BCA #### [facility] ([facility]) [address] [place] [address] VIR Eosinophils (Bld) [#/Vol] 0.1 10*3/uL Normal [facility] Comment on above: Performed By: #### C BCA #### [facility] ([facility]) [address] [place] [address] VIR EOSINOPHILS RELATIVE PERCENT BY AUTOMATED COUNT 1.5 % Normal [facility] Comment on above: Performed By: #### C BCA #### [facility] ([facility]) [address] [place] [address] VIR Erythrocyte distribution width (RBC) [Ratio] 18.5 % High 11.5-15 [facility] Comment on above: Performed By: #### C BCA #### [facility] ([facility]) [address] [place] [address] VIR Hematocrit (Bld) [Volume fraction] 42.2 % Normal 39-50 [facility] Comment on above: Performed By: #### C BCA #### [facility] ([facility]) [address] [place] [address] VIR Hemoglobin (Bld) [Mass/Vol] 13.6 g/dL Normal 13-17 [facility] Comment on above: Performed By: #### C BCA #### [facility] ([facility]) [address] [place] [address] VIR LYMPHOCYTES ABSOLUTE COUNT (10*3/UL) BY AUTOMATED COUNT 0.5 10*3/uL Normal [facility] Comment on above: Performed By: #### C BCA #### [facility] ([facility]) [address] [place] [address] VIR LYMPHOCYTES RELATIVE PERCENT BY AUTOMATED COUNT 7.9 % Normal [facility] Comment on above: Performed By: #### C BCA #### [facility] ([facility]) [address] [place] [address] VIR MCH (RBC) [Entitic mass] 28.8 pg Normal 27-34 [facility] Comment on above: Performed By: #### C BCA #### [facility] ([facility]) [address] [place] [address] VIR MCHC (RBC) [Mass/Vol] 32.3 g/dL Normal 32-36 [facility] Comment on above: Performed By: #### C BCA #### [facility] ([facility]) [address] [place] [address] VIR MCV (RBC) [Entitic vol] 89 fL Normal 80-100 [facility] Comment on above: Performed By: #### C BCA #### [facility] ([facility]) [address] [place] [address] VIR MONOCYTES ABSOLUTE COUNT (10*3/UL) BY AUTOMATED COUNT 0.5 10*3/uL Normal [facility] Comment on above: Performed By: #### C BCA #### [facility] ([facility]) [address] [place] [address] VIR MONOCYTES RELATIVE PERCENT BY AUTOMATED COUNT 8.1 % Normal [facility] Comment on above: Performed By: #### C BCA #### [facility] ([facility]) [address] [place] [address] VIR NEUTROPHILS ABSOLUTE COUNT BY AUTOMATED COUNT 4.9 10*3/uL Normal [facility] Comment on above: Performed By: #### C BCA #### [facility] ([facility]) [address] [place] [address] VIR NEUTROPHILS RELATIVE PERCENT BY AUTOMATED COUNT 81.9 % Normal [facility] Comment on above: Performed By: #### C BCA #### [facility] ([facility]) [address] [place] [address] VIR Platelet mean volume (Bld) [Entitic vol] 8.3 fL Normal 7-12 [facility] Comment on above: Performed By: #### C BCA #### [facility] ([facility]) [address] [place] [address] VIR Platelets (Bld) [#/Vol] 241 10*3/uL Normal 150-450 [facility] Comment on above: Performed By: #### C BCA #### [facility] ([facility]) [address] [place] [address] VIR RBC COUNT 4.73 X10E12/L Normal 4.1-5.7 [facility] Comment on above: Performed By: #### C BCA #### [facility] ([facility]) [address] [place] [address] VIR WBC (Bld) [#/Vol] 6.0 10*3/uL Normal 4-11 [facility] Comment on above: Performed By: #### C BCA #### [facility] ([facility]) [address] [place] [address] VIR COMPREHENSIVE METABOLIC PANE Jayden 10-30-2024 Albumin [Mass/Vol] 4.5 g/dL Normal 3.2-5.3 [facility] Comment on above: Performed By: #### C MP #### [facility] ([facility]) [address] [place] [address] VIR ALP [Catalytic activity/Vol] 74 U/L Normal 39-130 [facility] Comment on above: Performed By: #### C MP #### [facility] ([facility]) [address] [place] [address] VIR ALT [Catalytic activity/Vol] 29 U/L Normal <=40 [facility] Comment on above: Performed By: #### C MP #### [facility] ([facility]) [address] [place] [address] VIR Anion gap [Moles/Vol] 16 mmol/L High 5-15 [facility] Comment on above: Performed By: #### C MP #### [facility] ([facility]) [address] [place] [address] VIR AST [Catalytic activity/Vol] 28 U/L Normal <=41 [facility] Comment on above: Performed By: #### C MP #### [facility] ([facility]) [address] [place] [address] VIR Bilirubin [Mass/Vol] 0.5 mg/dL Normal 0.3-1.2 [facility] Comment on above: Performed By: #### C MP #### [facility] ([facility]) [address] [place] [address] VIR Calcium [Mass/Vol] 9.4 mg/dL Normal 8.5-10.5 [facility] Comment on above: Performed By: #### C MP #### [facility] ([facility]) [address] [place] [address] VIR Chloride [Moles/Vol] 105 mmol/L Normal 98-109 [facility] Comment on above: Performed By: #### C MP #### [facility] ([facility]) [address] [place] [address] VIR CO2 [Moles/Vol] 19 mmol/L Low 22-32 [facility] Comment on above: Performed By: #### C MP #### [facility] ([facility]) [address] [place] [address] VIR Creatinine [Mass/Vol] 1.10 mg/dL Normal 0.60-1.30 [facility] Comment on above: Result Comment: METH OD TRACEABLE TO IDMS STANDARD Performed By: #### C MP #### [facility] ([facility]) [address] [place] [address] VIR GFR/1.73 sq M.predicted among non-blacks MDRD (S/P/Bld) [Vol rate/Area] 73 mL/min/{1.73_m2} Normal >=60 [facility] Comment on above: Result Comment: Repo rted eGFR is based on the CKD-EPI 2020 equation that does not use a race coefficient. Performed By: #### C MP #### [facility] ([facility]) [address] [place] [address] VIR Glucose [Mass/Vol] 177 mg/dL High 65-99 [facility] Comment on above: Performed By: #### C MP #### [facility] ([facility]) [address] [place] [address] VIR Potassium [Moles/Vol] 4.4 mmol/L Normal 3.5-5.0 [facility] Comment on above: Performed By: #### C MP #### [facility] ([facility]) [address] [place] [address] VIR Protein [Mass/Vol] 7.5 g/dL Normal 6.0-8.0 [facility] Comment on above: Performed By: #### C MP #### [facility] ([facility]) [address] [place] [address] VIR Sodium [Moles/Vol] 140 mmol/L Normal 134-146 [facility] Comment on above: Performed By: #### C MP #### [facility] ([facility]) [address] [place] [address] VIR Urea nitrogen [Mass/Vol] 25 mg/dL Normal 5-27 [facility] Comment on above: Performed By: #### C MP #### [facility] ([facility]) [address] [place] [address] VIR ERYTHROCYTE SEDIMENTATION RA TE (ESR)on 10-30-2024 ESR, ERYTHROCYTE SEDIMENTATION RATE 29 mm/h High 0-20 [facility] Comment on above: Performed By: #### E SR #### [facility] ([facility]) [address] [place] [address] VIR 36on 10-27-2024 36 MD Mary Ellen Curry MA LDL cholesterol is high at 90. The goal is 70. Increase Crestor to 40 mg daily with low-fat diet and recheck fasting lipids with AST ALT in 2 months Let message for patient to advise him of Dr. Medellin's recommendations. Normal [facility] Office Visiton 10-09-2024 Follow-up visit [id number] Judson Bolotn 1955 M Date Provider Department Center 10/09/2024 [id number] MEDELLIN [facility] Family History Problem Relation Age of Onset Coronary artery disease Mother Coronary artery disease Father Family Status - Relation Status Age at Mother Father Level of Service:37775 [place] OFFICE/OUTPATIENT ESTABLISHED MOD MDM 30 MIN Reason for Visit and Comments: 6 month follow up [Other] Congestive Heart Failure [127] Hypertension [968303] Cardiomyopathy [104] Coronary Artery Disease [187] Hyperlipidemia [182] Atrial Fibrillation [80] Normal [facility] HbA1c (Bld) [Mass fraction]o n 09-18-2024 Interpretation and review of laboratory results Abnormal [facility] - Hematology and Cell countson 09-18-2024 HbA1c (Bld) [Mass fraction] 7.80 % [facility] Office Visiton 09-07-2024 Follow-up visit [id number] AlanJudson watson E 1955 M Date Provider Department Center 09/07/2024 QUYEN BRANCH [facility] CARD MO HeartVAS Family History Problem Relation Age of Onset Coronary artery disease Mother Coronary artery disease Father Family Status - Relation Status Age at Mother Father Level of Service:38499 [place] OFFICE/OUTPATIENT ESTABLISHED MOD MDM 30 MIN Normal [facility] 36on 08-30-2024 36 Pt called to sandra roddy with Dr Jackson he was advised to call back on a weekly or biweekly basis. Pt was scheduled for device check 08/31 at 7:30 but states that when he lays on his right side he can feel his stomach jump with the pacemaker. Normal [facility] CNPNon 07-31-2024 CNPN Normal [facility] CNPNon 07-14-2024 CNPN Normal [facility] CNPNon 07-06-2024 CNPN Normal [facility] CNPNon 07-05-2024 CNPN Normal [facility] CNPNon 07-03-2024 CNPN Normal [facility] CNPTOUTREACHon 06-29-2024 CNPTOUTREACH Normal [facility] CASE MANAGEMon 06-27-2024 CASE MANAGEM Normal [facility] CBC panel Auto (Bld)on 06-27 Erythrocyte distribution width (RBC) [Ratio] 15.0 % Normal 11.5-15.0 [facility] Comment on above: Order Comment: Speci men Type: BLOOD SPECIMENOrdering Facility: [facility] Address: [address] [place] [address] Performed By: #### 5 8410-2 ####[facility] [id number] [address] [id number] [address] [place] Hematocrit (Bld) [Volume fraction] 38.6 % Low 39.0-51.0 [facility] Comment on above: Order Comment: Speci men Type: BLOOD SPECIMENOrdering Facility: [facility] Address: [address] [place] [address] Performed By: #### 5 8410-2 ####[facility] [id number] [place] [address] [place] Hemoglobin (Bld) [Mass/Vol] 12.6 g/dL Low 13.0-17.0 [facility] Comment on above: Order Comment: Speci men Type: BLOOD SPECIMENOrdering Facility: [facility] Address: [address] [place] [address] Performed By: #### 5 8410-2 ####[facility]IA [id number] [place] [address] [place] MCH (RBC) [Entitic mass] 31.9 pg Normal 26.0-34.0 [facility] Comment on above: Order Comment: Speci men Type: BLOOD SPECIMENOrdering Facility: [facility] Address: [address] [place] [address] Performed By: #### 5 8410-2 ####[facility] LABIA [id number] [place] [address] [place] MCHC (RBC) [Mass/Vol] 32.6 g/dL Normal 30.5-36.0 [facility] Comment on above: Order Comment: Speci men Type: BLOOD SPECIMENOrdering Facility: [facility] Address: [address] [place] [address] Performed By: #### 5 8410-2 ####[facility]IA [id number] [place] [address] [place] MCV (RBC) [Entitic vol] 97.7 fL Normal 80.0-100.0 [facility] Comment on above: Order Comment: Speci men Type: BLOOD SPECIMENOrdering Facility: [facility] Address: [address] [place] [address] Performed By: #### 5 8410-2 ####[facility] [id number] [place] [address] [place] Nucleated RBC (Bld) [#/Vol] 10*3/uL Normal <0.01 [facility] Comment on above: Order Comment: Speci men Type: BLOOD SPECIMENOrdering Facility: [facility] Address: [address] [place] [address] Performed By: #### 5 8410-2 ####[facility] [id number] [place] [address] [place] Platelet mean volume (Bld) [Entitic vol] 9.3 fL Normal 9.0-12.7 [facility] Comment on above: Order Comment: Speci men Type: BLOOD SPECIMENOrdering Facility: [facility] Address: [address] [place] [address] Performed By: #### 5 8410-2 ####[facility] [id number] [place] [address] [place] Platelets (Bld) [#/Vol] 249 10*3/uL Normal 150-400 [facility] Comment on above: Order Comment: Speci men Type: BLOOD SPECIMENOrdering Facility: [facility] Address: [address] [place] [address] Performed By: #### 5 8410-2 ####[facility] [id number] [place] [address] [place] RBC (Bld) [#/Vol] 3.95 10*6/uL Low 4.20-6.00 [facility] Comment on above: Order Comment: Speci men Type: BLOOD SPECIMENOrdering Facility: [facility] Address: [address] [place] [address] Performed By: #### 5 8410-2 ####[facility] LABCL[facility] [id number] [address] [address] [place] WBC (Bld) [#/Vol] 7.25 10*3/uL Normal 3.70-11.00 [facility] Comment on above: Order Comment: Speci men Type: BLOOD SPECIMENOrdering Facility: [facility] Address: [address] [place], [place] [id number] Performed By: #### 5 8410-2 ####[facility] LABIA [id number] [place] [id number] [place] CNDSon 06-27-2024 CNDS Normal [facility] CONSULT PROGon 06-27-2024 CONSULT PROG Normal [facility] CONSULT PROG Normal [facility] CONSULT PROG Normal [facility] Comprehensive metabolic 2000 panelon 06-27-2024 Albumin [Mass/Vol] 3.6 g/dL Low 3.9-4.9 [facility] Comment on above: Order Comment: Speci men Type: BLOOD SPECIMENOrdering Facility: [facility] Address: [address] [place], [place] [id number] Performed By: #### 2 4323-8 ####[facility] LABIA [id number] [place] [id number] [place] ALP [Catalytic activity/Vol] 94 U/L Normal 38-113 [facility] Comment on above: Order Comment: Speci men Type: BLOOD SPECIMENOrdering Facility: [facility] Address: [address] [place] [address] Performed By: #### 2 4323-8 ####[facility]IA [id number] [place] [id number] [place] ALT [Catalytic activity/Vol] 44 U/L Normal 10-54 [facility] Comment on above: Order Comment: Speci men Type: BLOOD SPECIMENOrdering Facility: [facility] Address: [address] [place] [address] Performed By: #### 2 4323-8 ####[facility] LABCLIA [id number] [place], [place] [address] [place] Anion gap [Moles/Vol] 16 mmol/L High 8-15 [facility] Comment on above: Order Comment: Speci men Type: BLOOD SPECIMENOrdering Facility: [facility] Address: [address] [place] [address] Performed By: #### 2 4323-8 ####[facility] LABCLIA [id number] [place] [address] [place] AST [Catalytic activity/Vol] 29 U/L Normal 14-40 [facility] Comment on above: Order Comment: Speci men Type: BLOOD SPECIMENOrdering Facility: [facility] Address: [address] [place] [address] Performed By: #### 2 4323-8 ####[facility] LABCLIA [id number] [place] [address] [place] Bilirubin [Mass/Vol] 0.3 mg/dL Normal 0.2-1.3 [facility] Comment on above: Order Comment: Speci men Type: BLOOD SPECIMENOrdering Facility: [facility] Address: [address] [place] [address] Performed By: #### 2 4323-8 ####[facility] LABCLIA [id number] [place] [address] [place] Calcium [Mass/Vol] 8.8 mg/dL Normal 8.5-10.2 [facility] Comment on above: Order Comment: Speci men Type: BLOOD SPECIMENOrdering Facility: [facility] Address: [address] [place] [address] Performed By: #### 2 4323-8 ####[facility] LABCLIA [id number] [place] [id number] [place] Chloride [Moles/Vol] 101 mmol/L Normal 98-107 [facility] Comment on above: Order Comment: Speci men Type: BLOOD SPECIMENOrdering Facility: [facility] Address: [address] [place] [address] Performed By: #### 2 4323-8 ####[facility] LABCLIA [id number] [place] [address] [place] CO2 [Moles/Vol] 16 mmol/L Low 22-30 [facility] Comment on above: Order Comment: Speci men Type: BLOOD SPECIMENOrdering Facility: [facility] Address: [address] [place] [address] Performed By: #### 2 4323-8 ####[facility] LABIA [id number] [place] [address] [place] Creatinine [Mass/Vol] 1.05 mg/dL Normal 0.73-1.22 [facility] Comment on above: Order Comment: Speci men Type: BLOOD SPECIMENOrdering Facility: [facility] Address: [address] [place] [address] Performed By: #### 2 4323-8 ####[facility] LABIA [id number] [address] STATES OF [facility] Creatinine and Glomerular filtration rate.predicted panel (S/P/Bld) 77 mL/min/1.73m??? Normal >=60 [facility] Comment on above: Order Comment: Speci men Type: BLOOD SPECIMENOrdering Facility: [facility] Address: [address] [place] [address] Result Comment: Elvia mated Glomerular Filtration Rate [...] actual GFR. Performed By: #### 2 4323-8 ####[facility] LABCLIA [id number] [place] [address] [place] Glucose [Mass/Vol] 150 mg/dL High 74-99 [facility] Comment on above: Order Comment: Speci men Type: BLOOD SPECIMENOrdering Facility: [facility] Address: [address] [place] [address] Result Comment: The [place] [employer] (ADA) provides guidance for cutoff [...] Standards of Medical Care in Diabetes 2016, [place] [employer]. Diabetes Care. 2016.39(Suppl 1). Performed By: #### 2 4323-8 ####[facility] LABCLIA [id number] [place] [address] [place] Potassium [Moles/Vol] 4.5 mmol/L Normal 3.7-5.1 [facility] Comment on above: Order Comment: Speci men Type: BLOOD SPECIMENOrdering Facility: [facility] Address: [address] [place], [place] [address] Performed By: #### 2 4323-8 ####[facility] LABCLIA [id number] [place] [address] [place] Protein [Mass/Vol] 7.0 g/dL Normal 6.3-8.0 [facility] Comment on above: Order Comment: Speci men Type: BLOOD SPECIMENOrdering Facility: [facility] Address: [address] [place], [place] [address] Performed By: #### 2 4323-8 ####[facility] LABCLIA [id number] [place] [address] [place] Sodium [Moles/Vol] 133 mmol/L Low 136-144 [facility] Comment on above: Order Comment: Speci men Type: BLOOD SPECIMENOrdering Facility: [facility] Address: [address] [place] [address] Performed By: #### 2 4323-8 ####[facility] LABCLIA [id number] [place] [address] [place] Urea nitrogen [Mass/Vol] 17 mg/dL Normal 9-24 [facility] Comment on above: Order Comment: Speci men Type: BLOOD SPECIMENOrdering Facility: [facility] Address: [address] [place] [address] Performed By: #### 2 4323-8 ####[facility] LABCLIA [id number] [place] [address] [place] NUTRITIONon 06-27-2024 NUTRITION Normal [facility] Basic metabolic 2000 panelon 06-26-2024 Anion gap [Moles/Vol] 14 mmol/L Normal 8-15 [facility] Comment on above: Order Comment: Speci men Type: BLOOD SPECIMENOrdering Facility: [facility] Address: [address] [place] [address] Performed By: #### 2 4321-2, ####[facility] LABCLIA [id number] [place] [address] [place] Calcium [Mass/Vol] 9.0 mg/dL Normal 8.5-10.2 [facility] Comment on above: Order Comment: Speci men Type: BLOOD SPECIMENOrdering Facility: [facility] Address: [address] [place] [address] Performed By: #### 2 4321-2, ####[facility] LABCLIA [id number] [place] [address] [place] Chloride [Moles/Vol] 103 mmol/L Normal 98-107 [facility] Comment on above: Order Comment: Speci men Type: BLOOD SPECIMENOrdering Facility: [facility] Address: [address] [place] [address] Performed By: #### 2 432-2, ####[facility] LABCLIA [id number] [place] [id number] [place] CO2 [Moles/Vol] 20 mmol/L Low 22-30 [facility] Comment on above: Order Comment: Speci men Type: BLOOD SPECIMENOrdering Facility: [facility] Address: [address] [place] [address] Performed By: #### 2 4322, ####[facility] LABCLIA [id number] [place] [address] [place] Creatinine [Mass/Vol] 1.00 mg/dL Normal 0.73-1.22 [facility] Comment on above: Order Comment: Speci men Type: BLOOD SPECIMENOrdering Facility: [facility] Address: [address] [place] [address] Performed By: #### 2 432-, ####[facility] LABCLIA [id number] [address] [place] Creatinine and Glomerular filtration rate.predicted panel (S/P/Bld) 81 mL/min/1.73m??? Normal >=60 [facility] Comment on above: Order Comment: Speci men Type: BLOOD SPECIMENOrdering Facility: [facility] Address: [address] [place] [address] Result Comment: Elvia mated Glomerular Filtration Rate [...] actual GFR. Performed By: #### 2 432-2, ####[facility] LABCLIA [id number] [place] [address] [place] Glucose [Mass/Vol] 163 mg/dL High 74-99 [facility] Comment on above: Order Comment: Speci men Type: BLOOD SPECIMENOrdering Facility: [facility] Address: [address] [place] [address] Result Comment: The [place] Diabetes Association (ADA) provides guidance for cutoff [...] Standards of Medical Care in Diabetes 2016, [place] [employer]. Diabetes Care. 2016.39(Suppl 1). Performed By: #### 2 4320-07, ####[facility] LABCLIA [id number] [place] [address] [place] Potassium [Moles/Vol] 4.1 mmol/L Normal 3.7-5.1 [facility] Comment on above: Order Comment: Speci men Type: BLOOD SPECIMENOrdering Facility: [facility] Address: [address] [place] [address] Performed By: #### 2 4320-07, ####[facility] LABCLIA [id number] [place] [address] [place] Sodium [Moles/Vol] 137 mmol/L Normal 136-144 [facility] Comment on above: Order Comment: Speci men Type: BLOOD SPECIMENOrdering Facility: [facility] Address: [address] [place] [address] Performed By: #### 2 4320-07, ####[facility] LABCLIA [id number] [place] [address] [place] Urea nitrogen [Mass/Vol] 16 mg/dL Normal 9-24 [facility] Comment on above: Order Comment: Speci men Type: BLOOD SPECIMENOrdering Facility: [facility] Address: [address] [place] [address] Performed By: #### 2 4321-2, 55998-4 ####[facility] LABIA [id number] [place] [address] [place] CASE MANAGEMon 06-26-2024 CASE MANAGEM Normal [facility] CONSULT PROGon 06-26-2024 CONSULT PROG Normal [facility] CONSULT PROG Normal [facility] ECG COMPLETEon 06-26-2024 ECG COMPLETE Normal [facility] Magnesium SerPl-mCncon 06-26 Magnesium [Mass/Vol] 2.4 mg/dL High 1.7-2.3 [facility] Comment on above: Order Comment: Speci men Type: BLOOD SPECIMENOrdering Facility: [facility] Address: [address] [place] [address] Performed By: #### 2 4321-2, ####[facility] LABCLIA [id number] [place] [address] [place] THERAPY NTon 06-26-2024 THERAPY NT Normal [facility] Vancomycin Lima SerPl-mCncon 06-26-2024 Vancomycin random [Mass/Vol] 19.1 ug/mL Normal 10.0-20.0 [facility] Comment on above: Order Comment: Speci men Type: BLOOD SPECIMENOrdering Facility: [facility] Address: [address] [place] [address] Result Comment: Refe rence ranges and high/low indicator flags are provided as general guidelines only. The treating physician must determine appropriate target levels/dosing based on the specific clinical situation. Performed By: #### 4 091-5 ####[facility] LABCLIA [id number] [place] [address] [place] Basic metabolic 2000 panelon 06-25-2024 Anion gap [Moles/Vol] 13 mmol/L Normal 8-15 [facility] Comment on above: Order Comment: Speci men Type: BLOOD SPECIMENOrdering Facility: [facility] Address: [address] [place] [address] Performed By: #### 2 4321-2 ####[facility] LABCLIA [id number] [place] [address] [place] Calcium [Mass/Vol] 9.0 mg/dL Normal 8.5-10.2 [facility] Comment on above: Order Comment: Speci men Type: BLOOD SPECIMENOrdering Facility: [facility] Address: [address] [place] [address] Performed By: #### 2 4321-2 ####[facility] LABCLIA [id number] [place] [address] [place] Chloride [Moles/Vol] 103 mmol/L Normal 98-107 [facility] Comment on above: Order Comment: Speci men Type: BLOOD SPECIMENOrdering Facility: [facility] Address: [address] [place] [address] Performed By: #### 2 4321-2 ####[facility] LABCLIA [id number] [place] [address] [place] CO2 [Moles/Vol] 20 mmol/L Low 22-30 [facility] Comment on above: Order Comment: Speci men Type: BLOOD SPECIMENOrdering Facility: [facility] Address: [address] [place], [place] [address] Performed By: #### 2 4321-2 ####[facility] LABCLIA [id number] [place] [address] [place] Creatinine [Mass/Vol] 1.00 mg/dL Normal 0.73-1.22 [facility] Comment on above: Order Comment: Speci men Type: BLOOD SPECIMENOrdering Facility: [facility] Address: [address] [place] [address] Performed By: #### 2 4321-2 ####[facility] LABIA [id number] [place] [address] [place] Creatinine and Glomerular filtration rate.predicted panel (S/P/Bld) 81 mL/min/1.73m??? Normal >=60 [facility] Comment on above: Order Comment: Wes guerin Type: BLOOD SPECIMENOrdering Facility: [facility] Address: [address] [place] [address] Result Comment: Elvia mated Glomerular Filtration Rate [...] actual GFR. Performed By: #### 2 4321-2 ####[facility] LABIA [id number] [place] [address] [place] Glucose [Mass/Vol] 181 mg/dL High 74-99 [facility] Comment on above: Order Comment: Wes troung Type: BLOOD SPECIMENOrdering Facility: [facility] Address: [address] [place] [address] Result Comment: The [place] Diabetes [employer] (ADA) provides guidance for cutoff [...] Standards of Medical Care in Diabetes 2016, [place] [employer]. Diabetes Care. 2016.39(Suppl 1). Performed By: #### 2 4321-2 ####[facility] LABCLIA [id number] [place] [address] [place] Potassium [Moles/Vol] 3.9 mmol/L Normal 3.7-5.1 [facility] Comment on above: Order Comment: Speci men Type: BLOOD SPECIMENOrdering Facility: [facility] Address: [address] [place] [address] Performed By: #### 2 4321-2 ####[facility] LABIA [id number] [place] [address] [place] Sodium [Moles/Vol] 136 mmol/L Normal 136-144 [facility] Comment on above: Order Comment: Speci men Type: BLOOD SPECIMENOrdering Facility: [facility] Address: [address] [place] [address] Performed By: #### 2 4321-2 ####[facility] LABIA [id number] [place] [address] [place] Urea nitrogen [Mass/Vol] 17 mg/dL Normal 9-24 [facility] Comment on above: Order Comment: Speci men Type: BLOOD SPECIMENOrdering Facility: [facility] Address: [address] [place] [address] Performed By: #### 2 4321-2 ####[facility] LABIA [id number] [place] [address] [place] CBC W Auto Differential pane l (Bld)on 06-25-2024 Basophils (Bld) [#/Vol] 0.04 10*3/uL Normal <0.11 [facility] Comment on above: Order Comment: Speci men Type: BLOOD SPECIMENOrdering Facility: [facility] Address: [address] [place] [address] Performed By: #### 5 7021-8 ####[facility] LABIA [id number] [place] [address] [place] Basophils/100 WBC (Bld) 0.6 % Normal [facility] Comment on above: Order Comment: Speci men Type: BLOOD SPECIMENOrdering Facility: [facility] Address: [address] [place] [address] Performed By: #### 5 7021-8 ####[facility] LABCLIA [id number] [place] [address] [place] Differential cell count method Nom (Bld) Auto Normal [facility] Comment on above: Order Comment: Speci men Type: BLOOD SPECIMENOrdering Facility: [facility] Address: [address] [place] [address] Performed By: #### 5 7021-8 ####[facility] LABCLIA [id number] [place] [address] [place] Eosinophils (Bld) [#/Vol] 0.21 10*3/uL Normal <0.46 [facility] Comment on above: Order Comment: Speci men Type: BLOOD SPECIMENOrdering Facility: [facility] Address: [address] [place] [address] Performed By: #### 5 7021-8 ####[facility] LABCLIA [id number] [place] [address] [place] Eosinophils/100 WBC (Bld) 2.9 % Normal [facility] Comment on above: Order Comment: Speci men Type: BLOOD SPECIMENOrdering Facility: [facility] Address: [address] [place] [address] Performed By: #### 5 7021-8 ####[facility] LABCLIA [id number] [place] [address] [place] Erythrocyte distribution width (RBC) [Ratio] 15.0 % Normal 11.5-15.0 [facility] Comment on above: Order Comment: Speci men Type: BLOOD SPECIMENOrdering Facility: [facility] Address: [address] [place] [address] Performed By: #### 5 7021-8 ####[facility] LABCLIA [id number] [place] [address] [place] Hematocrit (Bld) [Volume fraction] 34.7 % Low 39.0-51.0 [facility] Comment on above: Order Comment: Speci men Type: BLOOD SPECIMENOrdering Facility: [facility] Address: [address] [place] [address] Performed By: #### 5 7021-8 ####[facility] LABIA [id number] [place] [address] [place] Hemoglobin (Bld) [Mass/Vol] 11.5 g/dL Low 13.0-17.0 [facility] Comment on above: Order Comment: Speci men Type: BLOOD SPECIMENOrdering Facility: [facility] Address: [address] [place] [address] Performed By: #### 5 7021-8 ####[facility] LABIA [id number] [place] [address] [place] Immature granulocytes (Bld) [#/Vol] 0.08 10*3/uL Normal <0.10 [facility] Comment on above: Order Comment: Speci men Type: BLOOD SPECIMENOrdering Facility: [facility] Address: [address] [place] [address] Performed By: #### 5 7021-8 ####[facility] LABIA [id number] [place] [address] [place] Immature granulocytes/100 WBC (Bld) 1.1 % Normal [facility] Comment on above: Order Comment: Speci men Type: BLOOD SPECIMENOrdering Facility: [facility] Address: [address] [place] [address] Performed By: #### 5 7021-8 ####[facility] LABIA [id number] [place] [address] [place] Lymphocytes (Bld) [#/Vol] 0.66 10*3/uL Low 1.00-4.00 [facility] Comment on above: Order Comment: Speci men Type: BLOOD SPECIMENOrdering Facility: [facility] Address: [address] [place] [address] Performed By: #### 5 7021-8 ####[facility] LABCLIA [id number] [place] [address] [place] Lymphocytes/100 WBC (Bld) 9.2 % Normal [facility] Comment on above: Order Comment: Speci men Type: BLOOD SPECIMENOrdering Facility: [facility] Address: [address] [place] [address] Performed By: #### 5 7021-8 ####[facility] LABIA [id number] [place] [address] [place] MCH (RBC) [Entitic mass] 31.3 pg Normal 26.0-34.0 [facility] Comment on above: Order Comment: Speci men Type: BLOOD SPECIMENOrdering Facility: [facility] Address: [address] [place] [address] Performed By: #### 5 7021-8 ####[facility] LABIA [id number] [place] [address] [place] MCHC (RBC) [Mass/Vol] 33.1 g/dL Normal 30.5-36.0 [facility] Comment on above: Order Comment: Speci men Type: BLOOD SPECIMENOrdering Facility: [facility] Address: [address] [place] [address] Performed By: #### 5 7021-8 ####[facility] LABCLIA [id number] [place] [address] [place] MCV (RBC) [Entitic vol] 94.6 fL Normal 80.0-100.0 [facility] Comment on above: Order Comment: Speci men Type: BLOOD SPECIMENOrdering Facility: [facility] Address: [address] [place] [address] Performed By: #### 5 7021-8 ####[facility] LABCLIA [id number] [place] [address] [place] Monocytes (Bld) [#/Vol] 0.89 10*3/uL High <0.87 [facility] Comment on above: Order Comment: Speci men Type: BLOOD SPECIMENOrdering Facility: [facility] Address: [address] [place] [address] Performed By: #### 5 7021-8 ####[facility] LABCLIA [id number] [place] [address] [place] Monocytes/100 WBC (Bld) 12.4 % Normal [facility] Comment on above: Order Comment: Speci men Type: BLOOD SPECIMENOrdering Facility: [facility] Address: [address] [place] [address] Performed By: #### 5 7021-8 ####[facility] LABCLIA [id number] [place] [address] [place] Neutrophils (Bld) [#/Vol] 5.32 10*3/uL Normal 1.45-7.50 [facility] Comment on above: Order Comment: Speci men Type: BLOOD SPECIMENOrdering Facility: [facility] Address: [address] [place] [address] Performed By: #### 5 7021-8 ####[facility] LABCLIA [id number] [place] [address] [place] Neutrophils/100 WBC (Bld) 73.8 % Normal [facility] Comment on above: Order Comment: Speci men Type: BLOOD SPECIMENOrdering Facility: [facility] Address: [address] [place] [address] Performed By: #### 5 7021-8 ####[facility] LABCLIA [id number] [place] [address] [place] Nucleated RBC (Bld) [#/Vol] 10*3/uL Normal <0.01 [facility] Comment on above: Order Comment: Speci men Type: BLOOD SPECIMENOrdering Facility: [facility] Address: [address] [place] [address] Performed By: #### 5 7021-8 ####[facility] LABCLIA [id number] [place] [address] [place] Nucleated RBC/100 WBC (Bld) [Ratio] 0.0 /100 WBC Normal [facility] Comment on above: Order Comment: Speci men Type: BLOOD SPECIMENOrdering Facility: [facility] Address: [address] [place] [address] Performed By: #### 5 7021-8 ####[facility] LABCLIA [id number] [place] [address] [place] Platelet mean volume (Bld) [Entitic vol] 9.8 fL Normal 9.0-12.7 [facility] Comment on above: Order Comment: Speci men Type: BLOOD SPECIMENOrdering Facility: [facility] Address: [address] [place] [address] Performed By: #### 5 7021-8 ####[facility] LABIA [id number] [place] [address] [place] Platelets (Bld) [#/Vol] 187 10*3/uL Normal 150-400 [facility] Comment on above: Order Comment: Speci men Type: BLOOD SPECIMENOrdering Facility: [facility] Address: [address] [place] [address] Performed By: #### 5 7021-8 ####[facility] LABCLIA [id number] [place] [address] [place] RBC (Bld) [#/Vol] 3.67 10*6/uL Low 4.20-6.00 [facility] Comment on above: Order Comment: Speci men Type: BLOOD SPECIMENOrdering Facility: [facility] Address: [address] [place] [address] Performed By: #### 5 7021-8 ####[facility] LABCLIA [id number] [place] [address] [place] WBC (Bld) [#/Vol] 7.20 10*3/uL Normal 3.70-11.00 [facility] Comment on above: Order Comment: Speci men Type: BLOOD SPECIMENOrdering Facility: [facility] Address: [address] [place] [address] Performed By: #### 5 7021-8 ####[facility] LABCLIA [id number] [place] [address] [place] Hepatic function 2000 panelo n 06-25-2024 Albumin [Mass/Vol] 3.6 g/dL Low 3.9-4.9 [facility] Comment on above: Order Comment: Speci men Type: BLOOD SPECIMENOrdering Facility: [facility] Address: [address] [place] [address] Performed By: #### 2 4325-3 ####[facility] LABCLIA [id number] [place] [address] [place] ALP [Catalytic activity/Vol] 92 U/L Normal 38-113 [facility] Comment on above: Order Comment: Speci men Type: BLOOD SPECIMENOrdering Facility: [facility] Address: [address] [place] [address] Performed By: #### 2 4325-3 ####[facility] LABCLIA [id number] [place] [address] [place] ALT [Catalytic activity/Vol] 52 U/L Normal 10-54 [facility] Comment on above: Order Comment: Speci men Type: BLOOD SPECIMENOrdering Facility: [facility] Address: [address] [place], [place] [address] Performed By: #### 2 4325-3 ####[facility] LABCLIA [id number] [place] [address] [place] AST [Catalytic activity/Vol] 23 U/L Normal 14-40 [facility] Comment on above: Order Comment: Speci men Type: BLOOD SPECIMENOrdering Facility: [facility] Address: [address] [place] [address] Performed By: #### 2 4325-3 ####[facility] LABCLIA [id number] [place] [address] [place] Bilirubin [Mass/Vol] 0.3 mg/dL Normal 0.2-1.3 [facility] Comment on above: Order Comment: Speci men Type: BLOOD SPECIMENOrdering Facility: [facility] Address: [address] [place] [address] Performed By: #### 2 4325-3 ####[facility] LABIA [id number] [place] [address] [place] Bilirubin.conjugat ed [Mass/Vol] mg/dL Normal <0.2 [facility] Comment on above: Order Comment: Speci men Type: BLOOD SPECIMENOrdering Facility: [facility] Address: [address] [place] [address] Performed By: #### 2 4325-3 ####[facility] LABIA [id number] [place] [address] [place] Protein [Mass/Vol] 6.8 g/dL Normal 6.3-8.0 [facility] Comment on above: Order Comment: Speci men Type: BLOOD SPECIMENOrdering Facility: [facility] Address: [address] [place] [address] Performed By: #### 2 4325-3 ####[facility] LABCLIA [id number] [place] [address] [place] Magnesium SerPl-mCncon 06-25 Magnesium [Mass/Vol] 2.3 mg/dL Normal 1.7-2.3 [facility] Comment on above: Order Comment: Speci men Type: BLOOD SPECIMENOrdering Facility: [facility] Address: [address] [place] [address] Performed By: #### 1 9123-9 ####[facility] LABCLIA [id number] [address] [address] [place] XR CHEST 1V FRONTAL PORTon 1 08-26-2023 XR CHEST 1V FRONTAL PORT Normal [facility] Basic metabolic 2000 panelon 06-24-2024 Anion gap [Moles/Vol] 14 mmol/L Normal 8-15 [facility] Comment on above: Order Comment: Speci men Type: BLOOD SPECIMENOrdering Facility: [facility] Address: [address] [place] [address] Performed By: #### 2 4321-2, 14352-0 ####[facility] LABCL[facility] [id number] [place] [address] [place] Calcium [Mass/Vol] 8.8 mg/dL Normal 8.5-10.2 [facility] Comment on above: Order Comment: Speci men Type: BLOOD SPECIMENOrdering Facility: [facility] Address: [address] [place] [address] Performed By: #### 2 4321-2, ####[facility] LABCLIA [id number] [place] [id number] [place] Chloride [Moles/Vol] 103 mmol/L Normal 98-107 [facility] Comment on above: Order Comment: Speci men Type: BLOOD SPECIMENOrdering Facility: [facility] Address: [address] [place] [address] Performed By: #### 2 4321-2, ####[facility] LABCLIA [id number] [address] [address] [place] CO2 [Moles/Vol] 21 mmol/L Low 22-30 [facility] Comment on above: Order Comment: Speci men Type: BLOOD SPECIMENOrdering Facility: [facility] Address: [address] [place] [address] Performed By: #### 2 432-2, ####[facility]CL[facility] [id number] [facility] [address] [address] [place] Creatinine [Mass/Vol] 0.94 mg/dL Normal 0.73-1.22 [facility] Comment on above: Order Comment: Speci men Type: BLOOD SPECIMENOrdering Facility: [facility] Address: [address] [place] [address] Performed By: #### 2 2, ####[facility] LABIA [id number] [place] [address] [place] Creatinine and Glomerular filtration rate.predicted panel (S/P/Bld) 88 mL/min/1.73m??? Normal >=60 [facility] Comment on above: Order Comment: Speci men Type: BLOOD SPECIMENOrdering Facility: [facility] Address: [address] [place] [address] Result Comment: Elvia mated Glomerular Filtration Rate [...] actual GFR. Performed By: #### 2 4321-2, ####[facility] LABCLIA [id number] [place] [address] [place] Glucose [Mass/Vol] 144 mg/dL High 74-99 [facility] Comment on above: Order Comment: Speci men Type: BLOOD SPECIMENOrdering Facility: [facility] Address: [address] [place] [address] Result Comment: The [place] [employer] (ADA) provides guidance for cutoff [...] Standards of Medical Care in Diabetes 2016, [place] [employer]. Diabetes Care. 2016.39(Suppl 1). Performed By: #### 2 4320-07, ####[facility] LABCLIA [id number] [place] [address] [place] Potassium [Moles/Vol] 4.0 mmol/L Normal 3.7-5.1 [facility] Comment on above: Order Comment: Speci men Type: BLOOD SPECIMENOrdering Facility: [facility] Address: [address] [place] [address] Performed By: #### 2 4320-07, ####[facility] LABCLIA [id number] [place] [address] [place] Sodium [Moles/Vol] 138 mmol/L Normal 136-144 [facility] Comment on above: Order Comment: Rubiai men Type: BLOOD SPECIMENOrdering Facility: [facility] Address: [address] [place] [address] Performed By: #### 2 4320-07, ####[facility] LABCLIA [id number] [place] [id number] [place] Urea nitrogen [Mass/Vol] 15 mg/dL Normal 9-24 [facility] Comment on above: Order Comment: Rubiai men Type: BLOOD SPECIMENOrdering Facility: [facility] Address: [address] [place] [address] Performed By: #### 2 4320-07, ####[facility] LABCLIA [id number] [address] [address] [place] ECG COMPLETEon 06-24-2024 ECG COMPLETE Normal [facility] [id number] 06-24-2024 ECG01 Normal [facility] MEDICAL EMERon 06-24-2024 MEDICAL [place] Normal [facility] Magnesium SerPl-mCncon 06-24 Magnesium [Mass/Vol] 2.1 mg/dL Normal 1.7-2.3 [facility] Comment on above: Order Comment: Speci men Type: BLOOD SPECIMENOrdering Facility: [facility] Address: [address] [place] [address] Performed By: #### 2 4321-2, ####[facility] LABCLIA [id number] [place] [id number] [place] THERAPY NTon 06-24-2024 THERAPY NT Normal [facility] Basic metabolic 2000 panelon 06-23-2024 Anion gap [Moles/Vol] 11 mmol/L Normal 8-15 [facility] Comment on above: Order Comment: Speci men Type: BLOOD SPECIMENOrdering Facility: [facility] Address: [address] [place] [address] Performed By: #### 2 4321-2, ####[facility] LABCLIA [id number] [place] [address] [place] Calcium [Mass/Vol] 9.4 mg/dL Normal 8.5-10.2 [facility] Comment on above: Order Comment: Speci men Type: BLOOD SPECIMENOrdering Facility: [facility] Address: [address] [place] [address] Performed By: #### 2 4321-2, ####[facility] LABCLIA [id number] [place] [id number] [place] Chloride [Moles/Vol] 100 mmol/L Normal 98-107 [facility] Comment on above: Order Comment: Speci men Type: BLOOD SPECIMENOrdering Facility: [facility] Address: [address] [place] [address] Performed By: #### 2 432-2, ####[facility] LABCLIA [id number] [place] [id number] [place] CO2 [Moles/Vol] 22 mmol/L Normal 22-30 [facility] Comment on above: Order Comment: Speci men Type: BLOOD SPECIMENOrdering Facility: [facility] Address: [address] [place] [address] Performed By: #### 2 4322, ####[facility] LABCLIA [id number] [address] [place] Creatinine [Mass/Vol] 0.94 mg/dL Normal 0.73-1.22 [facility] Comment on above: Order Comment: Speci men Type: BLOOD SPECIMENOrdering Facility: [facility] Address: [address] [place] [address] Performed By: #### 2 432-2, ####[facility] LABCLIA [id number] [address] STATES OF [facility] Creatinine and Glomerular filtration rate.predicted panel (S/P/Bld) 88 mL/min/1.73m??? Normal >=60 [facility] Comment on above: Order Comment: Speci men Type: BLOOD SPECIMENOrdering Facility: [facility] Address: [address] [place] [address] Result Comment: Elvia mated Glomerular Filtration Rate [...] actual GFR. Performed By: #### 2 432-2, ####[facility] LABCLIA [id number] [place] [id number] [place] Glucose [Mass/Vol] 190 mg/dL High 74-99 [facility] Comment on above: Order Comment: Speci men Type: BLOOD SPECIMENOrdering Facility: [facility] Address: [address] [place] [address] Result Comment: The [place] Diabetes [employer] (ADA) provides guidance for cutoff [...] Standards of Medical Care in Diabetes 2016, [place] [employer]. Diabetes Care. 2016.39(Suppl 1). Performed By: #### 2 4320-07, ####[facility] LABCLIA [id number] [place] [address] [place] Potassium [Moles/Vol] 4.3 mmol/L Normal 3.7-5.1 [facility] Comment on above: Order Comment: Speci men Type: BLOOD SPECIMENOrdering Facility: [facility] Address: [address] [place] [address] Performed By: #### 2 4320-07, ####[facility] LABCLIA [id number] [place] [address] [place] Sodium [Moles/Vol] 133 mmol/L Low 136-144 [facility] Comment on above: Order Comment: Speci men Type: BLOOD SPECIMENOrdering Facility: [facility] Address: [address] [place] [address] Performed By: #### 2 4320-07, ####[facility] LABCLIA [id number] [place] [address] [place] Urea nitrogen [Mass/Vol] 14 mg/dL Normal 9-24 [facility] Comment on above: Order Comment: Speci men Type: BLOOD SPECIMENOrdering Facility: [facility] Address: [address] [place] [address] Performed By: #### 2 4321-2, 68659-9 ####[facility] LABIA [id number] [place] [address] [place] CASE MANAGEMon 06-23-2024 CASE MANAGEM Normal [facility] CBC panel Auto (Bld)on 06-23 Erythrocyte distribution width (RBC) [Ratio] 14.9 % Normal 11.5-15.0 [facility] Comment on above: Order Comment: Speci men Type: BLOOD SPECIMENOrdering Facility: [facility] Address: [address] [place] [address] Performed By: #### 5 8410-2 ####[facility] LABIA [id number] [place] [address] [place] Hematocrit (Bld) [Volume fraction] 38.6 % Low 39.0-51.0 [facility] Comment on above: Order Comment: Speci men Type: BLOOD SPECIMENOrdering Facility: [facility] Address: [address] [place] [address] Performed By: #### 5 8410-2 ####[facility] LABIA [id number] [place] [id number] [place] Hemoglobin (Bld) [Mass/Vol] 12.4 g/dL Low 13.0-17.0 [facility] Comment on above: Order Comment: Speci men Type: BLOOD SPECIMENOrdering Facility: [facility] Address: [address] [place] [address] Performed By: #### 5 8410-2 ####[facility] LABIA [id number] [place] [address] [place] MCH (RBC) [Entitic mass] 31.6 pg Normal 26.0-34.0 [facility] Comment on above: Order Comment: Speci men Type: BLOOD SPECIMENOrdering Facility: [facility] Address: [address] [place] [address] Performed By: #### 5 8410-2 ####[facility] LABCLIA [id number] [place] [address] [place] MCHC (RBC) [Mass/Vol] 32.1 g/dL Normal 30.5-36.0 [facility] Comment on above: Order Comment: Speci men Type: BLOOD SPECIMENOrdering Facility: [facility] Address: [address] [place] [address] Performed By: #### 5 8410-2 ####[facility] LABCLIA [id number] [place] [address] [place] MCV (RBC) [Entitic vol] 98.5 fL Normal 80.0-100.0 [facility] Comment on above: Order Comment: Speci men Type: BLOOD SPECIMENOrdering Facility: [facility] Address: [address] [place] [address] Performed By: #### 5 8410-2 ####[facility] LABIA [id number] [place] [address] [place] Nucleated RBC (Bld) [#/Vol] 10*3/uL Normal <0.01 [facility] Comment on above: Order Comment: Speci men Type: BLOOD SPECIMENOrdering Facility: [facility] Address: [address] [place] [address] Performed By: #### 5 8410-2 ####[facility] LABCLIA [id number] [place] [address] [place] Platelet mean volume (Bld) [Entitic vol] 10.0 fL Normal 9.0-12.7 [facility] Comment on above: Order Comment: Speci men Type: BLOOD SPECIMENOrdering Facility: [facility] Address: [address] [place] [address] Performed By: #### 5 8410-2 ####[facility] LABCLIA [id number] [place] [address] [place] Platelets (Bld) [#/Vol] 179 10*3/uL Normal 150-400 [facility] Comment on above: Order Comment: Speci men Type: BLOOD SPECIMENOrdering Facility: [facility] Address: [address] [place] [address] Performed By: #### 5 8410-2 ####[facility] LABIA [id number] [place] [address] [place] RBC (Bld) [#/Vol] 3.92 10*6/uL Low 4.20-6.00 [facility] Comment on above: Order Comment: Speci men Type: BLOOD SPECIMENOrdering Facility: [facility] Address: [address] [place] [address] Performed By: #### 5 8410-2 ####[facility] LABIA [id number] [place] [address] [place] WBC (Bld) [#/Vol] 9.33 10*3/uL Normal 3.70-11.00 [facility] Comment on above: Order Comment: Speci men Type: BLOOD SPECIMENOrdering Facility: [facility] Address: [address] [place] [address] Performed By: #### 5 8410-2 ####[facility] LABIA [id number] [place] [address] [place] CONSULT PROGon 06-23-2024 CONSULT PROG Normal [facility] CONSULT PROG Normal [facility] ECG COMPLETEon 06-23-2024 ECG COMPLETE Normal [facility] Magnesium SerPl-mCncon 06-23 Magnesium [Mass/Vol] 1.8 mg/dL Normal 1.7-2.3 [facility] Comment on above: Order Comment: Speci men Type: BLOOD SPECIMENOrdering Facility: [facility] Address: [address] [place] [address] Performed By: #### 2 4321-2, 19695-9 ####[facility] LABCLIA [id number] [place] [address] [place] THERAPY NTon 06-23-2024 THERAPY NT Normal [facility] THERAPY NT Normal [facility] BRIEF OP NOTon 06-22-2024 BRIEF OP NOT Normal [facility] CASE MANAGEMon 06-22-2024 CASE MANAGEM Normal [facility] CBC panel Auto (Bld)on 06-22 Erythrocyte distribution width (RBC) [Ratio] 15.1 % High 11.5-15.0 [facility] Comment on above: Order Comment: Speci men Type: BLOOD SPECIMENOrdering Facility: [facility] Address: [address] [place] [address] Performed By: #### 5 8410-2 ####[facility] LABCLIA [id number] [place] [address] [place] Hematocrit (Bld) [Volume fraction] 40.0 % Normal 39.0-51.0 [facility] Comment on above: Order Comment: Speci men Type: BLOOD SPECIMENOrdering Facility: [facility] Address: [address] [place] [address] Performed By: #### 5 8410-2 ####[facility] LABCLIA [id number] [place] [id number] [place] Hemoglobin (Bld) [Mass/Vol] 12.7 g/dL Low 13.0-17.0 [facility] Comment on above: Order Comment: Speci men Type: BLOOD SPECIMENOrdering Facility: [facility] Address: [address] [place] [address] Performed By: #### 5 8410-2 ####[facility] LABCLIA [id number] [place] [address] [place] MCH (RBC) [Entitic mass] 31.3 pg Normal 26.0-34.0 [facility] Comment on above: Order Comment: Speci men Type: BLOOD SPECIMENOrdering Facility: [facility] Address: [address] [place] [address] Performed By: #### 5 8410-2 ####[facility] [id number] [place] [address] [place] MCHC (RBC) [Mass/Vol] 31.8 g/dL Normal 30.5-36.0 [facility] Comment on above: Order Comment: Speci men Type: BLOOD SPECIMENOrdering Facility: [facility] Address: [address] [place] [address] Performed By: #### 5 8410-2 ####[facility] [id number] [place] [address] [place] MCV (RBC) [Entitic vol] 98.5 fL Normal 80.0-100.0 [facility] Comment on above: Order Comment: Speci men Type: BLOOD SPECIMENOrdering Facility: [facility] Address: [address] [place] [address] Performed By: #### 5 8410-2 ####[facility] [id number] [place] [address] [place] Nucleated RBC (Bld) [#/Vol] 10*3/uL Normal <0.01 [facility] Comment on above: Order Comment: Speci men Type: BLOOD SPECIMENOrdering Facility: [facility] Address: [address] [place] [address] Performed By: #### 5 8410-2 ####[facility] [id number] [place] [address] [place] Platelet mean volume (Bld) [Entitic vol] 9.9 fL Normal 9.0-12.7 [facility] Comment on above: Order Comment: Speci men Type: BLOOD SPECIMENOrdering Facility: [facility] Address: [address] [place] [address] Performed By: #### 5 8410-2 ####[facility] LABCLIA [id number] [place] [address] [place] Platelets (Bld) [#/Vol] 168 10*3/uL Normal 150-400 [facility] Comment on above: Order Comment: Speci men Type: BLOOD SPECIMENOrdering Facility: [facility] Address: [address] [place] [address] Performed By: #### 5 8410-2 ####[facility] LABCLIA [id number] [place] [address] [place] RBC (Bld) [#/Vol] 4.06 10*6/uL Low 4.20-6.00 [facility] Comment on above: Order Comment: Speci men Type: BLOOD SPECIMENOrdering Facility: [facility] Address: [address] [place] [address] Performed By: #### 5 8410-2 ####[facility] LABCLIA [id number] [place] [address] [place] WBC (Bld) [#/Vol] 9.64 10*3/uL Normal 3.70-11.00 [facility] Comment on above: Order Comment: Speci men Type: BLOOD SPECIMENOrdering Facility: [facility] Address: [address] [place] [address] Performed By: #### 5 8410-2 ####[facility] LABIA [id number] [place] [address] [place] CONSULT PROGon 06-22-2024 CONSULT PROG Normal [facility] Comprehensive metabolic 2000 panelon 06-22-2024 Albumin [Mass/Vol] 3.8 g/dL Low 3.9-4.9 [facility] Comment on above: Order Comment: Speci men Type: BLOOD SPECIMENOrdering Facility: [facility] Address: [address] [place] [address] Performed By: #### 1 9123-9, 30624-6 ####[facility] LABCL[facility] [id number] [place] [address] [place] ALP [Catalytic activity/Vol] 84 U/L Normal 38-113 [facility] Comment on above: Order Comment: Speci men Type: BLOOD SPECIMENOrdering Facility: [facility] Address: [address] [place] [address] Performed By: #### 1 9123-9, 40125-4 ####[facility] LABCL[facility] [id number] [place] [address] [place] ALT [Catalytic activity/Vol] 81 U/L High 10-54 [facility] Comment on above: Order Comment: Speci men Type: BLOOD SPECIMENOrdering Facility: [facility] Address: [address] [place] [address] Performed By: #### 1 9123-9, 90849-0 ####[facility] LABCL[facility] [id number] [place] [address] [place] Anion gap [Moles/Vol] 11 mmol/L Normal 8-15 [facility] Comment on above: Order Comment: Speci men Type: BLOOD SPECIMENOrdering Facility: [facility] Address: [address] [place] [address] Performed By: #### 1 9123-9, 83932-5 ####[facility] LABCL[facility] [id number] [place] [address] [place] AST [Catalytic activity/Vol] 37 U/L Normal 14-40 [facility] Comment on above: Order Comment: Speci men Type: BLOOD SPECIMENOrdering Facility: [facility] Address: [address] [place] [address] Result Comment: Resu lts may be falsely increased due to interference from hemolysis. Suggest reorder as clinically indicated. Performed By: #### 1 9123-9, 91425-4 ####[facility] LABCLIA [id number] [place] [address] [place] Bilirubin [Mass/Vol] 0.5 mg/dL Normal 0.2-1.3 [facility] Comment on above: Order Comment: Speci men Type: BLOOD SPECIMENOrdering Facility: [facility] Address: [address] [place] [address] Performed By: #### 1 9123-9, ####[facility] LABCL[facility] [id number] [place] [address] [place] Calcium [Mass/Vol] 8.6 mg/dL Normal 8.5-10.2 [facility] Comment on above: Order Comment: Speci men Type: BLOOD SPECIMENOrdering Facility: [facility] Address: [address] [place] [address] Performed By: #### 1 23-9, ####[facility] LABCL[facility] [id number] [place] [address] [place] Chloride [Moles/Vol] 104 mmol/L Normal 98-107 [facility] Comment on above: Order Comment: Speci men Type: BLOOD SPECIMENOrdering Facility: [facility] Address: [address] [place] [address] Performed By: #### 1 23-9, ####[facility] LABCL[facility] [id number] [place] [address] [place] CO2 [Moles/Vol] 20 mmol/L Low 22-30 [facility] Comment on above: Order Comment: Speci men Type: BLOOD SPECIMENOrdering Facility: [facility] Address: [address] [place] [address] Performed By: #### 1 9123-9, ####[facility] LABCL[facility] [id number] [place] [address] [place] Creatinine [Mass/Vol] 0.77 mg/dL Normal 0.73-1.22 [facility] Comment on above: Order Comment: Wes guerin Type: BLOOD SPECIMENOrdering Facility: [facility] Address: [address] [place] [address] Performed By: #### 1 9123-9, ####[facility] LABIA [id number] [place] [address] [place] Creatinine and Glomerular filtration rate.predicted panel (S/P/Bld) 97 mL/min/1.73m??? Normal >=60 [facility] Comment on above: Order Comment: Wes guerin Type: BLOOD SPECIMENOrdering Facility: [facility] Address: [address] [place] [address] Result Comment: Elvia mated Glomerular Filtration Rate [...] actual GFR. Performed By: #### 1 9123-9, ####[facility] LABIA [id number] [place] [address] [place] Glucose [Mass/Vol] 148 mg/dL High 74-99 [facility] [facility] Comment on above: Order Comment: Wes guerin Type: BLOOD SPECIMENOrdering Facility: [facility] Address: [address] [place] [address] Result Comment: The [place] [employer] (ADA) provides guidance for cutoff [...] Standards of Medical Care in Diabetes 2016, [place] [employer]. Diabetes Care. 2016.39(Suppl 1). Performed By: #### 1 9123-9, ####[facility] LABCLIA [id number] [place] [address] [place] Potassium [Moles/Vol] 4.6 mmol/L Normal 3.7-5.1 [facility] Comment on above: Order Comment: Speci men Type: BLOOD SPECIMENOrdering Facility: [facility] Address: [address] [place] [address] Performed By: #### 1 9123-9, ####[facility] LABCLIA [id number] [place] [address] [place] Protein [Mass/Vol] 6.3 g/dL Normal 6.3-8.0 [facility] Comment on above: Order Comment: Speci men Type: BLOOD SPECIMENOrdering Facility: [facility] Address: [address] [place] [address] Performed By: #### 1 239, ####[facility] LABCLIA [id number] [place] [address] [place] Sodium [Moles/Vol] 135 mmol/L Low 136-144 [facility] Comment on above: Order Comment: Speci men Type: BLOOD SPECIMENOrdering Facility: [facility] Address: [address] [place] [address] Performed By: #### 1 239, ####[facility] LABCLIA [id number] [place] [id number] [place] Urea nitrogen [Mass/Vol] 15 mg/dL Normal 9-24 [facility] Comment on above: Order Comment: Speci men Type: BLOOD SPECIMENOrdering Facility: [facility] Address: [address] [place] [address] Performed By: #### 1 9123-9, 90145-2 ####[facility] LABCLIA [id number] [place] [address] [place] ECG COMPLETEon 06-22-2024 ECG COMPLETE Normal [facility] Magnesium SerPl-mCncon 06-22 Magnesium [Mass/Vol] 1.8 mg/dL Normal 1.7-2.3 [facility] Comment on above: Order Comment: Wes guerin Type: BLOOD SPECIMENOrdering Facility: [facility] Address: [address] [place] [address] Performed By: #### 1 9123-9, 82542-1 ####[facility] LABCLIA [id number] [place] [address] [place] PT EDon 06-22-2024 PT ED Normal [facility] PT panel Coag (PPP)on 2023 INR Coag (PPP) [Relative time] 1.1 {INR} Normal 0.9-1.3 [facility] Comment on above: Order Comment: Wes guerin Type: BLOOD SPECIMENOrdering Facility: [facility] Address: [address] [place] [address] Result Comment: Mere min K Antagonist (VKA) Therapeutic Range: INR 2 to 3 (Target INR of 2.5)Note: For patients treated with VKA drugs, such as warfarin, the [place] [employer] 2012 Guideline recommends [...] al. Chest 2012, 141:7S-47SJimmie RA, et al. JACC 2017, 70: 252-289 Performed By: #### 1 4979-9, 16118-3 ####[facility] LABCLIA [id number] [place] [address] [place] PT Coag (PPP) [Time] 12.2 s Normal 9.7-13.0 [facility] Comment on above: Order Comment: Speci men Type: BLOOD SPECIMENOrdering Facility: [facility] Address: [address] [place] [address] Performed By: #### 1 4979-9, 07526-7 ####[facility] LABCLIA [id number] [address] [place] TYPE + SCREENon 06-22-2024 ABO A Normal [facility] Comment on above: Order Comment: Speci men Type: BLOOD SPECIMENOrdering Facility: [facility] Address: [address] [place] [address] Performed By: #### T SCR ####[facility] BLOOD BANKCLIA [id number] [place] [address] [place] Rh Nom (Bld) Positive Normal [facility] Comment on above: Order Comment: Speci men Type: BLOOD SPECIMENOrdering Facility: [facility] Address: [address] [place] [address] Performed By: #### T SCR ####[facility] BLOOD BANKCLIA [id number] [place] [address] [place] TYPE AND SCREEN EXPIRATION 06/25/2024 23:59 Normal [facility] Comment on above: Order Comment: Speci men Type: BLOOD SPECIMENOrdering Facility: [facility] Address: [facility] [place] [address] Performed By: #### T SCR ####[facility] BLOOD BANKCLIA [id number] [place] [address] [place] XR CHEST 2V FRONTAL/LATon XR CHEST 2V FRONTAL/LAT Normal [facility] aPTT PPPon 06-22-2024 aPTT Coag (PPP) [Time] 31.0 s Normal 23.0-32.4 [facility] Comment on above: Order Comment: Speci men Type: BLOOD SPECIMENOrdering Facility: [facility] Address: [address] [place] [address] Performed By: #### 1 4979-9, 18661-1 ####[facility] LABIA [id number] [place] [address] [place] Basic metabolic 2000 panelon 06-21-2024 Anion gap [Moles/Vol] 11 mmol/L Normal 8-15 [facility] Comment on above: Order Comment: Speci men Type: BLOOD SPECIMENOrdering Facility: [facility] Address: [address] [place] [address] Performed By: #### 2 4321-2 ####[facility] LABIA [id number] [place] [address] [place] Calcium [Mass/Vol] 9.0 mg/dL Normal 8.5-10.2 [facility] Comment on above: Order Comment: Speci men Type: BLOOD SPECIMENOrdering Facility: [facility] Address: [address] [place] [address] Performed By: #### 2 4321-2 ####[facility] LABCLIA [id number] [place] [address] [place] Chloride [Moles/Vol] 104 mmol/L Normal 98-107 [facility] Comment on above: Order Comment: Speci men Type: BLOOD SPECIMENOrdering Facility: [facility] Address: [address] [place] [address] Performed By: #### 2 4321-2 ####[facility] LABIA [id number] [place] [id number] [place] CO2 [Moles/Vol] 22 mmol/L Normal 22-30 [facility] Comment on above: Order Comment: Speci men Type: BLOOD SPECIMENOrdering Facility: [facility] Address: [address] [place] [address] Performed By: #### 2 4321-2 ####[facility] LABCLIA [id number] [place] [address] [place] Creatinine [Mass/Vol] 0.82 mg/dL Normal 0.73-1.22 [facility] Comment on above: Order Comment: Speci men Type: BLOOD SPECIMENOrdering Facility: [facility] Address: [address] [place] [address] Performed By: #### 2 4321-2 ####[facility] LABCLIA [id number] [place] [address] [place] Creatinine and Glomerular filtration rate.predicted panel (S/P/Bld) 95 mL/min/1.73m??? Normal >=60 [facility] Comment on above: Order Comment: Speci men Type: BLOOD SPECIMENOrdering Facility: [facility] Address: [address] [place] [address] Result Comment: Elvia mated Glomerular Filtration Rate [...] actual GFR. Performed By: #### 2 4321-2 ####[facility] LABCLIA [id number] [place] [address] [place] Glucose [Mass/Vol] 161 mg/dL High 74-99 [facility] Comment on above: Order Comment: Speci men Type: BLOOD SPECIMENOrdering Facility: [facility] Address: [address], [place] [address] Result Comment: The [place] Diabetes [employer] (ADA) provides guidance for cutoff [...] Standards of Medical Care in Diabetes 2016, [place] [employer]. Diabetes Care. 2016.39(Suppl 1). Performed By: #### 2 4321-2 ####[facility] LABCLIA [id number] [place] [address] [place] Potassium [Moles/Vol] 4.2 mmol/L Normal 3.7-5.1 [facility] Comment on above: Order Comment: Speci men Type: BLOOD SPECIMENOrdering Facility: [facility] Address: [address] [place] [address] Performed By: #### 2 4321-2 ####[facility] LABIA [id number] [place] [address] [place] Sodium [Moles/Vol] 137 mmol/L Normal 136-144 [facility] Comment on above: Order Comment: Speci men Type: BLOOD SPECIMENOrdering Facility: [facility] Address: [address] [place] [address] Performed By: #### 2 4321-2 ####[facility] LABIA [id number] [place] [address] [place] Urea nitrogen [Mass/Vol] 15 mg/dL Normal 9-24 [facility] Comment on above: Order Comment: Speci men Type: BLOOD SPECIMENOrdering Facility: [facility] Address: [address] [place] [address] Performed By: #### 2 4321-2 ####[facility] LABCLIA [id number] [place] [address] [place] CBC panel Auto (Bld)on 06-21 Erythrocyte distribution width (RBC) [Ratio] 15.3 % High 11.5-15.0 [facility] Comment on above: Order Comment: Speci men Type: BLOOD SPECIMENOrdering Facility: [facility] Address: [address] [place] [address] Performed By: #### 5 8410-2 ####[facility] [id number] [place] [address] [place] Hematocrit (Bld) [Volume fraction] 39.0 % Normal 39.0-51.0 [facility] Comment on above: Order Comment: Speci men Type: BLOOD SPECIMENOrdering Facility: [facility] Address: [address] [place] [address] Performed By: #### 5 8410-2 ####[facility] [id number] [place] [address] [place] Hemoglobin (Bld) [Mass/Vol] 12.8 g/dL Low 13.0-17.0 [facility] Comment on above: Order Comment: Speci men Type: BLOOD SPECIMENOrdering Facility: [facility] Address: [address] [place] [address] Performed By: #### 5 8410-2 ####[facility] [id number] [place] [address] [place] MCH (RBC) [Entitic mass] 31.2 pg Normal 26.0-34.0 [facility] Comment on above: Order Comment: Speci men Type: BLOOD SPECIMENOrdering Facility: [facility] Address: [address] [place] [address] Performed By: #### 5 8410-2 ####[facility] [id number] [place] [address] [place] MCHC (RBC) [Mass/Vol] 32.8 g/dL Normal 30.5-36.0 [facility] Comment on above: Order Comment: Speci men Type: BLOOD SPECIMENOrdering Facility: [facility] Address: [address] [place] [address] Performed By: #### 5 8410-2 ####[facility] LABIA [id number] [place] [address] [place] MCV (RBC) [Entitic vol] 95.1 fL Normal 80.0-100.0 [facility] Comment on above: Order Comment: Speci men Type: BLOOD SPECIMENOrdering Facility: [facility] Address: [address] [place] [address] Performed By: #### 5 8410-2 ####[facility] LABIA [id number] [place] [address] [place] Nucleated RBC (Bld) [#/Vol] 10*3/uL Normal <0.01 [facility] Comment on above: Order Comment: Speci men Type: BLOOD SPECIMENOrdering Facility: [facility] Address: [address] [place] [address] Performed By: #### 5 8410-2 ####[facility] LABIA [id number] [place] [address] [place] Platelet mean volume (Bld) [Entitic vol] 9.7 fL Normal 9.0-12.7 [facility] Comment on above: Order Comment: Speci men Type: BLOOD SPECIMENOrdering Facility: [facility] Address: [address] [place] [address] Performed By: #### 5 8410-2 ####[facility] LABIA [id number] [place] [address] [place] Platelets (Bld) [#/Vol] 142 10*3/uL Low 150-400 [facility] Comment on above: Order Comment: Speci men Type: BLOOD SPECIMENOrdering Facility: [facility] Address: [address] [place] [address] Performed By: #### 5 8410-2 ####[facility] LABCLIA [id number] [place] [address] [place] RBC (Bld) [#/Vol] 4.10 10*6/uL Low 4.20-6.00 [facility] Comment on above: Order Comment: Speci men Type: BLOOD SPECIMENOrdering Facility: [facility] Address: [address] [place] [address] Performed By: #### 5 8410-2 ####[facility] LABIA [id number] [place] [address] [place] WBC (Bld) [#/Vol] 6.70 10*3/uL Normal 3.70-11.00 [facility] Comment on above: Order Comment: Speci men Type: BLOOD SPECIMENOrdering Facility: [facility] Address: [address] [place] [address] Performed By: #### 5 8410-2 ####[facility] LABIA [id number] [place] [address] [place] ECG COMPLETEon 06-21-2024 ECG COMPLETE Normal [facility] XR CHEST 1V FRONTAL PORTon 1 08-22-2023 XR CHEST 1V FRONTAL PORT Normal [facility] CBC panel Auto (Bld)on 06-20 Erythrocyte distribution width (RBC) [Ratio] 15.2 % High 11.5-15.0 [facility] Comment on above: Order Comment: Speci men Type: BLOOD SPECIMENOrdering Facility: [facility] Address: [address] [place] [address] Performed By: #### 5 8410-2 ####[facility] LABCLIA [id number] [place] [address] [place] Hematocrit (Bld) [Volume fraction] 39.0 % Normal 39.0-51.0 [facility] Comment on above: Order Comment: Speci men Type: BLOOD SPECIMENOrdering Facility: [facility] Address: [address] [place] [address] Performed By: #### 5 8410-2 ####[facility] LABIA [id number] [place] [address] [place] Hemoglobin (Bld) [Mass/Vol] 12.7 g/dL Low 13.0-17.0 [facility] Comment on above: Order Comment: Speci men Type: BLOOD SPECIMENOrdering Facility: [facility] Address: [address] [place] [address] Performed By: #### 5 8410-2 ####[facility] [id number] [place] [address] [place] MCH (RBC) [Entitic mass] 31.5 pg Normal 26.0-34.0 [facility] Comment on above: Order Comment: Speci men Type: BLOOD SPECIMENOrdering Facility: [facility] Address: [address] [place] [address] Performed By: #### 5 8410-2 ####[facility] [id number] [place] [address] [place] MCHC (RBC) [Mass/Vol] 32.6 g/dL Normal 30.5-36.0 [facility] Comment on above: Order Comment: Speci men Type: BLOOD SPECIMENOrdering Facility: [facility] Address: [address] [place] [address] Performed By: #### 5 8410-2 ####[facility] [id number] [place] [address] [place] MCV (RBC) [Entitic vol] 96.8 fL Normal 80.0-100.0 [facility] Comment on above: Order Comment: Speci men Type: BLOOD SPECIMENOrdering Facility: [facility] Address: [address] [place] [address] Performed By: #### 5 8410-2 ####[facility] LABCLIA [id number] [place] [address] [place] Nucleated RBC (Bld) [#/Vol] 10*3/uL Normal <0.01 [facility] Comment on above: Order Comment: Speci men Type: BLOOD SPECIMENOrdering Facility: [facility] Address: [address] [place] [address] Performed By: #### 5 8410-2 ####[facility] LABIA [id number] [place] [address] [place] Platelet mean volume (Bld) [Entitic vol] 9.7 fL Normal 9.0-12.7 [facility] Comment on above: Order Comment: Speci men Type: BLOOD SPECIMENOrdering Facility: [facility] Address: [address] [place] [address] Performed By: #### 5 8410-2 ####[facility] LABIA [id number] [place] [address] [place] Platelets (Bld) [#/Vol] 144 10*3/uL Low 150-400 [facility] Comment on above: Order Comment: Speci men Type: BLOOD SPECIMENOrdering Facility: [facility] Address: [address] [place] [address] Performed By: #### 5 8410-2 ####[facility] LABIA [id number] [place] [address] [place] RBC (Bld) [#/Vol] 4.03 10*6/uL Low 4.20-6.00 [facility] Comment on above: Order Comment: Speci men Type: BLOOD SPECIMENOrdering Facility: [facility] Address: [address] [place] [address] Performed By: #### 5 8410-2 ####[facility] LABIA [id number] [place] [address] [place] WBC (Bld) [#/Vol] 6.75 10*3/uL Normal 3.70-11.00 [facility] Comment on above: Order Comment: Speci men Type: BLOOD SPECIMENOrdering Facility: [facility] Address: [address] [place] [address] Performed By: #### 5 8410-2 ####[facility] LABCLIA [id number] [place] [address] [place] CONSULT PROGon 06-20-2024 CONSULT PROG Normal [facility] CONSULT PROG Normal [facility] ECG COMPLETEon 06-20-2024 ECG COMPLETE Normal [facility] NUTRITIONon 06-20-2024 NUTRITION Normal [facility] PT EDon 06-20-2024 PT ED Normal [facility] PTT, ANTICOAGULANT THERAPYon 06-20-2024 aPTT Coag (PPP) [Time] 53.1 s High 23.0-32.4 [facility] Comment on above: Order Comment: Speci men Type: BLOOD SPECIMENOrdering Facility: [facility] Address: [address] [place] [address] Performed By: #### P TTAC ####[facility] LABCLIA [id number] [place] [address] [place] Vancomycin Lima SerPl-mCncon 06-20-2024 Vancomycin random [Mass/Vol] 19.3 ug/mL Normal 10.0-20.0 [facility] Comment on above: Order Comment: Speci men Type: BLOOD SPECIMENOrdering Facility: [facility] Address: [address] [place] [address] Result Comment: Refe rence ranges and high/low indicator flags are provided as general guidelines only. The treating physician must determine appropriate target levels/dosing based on the specific clinical situation. Performed By: #### 4 091-5 ####[facility] LABCLIA [id number] [place] [address] [place] ANES POSTPROC EVALon 024 ANES POSTPROC EVAL Normal [facility] ANES PRE-OPon 06-19-2024 ANES PRE-OP Normal [facility] ARTERIAL BLOOD GASES WITH IO NIZED MAGNESIUMon 06-19-2024 Base deficit (BldA) [Moles/Vol] -3 mmol/L Low -2-0 [facility] Comment on above: Order Comment: Speci men Type: ARTERIAL BLOOD SPECIMENOrdering Facility: [facility] Address: [address] [place] [address] Performed By: #### A LLMG ####[facility] [id number] [place] [address] [place] Calcium.ionized (Bld) [Mass/Vol] 1.19 mmol/L Normal 1.08-1.30 [facility] Comment on above: Order Comment: Speci men Type: ARTERIAL BLOOD SPECIMENOrdering Facility: [facility] Address: [address] [place] [address] Performed By: #### A LLMG ####[facility] [id number] [place] [address] [place] Calcium.ionized adjusted to pH 7.4 (BldA) [Moles/Vol] 1.18 mmol/L Normal 1.08-1.30 [facility] Comment on above: Order Comment: Speci men Type: ARTERIAL BLOOD SPECIMENOrdering Facility: [facility] Address: [address] [place] [address] Performed By: #### A LLMG ####[facility] [id number] [place] [address] [place] Carboxyhemoglobin (BldA) [Mass fraction] <0.0 Low 0.0-2.0 [facility] Comment on above: Order Comment: Speci men Type: ARTERIAL BLOOD SPECIMENOrdering Facility: [facility] Address: [address] [place] [address] Result Comment: Carb oxyhemoglobin Reference Range for Smokers: 2.0-8.0% Performed By: #### A LLMG ####[facility] LABCLIA [id number] [place] [address] [place] CO2 (Bld) [Partial pressure] 37 mm Hg Normal 36-46 [facility] Comment on above: Order Comment: Speci men Type: ARTERIAL BLOOD SPECIMENOrdering Facility: [facility] Address: [address] [place] [address] Performed By: #### A LLMG ####[facility] LABCLIA [id number] [place] [address] [place] CO2 adjusted to patient's actual temperature (Bld) [Partial pressure] 37 mmHg Normal 36-46 [facility] Comment on above: Order Comment: Speci men Type: ARTERIAL BLOOD SPECIMENOrdering Facility: [facility] Address: [address] [place] [address] Performed By: #### A LLMG ####[facility] LABCLIA [id number] [place] [address] [place] Glucose [Mass/Vol] 216 mg/dL High 60-105 [facility] Comment on above: Order Comment: Speci men Type: ARTERIAL BLOOD SPECIMENOrdering Facility: [facility] Address: [address] [place] [address] Performed By: #### A LLMG ####[facility] LABCLIA [id number] [place] [address] [place] HCO3 (Bld) [Moles/Vol] 21 mmol/L Low 22-26 [facility] Comment on above: Order Comment: Speci men Type: ARTERIAL BLOOD SPECIMENOrdering Facility: [facility] Address: [address] [place] [address] Performed By: #### A LLMG ####[facility] LABCLIA [id number] [place] [id number] [place] Hematocrit (Bld) [Volume fraction] 40.5 % Normal 39.0-51.0 [facility] Comment on above: Order Comment: Speci men Type: ARTERIAL BLOOD SPECIMENOrdering Facility: [facility] Address: [address] [place] [address] Performed By: #### A LLMG ####[facility] LABIA [id number] [place] [address] [place] Hemoglobin (Bld) [Mass/Vol] 13.2 g/dL Normal 13.0-17.0 [facility] Comment on above: Order Comment: Speci men Type: ARTERIAL BLOOD SPECIMENOrdering Facility: [facility] Address: [address] [place] [address] Performed By: #### A LLMG ####[facility] LABIA [id number] [place] [address] [place] Lactate [Moles/Vol] 0.8 mmol/L Normal 0.5-2.2 [facility] Comment on above: Order Comment: Speci men Type: ARTERIAL BLOOD SPECIMENOrdering Facility: [facility] Address: [address] [place] [address] Performed By: #### A LLMG ####[facility] LABIA [id number] [place] [address] [place] Magnesium [Moles/Vol] 0.47 mmol/L Normal 0.45-0.60 [facility] Comment on above: Order Comment: Speci men Type: ARTERIAL BLOOD SPECIMENOrdering Facility: [facility] Address: [address] [place] [address] Performed By: #### A LLMG ####[facility] [id number] [place] [address] [place] Methemoglobin (Bld) [Mass fraction] 0.4 % Normal 0.0-1.5 [facility] Comment on above: Order Comment: Speci men Type: ARTERIAL BLOOD SPECIMENOrdering Facility: [facility] Address: [address] [place] [address] Performed By: #### A LLMG ####[facility] LAB[facility] [id number] [address] [address] [place] Oxygen (Bld) [Partial pressure] 209 mm Hg High 85-95 [facility] Comment on above: Order Comment: Speci men Type: ARTERIAL BLOOD SPECIMENOrdering Facility: [facility] Address: [address] [place] [address] Performed By: #### A LLMG ####[facility] LABCLIA [id number] [address] [address] [place] Oxygen adjusted to patient's actual temperature (Bld) [Partial pressure] 209 mmHg High 85-95 [facility] Comment on above: Order Comment: Speci men Type: ARTERIAL BLOOD SPECIMENOrdering Facility: [facility] Address: [address] [place] [address] Performed By: #### A LLMG ####[facility] LABCL[facility] [id number] [place] [id number] [place] Oxyhemoglobin (BldA) [Mass fraction] 97 % Normal 95-98 [facility] Comment on above: Order Comment: Speci men Type: ARTERIAL BLOOD SPECIMENOrdering Facility: [facility] Address: [address] [place], [place] [address] Performed By: #### A LLMG ####[facility] LABCL[facility] [id number] [place] [id number] [place] pH (Bld) 7.38 [pH] Normal 7.35-7.45 [facility] Comment on above: Order Comment: Speci men Type: ARTERIAL BLOOD SPECIMENOrdering Facility: [facility] Address: [address] [place], [place] [address] Performed By: #### A LLMG ####[facility] LABCL[facility] [id number] [place] [id number] [place] pH adjusted to patient's actual temperature (Bld) 7.38 Normal 7.35-7.45 [facility] Comment on above: Order Comment: Speci men Type: ARTERIAL BLOOD SPECIMENOrdering Facility: [facility] Address: [address] [place] [address] Performed By: #### A LLMG ####[facility]CL[facility] [id number] [place] [address] [place] Potassium [Moles/Vol] 4.9 mmol/L Normal 3.5-5.0 [facility] Comment on above: Order Comment: Speci men Type: ARTERIAL BLOOD SPECIMENOrdering Facility: [facility] Address: [address] [place] [address] Performed By: #### A LLMG ####[facility] LABCL[facility] [id number] [place] [address] [place] Sodium [Moles/Vol] 135 mmol/L Low 136-144 [facility] Comment on above: Order Comment: Speci men Type: ARTERIAL BLOOD SPECIMENOrdering Facility: [facility] Address: [address] [place] [address] Performed By: #### A LLMG ####[facility] [id number] [place] [address] [place] Base deficit (BldA) [Moles/Vol] -2 mmol/L Normal -2-0 [facility] Comment on above: Order Comment: Speci men Type: ARTERIAL BLOOD SPECIMENOrdering Facility: [facility] Address: [address] [place] [address] Performed By: #### A LLMG ####[facility]CL[facility] [id number] [place] [address] [place] Calcium.ionized (Bld) [Mass/Vol] 1.25 mmol/L Normal 1.08-1.30 [facility] Comment on above: Order Comment: Speci men Type: ARTERIAL BLOOD SPECIMENOrdering Facility: [facility] Address: [address] [place] [address] Performed By: #### A LLMG ####[facility]CL[facility] [id number] [place] [address] [place] Calcium.ionized adjusted to pH 7.4 (BldA) [Moles/Vol] 1.23 mmol/L Normal 1.08-1.30 [facility] Comment on above: Order Comment: Speci men Type: ARTERIAL BLOOD SPECIMENOrdering Facility: [facility] Address: [address] [place] [address] Performed By: #### A LLMG ####[facility] LABIA [id number] [place] [address] [place] Carboxyhemoglobin (BldA) [Mass fraction] <0.0 Low 0.0-2.0 [facility] Comment on above: Order Comment: Speci men Type: ARTERIAL BLOOD SPECIMENOrdering Facility: [facility] Address: [address] [place] [address] Result Comment: Carb oxyhemoglobin Reference Range for Smokers: 2.0-8.0% Performed By: #### A LLMG ####[facility] LABIA [id number] [place] [address] [place] CO2 (Bld) [Partial pressure] 38 mm Hg Normal 36-46 [facility] Comment on above: Order Comment: Speci men Type: ARTERIAL BLOOD SPECIMENOrdering Facility: [facility] Address: [address] [place] [address] Performed By: #### A LLMG ####[facility] LABCL[facility] [id number] [place] [address] [place] CO2 adjusted to patient's actual temperature (Bld) [Partial pressure] 38 mmHg Normal 36-46 [facility] Comment on above: Order Comment: Speci men Type: ARTERIAL BLOOD SPECIMENOrdering Facility: [facility] Address: [address] [place] [address] Performed By: #### A LLMG ####[facility] LABCL[facility] [id number] [place] [address] [place] Glucose [Mass/Vol] 195 mg/dL High 60-105 [facility] Comment on above: Order Comment: Speci men Type: ARTERIAL BLOOD SPECIMENOrdering Facility: [facility] Address: [address] [place] [address] Performed By: #### A LLMG ####[facility] [id number] [place] [address] [place] HCO3 (Bld) [Moles/Vol] 22 mmol/L Normal 22-26 [facility] Comment on above: Order Comment: Speci men Type: ARTERIAL BLOOD SPECIMENOrdering Facility: [facility] Address: [address] [place] [address] Performed By: #### A LLMG ####[facility] [id number] [place] [address] [place] Hematocrit (Bld) [Volume fraction] 40.2 % Normal 39.0-51.0 [facility] Comment on above: Order Comment: Speci men Type: ARTERIAL BLOOD SPECIMENOrdering Facility: [facility] Address: [address] [place] [address] Performed By: #### A LLMG ####[facility] [id number] [place] [address] [place] Hemoglobin (Bld) [Mass/Vol] 13.1 g/dL Normal 13.0-17.0 [facility] Comment on above: Order Comment: Speci men Type: ARTERIAL BLOOD SPECIMENOrdering Facility: [facility] Address: [address] [place] [address] Performed By: #### A LLMG ####[facility] LABCL[facility] [id number] [place] [address] [place] Lactate [Moles/Vol] 1.5 mmol/L Normal 0.5-2.2 [facility] Comment on above: Order Comment: Speci men Type: ARTERIAL BLOOD SPECIMENOrdering Facility: [facility] Address: [address] [place] [address] Performed By: #### A LLMG ####[facility] LABCL[facility] [id number] [place] [address] [place] Magnesium [Moles/Vol] 0.50 mmol/L Normal 0.45-0.60 [facility] Comment on above: Order Comment: Speci men Type: ARTERIAL BLOOD SPECIMENOrdering Facility: [facility] Address: [address] [place] [address] Performed By: #### A LLMG ####[facility]CL[facility] [id number] [place] [address] [place] Methemoglobin (Bld) [Mass fraction] 0.6 % Normal 0.0-1.5 [facility] Comment on above: Order Comment: Speci men Type: ARTERIAL BLOOD SPECIMENOrdering Facility: [facility] Address: [address] [place] [address] Performed By: #### A LLMG ####[facility] LABCL[facility] [id number] [place] [address] [place] Oxygen (Bld) [Partial pressure] 215 mm Hg High 85-95 [facility] Comment on above: Order Comment: Speci men Type: ARTERIAL BLOOD SPECIMENOrdering Facility: [facility] Address: [address] [place] [address] Performed By: #### A LLMG ####[facility] LABCL[facility] [id number] [place] [address] [place] Oxygen adjusted to patient's actual temperature (Bld) [Partial pressure] 215 mmHg High 85-95 [facility] Comment on above: Order Comment: Speci men Type: ARTERIAL BLOOD SPECIMENOrdering Facility: [facility] Address: [address] [place] [address] Performed By: #### A LLMG ####[facility] LABCLIA [id number] [place] [address] [place] Oxyhemoglobin (BldA) [Mass fraction] 97 % Normal 95-98 [facility] Comment on above: Order Comment: Speci men Type: ARTERIAL BLOOD SPECIMENOrdering Facility: [facility] Address: [address] [place] [address] Performed By: #### A LLMG ####[facility] LABCLIA [id number] [place] [address] [place] pH (Bld) 7.38 [pH] Normal 7.35-7.45 [facility] Comment on above: Order Comment: Speci men Type: ARTERIAL BLOOD SPECIMENOrdering Facility: [facility] Address: [address] [place] [address] Performed By: #### A LLMG ####[facility] LABCL[facility] [id number] [place] [address] [place] pH adjusted to patient's actual temperature (Bld) 7.38 Normal 7.35-7.45 [facility] Comment on above: Order Comment: Speci men Type: ARTERIAL BLOOD SPECIMENOrdering Facility: [facility] Address: [address] [place] [address] Performed By: #### A LLMG ####[facility] LABCLIA [id number] [place] [address] [place] Potassium [Moles/Vol] 4.4 mmol/L Normal 3.5-5.0 [facility] Comment on above: Order Comment: Speci men Type: ARTERIAL BLOOD SPECIMENOrdering Facility: [facility] Address: [address] [place] [address] Performed By: #### A LLMG ####[facility] LABCLIA [id number] [place] [address] [place] Sodium [Moles/Vol] 135 mmol/L Low 136-144 [facility] Comment on above: Order Comment: Speci men Type: ARTERIAL BLOOD SPECIMENOrdering Facility: [facility] Address: [address] [place] [address] Performed By: #### A LLMG ####[facility] LABIA [id number] [place] [address] [place] BRIEF OP NOTon 06-19-2024 BRIEF OP NOT Normal [facility] Bacteria Tiss Culton 024 Bacteria identified Cx Nom (Tiss) Abnormal [facility] Comment on above: Performed By: #### 4 3408-4 ####[facility]CL[facility] [id number] [place] [address] [place] Bacteria Wnd Culton 06-19-20 24 Bacteria identified Cx Nom (Wound) ORGANISM ID: 1 Few Bacillus species, not bacillus anthracis No susceptibility testing done. GRAM STAIN: No organisms seen No Polymorphonuclear Leukocytes Abnormal [facility] Comment on above: Performed By: #### 6 462-6 ####[facility] LABIA [id number] [place] [address] [place] Bacteria identified Cx Nom (Wound) ORGANISM ID: 1 Staphylococcus epidermidis Growth in Enrichment Broth Only Refer to specimen collected on 06/19/2024 at 1152 [[id number]] GRAM STAIN: No organisms seen No Polymorphonuclear Leukocytes Abnormal [facility] Comment on above: Performed By: #### 6 462-6 ####[facility] LABCLIA [id number] [place] [address] [place] Bacteria identified Cx Nom (Wound) Abnormal [facility] Comment on above: Performed By: #### 6 462-6 ####[facility] LABIA [id number] [place] [address] [place] CASE MANAGEMon 06-19-2024 CASE MANAGEM Normal [facility] CBC panel Auto (Bld)on 06-19 Erythrocyte distribution width (RBC) [Ratio] 15.4 % High 11.5-15.0 [facility] Comment on above: Order Comment: Speci men Type: BLOOD SPECIMENOrdering Facility: [facility] Address: [address] [place] [address] Performed By: #### 5 8410-2 ####[facility] LABIA [id number] [place] [address] [place] Hematocrit (Bld) [Volume fraction] 41.3 % Normal 39.0-51.0 [facility] Comment on above: Order Comment: Speci men Type: BLOOD SPECIMENOrdering Facility: [facility] Address: [address] [place] [address] Performed By: #### 5 8410-2 ####[facility] LABIA [id number] [place] [address] [place] Hemoglobin (Bld) [Mass/Vol] 13.3 g/dL Normal 13.0-17.0 [facility] Comment on above: Order Comment: Speci men Type: BLOOD SPECIMENOrdering Facility: [facility] Address: [address] [place] [address] Performed By: #### 5 8410-2 ####[facility] LABIA [id number] [place] [address] [place] MCH (RBC) [Entitic mass] 31.5 pg Normal 26.0-34.0 [facility] Comment on above: Order Comment: Speci men Type: BLOOD SPECIMENOrdering Facility: [facility] Address: [address] [place] [address] Performed By: #### 5 8410-2 ####[facility] LABIA [id number] [place] [address] [place] MCHC (RBC) [Mass/Vol] 32.2 g/dL Normal 30.5-36.0 [facility] Comment on above: Order Comment: Speci men Type: BLOOD SPECIMENOrdering Facility: [facility] Address: [address] [place] [address] Performed By: #### 5 8410-2 ####[facility] LABCL[facility] [id number] [place] [address] [place] MCV (RBC) [Entitic vol] 97.9 fL Normal 80.0-100.0 [facility] Comment on above: Order Comment: Speci men Type: BLOOD SPECIMENOrdering Facility: [facility] Address: [address] [place] [address] Performed By: #### 5 8410-2 ####[facility] LABIA [id number] [place] [address] [place] Nucleated RBC (Bld) [#/Vol] 10*3/uL Normal <0.01 [facility] Comment on above: Order Comment: Speci men Type: BLOOD SPECIMENOrdering Facility: [facility] Address: [address] [place] [address] Performed By: #### 5 8410-2 ####[facility] LABIA [id number] [place] [address] [place] Platelet mean volume (Bld) [Entitic vol] 10.0 fL Normal 9.0-12.7 [facility] Comment on above: Order Comment: Speci men Type: BLOOD SPECIMENOrdering Facility: [facility] Address: [address] [place] [address] Performed By: #### 5 8410-2 ####[facility] LABIA [id number] [place] [address] [place] Platelets (Bld) [#/Vol] 154 10*3/uL Normal 150-400 [facility] Comment on above: Order Comment: Speci men Type: BLOOD SPECIMENOrdering Facility: [facility] Address: [address] [place] [address] Performed By: #### 5 8410-2 ####[facility] LABIA [id number] [place] [address] [place] RBC (Bld) [#/Vol] 4.22 10*6/uL Normal 4.20-6.00 [facility] Comment on above: Order Comment: Speci men Type: BLOOD SPECIMENOrdering Facility: [facility] Address: [address] [place] [address] Performed By: #### 5 8410-2 ####[facility] [id number] [place] [address] [place] WBC (Bld) [#/Vol] 3.76 10*3/uL Normal 3.70-11.00 [facility] Comment on above: Order Comment: Speci men Type: BLOOD SPECIMENOrdering Facility: [facility] Address: [address] [place] [address] Performed By: #### 5 8410-2 ####[facility] [id number] [place] [address] [place] CONSULT PROGon 06-19-2024 CONSULT PROG Normal [facility] CONSULT PROG Normal [facility] CREATININE BLDon 06-19-2024 Creatinine [Mass/Vol] 0.93 mg/dL Normal 0.73-1.22 [facility] Comment on above: Order Comment: Speci men Type: BLOOD SPECIMENOrdering Facility: [facility] Address: [address] [place] [address] Performed By: #### C RET1 ####[facility] [id number] [place] [address] [place] Creatinine and Glomerular filtration rate.predicted panel (S/P/Bld) 89 mL/min/1.73m??? Normal >=60 [facility] Comment on above: Order Comment: Speci men Type: BLOOD SPECIMENOrdering Facility: [facility] Address: [address] [place] [address] Result Comment: Elvia mated Glomerular Filtration Rate [...] actual GFR. Performed By: #### C RET1 ####[facility] LABIA [id number] [place] [address] [place] ECG COMPLETEon 06-19-2024 ECG COMPLETE Normal [facility] [id number] 06-19-2024 ECG01 Normal [facility] INTRAOPERATIVE ECHO PREon INTRAOPERATIVE ECHO PRE Normal [facility] PTT, ANTICOAGULANT THERAPYon 06-19-2024 aPTT Coag (PPP) [Time] 51.0 s High 23.0-32.4 [facility] Comment on above: Order Comment: Speci men Type: BLOOD SPECIMENOrdering Facility: [facility] Address: [address] [place] [address] Performed By: #### P TTAC ####[facility] LABIA [id number] [place] [address] [place] aPTT Coag (PPP) [Time] 29.0 s Normal 23.0-32.4 [facility] Comment on above: Order Comment: Speci men Type: BLOOD SPECIMENOrdering Facility: [facility] Address: [address] [place] [address] Performed By: #### P TTAC ####[facility] [id number] [address] [place] SURGICAL PATHOLOGYon 024 CASE REPORT Normal [facility] Comment on above: Order Comment: Speci men Type: DEVICE SPECIMENOrdering Facility: [facility] Address: [address] [place] [address] Result Comment: Surg ical Pathology Report Case: [id number] Provider: Lui Cooper MD Collected: 06/19/2024 10:51 AMOrdering Location: Admitting Received: 06/20/2024 10:09 AMPathologist: Christiano Proctor MD, PhDSpecimens: A) - Hardware/Device/Foreign Body, RA Lead B) - Hardware/Device/Foreign Body, LV Lead C) - Hardware/Device/Foreign Body, old RV Lead D) - Hardware/Device/Foreign Body, old Device Performed By: #### S ####[facility] LABCLIA [id number] [address] CLINICAL HISTORY Normal [facility] Comment on above: Order Comment: Speci men Type: DEVICE SPECIMENOrdering Facility: [facility] Address: [address] [place] [address] Result Comment: Pre- op diagnosis:Infection and inflammatory reaction due to cardiac device, implant, and graft, initial encounter ([facility]) [T82.7XXA]Ischemic cardiomyopathy [I25.5]Chronic systolic CHF (congestive heart failure) ([facility]) [I50.22] Performed By: #### S ####[facility] LABIA [id number] [address] DIAGNOSIS COMMENT Normal [facility] Comment on above: Order Comment: Wes guerin Type: DEVICE SPECIMENOrdering Facility: [facility] Address: [address] [place] [address] Result Comment: C. A Movat stain demonstrates a split level thickness of vein wall. Separately pieces of calcified fibrous cuff are present. There is no evidence of acute inflammation.Laboratory Developed Test (LDT) Disclaimer:Performance characteristics of immunohistochemical, immunofluorescent and chromogenic in-situ hybridization tests have been determined by the performing laboratory within [facility]???s [facility] Department ([facility], [facility], [facility], [facility], [facility], [facility], or [facility]) in a manner consistent with CLIA requirements. One or more of these tests have not been cleared or approved by the FDA. [facility] is regulated under CLIA as qualified to perform high-complexity testing. These tests are used for clinical purposes. They should not be regarded as investigational or for research. Positive and negative controls stain appropriately. Performed By: #### S ####[facility] LABCLIA [id number] [address] STATES OF [facility] FINAL DIAGNOSIS Normal [facility] Comment on above: Order Comment: Speci men Type: DEVICE SPECIMENOrdering Facility: [facility] Address: [address] [place] [address] Result Comment: A. R ight atrium, lead, [...] 06/22/24 11:48 AM Performed By: #### S ####[facility] LABIA [id number] [address] OF [facility] FINAL PERFORMING LAB Normal [facility] Comment on above: Order Comment: Speci men Type: DEVICE SPECIMENOrdering Facility: [facility] Address: [address] [place] [address] Result Comment: Diag nostic interpretation performed at [facility], [address] [place] [address] CLIA# [id number] Director: Nomi Burrows M.D. Performed By: #### S ####[facility] LABIA [id number] [place] [address] [place] GROSS DESCRIPTION Normal [facility] Comment on above: Order Comment: Speci men Type: DEVICE SPECIMENOrdering Facility: [facility] Address: [address] [place] [address] Result Comment: A. H ardware/Device/Foreign BodyReceived in formalin, labeled RA lead is a segment of lead wire measuring 44.5 cm in length and 0.2 cm in diameter. The tip is absent. The screw tip is not present. A connector pin is present with the following inscriptions: [id number] 52 cm [employer] I-S-1B I. The body of the [...] pin is present with the following inscriptions: [employer] I-S 4-LL LL [id number] 86 cm. The body of the lead [...] in formalin, labeled old device is a [employer] X4 [employer]IO [employer]PER[employer]-D metallic pulse generator device, inscribed with the serial number [id number]. The device is also inscribed with model G138 type DDDR [place] . There is no tissue. No sections are submitted. The specimen is reviewed with Dr. Proctor.BILL June 22, 2024 10:13 AMGross examination performed at [facility], [address] [place] [address] Performed By: #### S ####[facility] LABCL[facility] [id number] [place] [address] [place] CBC panel Auto (Bld)on 06-18 Erythrocyte distribution width (RBC) [Ratio] 15.4 % High 11.5-15.0 [facility] Comment on above: Order Comment: Speci men Type: BLOOD SPECIMENOrdering Facility: [facility] Address: [address] [place] [address] Performed By: #### 5 8410-2 ####[facility] LABIA [id number] [address] [place] Hematocrit (Bld) [Volume fraction] 45.1 % Normal 39.0-51.0 [facility] Comment on above: Order Comment: Speci men Type: BLOOD SPECIMENOrdering Facility: [facility] Address: [address] [place] [address] Performed By: #### 5 8410-2 ####[facility] LABIA [id number] [address] [place] Hemoglobin (Bld) [Mass/Vol] 14.6 g/dL Normal 13.0-17.0 [facility] Comment on above: Order Comment: Speci men Type: BLOOD SPECIMENOrdering Facility: [facility] Address: [address] [place] [address] Performed By: #### 5 8410-2 ####[facility] LABIA [id number] [place] [address] [place] MCH (RBC) [Entitic mass] 31.4 pg Normal 26.0-34.0 [facility] Comment on above: Order Comment: Speci men Type: BLOOD SPECIMENOrdering Facility: [facility] Address: [address] [place] [address] Performed By: #### 5 8410-2 ####[facility] LABCL[facility] [id number] [place] [address] [place] MCHC (RBC) [Mass/Vol] 32.4 g/dL Normal 30.5-36.0 [facility] Comment on above: Order Comment: Speci men Type: BLOOD SPECIMENOrdering Facility: [facility] Address: [address] [place] [address] Performed By: #### 5 8410-2 ####[facility] LABIA [id number] [place] [address] [place] [place] MCV (RBC) [Entitic vol] 97.0 fL Normal 80.0-100.0 [facility] Comment on above: Order Comment: Speci men Type: BLOOD SPECIMENOrdering Facility: [facility] Address: [address] [place] [address] Performed By: #### 5 8410-2 ####[facility] LABIA [id number] [place] [address] [place] Nucleated RBC (Bld) [#/Vol] 10*3/uL Normal <0.01 [facility] Comment on above: Order Comment: Speci men Type: BLOOD SPECIMENOrdering Facility: [facility] Address: [address] [place] [address] Performed By: #### 5 8410-2 ####[facility] [id number] [place] [address] [place] Platelet mean volume (Bld) [Entitic vol] 9.8 fL Normal 9.0-12.7 [facility] Comment on above: Order Comment: Speci men Type: BLOOD SPECIMENOrdering Facility: [facility] Address: [address] [place] [address] Performed By: #### 5 8410-2 ####[facility] [id number] [place] [address] [place] Platelets (Bld) [#/Vol] 157 10*3/uL Normal 150-400 [facility] Comment on above: Order Comment: Speci men Type: BLOOD SPECIMENOrdering Facility: [facility] Address: [address] [place], [place] [address] Performed By: #### 5 8410-2 ####[facility] LABCLIA [id number] [place] [address] [place] RBC (Bld) [#/Vol] 4.65 10*6/uL Normal 4.20-6.00 [facility] Comment on above: Order Comment: Speci men Type: BLOOD SPECIMENOrdering Facility: [facility] Address: [address] [place] [address] Performed By: #### 5 8410-2 ####[facility] LABCLIA [id number] [place] [address] [place] WBC (Bld) [#/Vol] 4.57 10*3/uL Normal 3.70-11.00 [facility] Comment on above: Order Comment: Speci men Type: BLOOD SPECIMENOrdering Facility: [facility] Address: [address] [place] [address] Performed By: #### 5 8410-2 ####[facility] [id number] [place] [address] [place] PTT, ANTICOAGULANT THERAPYon 06-18-2024 aPTT Coag (PPP) [Time] 66.5 s High 23.0-32.4 [facility] Comment on above: Order Comment: Speci men Type: BLOOD SPECIMENOrdering Facility: [facility] Address: [address] [place] [address] Performed By: #### P TTAC ####[facility] LABCLIA [id number] [place] [address] [place] aPTT Coag (PPP) [Time] 59.4 s High 23.0-32.4 [facility] Comment on above: Order Comment: Speci men Type: BLOOD SPECIMENOrdering Facility: [facility] Address: [address] [place] [address] Performed By: #### P TTAC ####[facility] LABCL[facility] [id number] [place] [address] [place] TYPE + SCREENon 06-18-2024 ABO A Normal [facility] Comment on above: Order Comment: Speci men Type: BLOOD SPECIMENOrdering Facility: [facility] Address: [address] [place] [address] Performed By: #### T SCR ####[facility] BLOOD BANKCLIA [id number] [place] [address] [place] Rh Nom (Bld) Positive Normal [facility] Comment on above: Order Comment: Speci men Type: BLOOD SPECIMENOrdering Facility: [facility] Address: [address] [place] [address] Performed By: #### T SCR ####[facility] BLOOD BANKCLIA [id number] [place] [address] [place] TYPE AND SCREEN EXPIRATION 06/21/2024 23:59 Normal [facility] Comment on above: Order Comment: Speci men Type: BLOOD SPECIMENOrdering Facility: [facility] Address: [address] [place] [address] Performed By: #### T SCR ####[facility] BLOOD BANKCLIA [id number] [place] [address] [place] CBC panel Auto (Bld)on 06-17 Erythrocyte distribution width (RBC) [Ratio] 15.3 % High 11.5-15.0 [facility] Comment on above: Order Comment: Speci men Type: BLOOD SPECIMENOrdering Facility: [facility] Address: [address] [place] [address] Performed By: #### 5 8410-2 ####[facility] LABCLIA [id number] [place] [address] [place] Hematocrit (Bld) [Volume fraction] 46.7 % Normal 39.0-51.0 [facility] Comment on above: Order Comment: Speci men Type: BLOOD SPECIMENOrdering Facility: [facility] Address: [address] [place] [address] Performed By: #### 5 8410-2 ####[facility] LABCLIA [id number] [place] [address] [place] Hemoglobin (Bld) [Mass/Vol] 14.9 g/dL Normal 13.0-17.0 [facility] Comment on above: Order Comment: Speci men Type: BLOOD SPECIMENOrdering Facility: [facility] Address: [address] [place] [address] Performed By: #### 5 8410-2 ####[facility] LABCLIA [id number] [place] [address] [place] MCH (RBC) [Entitic mass] 31.1 pg Normal 26.0-34.0 [facility] Comment on above: Order Comment: Speci men Type: BLOOD SPECIMENOrdering Facility: [facility] Address: [address] [place] [address] Performed By: #### 5 8410-2 ####[facility] LABCLIA [id number] [place] [address] [place] MCHC (RBC) [Mass/Vol] 31.9 g/dL Normal 30.5-36.0 [facility] Comment on above: Order Comment: Speci men Type: BLOOD SPECIMENOrdering Facility: [facility] Address: [address] [place] [address] Performed By: #### 5 8410-2 ####[facility] LABCLIA [id number] [place] [address] [place] MCV (RBC) [Entitic vol] 97.5 fL Normal 80.0-100.0 [facility] Comment on above: Order Comment: Speci men Type: BLOOD SPECIMENOrdering Facility: [facility] Address: [address] [place] [address] Performed By: #### 5 8410-2 ####[facility] LABCLIA [id number] [place] [address] [place] Nucleated RBC (Bld) [#/Vol] 10*3/uL Normal <0.01 [facility] Comment on above: Order Comment: Speci men Type: BLOOD SPECIMENOrdering Facility: [facility] Address: [address] [place] [address] Performed By: #### 5 8410-2 ####[facility] [id number] [place] [address] [place] Platelet mean volume (Bld) [Entitic vol] 9.9 fL Normal 9.0-12.7 [facility] Comment on above: Order Comment: Speci men Type: BLOOD SPECIMENOrdering Facility: [facility] Address: [address] [place] [address] Performed By: #### 5 8410-2 ####[facility] [id number] [place] [address] [place] Platelets (Bld) [#/Vol] 166 10*3/uL Normal 150-400 [facility] Comment on above: Order Comment: Speci men Type: BLOOD SPECIMENOrdering Facility: [facility] Address: [address] [place] [address] Performed By: #### 5 8410-2 ####[facility] [id number] [place] [address] [place] RBC (Bld) [#/Vol] 4.79 10*6/uL Normal 4.20-6.00 [facility] Comment on above: Order Comment: Speci men Type: BLOOD SPECIMENOrdering Facility: [facility] Address: [address] [place] [address] Performed By: #### 5 8410-2 ####[facility] [id number] [place] [address] [place] WBC (Bld) [#/Vol] 4.27 10*3/uL Normal 3.70-11.00 [facility] Comment on above: Order Comment: Speci men Type: BLOOD SPECIMENOrdering Facility: [facility] Address: [address] [place] [address] Performed By: #### 5 8410-2 ####[facility] LABCLIA [id number] [place] [address] [place] ECG COMPLETEon 06-17-2024 ECG COMPLETE Normal [facility] PTT, ANTICOAGULANT THERAPYon 06-17-2024 aPTT Coag (PPP) [Time] 47.9 s High 23.0-32.4 [facility] Comment on above: Order Comment: Speci men Type: BLOOD SPECIMENOrdering Facility: [facility] Address: [address] [place] [address] Performed By: #### P TTAC ####[facility] LABCLIA [id number] [address] STATES OF [facility] aPTT Coag (PPP) [Time] 71.0 s High 23.0-32.4 [facility] Comment on above: Order Comment: Speci men Type: BLOOD SPECIMENOrdering Facility: [facility] Address: [address] [place] [address] Performed By: #### P TTAC ####[facility] LABCLIA [id number] [address] aPTT Coag (PPP) [Time] 82.2 s High 23.0-32.4 [facility] Comment on above: Order Comment: Speci men Type: BLOOD SPECIMENOrdering Facility: [facility] Address: [address] [place] [address] Result Comment: Inte rpret with caution. Sample centrifuged greater than 1 hour from collection time. According to Clinical and Laboratory Standards [place] guidelines, results could be falsely decreased due to heparin neutralization by in vitro release of platelet factor 4. Suggest correlation with clinical findings and redraw if indicated. Performed By: #### P TTAC ####[facility] LABCLIA [id number] [address] [address] [place] Basic metabolic 2000 panelon 06-16-2024 Anion gap [Moles/Vol] 13 mmol/L Normal 8-15 [facility] Comment on above: Order Comment: Speci men Type: BLOOD SPECIMENOrdering Facility: [facility] Address: [address] [place] [address] Performed By: #### 2 4321-2, ####[facility] LABCLIA [id number] [place] [address] [place] Calcium [Mass/Vol] 9.0 mg/dL Normal 8.5-10.2 [facility] Comment on above: Order Comment: Speci men Type: BLOOD SPECIMENOrdering Facility: [facility] Address: [address] [place] [address] Performed By: #### 2 4320-2, ####[facility] LABCL[facility] [id number] [place] [address] [place] Chloride [Moles/Vol] 101 mmol/L Normal 98-107 [facility] Comment on above: Order Comment: Speci men Type: BLOOD SPECIMENOrdering Facility: [facility] Address: [address] [place] [address] Performed By: #### 2 432-2, ####[facility] LABCLIA [id number] [place] [id number] [place] CO2 [Moles/Vol] 20 mmol/L Low 22-30 [facility] Comment on above: Order Comment: Speci men Type: BLOOD SPECIMENOrdering Facility: [facility] Address: [address] [place] [address] Performed By: #### 2 4321-2, ####[facility] LABCLIA [id number] [place] [id number] [place] Creatinine [Mass/Vol] 1.10 mg/dL Normal 0.73-1.22 [facility] Comment on above: Order Comment: Wes guerin Type: BLOOD SPECIMENOrdering Facility: [facility] Address: [address] [place] [address] Performed By: #### 2 4321-2, ####[facility] LABCLIA [id number] [place] [address] [place] Creatinine and Glomerular filtration rate.predicted panel (S/P/Bld) 73 mL/min/1.73m??? Normal >=60 [facility] Comment on above: Order Comment: Wes guerin Type: BLOOD SPECIMENOrdering Facility: [facility] Address: [address] [place] [address] Result Comment: Elvia mated Glomerular Filtration Rate [...] actual GFR. Performed By: #### 2 4321-2, ####[facility] LABCLIA [id number] [place] [address] [place] Glucose [Mass/Vol] 133 mg/dL High 74-99 [facility] Comment on above: Order Comment: Wes guerin Type: BLOOD SPECIMENOrdering Facility: [facility] Address: [address] [place] [address] Result Comment: The [place] [employer] (ADA) provides guidance for cutoff [...] Standards of Medical Care in Diabetes 2016, [place] [employer]. Diabetes Care. 2016.39(Suppl 1). Performed By: #### 2 432-2, ####[facility] LABCLIA [id number] [address] [address] [place] Potassium [Moles/Vol] 4.2 mmol/L Normal 3.7-5.1 [facility] Comment on above: Order Comment: Speci men Type: BLOOD SPECIMENOrdering Facility: [facility] Address: [address] [place] [address] Performed By: #### 2 4322, ####[facility] LABCLIA [id number] [place] [address] [place] Sodium [Moles/Vol] 134 mmol/L Low 136-144 [facility] Comment on above: Order Comment: Speci men Type: BLOOD SPECIMENOrdering Facility: [facility] Address: [address] [place] [address] Performed By: #### 2 2, ####[facility] LABCL[facility] [id number] [place] [address] [place] Urea nitrogen [Mass/Vol] 27 mg/dL High 9-24 [facility] Comment on above: Order Comment: Speci men Type: BLOOD SPECIMENOrdering Facility: [facility] Address: [address] [place] [address] Performed By: #### 2 2, ####[facility] LABCLIA [id number] [place] [id number] [place] CONSULTon 06-16-2024 CONSULT Normal [facility] CONSULT Normal [facility] CONSULT PROGon 06-16-2024 CONSULT PROG Normal [facility] CONSULT PROG Normal [facility] Magnesium SerPl-mCncon 06-16 Magnesium [Mass/Vol] 2.0 mg/dL Normal 1.7-2.3 [facility] Comment on above: Order Comment: Speci men Type: BLOOD SPECIMENOrdering Facility: [facility] Address: [address] [place] [address] Performed By: #### 2 4321-2, 77828-7 ####[facility] LABCL[facility] [id number] [place] [address] [place] NM PET/CT CARD PERF REST/STR ESSon 06-16-2024 NM PET/CT CARD PERF REST/STRESS Normal [facility] NM PET/CT CARDIAC VIABILITYo n 06-16-2024 NM PET/CT CARDIAC VIABILITY Normal [facility] PTT, ANTICOAGULANT THERAPYon 06-16-2024 aPTT Coag (PPP) [Time] 46.9 s High 23.0-32.4 [facility] Comment on above: Order Comment: Speci men Type: BLOOD SPECIMENOrdering Facility: [facility] Address: [address] [place] [address] Performed By: #### P TTAC ####[facility] LABCLIA [id number] [place] [address] [place] Vancomycin Lima SerPl-mCncon 06-16-2024 Vancomycin random [Mass/Vol] 14.7 ug/mL Normal 10.0-20.0 [facility] Comment on above: Order Comment: Speci men Type: BLOOD SPECIMENOrdering Facility: [facility] Address: [address] [place] [address] Result Comment: Refe rence ranges and high/low indicator flags are provided as general guidelines only. The treating physician must determine appropriate target levels/dosing based on the specific clinical situation. Performed By: #### 4 091-5 ####[facility] LABCLIA [id number] [place] [address] [place] Basic metabolic 2000 panelon 06-15-2024 Anion gap [Moles/Vol] 14 mmol/L Normal 8-15 [facility] Comment on above: Order Comment: Speci men Type: BLOOD SPECIMENOrdering Facility: [facility] Address: [address] [place] [id number] Performed By: #### 2 432-2, ####[facility] LABCLIA [id number] [address] [address] [place] Calcium [Mass/Vol] 9.2 mg/dL Normal 8.5-10.2 [facility] Comment on above: Order Comment: Speci men Type: BLOOD SPECIMENOrdering Facility: [facility] Address: [address] [place], [place] [address] Performed By: #### 2 432-2, ####[facility] LABCLIA [id number] [place] [address] [place] Chloride [Moles/Vol] 104 mmol/L Normal 98-107 [facility] Comment on above: Order Comment: Speci men Type: BLOOD SPECIMENOrdering Facility: [facility] Address: [address] [place], [place] [address] Performed By: #### 2 432-2, ####[facility] LABCLIA [id number] [place] [address] [place] CO2 [Moles/Vol] 19 mmol/L Low 22-30 [facility] Comment on above: Order Comment: Speci men Type: BLOOD SPECIMENOrdering Facility: [facility] Address: [address] [place], [place] [address] Performed By: #### 2 4321-2, ####[facility] LABCLIA [id number] [place] [id number] [place] Creatinine [Mass/Vol] 0.97 mg/dL Normal 0.73-1.22 [facility] Comment on above: Order Comment: Speci men Type: BLOOD SPECIMENOrdering Facility: [facility] Address: [address] [place], [place] [address] Performed By: #### 2 4320-2, ####[facility] LABCLIA [id number] [place] [address] [place] Creatinine and Glomerular filtration rate.predicted panel (S/P/Bld) 85 mL/min/1.73m??? Normal >=60 [facility] Comment on above: Order Comment: Wes guerin Type: BLOOD SPECIMENOrdering Facility: [facility] Address: [address] [place] [address] Result Comment: Elvia mated Glomerular Filtration Rate [...] reflect actual GFR. Performed By: #### 2 432-, ####[facility] LABCLIA [id number] [place] [address] [place] Glucose [Mass/Vol] 163 mg/dL High 74-99 [facility] Comment on above: Order Comment: Wes guerin Type: BLOOD SPECIMENOrdering Facility: [facility] Address: [address] [place] [address] Result Comment: The [place] Diabetes Association (ADA) provides guidance for cutoff [...] Standards of Medical Care in Diabetes 2016, [place] [employer]. Diabetes Care. 2016.39(Suppl 1). Performed By: #### 2 4321-, ####[facility] LABCLIA [id number] [place] [address] [place] Potassium [Moles/Vol] 4.4 mmol/L Normal 3.7-5.1 [facility] Comment on above: Order Comment: Speci men Type: BLOOD SPECIMENOrdering Facility: [facility] Address: [address] [place] [address] Performed By: #### 2 4321-2, ####[facility] LABCLIA [id number] [place] [id number] [place] Sodium [Moles/Vol] 137 mmol/L Normal 136-144 [facility] Comment on above: Order Comment: Speci men Type: BLOOD SPECIMENOrdering Facility: [facility] Address: [address] [place] [address] Performed By: #### 2 4321-2, ####[facility]IA [id number] [place] [address] [place] Urea nitrogen [Mass/Vol] 26 mg/dL High 9-24 [facility] Comment on above: Order Comment: Speci men Type: BLOOD SPECIMENOrdering Facility: [facility] Address: [address] [place] [address] Performed By: #### 2 432-2, ####[facility]IA [id number] [place] [id number] [place] CARD CATH DIAGNOSTICon 06-15 CARD CATH DIAGNOSTIC Normal [facility] CASE MANAGEMon 06-15-2024 CASE MANAGEM Normal [facility] CONSULT PROGon 06-15-2024 CONSULT PROG Normal [facility] Magnesium SerPl-mCncon 06-15 Magnesium [Mass/Vol] 2.0 mg/dL Normal 1.7-2.3 [facility] Comment on above: Order Comment: Speci men Type: BLOOD SPECIMENOrdering Facility: [facility] Address: [address] [place] [address] Performed By: #### 2 4321-2, ####[facility] LABCLIA [id number] [address] [address] [place] PT EDon 06-15-2024 PT ED Normal [facility] Basic metabolic 2000 panelon 06-14-2024 Anion gap [Moles/Vol] 12 mmol/L Normal 8-15 [facility] Comment on above: Order Comment: Speci men Type: BLOOD SPECIMENOrdering Facility: [facility] Address: [address] [place], [place] [address] Performed By: #### 2 4321-2, ####[facility] LABCLIA [id number] [place] [id number] [place] Calcium [Mass/Vol] 9.0 mg/dL Normal 8.5-10.2 [facility] Comment on above: Order Comment: Speci men Type: BLOOD SPECIMENOrdering Facility: [facility] Address: [address] [place], [place] [phone] Performed By: #### 2 4321-2, ####[facility] LABCL[facility] [id number] [place] [address] [place] Chloride [Moles/Vol] 106 mmol/L Normal 98-107 [facility] Comment on above: Order Comment: Speci men Type: BLOOD SPECIMENOrdering Facility: [facility] Address: [address] [place] [address] Performed By: #### 2 4321-2, ####[facility] LABCL[facility] [id number] [place] [id number] [place] CO2 [Moles/Vol] 22 mmol/L Normal 22-30 [facility] Comment on above: Order Comment: Speci men Type: BLOOD SPECIMENOrdering Facility: [facility] Address: [address] [place] [address] Performed By: #### 2 4321-2, ####[facility] LABCLIA [id number] [address] [address] [place] Creatinine [Mass/Vol] 0.96 mg/dL Normal 0.73-1.22 [facility] Comment on above: Order Comment: Wes guerin Type: BLOOD SPECIMENOrdering Facility: [facility] Address: [address] [place] [address] Performed By: #### 2 4320-07, ####[facility] [id number] [address] [address] [place] Creatinine and Glomerular filtration rate.predicted panel (S/P/Bld) 86 mL/min/1.73m??? Normal >=60 [facility] Comment on above: Order Comment: [facility] Type: BLOOD SPECIMENOrdering Facility: [facility] Address: [address] [place] [address] Result Comment: Elvia mated Glomerular Filtration Rate [...] actual GFR. Performed By: #### 2 4320-07, ####[facility]IA [id number] [address] [address] [place] Glucose [Mass/Vol] 119 mg/dL High 74-99 [facility] Comment on above: Order Comment: Speci truong Type: BLOOD SPECIMENOrdering Facility: [facility] Address: [address] [place] [address] Result Comment: The [place] Diabetes [employer] (ADA) provides guidance for cutoff [...] Standards of Medical Care in Diabetes 2016, [place] [employer]. Diabetes Care. 2016.39(Suppl 1). Performed By: #### 2 43206-29, ####[facility] LABCL[facility] [id number] [place] [address] [place] Potassium [Moles/Vol] 4.4 mmol/L Normal 3.7-5.1 [facility] Comment on above: Order Comment: Wes guerin Type: BLOOD SPECIMENOrdering Facility: [facility] Address: [address] [place] [address] Performed By: #### 2 4320-07, ####[facility] [id number] [place] [address] [place] Sodium [Moles/Vol] 140 mmol/L Normal 136-144 [facility] Comment on above: Order Comment: Wes guerin Type: BLOOD SPECIMENOrdering Facility: [facility] Address: [address] [place] [address] Performed By: #### 2 4320-07, ####[facility] [id number] [place] [address] [place] Urea nitrogen [Mass/Vol] 24 mg/dL Normal 9-24 [facility] Comment on above: Order Comment: Rubiai men Type: BLOOD SPECIMENOrdering Facility: [facility] Address: [address] [place] [address] Performed By: #### 2 4320-07, ####[facility] [id number] [address] [address] [place] CASE MGT INIT ASSESon 2023 CASE MGT INIT ASSES Normal [facility] CONFIRM BLOOD TYPEon 024 ABO A Normal [facility] Comment on above: Order Comment: Speci men Type: BLOOD SPECIMENOrdering Facility: [facility] [facility] Address: [address] [place] [address] Performed By: #### C ONABO ####CC [facility] BLOOD BANKCLIA [id number] [place] [address] [place] Rh Nom (Bld) Positive Normal [facility] Comment on above: Order Comment: Speci men Type: BLOOD SPECIMENOrdering Facility: [facility] Address: [address] [place] [address] Performed By: #### C ONABO ####CC [facility] BLOOD BANKIA [id number] [place] [address] [place] CONSULTon 06-14-2024 CONSULT Normal [facility] CONSULT PROGon 06-14-2024 CONSULT PROG Normal [facility] CTA ABD/PELV W IVCONon 06-14 CTA ABD/PELV W IVCON Normal [facility] CTA CHEST (GATED) W IVCONon 06-14-2024 CTA CHEST (GATED) W IVCON Normal [facility] [id number] 06-14-2024 ECG01 Normal [facility] Magnesium SerPl-mCncon 06-14 Magnesium [Mass/Vol] 2.1 mg/dL Normal 1.7-2.3 [facility] Comment on above: Order Comment: Speci men Type: BLOOD SPECIMENOrdering Facility: [facility] Address: [address] [place] [address] Performed By: #### 2 4321-2, 15643-5 ####[facility] LABCLIA [id number] [place] [address] [place] Bacteria Bld Culton 06-13-20 24 Bacteria identified Cx Nom (Bld) CULTURE, BLOOD: No growth 5 days Normal [facility] Comment on above: Performed By: #### 6 00-7 ####[facility] LABCLIA [id number] [place] [address] [place] Bacteria identified Cx Nom (Bld) CULTURE, BLOOD: No growth 5 days Normal [facility] Comment on above: Performed By: #### 6 00-7 ####[facility] LABCLIA [id number] [place] [address] [place] CBC W Auto Differential pane l (Bld)on 06-13-2024 Basophils (Bld) [#/Vol] 0.06 10*3/uL Normal <0.11 [facility] Comment on above: Order Comment: Speci men Type: BLOOD SPECIMENOrdering Facility: [facility] Address: [address] [place] [address] Performed By: #### 5 7021-8, 43957-6 ####[facility] LABCLIA [id number] [place] [address] [place] Basophils/100 WBC (Bld) 1.0 % Normal [facility] Comment on above: Order Comment: Speci men Type: BLOOD SPECIMENOrdering Facility: [facility] Address: [address] [place] [address] Performed By: #### 5 7021-8, 43156-8 ####[facility] LABCLIA [id number] [place] [address] [place] Differential cell count method Nom (Bld) Auto Normal [facility] Comment on above: Order Comment: Speci men Type: BLOOD SPECIMENOrdering Facility: [facility] Address: [address] [place] [address] Performed By: #### 5 7021-8, 88517-1 ####[facility] LABCLIA [id number] [place] [address] [place] Eosinophils (Bld) [#/Vol] 0.19 10*3/uL Normal <0.46 [facility] Comment on above: Order Comment: Speci men Type: BLOOD SPECIMENOrdering Facility: [facility] Address: [address] [place] [address] Performed By: #### 5 7021-8, 57803-5 ####[facility] LABCLIA [id number] [place] [address] [place] Eosinophils/100 WBC (Bld) 3.2 % Normal [facility] Comment on above: Order Comment: Speci men Type: BLOOD SPECIMENOrdering Facility: [facility] Address: [address] [place] [address] Performed By: #### 5 7021-8, 08840-0 ####[facility] LABCLIA [id number] [place] [address] [place] Erythrocyte distribution width (RBC) [Ratio] 15.6 % High 11.5-15.0 [facility] Comment on above: Order Comment: Speci men Type: BLOOD SPECIMENOrdering Facility: [facility] Address: [address] [place] [address] Performed By: #### 5 7021-8, 00154-8 ####[facility] LABCLIA [id number] [place] [address] [place] Hematocrit (Bld) [Volume fraction] 43.8 % Normal 39.0-51.0 [facility] Comment on above: Order Comment: Speci men Type: BLOOD SPECIMENOrdering Facility: [facility] Address: [address] [place] [address] Performed By: #### 5 7021-8, 47877-0 ####[facility] LABCLIA [id number] [place] [address] [place] Hemoglobin (Bld) [Mass/Vol] 14.4 g/dL Normal 13.0-17.0 [facility] Comment on above: Order Comment: Speci men Type: BLOOD SPECIMENOrdering Facility: [facility] Address: [address] [place] [address] Performed By: #### 5 7021-8, 72032-8 ####[facility] LABCLIA [id number] [place] [address] [place] Immature granulocytes (Bld) [#/Vol] 0.04 10*3/uL Normal <0.10 [facility] Comment on above: Order Comment: Speci men Type: BLOOD SPECIMENOrdering Facility: [facility] Address: [address] [place] [address] Performed By: #### 5 7021-8, 70768-4 ####[facility] LABCLIA [id number] [place] [address] [place] Immature granulocytes/100 WBC (Bld) 0.7 % Normal [facility] Comment on above: Order Comment: Speci men Type: BLOOD SPECIMENOrdering Facility: [facility] Address: [address] [place] [address] Performed By: #### 5 7021-8, 23271-1 ####[facility] LABCLIA [id number] [place] [address] [place] Lymphocytes (Bld) [#/Vol] 0.68 10*3/uL Low 1.00-4.00 [facility] Comment on above: Order Comment: Speci men Type: BLOOD SPECIMENOrdering Facility: [facility] Address: [address] [place] [address] Performed By: #### 5 7021-8, 57715-7 ####[facility] LABCLIA [id number] [place] [address] [place] Lymphocytes/100 WBC (Bld) 11.4 % Normal [facility] Comment on above: Order Comment: Speci men Type: BLOOD SPECIMENOrdering Facility: [facility] Address: [address] [place] [address] Performed By: #### 5 7021-8, 63038-8 ####[facility] LABCLIA [id number] [place] [address] [place] MCH (RBC) [Entitic mass] 31.4 pg Normal 26.0-34.0 [facility] Comment on above: Order Comment: Speci men Type: BLOOD SPECIMENOrdering Facility: [facility] Address: [address] [place] [address] Performed By: #### 5 7021-8, 41664-3 ####[facility] LABIA [id number] [place] [address] [place] MCHC (RBC) [Mass/Vol] 32.9 g/dL Normal 30.5-36.0 [facility] Comment on above: Order Comment: Speci men Type: BLOOD SPECIMENOrdering Facility: [facility] Address: [address] [place] [address] Performed By: #### 5 7021-8, 21336-8 ####[facility] [id number] [place] [address] [place] MCV (RBC) [Entitic vol] 95.6 fL Normal 80.0-100.0 [facility] Comment on above: Order Comment: Speci men Type: BLOOD SPECIMENOrdering Facility: [facility] Address: [address] [place] [address] Performed By: #### 5 7021-8, 58060-0 ####[facility] LABIA [id number] [place] [address] [place] Monocytes (Bld) [#/Vol] 0.51 10*3/uL Normal <0.87 [facility] Comment on above: Order Comment: Speci men Type: BLOOD SPECIMENOrdering Facility: [facility] Address: [address] [place] [address] Performed By: #### 5 7021-8, 72097-0 ####[facility] LABIA [id number] [place] [address] [place] Monocytes/100 WBC (Bld) 8.6 % Normal [facility] Comment on above: Order Comment: Speci men Type: BLOOD SPECIMENOrdering Facility: [facility] Address: [address] [place] [address] Performed By: #### 5 7021-8, 28233-3 ####[facility] LABCLIA [id number] [place] [address] [place] Neutrophils (Bld) [#/Vol] 4.47 10*3/uL Normal 1.45-7.50 [facility] Comment on above: Order Comment: Speci men Type: BLOOD SPECIMENOrdering Facility: [facility] Address: [address] [place] [address] Performed By: #### 5 7021-8, 40808-2 ####[facility] LABCLIA [id number] [place] [address] [place] Neutrophils/100 WBC (Bld) 75.1 % Normal [facility] Comment on above: Order Comment: Speci men Type: BLOOD SPECIMENOrdering Facility: [facility] Address: [address] [place] [address] Performed By: #### 5 7021-8, 17846-8 ####[facility] LABCLIA [id number] [place] [address] [place] Nucleated RBC (Bld) [#/Vol] 10*3/uL Normal <0.01 [facility] Comment on above: Order Comment: Speci men Type: BLOOD SPECIMENOrdering Facility: [facility] Address: [address] [place] [address] Performed By: #### 5 7021-8, 11861-4 ####[facility] LABCLIA [id number] [place] [address] [place] Nucleated RBC/100 WBC (Bld) [Ratio] 0.0 /100 WBC Normal [facility] Comment on above: Order Comment: Speci men Type: BLOOD SPECIMENOrdering Facility: [facility] Address: [address] [place] [address] Performed By: #### 5 7021-8, 44345-0 ####[facility] LABCLIA [id number] [place] [address] [place] Platelet mean volume (Bld) [Entitic vol] 9.5 fL Normal 9.0-12.7 [facility] Comment on above: Order Comment: Speci men Type: BLOOD SPECIMENOrdering Facility: [facility] Address: [address] [place] [address] Performed By: #### 5 7021-8, 17587-9 ####[facility] LABCLIA [id number] [place] [address] [place] Platelets (Bld) [#/Vol] 199 10*3/uL Normal 150-400 [facility] Comment on above: Order Comment: Speci men Type: BLOOD SPECIMENOrdering Facility: [facility] Address: [address] [place] [address] Performed By: #### 5 7021-8, 04976-2 ####[facility] LABCLIA [id number] [place] [address] [place] RBC (Bld) [#/Vol] 4.58 10*6/uL Normal 4.20-6.00 [facility] Comment on above: Order Comment: Speci men Type: BLOOD SPECIMENOrdering Facility: [facility] Address: [address] [place] [address] Performed By: #### 5 7021-8, 90174-9 ####[facility] LABCLIA [id number] [place] [address] [place] WBC (Bld) [#/Vol] 5.95 10*3/uL Normal 3.70-11.00 [facility] Comment on above: Order Comment: Speci men Type: BLOOD SPECIMENOrdering Facility: [facility] Address: [address] [place], [place] [address] Performed By: #### 5 7021-8, 55653-7 ####[facility] LABCLIA [id number] [place] [id number] [place] CNOVon 06-13-2024 CNOV Normal [facility] CONSULTon 06-13-2024 CONSULT Normal [facility] Comprehensive metabolic 2000 panelon 06-13-2024 Albumin [Mass/Vol] 4.3 g/dL Normal 3.9-4.9 [facility] Comment on above: Order Comment: Speci men Type: BLOOD SPECIMENOrdering Facility: [facility] Address: [address] [place] [address] Performed By: #### 2 4323-8, 17563-2, 63613-4 ####[facility] LABCLIA [id number] [place] [address] [place] ALP [Catalytic activity/Vol] 77 U/L Normal 38-113 [facility] Comment on above: Order Comment: Speci men Type: BLOOD SPECIMENOrdering Facility: [facility] Address: [address] [place] [address] Performed By: #### 2 4323-8, 33194-3, 82720-2 ####[facility] LABCLIA [id number] [place] [address] [place] ALT [Catalytic activity/Vol] 39 U/L Normal 10-54 [facility] Comment on above: Order Comment: Speci men Type: BLOOD SPECIMENOrdering Facility: [facility] Address: [address] [place] [address] Performed By: #### 2 4323-8, 95261-2, 12703-3 ####[facility] LABCLIA [id number] [place] [id number] [place] Anion gap [Moles/Vol] 13 mmol/L Normal 8-15 [facility] Comment on above: Order Comment: Speci men Type: BLOOD SPECIMENOrdering Facility: [facility] Address: [address] [place] [address] Performed By: #### 2 4323-8, 82031-7, 19586-3 ####[facility] LABCLIA [id number] [place] [id number] [place] AST [Catalytic activity/Vol] 31 U/L Normal 14-40 [facility] Comment on above: Order Comment: Speci men Type: BLOOD SPECIMENOrdering Facility: [facility] Address: [address] [place] [address] Performed By: #### 2 4323-8, , 98644-1 ####[facility] LABCLIA [id number] [place] [address] [place] Bilirubin [Mass/Vol] 0.3 mg/dL Normal 0.2-1.3 [facility] Comment on above: Order Comment: Speci men Type: BLOOD SPECIMENOrdering Facility: [facility] Address: [address] [place] [address] Performed By: #### 2 4323-8, , 47769-4 ####[facility] LABCLIA [id number] [place] [address] [place] Calcium [Mass/Vol] 9.2 mg/dL Normal 8.5-10.2 [facility] Comment on above: Order Comment: Speci men Type: BLOOD SPECIMENOrdering Facility: [facility] Address: [address] [place], [place] [address] Performed By: #### 2 4323-8, 96855-1, 48205-4 ####[facility] LABCLIA [id number] [place] [id number] [place] Chloride [Moles/Vol] 105 mmol/L Normal 98-107 [facility] Comment on above: Order Comment: Speci men Type: BLOOD SPECIMENOrdering Facility: [facility] Address: [address] [place] [address] Performed By: #### 2 4323-8, 15851-2, 64504-9 ####[facility] LABIA [id number] [place] [address] [place] CO2 [Moles/Vol] 21 mmol/L Low 22-30 [facility] Comment on above: Order Comment: Speci men Type: BLOOD SPECIMENOrdering Facility: [facility] Address: [address] [place] [address] Performed By: #### 2 4323-8, 62988-3, 65867-6 ####[facility] LABIA [id number] [place] [address] [place] Creatinine [Mass/Vol] 1.02 mg/dL Normal 0.73-1.22 [facility] Comment on above: Order Comment: Speci men Type: BLOOD SPECIMENOrdering Facility: [facility] Address: [address] [place] [address] Performed By: #### 2 4323-8, 90646-8, 21343-7 ####[facility] LABIA [id number] [place] [address] [place] Creatinine and Glomerular filtration rate.predicted panel (S/P/Bld) 80 mL/min/1.73m??? Normal >=60 [facility] Comment on above: Order Comment: Speci men Type: BLOOD SPECIMENOrdering Facility: [facility] Address: [address] [place] [address] Result Comment: Elvia mated Glomerular Filtration Rate [...] actual GFR. Performed By: #### 2 4323-8, 09548-8, 65765-4 ####[facility] LABCLIA [id number] [address] [address] [place] Glucose [Mass/Vol] 131 mg/dL High 74-99 [facility] Comment on above: Order Comment: Speci men Type: BLOOD SPECIMENOrdering Facility: [facility] Address: [address] [place] [address] Result Comment: The [place] Diabetes Association (ADA) provides guidance for cutoff [...] Standards of Medical Care in Diabetes 2016, [place] [employer]. Diabetes Care. 2016.39(Suppl 1). Performed By: #### 2 4323-8, 23830-9, 71809-3 ####[facility] LABIA [id number] [place] [id number] [place] Potassium [Moles/Vol] 4.4 mmol/L Normal 3.7-5.1 [facility] Comment on above: Order Comment: Speci men Type: BLOOD SPECIMENOrdering Facility: [facility] Address: [address] [place] [address] Performed By: #### 2 4323-8, 28427-6, 54892-4 ####[facility] LABIA [id number] [place] [id number] [place] Protein [Mass/Vol] 7.2 g/dL Normal 6.3-8.0 [facility] Comment on above: Order Comment: Speci men Type: BLOOD SPECIMENOrdering Facility: [facility] Address: [address] [place] [address] Performed By: #### 2 4323-8, 95187-5, 20996-5 ####[facility] LABCLIA [id number] [place] [id number] [place] Sodium [Moles/Vol] 139 mmol/L Normal 136-144 [facility] Comment on above: Order Comment: Speci men Type: BLOOD SPECIMENOrdering Facility: [facility] Address: [address] [place] [address] Performed By: #### 2 4323-8, 84791-1, 98928-1 ####[facility] LABCLIA [id number] [place] [address] [place] Urea nitrogen [Mass/Vol] 24 mg/dL Normal 9-24 [facility] Comment on above: Order Comment: Speci men Type: BLOOD SPECIMENOrdering Facility: [facility] Address: [address] [place] [address] Performed By: #### 2 4323-8, 12998-7, 98479-2 ####[facility] LABCLIA [id number] [place] [address] [place] ECG COMPLETEon 06-13-2024 ECG COMPLETE Normal [facility] ECG COMPLETE Normal [facility] HISTORY PHYSICALon HISTORY PHYSICAL Normal [facility] HbA1c (Bld)on 06-13-2024 Average glucose Estimated from glycated hemoglobin (Bld) [Mass/Vol] 186 mg/dL Normal [facility] Comment on above: Order Comment: Speci men Type: BLOOD SPECIMENOrdering Facility: [facility] Address: [address] [place] [address] Result Comment: eAG: (Estimated average glucose) is a calculated value from HgbA1c and is commercial pest control representative of the average blood glucose level in the last 2-3 month period. Performed By: #### 5 7021-8, 21354-7 ####[facility] LABCLIA [id number] [place] [address] [place] HbA1c (Bld) [Mass fraction] 8.1 % High 4.3-5.6 [facility] Comment on above: Order Comment: Wes guerin Type: BLOOD SPECIMENOrdering Facility: [facility] Address: [address] [place] [address] Result Comment: [place] Diabetes Association guidelines indicate that patients with HgbA1c in the range 5.7-6.4% are at increased risk for development of diabetes, and intervention by lifestyle modification may be beneficial. HgbA1c greater or equal to 6.5% is considered diagnostic of diabetes. Performed By: #### 5 7021-8, 79049-4 ####[facility] LABCLIA [id number] [place] [address] [place] Magnesium SerPl-ncon 06-13 Magnesium [Mass/Vol] 2.0 mg/dL Normal 1.7-2.3 [facility] Comment on above: Order Comment: Wes guerin Type: BLOOD SPECIMENOrdering Facility: [facility] Address: [address] [place] [address] Performed By: #### 2 4323-8, 92863-9, 73997-1 ####[facility] LABIA [id number] [address] [place] NT-proBNP [facility] 06-13 Natriuretic peptide.B prohormone N-Terminal [Mass/Vol] 643 pg/mL High <125 [facility] Comment on above: Order Comment: Wes guerin Type: BLOOD SPECIMENOrdering Facility: [facility] Address: [address] [place] [address] Performed By: #### 2 4323-8, 27879-4, 26654-9 ####[facility] LABIA [id number] [place] [address] [place] PT panel Coag (PPP)on 2023 INR Coag (PPP) [Relative time] 1.1 {INR} Normal 0.9-1.3 [facility] Comment on above: Order Comment: Wes guerin Type: BLOOD SPECIMENOrdering Facility: [facility] Address: [address] [place] [address] Result Comment: Mere min K Antagonist (VKA) Therapeutic Range: INR 2 to 3 (Target INR of 2.5)Note: For patients treated with VKA drugs, such as warfarin, the [place] [employer] 2012 Guideline recommends [...] of 3).Tara GH, et al. Chest 2012, 141:7S-47SNishangella RA, et al. [facility] 2017, 70: 252-289 Performed By: #### 3 4528-0 ####[facility] LABIA [id number] [place] [address] [place] PT Coag (PPP) [Time] 11.7 s Normal 9.7-13.0 [facility] Comment on above: Order Comment: Wes guerin Type: BLOOD SPECIMENOrdering Facility: [facility] Address: [address] [place] [address] Performed By: #### 3 4528-0 ####[facility] LABCLIA [id number] [place] [address] [place] TYPE + SCREENon 06-13-2024 ABO A Normal [facility] Comment on above: Order Comment: Wes guerin Type: BLOOD SPECIMENOrdering Facility: [facility] Address: [address] [place] [address] Performed By: #### T SCR ####[facility] BLOOD BANKCLIA [id number] [place] [address] [place] Rh Nom (Bld) Positive Normal [facility] Comment on above: Order Comment: Speci men Type: BLOOD SPECIMENOrdering Facility: [facility] Address: [address] [place] [address] Performed By: #### T SCR ####[facility] B[facility] BANKCLIA [id number] [place] [address] [place] TYPE AND SCREEN EXPIRATION 06/16/2024 23:59 Normal [facility] Comment on above: Order Comment: Speci men Type: BLOOD SPECIMENOrdering Facility: [facility] Address: [address] [place] [address] Performed By: #### T SCR ####[facility] BLOOD BANKCLIA [id number] [place] [id number] [place] XR CHEST 2V FRONTAL/LATon XR CHEST 2V FRONTAL/LAT Normal [facility] 36on 06-06-2024 36 Rx sent [facility] [address] Mckay bb office to call [place]. He was instructed by Dr Jackson to continue taking the antibiotic until he goes to [facility]. He have enough for 4 more days not enough till his 06/13 appt at the [facility] CNCOon 05-29-2024 CNCO Letter Text Normal [facility] CNPNon 05-29-2024 CNPN Normal [facility] Follow-Upon 05-19-2024 Follow-Up [id number] Judson Bolton 1955 M Date Provider Department Center 05/19/2024 Ada-QUYEN [facility]ACK[facility]ARD [facility] Family History Problem Relation Age of Onset Coronary artery disease Mother Coronary artery disease Father Family Status - Relation Status Age at Mother Father Level of Service:92576 [place] OFFICE/OUTPATIENT ESTABLISHED MOD MDM 30 MIN [facility] Follow-Upon 05-12-2024 Follow-Up [id number] Judson Bolton E 1955 M Date Provider Department Center 05/12/2024 QU[facility] CARD [facility] Family History Problem Relation Age of Onset Coronary artery disease Mother Coronary artery disease Father Family Status - Relation Status Age at Mother Father Level of Service:23642 [place] OFFICE/OUTPATIENT ESTABLISHED LOW MDM 20 MIN Normal [facility] ALL CBC WITH AUTO DIFFon BASOPHILS ABSOLUTE AUTO 0.1 [facility] Basophils/100 WBC (Bld) 0.7 % 0.2 - 2.0 % [facility] Eosinophils/100 WBC (Bld) 1.1 % 0.9 - 7.0 % [facility] Erythrocyte distribution width (RBC) [Ratio] 16.2 % High 11.0 - 15.0 % [facility] Hematocrit (Bld) [Volume fraction] 38.8 % Low 42.0 - 54.0 % [facility] Hemoglobin (Bld) [Mass/Vol] 12.3 g/dL Low 14.0 - 18.0 g/dL [facility] IMMATURE GRANULOCYTES ABS AUTO 0.03 [facility] Immature granulocytes/100 WBC (Bld) 0.3 % 0.0 - 0.5 % [facility] [facility] Interpretation and review of laboratory results Abnormal [facility] LYMPHOCYTES ABSOLUTE AUTO 0.7 Low [facility] Lymphocytes/100 WBC (Bld) 6.9 % Low 20.5 - 60.0 % [facility] MCH (RBC) [Entitic mass] 27.3 pg 25.9 - 34.0 pg [facility] MCHC (RBC) [Mass/Vol] 31.7 g/dL 29.9 - 35.2 g/dL [facility] MCV (RBC) [Entitic vol] 86.2 fL 80.0 - 94.0 fL [facility] MONOCYTES ABSOLUTE AUTO 0.7 [facility] Monocytes/100 WBC (Bld) 6.9 % 1.7 - 12.0 % [facility] NEUTROPHILS ABSOLUTE AUTO 7.9 High [facility] Neutrophils/100 WBC (Bld) 84.1 % High 43.0 - 75.0 % [facility] Platelet mean volume (Bld) [Entitic vol] 10.0 fL 9.5 - 13.5 fL [facility] TBH EO # 0.1 [facility] PLT [facility] RBC 4.50 Low [facility] TBH WBC 9.4 [facility] CLINISYNC [facility] Rad - Other Radiology Report on 08-09-2023 Rad - Other Radiology Report [id number]#1.00OTGTIFF [facility] Lab - Other Lab Resultson Lab - Other Lab Results [id number]#1.00OTGTIFF [facility] Patient Handouton 02-18-2023 Patient Handout [id number]#1.00OTGTIFF [facility] Patient Handouton 02-10-2023 Patient Handout [id number]#1.00OTGTIFF [facility] SYMPTOMATIC COVID-19 ANTIGEN on 02-24-2021 EUA Statement SEE BELOW Normal The [facility] [place] Comment on above: Result Comment: This test [...] sooner. Performed By: #### C VDAGS #### [facility] [place] [facility] [address] [place] [address] Kenji Nieto SARS-CoV-2 (COVID-19) RNA LISSY+probe Ql (Unsp spec) Positive Invalid Interpretation Code NEGATIVE [facility] [place] Comment on above: Performed By: #### C VDAGS #### [facility] [place] [facility] [address] [id number] Kenji Nieto Cardiovascular Lab Reporton 03-24-[address] [facility] MR #: [id number] of Physician: Quyen Jackson M.D.Medicine Service Date: 03/23/2018Division of Birthdate: 1955ardiology Room #: CCAdult CardiovascularServicesUniversit y StqwssnRovqnh[address] [place], [place] [address]Gtkac Fax Cardiovascular Laboratory ReportICD REPLACEMENT REPORTINDICATIONS FOR [...] 03/23/2018/02:45 P/Quyen Jackson M.D.Date Trans: 03/24/2018 07:31 A/Mirtha_JN:[id number]: Mark Tam D.O. [address] [facility] [address] Normal The [facility] *MRSA/MSSA CULTUREon 018 *MRSA/MSSA CULTURE Clinical Report: (D) Specimen: [id number] SWAB Collected: 03/17/2018 09:49 Status: Final Last Updated: 03/18/2018 14:21 ISO (Final) No Methicillin Resistant Staphylococcus aureus Isolated (MRSA) ISO (Final) Methicillin Sensitive Staphylococcus aureus (MSSA) Normal [facility] Comment on above: Performed By: #### 3 1302 ####[facility] BASIC METABOLIC PANELon 02-27 Calcium mass conc 9.1 mg/dL Normal 8.6-10.3 [facility] Comment on above: Performed By: #### 0 0071 ####[facility] [facility] [place] [address], [facility] Chloride molar conc 101 mmol/L Normal 98-107 [facility] Comment on above: Performed By: #### 0 0071 ####[facility] [facility].[place] [id number], [facility] CO2 molar conc 28 mmol/L Normal 21-31 [facility] Comment on above: Performed By: #### 0 0071 ####[facility] [place] [address], [facility] Creatinine mass conc 0.91 mg/dL Normal 0.70-1.30 [facility] Comment on above: Performed By: #### 0 0071 ####[facility] [place] [address], [facility] GFR/1.73 sq M predicted among blacks MDRD vol rate/area (S/P/Bld) mL/min/{1.73_m2} Normal >60 [facility] Comment on above: Performed By: #### 0 0071 ####[facility] [place] [address], [facility] GFR/1.73 sq M predicted among non-blacks MDRD vol rate/area (S/P/Bld) mL/min/{1.73_m2} Normal >60 [facility] Comment on above: Performed By: #### 0 0071 ####[facility] [facility] [place] [address], [facility] Glucose mass conc 186 mg/dL High 70-100 [facility] Comment on above: Performed By: #### 0 0071 ####[facility] [facility] [place] [address], [facility] Potassium molar conc 4.2 mmol/L Normal 3.5-5.1 [facility] Comment on above: Performed By: #### 0 0071 ####[facility] [place] [address], [facility] Sodium molar conc 134 mmol/L Low 136-145 [facility] Comment on above: Performed By: #### 0 0071 ####[facility] [place] [address], [facility] Urea nitrogen mass conc 15 mg/dL Normal 7-25 [facility] Comment on above: Performed By: #### 0 0071 ####[facility] CBC COMPLETE BLOOD COUNTon 0 03-17-2018 Erythrocyte distribution width Auto Ratio (RBC) 13.5 % Normal 11.5-15.0 [facility] Comment on above: Performed By: #### 5 0608 ####[facility] Hematocrit Auto Volume Fraction (Bld) 44.6 % Normal 39.0-50.0 [facility] Comment on above: Performed By: #### 5 0608 ####[address] Hemoglobin mass conc (Bld) 14.6 g/dL Normal 13.0-17.0 [facility] Comment on above: Performed By: #### 5 0608 ####[facility] MCH Auto Entitic mass (RBC) 28.8 pg Normal 27.0-33.0 [facility] Comment on above: Performed By: #### 5 0608 ####[facility] MCHC Auto mass conc (RBC) 32.7 g/dL Normal 32.0-35.0 [facility] Comment on above: Performed By: #### 5 0608 ####[facility] MCV Auto Entitic volume (RBC) 88.0 fL Normal 82.0-98.0 [facility] Comment on above: Performed By: #### 5 0608 ####[facility] Nucleated RBC/100 WBC Ratio (Bld) 0 % Normal 0-0 [facility] Comment on above: Performed By: #### 5 0608 ####[facility] [facility].[address] PLAT CNT 243 10*3/uL Normal 150-400 [facility] Comment on above: Performed By: #### 5 0608 ####[facility] [facility].[address] RBC Auto #/vol (Bld) 5.07 10*6/uL Normal 4.20-5.70 [facility] Comment on above: Performed By: #### 5 0608 ####[facility] [facility].[address] WBC Auto #/vol (Bld) 7.94 10*3/uL Normal 4.00-10.60 [facility] Comment on above: Performed By: #### 5 0608 ####[facility] Vital Signs Date Time Vital Sign Value Performing Clinician Facility 11-13-2024 11:44-0400 Body mass index (BMI) [Ratio] 27.91 kg/m2 Maame Thakkar HAIR OR BEAUTY SALON MANAGER Work Phone: [facility] 11-13-2024 11:44-0400 Body temperature 98.49 [degF] Maame Thakkar HAIR OR BEAUTY SALON MANAGER Work Phone: [facility] 11-13-2024 11:44-0400 Body weight 85.73 kg Maame Thakkar HAIR OR BEAUTY SALON MANAGER Work Phone: [facility] 11-13-2024 11:44-0400 Diastolic blood pressure 78 mm[Hg] Maame Thakkar N P Work Phone: [facility] 11-13-2024 11:44-0400 Heart rate 89 /min Maame Thakkar HAIR OR BEAUTY SALON MANAGER Work Phone: [facility] 11-13-2024 11:44-0400 SaO2% (BldA) [Mass fraction] 98 % Maame Ariane HAIR OR BEAUTY SALON MANAGER Work Phone: [facility] 11-13-2024 11:44-0400 Systolic blood pressure 98 mm[Hg] Maame Ariane HAIR OR BEAUTY SALON MANAGER Work Phone: [facility] 10-26-2024 11:04-0400 Body height 175.3 cm Pmh 1 [facility] 10-26-2024 11:04-0400 Body mass index (BMI) [Ratio] 27.32 kg/m2 Pmh 1 [facility] 10-26-2024 11:04-0400 Body weight 83.92 kg Pmh 1 [facility] 10-11-2024 11:23-0400 Body mass index (BMI) [Ratio] 27.43 kg/m2 Nusrat Santos PRODUCT MARKETING MANAGER-BOOK EDITOR Work Phone: [facility] 10-11-2024 11:23-0400 Body weight 86.73 kg Nusrat Santos PRODUCT MARKETING MANAGER-BOOK EDITOR Work Phone: [facility] 09-18-2024 13:42-0400 Body mass index (BMI) [Ratio] 27.64 kg/m2 Maame Ariane HAIR OR BEAUTY SALON MANAGER Work Phone: [facility] 09-18-2024 13:42-0400 Body temperature 98.49 [degF] Maame Ariane HAIR OR BEAUTY SALON MANAGER Work Phone: [facility] 09-18-2024 13:42-0400 Body weight 84.91 kg Maame Ariane HAIR OR BEAUTY SALON MANAGER Work Phone: [facility] 09-18-2024 13:42-0400 Diastolic blood pressure 70 mm[Hg] Maame Thakkar N P Work Phone: [facility] 09-18-2024 13:42-0400 Heart rate 90 /min Maame Thakkar HAIR OR BEAUTY SALON MANAGER Work Phone: [facility] 09-18-2024 13:42-0400 Respiratory rate 18 /min Maame Ariane HAIR OR BEAUTY SALON MANAGER Work Phone: [facility] 09-18-2024 13:42-0400 SaO2% (BldA) [Mass fraction] 98 % Maame Ariane HAIR OR BEAUTY SALON MANAGER Work Phone: [facility] 09-18-2024 13:42-0400 Systolic blood pressure 104 mm[Hg] Maame Ariane HAIR OR BEAUTY SALON MANAGER Work Phone: [facility] 06-19-2024 11:17-0500 SaO2% (BldA) [Mass fraction] 97 % LAKESHA JARRETT [facility] Comment on above: Order Comment: Specimen Type: ARTERIAL B LOOD SPECIMENOrdering Facility: [facility] Address: [address] [place] [address] Performed By: #### A LLMG ####[facility] LAB[facility] [id number] [address] [place] 06-19-2024 08:50-0500 SaO2% (BldA) [Mass fraction] 98 % LAKESHA JARRETT [facility] Comment on above: Order Comment: Specimen Type: ARTERIAL B LOOD SPECIMENOrdering Facility: [facility] Address: [address] [place] [address] Performed By: #### A LLMG ####[facility] LAB[facility] [id number] [address] OF [place] 08-09-2023 16:54-0500 Body height 176.8 cm Shaikh Lily BARRAGAN Work Phone: [facility] 08-09-2023 16:54-0500 Body mass index (BMI) [Ratio] 26.13 kg/m2 Shaikh Lily BARRAGAN Work Phone: [facility] 08-09-2023 16:54-0500 Body weight 81.65 kg Shaikh Lily BARRAGAN Work Phone: [facility] 08-09-2023 16:54-0500 Diastolic blood pressure 60 mm[Hg] Shaikh Lily Sy Work Phone: [facility] 08-09-2023 16:54-0500 Heart rate 68 /min Shaikh Lily BARRAGAN Work Phone: [facility] 08-09-2023 16:54-0500 SaO2% (BldA) [Mass fraction] 98 % Shaikh Lily BARRAGAN Work Phone: [facility] 08-09-2023 16:54-0500 Systolic blood pressure 80 mm[Hg] Shaikh Lily BARRAGAN Work Phone: [facility] Healthcare Encounters Encounter Date Encounter Type Care Provider Facility Start: 03-30-2025 End: 03-30-2025 ambulatory [facility] Start: 03-14-2025 End: 03-14-[address] [facility] Start: 03-07-2025 ambulatory [facility] Start: 02-27-2025 End: 02-27-[address] [facility] Start: 11-23-2024 End: 11-23-2024 ambulatory LAKESHA JARRETT Facility:[facility] Start: 11-23-2024 End: 11-23-2024 Subsequent hospital visit by physician [facility] Work Phone: Cardiology Comment on above: Pacemaker reprogramm ing/check [Z45.018] Start: 11-13-2024 End: 11-13-2024 Bamboo flowsheet Maame Thakkar HAIR OR BEAUTY SALON MANAGER Work Phone: [facility] Start: 11-13-2024 End: 11-13-2024 Bamboo flowsheet Maame Thakkar HAIR OR BEAUTY SALON MANAGER Work Phone: [facility] Start: 11-13-2024 End: 11-13-2024 Office outpatient visit 15 minutes Maame Thakkar HAIR OR BEAUTY SALON MANAGER Work Phone: [facility] Comment on above: 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) (Primary Dx); Essential hypertension (CMS/HCC); Subacute maxillary sinusitis; Environmental and seasonal allergies Start: 11-13-2024 End: 11-13-2024 ambulatory MAAME ARIANE Not Available Start: 11-02-2024 End: 11-02-2024 Evaluation and management of inpatient NELLY MUNIZ [facility] Start: 10-30-2024 ambulatory [facility] Start: 10-26-2024 End: 10-26-2024 ambulatory [facility] Pat Phone Call Provider 1 [facility] - Pre Admit Start: 10-26-2024 End: 10-26-2024 ambulatory MAAME Hernandez CLINTONTHAI [facility] Start: 10-17-2024 End: 10-25-2024 Telephone encounter Rhonda Owen [facility] General Surgery Start: 10-11-2024 End: 10-11-2024 Office outpatient new 30 minutes Nusrat Santos APRN-BOOK EDITOR Work Phone: [facility] Comment on above: Positive colorectal cancer screening using Cologuard test (Primary Dx) Start: 10-11-2024 End: 10-11-2024 ambulatory [facility] Start: 10-09-2024 End: 10-09-2024 ambulatory [facility] Start: 09-25-2024 End: 09-25-2024 Telephone encounter Nusrat Santos PRODUCT MARKETING MANAGER-BOOK EDITOR Work Phone: [facility] Start: 09-18-2024 End: 09-18-2024 Bamboo flowsheet Maame Thakkar HAIR OR BEAUTY SALON MANAGER Work Phone: [facility] Start: 09-18-2024 End: 09-18-2024 Bamboo flowsheet Maame Ariane HAIR OR BEAUTY SALON MANAGER Work Phone: [facility] Start: 09-18-2024 End: 09-18-2024 Office outpatient visit 25 minutes Maame Thakkar HAIR OR BEAUTY SALON MANAGER Work Phone: [facility] Comment on above: Right leg pain (Prim samira Dx); Paroxysmal atrial fibrillation (CMS/HCC); Other ventricular tachycardia (CMS/HCC); Phantom limb syndrome with pain (CMS/HCC); 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); Coronary artery disease involving [place] coronary artery of [place] heart without angina pectoris (CMS/HCC); HFrEF (heart [...] MAAME THAKKAR Not Available Start: 09-07-2024 ambulatory [facility] Start: 09-04-2024 End: 09-04-2024 ambulatory Prateek Howell MD Work Phone: Infectious Disease Comment on above: ICD (implantable car dioverter-defibrillator) infection, initial encounter (HCC) (Primary Dx) Start: 09-04-2024 End: 09-04-2024 Telemedicine consultation with patient Prateek Howell MD Work Phone: Infectious Disease Start: 08-31-2024 ambulatory QUYEN [facility] Start: 07-31-2024 End: 07-31-2024 Telephone encounter Prateek Howell MD Work Phone: Infectious Disease Comment on above: Appointment Start: 07-31-2024 End: 07-31-2024 ambulatory Prateek Howell MD Work Phone: Infectious Disease Comment on above: ICD (implantable car dioverter-defibrillator) infection, initial encounter (HCC) (Primary Dx) Start: 07-31-2024 End: 07-31-2024 Telemedicine consultation with patient Prateek Howell MD Work Phone: Infectious Disease Start: 07-26-2024 ambulatory LAKESHA Rasmussen y:[facility] Start: 07-26-2024 End: 07-26-2024 Subsequent hospital [...] Cardiology Comment on above: Received Outside Med [facility] Records (Labs [facility]) Start: 06-29-2024 End: 06-29-2024 Patient Outreach Lui Alberto [facility] Work Phone: Pharmacy Comment on above: Transition Of Care ( TCM Pharmacy-Hospital discharge 06/27/24 ) Start: 06-27-2024 End: 06-27-2024 Emergency department patient visit UNKNOWN PROVIDER Facility:[facility] Start: 06-26-2024 End: 06-26-2024 Evaluation and management of inpatient [facility] Work Phone: Cardiology Start: 06-23-2024 End: 06-23-2024 Evaluation and management of inpatient EDUARDO HOLLAND Facility:[facility] Start: 06-22-2024 End: 06-22-2024 ambulatory Eric Alarcon [facility] Infectious Disease Start: 06-22-2024 End: 06-22-2024 Follow-up encounter Eric Alarcon [facility] Infectious Disease Comment on above: Medication Follow-up (Dalbavancin) Persistent atrial fi brillation (HCC) (Primary Dx) Start: 06-20-2024 End: 06-20-2024 ambulatory Nusrat Irby MD Work Phone: Infectious Disease Comment on above: CoPat Start Start: 06-16-2024 End: 06-16-2024 Evaluation and management of inpatient SHADY NAKHLA Facility:[facility] Start: 06-16-2024 End: 06-16-2024 Evaluation and management of inpatient UNKNOWN PROVIDER Facility:[facility] Start: 06-15-2024 End: 06-15-2024 Evaluation and management of inpatient UNKNOWN PROVIDER Facility:[facility] Start: 06-14-2024 End: 06-14-2024 Evaluation and management of inpatient [facility] Work Phone: Cardiology Start: 06-13-2024 End: 06-27-2024 Evaluation and management of inpatient LAKESHA JARRETT Facility:[facility] Start: 06-13-2024 End: 06-13-2024 Subsequent hospital visit by physician [facility] Work Phone: Cardiology Comment on above: Pacemaker reprogramm ing/check [Z45.018] Start: 06-13-2024 End: 06-13-2024 Patient encounter procedure Lakesha Jarrett MD Work Phone: Cardiology Comment on above: Cardiac resynchroniz ation therapy defibrillator ([employer] RADIO OPERATOR-D) in place (Primary Dx); Infection of biventricular implantable cardioverter-defibrillator (ICD), initial encounter (HCC); HFrEF (heart failure with reduced ejection fraction) (HCC); Cardiomyopathy, ischemic; Infection involving implantable cardioverter-defibrillator (ICD), initial encounter (HCC) Start: 06-13-2024 End: 06-13-2024 ambulatory UNKNOWN PROVIDER Facility:[facility] Start: 05-29-2024 End: 05-29-2024 Telephone encounter Lakesha Jarrett MD Work Phone: Cardiology Comment on above: Patient Update (From Dr. Darnell- Records are in Care Everywhere) Start: 05-19-2024 ambulatory QUYEN [facility] Start: 05-12-2024 ambulatory [facility] Start: 04-21-2024 End: 04-21-2024 ambulatory [facility] Start: 02-03-2024 End: 02-03-2024 ambulatory LANA KAY Not Available Start: 11-26-2023 End: 11-27-2023 ambulatory MARLYS Bernal [facility] Start: 11-25-2023 End: 11-27-2023 ambulatory MARLYS Bernal [facility] Start: 11-23-2023 End: 11-27-2023 ambulatory MARLYS Bernal [facility] Start: 11-18-2023 End: 11-27-2023 ambulatory MARLYS Bernal [facility] Comment on above: Arrived Start: 11-16-2023 End: 11-27-2023 ambulatory MARLYS Bernal [facility] Comment on above: Arrived Start: 11-12-2023 End: 11-27-2023 ambulatory MARLYS Bernal [facility] Comment on above: Arrived Start: 11-11-2023 End: 11-27-2023 ambulatory MARLYS Bernal [facility] Comment on above: Arrived Start: 11-09-2023 End: 11-27-2023 ambulatory MARLYS A [facility] Start: 11-05-2023 End: 11-06-2023 ambulatory MARK Baird [facility] Start: 11-05-2023 End: 11-27-2023 ambulatory MARLYS A [facility] Comment on above: Arrived Start: 11-04-2023 End: 11-27-2023 ambulatory MARLYS A [facility] Start: 11-02-2023 End: 11-27-2023 ambulatory MARLYS A [facility] Comment on above: Arrived Start: 11-01-2023 Patient encounter procedure Yadi Thakkar HAIR OR BEAUTY SALON MANAGER Work Phone: [facility] Start: 10-29-2023 End: 11-27-2023 ambulatory [facility] Start: 10-28-2023 End: 11-27-2023 ambulatory [facility] Comment on above: Arrived Start: 10-26-2023 End: 10-27-2023 ambulatory [facility] Start: 10-22-2023 End: 10-27-2023 ambulatory [facility] Start: 10-21-2023 End: 10-27-2023 ambulatory [facility] Start: 10-19-2023 End: 10-27-2023 ambulatory [facility] Start: 10-14-2023 End: 10-27-2023 ambulatory [facility] Comment on above: Acute myocardial inf arction, subendocardial infarction, initial episode of care ([facility]-H[facility]) Start: 10-12-2023 End: 10-27-[address] [facility] Comment on above: Arrived Start: 10-08-2023 End: 10-27-[address] [facility] Comment on above: Arrived Start: 10-07-2023 End: 10-27-[address] [facility] Comment on above: Arrived Start: 10-05-2023 End: 10-27-[address] [facility] Comment on above: Arrived Start: 10-01-2023 End: 10-27-[address] [facility] Comment on above: Acute myocardial inf arction, subendocardial infarction, initial episode of care (CMS-HCC) Start: 09-30-2023 End: 10-27-[address] [facility] Comment on above: Acute myocardial inf arction, subendocardial infarction, initial episode of care (CMS-HCC) Start: 09-28-2023 End: 10-27-[address] [facility] Comment on above: Arrived Start: 09-24-2023 End: 09-27-[address] [facility] Comment on above: Acute myocardial inf arction, subendocardial infarction, initial episode of care (CMS-HCC) Start: 09-23-2023 End: 09-27-2023 ambulatory MARK [facility] Start: 09-21-2023 End: 09-27-[address] [facility] Comment on above: Acute myocardial inf arction, subendocardial infarction, initial episode of care (CMS-HCC) Start: 09-17-2023 End: 09-27-2023 ambulatory [facility] Comment on above: Acute myocardial inf arction, subendocardial infarction, initial episode of care ([facility]) Start: 09-16-2023 End: 09-27-2023 ambulatory [facility] Start: 09-14-2023 End: 09-27-2023 ambulatory [facility] Comment on above: Acute myocardial inf arction, subendocardial infarction, initial episode of care ([facility]) Start: 09-10-2023 End: 09-27-2023 ambulatory [facility] Comment on above: Acute myocardial inf arction, subendocardial infarction, initial episode of care ([facility]) Start: 09-09-2023 End: 09-27-2023 ambulatory [facility] Comment on above: Arrived Start: 09-07-2023 End: 09-27-2023 ambulatory [facility] Comment on above: Arrived Start: 09-03-2023 End: 09-27-2023 ambulatory [facility] Comment on above: Acute myocardial inf arction, subendocardial infarction, initial episode of care ([facility]) Start: 09-02-2023 End: 09-27-2023 ambulatory MARK P [facility] Start: 08-31-2023 End: 09-27-2023 ambulatory MARK P [facility] Start: 08-27-2023 End: 09-27-2023 ambulatory MARK P [place] [facility] Start: 08-26-2023 End: 08-27-2023 ambulatory MARK P [facility] Start: 08-24-2023 End: 08-27-2023 ambulatory MARK P [facility] Start: 08-20-2023 End: 08-27-2023 ambulatory MARK P [facility] Start: 08-19-2023 End: 08-27-2023 ambulatory MARK P [facility] Start: 08-17-2023 End: 08-27-2023 ambulatory [facility] Start: 08-16-2023 End: 08-17-2023 ambulatory MARK P SEAL COVE Facility:[facility] Start: 08-13-2023 End: 08-27-2023 ambulatory [facility] Start: 08-12-2023 End: 08-27-2023 ambulatory [facility] Start: 08-10-2023 Clinisync Result Encounter Aiden Bautista MD Work Phone: [facility] External Department Unsolicited Start: 08-10-2023 Clinisync Result Encounter Aiden Bautista MD Work Phone: [facility] External Department Unsolicited Start: 08-10-2023 End: 08-27-2023 ambulatory [facility] Start: 08-09-2023 End: 08-09-2023 Office outpatient new 60 minutes Shaikh Lily BARRAGAN Work Phone: [facility] Comment on above: Essential hypertensi on (CMS/HCC) (Primary Dx); HFrEF (heart failure with reduced ejection fraction) (CMS/HCC); Coronary artery disease involving [place] coronary artery of [place] heart without angina pectoris (CMS/HCC); Hyperlipidemia, unspecified [...] [facility] Start: 08-06-2023 End: 08-27-2023 ambulatory [facility] Start: 08-05-2023 End: 08-27-2023 ambulatory [facility] Start: 08-03-2023 End: 08-27-2023 ambulatory MARK P [facility] Start: 07-30-2023 End: 08-27-2023 ambulatory MARK P [facility] Start: 07-29-2023 End: 08-27-2023 ambulatory MARK P [facility] Start: 07-27-2023 End: 07-29-2023 ambulatory MARK P [facility] Comment on above: Acute myocardial inf arction, subendocardial infarction, initial episode of care ([facility]) Start: 07-23-2023 End: 07-29-2023 ambulatory [facility] Comment on above: Acute myocardial inf arction, subendocardial infarction, initial episode of care ([facility]) Start: 07-22-2023 End: 07-29-2023 ambulatory MARK P HOUSE [facility] Comment on above: Arrived Start: 07-19-2023 End: 07-29-2023 ambulatory Zeeshan Carmichael MD Facility:[facility] Start: 07-16-2023 End: 07-29-2023 ambulatory MARK TAM [facility] Start: 07-15-2023 End: 07-29-2023 ambulatory MARK P YONATAN [facility] Comment on above: Acute myocardial inf arction, subendocardial infarction, initial episode of care ([facility]) Start: 07-13-2023 End: 07-29-2023 ambulatory MARK P [facility] Comment on above: Acute myocardial inf arction, subendocardial infarction, initial episode of care ([facility]) Start: 07-09-2023 End: 07-29-2023 ambulatory MARK TAM [facility] Start: 07-08-2023 End: 07-29-2023 ambulatory MARK P HOU[facility] Comment on above: Arrived Start: 06-01-2023 End: 06-02-2023 ambulatory Zeeshan Carmichael MD Facility:[facility] Start: 05-27-2023 End: 05-28-2023 ambulatory MARK P YONATAN Facility:[facility] Start: 05-10-2023 End: 05-11-2023 ambulatory MARK P HOUSE Facility:[facility] Start: 03-11-2023 End: 03-12-2023 ambulatory MARK P HOUSE Facility:[facility] Start: 02-11-2023 End: 02-12-2023 ambulatory MARK P HOUSE Facility:[facility] Start: 02-24-2021 End: 02-24-2021 ambulatory CARSON ISA ASHLEY Facility: Start: 03-23-2018 End: 03-24-2018 Patient encounter QUYEN HOGUEUBB Facility:[facility] Procedures Date Procedure Procedure Detail Performing Clinician Start: 11-23-2024 Prgrmg dev eval impl antable subq lead dfb system [facility] [place] Provider Start: 11-02-2024 Colonoscopy Maame dowell HAIR OR BEAUTY SALON MANAGER Work Phone: Start: 09-18-2024 Hemoglobin glycosylated a1c Maame Thakkar HAIR OR BEAUTY SALON MANAGER Work Phone: Start: 07-26-2024 Prgrmg dev eval impl antable subq lead dfb system [facility] [place] Provider Start: 06-26-2024 Prgrmg dev eval impl antable subq lead dfb system Christopher Fay MD Work Phone: Start: 06-22-2024 History of coronary artery bypass grafting Hx of CABG Lakesha Jarrett MD Work Phone: Start: 06-22-2024 Antibody screen MAURA JARRETT Comment on above: Order Comment: Speci men Type: BLOOD SPECIMENOrdering Facility: [facility] Address: [address] [place] [address] Performed By: #### T SCR ####CC MAIN BLOOD BANKCLIA [id number] [address] [place] Start: 06-18-2024 Antibody screen MAURA JARRETT Comment on above: Order Comment: Speci men Type: BLOOD SPECIMENOrdering Facility: [facility] Address: [address] [place] [address] Performed By: #### T SCR ####CC MAIN BLOOD BANKCLIA [id number] Start: 06-14-2024 Echocardiography KIRSTIE MARLA ADKINSCAROL Start: 06-13-2024 Antibody screen MAURA JARRETT Comment on above: Order Comment: Speci men Type: BLOOD SPECIMENOrdering Facility: [facility] Address: [address] [place] [address] Performed By: #### T SCR ####CC MAIN BLOOD BANKCLIA [id number] [address] Start: 06-13-2024 Prgrmg dev eval impl antable subq lead dfb system [facility] [place] Provider Start: 08-10-2023 ALL CBC WITH AUTO DIFF Shaikh Lily BARRAGAN Work Phone: Start: 06-05-2023 Lipid 1996 panel - S eva or Plasma Lakesha Jarrett MD Work Phone: Plan of Treatment Date Care Activity Detail Author Start: 11-02-2034 Screening for malignant neoplasm of colon [facility] Start: 2030 RSV Vaccine (1 - 1-dose 75+ series) RSV Vaccine (1 - 1-dose 75+ series) [facility] Start: 06-05-2028 Lipid panel Lipid Screening [facility] Start: 11-10-2026 Screening for malignant neoplasm of colon [facility] Start: 08-21-2026 Diabetes Screening Diabetes Screening [facility] Start: 04-04-2026 Glaucoma screening Diabetes: Retinopathy Screening [facility] Start: 11-02-2025 Screening for malignant neoplasm of colon [facility] Start: 10-26-2025 Adult BMI Screening Adult BMI Screening [facility] Start: 10-26-2025 Tobacco Screening Tobacco Screening [facility] Start: 10-11-2025 Adult BMI Screening Adult BMI Screening [facility] Start: 10-11-2025 Tobacco Screening Tobacco Screening [facility] Start: 08-24-2025 Urine screening for protein Diabetes: Urine Protein Screening [facility] Start: 02-26-2025 Influenza vaccination [facility] Start: 12-20-2024 End: 12-20-2024 Patient encounter procedure 12/20/2024 10:00 AM EDT Office Visit [facility] [address] [place] [address] Maame Thakkar NP [address] [place] [address] [facility] Start: 12-19-2024 Hemoglobin A1c measurement [facility] Start: 11-23-2024 End: 11-23-2024 Patient encounter procedure 11/23/2024 12:30 PM EDT Office Visit Cardiology [address] [id number] Tatyana Guillory, PRODUCT MARKETING MANAGER.BOOK EDITOR [address] [place] [address] [facility] Cardiology Comment on above: AFIB Start: 11-23-2024 End: 11-23-2024 ambulatory 11/23/2024 10:30 AM EDT Results Only Cardiology [address] [id number] [facility] Cardiology Comment on above: AFIB Start: 11-23-2024 End: 11-23-2024 Patient encounter procedure Cardiology Comment on above: DEVICE CHECK [facility] Start: 11-13-2024 End: 11-13-2024 Patient encounter procedure 11/13/2024 11:45 AM EDT Office Visit [facility] [address] [place] [address] Maame Thakkar NP [address] [place] [phone] 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) (Primary Dx); Essential hypertension (CMS/HCC) [facility] Comment on above: 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) (Primary Dx); Essential hypertension (CMS/HCC) Start: 11-02-2024 End: 11-02-2024 Admission to same day surgery center 11/02/2024 11:30 AM EDT - 11/02/2024 12:00 PM EDT Surgery [facility] [address] [place] [address] Nelly Muniz, DO [address] [place], [place] [phone] COLONOSCOPY DIAGNOSTIC / SCREENING [23213 (CPT )] [facility] Comment on above: COLONOSCOPY DIAGNOSTIC / SCREENING [4537 8 (CPT )] Start: 11-02-2024 End: 11-02-2024 Colonoscopy flx dx w/collj spec when pfrmd COLONOSCOPY DIAGNOSTIC / SCREENING positive cologuard 11/02/2024 11:30 AM EDT [facility] Start: 11-02-2024 Subsequent hospital visit by physician 11/02/2024 11:30 AM EDT Hospital Encounter [facility] [address] [place] [phone] Nelly Muniz, [address] [place] [address] [facility] Start: 10-31-2024 Medicare Annual Wellness (AWV) Medicare Annual Wellness (AWV) [facility] Start: 10-26-2024 End: 10-26-2024 ambulatory 10/26/2024 2:40 PM EDT Support Visit [facility] - Pre Admit [address] [place] [address] [facility] - Pre Admit Start: 09-18-2024 End: 09-18-2024 Patient encounter procedure 09/18/2024 1:40 PM EDT [facility] Visit [facility] [address] [place] [address] Maame Thakkar, PUSHPA [address] [place] [address] Coronary artery disease involving [place] coronary artery of [place] heart without angina pectoris (CMS/HCC) (Primary Dx); [...] use of insulin (CMS/HCC); Prostate cancer screening [facility] Comment on above: Coronary artery disease involving [place] coronary artery of [place] heart without angina pectoris (CMS/HCC) (Primary Dx); [...] cancer screening Start: 09-11-2024 Hemoglobin A1c measurement [facility] Start: 09-04-2024 End: 09-04-2024 Telephone encounter 09/04/2024 9:00 AM [facility] Infectious Disease [address] [phone] Prateek Howell MD [address] [place] [address] Virtual visit/telephone call. Infectious Disease Comment on above: Virtual visit/telephone call. Start: 08-03-2024 End: 08-03-2024 Patient encounter procedure Cardiology Comment on above: OUTPATIENT 4-6 WEEK DEVICE CHECK ICD hospital follow up Start: 07-31-2024 End: 07-31-2024 ambulatory Infectious Disease Comment on above: hospital f/u est transplant Start: 07-26-2024 End: 07-26-2024 Patient encounter procedure 07/26/2024 11:15 AM EST Appointment Cardiology [address] [place] [address] OUTPATIENT 4-6 WEEK DEVICE CHECK ICD Cardiology Comment on above: OUTPATIENT 4-6 WEEK DEVICE CHECK ICD Start: 07-14-2024 End: 07-14-2024 Patient encounter procedure 07/14/2024 10:00 AM EST Office Visit Infectious Disease [address] [id number] Sam King MD [address] [place] [address] hospital follow up Infectious Disease Comment on above: hospital follow up Start: 06-28-2024 Advance Directive Discussion Advance Directive Discussion [facility] Start: 06-22-2024 End: 06-22-2024 Insj eltrd car haroon sys tm insj dfb/pm pls gen INSERTION CORONARY SINUS/LT VENTRICULAR LEAD W/INITIAL INSERTION OF PACEMAKER/DEFIB GENERATOR Ischemic cardiomyopathy Chronic systolic CHF (congestive heart failure) (HCC) NSVT (nonsustained ventricular tachycardia) (HCC) Persistent atrial fibrillation (HCC) 06/22/2024 11:50 AM EST EP LAB Start: 06-22-2024 End: 06-22-2024 Insj/rplcmt perm dfb w/trnsvns lds 1/dual chmbr INSERTION PERM IMPLANTABLE DEFIBRILLATOR SYSTEM, W/TRANSVENOUS LEAD(S) Ischemic cardiomyopathy Chronic systolic CHF (congestive heart failure) (HCC) NSVT (nonsustained ventricular tachycardia) (HCC) Persistent atrial fibrillation (HCC) 06/22/2024 11:50 AM EST [facility] EP [facility] Start: 06-19-2024 End: 06-19-2024 Anesthesia consultation 06/19/2024 6:30 AM EST Anesthesia Event Admitting [address] [place] [address] Carlton García MD [address] [place] [address] Admitting Start: 06-19-2024 End: 06-19-2024 Evaluation and management of inpatient 06/19/2024 6:30 AM EST - 06/19/2024 12:36 PM EST Surgery Admitting [address] [place] [address] Lui Cooper MD [address] [place] [address] REMOVAL OF IMPLANTABLE DEFIBRILLATOR PULSE GENERATOR ONLY Admitting Comment on above: REMOVAL OF IMPLANTABLE DEFIBRILLATOR PUL SE GENERATOR ONLY Start: 06-19-2024 End: 06-19-2024 Removal implantable defib pulse generator only REMOVAL OF IMPLANTABLE DEFIBRILLATOR PULSE GENERATOR ONLY Infection and inflammatory reaction due to cardiac device, implant, and graft, initial encounter ([facility]) Ischemic cardiomyopathy Chronic systolic CHF (congestive heart failure) ([facility]) 06/19/2024 6:30 AM EST [facility] Start: 06-19-2024 End: 06-19-2024 Rmvl1/dual chmbr impltbl dfb eltrd transvns xtrj REMOVAL ELECTRODE(S) IMPLANTABLE DEFIBRILLATOR TRANSVENOUS EXTRACTION Infection and inflammatory reaction due to cardiac device, implant, and graft, initial encounter ([facility]) Ischemic cardiomyopathy Chronic systolic CHF (congestive heart failure) ([facility]) 06/19/2024 6:30 AM EST [facility] Start: 06-15-2024 End: 06-15-2024 Cath plmt l hrt & arts w/njx & angio img s&i CORONARY ANGIO W CATH PLACE W IMAGE INJECT & INTERP W LT HEART CATH W INJECT LT VENTRGRAPHY Pre-op evaluation 06/15/2024 10:35 PM EST RIDES ATTENDANT Start: 06-15-2024 End: 06-15-2024 ambulatory 06/15/2024 7:30 AM EST Procedure Cardiology [address] [place] [address] Jose Alfredo Jack DO [address] [place] [address] [id number] Cardiology Comment on above: [id number] Start: 06-13-2024 End: 06-13-2024 Patient encounter procedure 06/13/2024 2:15 PM EST Appointment Cardiology [address] [place] [address] DX:AFIB Cardiology Comment on above: DX:AFIB Start: 06-13-2024 End: 06-13-2024 ambulatory 06/13/2024 12:00 PM EST Results Only Cardiology [address] [place] [address] DX:AFIB Cardiology Comment on above: DX:AFIB Start: 06-13-2024 End: 06-13-2024 Patient encounter procedure Cardiology Comment on above: DX:AFIB Start: 06-05-2024 Hepatitis B surface antibody level LDL Cholesterol [facility] Start: 06-04-2024 Adult BMI Screening Adult BMI Screening [facility] Start: 06-04-2024 Tobacco Screening Tobacco Screening [facility] Start: 02-27-2024 Covid-19 Vaccine ( season) Covid-19 Vaccine () [facility] Start: 02-27-2024 Influenza vaccination [facility] Start: 11-26-2023 End: 11-26-2023 Clinical Support 11/26/2023 9:00 AM EDT Clinical Support [facility] [address] [place] [phone] [facility] Start: 11-25-2023 End: 11-25-2023 Clinical Support 11/25/2023 9:00 AM EDT Clinical Support [facility] [address] [place] [phone] [facility] Start: 11-23-2023 End: 11-23-2023 Clinical Support 11/23/2023 9:00 AM EDT Clinical Support [facility] [address] [place] [phone] [facility] Start: 11-19-2023 End: 11-19-2023 Clinical Support 11/19/2023 9:00 AM EDT Clinical Support [facility] [address] [place] [address] [place] [address] [facility] Start: 11-18-2023 End: 11-18-2023 Clinical Support 11/18/2023 9:00 AM EDT Clinical Support [facility] [address] [facility] [place] [address] [facility] Start: 11-16-2023 End: 11-16-2023 Clinical Support 11/16/2023 9:00 AM EDT Clinical Support [facility] [address] [facility] [place] [address] [facility] Start: 11-12-2023 End: 11-12-2023 Clinical Support 11/12/2023 9:00 AM EDT Clinical Support [facility] [address] [facility] [place] [address] [facility] Start: 11-11-2023 End: 11-11-2023 Clinical Support 11/11/2023 9:00 AM EDT Clinical Support [facility] [address] [facility] [place] [address] [facility] Start: 11-09-2023 End: 11-09-2023 Clinical Support 11/09/2023 9:00 AM EDT Clinical Support [facility] [address] [facility] [place] [address] [facility] Start: 11-05-2023 End: 11-05-2023 Clinical Support 11/05/2023 9:00 AM EDT Clinical Support [facility] [address] [facility] [place] [address] [facility] Start: 11-04-2023 End: 11-04-2023 Clinical Support 11/04/2023 9:00 AM EDT Clinical Support [facility] [address] [facility] [place] [address] [facility] Start: 11-02-2023 End: 11-02-2023 Clinical Support 11/02/2023 9:00 AM EDT Clinical Support [facility] [address] [facility] [place] [address] [facility] Start: 10-28-2023 End: 10-28-2023 Clinical Support 10/28/2023 9:00 AM EDT Clinical Support [facility] [address] [facility] [place] [address] [facility] Start: 10-26-2023 End: 10-26-2023 Clinical Support 10/26/2023 8:00 AM EDT Clinical Support [facility] [address] [facility] [place] [address] [facility] Start: 10-22-2023 End: 10-22-2023 Clinical Support 10/22/2023 8:00 AM EDT Clinical Support [facility] [address] [facility] [place] [address] [facility] Start: 10-21-2023 End: 10-21-2023 Clinical Support 10/21/2023 8:00 AM EDT Clinical Support [facility] [address] [facility] [place] [address] [facility] Start: 10-19-2023 End: 10-19-2023 Clinical Support 10/19/2023 8:00 AM EDT Clinical Support [facility] [address] [facility] [place] [address] [facility] Start: 10-14-2023 End: 10-14-2023 Clinical Support 10/14/2023 8:00 AM EDT Clinical Support [facility] [address] [facility] [place] [address] [facility] Start: 10-12-2023 End: 10-12-2023 Clinical Support 10/12/2023 8:00 AM EDT Clinical Support [facility] [address] [facility] [place] [address] [facility] Start: 10-08-2023 End: 10-08-2023 Clinical Support 10/08/2023 8:00 AM EDT Clinical Support [facility] [address] [place] [address], [place] [address] [facility] Start: 10-07-2023 End: 10-07-2023 Clinical Support 10/07/2023 8:00 AM EDT Clinical Support [facility] [address] [facility] [place] [address] [facility] Start: 10-05-2023 End: 10-05-2023 Clinical Support 10/05/2023 8:00 AM EDT Clinical Support [facility] [address] [place] [address], [place] [address] [facility] Start: 10-01-2023 End: 10-01-2023 Clinical Support 10/01/2023 8:00 AM EDT Clinical Support [facility] [address] [place] [address], [place] [address] [facility] Start: 09-30-2023 End: 09-30-2023 Clinical Support 09/30/2023 8:00 AM EDT Clinical Support [facility] [address] [place] [address], [place] [address] [facility] Start: 09-28-2023 End: 09-28-2023 Clinical Support 09/28/2023 8:00 AM EDT Clinical Support [facility] [address] [facility] [place] [address] [facility] Start: 09-24-2023 End: 09-24-2023 Clinical Support 09/24/2023 8:00 AM EDT Clinical Support [facility] [address] [facility] [place] [address] [facility] Start: 09-23-2023 End: 09-23-2023 Clinical Support 09/23/2023 8:00 AM EDT Clinical Support [facility] [address] [facility] [place] [address] [facility] Start: 09-21-2023 End: 09-21-2023 Clinical Support 09/21/2023 8:00 AM EDT Clinical Support [facility] [address] [facility] [place] [address] [facility] Start: 09-17-2023 End: 09-17-2023 Clinical Support 09/17/2023 8:00 AM EDT Clinical Support [facility] [address] [facility] [place] [address] [facility] Start: 09-16-2023 End: 09-16-2023 Clinical Support 09/16/2023 8:00 AM EDT Clinical Support [facility] [address] [place] [address], [place] [address] [facility] Start: 09-14-2023 End: 09-14-2023 Clinical Support 09/14/2023 8:00 AM EDT Clinical Support [facility] [address] [place] [address], [place] [address] [facility] Start: 09-10-2023 End: 09-10-2023 Clinical Support 09/10/2023 8:00 AM EDT Clinical Support [facility] [address] [place] [phone] [facility] Start: 09-09-2023 End: 09-09-2023 Clinical Support 09/09/2023 8:00 AM EDT Clinical Support [facility] [address] [place] [address], [place] [address] [facility] Start: 09-07-2023 End: 09-07-2023 Patient encounter procedure [facility] Start: 09-03-2023 End: 09-03-2023 Clinical Support 09/03/2023 8:00 AM EST Clinical Support [facility] [address] [place] [phone] [facility] Start: 09-02-2023 End: 09-02-2023 Clinical Support 09/02/2023 8:00 AM EST Clinical Support [facility] [address] [place] [phone] [facility] Start: 08-31-2023 End: 08-31-2023 Clinical Support 08/31/2023 8:00 AM EST Clinical Support [facility] [address] [place] [phone] [facility] Start: 08-27-2023 End: 08-27-2023 Clinical Support 08/27/2023 8:00 AM EST Clinical Support [facility] [address] [place] [phone] [facility] Start: 08-26-2023 End: 08-26-2023 Clinical Support 08/26/2023 8:00 AM EST Clinical Support [facility] [address] [place] [address], [place] [address] [facility] Start: 08-24-2023 End: 08-24-2023 Clinical Support 08/24/2023 8:00 AM EST Clinical Support [facility] [address] [place] [address], [place] [address] [facility] Start: 08-20-2023 End: 08-20-2023 Clinical Support 08/20/2023 8:00 AM EST Clinical Support [facility] [address] [place] [address], [place] [address] [facility] Start: 08-19-2023 End: 08-19-2023 Clinical Support 08/19/2023 8:00 AM EST Clinical Support [facility] [address] [place] [address], [place] [address] [facility] Start: 08-17-2023 End: 08-17-2023 Clinical Support 08/17/2023 8:00 AM EST Clinical Support [facility] [address] [place] [address], [place] [address] [facility] Start: 08-13-2023 End: 08-13-2023 Clinical Support 08/13/2023 8:00 AM EST Clinical Support [facility] [address] [place] [address], [place] [address] [facility] Start: 08-12-2023 End: 08-12-2023 Clinical Support 08/12/2023 8:00 AM EST Clinical Support [facility] [address] [facility] [place] [address] [facility] Start: 08-10-2023 End: 08-10-2023 Clinical Support 08/10/2023 8:00 AM EST Clinical Support [facility] [address] [facility] [place] [address] [facility] Start: 08-09-2023 End: 08-09-2023 Patient encounter procedure 08/09/2023 4:30 PM EST Office Visit [facility] [address] [place] [address] Shaikh Bautista MD [address] [place] [address] Arrived [facility] Comment on above: Arrived Start: 08-09-2023 End: 08-09-2024 Albumin, urine, random Albumin, urine, random Lab Routine Type 2 diabetes mellitus without complication, without long-term current use of insulin ([facility]/HCC) Expected: 08/09/2023 (Approximate), Expires: 08/09/2024 [facility] Comment on above: Expected: 08/09/2023 (Approximate), Expi res: 08/09/2024 Start: 08-09-2023 End: 08-09-2024 CBC W Auto Differential panel - Blood CBC and differential Lab Routine Type 2 diabetes mellitus without complication, without long-term current use of insulin (CMS/HCC) Expected: 08/09/2023 (Approximate), Expires: 08/09/2024 [facility] Comment on above: Expected: 08/09/2023 (Approximate), Expi res: 08/09/2024 Start: 08-09-2023 End: 08-09-2024 Comprehensive metabolic 2000 panel - Serum or Plasma Comprehensive metabolic panel Lab Routine Type 2 diabetes mellitus without complication, without long-term current use of insulin (CMS/HCC) Expected: 08/09/2023 (Approximate), Expires: 08/09/2024 [facility] Comment on above: Expected: 08/09/2023 (Approximate), Expi res: 08/09/2024 Start: 08-09-2023 End: 08-09-2024 Creatine kinase [Enzymatic activity/volume] in Serum or Plasma CK Lab Routine Generalized muscle ache Expected: 08/09/2023 (Approximate), Expires: 08/09/2024 [facility] Work Phone: Comment on above: Expected: 08/09/2023 (Approximate), Expi res: 08/09/2024 Start: 08-09-2023 End: 08-09-2024 Creatinine [Mass/volume] in Urine Creatinine, urine, random Lab Routine Type 2 diabetes mellitus without complication, without long-term current use of insulin ([facility]) Expected: 08/09/2023 (Approximate), Expires: 08/09/2024 [facility] Comment on above: Expected: 08/09/2023 (Approximate), Expi res: 08/09/2024 Start: 08-09-2023 End: 08-09-2024 Hemoglobin A1c measurement Hemoglobin A1c Lab Routine Type 2 diabetes mellitus without complication, without long-term current use of insulin (CMS/HCC) Expected: 08/09/2023 (Approximate), Expires: 08/09/2024 [facility] Comment on above: Expected: 08/09/2023 (Approximate), Expi res: 08/09/2024 Start: 08-09-2023 End: 08-09-2024 Lipid 1996 panel - Serum or Plasma Lipid panel Lab Routine Hyperlipidemia, unspecified hyperlipidemia type (CMS/HCC) Expected: 08/09/2023 (Approximate), Expires: 08/09/2024 [facility] Comment on above: Expected: 08/09/2023 (Approximate), Expi res: 08/09/2024 Start: 08-06-2023 End: 08-06-2023 Clinical Support 08/06/2023 8:00 AM EST Clinical Support [facility] [address] [place] [phone] [facility] Start: 08-05-2023 End: 08-05-2023 Clinical Support 08/05/2023 8:00 AM EST Clinical Support [facility] [address] [facility] [place] [address] [facility] Start: 08-03-2023 End: 08-03-2023 Clinical Support 08/03/2023 8:00 AM EST Clinical Support [facility] [address] [facility] [place] [address] [facility] Start: 07-30-2023 End: 07-30-2023 Clinical Support 07/30/2023 8:00 AM EST Clinical Support [facility] [address] [facility] [place] [address] [facility] Start: 07-29-2023 End: 07-29-2023 Clinical Support 07/29/2023 8:00 AM EST Clinical Support [facility] [address] [facility] [place] [address] [facility] Start: 07-27-2023 End: 07-27-2023 Clinical Support 07/27/2023 8:00 AM EST Clinical Support [facility] [address] [place] [address], [place] [address] [facility] Start: 07-23-2023 End: 07-23-2023 Clinical Support 07/23/2023 8:00 AM EST Clinical Support [facility] [address] [facility] [place] [address] [facility] Start: 07-22-2023 End: 07-22-2023 Clinical Support 07/22/2023 8:00 AM EST Clinical Support [facility] [address] [place] [address], [place] [address] [facility] Start: 07-20-2023 End: 07-20-2023 Clinical Support 07/20/2023 8:00 AM EST Clinical Support [facility] [address] [place] [address], [place] [address] [facility] Start: 07-16-2023 End: 07-16-2023 Clinical Support 07/16/2023 8:00 AM EST Clinical Support [facility] [address] [place] [phone] [facility] Start: 07-15-2023 End: 07-15-2023 Clinical Support 07/15/2023 8:00 AM EST Clinical Support [facility] [address] [place] [address], [place] [address] [facility] Start: 06-28-2023 Advance Directive Discussion Advance Directive Discussion [facility] Start: 02-26-2023 Influenza vaccination [facility] Start: 2020 Abdominal aortic aneurysm screening Abdominal Aortic Aneurysm (AAA) Screen [facility] Start: 2020 Fall Risk Screening Fall Risk Screening [facility] Start: 2020 Pneumococcal Vaccine: 65+ (1 of 1 - PCV) Pneumococcal Vaccine: 65+ (1 of 1 - PCV) [facility] Start: 12-26-2017 DTaP,Tdap and Td Vaccines (2 - Td or Tdap) DTaP,Tdap and Td Vaccines (2 - Td or Tdap) [facility] Start: 12-26-2017 Urine microalbumin profile DTaP,Tdap,Td Vaccine (2 - Td or Tdap) [facility] Start: 2015 RSV Vaccine (1 - Risk 60-74 years 1-dose series) RSV Vaccine (1 - Risk 60-74 years 1-dose series) [facility] Start: 2005 Administration of varicella zoster vaccine Zoster (Shingles) Vaccine (1 of 2) [facility] Start: 2005 Shingrix Vaccine (1 of 2) Shingrix Vaccine (1 of 2) [facility] Start: 2000 Screening for malignant neoplasm of colon [facility] Start: 1985 Zoledronic acid therapy Alpha-1 Antitrypsin Deficiency Screening [facility] Start: 1974 DTaP,Tdap and Td Vaccines (1 - Tdap) DTaP,Tdap and Td Vaccines (1 - Tdap) [facility] Start: 1974 Pneumococcal Vaccine: 50+ (1 of 2 - PCV) Pneumococcal Vaccine: 50+ (1 of 2 - PCV) [facility] Start: 1974 Pneumococcal Vaccine: 65+ Years (1 of 2 - PCV) Pneumococcal Vaccine: 65+ Years (1 of 2 - PCV) [facility] Start: 1974 Urine screening for protein Diabetes: Urine Protein Screening [facility] Start: 1973 Adult BMI Follow Up Plan Adult BMI Follow Up Plan [facility] Start: 1973 Annual PCP Team Chronic Disease Visit Annual PCP Team Chronic Disease Visit [facility] Start: 1973 Anxiety Screening Anxiety Screening [facility] Start: 1973 BP Controlled (<130/80) BP Controlled (<130/80) [facility] Start: 1973 Depression Screening Depression Screening [facility] Start: 1973 Hepatitis C screening Hepatitis C Screening [facility] Start: 1973 Spirometry Spirometry [facility] Start: 1967 Depression Screening Depression Screening [facility] Start: 1965 Diabetic foot examination Diabetic Foot Exam [facility] Start: 1965 Glaucoma screening [facility] Start: 1965 Hepatitis B screening Urine Albumin:Creatinine Ratio [facility] Start: 1961 Pneumococcal Vaccine: 65+ Years (1 - PCV) Pneumococcal Vaccine: 65+ Years (1 - PCV) [facility] Start: 1961 Pneumococcal Vaccine: 65+ Years (1 of 2 - PCV) Pneumococcal Vaccine: 65+ Years (1 of 2 - PCV) [facility] Start: 1960 Hemoglobin A1c measurement HbA1C [facility] Start: 1955 Hemoglobin A1c measurement Diabetes: Hemoglobin A1C [facility] Start: 1955 Medicare Annual Wellness (AWV) Medicare Annual Wellness (AWV) [facility] Start: 1955 Medicare Annual Wellness Visit Medicare Annual Wellness Visit [facility] Start: 1955 Screening for malignant neoplasm of colon [facility] CARDIAC IMPLANTABLE DEVICE CHECK CARDIAC IMPLANTABLE DEVICE CHECK PACEART Routine Pacemaker reprogramming/check 06/13/2024 1:26 PM EST [facility] CARDIAC IMPLANTABLE DEVICE CHECK CARDIAC IMPLANTABLE DEVICE CHECK PACEART Routine 06/26/2024 1:55 PM EST [facility] Work Phone: CARDIAC IMPLANTABLE DEVICE CHECK CARDIAC IMPLANTABLE DEVICE CHECK PACEART Routine Pacemaker reprogramming/check 07/26/2024 12:00 PM EST [facility] CARDIAC IMPLANTABLE DEVICE CHECK CARDIAC IMPLANTABLE DEVICE CHECK PACEART Routine Pacemaker reprogramming/check 11/23/2024 9:42 AM EDT [facility] CARDIOPULMONARY REHABILITATION CARDIOPULMONARY REHABILITATION Cardiac Services Ordered: 07/08/2023 [facility] Comment on above: Ordered: 07/08/2023 CARDIOPULMONARY REHABILITATION CARDIOPULMONARY REHABILITATION Cardiac Services Ordered: 07/08/2023 [facility] Comment on above: Ordered: 07/08/2023 CARDIOPULMONARY REHABILITATION CARDIOPULMONARY REHABILITATION Cardiac Services Ordered: 07/13/2023 [facility] Comment on above: Ordered: 07/13/2023 CARDIOPULMONARY REHABILITATION CARDIOPULMONARY REHABILITATION Cardiac Services Ordered: 07/15/2023 [facility] Comment on above: Ordered: 07/15/2023 CARDIOPULMONARY REHABILITATION CARDIOPULMONARY REHABILITATION Cardiac Services Ordered: 07/22/2023 [facility] Comment on above: Ordered: 07/22/2023 CARDIOPULMONARY REHABILITATION CARDIOPULMONARY REHABILITATION Cardiac Services Ordered: 07/23/2023 [facility] Comment on above: Ordered: 07/23/2023 CARDIOPULMONARY [...] REHABILITATION CARDIOPULMONARY REHABILITATION Cardiac Services Ordered: 10/01/2023 [facility] Comment on above: Ordered: 10/01/2023 CARDIOPULMONARY [...] Palpitations 1 Occurrences starting 05/29/2024 until 05/29/2025 [facility] Work Phone: Comment on above: 1 Occurrences starting 05/29/2024 until 05/29/2025 End: 06-22-2025 ECG COMPLETE ECG COMPLETE ECG Routine Persistent atrial fibrillation (HCC) 1 Occurrences starting 06/22/2024 until 06/22/2025 [facility] Work Phone: Comment on above: 1 Occurrences starting 06/22/2024 until 06/22/2025 End: 06-22-2025 Echocardiography ECHO Cardiology Routine Persistent atrial fibrillation (HCC) 1 Occurrences starting 06/22/2024 until 06/22/2025 [facility] Comment on above: 1 Occurrences starting 06/22/2024 until 06/22/2025 Immunizations Immunization Date Immunization Notes Care Provider Cristiano perez 12-27-2007 tetanus toxoid, redu humphrey diphtheria toxoid, and acellular pertussis vaccine, adsorbed Maame Thakkar NP Work Phone: [facility] 06-28-2001 TD(adult) unspecifie d formulation Maame Thakkar NP Work Phone: [facility] Payers Date Payer Category Payer Private Health Insurance [facility] [employer] [id number] 2024 Unknown [id number] 2023 Medicare (Managed Care) 1.2. [id number] 2021 Medicare [id number] .[id number] 2021 Medicare HMO [employer] [id number] 2021 Unknown [id number] 2019 Unknown [id number]. 1.13.693.2 .[id number] 2018 Unknown [id number] 1998 Unknown [id number] 72 1959 Medicare [id number] 1959 Unknown [id number] 1955 Unknown [id number] 2.16.840.1.580799.3.579.2 .593 1955 Unknown [id number] 2.16.840.1.272152.3.579.2 .8 1955 Unknown [id number] 2.16.840.1.274035.3.579.2 .1955 Unknown [id number] 2.16.840.1.416547.3.579.2 .1955 Unknown [id number] 2.16.840.1.619615.3.579.2 .1955 Unknown [id number] 2.16.840.1.678854.3.579.2 .1955 Unknown [id number] 2.16.840.1.407815.3.579.2 .1955 Unknown [id number] 2.16.840.1.143205.3.579.2 .1955 Unknown [id number] 2.16.840.1.774356.3.579.2 .1285 1955 Unknown [id number] 2.16.840.1.793769.3.579.2 .1285 1955 Unknown [id number] 2.16.840.1.042475.3.579.2 .1285 1955 Unknown [id number] 2.16.840.1.991809.3.579.2 .1285 1955 Unknown [id number] 2.16.840.1.472800.3.579.2 .1285 1955 Unknown [id number] 2.16.840.1.865644.3.579.2 .1285 1955 Unknown [id number] 2.16.840.1.478327.3.579.2 .1285 1955 Unknown [id number] 2.16.840.1.427363.3.579.2 .128 1955 Unknown [id number] 2.16.840.1.261548.3.579.2 .1286 1955 Unknown [id number] 2.16.840.1.771732.3.579.2 .1285 1955 Unknown [id number] 2.16.840.1.716282.3.579.2 .1285 1955 Unknown [id number] 2.16.840.1.026918.3.579.2 .1285 1955 Unknown [id number] 2.16.840.1.437196.3.579.2 .1285 1955 Unknown [id number] 2.16.840.1.765141.3.579.2 .1285 1955 Unknown [id number] 2.16.840.1.732466.3.579.2 .1285 1955 Unknown [id number] 2.16.840.1.728860.3.579.2 .1285 1955 Unknown [id number] 2.16.840.1.396244.3.579.2 .1285 1955 Unknown [id number] 2.16.840.1.765599.3.579.2 .1285 1955 Unknown [id number] 2.16.840.1.110007.3.579.2 .1285 1955 Unknown [id number] 2.16.840.1.894829.3.579.2 .1285 1955 Unknown [id number] 2.16.840.1.109249.3.579.2 .1285 1955 Unknown [id number] 2.16.840.1.832232.3.579.2 .1285 1955 Unknown [id number] 2.16.840.1.849683.3.579.2 .1285 1955 Unknown [id number] 2.16.840.1.327540.3.579.2 .1286 1955 Unknown [id number] 2.16.840.1.277403.3.579.2 .1285 1955 Unknown [id number] 2.16.840.1.162421.3.579.2 .128 1955 Unknown [id number] 2.16.840.1.701388.3.579.2 .1285 1955 Unknown [id number] 2.16.840.1.448062.3.579.2 .128 1955 Unknown [id number] 2.16.840.1.799858.3.579.2 .1285 1955 Unknown [id number] 2.16.840.1.125477.3.579.2 .1285 1955 Unknown [id number] 2.16.840.1.247293.3.579.2 .1285 1955 Unknown [id number] 2.16.840.1.339726.3.579.2 .1285 1955 Unknown [id number] 2.16.840.1.566492.3.579.2 .1285 1955 Unknown [id number] 2.16.840.1.982573.3.579.2 .1285 1955 Unknown [id number] 2.16.840.1.900349.3.579.2 .1285 1955 Unknown [id number] 2.16.840.1.721466.3.579.2 .1285 1955 Unknown [id number] 2.16.840.1.004778.3.579.2 .1285 1955 Unknown [id number] 2.16.840.1.818547.3.579.2 .1285 1955 Unknown [id number] 2.16.840.1.237934.3.579.2 .1285 Unknown [id number] 2.16.840.1.476060.3.579.2 .128 1955 Unknown [id number] 2.16.840.1.186352.3.579.2 .1285 1955 Unknown [id number] 2.16.840.1.097328.3.579.2 .128 1955 Unknown [id number] 2.16.840.1.435513.3.579.2 .1285 1955 Unknown [id number] 2.16.840.1.903255.3.579.2 .1285 1955 Unknown [id number] 2.16.840.1.425273.3.579.2 .1285 1955 Unknown [id number] 2.16.840.1.067563.3.579.2 .1285 1955 Unknown [id number] 2.16.840.1.564279.3.579.2 .1285 1955 Unknown [id number] 2.16.840.1.458201.3.579.2 .1285 1955 Unknown [id number] 2.16.840.1.408771.3.579.2 .1285 1955 Unknown [id number] 2.16.840.1.873191.3.579.2 .1285 1955 Unknown [id number] 2.16.840.1.825064.3.579.2 .1285 1955 Unknown [id number] 2.16.840.1.263790.3.579.2 .1285 1955 Unknown [id number] 2.16.840.1.269158.3.579.2 .1285 1955 Unknown [id number] 2.16.840.1.347894.3.579.2 .1285 1955 Unknown [id number] 2.16.840.1.249113.3.579.2 .1286 1955 Unknown [id number] 2.16.840.1.587716.3.579.2 .1286 1955 Unknown [id number] 2.16.840.1.967415.3.579.2 .1286 1955 Unknown [id number] 2.16.840.1.376607.3.579.2 .1286 1955 Unknown [id number] 2.16.840.1.791031.3.579.2 .1286 1955 Unknown [id number] 2.16.840.1.638208.3.579.2 .1286 1955 Unknown [id number] 2.16.840.1.813290.3.579.2 .1286 1955 Unknown [id number] 2.16.840.1.453068.3.579.2 .1286 1955 Unknown [id number] 2.16.840.1.500215.3.579.2 .1286 1955 Unknown [id number] 2.16.840.1.584385.3.579.2 .1259 1955 Unknown [id number] 2.16.840.1.816987.3.579.2 .1259 1955 Unknown [id number] 2.16.840.1.905544.3.579.2 .1259 1955 Unknown [id number] 2.16.840.1.262070.3.579.2 .1286 1955 Unknown [id number] 2.16.840.1.531345.3.579.2 .1286 1955 Unknown [id number] 2.16.840.1.720150.3.579.2 .1286 1955 Unknown [id number] 2.16.840.1.779224.3.579.2 .1286 Social History Date Type Detail Facility Tobacco smoking status [facility] Tobacco smoking consumption unknown [facility] Start: 1955 Sex Assigned At Not on file [facility] Start: 08-09-2023 End: 06-15-2024 Gender identity Not on file [facility] Start: 05-10-2023 End: 08-09-2023 Tobacco smoking status [facility] Ex-smoker [facility] History of tobacco use Current smoker [facility] History of tobacco use Cigarette Smoker [facility] Start: 05-10-2023 End: 08-09-2023 Tobacco use and exposure Smokeless tobacco non-user [facility] Start: 08-09-2023 End: 11-13-2024 Alcohol intake Lifetime non-drinker (finding) [facility] Start: 08-09-2023 End: 06-15-2024 History of Social function [facility] National Score (1-100), lower number is lower risk 88 [facility] Start: 1955 Sex assigned at Male [facility] Start: 07-30-2024 Gender identity Identifies as male gender (finding) [facility] Start: 06-04-2023 End: 10-26-2024 Alcohol intake Current drinker of alcohol (finding) [facility] Start: 05-10-2023 Alcohol Comment social [facility] Start: 01-31-2015 Sex Male (finding) [facility] NEGATED: Highlighted rowStart: NINF History of tobacco use Passive smoker [facility] Medical Equipment Procedure Code Equipment Code Equipment Origin al Text Equipment Identifier Dates [id number] Start : 12-10-2023 Other [id number] Start: 12-27-2003 [id number] Star t: 11-27-2023 [id number] Start : 11-27-2023 [id number] Jeremy Granados f [id number] Start: 06-22-2024 Other [id number] Start: 06-22-2024 Other 7120q Dura ta [id number] Start: 06-22-2024 Other 1457q Quar tet [id number] Start: 06-22-2024 Goals Date Patient Goal Desired Activity /State Personal health goal Personal health goal Functional Status Date Assessment Result Facility 06-27-2024 Are you deaf, or do you have serious difficulty hearing No 06/27/2024 5:00 PM Isa Connelly RN No [facility] 06-27-2024 Are you blind, or do you have serious difficulty seeing, even when wearing glasses No 06/27/2024 5:00 PM Isa Connelly, MELISSA No [facility] 06-27-2024 Do you have serious difficulty walking or climbing stairs No 06/27/2024 5:00 PM Isa Connelly, MELISSA No [facility] 06-27-2024 Do you have difficul ty dressing or bathing No 06/27/2024 5:00 PM Isa Connelly, MLEISSA No [facility] 06-27-2024 Because of a physica l, mental, or emotional condition, do you have difficulty doing errands alone such as visiting a physician's office or shopping No 06/27/2024 5:00 PM Isa Connelly RN No [facility] Mental Status Date Assessment Result Facility 06-27-2024 Because of a physica l, mental, or emotional condition, do you have serious difficulty concentrating, remembering, or making decisions No 06/27/2024 5:00 PM Isa Connelly, MELISSA [facility] Clinical Notes 08-09-2023 to 03-30-2025 Maame Thakkar NP - 11/13/2024 12:41 PM Kiran Thakkar NP - 11/13/2024 12:40 PM RHONDA MARTINEZ - 11/13/2024 11:45 AM Kiran Thakkar NP - 11/13/2024 11:45 AM EDTPatient Instructions Note Date & Type Note Facility 03-30-2025 Note [facility] Note Reason [...] with infection and he was referred to [facility] for extraction in May 2024. He [...] On 06/19/2024 he underwent extraction of complete [employer]-D system without complications. He was continued on IV antibiotics and on 06/22/2024 he underwent right sided [employer] D reimplantation [facility] device. He was given 1 dose of dalbavancin IV the day of discharge followed by 4 weeks of Bactrim DS He followed virtually with [facility] with Dr. Howell and last visit [...] that he had an ablation. 12/08/2023 Giles Bolton is a 69 y.o. male CAD s/p CABG x 4 and subsequent PCI's, ischemic cardiomyopathy with an EF of 20% s/p AICD, diabetes mellitus type 2, he was admitted to [facility] July 2023 with atrial fibrillation with rapid [...] medical history of Anxiety, Arthritis, Atrial fibrillation (CMS/HCC), BPH (benign prostatic hyperplasia), CHF (congestive heart failure) (CMS/HCC), COPD (chronic obstructive pulmonary disease) (CMS/HCC), Coronary artery disease, Diabetes mellitus (CMS/HCC), HLD [...] Metformin, and Simvastatin Medications Current Outpatient Medications: apixaban (Eliquis) 5 mg tablet, Take 1 [...] the morning., Disp: 90 tablet, Rfl: 3 folic acid (Folvite) 1 mg tablet, folic acid 1 mg tablet, Disp: , Rfl: furosemide (Lasix) 20 mg tablet, Take 1 tablet (20 mg) by mouth in the morning., Disp: 30 tablet, Rfl: 0 magnesium oxide (Mag-Ox) 400 mg (241.3 mg magnesium) tablet, Take 400 mg by mouth in the morning., Disp: , Rfl: methotrexate 2.5 mg tablet, Take 15 mg by mouth 1 (one) time per week, Disp: , Rfl: metoprolol succinate XL (Toprol-XL) 25 mg 24 hr tablet, Take 1 tablet (25 mg) by mouth in the morning. (Patient taking differently: Take 12.5 mg by jh (more content not included)... [facility] 11-13-2024 History of Present illness Narrative Associated Problem(s): Environmental and seasonal allergies Add OTC loratadine and flonase nasal spray Associated Problem(s): Subacute maxillary sinusitis Has had similar episodes in the past, usually w spring time Does also describe allergy sxs as well Recommend OTC loratadine and flonase nasal spray Will add atb, if not better in 10 days contact office Pt states his sinus issue started about 2-4 weeks ago, pt states that he has been in bed more so. Pt has been very dizzy- he takes an advil cold and sinus just the one dose a day and it would help with the dizziness. No complaints of ear troubles. Watery eyes. Pt states at one time there was mucus in his throat and drainage but its the dizziness at night when he is laying in bed. He seen a dr in [place] who use to give him a steroid shot that took care of the dizziness. Pt no longer sees him- due to dx. Pt states he had gone to the hospitals to see what was the matter. Pt exercise-bikes Afib & CHF-pace maker Not SOB- but dx with COPD Smoked 40 plus years ago Images from the original note were not included. Giles Bolton is a 69 y.o. male presents with chief complaint of Sinusitis HPI: Pt states his sinus issue started about 2-4 weeks ago, pt states that he has been in bed more so. Pt has been very dizzy- he takes an advil cold and sinus just the one dose a day and it would help with the dizziness. No complaints of ear troubles. Watery eyes. Pt states at one time there was mucus in his throat and drainage but its the dizziness at night when he is laying in bed. He seen a dr in [place] who use to give him a steroid shot that took care of the dizziness. Pt no longer sees him- due to dx. Pt states he had gone to the hospitals to see what was the matter. Pt exercise-bikes Afib & CHF-pace maker Not SOB- but dx with COPD Smoked 40 plus years ago Has been dx with sinus issues, was treated with steroids, usually correlates w spring, has been taking advil/cold and sinus No fever, + occ stuffy nose, +sinus pressure, watery eyes, no ear complaints, no cough, no dyspnea, Sinusitis Associated symptoms include sinus pressure. Pertinent negatives include no ear pain or sneezing. SUBJECTIVE: MEDICATIONS: Current Outpatient Medications Medication Instructions amiodarone (PACERONE) 200 mg, Daily apixaban (ELIQUIS) 5 mg, 2 times daily clopidogrel (PLAVIX) 75 mg, Daily digoxin (LANOXIN) 0.125 mg, Daily empagliflozin (JARDIANCE) 25 mg, Daily famotidine (PEPCID) 20 mg, Daily furosemide (LASIX) 20 mg, 2 times daily magnesium oxide (MAG-OX) 400 mg, Daily RT methotrexate 15 mg, Weekly metoprolol succinate XL (TOPROL-XL) 25 mg, Oral, Daily rosuvastatin (CRESTOR) 20 mg, Daily RT sacubitril-valsartan (Entresto) 24-26 MG tablet 1 tablet, 2 times daily spironolactone (ALDACTONE) 25 mg, Daily tamsulosin (FLOMAX) 0.4 mg, Daily ALLERGIES: Allergies Allergen Reactions Codeine Dizziness and Other Lisinopril Other Reaction(s): COUGHING Metformin Diarrhea REVIEW OF SYMPTOMS: Review of Systems Constitutional: Negative for activity change, appetite change and unexpected weight change. HENT: Positive for sinus pressure. Negative for ear pain, nosebleeds, sneezing, trouble swallowing and voice change. Eyes: Negative for pain, discharge (watery) and visual disturbance. Respiratory: Negative for apnea, chest tightness and wheezing. Cardiovascular: Negative for leg swelling. Gastrointestinal: Negative for abdominal distention, blood in stool, constipation and diarrhea. Genitourinary: Negative for decreased urine volume, difficulty urinating, dysuria and hematuria. Skin: Negative for color change. Neurological: Positive for dizziness (vertigo sensation). Negative for tremors and seizures. Psychiatric/Behavioral: Negative for agitation, decreased concentration, hallucinations, self-injury and suicidal ideas. The patient is not nervous/anxious. Hematological: Negative for adenopathy. Does not bruise/bleed easily. Endocrine: Negative for cold intolerance, heat intolerance, polydipsia and polyuria. Allergic/Immunologic: Negative for environmental allergies and food allergies. PAST MEDICAL HISTORY Past Medical History: Diagnosis Date CHF (congestive heart failure) ([facility]) Hyperlipidemia ([facility]) Hypertension ([facility]) Type II diabetes mellitus ([facility]) Past Surgical History: Procedure Laterality Date BYPASS [...] mother, and sibling. OBJECTIVE: Visit Vitals BP 98/78 (BP Location: Left arm, Patient Position: Sitting, BP Cuff Size: Adult long) Pulse 89 Temp 98.5 F (Temporal) Wt 189 lb SpO2 98% BMI 27.91 kg/m Smoking Status Former BSA 2.04 m Physical Exam Vitals and nursing note reviewed. Constitutional: Appearance: Normal appearance. He is not ill-appearing. HENT: Head: Normocephalic. Right Ear: Tympanic membrane, ear canal and external ear normal. Left Ear: Tympanic membrane, ear canal and external ear normal. Nose: Congestion and rhinorrhea present. Mouth/Throat: Mouth: Mucous membranes are moist. Pharynx: Oropharynx is clear. No oropharyngeal exudate or posterior oropharyngeal erythema. Eyes: Extraocular Movements: Extraocular movements intact. Conjunctiva/sclera: Conjunctivae normal. Pupils: Pupils are equal, round, and reactive to light. Neck: Vascular: No carotid bruit. Cardiovascular: Rate and Rhythm: Normal rate and regular rhythm. Pulses: Normal pulses. Heart sounds: Normal heart sounds. No murmur heard. Pulmonary: Effort: Pulmonary effort is normal. Breath sounds: Normal breath sounds. No wheezing or rhonchi. Musculoskeletal: Cervical back: Neck supple. Skin: General: Skin is warm and dry. Capillary Refill: Capillary refill takes 2 to 3 seconds. Neurological: General: No focal deficit present. Mental Status: He is alert. Cranial Nerves: No cranial nerve deficit. Comments: Neg romberg, neg ulnar drift Psychiatric: Mood and Affect: Mood normal. Behavior: Behavior normal. Thought Content: Thought content normal. Judgment: Judgment normal. ASSESSMENT AND PLAN: No follow-ups on file. Problem List Items Addressed This Visit Essential hypertension (CMS/HCC) Please check blood pressure daily and record DASH diet Limit caffeine Take medication as directed Contact office if chest pain, pressure, dizziness, shortness of breath, swelling legs Recommend slow position changes Current med: b carlee, entresto, and aldactone 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) - Primary Under the care of cardiology [facility] Meds: amiodirone, jardiance, eliquis, b carlee, statin, entresto, and aldactone Subacute maxillary sinusitis Has had similar episodes in the past, usually w spring time Does also describe allergy sxs as well Recommend OTC loratadine and flonase nasal spray Will add atb, if not better in 10 days contact office Relevant Medications amoxicillin-clavulanate (Augmentin) 875-125 MG tablet Environmental and seasonal allergies Add OTC loratadine and flonase nasal spray Associated Problem(s): Essential hypertension (CMS/HCC) Please check blood pressure daily and record DASH diet Limit caffeine Take medication as directed Contact office if chest pain, pressure, dizziness, shortness of breath, swelling legs Recommend slow position changes Current med: b carlee, entresto, and aldactone Associated Problem(s): 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) Under the care of cardiology [facility] Meds: amiodirone, jardiance, eliquis, b carlee, statin, entresto, and aldactone documented in this encounter [facility] 11-13-2024 Instructions Maame Thakkar NP - 11/13/2024 11:45 AM EDT Lets try taking loratadine 10mg (claraitin allergy medication) once a day, few weeks Flonase nasal spray 2 sprays each nostril daily for a few weeks Antibiotic Amox/clavulanate 875mg twice a day for 10 days take with food If after about 10 days if not better call the office and let me know documented in this encounter [facility] 10-26-2024 Miscellaneous Notes Preoperative Education Checklist- General Surgery date: 11/02/24 Surgery time: 1130 Arrival time: 0930 1. Bring a photo ID and your insurance card with you the day of surgery. You will check in at the main lobby of the [facility]- registration desk is straight ahead as soon as you walk in. Tell them you are here for surgery. 2. If you have a Living Will/Durable Power of Rn Progressive Care for Health Care that is not on file here, please bring a copy the day of surgery. 3. Please shower/bathe the night before surgery with the provided soap or wipes. Do not shower the morning of surgery- you will do use wipes when you arrive here at the hospital before getting into your surgical gown. Do not shave the area of your procedure for 2 days prior to your surgery. 4. NO powder, lotion, perfume/cologne, aftershave, make-up, deodorant, or hair products after you have bathed. 5. NO nail turkmen/acrylic on at least one finger. If you are having a hand, wrist or foot surgery then all nail turkmen and artificial/acrylic nails must be removed from that hand or foot. 6. Avoid ALL Aspirin and non-steroidal anti-inflammatory drugs and certain vitamins (Ibuprofen, Advil, Aleve, Excedrin, Meloxicam, Celebrex, fish/krill oil, etc.) for 7 days prior to surgery as instructed by your surgeon and/or your prescribing doctor. Tylenol IS ALLOWED. If you are on Ticlid, Xarelto, Eliquis, Pradaxa, Plavix or Coumadin, please check with your prescribing doctor for instructions for when to stop them. 7. If you use an inhaler, continue to use it routinely. 8. Nothing to eat or drink (not even water, gum, mints, or hard candy!) AFTER midnight prior to your surgery. 9. Take only medications that you are instructed to on the morning of surgery with a TINY SIP OF WATER. 10. Choose a responsible adult that will be able to drive you home when you are discharged from your hospital stay for your surgery and can stay with you in your home for 24 hours after your procedure. You must NOT drive any vehicle or operate any machinery for 24 hours after surgery. 11. When you dress for your appointment, please wear loose fitting clothing that is appropriate to accommodate your surgical area procedure. BRING WITH YOU ANY DEVICES YOU MAY NEED: LEVY hose, ice machine, sling/swath, brace or special shoe, oversized zip-up or button up shirt, CPAP machine if staying overnight. 12. Do NOT wear jewelry, watches, or any piercings or metal for surgery- leave these valuables and money at home. 13. Do NOT wear contact lenses for surgery- glasses are okay if needed. 14. The anesthesiologist will talk with you the day of surgery and will ask you to sign a Consent Form. 15. Refrain from smoking or any type of tobacco use for at least 8 hours and marijuana for 24 hours prior to arrival for your surgery. 16. If a GREEN BLOOD band is given to you, please bring it with you for the day of surgery. 17. Notify your surgeon if you develop any illness before your surgery. 18. If you are staying overnight, please DO NOT BRING your home medications with you. 19. If you have any questions prior to surgery, please call the Preadmission Testing office at [phone], Mon.-Fri. 7 a.m.-3 p.m. Leave a voicemail if needed. Pre-Surgery Instructions: Medication Instructions apixaban (ELIQUIS) 5 mg tablet Per Surgeon's instructions cholecalciferol 1,000 units tablet Stop taking 0 days prior to procedure clopidogreL (PLAVIX) 75 mg tablet Per Surgeon's instructions empagliflozin (JARDIANCE) 25 mg tablet tablet Stop taking 3 days prior to procedure furosemide (LASIX) 20 mg tablet Stop taking 0 days prior to procedure methotrexate 2.5 mg chemo tablet Stop taking 0 days prior to procedure metoprolol tartrate (LOPRESSOR) 25 mg tablet Continue as prescribed, take morning of procedure multivitamin/iron/folic acid (CENTRUM ORAL) Stop taking 0 days prior to procedure pantoprazole (PROTONIX) 40 mg EC tablet Stop taking 0 days prior to procedure rosuvastatin (CRESTOR) 20 mg tablet Stop taking 0 days prior to procedure sacubitril/valsartan (ENTRESTO ORAL) Continue as prescribed, take morning of procedure sod sulf-pot chloride-mag sulf 1.479-0.188- 0.225 gram tablet Stop taking 0 days prior to procedure spironolactone (ALDACTONE) 25 mg tablet Stop taking 0 days prior to procedure tamsulosin (FLOMAX) 0.4 mg capsule Stop taking 0 days prior to procedure documented in this encounter [facility] 10-26-2024 Nurse Note Preoperative Education Checklist- General Surgery date: 11/02/24 Surgery time: 1130 Arrival time: 929 1. Bring a photo ID and your insurance card with you the day of surgery. You will check in at the main lobby of the [facility]- registration desk is straight ahead as soon as you walk in. Tell them you are here for surgery. 2. If you have a Living Will/Durable Power of Rn Progressive Care for Health Care that is not on file here, please bring a copy the day of surgery. 3. Please shower/bathe the night before surgery with the provided soap or wipes. Do not shower the morning of surgery- you will do use wipes when you arrive here at the hospital before getting into your surgical gown. Do not shave the area of your procedure for 2 days prior to your surgery. 4. NO powder, lotion, perfume/cologne, aftershave, make-up, deodorant, or hair products after you have bathed. 5. NO nail turkmen/acrylic on at least one finger. If you are having a hand, wrist or foot surgery then all nail turkmen and artificial/acrylic nails must be removed from that hand or foot. 6. Avoid ALL Aspirin and non-steroidal anti-inflammatory drugs and certain vitamins (Ibuprofen, Advil, Aleve, Excedrin, Meloxicam, Celebrex, fish/krill oil, etc.) for 7 days prior to surgery as instructed by your surgeon and/or your prescribing doctor. Tylenol IS ALLOWED. If you are on Ticlid, Xarelto, Eliquis, Pradaxa, Plavix or Coumadin, please check with your prescribing doctor for instructions for when to stop them. 7. If you use an inhaler, continue to use it routinely. 8. Nothing to eat or drink (not even water, gum, mints, or hard candy!) AFTER midnight prior to your surgery. 9. Take only medications that you are instructed to on the morning of surgery with a TINY SIP OF WATER. 10. Choose a responsible adult that will be able to drive you home when you are discharged from your hospital stay for your surgery and can stay with you in your home for 24 hours after your procedure. You must NOT drive any vehicle or operate any machinery for 24 hours after surgery. 11. When you dress for your appointment, please wear loose fitting clothing that is appropriate to accommodate your surgical area procedure. BRING WITH YOU ANY DEVICES YOU MAY NEED: LEVY hose, ice machine, sling/swath, brace or special shoe, oversized zip-up or button up shirt, CPAP machine if staying overnight. 12. Do NOT wear jewelry, watches, or any piercings or metal for surgery- leave these valuables and money at home. 13. Do NOT wear contact lenses for surgery- glasses are okay if needed. 14. The anesthesiologist will talk with you the day of surgery and will ask you to sign a Consent Form. 15. Refrain from smoking or any type of tobacco use for at least 8 hours and marijuana for 24 hours prior to arrival for your surgery. 16. If a GREEN BLOOD band is given to you, please bring it with you for the day of surgery. 17. Notify your surgeon if you develop any illness before your surgery. 18. If you are staying overnight, please DO NOT BRING your home medications with you. 19. If you have any questions prior to surgery, please call the Preadmission Testing office at [phone], Mon.-Fri. 7 a.m.-3 p.m. Leave a voicemail if needed. Pre-Surgery Instructions: Medication Instructions apixaban (ELIQUIS) 5 mg tablet Per Surgeon's instructions cholecalciferol 1,000 units tablet Stop taking 0 days prior to procedure clopidogreL (PLAVIX) 75 mg tablet Per Surgeon's instructions empagliflozin (JARDIANCE) 25 mg tablet tablet Stop taking 3 days prior to procedure furosemide (LASIX) 20 mg tablet Stop taking 0 days prior to procedure methotrexate 2.5 mg chemo tablet Stop taking 0 days prior to procedure metoprolol tartrate (LOPRESSOR) 25 mg tablet Continue as prescribed, take morning of procedure multivitamin/iron/folic acid (CENTRUM ORAL) Stop taking 0 days prior to procedure pantoprazole (PROTONIX) 40 mg EC tablet Stop taking 0 days prior to procedure rosuvastatin (CRESTOR) 20 mg tablet Stop taking 0 days prior to procedure sacubitril/valsartan (ENTRESTO ORAL) Continue as prescribed, take morning of procedure sod sulf-pot chloride-mag sulf 1.479-0.188- 0.225 gram tablet Stop taking 0 days prior to procedure spironolactone (ALDACTONE) 25 mg tablet Stop taking 0 days prior to procedure tamsulosin (FLOMAX) 0.4 mg capsule Stop taking 0 [facility] prior [facility] Miscellaneous Notes Received clearance and hold medication request for patient to have colonoscopy. Patient is scheduled for 11/02/[address] Muniz. Patient arrival time is 10 am with procedure time of noon. Patient and patients verbalized understanding. Called patient to inform him of surgery time change for patients 11/02/24 procedure, patients new time is at 11:30 am with arrival time of 9:30 am. Unable to make contact with patient, left voicemail message for patient to call our office back. Patient called back and verbalized understanding of his procedure time being moved. documented in this encounter [facility] 10-17-2024 Telephone encounter Note Received clearance and hold medication request for patient to have colonoscopy. Patient is scheduled for 11/02/[address] Muniz. Patient arrival time is 10 am with procedure time of noon. Patient and patients verbalized understanding. [facility] 10-17-2024 Telephone encounter Note Called patient to inform him of surgery time change for patients 11/02/24 procedure, patients new time is at 11:30 am with arrival time of 9:30 am. Unable to make contact with patient, left voicemail message for patient to call our office back. [facility] 10-17-2024 Telephone encounter Note Patient called back and verbalized understanding of his procedure time being moved. [facility] 10-11-2024 History of Present illness Narrative Images from the original note were not included. Chief Complaint: Positive Cologuard History of Present Illness Giles Bolton is a 69 y.o. male who presents [...] Past Medical History: Diagnosis Date Atrial fibrillation ([facility] BPH (benign prostatic hyperplasia) CAD (coronary artery disease) Chronic HFrEF (heart failure with reduced ejection fraction) ([facility]) Diabetes ([facility]) GERD (gastroesophageal reflux disease) History of heart artery stent Hypertension Presence of combination internal cardiac defibrillator (ICD) and pacemaker Rheumatoid arthritis ([facility]) Past Surgical History: Procedure Laterality Date CORONARY [...] Strain: Low Risk (08/11/2023) Received from [facility] Overall Financial Resource Strain (CARDIA) Difficulty of Paying Living Expenses: Not hard at all Food Insecurity: No Food Insecurity (08/11/2023) Received from [facility] Hunger Vital Sign Within the past 12 months, you worried that your food would run out before you got the money to buy more.: Never true Within the past 12 months, the food you bought just didn't last and you didn't have money to get more.: Never true Transportation Needs: No Transportation Needs (08/11/2023) Received from [facility] Transportation In the past 12 months, has lack of transportation kept you from medical appointments or from getting medications?: No In the past 12 months, has lack of transportation kept you from meetings, work, or from getting things needed for daily living?: No Physical Activity: Not on file Stress: No Stress Concern Present (08/11/2023) Received from [facility] [employer] [place] [employer] - Occupational Stress Questionnaire Feeling of Stress : Not at all Social Connections: Moderately Integrated (08/11/2023) Received from [facility] Social Connection and Isolation Panel [NHANES] Frequency of Communication with Friends and Family: More than three times a week Frequency of Social Gatherings with Friends and Family: More than three times a week Attends Spiritism Services: More than 4 times per year Active Member of Clubs or Organizations: No Attends Club or Organization Meetings: Never Marital Status: Interpersonal Safety: Not At Risk (09/07/2024) Received from [facility] Humiliation, Afraid, Rape, and Kick questionnaire Fear of Current or Ex-Partner: No Emotionally Abused: No Physically Abused: No Sexually Abused: No Housing Instability: Low Risk (08/11/2023) Received from [facility] Housing Stability Vital Sign In the [...] patient/family/caregiver Referring and communicating with other health residential child care counselor Positive colorectal cancer screening using Cologuard test [R19.5] ISAIAH SOLORIO [facility] General Surgery [place] This note was created with the assistance of a speech recognition program. While intending to generate a timely document that accurately reflects the content of the visit, no guarantee can be provided that every grammatical or spelling mistake has been or will be identified or corrected. Thank you for your understanding. ISAIAH Solorio 10/11/24 1214 [facility] Note [...] with infection and he was referred to [facility] for extraction in May 2024. He [...] On 06/19/2024 he underwent extraction of complete [employer]PERATOR-D system without complications. He was continued on IV antibiotics and on 06/22/2024 he underwent right sided [employer] D reimplantation [facility] device. He was given 1 dose of dalbavancin IV the day of discharge followed by 4 weeks of Bactrim DS He followed virtually with [facility] with Dr. Howell and last visit [...] that he had an ablation. 12/08/2023 Giles Bolton is a 69 y.o. male CAD s/p CABG x 4 and subsequent PCI's, ischemic cardiomyopathy with an EF of 20% s/p AICD, diabetes mellitus type 2, he was admitted to [facility] July 2023 with atrial fibrillation with rapid [...] medical history of Anxiety, Arthritis, Atrial fibrillation (CMS/HCC), BPH (benign prostatic hyperplasia), CHF (congestive heart failure) (CMS/HCC), COPD (chronic obstructive pulmonary disease) (CMS/HCC), Coronary artery disease, Diabetes mellitus (CMS/HCC), HLD [...] magnesium) tablet, Take (more content not included)... [facility] 09-25-2024 Miscellaneous Notes Called Giles regarding the positive cologuard referral that our office received from Maame Thakkar NP, left a message on his voicemail to call the office back to schedule an appointment. Also called on: 09/21 LM TRC 3 LM TRC documented in this encounter [facility] 09-25-2024 Telephone encounter Note Called Giles regarding the positive cologuard referral that our office received from Maame Thakkar NP, left a message on his voicemail to call the office back to schedule an appointment. Also called on: 09/21 LM TRC 3 LM TRC [facility] 09-18-2024 History of Present illness Narrative Associated [...] done a couple weeks ago through the [facility], he had gotten a positive result and was told he was going to need a fu with a colonoscopy. Pt states he does not want to get that done in [place], he is wanting a referral closer. Pt would also like to talk about his right leg possible higher extension, he has been wrapping if for about a week or so. Pt took an aleve today and extra strength tylenol before for pain. Images from the original note were not included. Giles Bolton is a 69 y.o. male presents with chief complaint of No chief complaint on file. HPI: Most [place] He had a recent cologuard test and [...] History: Diagnosis Date CHF (congestive heart failure) ([facility]) Hyperlipidemia ([facility]) Hypertension ([facility]) Type II diabetes mellitus ([facility]) Past Surgical History: Procedure Laterality Date BYPASS [...] Associated Problem(s): Persistent atrial fibrillation (HCC) (CMS/HCC) Eliquis, amiodirone Follow with cardiology Associated Problem(s): HFrEF [...] aldactone Associated Problem(s): CAD (coronary artery disease) ([facility]) On statin, eliquis, jardiance, b carlee, plavix, arb, Associated Problem(s): Phantom limb syndrome with pain ([facility]) No current medications for this documented in this encounter [facility] 09-18-2024 Instructions Maame Thakkar NP - 09/18/2024 1:40 PM EDT Referral to dr muniz for colonoscopy Try ice to affected area if still persists after vacation return make a fu appt documented in this encounter [facility] 09-07-2024 Note [facility] Reason for Consultation: Follow-up of biventricular ICD system HPI: Giles Bolton is a 69 y.o. year old with [...] file Stress: No Stress Concern Present (08/11/2023) [employer] [employer] - Occupational Stress Questionnaire Feeling of Stress : Not at all Social Connections: Moderately Integrated (08/11/2023) Social Connection and Isolation Panel [NHANES] Frequency of Communication with Friends and Family: More than three times a week Frequency of Social Gatherings with Friends and Family: More than three times a week Attends Spiritism Services: More than 4 times per year [...] on file Utilities: Not At Risk (08/11/2023) [facility] Utilities Threatened with loss of utilities: No [...] CAPSULE BY JH (more content not included)... [facility] 09-04-2024 Note [facility] 09-04-2024 History of Present illness Narrative VIRTUAL VISIT PROGRESS NOTE This is a virtual visit using [employer] Zoom Video Visit. It required patient-provider interaction for the medical decision making as documented below. I have communicated my name and active licensure. The patient's identity and physical location were verified at the time of this visit. Either the patient or their legal commercial pest control representative has been informed of the risks and benefits of -- and alternatives to -- treatment through a remote evaluation and consents to proceed with the evaluation remotely. Giles Bolton is a 69 year old male seen for hospital follow-up. Last visit with [place] 07/31/24. Overall he has done well since [...] Prateek Howell MD documented in this encounter [facility] 07-31-2024 Telephone encounter Note Spoke with patient. Patient accepted Virtual appt. 09/04 at 9:00 am [facility] 07-31-2024 Miscellaneous Notes Spoke with patient. Patient accepted Virtual appt. 09/04 at 9:00 am documented in this encounter [facility] 07-31-2024 Note [facility] 07-31-2024 History of Present illness Narrative VIRTUAL VISIT PROGRESS NOTE This is a virtual visit using [employer] Video Visit. It required patient-provider interaction for the medical decision making as documented below. I have communicated my name and active licensure. The patient's identity and physical location were verified at the time of this visit. Either the patient or their legal commercial pest control representative has been informed of the risks and benefits of -- and alternatives to -- treatment through a remote evaluation and consents to proceed with the evaluation remotely. Giles Bolton is a 69 year old male seen [...] Prateek Howell MD documented in this encounter [facility] 07-14-2024 Telephone encounter Note Spoke to patient and scheduled an appointment to come in for vector testing. [facility] 07-14-2024 Miscellaneous Notes Spoke to patient and scheduled an appointment to come in for vector testing. Pt have questions regarding his device causing his stomach to contract, it makes him nauseous. Pt can be reached at [phone] documented in this encounter [facility] 07-14-2024 Telephone encounter Note Pt have questions regarding his device causing his stomach to contract, it makes him nauseous. Pt can be reached at [phone] [facility] 07-06-2024 Telephone encounter Note Post Implant follow up call: Date: 07/06/2024 Name: Giles Bolton Is your incision: Red: No Open: No Swollen: No Draining: No Steri Strips: still intact If the device is an ICD, have you received any shocks: No Have you received your temporary or permanent ID card: Yes Do you have your f/u appointment: Yes Appointments for Next 60 Days Date Time Provider Location Dept Phone 07/31/2024 9:30 AM PRATEEK HOWELL [facility] [phone] 08/03/2024 1:30 PM DEVICE CLINIC [facility] [phone] Any scheduling issues:No Questions moving forward: No Alyse Sutton MA [facility] 07-06-2024 Miscellaneous Notes Post Implant follow up call: Date: 07/06/2024 Name: Giles Bolton Is your incision: Red: No Open: No Swollen: No Draining: No Steri Strips: still intact If the device is an ICD, have you received any shocks: No Have you received your temporary or permanent ID card: Yes Do you have your f/u appointment: Yes Appointments for Next 60 Days Date Time Provider Location Dept Phone 07/31/2024 9:30 AM PRATEEK HOWELL [facility] [phone] 08/03/2024 1:30 PM DEVICE CLINIC [facility] [phone] Any scheduling issues:No Questions moving forward: No Alyse Sutton MA documented in this encounter [facility] 07-05-[address] Jarrett reviewed. He recommends patient increase his lasix for 3 days if having fluid retention and follow up with local museum assistant. Spoke to patient who reports he is [...] next. He expresses understanding. Tootie Delatorre RN [facility] 07-05-[address] Jarrett reviewed. He recommends patient increase his lasix for 3 days if having fluid retention and follow up with local museum assistant. Spoke to patient who reports he is [...] Delatorre RN Attempted to reach patient at [phone]. Left detailed message with office number. Tootie Delatorre RN Pt have questions regarding weight gain. Pt can be reached at documented in this encounter [facility] 07-05-2024 Telephone encounter Note Attempted to reach patient at [phone]. Left detailed message with office number. Tootie Delatorre RN [facility] 07-05-2024 Telephone encounter Note Pt have questions regarding weight gain. Pt can be reached at [facility] 07-03-2024 Telephone encounter Note Images from the original note were not included. Outside ep Jo Poole [facility] 07-03-2024 Miscellaneous Notes Images from the original note were not included. Outside ep Jo Poole documented in this encounter [facility] 06-29-2024 History of Present illness Narrative TRANSITION [...] oz) Patient was sent a message via LoopFuse including the link to the [facility] Heart Failure education video: No Initial contact with patient post discharge, spoke to patient, and verified that any applicable caregiver is active in patient's medical care. Patient identified by name and . Summary: -Pt discharged from [facility] on 06/27/24. -Medication review done Full [...] s/p VVI ICD 2003 and upgrade to [employer] RADIO OPERATOR-D with addition of RA and LV leads on 11/27/2023. He developed erosion of medial aspect of his incision with a pinpoint opening that progressed to device being exposed. He was treated with Doxycycline for three weeks without improvement. He was referred to [facility] for extraction. HOSPITAL COURSE: The patient was admitted to a [facility] under the EP service. Blood cultures [...] in proximal Cx, occluded SVG-OM graft and CUSTOMER MANAGEMENT SPECIALIST of proximal RCA with occluded SVG-rPDA. This [...] and underwent a successful extraction of complete CENTREX RADIO OPERATOR-D system without complications. Tissue and lead hardware cultures grew few Bacillus species and Staph epidermidis as well as one colony of Pseudomonas. Patient continued on IV vancomycin with plan to continue for 4 weeks post-extraction (through 07/17/23). Ciprofloxacin was added for coverage of Pseudomonas putida. ID cleared patient for right-sided CENTREX RADIO OPERATOR-D reimplantation. The patient was taken to the EP lab on 06/22/24 and underwent right-sided [employer]ENTREX RADIO OPERATOR-D reimplantation ([employer] device). Following the procedure, [...] Last 3 Encounter BP Readings: Date: BP: 06/27/202462 06/13/2024 124/68 Potassium Date Value Ref Range [...] Dept Phone 07/31/2024 9:00 AM [facility] [phone] 08/03/2024 1:30 PM DEVICE CLINIC CARD EP [facility]ICE [facility]IN[facility] MAIN [phone] 11/23/2024 9:45 AM DEVICE CLINIC CARD EP DEVICE CLINIC MAIN [phone] 11/23/2024 10:30 AM EKGJ1-4 MAIN EKG MAIN J1-4 11/23/2024 11:00 AM HVI DISCHARGE ECHO J3-5 VASM MAIN [phone] Interventions Made: Patient education/Medication counseling Pharmacist Recommendations Made None Care Coordination: None at this time Time spent on patient: 30-45 minutes Lui Alberto RPh June 29, 2024 9:51 AM documented in this encounter [facility] 06-29-2024 Note [facility] 06-26-2024 Note [facility] 06-25-2024 Note [facility] 06-24-2024 Note [facility] 06-24-2024 Note [facility] 06-24-2024 Note [facility] 06-23-2024 Note [facility] 06-22-2024 History of Present illness Narrative Dalbavancin Initiation and Follow up: Giles Bolton is being considered for dalbavancin therapy. Indication [...] benefits investigation have been processed. Eric Alarcon RPh 06/22/2024 3:43 PM documented in this encounter [facility] 06-22-2024 Note [facility] 06-22-2024 Note [facility] 06-22-2024 Note [facility] 06-21-2024 Note [facility] 06-20-2024 Note [facility] 06-20-2024 Note [facility] 06-20-2024 History of Present illness Narrative Images from the original note were not included. [facility] Outpatient Parenteral Antimicrobial Therapy (OPAT) Start Form Patient Info Patient MRN Patient Name Address Date of [id number] Giles Bolton [address] [id number] 1955 Start Date 06/20/2024 Physician Group Cc_main [...] up date/time Appointment type Sam King MD 510:00 EST In-person Provider Monitoring Treatment Course Sam King MD Address [address] [place] [address] Prescribing Provider's signature - electronically signed by Nusrat Irby MD on 06/20/24 at 10:41 AM documented in this encounter [facility] 06-19-2024 Note [facility] 06-19-2024 Note [facility] 06-19-2024 Note [facility] 06-19-2024 Note [facility] 06-18-2024 Note [facility] 06-17-2024 Note [facility] 06-17-2024 Note [facility] 06-16-2024 Note [facility] 06-16-2024 Note [facility] 06-16-2024 Note [facility] 06-15-2024 Note [facility] 06-14-2024 Note [facility] 06-14-2024 Note [facility] 06-14-2024 Note [facility] 06-13-2024 History of Present illness Narrative Images from the original note were not included. [facility] Department of Cardiovascular Medicine SECTION OF CARDIAC PACING and ELECTROPHYSIOLOGY OUTPATIENT VISIT DATE June 13, 2024 OUTPATIENT VISIT TYPE NEW PRIMARY CARE PHYSICIAN: To use this Smartlink, specify the provider ID whose address you want to display, e.g., .[email or web address][1 (where 1 is the provider ID). REFERRING PHYSICIAN: Quyen Jackson MD [address] [place] [address] CHIEF COMPLAINT: Device management and Pocket infection HISTORY OF PRESENT ILLNESS: Giles Bolton is a 69 y/o male who presents [...] Lakesha Jarrett MD documented in this encounter [facility] 06-13-2024 Note [facility] 05-29-2024 Telephone encounter Note Images from the original note were not included. Records are in Care Everywhere: Jo Poole [facility] 05-29-2024 Miscellaneous Notes Images from the original note were not included. Records are in Care Everywhere: Jo Poole documented in this encounter [facility] 05-19-2024 Note [facility] Reason for Consultation: Erosion of defibrillator pocket HPI: Giles Bolton is a 69 y.o. year old with past medical history of Dilated cardiomyopathy and status post biventricular ICD placement. The medial aspectOf the pacer pocket pocket has erodedExposing parts of the defibrillator system to the outside. I think at this point the device is not salvageable and will need to be removed. I am going to refer him to the [facility] for extraction. I spent over 45 minutes in [id number] patient counseling and therapeutic decision making where [...] file Stress: No Stress Concern Present (08/11/2023) [employer] [employer] - Occupational Stress Questionnaire Feeling of Stress : Not at all Social Connections: Moderately Integrated (08/11/2023) Social Connection and Isolation Panel [NHANES] Frequency of Communication with Friends and Family: More than three times a week Frequency of Social Gatherings with Friends and Family: More than three times a week Attends Spiritism Services: More than 4 times per year [...] on file Utilities: Not At Risk (08/11/2023) [facility] Utilities Threatened with loss of utilities: No [...] 40 mg by (more content not included)... [facility] 05-12-2024 Note [facility] Reason for Consultation: Potential erosion at site of biventricular ICD system HPI: Giles Bolton is a 69 y.o. year old with [...] file Stress: No Stress Concern Present (08/11/2023) [employer] - Occupational Stress Questionnaire Feeling of Stress : Not at all Social Connections: Moderately Integrated (08/11/2023) Social Connection and Isolation Panel [NHANES] Frequency of Communication with Friends and Family: More than three times a week Frequency of Social Gatherings with Friends and Family: More than three times a week Attends Spiritism Services: More than 4 times per year [...] on file Utilities: Not At Risk (08/11/2023) [facility] Utilities Threatened with loss of utilities: No [...] mg 24 h (more content not included)... [facility] 08-09-2023 History of Present illness Narrative [...] 20%, recent CHF exacerbation and admitted at [facility] for it. Patient on appropriate GDMT. Following [facility] cardiology. S/p AICD. Recent LEXISCAN - no evidence of ischemia. Subjective Patient ID: Giles Bolton is a 68 y.o. male who presents for Establish Care. New Patient, here to establish care. Reviewed medical, surgical and social hx. Reviewed available old records. Reviewed and updated medication list. Recent hospital admission at [facility] for acute on chronic systolic HF. Patient [...] Items Addressed This Visit RESOLVED: HLD (hyperlipidemia) ([facility]) Relevant Orders Lipid panel CAD (coronary artery disease) ([facility]) S/p CABG and multiple stents placed afterwards. Recent Lexiscan 06/19 - no reversible ischemia. C/w ASA, Plavix. COPD mixed type ([facility]) Diabetes ([facility]) Reports Fsbs usually in 100s. No hypoglycemia. discontinue alogliptin. C/w jardiance. Check labs. Relevant Orders CBC and differential Comprehensive metabolic panel Hemoglobin A1c Albumin, urine, random Creatinine, urine, random Essential hypertension ([facility]) - Primary Too tightly controlled and hypotensive [...] 20%, recent CHF exacerbation and admitted at [facility] for it. Patient on appropriate GDMT. Following [facility] cardiology. S/p AICD. Recent LEXISCAN - no [...] weeks (around 09/06/2023). documented in this encounter [facility] Healthcare Evaluation note Diagnosis Essential hypertension ([facility])- Primary Unspecified essential hypertension HFrEF (heart failure with reduced ejection fraction) ([facility]) Coronary artery disease involving [place] coronary artery of [place] heart without angina pectoris ([facility]) Hyperlipidemia, unspecified hyperlipidemia type ([facility]) COPD mixed type ([facility]) Type 2 diabetes mellitus without complication, without long-term current use of insulin ([facility]) Generalized muscle ache Encounter to establish care with new doctor documented in this encounter [facility] HealthcareEvaluation note* Diagnosis Palpitations- Primary Pacemaker reprogramming/check Fitting and adjustment of cardiac pacemaker [facility] Pacemaker reprogramming/check Fitting and adjustment of cardiac pacemaker [facility] Diagnosis Cardiac resynchronization therapy defibrillator (C[employer] RADIO OPERATOR-D) in place- Primary Infection of biventricular implantable cardioverter-defibrillator (ICD), initial encounter ([facility]) HFrEF (heart failure with reduced ejection fraction) (HCC) Heart failure, unspecified Cardiomyopathy, ischemic Other specified forms of chronic ischemic heart disease Infection involving implantable cardioverter-defibrillator (ICD), initial encounter (HCC) Infection and inflammatory reaction due to cardiac device, implant, and graft, initial encounter ([facility]) Ischemic cardiomyopathy Other specified forms of chronic ischemic heart disease Chronic systolic CHF (congestive heart failure) (HCC) Chronic systolic heart failure [facility] Diagnosis Persistent atrial fibrillation (HCC)- Primary Atrial fibrillation Pacemaker reprogramming/check Fitting and adjustment of cardiac pacemaker Pacemaker reprogramming/check Fitting and adjustment of cardiac pacemaker [facility] Diagnosis Pacemaker reprogramming/check Fitting and adjustment of cardiac pacemaker Pacemaker reprogramming/check Fitting and adjustment of cardiac pacemaker documented [facility] Diagnosis ICD (implantable cardioverter-defibrillator) infection, initial encounter ([facility])- Primary Pacemaker reprogramming/check Fitting and adjustment of cardiac pacemaker documented [facility] Diagnosis Acute myocardial infarction, subendocardial infarction, initial episode of care ([facility]) Acute myocardial infarction, subendocardial infarction, initial episode of care documented [facility] encounter [facility]* Diagnosis Acute myocardial infarction, subendocardial infarction, initial episode of care ([facility]) Acute myocardial infarction, subendocardial infarction, initial episode of care [facility] Diagnosis Acute myocardial infarction, subendocardial infarction, initial episode of care ([facility]) Acute myocardial infarction, subendocardial infarction, initial episode of care [facility]* Diagnosis Acute myocardial infarction, subendocardial infarction, initial episode of care ([facility]) Acute myocardial infarction, subendocardial infarction, initial episode of care [facility] Diagnosis Acute myocardial infarction, subendocardial infarction, initial episode of care ([facility]) Acute myocardial infarction, subendocardial infarction, initial episode of care [facility] Diagnosis Acute myocardial infarction, subendocardial infarction, initial episode of care ([facility]) Acute myocardial infarction, subendocardial infarction, initial episode of care [facility]* Diagnosis Acute myocardial infarction, subendocardial infarction, initial episode of care ([facility]) Acute myocardial infarction, subendocardial infarction, initial episode of care documented in this encounter [facility]* Diagnosis Acute myocardial infarction, subendocardial infarction, initial episode of care ([facility]) Acute myocardial infarction, subendocardial infarction, initial episode of care [facility] Acute myocardial infarction, subendocardial infarction, initial episode of care ([facility]) Acute myocardial infarction, subendocardial infarction, initial episode of care [facility] Diagnosis Acute myocardial infarction, subendocardial infarction, initial episode of care ([facility]) Acute myocardial infarction, subendocardial infarction, initial episode of care [facility] Diagnosis Acute myocardial infarction, subendocardial infarction, initial episode of care ([facility]) Acute myocardial infarction, subendocardial infarction, initial episode of care [facility] Diagnosis Acute myocardial infarction, subendocardial infarction, initial episode of care ([facility]) Acute myocardial infarction, subendocardial infarction, initial episode of care [facility] Diagnosis Acute myocardial infarction, subendocardial infarction, initial episode of care ([facility]) Acute myocardial infarction, subendocardial infarction, initial episode of care [facility] Diagnosis ICD (implantable cardioverter-defibrillator) infection, initial encounter ([facility])- Primary Pacemaker reprogramming/check Fitting and adjustment of cardiac pacemaker documented [facility] Diagnosis Essential hypertension ([facility])- Primary Unspecified essential hypertension HFrEF (heart failure with reduced ejection fraction) ([facility]) Coronary artery disease involving [place] coronary artery of [place] heart without angina pectoris ([facility]) Hyperlipidemia, unspecified hyperlipidemia type ([facility]) COPD mixed type ([facility]) Type 2 diabetes mellitus without complication, without long-term current use of insulin ([facility]) Generalized muscle ache Encounter to establish care with new doctor HFrEF (heart failure with reduced ejection fraction) ([facility])- Primary Essential hypertension ([facility]) Unspecified essential hypertension Paroxysmal atrial fibrillation ([facility]) Atrial fibrillation Other hyperlipidemia ([facility]) Non-recurrent acute suppurative otitis media of left [...] systems involvement (CMS/HCC) Coronary artery disease involving [place] coronary artery of [place] heart without angina pectoris (CMS/HCC) HFrEF (heart [...] using Cologuard test documented in this encounter [facility]* Diagnosis Positive colorectal cancer screening using Cologuard test- Primary [facility] Diagnosis Essential hypertension (CMS/HCC)- Primary Unspecified essential hypertension HFrEF (heart failure with reduced ejection fraction) (CMS/HCC) Coronary artery disease involving [place] coronary artery of [place] heart without angina pectoris (CMS/HCC) Hyperlipidemia, unspecified hyperlipidemia type (CMS/HCC) COPD mixed type (CMS/HCC) Type 2 diabetes mellitus without complication, without long-term current use of insulin Generalized muscle ache Encounter to establish care with new doctor HFrEF (heart failure with reduced ejection fraction) (CMS/HCC)- Primary Essential hypertension (CMS/HCC) Unspecified essential hypertension Paroxysmal atrial fibrillation (CMS/HCC) Atrial fibrillation Other hyperlipidemia Non-recurrent acute suppurative otitis media of left [...] with reduced ejection fraction) (CMS/HCC) Other hyperlipidemia Type 2 diabetes mellitus without complication, without long-term current use of insulin Right leg pain- Primary Pain in soft tissues of limb Paroxysmal atrial fibrillation (CMS/HCC) Atrial fibrillation Other ventricular tachycardia Phantom limb syndrome with pain (CMS/HCC) Phantom limb (syndrome) 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) Coronary artery disease involving [place] coronary artery of [place] heart without angina pectoris (CMS/HCC) HFrEF (heart failure with reduced ejection fraction) (CMS/HCC) Essential hypertension (CMS/HCC) Unspecified essential hypertension Persistent atrial fibrillation (HCC) (CMS/HCC) Atrial fibrillation Gastroesophageal reflux disease, unspecified whether esophagitis present Benign prostatic hyperplasia, unspecified whether lower urinary tract symptoms present Type 2 diabetes mellitus without complication, without long-term current use of insulin Positive colorectal cancer screening using Cologuard test 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)- Primary Chronic combined systolic and diastolic heart failure Essential hypertension (CMS/HCC) Unspecified essential hypertension Subacute maxillary sinusitis Environmental and seasonal allergies documented in this encounter [facility]* Diagnosis Pacemaker reprogramming/check Fitting and adjustment of cardiac pacemaker documented in this encounter [facility]InstructionsNot on filedocumented in this encounterProPrem[facility] SystemInstructionsNot on filedocumented in this encounterBrown [facility] SystemInstructionsNot on filedocumented in this encounterBrown [facility] SystemInstructionsNot on filedocumented in this encounterBrown [facility] InstructionsNot on filedocumented in [facility] encounterC[facility] InstructionsNot on filedocumented in this encounterCleveland Clinic Mentor HospitalReason for referral (narrative)* Outpatient Procedure (Routine) - Authorized Specialty Diagnoses / Procedures Referred By Contac t Referred To Contact [facility] Diagnoses Palpitations Procedures ECG COMPLETE ECG ROUTINE ECG W/LEAST 12 LDS W/I&R Lakesha Jarrett MD [id number] [place] [address] Referral ID Status Reason Start Date Expiration Date Visits Requested Visits Authorized [id number] Authorized Auto-Generat ed Referral 05/29/2024 05/29/2025 1 1 [facility] for referral (narrative)* Outpatient Procedure (Routine) - Closed Specialty Diagnoses / Procedures [facility] Referred To Contact [facility] Diagnoses Pacemaker reprogramming/check Procedures CARDIAC IMPLANTABLE DEVICE CHECK Card Ep Device [facility] Main [address] [place] [address] [id number] Referral ID Status Reason Start Date Expiration Date V isits Requested Visits Authorized [id number] Closed Auto-Generate d Referral 05/29/2024 05/29/2025 1 1 * Outpatient Procedure (Routine) - Closed Specialty Diagnoses / Procedures [facility] Referred To Contact [facility] Diagnoses Pacemaker reprogramming/check Procedures CARDIAC IMPLANTABLE DEVICE CHECK Card Ep Device [facility] Main [address] [place] [address] [address] Referral ID Status Reason Start Date Expiration Date V isits Requested Visits Authorized [id number] Closed Auto-Generate d Referral 05/29/2024 05/29/2025 1 1 [facility] for referral (narrative)* Outpatient Procedure (Routine) - Pending Review Specialty Diagnoses / Procedures Referred By Contac t Referred [facility] Diagnoses Persistent atrial fibrillation (HCC) Procedures ECHO ECHO TTHRC R-T 2D W/WOM-MODE COMPL SPEC&COLR D Lakesha Jarrett MD [address] [place] [address] [address] Referral ID Status Reason Start Date Expiration Date Visits Requested Visits Authorized [id number] Pending Review Auto-Generat ed Referral 4 06/22/2025 1 1 * Outpatient Procedure (Routine) - Pending Review Specialty Diagnoses / Procedures Referred By Lauri perez Referred To [facility] Diagnoses Persistent atrial fibrillation (HCC) Procedures ECG COMPLETE ECG ROUTINE ECG W/LEAST 12 LDS W/I&R Lakesha Jarrett MD [address] [place] [address] [address] Referral ID Status Reason Start Date Expiration Date Visits Requested Visits Authorized [id number] Pending Review Auto-Generat ed Referral 4 06/22/2025 1 1 [facility] for referral (narrative)* Outpatient Procedure (Routine) - Closed Specialty Diagnoses / Procedures [facility] Referred To [facility] Diagnoses Pacemaker reprogramming/check Procedures CARDIAC IMPLANTABLE DEVICE CHECK Card Ep Device Clinic Main [id number] [address] Referral ID Status Reason Start Date Expiration Date V isits Requested Visits Authorized [id number] Closed Auto-Generate d Referral 06/22/2024 06/22/2025 1 1 [facility] for visit Narrative* Outpatient Procedure (Routine) - Closed Specialty Diagnoses / Procedures Referred By Contkevin t Referred To [facility] Diagnoses Pacemaker reprogramming/check Procedures CARDIAC IMPLANTABLE DEVICE CHECK Card Ep Device Clinic Main [address] [place] [address] [address] Referral ID Status Reason Start Date Expiration Date V isits Requested Visits Authorized [id number] Closed Auto-Generate d Referral 05/29/2024 05/29/2025 1 1 [facility] for visit Narrative* Outpatient Procedure (Routine) - Closed Specialty Diagnoses / Procedures Referred By Contac t Referred To Contact [facility] Diagnoses Pacemaker reprogramming/check Procedures CARDIAC IMPLANTABLE DEVICE CHECK Card Ep Device Clinic Main [address] [place] [address] [address] Referral ID Status Reason Start Date Expiration Date V isits Requested Visits Authorized [id number] Closed Auto-Generate d Referral 06/22/2024 06/22/2025 1 1 [facility] for visit Narrative* Consultation (Routine) - Pending Review Specialty Diagnoses / Procedures Referred By Contac t Referred To Contact [facility] Diagnoses Acute myocardial infarction, subendocardial infarction, initial episode of care ([facility]) Procedures Ambulatory referral to Cardiac Rehabilitation ([facility]) Marlys Estrada MD [address] [facility], [address] [place] [address] Referral ID Status Reason Start Date Expiration Date V isits Requested Visits Authorized [id number] Pending Review 07/12/2023 07/11/2024 36 36 [facility] for visit Narrative* Outpatient Procedure (Routine) - Closed Specialty Diagnoses / Procedures Referred By Contac t Referred To Contact [facility] Diagnoses Pacemaker reprogramming/check Procedures CARDIAC IMPLANTABLE DEVICE CHECK REM INTERROG PM/LDLS PM <90 D PHYS/QHP Cardiology [address] [place] [address] Phone: tel: [address] [phone] Referral ID Status Reason Start Date Expiration Date V isits Requested Visits Authorized [id number] Closed Auto-Generated Referral Clearance Not Met -Financial Clearance Bypassed or Pt Declined to Pay 06/22/2024 06/22/2025 1 0 [facility] Summary Purpose Family History No Family History Records FoundNo Family History Records FoundNo Family History Records FoundNo Family History Records FoundNo Family History Records FoundNo Family History Records FoundNo Family History Records FoundNo Family History Records FoundNo Family History Records Found Advance Directives No Advanced Directives Records Found Date Activated Date Inactivated Comments 06/13/2024 2:59 [...] Referral Specialty Diagnoses / Procedures Referred By Lauri t Referred [facility] Diagnoses Cardiac resynchronization therapy defibrillator ([employer] RADIO OPERATOR-D) in place Infection of biventricular implantable cardioverter-defibrillator (ICD), initial encounter ([facility]) HFrEF (heart failure with reduced ejection fraction) ([facility]) Cardiomyopathy, ischemic Infection involving implantable cardioverter-defibrillator (ICD), initial encounter ([facility]) Procedures CARDIOVASCULAR MEDICINE OP FOLLOW UP APPT ORDER Lakehsa Jarrett MD [address] [place] [address] [facility] [address] [place] [address] Referral ID Status Reason Start Date Expiration Date Visits Requested Visits Authorized [id number] Authorized PCP Requested Referral 4 06/18/2025 1 1 Additional Source Comments (unrecognized sect ion and content) No Status Records FoundNo Status Records FoundNo Status Records FoundNo Status Records FoundNo Status Records FoundNo Status Records FoundNo Status Records FoundNo Status Records FoundNo Status Records Found INFORMATION SOURCE (unrecogn ized section and content) DATE CREATED AUTHOR 04/25/2018 [facility] DATE CREATED AUTHOR AUTHOR'S ORGANIZ ATION 02/27/2021 [facility] DATE CREATED AUTHOR AUTHOR'S ORGANIZ ATION 08/18/2023 [facility] DATE CREATED AUTHOR AUTHOR'S ORGANIZ ATION 11/28/2023 [facility] DATE CREATED AUTHOR AUTHOR'S ORGANIZ ATION 10/13/2024 [facility] DATE CREATED AUTHOR AUTHOR'S ORGANIZ ATION 11/14/2024 [facility] DATE CREATED AUTHOR AUTHOR'S ORGANIZ ATION 01/05/2025 [facility] DATE CREATED AUTHOR AUTHOR'S ORGANIZ ATION 03/14/2025 [facility] DATE CREATED AUTHOR AUTHOR'S ORGANIZ ATION 04/03/2025 [facility] (unrecognized sec tion and content) Laboratory Inspector Relationship Specialty Start Date End Date Shaikh Bautista MD [address] [place] [address] PCP - General Internal Medicine 08/09/23 Laboratory Inspector Relationship Specialty Start Date End Date Shaikh Bautista MD [address] [place] [address] PCP - General Internal Medicine 08/09/23 Laboratory Inspector Relationship Specialty Start Date End Date Shaikh Bautista MD [address] [place] [address] PCP - General Internal Medicine 08/09/23 Laboratory Inspector Relationship Specialty Start Date End Date Quyen Jackson [address] [place] [address] PCP - General Cardiology 06/13/24 Marlys Estrada MD [address] [place] [address] Internal Medicine 06/13/24 Laboratory Inspector Relationship Specialty Start Date End Date Quyen Jackson [address] [place] [address] PCP - General Cardiology 06/13/24 Marlys Estrada MD [address] [place], [place] [phone] Internal Medicine 06/13/24 Laboratory Inspector Relationship Specialty Start Date End Date Quyen Jackson [address] [place] [address] PCP - General Cardiology 06/13/24 Marlys Estrada MD [address] [place] [address] Internal Medicine 06/13/24 Laboratory Inspector Relationship Specialty Start Date End Date Quyen Jackson [address] [place] [address] PCP - General Cardiology 06/13/24 Marlys Estrada MD [address] [facility] [place] [address] Internal Medicine 06/13/24 Laboratory Inspector Relationship Specialty Start Date End Date Quyen Jackson [address] [place] [address] PCP - General Cardiology 06/13/24 Marlys Estrada MD [address] [place] [address] Internal Medicine 06/13/24 Laboratory Inspector Relationship Specialty Start Date End Date Quyen Jackson [address] [place] [address] PCP - General Cardiology 06/13/24 Marlys Estrada MD [address] [place], [place] [address] Internal Medicine 06/13/24 Laboratory Inspector Relationship Specialty Start Date End Date Quyen Jackson [address] [place] [address] PCP - General Cardiology 06/13/24 Marlys Estrada MD [address] [place], [place] [phone] Internal Medicine 06/13/24 Laboratory Inspector Relationship Specialty Start Date End Date Quyen Jackson [address] [place] [address] PCP - General Cardiology 06/13/24 Marlsy Estrada MD [address] [facility] [place], [place] [phone] Internal Medicine 06/13/24 Lui Alberto [facility] [address] [facility] [place] [address] Transitional Care Pharmacist Pharmacy 06/29/24 07/30/24 Laboratory Inspector Relationship Specialty Start Date End Date Quyen Jackson [address] [place] [address] PCP - General Cardiology 06/13/24 Marlys Estrada MD [address] [place] [address] Internal Medicine 06/13/24 Lui Alberto [facility] [address] [facility] [place] [address] Transitional Care Pharmacist Pharmacy 06/29/24 07/30/24 Laboratory Inspector Relationship Specialty Start Date End Date Quyen Jackson [address] [facility] [place] [address] PCP - General Cardiology 06/13/24 Marlys Estrada MD [address] [place] [address] Internal Medicine 06/13/24 [facility] [address] [place] [address] Transitional Care Pharmacist Pharmacy 06/29/24 07/30/24 Laboratory Inspector Relationship Specialty Start Date End Date Quyen Jackson [address] [place] [address] PCP - General Cardiology 06/13/24 Marlys Estrada MD [address] [facility] [place] [address] Internal Medicine 06/13/24 [facility] [address] [place] [address] Transitional Care Pharmacist Pharmacy 06/29/24 07/30/24 Laboratory Inspector Relationship Specialty Start Date End Date Quyen Jackson [address] [place] [address] PCP - General Cardiology 06/13/24 Marlys Estrada MD [address] [facility] [place] [address] Internal Medicine 06/13/24 [facility] [address] [place] [address] Transitional Care Pharmacist Pharmacy 06/29/24 07/30/24 Laboratory Inspector Relationship Specialty Start Date End Date Quyen Jackson [address] [place] [phone] PCP - General Cardiology 06/13/24 Marlys Estrada MD [address] [place], [place] [phone] Internal Medicine 06/13/24 Laboratory Inspector Relationship Specialty Start Date End Date Quyen Jackson [address] [place] [address] PCP - General Cardiology 06/13/24 Marlys Estrada MD [address] [place], [place] [address]23 Internal Medicine 06/13/24 Laboratory Inspector Relationship Specialty Start Date End Date Mark Tam DO [address] [place] [address] PCP - General Family Medicine 02/02/19 Laboratory Inspector Relationship Specialty Start Date End Date Mark Tam DO [address] [place] [address] PCP - General Family Medicine 02/02/19 Laboratory Inspector Relationship Specialty Start Date End Date Mark Tam DO [address] [place] [address] PCP - General Family Medicine 02/02/19 Laboratory Inspector Relationship Specialty Start Date End Date Mark Tam DO [address] [place] [address] PCP - General Family Medicine 07/21/23 Laboratory Inspector Relationship Specialty Start Date End Date Mark Tam DO [address] [place] [address] PCP - General Family Medicine 07/21/23 Laboratory Inspector Relationship Specialty Start Date End Date Mark Tam DO [address] [place] [address] PCP - General Family Medicine 07/21/23 Laboratory Inspector Relationship Specialty Start Date End Date Mark Tam DO [address] [place] [address] PCP - General Family Medicine 07/21/23 Laboratory Inspector Relationship Specialty Start Date End Date Mark Tam DO [address] [place] [address] PCP - General Family Medicine 07/21/23 Laboratory Inspector Relationship Specialty Start Date End Date Mark Tam DO [address] [place] [address] PCP - General Family Medicine 07/21/23 Laboratory Inspector Relationship Specialty Start Date End Date Mark Tam DO [address] [place] [address] PCP - General Family Medicine 07/21/23 Laboratory Inspector Relationship Specialty Start Date End Date Mark Tam DO [address] [place] [address] PCP - General Family Medicine 07/21/23 Laboratory Inspector Relationship Specialty Start Date End Date Mark Tam DO [address] [facility] [place] [address] PCP - General Family Medicine 07/21/23 Laboratory Inspector Relationship Specialty Start Date End Date YonatanMarkDO [address] [facility] [place] [address] PCP - General Family Medicine 07/21/23 Laboratory Inspector Relationship Specialty Start Date End Date Shaikh Bautista MD [address] [address] PCP - General Internal Medicine 09/30/23 Laboratory Inspector Relationship Specialty Start Date End Date Yonatan Mark BairdDO [address] [place] [address] PCP - General Family Medicine 07/21/23 09/29/23 Laboratory Inspector Relationship Specialty Start Date End Date Shaikh Bautista MD [address] [place] [address] PCP - General Internal Medicine 09/30/23 Laboratory Inspector Relationship Specialty Start Date End Date Shaikh Bautista MD [address] [place] [address] PCP - General Internal Medicine 09/30/23 Laboratory Inspector Relationship Specialty Start Date End Date Shaikh Bautista MD [address] [place] [address] PCP - General Internal Medicine 09/30/23 Laboratory Inspector Relationship Specialty Start Date End Date Shaikh Bautista MD [address] [place] [address] PCP - General Internal Medicine 09/30/23 Laboratory Inspector Relationship Specialty Start Date End Date Shaikh Bautista MD [address] [place] [address] PCP - General Internal Medicine 09/30/23 Laboratory Inspector Relationship Specialty Start Date End Date Shaikh Bautista MD [address] [place] [address] PCP - General Internal Medicine 09/30/23 Laboratory Inspector Relationship Specialty Start Date End Date Shaikh Bautista MD [address] [place] [address] PCP - General Internal Medicine 09/30/23 Laboratory Inspector Relationship Specialty Start Date End Date Shaikh Bautista MD [address] [place] [address] PCP - General Internal Medicine 09/30/23 Laboratory Inspector Relationship Specialty Start Date End Date Shaikh Bautista MD [address] [place] [address] PCP - General Internal Medicine 09/30/23 Laboratory Inspector Relationship Specialty Start Date End Date Shaikh Bautista MD [address] [place] [address] PCP - General Internal Medicine 09/30/23 Laboratory Inspector Relationship Specialty Start Date End Date Christiano Tam MD [address] [place] [address] PCP - General Family Medicine 02/21/24 Shaikh Bautista MD [address] [place] [address] PCP - José Miguel HER 07/29/24 Lana Kay, PUSHPA [address] [place] [address] Nurse Practitioner Family Medicine 02/21/24 Laboratory Inspector Relationship Specialty Start Date End Date Christiano Tam MD [address] [place] [address] PCP - General Family Medicine 02/21/24 Shaikh Bautista MD [address] [place] [address] PCP - José Miguel HER 07/29/24 Lana Kay, PUSHPA [address] [place] [address] Nurse Practitioner Family Medicine 02/21/24 Laboratory Inspector Relationship Specialty Start Date End Date Maame Thakkar, PRODUCT MARKETING MANAGER-BOOK EDITOR [address] [place] [address] PCP - General Nurse Practitioner 09/18/24 Laboratory Inspector Relationship Specialty Start Date End Date Maame Thakkar, PRODUCT MARKETING MANAGER-BOOK EDITOR [address] [place] [address] PCP - General Nurse Practitioner 09/18/24 Laboratory Inspector Relationship Specialty Start Date End Date Maame Thakkar, PRODUCT MARKETING MANAGER-BOOK EDITOR [address] [place] [address] PCP - General Nurse Practitioner 09/18/24 Laboratory Inspector Relationship Specialty Start Date End Date Maame Thakakr, PRODUCT MARKETING MANAGER-BOOK EDITOR [address] [place] [address] PCP - General Nurse Practitioner 09/18/24 Laboratory Inspector Relationship Specialty Start Date End Date Christiano Tam MD [address] [place] [address] PCP - General Family Medicine 02/21/24 Shaikh Bautista MD [address] [place] [address] PCP - José Miguel HER 07/29/24 Lana Kay NP [address] [place] [address] Nurse Practitioner Family Medicine 02/21/24 Laboratory Inspector Relationship Specialty Start Date End Date Christiano Tam MD [address] [place] [address] PCP - General Family Medicine 02/21/24 Shaikh Bautista MD [address] [place] [address] PCP Kia Valdez MA 07/29/24 Lana Kay NP [address] [place] [address] Nurse Practitioner Family Medicine 02/21/24 Laboratory Inspector Relationship Specialty Start Date End Date Manuel[address]yen [address] [place] [address] PCP - General Cardiology 06/13/24 Marlys Estrada MD [address] [place] [address] Internal Medicine 06/13/24 Reason for Visit (unrecogniz ed section and content) Reason Comments Establish Care Reason Comments Patient Update From Dr. Darnell- Recor ds are in Care Everywhere Reason Onset Date Comments Cardiomyopathy 06/18/2024 ICD 06/18/2024 Reason Comments CoPat Start Reason Comments Medication Follow-up Dalbavancin Reason Onset Date Comments Transition Of Care 06/29/2024 TCM Pharmacy- Hospital discharge 06/27/24 Reason Comments Received Outside Medical Records Labs [facility] Reason Comments courtesy call Reason Comments Infection Follow Up Reason Comments Appointment Specialty Diagnoses / Procedures Referred By Contkevin t Referred To Contact Diagnoses Acute myocardial infarction, subendocardial infarction, initial episode of care ([facility]) Procedures AMB REFERRAL TO CARDIAC REHAB Referral ID Status Reason Start Date Expiration Date Visits Re quested Visits Authorized [id number] 1 1 Referral ID Status Reason Start Date Expiration Date Visits Re quested Visits Authorized [id number] 1 1 Reason Comments Positive Cologuard POSITIVE COLOGUARD, REFERRED BY MAAME THAKKAR NP Specialty Diagnoses / Procedures Referred By Contac t Referred To Contact General Surgery Diagnoses Positive colorectal cancer screening using Cologuard test Procedures [place] OFFICE OUTPATIENT VISIT 60-74 MINS HIGH MDM [id number] (SNOMED CT) - AMB REFERRAL TO GENERAL SURGERY Maame Thakkar, PRODUCT MARKETING MANAGER-BOOK EDITOR [address] [place] [address] Phone: tel: fax: Nelly Muniz, [address] [place] [id number] Phone: tel: fax: Referral ID Status Reason Start Date Expiration Date Visits Re quested Visits Authorized [id number] Closed 09/18/2024 03/17/2025 1 1 Reason Comments Sinusitis Source Comments (unrecognize d section and content) In the event this informatio n is protected by the Federal Confidentiality of Alcohol and Drug Abuse Patient Records regulations: The Federal rules restrict any use of the information to criminally investigate or prosecute any alcohol or drug abuse patient.[facility] the event this information is protected by the Federal Confidentiality of Alcohol and Drug Abuse Patient Records regulations: The Federal rules restrict any use of the information to criminally investigate or prosecute any alcohol or drug abuse patient.[facility]In the event this information is protected by the Federal Confidentiality of Alcohol and Drug Abuse Patient Records regulations: The Federal rules restrict any use of the information to criminally investigate or prosecute any alcohol or drug abuse patient.[facility]In the event this information is protected by the Federal Confidentiality of Alcohol and Drug Abuse Patient Records regulations: The Federal rules restrict any use of the information to criminally investigate or prosecute any alcohol or drug abuse patient.[facility]In the event this information is protected by the Federal Confidentiality of Alcohol and Drug Abuse Patient Records regulations: The Federal rules restrict any use of the information to criminally investigate or prosecute any alcohol or drug abuse patient.[facility]In the event this information is protected by the Federal Confidentiality of Alcohol and Drug Abuse Patient Records regulations: The Federal rules restrict any use of the information to criminally investigate or prosecute any alcohol or drug abuse patient.[facility] SouthIn the event this information is protected by the Federal Confidentiality of Alcohol and Drug Abuse Patient Records regulations: The Federal rules restrict any use of the information to criminally investigate or prosecute any alcohol or drug abuse patient.[facility]In the event this information is protected by the Federal Confidentiality of Alcohol and Drug Abuse Patient Records regulations: The Federal rules restrict any use of the information to criminally investigate or prosecute any alcohol or drug abuse patient.[facility] SouthIn the event this information is protected by the Federal Confidentiality of Alcohol and Drug Abuse Patient Records regulations: The Federal rules restrict any use of the information to criminally investigate or prosecute any alcohol or drug abuse patient.[facility]In the event this information is protected by the Federal Confidentiality of Alcohol and Drug Abuse Patient Records regulations: The Federal rules restrict any use of the information to criminally investigate or prosecute any alcohol or drug abuse patient.[facility]In the event this information is protected by the Federal Confidentiality of Alcohol and Drug Abuse Patient Records regulations: The Federal rules restrict any use of the information to criminally investigate or prosecute any alcohol or drug abuse patient.[facility] SouthIn the event this information is protected by the Federal Confidentiality of Alcohol and Drug Abuse Patient Records regulations: The Federal rules restrict any use of the information to criminally investigate or prosecute any alcohol or drug abuse patient.[facility]In the event this information is protected by the Federal Confidentiality of Alcohol and Drug Abuse Patient Records regulations: The Federal rules restrict any use of the information to criminally investigate or prosecute any alcohol or drug abuse patient.[facility]In the event this information is protected by the Federal Confidentiality of Alcohol and Drug Abuse Patient Records regulations: The Federal rules restrict any use of the information to criminally investigate or prosecute any alcohol or drug abuse patient.[facility]In the event this information is protected by the Federal Confidentiality of Alcohol and Drug Abuse Patient Records regulations: The Federal rules restrict any use of the information to criminally investigate or prosecute any alcohol or drug abuse patient.[facility]In the event this information is protected by the Federal Confidentiality of Alcohol and Drug Abuse Patient Records regulations: The Federal rules restrict any use of the information to criminally investigate or prosecute any alcohol or drug abuse patient.[facility] SouthIn the event this information is protected by the Federal Confidentiality of Alcohol and Drug Abuse Patient Records regulations: The Federal rules restrict any use of the information to criminally investigate or prosecute any alcohol or drug abuse patient.[facility] SouthIn the event this information is protected by the Federal Confidentiality of Alcohol and Drug Abuse Patient Records regulations: The Federal rules restrict any use of the information to criminally investigate or prosecute any alcohol or drug abuse patient.[facility] FOR RECORDS PERTAINING TO PATIENTS WHO ARE [...] BE BASED ON THE PRIMARY CLINICAL RECORDS. [employer] [facility]. provides no warranty or guarantee of the accuracy or completeness of information in this document.
[2025-04-05 11:57] LABS: Alanine Aminotransferase 25 U/L (16-63); Aspartate Amino Transferase 20 U/L (15-37); Cholesterol 168 mg/dL (<=200); HDL Cholesterol 40 mg/dL (40-60); Triglycerides 85 mg/dL (<=150); VLDL CHOLESTEROL 17.0 mg/dL
== END 2025-04-05 11:05 | disposition home or self-care (01) ==
LOC: LAB 11:08
PROVIDERS: PCP Nurse Practitioner; Visit Provider Internal Medicine Cardiovascular Disease
DX: E78.00 Pure hypercholesterolemia, unspecified (principal)
CPT/HCPCS: 36415; 80061; 84450; 84460